=== PATIENT | male | born 1955 | race Caucasian/White ===

== ENCOUNTER → 2016-09-18 | Outpatient (REF) ==
[~2016-09-18] MED LIST: /CELE20CA OR; /PANT40TA; /PANT40TA OR; ABIL2TAB PO; ABILIFY PO; ACET-654 PO; ADVA115A IN; ALB2.5NEB INH; ALBU17IN INH; ALLO10TA PO; AMBI10TA OR; AMRIX; ATARAX; BACL10TA2; BACL10TA2 OR; CALC1CAP31 PO; CENTTAB PO; COMBIN INH; COUM2TAB10 PO; DOXY100T PO; ENDOCET OR; EUCECRE3 TOP; FERR325T PO; FLEXERIL PO; FLUC200T2 PO; GABA-283 PO; GLUC850T; GLUC850T OR; HYDROCODONE/APAP; INDO25CA2 OR; K-TA1TAB PO; LOTR2AER3 TOP; MELO7.5T3 PO; MULTIVIT PO; NEUR100C PO; NEUR400C; NEUR400C OR; NICOINH INH; NYST100024 TOP; OXYC20TA2 PO; OXYC20TA21 PO; OXYC5CAP4 OR; PANT40TA2 PO; PARO40TA PO; PAXI30TA; PAXI30TA OR; PERC5TAB6 PO; PERC5TAB8 OR; PRAV20TA2 OR; PROC1INJ5 INJ; VICO5TAB; VIT D 2000 PO; VIT D 4000 OR; VITA100066 PO; VITAMIN D50000 UNT; VITMTA PO; ZINC220T PO; ZOCO20TA; ZOCO40TA; ZOCO40TA OR; [UNRECOGNIZED DRUG - CODE] IM
[2016-09-18 11:17] LABS: MEAN CORPUSCULAR HEMOGLOBIN 28.9 pg (27.0-33.0); MEAN CORPUSCULAR HGB CONC 30.4 g/dl (32.0-36.5); RED CELL DISTRIBUTION WIDTH 14.6 % (11.5-14.5)
[2016-09-18 11:47] LABS: ALBUMIN 2.8 GM/DL (3.2-5.2); ALBUMIN/GLOBULIN RATIO 0.7 (1.00-1.93); BILIRUBIN,TOTAL 0.4 MG/DL (0.2-1.0); CALCIUM LEVEL 8.6 MG/DL (8.8-10.2); CREATININE FOR GFR 1.3 MG/DL (0.70-1.30); GLOMERULAR FILTRATION RATE 59.9 (>49); POTASSIUM SERUM 4.2 MEQ/L (3.5-5.1); TOTAL PROTEIN 6.8 GM/DL (6.4-8.2)
== END ==
PROVIDERS: ATTEND Internal Medicine
DX: D64.9 Anemia, unspecified (principal)

== ENCOUNTER → 2016-09-25 | Outpatient (REF) ==
[2016-09-25 12:26] LABS: MEAN CORPUSCULAR HGB CONC 30.7 g/dl (32.0-36.5); MEAN CORPUSCULAR VOLUME 94.2 fl (80.0-96.0); RED CELL DISTRIBUTION WIDTH 15.7 % (11.5-14.5); WHITE BLOOD COUNT 7.3 K/mm3 (4.0-10.0)
[2016-09-25 12:41] LABS: PERCENT SATURATION 11.7 % (19.7-37.4)
== END ==
PROVIDERS: ATTEND Internal Medicine
DX: D64.9 Anemia, unspecified (principal)

== ENCOUNTER → 2016-10-08 | Outpatient (REF) ==
[2016-10-08 11:00] LABS: MEAN CORPUSCULAR HEMOGLOBIN 29.4 pg (27.0-33.0); MEAN CORPUSCULAR HGB CONC 30.5 g/dl (32.0-36.5); MEAN CORPUSCULAR VOLUME 96.4 fl (80.0-96.0); RED CELL DISTRIBUTION WIDTH 14.7 % (11.5-14.5); WHITE BLOOD COUNT 8.6 K/mm3 (4.0-10.0)
== END ==
PROVIDERS: ATTEND Internal Medicine
DX: D64.9 Anemia, unspecified (principal)

== ENCOUNTER → 2016-10-14 | Outpatient (REF) ==
[~2016-10-14] MED LIST changes: +AMIT25TA PO; +AQUAOIN2 TOP; +METO5TAB2 PO; +MILKSUS PO; +MYLASUS2 PO; +OXYC-423 PO; +OXYC15TA76 PO; +PREG50CA PO; +WARF4TAB52 PO
[2016-10-14 17:37] LABS: ALBUMIN 3.2 GM/DL (3.2-5.2); ALBUMIN/GLOBULIN RATIO 0.73 (1.00-1.93); ALKALINE PHOSPHATASE 182 U/L (45-117); ALT/SGPT 71 U/L (12-78); ANION GAP 14 MEQ/L (8-16); AST/SGOT 62 U/L (15-37); BILIRUBIN,DIRECT 0.2 MG/DL (0.0-0.2); BILIRUBIN,TOTAL 0.5 MG/DL (0.2-1.0); BLOOD UREA NITROGEN 13 MG/DL (7-18); CALCIUM LEVEL 9.1 MG/DL (8.8-10.2); CARBON DIOXIDE LEVEL 27 MEQ/L (21-32); CHLORIDE LEVEL 99 MEQ/L (98-107); CREATININE FOR GFR 1.26 MG/DL (0.70-1.30); GLOMERULAR FILTRATION RATE > 60.0 (>49); GLUCOSE, FASTING 109 MG/DL (80-110); POTASSIUM SERUM 4.1 MEQ/L (3.5-5.1); SODIUM LEVEL 140 MEQ/L (136-145); TOTAL PROTEIN 7.6 GM/DL (6.4-8.2)
[2016-10-14 17:41] LABS: MEAN CORPUSCULAR HEMOGLOBIN 28.8 pg (27.0-33.0); MEAN CORPUSCULAR HGB CONC 30.9 g/dl (32.0-36.5); MEAN CORPUSCULAR VOLUME 93.3 fl (80.0-96.0); RED CELL DISTRIBUTION WIDTH 15.9 % (11.5-14.5); WHITE BLOOD COUNT 12.1 K/mm3 (4.0-10.0)
== END ==
PROVIDERS: ATTEND Internal Medicine
DX: D64.9 Anemia, unspecified (principal); R11.10 Vomiting, unspecified

== ENCOUNTER 2016-10-15 11:48 | Inpatient (IN) | payer OTHER ==
[~2016-10-15] VITALS: Ht 175.3 cm; Wt 111.2 kg
[~2016-10-15 11:48] MED LIST changes: -AMIT25TA PO; -AQUAOIN2 TOP; -METO5TAB2 PO; -MILKSUS PO; -MYLASUS2 PO; -OXYC-423 PO; -OXYC15TA76 PO; -PREG50CA PO; -WARF4TAB52 PO
[2016-10-15 12:40] LABS: BASO % 0.2 % (0.0-1.0); EOS # 0.1 K/mm3 (0.0-0.50); EOS % 0.6 % (0.0-3.0); LARGE UNSTAINED CELL # 0.2 K/mm3 (0.0-0.4); LARGE UNSTAINED CELL % 1.2 % (0.0-4.0); LYMPH # 1.2 K/mm3 (1.5-4.5); MEAN CORPUSCULAR HEMOGLOBIN 29.4 pg (27.0-33.0); MEAN CORPUSCULAR VOLUME 91.6 fl (80.0-96.0); MONO # 0.6 K/mm3 (0.0-0.8); MONO % 4.1 % (0.0-5.0); NEUTROPHILS # 12.7 K/mm3 (1.8-7.7); NEUTROPHILS % 85.8 % (36.0-66.0); PLATELET COUNT, AUTOMATED 334 k/mm3 (150-450); RED CELL DISTRIBUTION WIDTH 14.8 % (11.5-14.5); WHITE BLOOD COUNT 14.8 K/mm3 (4.0-10.0)
[2016-10-15 13:00] LABS: ALBUMIN 3.5 GM/DL (3.2-5.2); ALBUMIN/GLOBULIN RATIO 0.64 (1.00-1.93); ALKALINE PHOSPHATASE 184 U/L (45-117); ALT/SGPT 63 U/L (12-78); ANION GAP 12 MEQ/L (8-16); AST/SGOT 51 U/L (15-37); BILIRUBIN,DIRECT 0.3 MG/DL (0.0-0.2); BLOOD UREA NITROGEN 16 MG/DL (7-18); CALCIUM LEVEL 9.8 MG/DL (8.8-10.2); CARBON DIOXIDE LEVEL 26 MEQ/L (21-32); CHLORIDE LEVEL 99 MEQ/L (98-107); CREATININE FOR GFR 1.26 MG/DL (0.70-1.30); GLOMERULAR FILTRATION RATE > 60.0 (>49); GLUCOSE, FASTING 142 MG/DL (80-110); POTASSIUM SERUM 3.7 MEQ/L (3.5-5.1); SODIUM LEVEL 137 MEQ/L (136-145)
[2016-10-15] MEDS ORDERED: ONDANSETRON 4MG/2ML VIAL (J2405) As Ordered ONE (13:09)
[2016-10-15] MEDS ORDERED: GASTROGRAFIN SOLUTION 30ML (Q9963) As Ordered ONE (13:33)
[2016-10-15 13:53] LABS: INR 1.54
[2016-10-15] MEDS ORDERED: METOCLOPRAMIDE INJ 10MG/2ML VIAL (J2765) As Ordered ONE (14:15)
[2016-10-15] MEDS ORDERED: fentaNYL 100 MCG/2 ML INJECTION (J3010) As Ordered ONE ×2 (15:22→16:18)
--- NOTE | 2016-10-15 16:04 | REP ---
CT study abdomen and pelvis without IV but with oral contrast: History: Question obstruction. Comparison CT study June 27, 2016. CT findings: Digital panel beater radiograph demonstrates dilated central abdominal bowel loops. The lung bases are essentially clear. There is marked diffuse fatty infiltration of the liver. This is unchanged. Spleen is unremarkable. No adrenal lesion is seen on either side. No pancreatic abnormality is seen. The gallbladder is surgically absent. There are two small stable left renal cysts. The infrarenal abdominal aorta is resected and there is a right axillobifemoral bypass graft seen coursing to the groins. There is extensive postoperative change and deformity of the anterior abdominal wall as previously noted. There is a right lower quadrant colostomy. The patient appears to be status post left colon resection and erectile over sewing. There is some stool however in the rectum. There are multiple dilated small bowel loops in the large ventral hernia with evidence of dilated small bowel loops adherent to the anterior abdominal wall with some adjacent scarring and evidence of anterior abdominal wall fistula. There is an overlying dressing. The adherence and the appearance of fistula are unchanged but the loops involved are much more dilated than on the June 27, 2016 prior study. There is feces like consistency to the content of some of these ileal loops in the right side of the ventral hernia. No free air is seen. No intramural air or definite bowel wall thickening is seen. There is minimal fullness of the intrarenal collecting system on the right and minimal fullness of the left ureter is again seen unchanged. Small cysts are noted in the right kidney as well. Impression: Dilated small bowel loops adherent to the anterior abdominal wall with extensive postoperative deformity and evidence of a enterocutaneous fistula. Partial small bowel obstruction pattern. Other postoperative changes include cholecystectomy, aortic resection and axillobifemoral bypass grafting, as well as lumbar laminectomy and fusion. Renal cysts are again seen and there is marked fatty infiltration of the liver. Signed by Antolin Uribe MD 10/15/2016 04:24 P
[2016-10-15] MEDS ORDERED: BISACODYL 10 MG SUPP As Ordered ONE (16:17)
[2016-10-15] MEDS ORDERED: WARF4TAB52 PO (16:41)
[2016-10-15] MEDS ORDERED: AQUAOIN2 TOP (16:44)
[2016-10-15] MEDS ORDERED: FERR325T PO (16:44)
[2016-10-15] MEDS ORDERED: AMIT25TA PO (16:44)
[2016-10-15] MEDS ORDERED: PREG50CA PO (16:50)
[2016-10-15] MEDS ORDERED: OXYC-423 PO (16:50)
[2016-10-15] MEDS ORDERED: METO5TAB2 PO (16:50)
[2016-10-15] MEDS ORDERED: DOXY100T PO (16:50)
[2016-10-15] MEDS ORDERED: OXYC15TA76 PO (16:50)
[2016-10-15] MEDS ORDERED: MYLASUS2 PO (16:53)
[2016-10-15] MEDS ORDERED: MILKSUS PO (16:53)
[2016-10-15] MEDS ORDERED: LORazepam 2 MG/ML VIAL (J2060) As Ordered ONE (17:54)
[2016-10-15] MEDS ORDERED: MAALOX 30 ML SUSP *UDC PO PRN (18:15)
[2016-10-15] MEDS ORDERED: ALBUTEROL SULFATE 2.5 MG/0.5 ML INH NEB SOLN INH PRN (18:15)
[2016-10-15] MEDS ORDERED: MORPHINE 2 MG/ML 1ML SYRINGE IV PRN (18:15)
[2016-10-15] MEDS ORDERED: METOCLOPRAMIDE 5 MG TAB PO PRN (18:15)
[2016-10-15] MEDS ORDERED: CETACAINE SPRAY 20GM (FLOOR STOCK) As Ordered ONE (18:21)
--- NOTE | 2016-10-15 19:14 | REP ---
Portable chest, single AP view, the patient upright: Comparison 02/20/2011. There is a nasogastric tube terminating satisfactorily in the abdominal left upper quadrant. The lung vines are clear. The cardiac size is normal The orquidea, mediastinum, and bony thorax are unremarkable. Impression: Nasogastric tube. Negative portable chest. Signed by Miguel Ángel Rodgers MD 10/15/2016 07:05 P
[2016-10-15] MEDS ORDERED: MORPHINE 2 MG/ML 1ML SYRINGE As Ordered ONE (19:29)
--- NOTE | 2016-10-15 19:45 | EDDOCDS ---
Nurse's Notes [facility] Name: Nitesh Dolan Age: 61 yrs Sex: Male : 1955 Arrival Date: 10/15/2016 Time: 11:48 Bed 19 Private MD: Tonia Diagnosis: Other intestinal obstruction Presentation: 10/15 11:51 Presenting complaint: Patient states: vomiting x 2 days - ileostomy in place and [facility] retirement concerned for decreased output from ostomy. Adult Sepsis Screening: The patient does not have new or worsening altered mentation. Patient's respiratory rate is less than 22. Systolic blood pressure is greater than 100. Patient has a qSOFA score of 0- Negative Sepsis Screen. Suicide/Homicide risk assessment- the patient denies having any suicidal and/or homicidal ideations and does not present with any other emotional, behavioral or mental health complaints. Status: Patient is not a vehicle service attendant or dependent. Transition of care: patient was not received from another setting of care. 11:51 Acuity: ADA Level 3 [facility] 11:51 Method Of Arrival: Ambulance [facility] Triage Assessment: 12:07 General: Appears unkempt, Behavior is appropriate for age, cooperative. Pain: Location: [facility] abdomen Pain currently is 2 out of 10 on a pain scale. HIV screening NA for this visit Offered previously. The patient is triaged at the bedside. See Assessment in Nurses Notes section of ED record. Neurological: Level of Consciousness is awake, alert, Oriented to person, place, time. Cardiovascular: Capillary refill < 3 seconds Rhythm is sinus tachycardia No ectopy. Respiratory: Airway is patent Respiratory effort is even, unlabored. GI: Abdomen is non- distended obese, Ileostomy site is reddened. Ostomy appliance is intact. small amount of formed stool in appliance other large abdominal fistula with opening to skin and ostomy appliance in place draining yellow colored stool like drainage. tissue reddened and excoriated. Derm: poorly healing incision sites to bilateral lower medial calves. - no drainage, open to air. bilateral lower extremities dusky. skin p/w/d other than noted. Historical: - Allergies: Ambien; Hydromorphone; jenexetine; Lyrica; oxymorphone; Prozac; Remeron; Wellbutrin; Zoloft; - Home Meds: 1. Coumadin 1 mg Oral tab 1 tab SMTRFS 2. ferrous sulfate 325 mg (65 mg iron) Oral cpER twice a day 3. amitriptyline 25 mg Oral tab 1 tab once daily 4. gabapentin 600 mg Oral tab daily 5. Coumadin 2 mg Oral tab 1 tab W 6. pregabalin 50 mg oral cap twice a day 7. OxyContin 15 mg Oral TR12 tid 8. Roxicodone 15 mg Oral tab 1 tab every 6 hours 9. Reglan 5 mg Oral tab 1 tab 4 times per day 10. Tylenol 325 mg Oral tab 2 tabs as needed 11. doxycycline hyclate 100 mg Oral cap 1 cap every 12 hours 12. multivitamin Oral tab daily 13. Protonix 40 mg Oral TbEC 1 tab once daily 14. albuterol sulfate 2.5 mg/0.5 mL Inhl nebu every 4 hours as needed 15. paroxetine HCl 40 mg Oral tab 1 tab once daily 16. zinc sulfate 220 mg Oral tab twice a day 17. Fluconazole 400 mg Oral once daily 18. antacid- alum-mag hydroxide-simethicone [phone]/[phone] give 30 mls PRN Q4 hours 19. milk of magnesium 2400mg/10ml give 10ml daily PRN 20. Dulcolax (bisacodyl) 10 mg Rectal supp 1 suppository daily PRN 21. 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 No barriers to communication noted, The patient speaks fluent [place], Speaks appropriately for age. - Family history: Not pertinent. - : The pt / caregiver states he / she is on anticoagulants: coumadin. Home medication list is obtained from the facility NOV. - Exposure Risk Screening:: None identified. Screenin:22 Screening information is obtained from the patient. Fall risk: At risk due to pml immobility. Assistance ADL's: requires no assistance with activities of daily living. Abuse/DV Screen: The patient / caregiver reports he/she is: not in a situation that causes fear, pain or injury. Nutritional screening: No deficits noted. Advance Directives: There is no active DNR order. home support is adequate. Assessment: 12:52 GI: Pt is actively vomiting small amounts of green liquid. pml 13:45 General: pt reports abdominal pain increased 8/10 - medicated as indicated on emar. pml continues to vomit small amounts fo green emesis following zofran administration . 14:21 General: pt vomiting contrast. INTELLIGENCE SENIOR SERGEANT aware - new orders obtained and administered. Per INTELLIGENCE SENIOR SERGEANT pml if pt unable to tolerate PO than no oral contrast CT. 14:53 General: reports pain is unchanged, 8/10. states no relief with IV morphine. INTELLIGENCE SENIOR SERGEANT aware, pml resps easy and unlabored, skin p/w/d. continues to vomit small amounts of green emesis, . 15:30 General: Appears uncomfortable, Behavior is cooperative. Pain: Location: right upper ld5 quadrant and left upper quadrant Pain currently is 10 out of 10 on a pain scale. Quality of pain is described as sharp. Neurological: Level of Consciousness is awake, obeys commands. Respiratory: Airway is patent Respiratory effort is even, labored. GI: Abdomen is distended, Bowel sounds present X 4 quads. Abd is tender to palpation in right upper quadrant and left upper quadrant Reports nausea, vomiting. GI: Colostomy site Ostomy appliance is intact. abdominal fistula appliance intact. Derm: wounds in various stages of healing to BLE. 16:00 General: Pt reports decreased pain after Fentanyl administration. Awaiting CT results. ld5 Family members at bedside. Will continue to monitor. 16:36 General: Family member out to report increased pain. Pt laying in bed moaning and ld5 stated "oww it hurts". Pt medicated per orders. Will continue to monitor. 16:50 General: Ostomy appliance removed and small amount of hard stool removed from stoma. ld5 Suppository administered. Will monitor for results. 17:00 General: Possibility of NG tube explained to pt by provider and this RN. Pt states ld5 "well they better be putting me out for this". Support provided to pt. Will continue to monitor. 17:13 General: No new stool in ostomy since suppository administration. Pt reports decreased ld5 pain. Will continue to monitor. 17:15 General: Dr. Morse in to assess pt. ld5 17:30 General: Pt requesting pain medication. Provider aware. No new orders at this time. ld5 17:40 General: Provider in to speak with pt about necessity of NG tube. Pt to be ld5 premedicated. Will continue to monitor. 17:55 General: Pt requesting pain medication again. It was explained to pt that pain may be ld5 alleviated after the NG tube is placed. Pt remains hesitant about tube placement. Hospitalist in to assess pt. 18:45 General: NG tube inserted. 600 ml of bile out immediately. Pt immediately requested ld5 pain medication. This RN explained to pt that NG tube was just placed and the tube needed some time to work. Will continue to monitor. 19:41 General: Appears uncomfortable, Behavior is cooperative. Pain: Location: abdomen Pain mgs currently is 8 out of 10 on a pain scale. Neurological: Level of Consciousness is awake, obeys commands. Cardiovascular: Capillary refill < 3 seconds. Respiratory: Airway is patent Respiratory effort is even, unlabored. GI: Abdomen is distended. Derm: Patient has healing wounds on bilateral lower extremities. Vital Signs: 11:59 BP 135 / 92; Pulse 109; Resp 19; Temp 98.5(O); Pulse Ox 94% on R/A; lr2 12:00 Weight 110.22 kg (R); Height 5 ft. 9 in. (175.26 cm) (R); Pain 2/10; lr2 12:11 Pulse 104 MON; Pulse Ox 93% ; pml 12:11 BP 149 / 101 (auto/); pml 12:26 Pulse 112 MON; Pulse Ox 93% ; pml 12:26 BP 153 / 100 (auto/); pml 12:41 Pulse 108 MON; Pulse Ox 95% ; pml 12:41 BP 158 / 99 (auto/); pml 12:56 Pulse 102 MON; Pulse Ox 94% ; pml 12:56 BP 159 / 97 (auto/); pml 13:11 Pulse 100 MON; Pulse Ox 93% ; pml 13:11 BP 150 / 95 (auto/); pml 13:26 Pulse 106 MON; Pulse Ox 92% ; pml 13:26 BP 156 / 99 (auto/); pml 13:41 Pulse 120 MON; Pulse Ox 95% ; pml 13:41 BP 153 / 94 (auto/); pml 13:56 Pulse 104 MON; Pulse Ox 94% ; pml 13:56 BP 185 / 82 (auto/); pml 14:11 Pulse 114 MON; Pulse Ox 93% ; pml 14:11 BP 163 / 79 (auto/); pml 14:26 BP 169 / 79 (auto/); ld5 14:26 Pulse 102 MON; Pulse Ox 94% ; ld5 14:52 BP 154 / 81 (auto/); ld5 14:52 Pulse 104 MON; Pulse Ox 94% ; ld5 14:56 BP 153 / 86 (auto/); ld5 14:57 Pulse 102 MON; Pulse Ox 95% ; ld5 15:56 BP 158 / 86 (auto/); ld5 15:56 Pulse 100 MON; Pulse Ox 94% ; ld5 16:01 BP 158 / 86; Pulse 104; Resp 20; Pulse Ox 94% on R/A; Pain 6/10; ld5 16:11 BP 164 / 84 (auto/); ld5 16:11 Pulse 110 MON; Pulse Ox 93% ; ld5 16:26 Pulse 104 MON; Pulse Ox 95% ; ld5 16:26 BP 152 / 79 (auto/); ld5 16:41 BP 139 / 75 (auto/); ld5 16:41 Pulse 106 MON; Pulse Ox 93% ; ld5 17:22 Pulse 110 MON; Pulse Ox 94% ; ld5 18:41 BP 149 / 72; Pulse 105; Resp 20; Temp 98; Pulse Ox 94% on R/A; ld5 19:43 BP 143 / 91; Pulse 105; Resp 18; Temp 98.7(TE); Pulse Ox 95% ; mgs 12:00 Body Mass Index 35.88 (110.22 kg, 175.26 cm) lr2 17:22 Pt requesting BP cuff be removed for a period of time due to discomfort to arms ld5 Vitals: 12:07 Log In Time N/A - ambulance arrival. [facility] ED Course: 11:49 Patient visited by Gabriela Lopez Tableau Developer. lbd 11:49 Tonia is Private Physician. lbd 11:49 Patient moved to Waiting lbd 11:50 Patient moved to 19 lbd 11:52 Triage Initiated pml 12:01 Patient has correct armband on for positive identification. Placed in gown. Bed in low lr2 position. Call light in reach. Side rails up X 1. Side rails up X2. security monitor on. Pulse ox on. NIBP on. 12:02 Patient visited by Nora Campoverde. lr2 12:11 Patient visited by Lashawn Burton RN. pml 12:22 The patient / caregiver is instructed regarding the plan of care and ED course. pml 12:22 Inserted peripheral IV: 18gauge IV in right antecubital area and blood collected. pml Patient tolerated the procedure well. 12:23 Patient visited by Lashawn Burton RN. pml 12:54 Patient visited by Lashawn Burton RN. pml 12:58 [facility] ke 12:58 Patient visited by Rosales Huerta FNP. ke 12:58 Patient visited by Rosales Huerta FNP. ke 13:29 Patient visited by Rosales Huerta FNP. ke 13:45 Patient visited by Lashawn Burton RN. pml 13:49 [facility] Payment Agreement was scanned into Veeip and attached to record. lg 14:12 Patient visited by Rosales Huerta FNP. ke 14:22 Patient visited by Lashawn Burton RN. pml 14:54 Patient visited by Lashawn Burton RN. pml 15:26 Patient visited by Rosales Huerta FNP. ke 15:34 PCR was scanned into Veeip and attached to record. gb 15:57 Patient visited by Rosales Huerta FNP. ke 16:01 Patient visited by Nora Dumont,LINA. ld5 16:07 Omid Morse MD is Hospitalizing Provider. ke 16:14 CT ABD & PELVIS: Oral Contrast Only Returned. EDMS 16:36 Patient visited by Nora Dumont,LINA. ld5 17:25 Patient visited by Nora Dumont,RN. ld5 18:08 Patient visited by Nora Dumont,RN. ld5 18:40 NGT inserted 18 Fr. via right nare. Placement verified. Returned bile. to intermittent ld5 suction. 19:20 PORTABLE CHEST X-RAY Returned. EDMS 19:22 Patient visited by Nora Dumont RN. ld5 19:23 Cesar Hoffman RN is Primary Nurse. mgs 19:42 No procedures done that require assistance. mgs Administered Medications: 13:13 Drug: NS 0.9% 1000 ml [sodium chloride 0.9 % injection solution] Route: IV; Rate: 250 pml mL/hr; Site: right antecubital; 13:13 Drug: Ondansetron 8 mg Route: IVP; Site: right antecubital; pml 13:44 Drug: morphine 4 mg [morphine 4 mg/mL intravenous cartridge (1 mL)] Route: IVP; Site: pml right antecubital; 14:10 Follow up: Response: No significant change. pml 14:20 Drug: Metoclopramide 10 mg [metoclopramide 5 mg/mL injection solution] Route: IV; Rate: pml 40 mg/hr; Infused Over: 15 mins; Site: right antecubital; 15:30 Drug: fentaNYL (PF) 50 mcg [fentanyl (PF) 50 mcg/mL injection solution (1 mL)] Route: ld5 IVP; Site: right antecubital; 16:01 Follow up: BP 158 / 86; Pulse 104 bpm; Resp 20 bpm; Pulse Ox 94% RA; Pain 6/10 Adult; ld5 Response: Confirmed pt not driving.; Pain is decreased 16:25 Drug: fentaNYL (PF) 50 mcg [fentanyl (PF) 50 mcg/mL injection solution (1 mL)] Route: ld5 IVP; Site: right antecubital; 16:40 Drug: Bisacodyl 10 mg [bisacodyl 10 mg rectal suppository (1 supp)] Route: OK; ld5 18:16 Drug: LORazepam 2 mg [lorazepam 2 mg/mL injection solution (1 mL)] Route: IVP; Site: ld5 right antecubital; Order Results: Lab Order: CBC with Diff; SPEC'M 10/15/16 12:20 Test: WHITE BLOOD COUNT; Value: 14.8; Range: 4.0-10.0; Abnormal: Above high normal; Units: K/mm3; Status: F Test: RED BLOOD COUNT; Value: 4.95; Range: 4.30-6.10; Units: M/mm3; Status: F Test: HEMOGLOBIN; Value: 14.5; Range: 14.0-18.0; Units: g/dl; Status: F Test: HEMATOCRIT; Value: 45.4; Range: 42.0-52.0; Units: %; Status: F Test: MEAN CORPUSCULAR VOLUME; Value: 91.6; Range: 80.0-96.0; Units: fl; Status: F Test: MEAN CORPUSCULAR HEMOGLOBIN; Value: 29.4; Range: 27.0-33.0; Units: pg; Status: F Test: MEAN CORPUSCULAR HGB CONC; Value: 32.0; Range: 32.0-36.5; Units: g/dl; Status: F Test: RED CELL DISTRIBUTION WIDTH; Value: 14.8; Range: 11.5-14.5; Abnormal: Above high normal; Units: %; Status: F Test: PLATELET COUNT, AUTOMATED; Value: 334; Range: 150-450; Units: k/mm3; Status: F Test: NEUTROPHILS %; Value: 85.8; Range: 36.0-66.0; Abnormal: Above high normal; Units: %; Status: F Test: LYMPH %; Value: 8.0; Range: 24.0-44.0; Abnormal: Below low normal; Units: %; Status: F Test: MONO %; Value: 4.1; Range: 0.0-5.0; Units: %; Status: F Test: EOS %; Value: 0.6; Range: 0.0-3.0; Units: %; Status: F Test: BASO %; Value: 0.2; Range: 0.0-1.0; Units: %; Status: F Test: LARGE UNSTAINED CELL %; Value: 1.2; Range: 0.0-4.0; Units: %; Status: F Test: NEUTROPHILS #; Value: 12.7; Range: 1.8-7.7; Abnormal: Above high normal; Units: K/mm3; Status: F Test: LYMPH #; Value: 1.2; Range: 1.5-4.5; Abnormal: Below low normal; Units: K/mm3; Status: F Test: MONO #; Value: 0.6; Range: 0.0-0.8; Units: K/mm3; Status: F Test: EOS #; Value: 0.1; Range: 0.0-0.50; Units: K/mm3; Status: F Test: BASO #; Value: 0.0; Range: 0.0-0.2; Units: K/mm3; Status: F Test: LARGE UNSTAINED CELL #; Value: 0.2; Range: 0.0-0.4; Units: K/mm3; Status: F Lab Order: BMP; SPEC'M 10/15/16 12:20 Test: GLUCOSE, FASTING; Value: 142; Range: 80-110; Abnormal: Above high normal; Units: MG/DL; Status: F Test: BLOOD UREA NITROGEN; Value: 16; Range: 7-18; Units: MG/DL; Status: F Test: CREATININE FOR GFR; Value: 1.26; Range: 0.70-1.30; Units: MG/DL; Status: F Test: GLOMERULAR FILTRATION RATE; Value: > 60.0; Range: >49; Status: F Test: SODIUM LEVEL; Value: 137; Range: 136-145; Units: MEQ/L; Status: F Test: POTASSIUM SERUM; Value: 3.7; Range: 3.5-5.1; Units: MEQ/L; Status: F Test: CHLORIDE LEVEL; Value: 99; Range: 98-107; Units: MEQ/L; Status: F Test: CARBON DIOXIDE LEVEL; Value: 26; Range: 21-32; Units: MEQ/L; Status: F Test: ANION GAP; Value: 12; Range: 8-16; Units: MEQ/L; Status: F Test: CALCIUM LEVEL; Value: 9.8; Range: 8.8-10.2; Units: MG/DL; Status: F Test Note: ; Units are mL/min/1.73 m2 Chronic Kidney Disease Staging per NKF: Stage I & II GFR >=60 Normal to Mildly Decreased Stage III GFR 30-59 Moderately Decreased Stage IV GFR 15-29 Severely Decreased Stage V GFR <15 Very Little GFR Left ESRD GFR <15 on INTERNSHIP COORDINATOR Lab Order: Liver Profile; SPEC'M 10/15/16 12:20 Test: AST/SGOT; Value: 51; Range: 15-37; Abnormal: Above high normal; Units: U/L; Status: F Test: ALT/SGPT; Value: 63; Range: 12-78; Units: U/L; Status: F Test: ALKALINE PHOSPHATASE; Value: 184; Range: 45-117; Abnormal: Above high normal; Units: U/L; Status: F Test: BILIRUBIN,TOTAL; Value: 1.0; Range: 0.2-1.0; Abnormal: Delta; Units: MG/DL; Status: F Test: BILIRUBIN,DIRECT; Value: 0.3; Range: 0.0-0.2; Abnormal: Above high normal; Units: MG/DL; Status: F Test: TOTAL PROTEIN; Value: 9.0; Range: 6.4-8.2; Abnormal: Above high normal; Units: GM/DL; Status: F Test: ALBUMIN; Value: 3.5; Range: 3.2-5.2; Units: GM/DL; Status: F Test: ALBUMIN/GLOBULIN RATIO; Value: 0.64; Range: 1.00-1.93; Abnormal: Below low normal; Status: F Lab Order: Lipase; SPEC'M 10/15/16 12:20 Test: LIPASE; Value: 73; Range: 73-393; Units: U/L; Status: F Lab Order: -Influenza A&B Rapid Antigen - Nose; SPEC'M 10/15/16 13:32 Test: INFLUENZA A RAPID SCR by ICA; Value: INFLUENZA A RESULTS POSITIVE; Abnormal: Abnormal; Status: F Test: INFLUENZA A RAPID SCR by ICA; Value: Comments:; Status: F Test: INFLUENZA B RAPID SCR by ICA; Value: INFLUENZA B RESULTS NEGATIVE; Status: F Test Note: ; The Influenza test is a direct rapid immunoassay for the qualitative detection of Influenza viral antigen. Cell culture (Viral Culture) testing should be considered to confirm NEGATIVE results and to assist in detecting other viruses that can provide similar clinical symptoms. Please contact the lab within 24 hours ([phone]) if confirmatory testing is desired. Lab Order: PT/INR; SPEC'M 10/15/16 12:20 Test: PROTHROMBIN TIME; Value: 18.6; Range: 12.3-14.5; Abnormal: Above high normal; Units: SECONDS; Status: F Test: INR; Value: 1.54; Status: F Test Note: ; THERAPUTIC HUMAN INR VALUES INDICATIONS NORMAL RANGES PROPHYLAXIS/TREATMENT OF: VENOUS THROMBOSIS 2.0-3.0 PULMONARY EMBOLISM 2.0-3.0 PREVENTION OF SYSTEMIC EMBOLISM FROM: TISSUE HEART VALVES 2.0-3.0 ACUTE MYOCARDIAL INFARCTION 2.0-3.0 VALVULAR HEART DISEASE 2.0-3.0 ATRIAL FIBRILLATION 2.0-3.0 MECHANICAL VALVES(HIGH RISK) 2.5-3.5 RECURRENT MYOCARDIAL INFARCTION 2.5-3.5 Radiology Order: CT ABD & PELVIS: Oral Contrast Only Test: CT ABD & PELVIS: Oral Contrast Only REASON FOR EXAMINATION: r/o obstruction; CT study abdomen and pelvis without IV but with oral contrast:; ; History: Question obstruction.; ; Comparison CT study June 27, 2016.; ; CT findings: Digital desk assistant radiograph demonstrates dilated central abdominal; bowel loops.; ; The lung bases are essentially clear. There is marked diffuse fatty infiltration; of the liver. This is unchanged. Spleen is unremarkable. No adrenal lesion is; seen on either side. No pancreatic abnormality is seen. The gallbladder is; surgically absent. There are two small stable left renal cysts. The infrarenal; abdominal aorta is resected and there is a right axillobifemoral bypass graft; seen coursing to the groins. There is extensive postoperative change and; deformity of the anterior abdominal wall as previously noted. There is a right; lower quadrant colostomy. The patient appears to be status post left colon; resection and erectile over sewing. There is some stool however in the rectum.; There are multiple dilated small bowel loops in the large ventral hernia with; evidence of dilated small bowel loops adherent to the anterior abdominal wall; with some adjacent scarring and evidence of anterior abdominal wall fistula.; There is an overlying dressing. The adherence and the appearance of fistula are; unchanged but the loops involved are much more dilated than on the June 272015 prior study. There is feces like consistency to the content of some of; these ileal loops in the right side of the ventral hernia. No free air is seen.; No intramural air or definite bowel wall thickening is seen. There is minimal; fullness of the intrarenal collecting system on the right and minimal fullness of; the left ureter is again seen unchanged. Small cysts are noted in the right; kidney as well.; ; Impression:; ; Dilated small bowel loops adherent to the anterior abdominal wall with extensive; postoperative deformity and evidence of a enterocutaneous fistula. Partial small; bowel obstruction pattern. Other postoperative changes include cholecystectomy,; aortic resection and axillobifemoral bypass grafting, as well as lumbar; laminectomy and fusion. Renal cysts are again seen and there is marked fatty; infiltration of the liver.; ; ; Signed by; Antolin Uribe MD 10/15/2016 04:24 P; Radiology Order: PORTABLE CHEST X-RAY Test: PORTABLE CHEST X-RAY REASON FOR EXAMINATION: r/o infiltrate; Portable chest, single AP view, the patient upright:; ; Comparison 02/20/2011.; ; There is a nasogastric tube terminating satisfactorily in the abdominal left; upper quadrant.; ; The lung vines are clear. The cardiac size is normal; ; The orquidea, mediastinum, and bony thorax are unremarkable.; ; Impression:; ; Nasogastric tube. Negative portable chest.; ; ; Signed by; Miguel Ángel Rodgers MD 10/15/2016 07:05 P; Outcome: 16:08 Decision to Hospitalize by Provider. ke 19:42 Discharge Assessment: Patient awake, alert and oriented x 3. No cognitive and/or mgs functional deficits noted. Patient verbalized understanding of disposition instructions. patient administered narcotics - yes. Patient was admitted to the hospital or transferred to another facility. The following High Risk Discharge criteria are identified: None. Admitted to Med/Surg accompanied by tech, via stretcher, with chart. Condition: stable. Property :Personal belongings accompany Pt. 19:43 CT Study completed. mgs 19:44 Patient left the ED. mgs Signatures: Dispatcher [employer] EDMS Gabriela Lopez, Tableau Developer Unit lbd Soo Pena, Reg Reg gb Carlos Culver, Reg Reg lg Rosales Huerta, PRESIDENTIAL SUPPORT SPECIALIST PRESIDENTIAL SUPPORT SPECIALIST Nora MartinezRN RN ld5 Lashawn Burton RN RN pml Sheldon, Matthew,Nora Appiah RN lr2 [facility]
--- NOTE | 2016-10-15 19:45 | EDDOCDS ---
Physician Documentation [facility] Name: Nitesh Dolan Age: 61 yrs Sex: Male : 1955 Arrival Date: 10/15/2016 Time: 11:48 Bed 19 Private MD: Tonia Disposition: 10/15/16 16:08 Hospitalization ordered by Omid Morse for Inpatient Admission. Preliminary diagnosis is Other intestinal obstruction. - Bed requested for 4 [place]. - Status is Inpatient Admission. mgs - Condition is Stable. - Problem is an ongoing problem. - Symptoms are unchanged. Historical: - Allergies: Ambien; Hydromorphone; jenexetine; Lyrica; oxymorphone; Prozac; Remeron; Wellbutrin; Zoloft; - Home Meds: 1. Coumadin 1 mg Oral tab 1 tab SMTRFS 2. ferrous sulfate 325 mg (65 mg iron) Oral cpER twice a day 3. amitriptyline 25 mg Oral tab 1 tab once daily 4. gabapentin 600 mg Oral tab daily 5. Coumadin 2 mg Oral tab 1 tab W 6. pregabalin 50 mg oral cap twice a day 7. OxyContin 15 mg Oral TR12 tid 8. Roxicodone 15 mg Oral tab 1 tab every 6 hours 9. Reglan 5 mg Oral tab 1 tab 4 times per day 10. Tylenol 325 mg Oral tab 2 tabs as needed 11. doxycycline hyclate 100 mg Oral cap 1 cap every 12 hours 12. multivitamin Oral tab daily 13. Protonix 40 mg Oral TbEC 1 tab once daily 14. albuterol sulfate 2.5 mg/0.5 mL Inhl nebu every 4 hours as needed 15. paroxetine HCl 40 mg Oral tab 1 tab once daily 16. zinc sulfate 220 mg Oral tab twice a day 17. Fluconazole 400 mg Oral once daily 18. antacid- alum-mag hydroxide-simethicone [phone]/5ml give 30 mls PRN Q4 hours 19. milk of magnesium 2400mg/10ml give 10ml daily PRN 20. Dulcolax (bisacodyl) 10 mg Rectal supp 1 suppository daily PRN 21. Enema 19-7 gram/118 mL Rectal enem as needed - PMHx: Anemia; Anxiety; CAD; cardiac arrest (2013); Chronic kidney disease; COPD; Depression; disseminated candidiasis; gastroparesis; GERD; Hiatal Hernia; Intestinal fisula x2 (goes to skin surface); AL; MRSA; Osteoarthritis; rhabdomyolysis; Ruptured aortic valve; sacral decubitus ulcer; sepsis; Sleep Apnea w/o CPAP; Spinal Stenosis; spondylothesis of lumbar spine; Temproary hemodialysis; ESBL; - PSHx: Cholecystectomy; discetomy; Tracheostomy; trach removal; Hernia repair; left elbow; shoulder surgery; vascular surgery; Appendectomy; Colostomy Construction; - Social history: Smoking status: Patient states former smoker of tobacco. No barriers to communication noted, The patient speaks fluent Maltese, Speaks appropriately for age. - Family history: Not pertinent. - : The pt / caregiver states he / she is on anticoagulants: coumadin. Home medication list is obtained from the facility NOV. - Exposure Risk Screening:: None identified. Vital Signs: 10/15 11:59 BP 135 / 92; Pulse 109; Resp 19; Temp 98.5(O); Pulse Ox 94% on R/A; lr2 12:00 Weight 110.22 kg / 242.99 lbs (R); Height 5 ft. 9 in. (175.26 cm) (R); Pain 2/10; lr2 12:11 Pulse 104 MON; Pulse Ox 93% ; pml 12:11 BP 149 / 101 (auto/); pml 12:26 Pulse 112 MON; Pulse Ox 93% ; pml 12:26 BP 153 / 100 (auto/); pml 12:41 Pulse 108 MON; Pulse Ox 95% ; pml 12:41 BP 158 / 99 (auto/); pml 12:56 Pulse 102 MON; Pulse Ox 94% ; pml 12:56 BP 159 / 97 (auto/); pml 13:11 Pulse 100 MON; Pulse Ox 93% ; pml 13:11 BP 150 / 95 (auto/); pml 13:26 Pulse 106 MON; Pulse Ox 92% ; pml 13:26 BP 156 / 99 (auto/); pml 13:41 Pulse 120 MON; Pulse Ox 95% ; pml 13:41 BP 153 / 94 (auto/); pml 13:56 Pulse 104 MON; Pulse Ox 94% ; pml 13:56 BP 185 / 82 (auto/); pml 14:11 Pulse 114 MON; Pulse Ox 93% ; pml 14:11 BP 163 / 79 (auto/); pml 14:26 BP 169 / 79 (auto/); ld5 14:26 Pulse 102 MON; Pulse Ox 94% ; ld5 14:52 BP 154 / 81 (auto/); ld5 14:52 Pulse 104 MON; Pulse Ox 94% ; ld5 14:56 BP 153 / 86 (auto/); ld5 14:57 Pulse 102 MON; Pulse Ox 95% ; ld5 15:56 BP 158 / 86 (auto/); ld5 15:56 Pulse 100 MON; Pulse Ox 94% ; ld5 16:01 BP 158 / 86; Pulse 104; Resp 20; Pulse Ox 94% on R/A; Pain 6/10; ld5 16:11 BP 164 / 84 (auto/); ld5 16:11 Pulse 110 MON; Pulse Ox 93% ; ld5 16:26 Pulse 104 MON; Pulse Ox 95% ; ld5 16:26 BP 152 / 79 (auto/); ld5 16:41 BP 139 / 75 (auto/); ld5 16:41 Pulse 106 MON; Pulse Ox 93% ; ld5 17:22 Pulse 110 MON; Pulse Ox 94% ; ld5 18:41 BP 149 / 72; Pulse 105; Resp 20; Temp 98; Pulse Ox 94% on R/A; ld5 19:43 BP 143 / 91; Pulse 105; Resp 18; Temp 98.7(TE); Pulse Ox 95% ; mgs 12:00 Body Mass Index 35.88 (110.22 kg, 175.26 cm) lr2 17:22 Pt requesting BP cuff be removed for a period of time due to discomfort to arms ld5 MDM: 12:01 IV Saline Lock ordered. br1 12:02 CBC with Diff Ordered. EDMS 12:02 BMP Ordered. EDMS 12:02 Liver Profile Ordered. EDMS 12:02 Lipase Ordered. EDMS 13:06 NS 0.9% 1000 ml IV at 250 mL/hr continuous ordered. ke 13:06 Ondansetron 8 mg IVP once ordered. ke 13:06 Obtain sample by nasopharyngeal swab ordered. ke 13:07 CT ABD & PELVIS: Oral Contrast Only Ordered. EDMS 13:07 -Influenza A&B Rapid Antigen - Nose Ordered. EDMS 13:07 CBC with Diff Reviewed. ke 13:07 BMP Reviewed. ke 13:07 Liver Profile Reviewed. ke 13:07 Lipase Reviewed. ke 13:16 PT/INR Ordered. EDMS 13:37 morphine 4 mg IVP once ordered. ke 13:37 Financial registration complete. lg 13:49 [facility] [place] Payment Agreement was scanned into [employer] and attached to record. lg 14:01 -Influenza A&B Rapid Antigen - Nose Reviewed. ke 14:01 PT/INR Reviewed. ke 14:12 Metoclopramide 10 mg IV at 40 mg/hr once over 15 mins ordered. ke 15:15 fentaNYL (PF) 50 mcg IVP once ordered. ke 15:34 PCR was scanned into [employer] and attached to record. gb 16:09 Bisacodyl Suppository 10 mg WI once ordered. ke 16:17 fentaNYL (PF) 50 mcg IVP once ordered. ke 17:34 NG/OG Tube 18Fr to L.I.S. with hourly monitoring for placement ordered. ke 17:34 LORazepam 2 mg IVP once ordered. ke 18:15 Admission / Observation Status ordered. EDMS 18:15 NPO DIET ordered. EDMS 18:19 URINALYSIS Ordered. EDMS 18:19 URINE CULTURE Ordered. EDMS 18:19 BLOOD CULTURES Ordered. EDMS 18:20 PORTABLE CHEST X-RAY Ordered. EDMS 18:22 ELECTROCARDIOGRAM ADULT ordered. EDMS 19:34 CBC WITH DIFFERENTIAL Ordered. EDMS 19:34 COMPLETE COMPHRENSIVE METABOLI Ordered. EDMS 19:34 morphine 1 mg IVP once ordered. mgs 19:34 MAGNESIUM LEVEL Ordered. EDMS 19:34 PROTHROMBIN TIME PROFILE\E\INR Ordered. EDMS Administered Medications: 13:13 Drug: NS 0.9% 1000 ml [sodium chloride 0.9 % injection solution] Route: IV; Rate: 250 pml mL/hr; Site: right antecubital; 13:13 Drug: Ondansetron 8 mg Route: IVP; Site: right antecubital; pml 13:44 Drug: morphine 4 mg [morphine 4 mg/mL intravenous cartridge (1 mL)] Route: IVP; Site: pml right antecubital; 14:10 Follow up: Response: No significant change. pml 14:20 Drug: Metoclopramide 10 mg [metoclopramide 5 mg/mL injection solution] Route: IV; Rate: pml 40 mg/hr; Infused Over: 15 mins; Site: right antecubital; 15:30 Drug: fentaNYL (PF) 50 mcg [fentanyl (PF) 50 mcg/mL injection solution (1 mL)] Route: ld5 IVP; Site: right antecubital; 16:01 Follow up: BP 158 / 86; Pulse 104 bpm; Resp 20 bpm; Pulse Ox 94% RA; Pain 02/22 Adult; ld5 Response: Confirmed pt not driving.; Pain is decreased 16:25 Drug: fentaNYL (PF) 50 mcg [fentanyl (PF) 50 mcg/mL injection solution (1 mL)] Route: ld5 IVP; Site: right antecubital; 16:40 Drug: Bisacodyl 10 mg [bisacodyl 10 mg rectal suppository (1 supp)] Route: WI; ld5 18:16 Drug: LORazepam 2 mg [lorazepam 2 mg/mL injection solution (1 mL)] Route: IVP; Site: ld5 right antecubital; Signatures: Dispatcher [employer] EDMS Soo Pena, Reg Reg gb Carlos Culver, Reg Reg lg Rosales Huerta, WARP HAULER WARP HAULER Tristian Sun MD MD br1 Lashawn BurtonRN RN pml Cesar Hoffman RN RN Gracy Rhodes RN RN lmg Dickerson, Laura RN ld5 The chart was reviewed and I authenticate all verbal orders and agree with the evaluation and treatment provided.Attachments: 13:49 [facility] Payment Agreement lg MTDD
[2016-10-15 20:00] VITALS: BP 134/98
[2016-10-15] MEDS ORDERED: NS 1,000 ML IV SCH (20:00)
--- NOTE | 2016-10-15 20:13 | CR ---
DATE OF CONSULTATION: 10/15/2016 REASON FOR CONSULTATION: Partial small bowel obstruction. HISTORY OF PRESENT ILLNESS: The patient is here after [facility]. Essentially had developed nausea, vomiting, bilious vomiting, abdominal distension and was transferred to the emergency room for further evaluation. Dr. Costello saw him last year, it has been just over a year, and at that time he had a very similar presentation with a small bowel obstruction present. He essentially had a history of an anterior approach to a lower back procedure, ended up having bleeding which resulted in a left colectomy and then axillary bifemoral bypass graft. 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 He has been seeing Dr. Silva in the wound clinic for evaluation of this/treatment of this. He has a chronic abdominal wall hernia that has been not intervened or operated on since his original surgery. It sounds as though his family was told that he was never to have an operation again otherwise he would "." I am not sure if that is from a cardiac standpoint or from abdominal surgery standpoint. In any case, he had a right-sided ostomy placed since that time and has had chronic wound problems. Once again presents for acute onset of abdominal distension, nausea, vomiting. PAST MEDICAL HISTORY: Significant for history of anemia, anxiety, coronary artery disease (CAD), cardiac arrest, chronic kidney disease, depression, Desiree sepsis, gastroparesis, gastroesophageal (GE) reflux disease, hiatal hernia, enterocutaneous fistula, methicillin-resistant Staphylococcus aureus (MRSA), myocardial infarctions (MIs), osteoarthritis, rhabdomyolysis, ruptured aortic valve, sacral decubitus, sepsis, sleep apnea, CPAP needs, spinal stenosis, cholecystectomy, discectomy, tracheostomy with a trach removal, hernia repair, with left elbow/shoulder surgery, aortobifemoral which was then revised after being infected to a axillary bifemoral, appendectomy, and colostomy. MEDICATIONS: Include: - Coumadin - iron - amitriptyline - gabapentin - pregabalin - OxyContin - Roxicodone - Reglan - Tylenol - doxycycline - multivitamin - Protonix - albuterol - paroxetine - zinc - fluconazole - antacids - Milk of Magnesia as needed - Dulcolax via the ostomy as needed BRIEF PHYSICAL EXAMINATION: The patient is a 61-year-old male who looks older than stated age. HEENT is unremarkable. NECK: Supple without adenopathy. LUNGS: Are clear anteriorly, although decreased at the bases posteriorly. HEART: Regular with a few ectopic beats. ABDOMEN: Distended, tympanitic without guarding, without rebound. No peritoneal signs are appreciated. Does have an enterocutaneous fistula in the midline that has an ostomy bag/appliance on this and has an ostomy bag in the right lower quadrant that does not have any significant drainage within the bag itself. His CT scan was reviewed and indeed revealed some dilated small bowel up until the enterocutaneous fistula and it seems to be decompressed distally to this. IMPRESSION AND PLAN: The patient has evidence of an enterocutaneous fistula, some adhesions along the abdominal wall/large midline hernia that he has. At this point my recommendation is that he be treated non operatively with nothing by mouth, nasogastric (NG) tube, and followup x-rays in the morning. Unfortunately, if he needs operative intervention he will probably need a multi-specialty approach for his operative repair, may need some muscle flaps, etc., but at this point will see if this cannot be reversed with simple nothing by mouth and IV fluids. May be reasonable while he is here to place him on some octreotide to also decrease his fluid output via the ostomy and may also be reasonable as well to start him on some total parenteral nutrition (TPN) sooner than later. Given that he has a right axillary bifemoral, more reasonable to put a peripherally inserted central catheter (PICC) line in the left arm if necessary.
--- NOTE | 2016-10-15 20:49 | HPEPDOC ---
General Date of Admission Oct 15, 2016 at 18:07 Chief Complaint The patient is a 61-year-old male Presented to the ER from [place] because of abdominal pain, nausea and vomiting since 2 days duration. History of Present Illness Patient is a 61 year old male with an extensive past medical history who presented from [facility] because of abdominal pain associated with nausea and vomiting for 2 days duration. He noted yesterday he began having nausea and vomiting and later progressed to abdominal pain diffusely. He noted that he has vomiting 5-10x a day, with greenish vomit, denied any blood in it. He has an ostomy and a fistula site that he has noticed a slightly greater amount of output. He denies any fever or chills at the [place]. He denies any chest pain, shortness of breath, cough, or urinary discomfort. Patient had a scheduled elective back surgery 1 year ago and had many complications since then. He has developed bacteremia with Staph epidermis and fungia. He has been put on antibiotics and antifungal agents since that point and still remains on them currently. Unfortunately the back surgery was not completed, because in the first phase of the surgery he had an extensive bleeding complication requiring repair of his aorta and multiple (25) units of PRBC transfusion. He later developed multiple systems failure and had a colonic preformation and a fistula, for which he has a colostomy and an ostomy Home Medications Scheduled (Aquaphor) 1 Oin Oin 1 DOSE TOP 3XW (Reported) BID MON, WED, FRI - APPLY TO CHEST AND LEGS Amitriptyline HCl (Amitriptyline HCl) 25 Mg Tab 25 MG PO QHS (Reported) Doxycycline Hyclate (Doxycycline Hyclate) 100 Mg Tab 100 MG PO BID (Reported) Ferrous Sulfate (Ferrous Sulfate) 325 Mg Tab 325 MG PO DAILY (Reported) Fluconazole (Fluconazole) 200 Mg Tab 400 MG PO DAILY (Reported) Gabapentin (Gabapentin) 400 Mg Cap 400 MG PO TID (Reported) Multivitamins *[facility] STOCKED* (Thera M Plus *[facility] STOCKED*) 1 Tab Tab 1 TAB PO DAILY (Reported) Oxycodone HCl (Oxycodone HCl ER) 15 Mg Tab 15 MG PO TID (Reported) Pantoprazole Sodium (Pantoprazole Sodium) 40 Mg Tab 40 MG PO DAILY (Reported) Paroxetine (Paroxetine HCl) 40 Mg Tab 40 MG PO DAILY (Reported) Pregabalin (Lyrica) 50 Mg Cap 50 MG PO BID (Reported) Warfarin Sod (Coumadin) 2 Mg Tab 2 MG PO 1XWK (Reported) QPM: FRIDAY Warfarin Sod (Warfarin Sodium) 1 Mg Tab 1 MG PO 6XWK (Reported) QPM: SUN, MON, TUES, THURS, FRI, SAT Zinc Sulfate (Zinc Sulfate) 220 Mg Tab 220 MG PO BID (Reported) Scheduled PRN Acetaminophen (Acetaminophen) 325 Mg Tab 650 MG PO Q4H PRN PRN PAIN / FEVER ( Reported) Albuterol Sulfate (Albuterol Sulfate) 2.5 Mg/0.5 Ml Neb 2.5 MG INH Q4H PRN PRN SHORTNESS OF BREATH (Reported) Aluminum/Magnesium/Simeth (Mylanta 200-200-20 mg/5Ml) 1 Irene Irene 30 ML PO Q4H PRN PRN GAS PAIN (Reported) Metoclopramide HCl (Metoclopramide HCl) 5 Mg Tab 5 MG PO QID PRN PRN NAUSEA ( Reported) Milk Of Magnesia (Milk of Magnesia) 1,200 Mg/15 Ml Irene 30 ML PO DAILY PRN PRN CONSTIPATION (Reported) Oxycodone Hcl (Oxycodone HCl) 15 Mg Tab 15 MG PO Q6H PRN PRN SEVERE PAIN (PS 8- 10) (Reported) Allergies Coded Allergies: Bupropion (Unverified Adverse Reaction, Mild, AGITATION, INCREASED DEPRESSION, 12/20/12) Fluoxetine (Unverified Adverse Reaction, Mild, DEPRESSION, 12/20/12) Hydromorphone (Verified Adverse Reaction, Mild, HYPOGLYCEMIA, 12/20/12) Mirtazapine (Unverified Adverse Reaction, Mild, NIGHTMARES, 12/20/12) Oxymorphone (Verified Adverse Reaction, Mild, N/V, 12/20/12) Pregabalin (Unverified Adverse Reaction, Mild, INCONTINENCE, 12/20/12) Sertraline (Unverified Adverse Reaction, Mild, DIARRHEA,INCREASED DEPRESSION, 12/20/12) Past Medical History Medical History Lumbar spondylosis with Lumbosacral joint disc disease COPD GERD Chronic depression and anxiety MA 08/2014 Disseminated candidiasis Pseudomonoas osteomyelitis of sacrum L4-S1 spinal stenosis 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 Bilateral lower extremity compartment syndrome s/p fasciotomy Cholecystitis s/p cholecystectomy Anemia Enterocutaneous fistula Gastroparesis Surgical History Anteriro L4-L5 discectomy Tracheostomy Aortobifemoral bypass graft Family History Family History Non-contributory Social History Social History - Denies the use of alcohol, tobacco or illicit drugs - Denies recent travel or sick contacts - [place] - Occupation; Worked at [employer] Review of Symptoms Other systems Constitutional: Denies weight loss, change in appetite, or recent trauma Eyes: No visual changes or eye pain Ears, Nose, Throat: Denies nose bleeds, or difficulty swallowing Cardiovascular: Denies chest pain, sweating, or orthopnea Respiratory: Denies cough, wheezing, or shortness of breath GI: Positive nausea, vomiting, abdominal pain, No diarrhea or constipation : Denies pain with urination or frequency Musculoskeletal: Denies joint pain or swelling Neuro / Psych: Denies muscle weakness or sensory loss Skin: No skin rashes noted All other review of systems negative; otherwise stated in history of present illness Vital Signs - Vitals: BP 153/100, HR 108, RR 19, Sat 94%RA, Temp 98.5F - General: Lying in bed, No acute distress, Speaking in full sentences, AAOx3 - HEENT: NC, AT, PERRLA, EOMI - CVS: RRR, +S1S2, - Lungs: Fair air entry bilaterally, Clear to auscultation, No wheezing / rales / rhonchi - Abdomen: Soft, Non-distended, Mild diffuse tenderness, + Bowel sounds x 4, + Ostomy, + Colostomy - Extremities: + PPx4, No lower extremity edema, No calf tenderness, s/p Fasciotomy scars - Neuro: No focal motor or sensory deficit - Skin: No visible rashes Laboratory Data Labs 24H Laboratory Tests 2 10/15/16 12:20: Aspartate Amino Transf (AST/SGOT) 51H, Alanine Aminotransferase (ALT/SGPT) 63, Alkaline Phosphatase 184H, Total Bilirubin 1.0#, Direct Bilirubin 0.3H, Albumin 3.5, Albumin/Globulin Ratio 0.64L, Anion Gap 12, White Blood Count 14.8H, Red Blood Count 4.95, Hemoglobin 14.5, Hematocrit 45.4, Mean Corpuscular Volume 91.6 , Mean Corpuscular Hemoglobin 29.4, Mean Corpuscular Hemoglobin Concent 32.0, Red Cell Distribution Width 14.8H, Platelet Count 334, Neutrophils (%) (Auto) 85.8H, Lymphocytes (%) (Auto) 8.0L, Monocytes (%) (Auto) 4.1, Eosinophils (%) ( Auto) 0.6, Basophils (%) (Auto) 0.2, Neutrophils # (Auto) 12.7H, Lymphocytes # ( Auto) 1.2L, Monocytes # (Auto) 0.6, Eosinophils # (Auto) 0.1, Basophils # (Auto ) 0.0, Calcium Level 9.8, Glomerular Filtration Rate > 60.0, Large Unclassified Cells # 0.2, Large Unclassified Cells % 1.2, Lipase 73, Prothromb Time International Ratio 1.54, Prothrombin Time 18.6H, Total Protein 9.0H CBC/BMP Laboratory Tests 10/15/16 12:20 Red Blood Count 4.95, Mean Corpuscular Volume 91.6, Mean Corpuscular Hemoglobin 29.4, Mean Corpuscular Hemoglobin Concent 32.0, Red Cell Distribution Width 14.8 H, Neutrophils (%) (Auto) 85.8 H, Lymphocytes (%) (Auto) 8.0 L, Monocytes ( %) (Auto) 4.1, Eosinophils (%) (Auto) 0.6, Basophils (%) (Auto) 0.2, Neutrophils # (Auto) 12.7 H, Lymphocytes # (Auto) 1.2 L, Monocytes # (Auto) 0.6 , Eosinophils # (Auto) 0.1, Basophils # (Auto) 0.0 Microbiology Microbiology 10/15/16 Blood Culture, Received Pending 10/15/16 Influenza Virus Type A Antigen - Final, Complete 10/15/16 Influenza Virus Type B Antigen - Final, Complete Plan / VTE VTE Prophylaxis Ordered?: Yes Plan Plan Abdominal pain associated with nausea and vomiting likely 2/2 small bowel obstruction - Occurred over 1 day, multiple episodes of vomiting - Physical reveals diffuse abdominal pain - CT abdomen 10/15: partial small bowel obstruction pattern - Has been seen and evaluated by surgery - Will continue with conservative approach; will keep NPO, NGT to intermittent suction, anti-emetics and pain control Leukocytosis possibly 2/2 reactive etiology, possibly 2/2 infectious - will check blood cultures and urinalysis / urine culture - CXR 10/15: negative chest s/p NGT placement - Will start ciprofloxacin and flagyl Lumbar spondylosis with Lumbosacral joint disc disease COPD GERD Chronic depression and anxiety MA 08/2014 Disseminated candidiasis Pseudomonoas osteomyelitis of sacrum L4-S1 spinal stenosis 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
[2016-10-15] MEDS: AMITRIPTYLINE 25 MG TAB PO SCH (21:30)
[2016-10-15] MEDS: DOXYCYCLINE HYCLATE 100 MG TAB PO SCH (21:30)
[2016-10-15] MEDS: oxyCODONE 15 MG CR TAB PO SCH (21:31)
[2016-10-15] MEDS: GABAPENTIN 400 MG CAP PO SCH (21:31)
[2016-10-15] MEDS: CIPROFLOXACIN 400 MG in APPROPRIATE DILUENT 1 EA IV SCH (21:31)
[2016-10-15] MEDS: WARFARIN SOD 2 MG TAB PO SCH (21:34)
[2016-10-15] MEDS: ZINC SULFATE 220 MG CAP PO SCH (21:50)
[2016-10-15 22:00] VITALS: BP 122/90
[2016-10-15] MEDS: metroNIDAZOLE 500 MG in APPROPRIATE DILUENT 1 EA IV SCH (23:10)
[2016-10-15] MEDS: OCTREOTIDE ACETATE 100 MCG/ML VIAL (J2354) IV SCH (23:10)
[2016-10-15] MEDS: MORPHINE 2 MG/ML 1ML SYRINGE IV PRN (23:11)
[2016-10-15] MEDS: ONDANSETRON 4MG/2ML VIAL (J2405) IV PRN (23:23)
[2016-10-16] VITALS (7 sets, daily range): BP systolic 125–148; BP diastolic 80–89
[2016-10-16] MEDS: NYSTATIN 100,000 UNITS/GM TOPICAL PWD 15 GM TOP SCH ×3 (03:46→21:54)
[2016-10-16 06:24] LABS: BASO % 0.2 % (0.0-1.0); EOS % 0.4 % (0.0-3.0); LARGE UNSTAINED CELL # 0.2 K/mm3 (0.0-0.4); LARGE UNSTAINED CELL % 1.4 % (0.0-4.0); LYMPH # 1.1 K/mm3 (1.5-4.5); MEAN CORPUSCULAR HEMOGLOBIN 29.1 pg (27.0-33.0); MEAN CORPUSCULAR HGB CONC 31.1 g/dl (32.0-36.5); MEAN CORPUSCULAR VOLUME 93.6 fl (80.0-96.0); MONO # 0.7 K/mm3 (0.0-0.8); MONO % 5.1 % (0.0-5.0); NEUTROPHILS # 11.7 K/mm3 (1.8-7.7); PLATELET COUNT, AUTOMATED 308 k/mm3 (150-450); RED CELL DISTRIBUTION WIDTH 14.9 % (11.5-14.5); WHITE BLOOD COUNT 13.8 K/mm3 (4.0-10.0)
[2016-10-16 06:33] LABS: INR 1.53
[2016-10-16 06:41] LABS: ALBUMIN 3.2 GM/DL (3.2-5.2); ALBUMIN/GLOBULIN RATIO 0.67 (1.00-1.93); BILIRUBIN,TOTAL 0.9 MG/DL (0.2-1.0); CALCIUM LEVEL 8.9 MG/DL (8.8-10.2); CREATININE FOR GFR 1.41 MG/DL (0.70-1.30); GLOMERULAR FILTRATION RATE 54.6 (>49); MAGNESIUM LEVEL 1.9 MG/DL (1.8-2.4)
[2016-10-16] MEDS: metroNIDAZOLE 500 MG in APPROPRIATE DILUENT 1 EA IV SCH ×2 (06:45→13:58)
[2016-10-16] MEDS: OCTREOTIDE ACETATE 100 MCG/ML VIAL (J2354) IV SCH ×3 (06:45→21:54)
[2016-10-16] MEDS: MORPHINE 2 MG/ML 1ML SYRINGE IV PRN ×3 (08:56→20:27)
--- NOTE | 2016-10-16 10:19 | REP ---
ACUTE ABDOMINAL SERIES: 10/16/2016. Clinical history: Small bowel obstruction. Comparison portable chest 10/15/2016, CT abdomen and pelvis 10/15/2016. AP supine chest: There is a nasogastric tube coursing through the mediastinum into the left upper quadrant, tip off the field but well into the stomach. There is no cardiomegaly or vascular redistribution. Aorta and airway were normal. Slight elevation of right diaphragm. Lung vines adequately inflated and without infiltrate. There are axillary clips on the right. Flat and upright abdomen: Supine and cross-table lateral views are provided. There is a ostomy over the right midabdomen above the iliac crest. Stool and gas are seen in loops of colon with less gaseous distension and fewer loops dilated than on the winder helper CT image from yesterday. Right upper quadrant clips from prior cholecystectomy. There are multiple surgical clips paramedian overlying the L4-5 level. Scattered stool and gas in the right colon. Cross-table lateral view shows air-fluid levels in those dilated small bowel loops without definite free air. Impression: 1. NG tube into the lateral margin fundus of the stomach with dilated small bowel loops concentrated in central mid abdomen although fewer in number and slightly less distended than on the winder helper CT image from yesterday. Overall slightly lesser degree of small bowel obstruction. 2. Ostomy in the right upper quadrant above the iliac crest with stool in the right colon into the ostomy. 3. Degenerative changes of the spine and hips. 4. No acute cardiopulmonary change. Signed by Juan Molina MD 10/16/2016 10:49 A
[2016-10-16] MEDS: DOXYCYCLINE HYCLATE 100 MG TAB PO SCH ×2 (10:36→21:54)
[2016-10-16] MEDS: FLUCONAZOLE 100 MG TAB PO SCH (10:37)
[2016-10-16] MEDS: FERROUS SULFATE 325MG TAB PO SCH (10:37)
[2016-10-16] MEDS: GABAPENTIN 400 MG CAP PO SCH ×3 (10:37→21:54)
[2016-10-16] MEDS: OSELTAMIVIR PHOSPHATE 75 MG CAP (TAMIFLU) PO SCH ×2 (10:37→21:54)
[2016-10-16] MEDS: ZINC SULFATE 220 MG CAP PO SCH ×2 (10:38→21:54)
[2016-10-16] MEDS: MULTIVITAMINS/MINERALS THERAP 1 TAB PO SCH (10:38)
[2016-10-16] MEDS: PARoxetine 20 MG TAB PO SCH (10:38)
[2016-10-16] MEDS: oxyCODONE 15 MG CR TAB PO SCH ×3 (10:39→21:54)
[2016-10-16] MEDS: PANTOPRAZOLE 40MG INJ (PROTONIX) (C9113) IV SCH (10:39)
[2016-10-16] MEDS: CIPROFLOXACIN 400 MG in APPROPRIATE DILUENT 1 EA IV SCH (10:40)
[2016-10-16] MEDS: MOM 30ML SUSPENSION UDC PO PRN (13:58)
[2016-10-16] MEDS: ACETAMINOPHEN 325 MG TAB PO PRN (15:50)
[2016-10-16] MEDS: NS 1,000 ML IV SCH (16:04)
[2016-10-16] MEDS: WARFARIN SOD 2 MG TAB PO SCH (17:53)
--- NOTE | 2016-10-16 19:56 | IPN ---
DATE: 10/16/2016 SUBJECTIVE: This is a 61-year-old male who is seen and examined at the bedside. Was admitted overnight for nausea and bilious vomiting with abdominal distention. Was found to have small bowel obstruction. Overnight the patient was made nothing by mouth (npo) and had NG tube placed. Continues to request for drinking water and eating despite knowing that there is a blockage in his abdomen. Denies any chest pain, shortness of breath, fevers, chills. OBJECTIVE: VITAL SIGNS: Blood pressure 140/80, heart rate 102, improved from admission which was 120. Temperature 96.3, respiration rate 16, pulse oximetry 90% on room air. Intake and output last 24 hours 1330 and 320. Had three incontinent voids. GENERAL: The patient was lying in bed, comfortable. No acute distress. Alert, awake, oriented times three. Cooperative. Tired appearing. HEENT: Normocephalic, atraumatic. Moist oral mucosa. Neck supple. Trachea midline. Difficult to appreciate jugular venous distention (JVD) secondary to neck size. CHEST: Symmetric chest rise. No accessory muscle use. Breath sounds were diminished, but clear bilaterally. HEART: Mildly tachycardic, but S1, S2 are normal. ABDOMEN: Protuberant with ostomy in place. Is draining liquid yellow stool. Currently has two ostomy bags in abdomen one on the right and one midline. There are erythematous changes by his ostomy site. It is not tender to palpation. EXTREMITIES: No pedal edema, though his feet are very cold to touch. His sensory is, however, intact. Difficult to appreciate pedal pulses. NEUROLOGICAL: He is alert, awake, oriented times three. No focal deficits appreciated. INTEGUMENT: He has multiple wounds on his dorsal surface of his feet and also his abdomen. LABORATORY DATA: WBC 13.8, improved from yesterday 14.8, hemoglobin 13.7, hematocrit 44.1, platelets 308, neutrophils 85. Sodium 140, potassium 4, chloride 105, carbon dioxide 25, BUN 19, creatinine 1.41. Calcium 8.9, magnesium 1.9, AST 55, ALT 56, alkaline phosphatase 162, mildly improved compared to yesterday. Lipase 73 on admission. PT 18.5, INR 1.53. Blood cultures pending. CT abdomen and pelvis upon admission showed dilated small bowel loops adherent to anterior abdominal wall with extensive postoperative deformity and evidence of anterior wall cutaneous fistula, possible small bowel obstruction pattern. Other postoperative changes include cholecystectomy, aortic resection, axillobifemoral bypass graft as well as lumbar laminectomy fusion, renal cyst seen, fatty infiltration of the liver. Abdominal x-ray this morning showed NG tube anterolateral margin fundus of the stomach with dilated small bowel loops concentrated in central mid abdomen, although few in number and less distended than CT and lesser degree of small bowel obstruction ostomy in right upper quadrant above iliac crest, with stool in right colon and ostomy. Degenerative changes. No acute cardiopulmonary change. IMPRESSION/PLAN: Mr. Dolan is an unfortunate 61-year-old male who has a history of back pain who underwent an elective lumbar spinal surgery in July 2014 through transabdominal approach and subsequently developed perforation of bowel and laceration of right iliac arteries, and also abdominal aortic rupture, developed myocardial infarction (ME) post surgery. Subsequently underwent multiple abdominal surgeries, including ostomy bag placement, developed enterocutaneous fistula who presented with nausea, vomiting and found to have possible small bowel obstruction. 1. Small bowel obstruction. NG tube is placed. Since admission, appears to have 300 mL of green-brown content in his canister. Currently being followed by Dr. Morse. At this time it is recommended that we continue with nothing by mouth and IV hydration. The patient was also started on octreotide to help decrease ostomy output. Greatly appreciated Dr. Morse's assistance. 2. Acute kidney injury (SHAYY). Likely secondary to dehydration from vomiting and ostomy output. Continue IV fluid hydration. 3. 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 4. Leukocytosis. Could be secondary to stress response versus infectious etiology. CT abdomen and pelvis does not show any evidence of colitis. He is on chronic antibiotics and is at risk for Clostridium (C.) difficile. If there is no finding for colitis, we will discontinue ciprofloxacin and flagyl. 5. 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 The patient is on chronic suppressant therapy with fluconazole and doxycycline. The patient reportedly sees infectious disease specialist, Dr. Naty Cary in [place]. 6. Congestive heart failure (CHF), diastolic. Echocardiogram from August 2015 showed ejection fraction (EF) 50 to 55%. Continue to monitor while he is recieving IV fluid. 7. Obstructive sleep apnea. Reportedly is intolerant of CPAP. 8. Abdominal aortic aneurysm repair due to complications from surgery. He is on Coumadin chronically, but the reason for this is somewhat unclear. 9. Influenza B. Have started him on Tamiflu. 10. Chronic obstructive pulmonary disease (COPD). Continue Proventil as needed (p.r.n.). 11. Iron deficiency anemia. Continue ferrous sulfate 325 mg by mouth daily. 12. Gastroesophageal reflux disease (GERD). Continue Protonix 40 mg daily. 13. Stage IV decubitus ulcer. Present on admission. Sees Dr. Silva on an outpatient basis. 14. Depression. Continue home dose Paxil. 15. 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 Continue gabapentin 400 mg three times a day 16. Chronic pain. Continue pain medication with hold for sedation. 17. Deep venous thrombosis (DVT) prophylaxis. Sequential compression devices (SCDs), thromboembolism deterrents (TEDs). He is on Coumadin. My preceptor for this patient encounter was Dr. Francis Sunshine. The preceptor was physically present in the building during the encounter and was fully available. As needed, all aspects of the patient interview, examination, medical decision making process, and medical care plan development were reviewed and approved by the preceptor. The preceptor is aware and concurs with the plan as stated in the body of this note and will attest to such by his/her cosignature. MARIAELENA
[2016-10-16] MEDS: AMITRIPTYLINE 25 MG TAB PO SCH (21:54)
--- NOTE | 2016-10-16 23:08 | ECGEPIP ---
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
[2016-10-17] VITALS (7 sets, daily range): BP systolic 112–145; BP diastolic 80–95
[2016-10-17] MEDS: OCTREOTIDE ACETATE 100 MCG/ML VIAL (J2354) IV SCH ×3 (05:16→22:02)
[2016-10-17] MEDS: MOM 30ML SUSPENSION UDC PO PRN (05:16)
[2016-10-17] MEDS: NS 1,000 ML IV SCH (05:20)
[2016-10-17 08:54] LABS: BASO % 0.3 % (0.0-1.0); EOS # 0.2 K/mm3 (0.0-0.50); EOS % 2.2 % (0.0-3.0); LARGE UNSTAINED CELL # 0.1 K/mm3 (0.0-0.4); LARGE UNSTAINED CELL % 1.2 % (0.0-4.0); LYMPH # 1.1 K/mm3 (1.5-4.5); LYMPH % 8.8 % (24.0-44.0); MEAN CORPUSCULAR HEMOGLOBIN 29.3 pg (27.0-33.0); MEAN CORPUSCULAR HGB CONC 30.7 g/dl (32.0-36.5); MEAN CORPUSCULAR VOLUME 95.2 fl (80.0-96.0); MONO # 0.7 K/mm3 (0.0-0.8); MONO % 5.9 % (0.0-5.0); NEUTROPHILS % 81.6 % (36.0-66.0); PLATELET COUNT, AUTOMATED 260 k/mm3 (150-450); WHITE BLOOD COUNT 11.1 K/mm3 (4.0-10.0)
[2016-10-17 08:54] LABS: INR 1.75
[2016-10-17] MEDS: D5W/0.9% SODIUM CHLORIDE 1,000 ML IV SCH ×3 (09:07→20:05)
[2016-10-17] MEDS: PANTOPRAZOLE 40MG INJ (PROTONIX) (C9113) IV SCH (09:07)
[2016-10-17] MEDS: MORPHINE 2 MG/ML 1ML SYRINGE IV PRN ×3 (09:09→17:39)
[2016-10-17] MEDS: PARoxetine 20 MG TAB PO SCH (09:09)
[2016-10-17 09:10] LABS: ALBUMIN 2.8 GM/DL (3.2-5.2); ALBUMIN/GLOBULIN RATIO 0.62 (1.00-1.93); ALKALINE PHOSPHATASE 152 U/L (45-117); ALT/SGPT 51 U/L (12-78); ANION GAP 9 MEQ/L (8-16); AST/SGOT 58 U/L (15-37); BILIRUBIN,TOTAL 0.7 MG/DL (0.2-1.0); BLOOD UREA NITROGEN 18 MG/DL (7-18); CALCIUM LEVEL 8.8 MG/DL (8.8-10.2); CARBON DIOXIDE LEVEL 27 MEQ/L (21-32); CHLORIDE LEVEL 109 MEQ/L (98-107); CREATININE FOR GFR 1.25 MG/DL (0.70-1.30); GLOMERULAR FILTRATION RATE > 60.0 (>49); GLUCOSE, FASTING 127 MG/DL (80-110); MAGNESIUM LEVEL 2.4 MG/DL (1.8-2.4); POTASSIUM SERUM 4.4 MEQ/L (3.5-5.1); SODIUM LEVEL 145 MEQ/L (136-145); TOTAL PROTEIN 7.3 GM/DL (6.4-8.2)
[2016-10-17] MEDS: MULTIVITAMINS/MINERALS THERAP 1 TAB PO SCH (09:10)
[2016-10-17] MEDS: FLUCONAZOLE 100 MG TAB PO SCH (09:10)
[2016-10-17] MEDS: DOXYCYCLINE HYCLATE 100 MG TAB PO SCH ×2 (09:10→22:00)
[2016-10-17] MEDS: FERROUS SULFATE 325MG TAB PO SCH (09:11)
[2016-10-17] MEDS: GABAPENTIN 400 MG CAP PO SCH ×3 (09:11→22:01)
[2016-10-17] MEDS: ZINC SULFATE 220 MG CAP PO SCH ×2 (09:11→21:59)
[2016-10-17] MEDS: OSELTAMIVIR PHOSPHATE 75 MG CAP (TAMIFLU) PO SCH ×2 (09:11→21:59)
[2016-10-17] MEDS: oxyCODONE 15 MG CR TAB PO SCH ×3 (09:12→22:01)
[2016-10-17] MEDS: NYSTATIN 100,000 UNITS/GM TOPICAL PWD 15 GM TOP SCH ×2 (09:13→22:02)
--- NOTE | 2016-10-17 15:09 | REP ---
ABDOMINAL SERIES: Six views presented. HISTORY: Small bowel obstruction. FINDINGS: Supine chest radiograph shows a nasogastric tube entering the left upper quadrant. Right hemidiaphragm remains somewhat elevated. There is a ill-defined nodular opacity approximately a centimeter in diameter in the left upper lobe. This is a granulomatous nodule which is visible on chest CT study in August 2010. There are clips in the right subclavicular soft tissues. Lung vines are otherwise clear. Heart is not enlarged. There is a left apical pleural thickening unchanged from the previous study October 15, 2016. Supine and cross-table lateral views of the abdomen demonstrate dilated small bowel loops in the left mid abdomen displaying air-fluid levels on the lateral radiograph. There is no visible free intraperitoneal air. The small bowel loops are somewhat more dilated than on the October 16, 2016 study. There is some stool near the enterostomy in the right lower quadrant again noted. Surgical clips are seen in the central abdomen. IMPRESSION: Small bowel obstruction pattern persists. The small bowel loops are somewhat more dilated than on the October 16, 2016 study. Signed by Antolin Uribe MD 10/17/2016 03:59 P
[2016-10-17] MEDS: WARFARIN SOD 2 MG TAB PO SCH (16:40)
--- NOTE | 2016-10-17 18:46 | IPN ---
DATE: 10/17/2016 SUBJECTIVE: This is a 61-year-old male who was seen and examined at bedside. Overnight the patient was continued with nasogastric (NG) tube placement. He feels a lot better with his abdominal pain today compared to yesterday. No chest pain, shortness of breath, fevers, chills. States that he is unable to tell when he has a urinary symptom as he has chronic urinary retention, unable to feel anything after his complications from his surgery 2 years ago. He does report history of urinary retention. Otherwise, overall feels a lot better today. OBJECTIVE: VITAL SIGNS: Blood pressure 134/80, heart rate 107, respiration rate 16, temperature 95.6, pulse oximetry 89%, which then improved to 91% on room air. Intake and output last 24 hours: 1855 and 470. Gastric drainage had approximately 425 mL out. GENERAL: Patient is sitting in bed, comfortable, in no acute distress. Alert, awake, oriented times three. Pleasant and more comfortable today compared to yesterday. Friend at bedside. HEENT: Normocephalic, atraumatic. Dry oral mucosa. NG tube is in place draining green contents. NECK: Supple, trachea midline, difficult to appreciate jugular venous distention (JVD) secondary to enlarged neck size. CHEST: Symmetric chest rise, no accessory muscle use. Breath sounds diminished but clear bilaterally. HEART: Mildly tachycardia, distant sounding, but S1, S2 sounded normal. ABDOMEN: Protuberant with ostomy in place with yellow liquid stool. Has two ostomy bags. It is mildly erythematous by his ostomy site. Bowel sounds are present. Soft, nontender. No guarding, no rebound. EXTREMITIES: No pedal edema. Feet are still very cold to touch but sensory is intact. He is wearing offloading boots. Had difficulty appreciating his pedal pulses which reportedly is chronic. LABORATORY DATA: WBC 11.1, improved from yesterday at 13.8, hemoglobin 12.9, hematocrit 42.1, platelets 260. Sodium 145, potassium 4.4, chloride 109, carbon dioxide 27, BUN 18 and creatinine 1.25, improved from yesterday at 19 and 1.41, glucose 127, INR 1.75. Blood cultures are negative after 24 hours. IMPRESSION AND PLAN: Mr. Dolan is a pleasant, but unfortunate, 61-year-old male with an extensive past medical history with multiple complications who presented with small bowel obstruction. 1. Small bowel obstruction. Continues to have drainage from his canister. He remains nothing by mouth with nasogastric (NG) tube placement. Greatly appreciate Dr. Morse's assistance. 2. Acute kidney injury (SHAYY), resolving. Continue fluid hydration. 3. Enterocutaneous fistula secondary to extensive complications from his previous surgery. 4. Leukocytosis, improving. We discontinued his Flagyl and ciprofloxacin yesterday as he had no active evidence of infection and he is at risk for Clostridium (C) difficile due to his chronic doxycycline use for his previous infections. 5. 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 He is on chronic fluconazole and doxycycline. 6. Congestive heart failure (CHF). Compensated. Continue fluid hydration. 7. Obstructive sleep apnea. Patient was not tolerant of continuous positive airway pressure (CPAP) in the past. 8. Abdominal aortic aneurysm status post repair. Per patient, he is on Coumadin to prevent clot formation from surgery. 9. Influenza. Currently on Tamiflu. 10. Chronic obstructive pulmonary disease (COPD). Continue nebulizer treatment. 11. Iron deficiency anemia. Continue ferrous sulfate 325 mg by mouth daily. 12. Gastroesophageal reflux disease (GERD). Continue Protonix 20 mg daily. 13. Stage IV decubitus ulcer present on admission. Follows with wound care outpatient. 14. Depression. Continue current dose of Paxil. 15. 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 Continue gabapentin 400 mg three times a day. 16. Chronic pain. Continue home medications for pain control. 17. History of urinary retention. Should he develop recurrence of this, he might require Burnett insertion. 18. Deep venous thrombosis (DVT) prophylaxis. Sequential compression device (SCD), thromboembolism deterrents (TEDs), and Coumadin. My preceptor for this patient encounter was Dr. Francis Sunshine. The preceptor was physically present in the building during the encounter and was fully available. As needed, all aspects of the patient interview, examination, medical decision making process, and medical care plan development were reviewed and approved by the preceptor. The preceptor is aware and concurs with the plan as stated in the body of this note and will attest to such by his cosignature. MARIAELENA
--- NOTE | 2016-10-17 20:45 | EDDOCDS ---
Nurse's Notes [facility] Name: Nitesh Dolan Age: 61 yrs Sex: Male : 1955 Arrival Date: 10/15/2016 Time: 11:48 Bed 19 Private MD: Tonia Diagnosis: Other intestinal obstruction Presentation: 10/15 11:51 Presenting complaint: Patient states: vomiting x 2 days - ileostomy in place and [facility] care home concerned for decreased output from ostomy. Adult Sepsis Screening: The patient does not have new or worsening altered mentation. Patient's respiratory rate is less than 22. Systolic blood pressure is greater than 100. Patient has a qSOFA score of 0- Negative Sepsis Screen. Suicide/Homicide risk assessment- the patient denies having any suicidal and/or homicidal ideations and does not present with any other emotional, behavioral or mental health complaints. Status: Patient is not a sales service professional or dependent. Transition of care: patient was not received from another setting of care. 11:51 Acuity: ADA Level 3 [facility] 11:51 Method Of Arrival: Ambulance [facility] Triage Assessment: 12:07 General: Appears unkempt, Behavior is appropriate for age, cooperative. Pain: Location: [facility] abdomen Pain currently is 2 out of 10 on a pain scale. HIV screening NA for this visit Offered previously. The patient is triaged at the bedside. See Assessment in Nurses Notes section of ED record. Neurological: Level of Consciousness is awake, alert, Oriented to person, place, time. Cardiovascular: Capillary refill < 3 seconds Rhythm is sinus tachycardia No ectopy. Respiratory: Airway is patent Respiratory effort is even, unlabored. GI: Abdomen is non- distended obese, Ileostomy site is reddened. Ostomy appliance is intact. small amount of formed stool in appliance other large abdominal fistula with opening to skin and ostomy appliance in place draining yellow colored stool like drainage. tissue reddened and excoriated. Derm: poorly healing incision sites to bilateral lower medial calves. - no drainage, open to air. bilateral lower extremities dusky. skin p/w/d other than noted. Historical: - Allergies: Ambien; Hydromorphone; jenexetine; Lyrica; oxymorphone; Prozac; Remeron; Wellbutrin; Zoloft; - Home Meds: 1. Coumadin 1 mg Oral tab 1 tab SMTRFS 2. ferrous sulfate 325 mg (65 mg iron) Oral cpER twice a day 3. amitriptyline 25 mg Oral tab 1 tab once daily 4. gabapentin 600 mg Oral tab daily 5. Coumadin 2 mg Oral tab 1 tab W 6. pregabalin 50 mg oral cap twice a day 7. OxyContin 15 mg Oral TR12 tid 8. Roxicodone 15 mg Oral tab 1 tab every 6 hours 9. Reglan 5 mg Oral tab 1 tab 4 times per day 10. Tylenol 325 mg Oral tab 2 tabs as needed 11. doxycycline hyclate 100 mg Oral cap 1 cap every 12 hours 12. multivitamin Oral tab daily 13. Protonix 40 mg Oral TbEC 1 tab once daily 14. albuterol sulfate 2.5 mg/0.5 mL Inhl nebu every 4 hours as needed 15. paroxetine HCl 40 mg Oral tab 1 tab once daily 16. zinc sulfate 220 mg Oral tab twice a day 17. Fluconazole 400 mg Oral once daily 18. antacid- alum-mag hydroxide-simethicone [phone]/5ml give 30 mls PRN Q4 hours 19. milk of magnesium 2400mg/10ml give 10ml daily PRN 20. Dulcolax (bisacodyl) 10 mg Rectal supp 1 suppository daily PRN 21. 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 No barriers to communication noted, The patient speaks fluent [place], Speaks appropriately for age. - Family history: Not pertinent. - : The pt / caregiver states he / she is on anticoagulants: coumadin. Home medication list is obtained from the facility NOV. - Exposure Risk Screening:: None identified. Screenin:22 Screening information is obtained from the patient. Fall risk: At risk due to pml immobility. Assistance ADL's: requires no assistance with activities of daily living. Abuse/DV Screen: The patient / caregiver reports he/she is: not in a situation that causes fear, pain or injury. Nutritional screening: No deficits noted. Advance Directives: There is no active DNR order. home support is adequate. Assessment: 12:52 GI: Pt is actively vomiting small amounts of green liquid. pml 13:45 General: pt reports abdominal pain increased 8/10 - medicated as indicated on emar. pml continues to vomit small amounts fo green emesis following zofran administration . 14:21 General: pt vomiting contrast. JIG BORE OPERATOR aware - new orders obtained and administered. Per JIG BORE OPERATOR pml if pt unable to tolerate PO than no oral contrast CT. 14:53 General: reports pain is unchanged, 8/10. states no relief with IV morphine. JIG BORE OPERATOR aware, pml resps easy and unlabored, skin p/w/d. continues to vomit small amounts of green emesis, . 15:30 General: Appears uncomfortable, Behavior is cooperative. Pain: Location: right upper ld5 quadrant and left upper quadrant Pain currently is 10 out of 10 on a pain scale. Quality of pain is described as sharp. Neurological: Level of Consciousness is awake, obeys commands. Respiratory: Airway is patent Respiratory effort is even, labored. GI: Abdomen is distended, Bowel sounds present X 4 quads. Abd is tender to palpation in right upper quadrant and left upper quadrant Reports nausea, vomiting. GI: Colostomy site Ostomy appliance is intact. abdominal fistula appliance intact. Derm: wounds in various stages of healing to BLE. 16:00 General: Pt reports decreased pain after Fentanyl administration. Awaiting CT results. ld5 Family members at bedside. Will continue to monitor. 16:36 General: Family member out to report increased pain. Pt laying in bed moaning and ld5 stated "oww it hurts". Pt medicated per orders. Will continue to monitor. 16:50 General: Ostomy appliance removed and small amount of hard stool removed from stoma. ld5 Suppository administered. Will monitor for results. 17:00 General: Possibility of NG tube explained to pt by provider and this RN. Pt states ld5 "well they better be putting me out for this". Support provided to pt. Will continue to monitor. 17:13 General: No new stool in ostomy since suppository administration. Pt reports decreased ld5 pain. Will continue to monitor. 17:15 General: Dr. Morse in to assess pt. ld5 17:30 General: Pt requesting pain medication. Provider aware. No new orders at this time. ld5 17:40 General: Provider in to speak with pt about necessity of NG tube. Pt to be ld5 premedicated. Will continue to monitor. 17:55 General: Pt requesting pain medication again. It was explained to pt that pain may be ld5 alleviated after the NG tube is placed. Pt remains hesitant about tube placement. Hospitalist in to assess pt. 18:45 General: NG tube inserted. 600 ml of bile out immediately. Pt immediately requested ld5 pain medication. This RN explained to pt that NG tube was just placed and the tube needed some time to work. Will continue to monitor. 19:41 General: Appears uncomfortable, Behavior is cooperative. Pain: Location: abdomen Pain mgs currently is 8 out of 10 on a pain scale. Neurological: Level of Consciousness is awake, obeys commands. Cardiovascular: Capillary refill < 3 seconds. Respiratory: Airway is patent Respiratory effort is even, unlabored. GI: Abdomen is distended. Derm: Patient has healing wounds on bilateral lower extremities. Vital Signs: 11:59 BP 135 / 92; Pulse 109; Resp 19; Temp 98.5(O); Pulse Ox 94% on R/A; lr2 12:00 Weight 110.22 kg (R); Height 5 ft. 9 in. (175.26 cm) (R); Pain 2/10; lr2 12:11 Pulse 104 MON; Pulse Ox 93% ; pml 12:11 BP 149 / 101 (auto/); pml 12:26 Pulse 112 MON; Pulse Ox 93% ; pml 12:26 BP 153 / 100 (auto/); pml 12:41 Pulse 108 MON; Pulse Ox 95% ; pml 12:41 BP 158 / 99 (auto/); pml 12:56 Pulse 102 MON; Pulse Ox 94% ; pml 12:56 BP 159 / 97 (auto/); pml 13:11 Pulse 100 MON; Pulse Ox 93% ; pml 13:11 BP 150 / 95 (auto/); pml 13:26 Pulse 106 MON; Pulse Ox 92% ; pml 13:26 BP 156 / 99 (auto/); pml 13:41 Pulse 120 MON; Pulse Ox 95% ; pml 13:41 BP 153 / 94 (auto/); pml 13:56 Pulse 104 MON; Pulse Ox 94% ; pml 13:56 BP 185 / 82 (auto/); pml 14:11 Pulse 114 MON; Pulse Ox 93% ; pml 14:11 BP 163 / 79 (auto/); pml 14:26 BP 169 / 79 (auto/); ld5 14:26 Pulse 102 MON; Pulse Ox 94% ; ld5 14:52 BP 154 / 81 (auto/); ld5 14:52 Pulse 104 MON; Pulse Ox 94% ; ld5 14:56 BP 153 / 86 (auto/); ld5 14:57 Pulse 102 MON; Pulse Ox 95% ; ld5 15:56 BP 158 / 86 (auto/); ld5 15:56 Pulse 100 MON; Pulse Ox 94% ; ld5 16:01 BP 158 / 86; Pulse 104; Resp 20; Pulse Ox 94% on R/A; Pain 6/10; ld5 16:11 BP 164 / 84 (auto/); ld5 16:11 Pulse 110 MON; Pulse Ox 93% ; ld5 16:26 Pulse 104 MON; Pulse Ox 95% ; ld5 16:26 BP 152 / 79 (auto/); ld5 16:41 BP 139 / 75 (auto/); ld5 16:41 Pulse 106 MON; Pulse Ox 93% ; ld5 17:22 Pulse 110 MON; Pulse Ox 94% ; ld5 18:41 BP 149 / 72; Pulse 105; Resp 20; Temp 98; Pulse Ox 94% on R/A; ld5 19:43 BP 143 / 91; Pulse 105; Resp 18; Temp 98.7(TE); Pulse Ox 95% ; mgs 12:00 Body Mass Index 35.88 (110.22 kg, 175.26 cm) lr2 17:22 Pt requesting BP cuff be removed for a period of time due to discomfort to arms ld5 Vitals: 12:07 Log In Time N/A - ambulance arrival. [facility] ED Course: 11:49 Patient visited by Gabriela Lopez Rooming House Operator. lbd 11:49 Tonia is Private Physician. lbd 11:49 Patient moved to Waiting lbd 11:50 Patient moved to 19 lbd 11:52 Triage Initiated pml 12:01 Patient has correct armband on for positive identification. Placed in gown. Bed in low lr2 position. Call light in reach. Side rails up X 1. Side rails up X2. primary substance abuse counselor on. Pulse ox on. NIBP on. 12:02 Patient visited by Nora Campoverde. lr2 12:11 Patient visited by Lashawn Burton RN. pml 12:22 The patient / caregiver is instructed regarding the plan of care and ED course. pml 12:22 Inserted peripheral IV: 18gauge IV in right antecubital area and blood collected. pml Patient tolerated the procedure well. 12:23 Patient visited by Lashawn Burton RN. pml 12:54 Patient visited by Lashawn Burton RN. pml 12:58 Rosales Huerta FNP is [facility]. ke 12:58 Patient visited by Rosales Huerta FNP. ke 12:58 Patient visited by Rosales Huerta FNP. ke 13:29 Patient visited by Rosales Huerta FNP. ke 13:45 Patient visited by Lashawn Burton RN. pml 13:[address] [facility] Payment Agreement was scanned into [employer] and attached to record. lg 14:12 Patient visited by Rosales Huerta FNP. ke 14:22 Patient visited by Lashawn Burton RN. pml 14:54 Patient visited by Lashawn Burton RN. pml 15:26 Patient visited by Rosales Huerta FNP. ke 15:34 PCR was scanned into [employer] and attached to record. gb 15:57 Patient visited by Rosales Huerta FNP. ke 16:01 Patient visited by Nora Dumont,LINA. ld5 16:07 Omid Morse MD is Hospitalizing Provider. ke 16:14 CT ABD & PELVIS: Oral Contrast Only Returned. EDMS 16:36 Patient visited by Nora Dumont,LINA. ld5 17:25 Patient visited by Nora Dumont,RN. ld5 18:08 Patient visited by Nora Dumont,RN. ld5 18:40 NGT inserted 18 Fr. via right nare. Placement verified. Returned bile. to intermittent ld5 suction. 19:20 PORTABLE CHEST X-RAY Returned. EDMS 19:22 Patient visited by Nora Dumont RN. ld5 19:23 Cesar Hoffman,LINA is Primary Nurse. mgs 19:42 No procedures done that require assistance. mgs 10/16 11:33 T-Sheet-- Draft Copy was scanned into [employer] and attached to record. gb Administered Medications: 10/15 13:13 Drug: NS 0.9% 1000 ml [sodium chloride 0.9 % injection solution] Route: IV; Rate: 250 pml mL/hr; Site: right antecubital; 13:13 Drug: Ondansetron 8 mg Route: IVP; Site: right antecubital; pml 13:44 Drug: morphine 4 mg [morphine 4 mg/mL intravenous cartridge (1 mL)] Route: IVP; Site: pml right antecubital; 14:10 Follow up: Response: No significant change. pml 14:20 Drug: Metoclopramide 10 mg [metoclopramide 5 mg/mL injection solution] Route: IV; Rate: pml 40 mg/hr; Infused Over: 15 mins; Site: right antecubital; 15:30 Drug: fentaNYL (PF) 50 mcg [fentanyl (PF) 50 mcg/mL injection solution (1 mL)] Route: ld5 IVP; Site: right antecubital; 16:01 Follow up: BP 158 / 86; Pulse 104 bpm; Resp 20 bpm; Pulse Ox 94% RA; Pain 6/10 Adult; ld5 Response: Confirmed pt not driving.; Pain is decreased 16:25 Drug: fentaNYL (PF) 50 mcg [fentanyl (PF) 50 mcg/mL injection solution (1 mL)] Route: ld5 IVP; Site: right antecubital; 16:40 Drug: Bisacodyl 10 mg [bisacodyl 10 mg rectal suppository (1 supp)] Route: CT; ld5 18:16 Drug: LORazepam 2 mg [lorazepam 2 mg/mL injection solution (1 mL)] Route: IVP; Site: ld5 right antecubital; Order Results: Lab Order: CBC with Diff; SPEC'M 10/15/16 12:20 Test: WHITE BLOOD COUNT; Value: 14.8; Range: 4.0-10.0; Abnormal: Above high normal; Units: K/mm3; Status: F Test: RED BLOOD COUNT; Value: 4.95; Range: 4.30-6.10; Units: M/mm3; Status: F Test: HEMOGLOBIN; Value: 14.5; Range: 14.0-18.0; Units: g/dl; Status: F Test: HEMATOCRIT; Value: 45.4; Range: 42.0-52.0; Units: %; Status: F Test: MEAN CORPUSCULAR VOLUME; Value: 91.6; Range: 80.0-96.0; Units: fl; Status: F Test: MEAN CORPUSCULAR HEMOGLOBIN; Value: 29.4; Range: 27.0-33.0; Units: pg; Status: F Test: MEAN CORPUSCULAR HGB CONC; Value: 32.0; Range: 32.0-36.5; Units: g/dl; Status: F Test: RED CELL DISTRIBUTION WIDTH; Value: 14.8; Range: 11.5-14.5; Abnormal: Above high normal; Units: %; Status: F Test: PLATELET COUNT, AUTOMATED; Value: 334; Range: 150-450; Units: k/mm3; Status: F Test: NEUTROPHILS %; Value: 85.8; Range: 36.0-66.0; Abnormal: Above high normal; Units: %; Status: F Test: LYMPH %; Value: 8.0; Range: 24.0-44.0; Abnormal: Below low normal; Units: %; Status: F Test: MONO %; Value: 4.1; Range: 0.0-5.0; Units: %; Status: F Test: EOS %; Value: 0.6; Range: 0.0-3.0; Units: %; Status: F Test: BASO %; Value: 0.2; Range: 0.0-1.0; Units: %; Status: F Test: LARGE UNSTAINED CELL %; Value: 1.2; Range: 0.0-4.0; Units: %; Status: F Test: NEUTROPHILS #; Value: 12.7; Range: 1.8-7.7; Abnormal: Above high normal; Units: K/mm3; Status: F Test: LYMPH #; Value: 1.2; Range: 1.5-4.5; Abnormal: Below low normal; Units: K/mm3; Status: F Test: MONO #; Value: 0.6; Range: 0.0-0.8; Units: K/mm3; Status: F Test: EOS #; Value: 0.1; Range: 0.0-0.50; Units: K/mm3; Status: F Test: BASO #; Value: 0.0; Range: 0.0-0.2; Units: K/mm3; Status: F Test: LARGE UNSTAINED CELL #; Value: 0.2; Range: 0.0-0.4; Units: K/mm3; Status: F Lab Order: BMP; SPEC'M 10/15/16 12:20 Test: GLUCOSE, FASTING; Value: 142; Range: 80-110; Abnormal: Above high normal; Units: MG/DL; Status: F Test: BLOOD UREA NITROGEN; Value: 16; Range: 7-18; Units: MG/DL; Status: F Test: CREATININE FOR GFR; Value: 1.26; Range: 0.70-1.30; Units: MG/DL; Status: F Test: GLOMERULAR FILTRATION RATE; Value: > 60.0; Range: >49; Status: F Test: SODIUM LEVEL; Value: 137; Range: 136-145; Units: MEQ/L; Status: F Test: POTASSIUM SERUM; Value: 3.7; Range: 3.5-5.1; Units: MEQ/L; Status: F Test: CHLORIDE LEVEL; Value: 99; Range: 98-107; Units: MEQ/L; Status: F Test: CARBON DIOXIDE LEVEL; Value: 26; Range: 21-32; Units: MEQ/L; Status: F Test: ANION GAP; Value: 12; Range: 8-16; Units: MEQ/L; Status: F Test: CALCIUM LEVEL; Value: 9.8; Range: 8.8-10.2; Units: MG/DL; Status: F Test Note: ; Units are mL/min/1.73 m2 Chronic Kidney Disease Staging per NKF: Stage I & II GFR >=60 Normal to Mildly Decreased Stage III GFR 30-59 Moderately Decreased Stage IV GFR 15-29 Severely Decreased Stage V GFR <15 Very Little GFR Left ESRD GFR <15 on LIQUOR COMMISSIONER Lab Order: Liver Profile; SPEC'M 10/15/16 12:20 Test: AST/SGOT; Value: 51; Range: 15-37; Abnormal: Above high normal; Units: U/L; Status: F Test: ALT/SGPT; Value: 63; Range: 12-78; Units: U/L; Status: F Test: ALKALINE PHOSPHATASE; Value: 184; Range: 45-117; Abnormal: Above high normal; Units: U/L; Status: F Test: BILIRUBIN,TOTAL; Value: 1.0; Range: 0.2-1.0; Abnormal: Delta; Units: MG/DL; Status: F Test: BILIRUBIN,DIRECT; Value: 0.3; Range: 0.0-0.2; Abnormal: Above high normal; Units: MG/DL; Status: F Test: TOTAL PROTEIN; Value: 9.0; Range: 6.4-8.2; Abnormal: Above high normal; Units: GM/DL; Status: F Test: ALBUMIN; Value: 3.5; Range: 3.2-5.2; Units: GM/DL; Status: F Test: ALBUMIN/GLOBULIN RATIO; Value: 0.64; Range: 1.00-1.93; Abnormal: Below low normal; Status: F Lab Order: Lipase; SPEC'M 10/15/16 12:20 Test: LIPASE; Value: 73; Range: 73-393; Units: U/L; Status: F Lab Order: -Influenza A&B Rapid Antigen - Nose; SPEC'M 10/15/16 13:32 Test: INFLUENZA A RAPID SCR by ICA; Value: INFLUENZA A RESULTS POSITIVE; Abnormal: Abnormal; Status: F Test: INFLUENZA A RAPID SCR by ICA; Value: Comments:; Status: F Test: INFLUENZA B RAPID SCR by ICA; Value: INFLUENZA B RESULTS NEGATIVE; Status: F Test Note: ; The Influenza test is a direct rapid immunoassay for the qualitative detection of Influenza viral antigen. Cell culture (Viral Culture) testing should be considered to confirm NEGATIVE results and to assist in detecting other viruses that can provide similar clinical symptoms. Please contact the lab within 24 hours ([phone]) if confirmatory testing is desired. Lab Order: PT/INR; SPEC'M 10/15/16 12:20 Test: PROTHROMBIN TIME; Value: 18.6; Range: 12.3-14.5; Abnormal: Above high normal; Units: SECONDS; Status: F Test: INR; Value: 1.54; Status: F Test Note: ; THERAPUTIC HUMAN INR VALUES INDICATIONS NORMAL RANGES PROPHYLAXIS/TREATMENT OF: VENOUS THROMBOSIS 2.0-3.0 PULMONARY EMBOLISM 2.0-3.0 PREVENTION OF SYSTEMIC EMBOLISM FROM: TISSUE HEART VALVES 2.0-3.0 ACUTE MYOCARDIAL INFARCTION 2.0-3.0 VALVULAR HEART DISEASE 2.0-3.0 ATRIAL FIBRILLATION 2.0-3.0 MECHANICAL VALVES(HIGH RISK) 2.5-3.5 RECURRENT MYOCARDIAL INFARCTION 2.5-3.5 Radiology Order: CT ABD & PELVIS: Oral Contrast Only Test: CT ABD & PELVIS: Oral Contrast Only REASON FOR EXAMINATION: r/o obstruction; CT study abdomen and pelvis without IV but with oral contrast:; ; History: Question obstruction.; ; Comparison CT study June 27, 2016.; ; CT findings: Digital scaffold worker radiograph demonstrates dilated central abdominal; bowel loops.; ; The lung bases are essentially clear. There is marked diffuse fatty infiltration; of the liver. This is unchanged. Spleen is unremarkable. No adrenal lesion is; seen on either side. No pancreatic abnormality is seen. The gallbladder is; surgically absent. There are two small stable left renal cysts. The infrarenal; abdominal aorta is resected and there is a right axillobifemoral bypass graft; seen coursing to the groins. There is extensive postoperative change and; deformity of the anterior abdominal wall as previously noted. There is a right; lower quadrant colostomy. The patient appears to be status post left colon; resection and erectile over sewing. There is some stool however in the rectum.; There are multiple dilated small bowel loops in the large ventral hernia with; evidence of dilated small bowel loops adherent to the anterior abdominal wall; with some adjacent scarring and evidence of anterior abdominal wall fistula.; There is an overlying dressing. The adherence and the appearance of fistula are; unchanged but the loops involved are much more dilated than on the June 272015 prior study. There is feces like consistency to the content of some of; these ileal loops in the right side of the ventral hernia. No free air is seen.; No intramural air or definite bowel wall thickening is seen. There is minimal; fullness of the intrarenal collecting system on the right and minimal fullness of; the left ureter is again seen unchanged. Small cysts are noted in the right; kidney as well.; ; Impression:; ; Dilated small bowel loops adherent to the anterior abdominal wall with extensive; postoperative deformity and evidence of a enterocutaneous fistula. Partial small; bowel obstruction pattern. Other postoperative changes include cholecystectomy,; aortic resection and axillobifemoral bypass grafting, as well as lumbar; laminectomy and fusion. Renal cysts are again seen and there is marked fatty; infiltration of the liver.; ; ; Signed by; Antolin Uribe MD 10/15/2016 04:24 P; Radiology Order: PORTABLE CHEST X-RAY Test: PORTABLE CHEST X-RAY REASON FOR EXAMINATION: r/o infiltrate; Portable chest, single AP view, the patient upright:; ; Comparison 02/20/2011.; ; There is a nasogastric tube terminating satisfactorily in the abdominal left; upper quadrant.; ; The lung vines are clear. The cardiac size is normal; ; The orquidea, mediastinum, and bony thorax are unremarkable.; ; Impression:; ; Nasogastric tube. Negative portable chest.; ; ; Signed by; Miguel Ángel Rodgers MD 10/15/2016 07:05 P; Outcome: 16:08 Decision to Hospitalize by Provider. ke 19:42 Discharge Assessment: Patient awake, alert and oriented x 3. No cognitive and/or mgs functional deficits noted. Patient verbalized understanding of disposition instructions. patient administered narcotics - yes. Patient was admitted to the hospital or transferred to another facility. The following High Risk Discharge criteria are identified: None. Admitted to Med/Surg accompanied by tech, via stretcher, with chart. Condition: stable. Property :Personal belongings accompany Pt. 19:43 CT Study completed. mgs 19:44 Patient left the ED. mgs Signatures: Dispatcher [employer] EDMS Gabriela Lopez, Rooming House Operator Unit lbd Soo Pena, Reg Reg gb Carlos Culver, Reg Reg lg Rosales Huerta, COLOR LABORATORY TECHNICIAN COLOR LABORATORY TECHNICIAN Nora Martinez RN RN [id number] Lashawn Burton RN RN pml Sheldon, Matthew,Nora Appiah RN lr2 Chart Complete MTDD
--- NOTE | 2016-10-17 20:45 | EDDOCDS ---
Physician Documentation [facility] Name: Nitesh Dolan Age: 61 yrs Sex: Male : 1955 Arrival Date: 10/15/2016 Time: 11:48 Bed 19 Private MD: Tonia Disposition: 10/15/16 16:08 Hospitalization ordered by Omid Morse for Inpatient Admission. Preliminary diagnosis is Other intestinal obstruction. - Bed requested for 4 [place]. - Status is Inpatient Admission. mgs - Condition is Stable. - Problem is an ongoing problem. - Symptoms are unchanged. Historical: - Allergies: Ambien; Hydromorphone; jenexetine; Lyrica; oxymorphone; Prozac; Remeron; Wellbutrin; Zoloft; - Home Meds: 1. Coumadin 1 mg Oral tab 1 tab SMTRFS 2. ferrous sulfate 325 mg (65 mg iron) Oral cpER twice a day 3. amitriptyline 25 mg Oral tab 1 tab once daily 4. gabapentin 600 mg Oral tab daily 5. Coumadin 2 mg Oral tab 1 tab W 6. pregabalin 50 mg oral cap twice a day 7. OxyContin 15 mg Oral TR12 tid 8. Roxicodone 15 mg Oral tab 1 tab every 6 hours 9. Reglan 5 mg Oral tab 1 tab 4 times per day 10. Tylenol 325 mg Oral tab 2 tabs as needed 11. doxycycline hyclate 100 mg Oral cap 1 cap every 12 hours 12. multivitamin Oral tab daily 13. Protonix 40 mg Oral TbEC 1 tab once daily 14. albuterol sulfate 2.5 mg/0.5 mL Inhl nebu every 4 hours as needed 15. paroxetine HCl 40 mg Oral tab 1 tab once daily 16. zinc sulfate 220 mg Oral tab twice a day 17. Fluconazole 400 mg Oral once daily 18. antacid- alum-mag hydroxide-simethicone 304-277-03ky/5ml give 30 mls PRN Q4 hours 19. milk of magnesium 2400mg/10ml give 10ml daily PRN 20. Dulcolax (bisacodyl) 10 mg Rectal supp 1 suppository daily PRN 21. Enema 19-7 gram/118 mL Rectal enem as needed - PMHx: Anemia; Anxiety; CAD; cardiac arrest (2013); Chronic kidney disease; COPD; Depression; disseminated candidiasis; gastroparesis; GERD; Hiatal Hernia; Intestinal fisula x2 (goes to skin surface); MS; MRSA; Osteoarthritis; rhabdomyolysis; Ruptured aortic valve; sacral decubitus ulcer; sepsis; Sleep Apnea w/o CPAP; Spinal Stenosis; spondylothesis of lumbar spine; Temproary hemodialysis; ESBL; - PSHx: Cholecystectomy; discetomy; Tracheostomy; trach removal; Hernia repair; left elbow; shoulder surgery; vascular surgery; Appendectomy; Colostomy Construction; - Social history: Smoking status: Patient states former smoker of tobacco. No barriers to communication noted, The patient speaks fluent [place], Speaks appropriately for age. - Family history: Not pertinent. - : The pt / caregiver states he / she is on anticoagulants: coumadin. Home medication list is obtained from the facility NOV. - Exposure Risk Screening:: None identified. Vital Signs: 10/15 11:59 BP 135 / 92; Pulse 109; Resp 19; Temp 98.5(O); Pulse Ox 94% on R/A; lr2 12:00 Weight 110.22 kg / 242.99 lbs (R); Height 5 ft. 9 in. (175.26 cm) (R); Pain 2/10; lr2 12:11 Pulse 104 MON; Pulse Ox 93% ; pml 12:11 BP 149 / 101 (auto/); pml 12:26 Pulse 112 MON; Pulse Ox 93% ; pml 12:26 BP 153 / 100 (auto/); pml 12:41 Pulse 108 MON; Pulse Ox 95% ; pml 12:41 BP 158 / 99 (auto/); pml 12:56 Pulse 102 MON; Pulse Ox 94% ; pml 12:56 BP 159 / 97 (auto/); pml 13:11 Pulse 100 MON; Pulse Ox 93% ; pml 13:11 BP 150 / 95 (auto/); pml 13:26 Pulse 106 MON; Pulse Ox 92% ; pml 13:26 BP 156 / 99 (auto/); pml 13:41 Pulse 120 MON; Pulse Ox 95% ; pml 13:41 BP 153 / 94 (auto/); pml 13:56 Pulse 104 MON; Pulse Ox 94% ; pml 13:56 BP 185 / 82 (auto/); pml 14:11 Pulse 114 MON; Pulse Ox 93% ; pml 14:11 BP 163 / 79 (auto/); pml 14:26 BP 169 / 79 (auto/); ld5 14:26 Pulse 102 MON; Pulse Ox 94% ; ld5 14:52 BP 154 / 81 (auto/); ld5 14:52 Pulse 104 MON; Pulse Ox 94% ; ld5 14:56 BP 153 / 86 (auto/); ld5 14:57 Pulse 102 MON; Pulse Ox 95% ; ld5 15:56 BP 158 / 86 (auto/); ld5 15:56 Pulse 100 MON; Pulse Ox 94% ; ld5 16:01 BP 158 / 86; Pulse 104; Resp 20; Pulse Ox 94% on R/A; Pain 6/10; ld5 16:11 BP 164 / 84 (auto/); ld5 16:11 Pulse 110 MON; Pulse Ox 93% ; ld5 16:26 Pulse 104 MON; Pulse Ox 95% ; ld5 16:26 BP 152 / 79 (auto/); ld5 16:41 BP 139 / 75 (auto/); ld5 16:41 Pulse 106 MON; Pulse Ox 93% ; ld5 17:22 Pulse 110 MON; Pulse Ox 94% ; ld5 18:41 BP 149 / 72; Pulse 105; Resp 20; Temp 98; Pulse Ox 94% on R/A; ld5 19:43 BP 143 / 91; Pulse 105; Resp 18; Temp 98.7(TE); Pulse Ox 95% ; mgs 12:00 Body Mass Index 35.88 (110.22 kg, 175.26 cm) lr2 17:22 Pt requesting BP cuff be removed for a period of time due to discomfort to arms ld5 MDM: 12:01 IV Saline Lock ordered. br1 12:02 CBC with Diff Ordered. EDMS 12:02 BMP Ordered. EDMS 12:02 Liver Profile Ordered. EDMS 12:02 Lipase Ordered. EDMS 13:06 NS 0.9% 1000 ml IV at 250 mL/hr continuous ordered. ke 13:06 Ondansetron 8 mg IVP once ordered. ke 13:06 Obtain sample by nasopharyngeal swab ordered. ke 13:07 CT ABD & PELVIS: Oral Contrast Only Ordered. EDMS 13:07 -Influenza A&B Rapid Antigen - Nose Ordered. EDMS 13:07 CBC with Diff Reviewed. ke 13:07 BMP Reviewed. ke 13:07 Liver Profile Reviewed. ke 13:07 Lipase Reviewed. ke 13:16 PT/INR Ordered. EDMS 13:37 morphine 4 mg IVP once ordered. ke 13:37 Financial registration complete. lg 13:49 [facility] Payment Agreement was scanned into [employer] and attached to record. lg 14:01 -Influenza A&B Rapid Antigen - Nose Reviewed. ke 14:01 PT/INR Reviewed. ke 14:12 Metoclopramide 10 mg IV at 40 mg/hr once over 15 mins ordered. ke 15:15 fentaNYL (PF) 50 mcg IVP once ordered. ke 15:34 PCR was scanned into [employer] and attached to record. gb 16:09 Bisacodyl Suppository 10 mg CO once ordered. ke 16:17 fentaNYL (PF) 50 mcg IVP once ordered. ke 17:34 NG/OG Tube 18Fr to L.I.S. with hourly monitoring for placement ordered. ke 17:34 LORazepam 2 mg IVP once ordered. ke 18:15 Admission / Observation Status ordered. EDMS 18:15 NPO DIET ordered. EDMS 18:19 URINALYSIS Ordered. EDMS 18:19 URINE CULTURE Ordered. EDMS 18:19 BLOOD CULTURES Ordered. EDMS 18:20 PORTABLE CHEST X-RAY Ordered. EDMS 18:22 ELECTROCARDIOGRAM ADULT ordered. EDMS 19:34 CBC WITH DIFFERENTIAL Ordered. EDMS 19:34 COMPLETE COMPHRENSIVE METABOLI Ordered. EDMS 19:34 morphine 1 mg IVP once ordered. mgs 19:34 MAGNESIUM LEVEL Ordered. EDMS 19:34 PROTHROMBIN TIME PROFILE\E\INR Ordered. EDMS 02/ 11:33 T-Sheet-- Draft Copy was scanned into [employer] and attached to record. gb Administered Medications: 10/15 13:13 Drug: NS 0.9% 1000 ml [sodium chloride 0.9 % injection solution] Route: IV; Rate: 250 pml mL/hr; Site: right antecubital; 13:13 Drug: Ondansetron 8 mg Route: IVP; Site: right antecubital; pml 13:44 Drug: morphine 4 mg [morphine 4 mg/mL intravenous cartridge (1 mL)] Route: IVP; Site: pml right antecubital; 14:10 Follow up: Response: No significant change. pml 14:20 Drug: Metoclopramide 10 mg [metoclopramide 5 mg/mL injection solution] Route: IV; Rate: pml 40 mg/hr; Infused Over: 15 mins; Site: right antecubital; 15:30 Drug: fentaNYL (PF) 50 mcg [fentanyl (PF) 50 mcg/mL injection solution (1 mL)] Route: ld5 IVP; Site: right antecubital; 16:01 Follow up: BP 158 / 86; Pulse 104 bpm; Resp 20 bpm; Pulse Ox 94% RA; Pain 6/10 Adult; ld5 Response: Confirmed pt not driving.; Pain is decreased 16:25 Drug: fentaNYL (PF) 50 mcg [fentanyl (PF) 50 mcg/mL injection solution (1 mL)] Route: ld5 IVP; Site: right antecubital; 16:40 Drug: Bisacodyl 10 mg [bisacodyl 10 mg rectal suppository (1 supp)] Route: CO; ld5 18:16 Drug: LORazepam 2 mg [lorazepam 2 mg/mL injection solution (1 mL)] Route: IVP; Site: ld5 right antecubital; Signatures: Dispatcher [employer] EDMS Soo Pena, Reg Reg gb Carlos Culver, Reg Reg lg Rosales Huerta, POURED PIPE MAKER POURED PIPE MAKER Tristian Perez MD MD br1 Lashawn Burton RN RN pml Sheldon, Matthew, RN RN Gracy Rhodes RN RN lmg Dickerson, Laura RN ld5 The chart was reviewed and I authenticate all verbal orders and agree with the evaluation and treatment provided.Attachments: 13:49 [facility] Payment Agreement lg 10/16 11:33 T-Sheet-- Draft Copy gb Chart Complete MTDD
--- NOTE | 2016-10-17 20:45 | EDDOCDS ---
Physician Documentation [facility] Name: Nitesh Dolan Age: 61 yrs Sex: Male : 1955 Arrival Date: 10/15/2016 Time: 11:48 Bed 19 Private MD: Tonia Disposition: 10/15/16 16:08 Hospitalization ordered by Omid Morse for Inpatient Admission. Preliminary diagnosis is Other intestinal obstruction. - Bed requested for 4 [place]. - Status is Inpatient Admission. mgs - Condition is Stable. - Problem is an ongoing problem. - Symptoms are unchanged. Historical: - Allergies: Ambien; Hydromorphone; jenexetine; Lyrica; oxymorphone; Prozac; Remeron; Wellbutrin; Zoloft; - Home Meds: 1. Coumadin 1 mg Oral tab 1 tab SMTRFS 2. ferrous sulfate 325 mg (65 mg iron) Oral cpER twice a day 3. amitriptyline 25 mg Oral tab 1 tab once daily 4. gabapentin 600 mg Oral tab daily 5. Coumadin 2 mg Oral tab 1 tab W 6. pregabalin 50 mg oral cap twice a day 7. OxyContin 15 mg Oral TR12 tid 8. Roxicodone 15 mg Oral tab 1 tab every 6 hours 9. Reglan 5 mg Oral tab 1 tab 4 times per day 10. Tylenol 325 mg Oral tab 2 tabs as needed 11. doxycycline hyclate 100 mg Oral cap 1 cap every 12 hours 12. multivitamin Oral tab daily 13. Protonix 40 mg Oral TbEC 1 tab once daily 14. albuterol sulfate 2.5 mg/0.5 mL Inhl nebu every 4 hours as needed 15. paroxetine HCl 40 mg Oral tab 1 tab once daily 16. zinc sulfate 220 mg Oral tab twice a day 17. Fluconazole 400 mg Oral once daily 18. antacid- alum-mag hydroxide-simethicone 143-265-99mn/5ml give 30 mls PRN Q4 hours 19. milk of magnesium 2400mg/10ml give 10ml daily PRN 20. Dulcolax (bisacodyl) 10 mg Rectal supp 1 suppository daily PRN 21. Enema 19-7 gram/118 mL Rectal enem as needed - PMHx: Anemia; Anxiety; CAD; cardiac arrest (2013); Chronic kidney disease; COPD; Depression; disseminated candidiasis; gastroparesis; GERD; Hiatal Hernia; Intestinal fisula x2 (goes to skin surface); ID; MRSA; Osteoarthritis; rhabdomyolysis; Ruptured aortic valve; sacral decubitus ulcer; sepsis; Sleep Apnea w/o CPAP; Spinal Stenosis; spondylothesis of lumbar spine; Temproary hemodialysis; ESBL; - PSHx: Cholecystectomy; discetomy; Tracheostomy; trach removal; Hernia repair; left elbow; shoulder surgery; vascular surgery; Appendectomy; Colostomy Construction; - Social history: Smoking status: Patient states former smoker of tobacco. No barriers to communication noted, The patient speaks fluent [place]ian, Speaks appropriately for age. - Family history: Not pertinent. - : The pt / caregiver states he / she is on anticoagulants: coumadin. Home medication list is obtained from the facility NOV. - Exposure Risk Screening:: None identified. Vital Signs: 10/15 11:59 BP 135 / 92; Pulse 109; Resp 19; Temp 98.5(O); Pulse Ox 94% on R/A; lr2 12:00 Weight 110.22 kg / 242.99 lbs (R); Height 5 ft. 9 in. (175.26 cm) (R); Pain 2/10; lr2 12:11 Pulse 104 MON; Pulse Ox 93% ; pml 12:11 BP 149 / 101 (auto/); pml 12:26 Pulse 112 MON; Pulse Ox 93% ; pml 12:26 BP 153 / 100 (auto/); pml 12:41 Pulse 108 MON; Pulse Ox 95% ; pml 12:41 BP 158 / 99 (auto/); pml 12:56 Pulse 102 MON; Pulse Ox 94% ; pml 12:56 BP 159 / 97 (auto/); pml 13:11 Pulse 100 MON; Pulse Ox 93% ; pml 13:11 BP 150 / 95 (auto/); pml 13:26 Pulse 106 MON; Pulse Ox 92% ; pml 13:26 BP 156 / 99 (auto/); pml 13:41 Pulse 120 MON; Pulse Ox 95% ; pml 13:41 BP 153 / 94 (auto/); pml 13:56 Pulse 104 MON; Pulse Ox 94% ; pml 13:56 BP 185 / 82 (auto/); pml 14:11 Pulse 114 MON; Pulse Ox 93% ; pml 14:11 BP 163 / 79 (auto/); pml 14:26 BP 169 / 79 (auto/); ld5 14:26 Pulse 102 MON; Pulse Ox 94% ; ld5 14:52 BP 154 / 81 (auto/); ld5 14:52 Pulse 104 MON; Pulse Ox 94% ; ld5 14:56 BP 153 / 86 (auto/); ld5 14:57 Pulse 102 MON; Pulse Ox 95% ; ld5 15:56 BP 158 / 86 (auto/); ld5 15:56 Pulse 100 MON; Pulse Ox 94% ; ld5 16:01 BP 158 / 86; Pulse 104; Resp 20; Pulse Ox 94% on R/A; Pain 6/10; ld5 16:11 BP 164 / 84 (auto/); ld5 16:11 Pulse 110 MON; Pulse Ox 93% ; ld5 16:26 Pulse 104 MON; Pulse Ox 95% ; ld5 16:26 BP 152 / 79 (auto/); ld5 16:41 BP 139 / 75 (auto/); ld5 16:41 Pulse 106 MON; Pulse Ox 93% ; ld5 17:22 Pulse 110 MON; Pulse Ox 94% ; ld5 18:41 BP 149 / 72; Pulse 105; Resp 20; Temp 98; Pulse Ox 94% on R/A; ld5 19:43 BP 143 / 91; Pulse 105; Resp 18; Temp 98.7(TE); Pulse Ox 95% ; mgs 12:00 Body Mass Index 35.88 (110.22 kg, 175.26 cm) lr2 17:22 Pt requesting BP cuff be removed for a period of time due to discomfort to arms ld5 MDM: 12:01 IV Saline Lock ordered. br1 12:02 CBC with Diff Ordered. EDMS 12:02 BMP Ordered. EDMS 12:02 Liver Profile Ordered. EDMS 12:02 Lipase Ordered. EDMS 13:06 NS 0.9% 1000 ml IV at 250 mL/hr continuous ordered. ke 13:06 Ondansetron 8 mg IVP once ordered. ke 13:06 Obtain sample by nasopharyngeal swab ordered. ke 13:07 CT ABD & PELVIS: Oral Contrast Only Ordered. EDMS 13:07 -Influenza A&B Rapid Antigen - Nose Ordered. EDMS 13:07 CBC with Diff Reviewed. ke 13:07 BMP Reviewed. ke 13:07 Liver Profile Reviewed. ke 13:07 Lipase Reviewed. ke 13:16 PT/INR Ordered. EDMS 13:37 morphine 4 mg IVP once ordered. ke 13:37 Financial registration complete. lg 13:49 [facility] Payment Agreement was scanned into [employer] and attached to record. lg 14:01 -Influenza A&B Rapid Antigen - Nose Reviewed. ke 14:01 PT/INR Reviewed. ke 14:12 Metoclopramide 10 mg IV at 40 mg/hr once over 15 mins ordered. ke 15:15 fentaNYL (PF) 50 mcg IVP once ordered. ke 15:34 PCR was scanned into [employer] and attached to record. gb 16:09 Bisacodyl Suppository 10 mg ME once ordered. ke 16:17 fentaNYL (PF) 50 mcg IVP once ordered. ke 17:34 NG/OG Tube 18Fr to L.I.S. with hourly monitoring for placement ordered. ke 17:34 LORazepam 2 mg IVP once ordered. ke 18:15 Admission / Observation Status ordered. EDMS 18:15 NPO DIET ordered. EDMS 18:19 URINALYSIS Ordered. EDMS 18:19 URINE CULTURE Ordered. EDMS 18:19 BLOOD CULTURES Ordered. EDMS 18:20 PORTABLE CHEST X-RAY Ordered. EDMS 18:22 ELECTROCARDIOGRAM ADULT ordered. EDMS 19:34 CBC WITH DIFFERENTIAL Ordered. EDMS 19:34 COMPLETE COMPHRENSIVE METABOLI Ordered. EDMS 19:34 morphine 1 mg IVP once ordered. mgs 19:34 MAGNESIUM LEVEL Ordered. EDMS 19:34 PROTHROMBIN TIME PROFILE\E\INR Ordered. EDMS 02/ 11:33 T-Sheet-- Draft Copy was scanned into [employer] and attached to record. gb Administered Medications: 10/15 13:13 Drug: NS 0.9% 1000 ml [sodium chloride 0.9 % injection solution] Route: IV; Rate: 250 pml mL/hr; Site: right antecubital; 13:13 Drug: Ondansetron 8 mg Route: IVP; Site: right antecubital; pml 13:44 Drug: morphine 4 mg [morphine 4 mg/mL intravenous cartridge (1 mL)] Route: IVP; Site: pml right antecubital; 14:10 Follow up: Response: No significant change. pml 14:20 Drug: Metoclopramide 10 mg [metoclopramide 5 mg/mL injection solution] Route: IV; Rate: pml 40 mg/hr; Infused Over: 15 mins; Site: right antecubital; 15:30 Drug: fentaNYL (PF) 50 mcg [fentanyl (PF) 50 mcg/mL injection solution (1 mL)] Route: ld5 IVP; Site: right antecubital; 16:01 Follow up: BP 158 / 86; Pulse 104 bpm; Resp 20 bpm; Pulse Ox 94% RA; Pain 6/10 Adult; ld5 Response: Confirmed pt not driving.; Pain is decreased 16:25 Drug: fentaNYL (PF) 50 mcg [fentanyl (PF) 50 mcg/mL injection solution (1 mL)] Route: ld5 IVP; Site: right antecubital; 16:40 Drug: Bisacodyl 10 mg [bisacodyl 10 mg rectal suppository (1 supp)] Route: ME; ld5 18:16 Drug: LORazepam 2 mg [lorazepam 2 mg/mL injection solution (1 mL)] Route: IVP; Site: ld5 right antecubital; Signatures: Dispatcher [employer] EDMS Soo Pena, Reg Reg gb Carlos Culver, Reg Reg lg Rosales Huerta, GATHERING MACHINE SETTER GATHERING MACHINE SETTER Tristian Perez MD MD br1 Lashawn Burton RN RN pml Sheldon, Matthew, RN RN Grcay Rhodes RN RN lmg Dickerson, Laura RN ld5 The chart was reviewed and I authenticate all verbal orders and agree with the evaluation and treatment provided.Attachments: 13:49 [facility] Payment Agreement lg 10/16 11:33 T-Sheet-- Draft Copy gb Chart Complete MTDD
[2016-10-17] MEDS: AMITRIPTYLINE 25 MG TAB PO SCH (21:59)
[2016-10-17] MEDS: ONDANSETRON 4MG/2ML VIAL (J2405) IV PRN (22:19)
[2016-10-18 02:00] VITALS: BP 130/77
[2016-10-18 06:00] VITALS: BP 123/71
[2016-10-18] MEDS: OCTREOTIDE ACETATE 100 MCG/ML VIAL (J2354) IV SCH ×3 (06:18→21:58)
[2016-10-18] MEDS: D5W/0.9% SODIUM CHLORIDE 1,000 ML IV SCH ×3 (06:18→21:58)
[2016-10-18 10:00] VITALS: BP 130/80
[2016-10-18] MEDS: OSELTAMIVIR PHOSPHATE 75 MG CAP (TAMIFLU) PO SCH ×2 (10:07→20:46)
[2016-10-18] MEDS: oxyCODONE 15 MG CR TAB PO SCH ×3 (10:07→20:50)
[2016-10-18] MEDS: PANTOPRAZOLE 40MG INJ (PROTONIX) (C9113) IV SCH (10:07)
[2016-10-18] MEDS: MULTIVITAMINS/MINERALS THERAP 1 TAB PO SCH (10:08)
[2016-10-18] MEDS: GABAPENTIN 400 MG CAP PO SCH ×3 (10:08→21:58)
[2016-10-18] MEDS: ZINC SULFATE 220 MG CAP PO SCH ×2 (10:08→20:46)
[2016-10-18] MEDS: FERROUS SULFATE 325MG TAB PO SCH (10:08)
[2016-10-18] MEDS: FLUCONAZOLE 100 MG TAB PO SCH (10:08)
[2016-10-18] MEDS: PARoxetine 20 MG TAB PO SCH (10:08)
[2016-10-18] MEDS: DOXYCYCLINE HYCLATE 100 MG TAB PO SCH ×2 (10:08→20:47)
[2016-10-18] MEDS: NYSTATIN 100,000 UNITS/GM TOPICAL PWD 15 GM TOP SCH ×2 (10:09→20:51)
--- NOTE | 2016-10-18 11:06 | REP ---
Acute abdominal series four views including supine AP chest and supine views of the abdomen and decubitus view of the abdomen with the right side down. Comparisons are the acute ulcers of 10/17/[address] abdomen pelvis of , 10/15/2016. Supine AP chest: Nasogastric tube is unchanged from 10/17/2016. Lung vines are clear. Cardiac size is normal. Supine position precludes evaluation of free subdiaphragmatic air. In the visible granulomas again noted in the left upper lobe. Impression: No acute cardiopulmonary findings. Abdomen, supine and upright views: A stoma is noted superimposed over the abdomen on the right, unchanged. Dilated small bowel loops are again identified with multiple air-fluid levels, not significantly changed from 10/17/2016. Impression: Multiple dilated small bowel loops with multiple air-fluid levels compatible with small bowel obstruction with no significant change from 10/17/2016. Half half Signed by Miguel Ángel Rodgers MD 10/18/2016 09:29 A
[2016-10-18 13:57] LABS: BASO % 0.3 % (0.0-1.0); EOS # 0.3 K/mm3 (0.0-0.50); EOS % 3.4 % (0.0-3.0); LARGE UNSTAINED CELL # 0.1 K/mm3 (0.0-0.4); LARGE UNSTAINED CELL % 1.4 % (0.0-4.0); LYMPH # 0.9 K/mm3 (1.5-4.5); LYMPH % 9.3 % (24.0-44.0); MEAN CORPUSCULAR HEMOGLOBIN 29.3 pg (27.0-33.0); MEAN CORPUSCULAR HGB CONC 29.8 g/dl (32.0-36.5); MEAN CORPUSCULAR VOLUME 98.5 fl (80.0-96.0); MONO # 0.5 K/mm3 (0.0-0.8); MONO % 5.4 % (0.0-5.0); NEUTROPHILS % 80.2 % (36.0-66.0); PLATELET COUNT, AUTOMATED 264 k/mm3 (150-450); RED CELL DISTRIBUTION WIDTH 14.9 % (11.5-14.5); WHITE BLOOD COUNT 8.7 K/mm3 (4.0-10.0)
[2016-10-18] MEDS: SIMETHICONE 80 MG CHEW TAB PO SCH ×3 (14:04→20:47)
[2016-10-18 14:27] LABS: ALBUMIN 2.8 GM/DL (3.2-5.2); ALKALINE PHOSPHATASE 144 U/L (45-117); ALT/SGPT 47 U/L (12-78); ANION GAP 4 MEQ/L (8-16); AST/SGOT 44 U/L (15-37); BILIRUBIN,TOTAL 0.6 MG/DL (0.2-1.0); BLOOD UREA NITROGEN 13 MG/DL (7-18); CALCIUM LEVEL 8.2 MG/DL (8.8-10.2); CARBON DIOXIDE LEVEL 32 MEQ/L (21-32); CHLORIDE LEVEL 109 MEQ/L (98-107); CREATININE FOR GFR 1.29 MG/DL (0.70-1.30); GLOMERULAR FILTRATION RATE > 60.0 (>49); GLUCOSE, FASTING 120 MG/DL (80-110); MAGNESIUM LEVEL 2.7 MG/DL (1.8-2.4); POTASSIUM SERUM 3.9 MEQ/L (3.5-5.1); SODIUM LEVEL 145 MEQ/L (136-145); TOTAL PROTEIN 7.5 GM/DL (6.4-8.2)
[2016-10-18 15:05] VITALS: BP 120/86
--- NOTE | 2016-10-18 15:07 | IPN ---
DATE: 10/18/2016 SUBJECTIVE This is a 61-year-old male who was seen and examined at bedside. Overnight no report of acute events. States that his abdominal pain is no longer present. He is very anxious to go home despite knowing that he has a lot of output from his NG tube. Today, again refused lab work despite explaining the importance of having daily lab work while he is nothing by mouth and his initial presentation was also acute kidney injury. No fevers, chills, chest pain, shortness of breath, palpitations. OBJECTIVE: VITAL SIGNS: Blood pressure 123/71, heart rate 91, temperature 97.7, respiration rate 19, pulse ox 91% on room air. INTAKE AND OUTPUT LAST 24 HOURS: 2423 and 1325. He has had approximately 1325 mL in the NG tube in the last 24 hours and 800 since midnight. GENERAL: Patient is sitting in bed, comfortable, in no acute distress. Alert, awake, oriented times three. Pleasant, cooperative. HEENT: Normocephalic, atraumatic. Moist oral mucosa. NECK: Supple, trachea midline, difficult to appreciate jugular venous distention (JVD) secondary to neck size. CHEST: Symmetric chest rise, no accessory muscle use. Breath sounds diminished with occasional crackles in the lung bases. HEART: Regular, distant sounding, not tachycardic. Regular sounding, normal S1 , S2. ABDOMEN: Protuberant with midline ostomy with yellow liquid contents. Right ostomy bas is without any stool. Bowel sounds hypoactive. Abdomen is protuberant, ditended. EXTREMITIES: Appears edematous but not pitting. He is wearing offloading boots. Difficult to appreciate pedal pusles. LABORATORY DATA: No new labs today. Patient did refuse lab work. IMAGING: Abdominal x-ray this morning with multiple dilated small bowel loops with multiple air fluid levels compatible with small bowel obstruction. No change. IMPRESSION AND PLAN: Mr. Dolan is a 61-year-old male with extensive past medical history presented with abdominal pain, found to have small bowel obstruction. 1. Small bowel obstruction. Unfortunately continues to have persistent obstruction and still increased output from his NG tube. The patient reportedly fired his own vascular surgeon in [place]. He was also given the option to transfer to a tertiary center for further treatment of his current condition; however I' m a he declined at this time. Case discussed with Dr. Morse. He will have his NG tube clamped for now and will be started on simethicone. Greatly appreciate Dr. Morse's assistance. 2. Acute kidney injury (SHAYY), resolving though we do not have lab work to follow up today because the patient refused blood draw. 3. 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 4. 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 Continue fluconazole and doxycycline. 5. Congestive heart failure. Compensated. Monitor fluid status as he does have documented history of this. 6. Obstructive sleep apnea reportedly is not compliant with continuous positive airway pressure (CPAP). 7. Abdominal aortic aneurysm status post repair. He is on lifelong Coumadin for thrombosis prevention. 8. Influenza. Is on Tamiflu. 9. Chronic obstructive pulmonary disease. Continue nebulizer treatment. 10. Iron deficiency anemia. Continue iron supplementation. 11. Gastroesophageal reflux disease. Continue Protonix. 12. Stage 4 decubitus ulcer on presentation. Continue wound care. 13. Depression. Continue Paxil. 14. 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 Continue gabapentin 400 three times a day. 15. Chronic pain on pain control, his home regimen. 16. Deep vein thrombosis prophylaxis. Sequential compression devices (SCDs) and thromboembolic deterrent stockings (TEDS) and Coumadin. My preceptor for this patient encounter was Dr. Francis Sunshine. The preceptor was physically present in the building during the encounter and was fully available as needed. All aspects of the patient interview, examination, medical decision making process, and medical care plan development were reviewed and approved by the preceptor. The preceptor is aware and concurs with the plan as stated in the body of this note and will attest to such by his/her co-signature. MARIAELENA
--- NOTE | 2016-10-18 16:10 | IPN ---
DATE: 10/18/2016 The patient was again seen today for reevaluation of his small bowel obstruction, it seems to be a partial small bowel obstruction but has any enterocutaneous fistula distal to the enterocutaneous fistula appears to be completely obstructed given no ostomy output. I have discussed the findings with the patient as well as his primary care provider concerning his current situation and it does not appear that he seems to be resolving this in a progressive nature, although he is not in pain, not having discomfort. His white count has been decreasing but her refuses numerous procedures/care for him, one of which was TPN, and lab draws etc. He states that he really wants his NG tube out and wants to leave the hospital. He is very frustrated, does not want to operative intervention and states that he will if he gets an operation and thus does not want to operation. On his physical exam he still has a tympanitic abdomen. His x-rays show that he has distended air-filled small bowel but he does have air and liquid in his enterocutaneous fistula bag. He is not nauseated any more, but his NG tube output has been significant. He has been afebrile. Does not have a tender abdomen. IMPRESSION AND PLAN: The patient has a enterocutaneous fistula that may be developing into his primary ostomy at this time with a distal obstruction. His options are to proceed with a exploratory laparotomy with a repair of this cutaneous fistula/resolution of his bowel obstruction, or to possibly have this be his primary ostomy for the future. Such as a loop colostomy would be performed for someone with a distal colonic obstruction. In any case, I do feel this is a extremely poor option for him given the wound complications that it presents as well as the inflammatory process that is associated with the significant bile leak, etc. Unfortunately, when we reviewed his CT scan his abdominal wall is diastatic and his hernia extends from his subxiphoid position down to his pubis. His axillary bifemoral (fem-fem) graft is just anterior to this and inferior aspect of his hernia. I anticipate if he needs operative intervention for this hernia/cutaneous fistula that there is a higher risk for him to develop an infected cross femoral graft, and I would recommend that if operative intervention be considered that he be at a facility that has vascular available should revision or thrombectomy need to be performed in the perioperative setting. In addition, I anticipate that he will need to have a postoperative open wound, he will require a prolonged wound care and may need plastics involvement for special muscle flaps. And thus his indications for transfer. Transfer all to a higher level care should this be necessary if he does not tolerate his NG tube clamped, which we will perform over the next 24 hours and if his abdominal distension / small bowel distension does not increase over this time. If it does not, then we can attempt to discontinue the NG tube and possibly start him on a clear liquid diet.
[2016-10-18] MEDS: WARFARIN SOD 2 MG TAB PO SCH (17:07)
[2016-10-18 18:00] VITALS: BP 138/82
[2016-10-18] MEDS: MORPHINE 2 MG/ML 1ML SYRINGE IV PRN ×2 (18:10→22:11)
[2016-10-18] MEDS: AMITRIPTYLINE 25 MG TAB PO SCH (20:47)
[2016-10-18 22:00] VITALS: BP 126/80
[2016-10-18] MEDS: ONDANSETRON 4MG/2ML VIAL (J2405) IV PRN (22:10)
[2016-10-19] VITALS (7 sets, daily range): BP systolic 124–162; BP diastolic 65–87
[2016-10-19] MEDS: MORPHINE 2 MG/ML 1ML SYRINGE IV PRN ×3 (03:10→22:07)
[2016-10-19 06:22] LABS: BASO % 0.4 % (0.0-1.0); EOS # 0.3 K/mm3 (0.0-0.50); EOS % 3.3 % (0.0-3.0); LARGE UNSTAINED CELL # 0.2 K/mm3 (0.0-0.4); LARGE UNSTAINED CELL % 2.2 % (0.0-4.0); LYMPH # 1.2 K/mm3 (1.5-4.5); LYMPH % 13.8 % (24.0-44.0); MEAN CORPUSCULAR HEMOGLOBIN 28.9 pg (27.0-33.0); MEAN CORPUSCULAR HGB CONC 29.4 g/dl (32.0-36.5); MEAN CORPUSCULAR VOLUME 98.5 fl (80.0-96.0); MONO # 0.6 K/mm3 (0.0-0.8); MONO % 6.8 % (0.0-5.0); NEUTROPHILS # 6.2 K/mm3 (1.8-7.7); NEUTROPHILS % 73.5 % (36.0-66.0); PLATELET COUNT, AUTOMATED 255 k/mm3 (150-450); RED CELL DISTRIBUTION WIDTH 14.9 % (11.5-14.5); WHITE BLOOD COUNT 8.5 K/mm3 (4.0-10.0)
[2016-10-19 06:29] LABS: INR 2.06
[2016-10-19 06:40] LABS: ALBUMIN 2.5 GM/DL (3.2-5.2); ALBUMIN/GLOBULIN RATIO 0.61 (1.00-1.93); ALKALINE PHOSPHATASE 135 U/L (45-117); ALT/SGPT 40 U/L (12-78); ANION GAP 6 MEQ/L (8-16); AST/SGOT 38 U/L (15-37); BILIRUBIN,TOTAL 0.5 MG/DL (0.2-1.0); BLOOD UREA NITROGEN 10 MG/DL (7-18); CALCIUM LEVEL 8.3 MG/DL (8.8-10.2); CARBON DIOXIDE LEVEL 29 MEQ/L (21-32); CHLORIDE LEVEL 108 MEQ/L (98-107); CREATININE FOR GFR 1.24 MG/DL (0.70-1.30); GLOMERULAR FILTRATION RATE > 60.0 (>49); GLUCOSE, FASTING 137 MG/DL (80-110); MAGNESIUM LEVEL 2.4 MG/DL (1.8-2.4); POTASSIUM SERUM 3.4 MEQ/L (3.5-5.1); SODIUM LEVEL 143 MEQ/L (136-145); TOTAL PROTEIN 6.6 GM/DL (6.4-8.2)
[2016-10-19] MEDS: ONDANSETRON 4MG/2ML VIAL (J2405) IV PRN ×2 (06:44→14:26)
[2016-10-19] MEDS: OCTREOTIDE ACETATE 100 MCG/ML VIAL (J2354) IV SCH ×3 (06:44→22:07)
[2016-10-19] MEDS: OSELTAMIVIR PHOSPHATE 75 MG CAP (TAMIFLU) PO SCH ×2 (09:34→21:05)
[2016-10-19] MEDS: PANTOPRAZOLE 40MG INJ (PROTONIX) (C9113) IV SCH (09:34)
[2016-10-19] MEDS: FLUCONAZOLE 100 MG TAB PO SCH (09:34)
[2016-10-19] MEDS: GABAPENTIN 400 MG CAP PO SCH ×3 (09:34→21:04)
[2016-10-19] MEDS: ZINC SULFATE 220 MG CAP PO SCH ×2 (09:35→21:04)
[2016-10-19] MEDS: PARoxetine 20 MG TAB PO SCH (09:36)
[2016-10-19] MEDS: MULTIVITAMINS/MINERALS THERAP 1 TAB PO SCH (09:36)
[2016-10-19] MEDS: SIMETHICONE 80 MG CHEW TAB PO SCH ×4 (09:37→21:04)
[2016-10-19] MEDS: oxyCODONE 15 MG CR TAB PO SCH ×3 (09:38→21:06)
[2016-10-19] MEDS: DOXYCYCLINE HYCLATE 100 MG TAB PO SCH ×2 (09:39→21:05)
[2016-10-19] MEDS: FERROUS SULFATE 325MG TAB PO SCH (09:49)
[2016-10-19] MEDS: NYSTATIN 100,000 UNITS/GM TOPICAL PWD 15 GM TOP SCH ×2 (09:52→21:07)
[2016-10-19] MEDS ORDERED: POTASSIUM CHLORIDE 10% LIQ 20 MEQ/15 ML UDC PO ONE (10:00)
--- NOTE | 2016-10-19 10:00 | REP ---
ABDOMINAL SERIES: Four views. HISTORY: Small bowel obstruction. FINDINGS: Chest radiograph shows clear well inflated lungs. Right hemidiaphragm remains somewhat elevated. An NG tube enters left upper quadrant. No change in the chest x-ray from the October 18, 2016 study. Supine and cross-table lateral views of the abdomen show no evidence of free air. There are still air-fluid levels in the central abdomen and dilated small bowel loops. The number of loops involved and the degree of distension has decreased somewhat since yesterday's study. There is air and stool in the right colon. A right lower quadrant enterostomy is seen. Scattered surgical clips are noted in the abdomen. IMPRESSION: Small bowel obstruction pattern, somewhat improved from yesterday's radiographs. Signed by Antolin Uribe MD 10/19/2016 10:08 A
[2016-10-19] MEDS: D5W/0.9% SODIUM CHLORIDE 1,000 ML IV SCH (14:32)
[2016-10-19] MEDS: WARFARIN SOD 2 MG TAB PO SCH (17:52)
[2016-10-19] MEDS ORDERED: SENNA 8.6 MG TAB (SENOKOT) PO PRN (21:00)
[2016-10-19] MEDS: AMITRIPTYLINE 25 MG TAB PO SCH (21:05)
[2016-10-19] MEDS: MOM 30ML SUSPENSION UDC PO PRN (21:06)
[2016-10-19] MEDS: DOCUSATE SOD LIQ 100MG/10ML UDC GT SCH (22:06)
[2016-10-20 02:00] VITALS: BP 108/64
--- NOTE | 2016-10-20 02:56 | IPN ---
DATE OF SERVICE: 10/19/2016 SUBJECTIVE: This is a 61-year-old male who was seen and examined at bedside. Overnight, he was given ice chips, had his tube clamped. Unfortunately, had significant nasogastric (NG) output still. He finally was agreeable to have his labs done. Reports one bowel movement through his ostomy bag. Continued to deny any abdominal pain, nausea, vomiting, fevers, chills, cough. OBJECTIVE: VITAL SIGNS: Blood pressure 147/83, heart rate 63, temperature 96.5, respiration rate 16, pulse oximetry 93% on room air. Intake and output last 24 hours: 820 and 3425 with gastric drainage 3300. There is one emesis documented two days ago. GENERAL: Patient is lying in bed, comfortable, no acute distress. Alert, awake , oriented times three. Pleasant, cooperative. HEENT: Normocephalic, atraumatic. Dry oral mucosa. NECK: Large, could not appreciate jugular venous distention (JVD). Trachea is midline. CHEST: Symmetric chest rise, no accessory muscle use. Breath sounds diminished throughout. Appears to make some coarse sounds, but is coming from his throat. HEART: Regular, distant sounding, not tachycardic, normal S1, S2. ABDOMEN: Protuberant with midline ostomy with not significant stool. His right ostomy bag has one formed small stool present, yellow, no gross blood appreciated. Abdomen is more soft today compared to yesterday. Bowel sounds still somewhat hypoactive, but it is not tender to palpation. EXTREMITIES: Still appear edematous, 1+. Sensory is intact. He is wearing offloading boots. Pedal pulses are still difficult to appreciate. LABORATORY DATA: WBC 8.5, hemoglobin 11.7, hematocrit 39.7, platelets 255. Sodium 143, potassium 3.4, chloride 108, carbon dioxide 29, BUN 10, creatinine 1.24, glucose 137, calcium 8.3, magnesium 2.4. AST 38, ALT 40, alkaline phosphatase 135. Coagulation panel: PT 23, INR 2.06. Abdominal x-ray today showed small bowel obstruction somewhat improved compared to previous study. IMPRESSION AND PLAN: Mr. Dolan is a 61-year-old male with an unfortunate past medical history who presented with abdominal pain, found to have small bowel obstruction. 1. Small bowel obstruction. Currently followed by surgery. Unfortunately, he still has significant output from his nasogastric (NG) tube, but was able to tolerate his NG clamp. He is also having bowel movement with formed stool and abdomen is a lot softer today compared to yesterday. Per surgery's recommendation, the patient will remain on NG tube at this time and if he continues to have good output from his colostomy, then there is consideration for removal of NG tube and advancement in his diet. Greatly appreciate Dr. Morse's and Dr. Hi's assistance. He is on simethicone by mouth four times a day. The patient is also on octreotide to help decrease his NG output. 2. Acute kidney injury (SHAYY), resolved. Because of his nothing by mouth status , the patient will remain on intravenous (IV) fluid at this time. Should his diet be advanced, we will discontinue IV hydration 3. Enterocutaneous fistula. Unfortunately, complications from his previous abdominal surgery. 4. 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 He is on fluconazole and doxycycline. Also on Coumadin to prevent thrombosis events. 5. Congestive heart failure. Compensated. Monitor fluid status. Does not appear to be on Lasix prior to admission. We have decreased his IV fluid intake. Hopefully, this can be discontinued once he has NG tube removed and diet advanced. 6. History of obstructive sleep apnea. Could not tolerate continuous positive airway pressure (CPAP) outpatient. 7. Abdominal aortic aneurysm status post repair. 8. Influenza. He is on Tamiflu. Tomorrow will be the fifth day of Tamiflu. 9. Chronic obstructive pulmonary disease (COPD). He is on nebulizer treatment. 10. Iron deficiency anemia. Continue iron supplementation. He is on milk of magnesia for stool regimen while on iron supplementation and narcotics. Colace and Senokot added. 11. Gastroesophageal reflux disease (GERD). Continue Protonix. 12. Stage IV decubitus ulcer on presentation. Continue wound care. 13. Depression. Continue Paxil. 14. 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 Continue gabapentin 400 mg by mouth three times a day. 15. Chronic pain. He is on his home regimen pain control. 16. History of bowel perforation status post ostomy. 17. Hypokalemia. Potassium has been repleted. 18. Deep venous thrombosis (DVT) prophylaxis. Sequential compression devices (SCDs), thromboembolism deterrents (TEDs), and Coumadin. INR is therapeutic. My preceptor for this patient encounter was Dr. Francis Sunshine. The preceptor was physically present in the building during the encounter and was fully available as needed. All aspects of the patient interview, examination, medical decision making process, and medical care plan development were reviewed and approved by the preceptor. The preceptor is aware and concurs with the plan as stated in the body of this note and will attest to such by his/her co-signature. MARIAELENA
[2016-10-20 05:30] VITALS: BP 119/65
[2016-10-20] MEDS: guaiFENesin SYRUP 200 MG/10 ML UDC PO SCH ×3 (06:11→17:38)
[2016-10-20] MEDS: OCTREOTIDE ACETATE 100 MCG/ML VIAL (J2354) IV SCH ×3 (06:11→22:08)
--- NOTE | 2016-10-20 08:14 | REP ---
PORTABLE CHEST X-RAY: Sitting AP view. HISTORY: Cough and desaturations. Comparison radiographs are from October 19, 2016. FINDINGS: Nasogastric tube is again seen entering the left upper quadrant of the abdomen. The lungs are symmetrically aerated and clear. There are is no evidence of infiltrate. Right hemidiaphragm is somewhat elevated as before. Pleural angles are sharp. IMPRESSION: No infiltrate seen. Signed by Antolin Uribe MD 10/20/2016 08:24 A
[2016-10-20] MEDS: SIMETHICONE 80 MG CHEW TAB PO SCH ×4 (09:00→20:21)
[2016-10-20] MEDS: D5W/0.9% SODIUM CHLORIDE 1,000 ML IV SCH ×2 (09:12→22:09)
--- NOTE | 2016-10-20 09:58 | REP ---
ABDOMINAL SERIES: Two views. HISTORY: Small bowel obstruction. Comparison study October 20, 2016. FINDINGS: AP view of the chest shows a nasogastric tube in place with its tip in the distal esophagus at the level of the gastroesophageal junction. This should be advanced. Right hemidiaphragm is elevated. The lungs are symmetrically aerated and free of infiltrate. There is a granulomatous nodule in the left upper lung zone overlapping the anterior end of the 3rd rib unchanged from CT study dated August 29, 2010. Supine and cross-table lateral views of the abdomen demonstrate dilated small bowel loops in the central abdomen displaying air-fluid levels compatible with small bowel obstruction pattern. No evidence of free air. There is some stool in the right colon near the enterostomy ring. The number of loops and the degree of dilation is more pronounced today than on the October 19, 2016 study. IMPRESSION: Small bowel obstruction pattern more pronounced today than on yesterday's study. NG tube terminates in the distal esophagus at the GE junction. Signed by Antolin Uribe MD 10/20/2016 11:02 A
[2016-10-20 10:00] VITALS: BP 132/84
[2016-10-20] MEDS: PANTOPRAZOLE 40MG INJ (PROTONIX) (C9113) IV SCH (11:02)
[2016-10-20] MEDS: BISACODYL 10 MG SUPP XX SCH ×2 (11:03→20:21)
--- NOTE | 2016-10-20 13:03 | IPN ---
DATE: 10/20/2016 Mr. Dolan had some shortness of breath last night. He has been refusing labs and blood draws. NG tube came out. He did not want it put back in. I went and discussed this with the patient and Dr. Hi at bedside and the patient was suggesting that he did not want any further intervention and would like to try to eat. He certainly has said that he does not want surgery. He wanted to discuss this with his who I alerted by phone to this discussion. Temperature 100, pulse 114, respiratory rate 20, blood pressure 119/65, 88% on 3 liters. Later on, he did have a temperature of 102.4 at 10:00 a.m. He is awake, alert, with obvious capacity to make decisions. He is responding appropriately to questions. He is following commands. Breathing is symmetrical, diminished. Heart is tachycardiac. Abdomen is somewhat distended with an ostomy bag and large midline bag as well. White cell count is 8.5, hemoglobin 11.7 and platelets 255. INR is 2.06. Potassium is 3.4. Creatinine is 1.2. Blood cultures from the were negative. Abdominal x-ray from today looks to be slightly worse than it was previously. ASSESSMENT: This is a 61-year-old with multiple medical issues with a small bowel obstruction. PLAN: 1. For small bowel obstruction, I have discussed his case in person with Dr. Hi. At this point, would recommend NG tube be replaced. If he needs surgery, he would need transfer to a tertiary care center. He would benefit greatly from nutrition, but has refused a PICC line and TPN. 2. The patient has a febrile illness. My suspicion at this point is that he has suffered an aspiration event due to the movement of his NG tube and his general debility. At this point, he is refusing any kind of labs or intervention. Will await further decision. 3. The patient is tachycardic. This likely represents early sepsis. Again, at this point, he is refusing further intervention. He certainly has capacity to make his own decisions. He is quite eloquent when describing his experience with medical care and at this point he is considering pursuing comfort care. 4. The patient has enterocutaneous fistula. 5. The patient has axillary bifemoral bypass graft with history of disseminated Candidiasis, on chronic fluconazole and doxycycline. He also is on Coumadin with a therapeutic INR to prevent thrombosis. 6. The patient has congestive heart failure. He appears to be compensated from this standpoint. 7. The patient has obstructive sleep apnea (ARON). He cannot tolerate CPAP. 8. The patient has history of abdominal aortic aneurysm. 9. The patient has influenza. Tamiflu has been discontinued as he has received the last dose. 10. The patient has chronic obstructive pulmonary disease. 11. The patient has iron deficiency anemia. 12. The patient has gastroesophageal reflux disease. 13. The patient has stage IV decubitus present on admission. 14. The patient has chronic neuropathy. 15. The patient has hypokalemia, which will be repleted. 16. The patient has therapeutic Coumadin for deep vein thrombosis prophylaxis.
[2016-10-20] MEDS: DOCUSATE SOD LIQ 100MG/10ML UDC GT SCH ×2 (13:15→22:08)
[2016-10-20] MEDS: FLUCONAZOLE 100 MG TAB PO SCH (13:16)
[2016-10-20] MEDS: FERROUS SULFATE 325MG TAB PO SCH (13:17)
[2016-10-20] MEDS: GABAPENTIN 400 MG CAP PO SCH ×3 (13:17→20:20)
[2016-10-20] MEDS: oxyCODONE 15 MG CR TAB PO SCH ×3 (13:19→20:22)
[2016-10-20] MEDS: ACETAMINOPHEN 325 MG TAB PO PRN (13:19)
[2016-10-20] MEDS: DOXYCYCLINE HYCLATE 100 MG TAB PO SCH ×2 (13:20→20:20)
[2016-10-20] MEDS: OSELTAMIVIR PHOSPHATE 75 MG CAP (TAMIFLU) PO SCH ×2 (13:22→20:20)
[2016-10-20] MEDS: MULTIVITAMINS/MINERALS THERAP 1 TAB PO SCH (13:23)
[2016-10-20] MEDS: ZINC SULFATE 220 MG CAP PO SCH ×2 (13:23→20:20)
[2016-10-20] MEDS: PARoxetine 20 MG TAB PO SCH (13:23)
[2016-10-20] MEDS: NYSTATIN 100,000 UNITS/GM TOPICAL PWD 15 GM TOP SCH ×2 (13:32→20:23)
[2016-10-20 14:00] VITALS: BP 115/63
[2016-10-20] MEDS ORDERED: ACETAMINOPHEN TAB 650MG DOSE (2X325MG) PO PRN (15:09)
[2016-10-20] MEDS: MORPHINE 2 MG/ML 1ML SYRINGE IV PRN (15:30)
[2016-10-20] MEDS: PIPERACILLIN/TAZOBACTAM SOD 3.375 GM in D5W MINI-BAG PLUS 50 ML IV SCH ×2 (15:31→20:20)
--- NOTE | 2016-10-20 15:37 | PHACANCOPD ---
PHARMACY VANCOMYCIN DOSING Pt Demographics Demographics Patient Age:61 , Weight:107.000 , Gender: male Adjusted Body Weight Date: 10/20/16, Adjusted Body Weight: [85.22] Kg Events Past 24 Hours Events Past 24 Hours: YES: Fever, NO: Change in CrCl, Dialysis, Diuretic Therapy, Elevation in WBC, Other, Pending Diagnostics, Pending Procedures Vancomycin Vancomycin indication: fever/possible aspiration pna Vancomycin Target Ranges: 10-20 mcg/ml Vancomycin Load Y/N: No Load Dose Date Time Vancomycin Load Dose: Date: Time: Vancomycin Dose Date: 10/20/16. Current Vancomycin Dose: [1g IV q12h @17] Intermittent Dosing?: No Labs Labs Item Value Date Time Creatinine 1.41 MG/DL H 10/16/16 0558 Creatinine 1.25 MG/DL 10/17/16 0831 Creatinine 1.29 MG/DL 10/18/16 1340 Creatinine 1.24 MG/DL 10/19/16 0604 Item Value Date Time White Blood Count 13.8 K/mm3 H 10/16/16 0558 White Blood Count 11.1 K/mm3 H 10/17/16 0836 White Blood Count 8.7 K/mm3 10/18/16 1340 White Blood Count 8.5 K/mm3 10/19/16 0604 Vital Signs Label Value Date Time Patient Temperature 100.0 degrees F 10/20/16 0530 Temperature Source Tympanic 10/20/16 0530 Patient Temperature 102.4 degrees F 10/20/16 1000 Temperature Source Tympanic 10/20/16 1000 Patient Temperature 101.7 degrees F 10/20/16 1400 Temperature Source Tympanic 10/20/16 1400 Micro Microbiology 10/15/16 Blood Culture - Preliminary, Resulted No Growth after 72 hours. All specime... 10/15/16 Influenza Virus Type A Antigen - Final, Complete 10/15/16 Influenza Virus Type B Antigen - Final, Complete Creatinine Clearance Date:10/20/16. Creatinine Clearance: . Assessment and Plan Maintaining Current Dose?: Yes Reason for dose change: No Dose Change Pharmacist Note Pharmacist Note Date: 10/20/16. Pharmacist note: pt has been started on Zosyn and Vancomycin for fevers (possible aspiration pneumonia from removing own ng tube). His SCr is about at baseline although I am still waiting for labs for today as he refused morning labs. Based on his vancomycin dosing a year ago (August 2015) I have resumed the same dosing. We will continue to monitor and order a trough as necessary. Sourav Damon Pharm.D. Oct 20, 2016 15:37
[2016-10-20 15:52] LABS: INR 2.21
[2016-10-20 15:53] LABS: BASO % 0.2 % (0.0-1.0); EOS % 0.3 % (0.0-3.0); LARGE UNSTAINED CELL # 0.2 K/mm3 (0.0-0.4); LARGE UNSTAINED CELL % 1.3 % (0.0-4.0); LYMPH # 0.6 K/mm3 (1.5-4.5); LYMPH % 4.7 % (24.0-44.0); MEAN CORPUSCULAR HEMOGLOBIN 28.9 pg (27.0-33.0); MEAN CORPUSCULAR HGB CONC 30.7 g/dl (32.0-36.5); MEAN CORPUSCULAR VOLUME 94.2 fl (80.0-96.0); MONO # 0.5 K/mm3 (0.0-0.8); MONO % 4.2 % (0.0-5.0); NEUTROPHILS # 10.6 K/mm3 (1.8-7.7); NEUTROPHILS % 89.4 % (36.0-66.0); PLATELET COUNT, AUTOMATED 244 k/mm3 (150-450); RED CELL DISTRIBUTION WIDTH 14.7 % (11.5-14.5); WHITE BLOOD COUNT 11.8 K/mm3 (4.0-10.0)
[2016-10-20 16:11] LABS: ALBUMIN 2.4 GM/DL (3.2-5.2); ALBUMIN/GLOBULIN RATIO 0.67 (1.00-1.93); BILIRUBIN,TOTAL 0.9 MG/DL (0.2-1.0); CALCIUM LEVEL 7.8 MG/DL (8.8-10.2); CREATININE FOR GFR 1.41 MG/DL (0.70-1.30); GLOMERULAR FILTRATION RATE 54.6 (>49); MAGNESIUM LEVEL 2.2 MG/DL (1.8-2.4); POTASSIUM SERUM 3.5 MEQ/L (3.5-5.1)
[2016-10-20] MEDS: WARFARIN SOD 2 MG TAB PO SCH (17:38)
[2016-10-20] MEDS: VANCOMYCIN HCL 1,000 MG, VIAL MATE ADAPTER 1 EACH in D5W 250 ML IV SCH (17:38)
[2016-10-20 18:00] VITALS: BP 117/57
[2016-10-20] MEDS: AMITRIPTYLINE 25 MG TAB PO SCH (20:20)
[2016-10-20 22:00] VITALS: BP 102/57
[2016-10-21] MEDS: guaiFENesin SYRUP 200 MG/10 ML UDC PO SCH ×5 (00:56→23:49)
[2016-10-21 02:00] VITALS: BP 106/62
[2016-10-21] MEDS: PIPERACILLIN/TAZOBACTAM SOD 3.375 GM in D5W MINI-BAG PLUS 50 ML IV SCH ×4 (02:53→21:36)
[2016-10-21] MEDS: VANCOMYCIN HCL 1,000 MG, VIAL MATE ADAPTER 1 EACH in D5W 250 ML IV SCH ×2 (05:17→17:51)
[2016-10-21] MEDS: OCTREOTIDE ACETATE 100 MCG/ML VIAL (J2354) IV SCH ×3 (05:17→21:39)
[2016-10-21 06:00] VITALS: BP 109/57
[2016-10-21 08:31] LABS: BASO % 0.2 % (0.0-1.0); EOS # 0.3 K/mm3 (0.0-0.50); EOS % 2.5 % (0.0-3.0); LARGE UNSTAINED CELL # 0.1 K/mm3 (0.0-0.4); LARGE UNSTAINED CELL % 1.2 % (0.0-4.0); LYMPH # 0.9 K/mm3 (1.5-4.5); LYMPH % 6.1 % (24.0-44.0); MEAN CORPUSCULAR HEMOGLOBIN 29.4 pg (27.0-33.0); MEAN CORPUSCULAR HGB CONC 30.9 g/dl (32.0-36.5); MEAN CORPUSCULAR VOLUME 95.2 fl (80.0-96.0); MONO # 0.6 K/mm3 (0.0-0.8); MONO % 5.3 % (0.0-5.0); NEUTROPHILS # 9.8 K/mm3 (1.8-7.7); NEUTROPHILS % 84.7 % (36.0-66.0); PLATELET COUNT, AUTOMATED 226 k/mm3 (150-450); RED CELL DISTRIBUTION WIDTH 15.2 % (11.5-14.5); WHITE BLOOD COUNT 11.6 K/mm3 (4.0-10.0)
[2016-10-21 08:36] LABS: INR 2.52
[2016-10-21 09:02] LABS: ALBUMIN 2.2 GM/DL (3.2-5.2); ALBUMIN/GLOBULIN RATIO 0.56 (1.00-1.93); BILIRUBIN,TOTAL 0.7 MG/DL (0.2-1.0); CALCIUM LEVEL 8.1 MG/DL (8.8-10.2); CREATININE FOR GFR 1.32 MG/DL (0.70-1.30); GLOMERULAR FILTRATION RATE 58.9 (>49); MAGNESIUM LEVEL 2.2 MG/DL (1.8-2.4); POTASSIUM SERUM 3.3 MEQ/L (3.5-5.1); TOTAL PROTEIN 6.1 GM/DL (6.4-8.2)
[2016-10-21 10:00] VITALS: BP 129/68
[2016-10-21] MEDS: PANTOPRAZOLE 40MG INJ (PROTONIX) (C9113) IV SCH (10:25)
[2016-10-21] MEDS: DOCUSATE SOD LIQ 100MG/10ML UDC GT SCH (10:26)
[2016-10-21] MEDS: FLUCONAZOLE 100 MG TAB PO SCH (10:26)
[2016-10-21] MEDS: MULTIVITAMINS/MINERALS THERAP 1 TAB PO SCH (10:27)
[2016-10-21] MEDS: FERROUS SULFATE 325MG TAB PO SCH (10:27)
[2016-10-21] MEDS: PARoxetine 20 MG TAB PO SCH (10:27)
[2016-10-21] MEDS: SIMETHICONE 80 MG CHEW TAB PO SCH ×4 (10:27→21:37)
[2016-10-21] MEDS: GABAPENTIN 400 MG CAP PO SCH ×3 (10:27→21:37)
[2016-10-21] MEDS: ZINC SULFATE 220 MG CAP PO SCH ×2 (10:27→21:00)
--- NOTE | 2016-10-21 10:27 | PHACANCOPD ---
PHARMACY VANCOMYCIN DOSING Pt Demographics Demographics Patient Age:61 , Weight:112.500 , Gender: male Adjusted Body Weight Date: 10/20/16, Adjusted Body Weight: [85.22] Kg Vancomycin Vancomycin indication: fever/possible aspiration pna Vancomycin Target Ranges: 10-20 mcg/ml Vancomycin Load Y/N: No Load Dose Date Time Vancomycin Load Dose: Date: Time: Vancomycin Dose Date: 10/20/16. Current Vancomycin Dose: [1g IV q12h @17] Intermittent Dosing?: No Labs Micro Microbiology 10/20/16 Blood Culture, Received Pending 10/20/16 Blood Culture, Received Pending 10/15/16 Blood Culture - Final, Complete NO GROWTH AFTER 5 DAYS 10/15/16 Influenza Virus Type A Antigen - Final, Complete 10/15/16 Influenza Virus Type B Antigen - Final, Complete 10/20/16 Urine Culture, Received Pending Creatinine Clearance Date:10/20/16. Creatinine Clearance: . Assessment and Plan Maintaining Current Dose?: Yes Reason for dose change: No Dose Change Pharmacist Note Pharmacist Note 10/21/16: Scr remains stable today at 1.32. I have scheduled a trough to be drawn 10/22/16 @ 1600, prior to the 5th dose. WBC remains elevated, and patient has been febrile in the past 24 hours. Cultures are still pending. We will continue to monitor and make dose adjustments as needed. Date: 10/20/16. Pharmacist note: pt has been started on Zosyn and Vancomycin for fevers (possible aspiration pneumonia from removing own ng tube). His SCr is about at baseline although I am still waiting for labs for today as he refused morning labs. Based on his vancomycin dosing a year ago (August 2015) I have resumed the same dosing. We will continue to monitor and order a trough as necessary. HASMUKH DOTSON [facility]ARM[facility] Oct 21, 2016 10:27
[2016-10-21] MEDS: BISACODYL 10 MG SUPP XX SCH ×2 (10:28→21:39)
[2016-10-21] MEDS: DOXYCYCLINE HYCLATE 100 MG TAB PO SCH ×2 (10:28→21:37)
[2016-10-21] MEDS: NYSTATIN 100,000 UNITS/GM TOPICAL PWD 15 GM TOP SCH ×2 (10:28→21:39)
[2016-10-21] MEDS: oxyCODONE 15 MG CR TAB PO SCH ×3 (10:30→21:38)
[2016-10-21] MEDS: MORPHINE 2 MG/ML 1ML SYRINGE IV PRN (12:07)
--- NOTE | 2016-10-21 13:21 | REP ---
ACUTE ABDOMINAL SERIES: 10/21/2016. Comparison to 10/20/2016, 10/19/2016. Clinical history: Small bowel obstruction, fever. AP chest. Nasogastric tube has been removed since yesterday's examination. There is elevation of the right diaphragm. There is some linear atelectatic change adjacent to the left heart border. Some underlying fibrotic changes and apical pleural scarring noted on the left with axillary clips on the right. No gross cardiomegaly or kenji edema. The aorta is normal for age. Airway intact. There is some retrocardiac atelectasis or infiltrate in the left lower lobe silhouetting the medial portion of the left diaphragm, new from yesterday. Abdomen: Supine and cross-table lateral views of the abdomen were provided. There is an ostomy in the right mid abdomen laterally, surgical clips overlying the L3-S1 region to the left of midline. On the supine images, there is a loop of dilated small bowel loop centrally and towards the left upper quadrant. There is much less gas overall compared to yesterday's study. There is scattered gas in the lower abdomen and pelvis. Abundant stool in the right colon extending toward the ostomy. Cross-table lateral view shows no compression deformity. There is a fusion at the L4-5 level with [id number] appearance as on the CT 10/15/2016. There are air-fluid levels on the cross-table lateral view, but no free air. Impression: 1. Much improved small bowel obstructive pattern, the nasogastric tube has been removed. There are still dilated small bowel loops centrally and in left upper quadrant but the overall gas filled and distended loops are decreased in number. 2. Moderate stool in the right colon which is just medial to the ostomy in the right upper quadrant. 3. Surgical clips paramedian in the left periaortic region as well as in the right upper quadrant. 4. A few air-fluid levels in these mildly dilated small bowel loops without free air. This suggest ileus and/or resolving small bowel obstruction. Signed by Juan Molina MD 10/21/2016 04:23 P
[2016-10-21] MEDS: D5W/0.9% SODIUM CHLORIDE 1,000 ML IV SCH (15:48)
[2016-10-21 16:00] VITALS: BP 151/72
[2016-10-21] MEDS: WARFARIN SOD 2 MG TAB PO SCH (17:52)
[2016-10-21 18:00] VITALS: BP 131/63
[2016-10-21] MEDS ORDERED: POTASSIUM CHLORIDE 10 MEQ SR TABLET PO ONE (18:30)
--- NOTE | 2016-10-21 20:18 | IPN ---
DATE: 10/21/2016 Mr. Dolan still has no nasogastric (NG) tube in. He says he does not have any abdominal pain or distention and he is not nauseous. He has had no further febrile episodes noted from yesterday. He would like to drink. PHYSICAL EXAMINATION: Temperature is 98.1, pulse 86, respiratory rate 19, blood pressure 109/57, 85% on four liters. Input and output notable for a positive fluid balance of 1160. He has had some stool noted from his ostomy bag and a great deal more of gastric drainage noted. He is awake with a somewhat flattened affect. is at bedside. Mucous membranes are moist. Neck is supple. Breathing is symmetrically diminished throughout. Heart is distant sounding, normal S1, S2. He is not tachycardiac. Abdomen is soft without tenderness. There is some hard stool in his ostomy bag and some gas and bilious liquid in the drain on the center of his abdomen. LABORATORY DATA: White cell count is 11.6, hemoglobin 10.7. INR is 2.5. BUN 10, creatinine is 1.3. Urine culture is pending. UA from yesterday showed too numerous to count white blood cells. Abdominal x-ray from today showed improved small bowel obstructive pattern. ASSESSMENT: This is a 61-year-old with multiple medical issues and a small bowel obstruction. PLAN: 1. For his small bowel obstruction, I have discussed his case in person with Dr. Morse today who is elected to give the patient clear liquids. The patient has been reticent to pursue aggressive measures and during the course of his hospitalization has, in fact, refused various forms of treatment. Certainly, at this point, he is refusing peripherally inserted central catheter (PICC) line, total parenteral nutrition (TPN), nasogastric (NG) tube, or transfer to a tertiary care center should he require surgery. 2. The patient had a febrile illness on 10/20/2016. This is possibly related to underlying urinary tract infection, awaiting cultures, continuing broad-spectrum antibiotics for now. There are also a number infectious illnesses going around the community at this time and, in fact, he was influenza B positive outside the hospital. Although he was outside the window to use Tamiflu, he has been receiving it in an attempt to speed his recovery. 3. The patient has enterocutaneous fistula. 4. The patient has axillary bifemoral bypass graft with history of disseminated Candidiasis, on chronic fluconazole and doxycycline. He is on Coumadin with a therapeutic international normalized ratio (INR) to prevent thrombosis. 5. The patient has congestive heart failure which appears to be compensated. 6. The patient has obstructive sleep apnea (ARON) and cannot tolerate continuous positive airway pressure (CPAP). 7. The patient has an abdominal aortic aneurysm (AAA). 8. The patient has influenza. He has received Tamiflu during this hospitalization. 9. The patient has chronic obstructive pulmonary disease (COPD). 10. The patient has iron deficiency anemia. 11. The patient has gastroesophageal reflux disease (GERD). 12. The patient has a stage IV decubitus which was present on admission. 13. The patient has chronic neuropathy and bladder incontinence. 14. The patient has hypokalemia which will be repleted.
[2016-10-21] MEDS: DOCUSATE SODIUM 100 MG CAP PO SCH (21:37)
[2016-10-21] MEDS: AMITRIPTYLINE 25 MG TAB PO SCH (21:37)
[2016-10-21 22:00] VITALS: BP 112/56
[2016-10-22 02:00] VITALS: BP 111/62
[2016-10-22] MEDS: PIPERACILLIN/TAZOBACTAM SOD 3.375 GM in D5W MINI-BAG PLUS 50 ML IV SCH ×4 (02:55→21:36)
[2016-10-22] MEDS: MORPHINE 2 MG/ML 1ML SYRINGE IV PRN ×2 (03:28→23:35)
[2016-10-22] MEDS: guaiFENesin SYRUP 200 MG/10 ML UDC PO SCH ×5 (05:23→23:33)
[2016-10-22] MEDS: OCTREOTIDE ACETATE 100 MCG/ML VIAL (J2354) IV SCH ×2 (05:23→14:56)
[2016-10-22] MEDS: D5W/0.9% SODIUM CHLORIDE 1,000 ML IV SCH ×2 (05:23→18:05)
[2016-10-22] MEDS: VANCOMYCIN HCL 1,000 MG, VIAL MATE ADAPTER 1 EACH in D5W 250 ML IV SCH (05:23)
[2016-10-22 06:00] VITALS: BP 114/58
[2016-10-22 08:45] LABS: BASO % 0.1 % (0.0-1.0); EOS # 0.4 K/mm3 (0.0-0.50); EOS % 3.6 % (0.0-3.0); LARGE UNSTAINED CELL # 0.2 K/mm3 (0.0-0.4); LARGE UNSTAINED CELL % 1.5 % (0.0-4.0); MEAN CORPUSCULAR HEMOGLOBIN 29.6 pg (27.0-33.0); MEAN CORPUSCULAR HGB CONC 31.2 g/dl (32.0-36.5); MEAN CORPUSCULAR VOLUME 94.9 fl (80.0-96.0); MONO # 0.6 K/mm3 (0.0-0.8); MONO % 5.3 % (0.0-5.0); NEUTROPHILS # 9.3 K/mm3 (1.8-7.7); NEUTROPHILS % 82.5 % (36.0-66.0); PLATELET COUNT, AUTOMATED 230 k/mm3 (150-450); WHITE BLOOD COUNT 11.2 K/mm3 (4.0-10.0)
[2016-10-22 08:53] LABS: INR 3.14
[2016-10-22 09:06] LABS: ALBUMIN 2.1 GM/DL (3.2-5.2); ALBUMIN/GLOBULIN RATIO 0.62 (1.00-1.93); ALKALINE PHOSPHATASE 139 U/L (45-117); ALT/SGPT 27 U/L (12-78); ANION GAP 8 MEQ/L (8-16); AST/SGOT 21 U/L (15-37); BILIRUBIN,TOTAL 0.6 MG/DL (0.2-1.0); BLOOD UREA NITROGEN 8 MG/DL (7-18); CALCIUM LEVEL 7.8 MG/DL (8.8-10.2); CARBON DIOXIDE LEVEL 30 MEQ/L (21-32); CHLORIDE LEVEL 104 MEQ/L (98-107); CREATININE FOR GFR 1.25 MG/DL (0.70-1.30); GLOMERULAR FILTRATION RATE > 60.0 (>49); GLUCOSE, FASTING 148 MG/DL (80-110); POTASSIUM SERUM 3.3 MEQ/L (3.5-5.1); SODIUM LEVEL 142 MEQ/L (136-145); TOTAL PROTEIN 5.5 GM/DL (6.4-8.2)
[2016-10-22] MEDS: SIMETHICONE 80 MG CHEW TAB PO SCH ×4 (09:58→21:00)
[2016-10-22] MEDS: PANTOPRAZOLE 40MG INJ (PROTONIX) (C9113) IV SCH (09:58)
[2016-10-22] MEDS: ZINC SULFATE 220 MG CAP PO SCH ×2 (09:58→21:36)
[2016-10-22] MEDS: DOCUSATE SODIUM 100 MG CAP PO SCH ×2 (09:59→21:36)
[2016-10-22] MEDS: FERROUS SULFATE 325MG TAB PO SCH (09:59)
[2016-10-22] MEDS: GABAPENTIN 400 MG CAP PO SCH ×3 (09:59→21:36)
[2016-10-22] MEDS: DOXYCYCLINE HYCLATE 100 MG TAB PO SCH ×2 (09:59→21:36)
[2016-10-22] MEDS: BISACODYL 10 MG SUPP XX SCH ×2 (09:59→21:38)
[2016-10-22] MEDS: MULTIVITAMINS/MINERALS THERAP 1 TAB PO SCH (09:59)
[2016-10-22] MEDS: FLUCONAZOLE 100 MG TAB PO SCH (09:59)
[2016-10-22] MEDS: PARoxetine 20 MG TAB PO SCH (09:59)
[2016-10-22 10:00] VITALS: BP 110/62
[2016-10-22] MEDS: NYSTATIN 100,000 UNITS/GM TOPICAL PWD 15 GM TOP SCH ×2 (10:00→21:37)
[2016-10-22] MEDS: oxyCODONE 15 MG CR TAB PO SCH ×3 (10:01→21:37)
--- NOTE | 2016-10-22 11:20 | IPNPDOC ---
Assessment/Plan Date Seen The patient was seen on 10/22/16. Problems Problems: (1) Small bowel obstruction Status: Acute Response to Treatment: Progressing Discussed With: [employer] Black Trainer, Patient Problem Specific Plan: Consult Specialist, Monitor Clinically Problem Text: Patient appears to be tolerating clear liquid diet. He has been refusing most treatment including NG tube, PICC line, TPN, and transfer to appropriate facility with appropriate services. Will continue to follow as per surgery. Doxycycline for motility. Octreotide. (2) AAA (abdominal aortic aneurysm) Status: Chronic (3) Decubitus ulcer of ankle, stage 4 Status: Chronic Problem Text: Present on admission. (4) Neuropathy Status: Chronic (5) ARON (obstructive sleep apnea) Status: Chronic Problem Text: Non-compliant with CPAP. (6) CHF (congestive heart failure) Status: Chronic Response to Treatment: Compensated Problem Specific Plan: Monitor Clinically (7) Influenza B Status: Resolved Problem Text: Has completed appropriate course of Tamiflu. (8) Febrile illness Status: Acute Problem Specific Plan: Monitor Clinically, Repeat Labs Problem Text: Still receiving vanco and zosyn - day #3. Unclear etiology. Has remained afebrile. Also receiving doxycycline and diflucan. (9) Abdominal wall fistula Status: Chronic (10) Urinary retention Status: Chronic (11) Chronic pain Status: Chronic Problem Text: Continue amitriptyline, neurontin. (12) Chronic kidney disease Status: Chronic (13) Microcytic anemia Status: Chronic (14) COPD (chronic obstructive pulmonary disease) Status: Chronic (15) S/P aorto-bifemoral bypass surgery Permanent Comment: placed after accidental perforation during attempted L4-5 partial discectomy; infected with yeast, REMOVED and had placement of a RIGHT AXILLOBIFEMORAL BYPASS 08/18/2014; REQUIRES LIFELONG DIFLUCAN Last Edited By: Judy Key DO on Sep 09, 2015 14:34 Status: Chronic Plan / VTE VTE Prophylaxis Ordered?: Yes Plan Diet: Continue Current Activity: Continue Current Diagnostics: Repeat Labs in AM Anticipated Discharge: Home, Home With Services Subjective Review of Systems CC/HPI The patient is a 61-year-old male admitted with a reason for visit of Small Bowel Obstruction. General: Denies: Chills, Fatigue, Malaise, Night Sweats, Normal Appetite, Other Symptoms, ROS Unobtainable Constitutional: Denies: Chills, Fatigue, Fever, Lethargy, Malaise, Night Sweats , Other, Weakness, Weight Loss Eyes: Denies: Conjunctivae inflammation, Eyelid inflammation, Other, Pain, Redness, Vision change ENT: Denies: Dysphagia, Ear Pain, Epistaxis, Head Aches, Other Symptoms, Post Nasal Drip, Sinus Congestion, Sore Throat Skin: Denies: Breakdown, Bruising, Dry, Itching, Jaundice, Lesions, Nail Changes, Other, Rash Pulmonary: Denies: Cough, Dyspnea, Other Symptoms, Pleuritic Chest Pain Cardiovascular: Denies: Chest Pain, Edema, Lt Headedness, Orthopnea, Other Symptoms, Palpitations, Paroxysmal Noc. Dyspnea Gastrointestinal: Denies: Abdominal Pain, Constipation, Diarrhea, Hematochezia , Melena, Nausea, Other Symptoms, Vomiting Objective Physical Examination General Exam: Positive: Alert, Cooperative, No Acute Distress Eye Exam: Positive: PERRLA ENT Exam: Positive: Atraumatic Neck Exam: Positive: Supple Chest Exam: Positive: Clear to auscultation Heart Exam: Positive: Rate Normal, Regular Rhythm Abdomen Exam: Positive: Normal bowel sounds, Soft, Negative: Tenderness Extremity Exam: Negative: Edema Vital Signs/I&O Vital Signs Date Time Temp Pulse Resp B/P Pulse Ox O2 Delivery O2 Flow Rate FiO2 10/22/16 06:00 97.6 68 21 114/58 90 Nasal Cannula 3.0 10/20/16 10:00 90 I&O- Last 24 Hours up to 6 AM 10/22/16 06:00 Intake Total 2765 ml Output Total 525 ml Balance 2240 ml Laboratory Data Labs 24H Laboratory Tests 2 10/22/16 08:30: Blood Urea Nitrogen 8, Creatinine 1.25, Sodium Level 142, Potassium Level 3.3L, Chloride Level 104, Carbon Dioxide Level 30, Calcium Level 7.8L, Aspartate Amino Transf (AST/SGOT) 21, Alanine Aminotransferase (ALT/SGPT) 27, Alkaline Phosphatase 139H, Total Bilirubin 0.6, Total Protein 5.5L, Albumin 2.1L, Albumin /Globulin Ratio 0.62L, Anion Gap 8, White Blood Count 11.2H, Red Blood Count 3.68L, Hemoglobin 10.9L, Hematocrit 35.0L, Mean Corpuscular Volume 94.9, Mean Corpuscular Hemoglobin 29.6, Mean Corpuscular Hemoglobin Concent 31.2L, Red Cell Distribution Width 15.0H, Platelet Count 230, Neutrophils (%) (Auto) 82.5H , Lymphocytes (%) (Auto) 7.0L, Monocytes (%) (Auto) 5.3H, Eosinophils (%) (Auto ) 3.6H, Basophils (%) (Auto) 0.1, Neutrophils # (Auto) 9.3H, Lymphocytes # (Auto ) 1.0L, Monocytes # (Auto) 0.6, Eosinophils # (Auto) 0.4, Basophils # (Auto) 0.0 , Glomerular Filtration Rate > 60.0, Large Unclassified Cells # 0.2, Large Unclassified Cells % 1.5, Magnesium Level 2.0, Prothromb Time International Ratio 3.14, Prothrombin Time 32.3H CBC/BMP Laboratory Tests 10/22/16 08:30 Calcium Level 7.8 L, Aspartate Amino Transf (AST/SGOT) 21, Alanine Aminotransferase (ALT/SGPT) 27, Alkaline Phosphatase 139 H, Total Bilirubin 0.6 , Total Protein 5.5 L, Albumin 2.1 L, Red Blood Count 3.68 L, Mean Corpuscular Volume 94.9, Mean Corpuscular Hemoglobin 29.6, Mean Corpuscular Hemoglobin Concent 31.2 L, Red Cell Distribution Width 15.0 H, Neutrophils (%) (Auto) 82.5 H, Lymphocytes (%) (Auto) 7.0 L, Monocytes (%) (Auto) 5.3 H, Eosinophils (%) ( Auto) 3.6 H, Basophils (%) (Auto) 0.1, Neutrophils # (Auto) 9.3 H, Lymphocytes # (Auto) 1.0 L, Monocytes # (Auto) 0.6, Eosinophils # (Auto) 0.4, Basophils # ( Auto) 0.0 Microbiology Microbiology 10/20/16 Blood Culture - Preliminary, Resulted No growth after 24 hours . All specim... 10/20/16 Blood Culture - Preliminary, Resulted No growth after 24 hours . All specim... 10/15/16 Blood Culture - Final, Complete NO GROWTH AFTER 5 DAYS 10/15/16 Influenza Virus Type A Antigen - Final, Complete 10/15/16 Influenza Virus Type B Antigen - Final, Complete 10/20/16 Urine Culture, Received Pending JAYA DAVISON MD Oct 22, 2016 11:20
[2016-10-22 14:00] VITALS: BP 131/61
[2016-10-22] MEDS: ONDANSETRON 4MG/2ML VIAL (J2405) IV PRN (15:14)
[2016-10-22] MEDS ORDERED: VANCOMYCIN HCL 1,000 MG, VIAL MATE ADAPTER 1 EACH in D5W 250 ML IV SCH ×2 (17:00→23:00)
[2016-10-22] MEDS: WARFARIN SOD 2 MG TAB PO SCH (17:00)
--- NOTE | 2016-10-22 17:06 | PHACANCOPD ---
PHARMACY VANCOMYCIN DOSING Pt Demographics Demographics Patient Age:61 , Weight:113.100 , Gender: male Adjusted Body Weight Date: 10/22/16, Adjusted Body Weight: [85] Kg Events Past 24 Hours Events Past 24 Hours: NO: Change in CrCl, Dialysis, Diuretic Therapy, Elevation in WBC, Fever, Other, Pending Diagnostics, Pending Procedures Vancomycin Vancomycin indication: FEBRILE ILLNESS, SBO Vancomycin Target Ranges: 10-20 mcg/ml Vancomycin Load Y/N: No Load Dose Date Time Vancomycin Load Dose: Date: Time: Vancomycin Dose Date: 10/22/16. CHANGE Current Vancomycin Dose: [1g IV q18h @23:00] Intermittent Dosing?: No Labs Labs Laboratory Tests Test 10/22/16 15:54 Vancomycin Level Trough 24.4UG/ML (10.0-20.0) Laboratory Tests 10/22/16 08:30 Calcium Level 7.8, Aspartate Amino Transf (AST/SGOT) 21, Alanine Aminotransferase (ALT/SGPT) 27, Alkaline Phosphatase 139, Total Bilirubin 0.6, Total Protein 5.5, Albumin 2.1, Red Blood Count 3.68, Mean Corpuscular Volume 94.9, Mean Corpuscular Hemoglobin 29.6, Mean Corpuscular Hemoglobin Concent 31.2 , Red Cell Distribution Width 15.0, Neutrophils (%) (Auto) 82.5, Lymphocytes (% ) (Auto) 7.0, Monocytes (%) (Auto) 5.3, Eosinophils (%) (Auto) 3.6, Basophils (% ) (Auto) 0.1, Neutrophils # (Auto) 9.3, Lymphocytes # (Auto) 1.0, Monocytes # ( Auto) 0.6, Eosinophils # (Auto) 0.4, Basophils # (Auto) 0.0 Micro Microbiology NOS Creatinine Clearance Date:11/01. Creatinine Clearance: [75ml/min]. Assessment and Plan Maintaining Current Dose?: No Reason for dose change: Trough too high Pharmacist Note Pharmacist Note 10/22/16 PHARM.D. NOTE: 61YO MNALE, 69" in HEIGHT, 113KG in WEIGHT (ABW = 85MG) , ADMITTED WITH FEBRILE ILLNESS, SBO & MULTIPLE COMORBIDITIES. HE IS CURRENTLY ON VANCO 1GM IV Q12H AND ZOSYN 3.375GM IV Q6H. CULTURES ARE ALL NEGATIVE AT THIS TIME. A VANCO TROUGH TODAY = 24.4 mcg/ml; ALL ASSOCIATED ABX DOSING TIMES WERE MET AND NO NURSING ADMINISTRATION OUTLIERS ARE NOTED. WE WILL CHANGE HIS TO VANCO 1GM IV Q18H STARTING AT 23:00 THIS EVENING. SCR 1.25mcg/ml TODAY WE WILL REPEAT A VANCO TROUGH WHEN HE IS A STEADY STATE. DANA, Pharm.D. [facility] Oct 22, 2016 17:06
[2016-10-22 18:00] VITALS: BP 138/66
[2016-10-22] MEDS: AMITRIPTYLINE 25 MG TAB PO SCH (21:36)
[2016-10-22 22:00] VITALS: BP 136/71
[2016-10-23 02:00] VITALS: BP 118/64
[2016-10-23] MEDS: PIPERACILLIN/TAZOBACTAM SOD 3.375 GM in D5W MINI-BAG PLUS 50 ML IV SCH ×2 (03:40→09:33)
[2016-10-23] MEDS: MORPHINE 2 MG/ML 1ML SYRINGE IV PRN (03:44)
[2016-10-23] MEDS: guaiFENesin SYRUP 200 MG/10 ML UDC PO SCH (05:15)
[2016-10-23 06:00] VITALS: BP 118/68
[2016-10-23 06:07] LABS: INR 3.34
[2016-10-23] MEDS: DOCUSATE SODIUM 100 MG CAP PO SCH (09:33)
[2016-10-23] MEDS: oxyCODONE 15 MG CR TAB PO SCH (09:33)
[2016-10-23] MEDS: ZINC SULFATE 220 MG CAP PO SCH (09:34)
[2016-10-23] MEDS: DOXYCYCLINE HYCLATE 100 MG TAB PO SCH (09:34)
[2016-10-23] MEDS: PARoxetine 20 MG TAB PO SCH (09:34)
[2016-10-23] MEDS: FERROUS SULFATE 325MG TAB PO SCH (09:34)
[2016-10-23] MEDS: MULTIVITAMINS/MINERALS THERAP 1 TAB PO SCH (09:34)
[2016-10-23] MEDS: SIMETHICONE 80 MG CHEW TAB PO SCH ×2 (09:34→09:42)
[2016-10-23] MEDS: PANTOPRAZOLE 40MG INJ (PROTONIX) (C9113) IV SCH (09:34)
[2016-10-23] MEDS: GABAPENTIN 400 MG CAP PO SCH (09:34)
[2016-10-23] MEDS: BISACODYL 10 MG SUPP XX SCH (09:35)
[2016-10-23] MEDS: NYSTATIN 100,000 UNITS/GM TOPICAL PWD 15 GM TOP SCH (09:35)
--- NOTE | 2016-10-23 15:03 | DS.PDOC ---
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 Bilateral lower extremity compartment syndrome s/p fasciotomy Cholecystitis s/p cholecystectomy Anemia Enterocutaneous fistula Gastroparesis Non-compliance Surgical History Anteriro L4-L5 discectomy Tracheostomy Aortobifemoral bypass graft DISCHARGE DIAGNOSES: Small bowel obstruction Lumbar spondylosis with Lumbosacral joint disc disease COPD GERD Chronic depression and anxiety CA 08/2014 Disseminated candidiasis Pseudomonoas osteomyelitis of sacrum L4-S1 spinal stenosis 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 HOSPITAL COURSE: Patient was admitted for small bowel obstruction. Surgery was consulted for further assistance. Patient refused NG tube. Patient also refusing PICC line and TPN for alternative means of nutrition. DISCHARGE MEDICATIONS: Please see below. ALLERGIES: Please see below. PHYSICAL EXAMINATION ON DISCHARGE: VITAL SIGNS: Please see below. GENERAL: NAD HEENT: NC/AT, EOMI NECK: supple CARDIOVASCULAR EXAMINATION: +S1S2, RRR RESPIRATORY EXAMINATION: CTA B/L ABDOMINAL EXAMINATION: soft, NT, +BS, ostomy site c/d/i PSYCHIATRIC EXAMINATION: AAOx3 LABORATORY DATA: Please see below. VTE Prophylaxis ordered?: yes DISCHARGE CONDITION: guarded prognosis DISPOSITION: [facility] ACTIVITY: as tolerated DIET: full liquids as tolerated DISCHARGE PLAN AND INSTRUCTIONS: 1. PCP in 3-5 days. 2. Specialized surgical services at tertiary care center for further evaluation and treatment. TIME SPENT ON DISCHARGE: Greater than 30 minutes. Vital Signs/I&Os Vital Signs Date Time Temp Pulse Resp B/P Pulse Ox O2 Delivery O2 Flow Rate FiO2 10/23/16 11:25 82 Room Air 10/23/16 09:33 18 10/23/16 06:00 98.0 68 118/68 10/23/16 00:58 3.0 10/20/16 10:00 90 I&O- Last 24 Hours up to 6 AM 10/23/16 06:00 Intake Total 1720 ml Output Total 450 ml Balance 1270 ml Laboratory Data Labs 24H Laboratory Tests 2 10/22/16 15:54: Vancomycin Level Trough 24.4H 10/23/16 05:52: Prothromb Time International Ratio 3.34, Prothrombin Time 33.9H Microbiology Microbiology 10/20/16 Blood Culture - Preliminary, Resulted No Growth after 48 hours. All Specime... 10/20/16 Blood Culture - Preliminary, Resulted No Growth after 48 hours. All Specime... 10/15/16 Blood Culture - Final, Complete NO GROWTH AFTER 5 DAYS 10/15/16 Influenza Virus Type A Antigen - Final, Complete 10/15/16 Influenza Virus Type B Antigen - Final, Complete 10/20/16 Urine Culture - Final, Complete E.coli Esbl Medications Scheduled (Aquaphor) 1 Oin Oin 1 DOSE TOP 3XW BID MON, WED, FRI - APPLY TO CHEST AND LEGS Amitriptyline HCl (Amitriptyline HCl) 25 Mg Tab 25 MG PO QHS Doxycycline Hyclate (Doxycycline Hyclate) 100 Mg Tab 100 MG PO BID Ferrous Sulfate (Ferrous Sulfate) 325 Mg Tab 325 MG PO DAILY Fluconazole (Fluconazole) 200 Mg Tab 400 MG PO DAILY Gabapentin (Gabapentin) 400 Mg Cap 400 MG PO TID Multivitamins *[facility] STOCKED* (Thera M Plus *[facility]MET [facility] STOCKED*) 1 Tab Tab 1 TAB PO DAILY Oxycodone HCl (Oxycodone HCl ER) 15 Mg Tab 15 MG PO TID Pantoprazole Sodium (Pantoprazole Sodium) 40 Mg Tab 40 MG PO DAILY Paroxetine (Paroxetine HCl) 40 Mg Tab 40 MG PO DAILY Pregabalin (Lyrica) 50 Mg Cap 50 MG PO BID Warfarin Sod (Coumadin) 2 Mg Tab 2 MG PO 1XWK QPM: FRIDAY Warfarin Sod (Warfarin Sodium) 1 Mg Tab 1 MG PO 6XWK QPM: SUN, MON, TUES, THURS, FRI, SAT Zinc Sulfate (Zinc Sulfate) 220 Mg Tab 220 MG PO BID Scheduled PRN Acetaminophen (Acetaminophen) 325 Mg Tab 650 MG PO Q4H PRN PRN PAIN / FEVER Albuterol Sulfate (Albuterol Sulfate) 2.5 Mg/0.5 Ml Neb 2.5 MG INH Q4H PRN PRN SHORTNESS OF BREATH Aluminum/Magnesium/Simeth (Mylanta 200-200-20 mg/5Ml) 1 Irene Irene 30 ML PO Q4H PRN PRN GAS PAIN Metoclopramide HCl (Metoclopramide HCl) 5 Mg Tab 5 MG PO QID PRN PRN NAUSEA Milk Of Magnesia (Milk of Magnesia) 1,200 Mg/15 Ml Irene 30 ML PO DAILY PRN PRN CONSTIPATION Oxycodone Hcl (Oxycodone HCl) 15 Mg Tab 15 MG PO Q6H PRN PRN SEVERE PAIN (PS 8- 10) Allergies Coded Allergies: Bupropion (Unverified Adverse Reaction, Mild, AGITATION, INCREASED DEPRESSION, 12/20/12) Fluoxetine (Unverified Adverse Reaction, Mild, DEPRESSION, 12/20/12) Hydromorphone (Verified Adverse Reaction, Mild, HYPOGLYCEMIA, 12/20/12) Mirtazapine (Unverified Adverse Reaction, Mild, NIGHTMARES, 12/20/12) Oxymorphone (Verified Adverse Reaction, Mild, N/V, 12/20/12) Pregabalin (Unverified Adverse Reaction, Mild, INCONTINENCE, 12/20/12) Sertraline (Unverified Adverse Reaction, Mild, DIARRHEA,INCREASED DEPRESSION, 12/20/12) JAYA DAVISON MD Oct 23, 2016 15:03 Oxymorphone (Verified Adverse Reaction, Mild, N/V, 12/20/12) Pregabalin (Unverified Adverse Reaction, Mild, INCONTINENCE, 12/20/12) Sertraline (Unverified Adverse Reaction, Mild, DIARRHEA,INCREASED DEPRESSION, 12/20/12) JAYA DAVISON MD Oct 23, 2016 15:03
== END 2016-10-23 12:17 | DRG 247 ==
LOC: M ED 11:48 → M ED INP 18:07 → M MSPAV 19:50
PROVIDERS: ADMIT Internal Medicine; ATTEND Internal Medicine
DX: K56.5 Intestinal adhesions [bands] with obstruction (postinfection) (principal); L89.154 Pressure ulcer of sacral region, stage 4; N17.9 Acute kidney failure, unspecified; I50.32 Chronic diastolic (congestive) heart failure; K63.2 Fistula of intestine; N39.0 Urinary tract infection, site not specified; J44.9 Chronic obstructive pulmonary disease, unspecified; G62.9 Polyneuropathy, unspecified; K21.9 Gastro-esophageal reflux disease without esophagitis; M47.816 Spondylosis without myelopathy or radiculopathy, lumbar region; Z79.899 Other long term (current) drug therapy; I25.10 Atherosclerotic heart disease of native coronary artery without angina pectoris; N18.9 Chronic kidney disease, unspecified; I25.2 Old myocardial infarction; M19.90 Unspecified osteoarthritis, unspecified site; G47.33 Obstructive sleep apnea (adult) (pediatric); J10.2 Influenza due to other identified influenza virus with gastrointestinal manifestations; D50.9 Iron deficiency anemia, unspecified; E87.6 Hypokalemia

== ENCOUNTER → 2016-10-25 | Outpatient (REF) ==
[~2016-10-25] MED LIST changes: +AMIT25TA PO; +AQUAOIN2 TOP; +METO5TAB2 PO; +MILKSUS PO; +MYLASUS2 PO; +OXYC-423 PO; +OXYC15TA76 PO; +PREG50CA PO; +WARF4TAB52 PO
[2016-10-25 11:44] LABS: INR 2.76
== END ==
PROVIDERS: ATTEND Internal Medicine
DX: Z79.01 Long term (current) use of anticoagulants (principal)

== ENCOUNTER → 2016-10-29 | Outpatient (REF) ==
[2016-10-29 10:56] LABS: MEAN CORPUSCULAR HEMOGLOBIN 28.4 pg (27.0-33.0); MEAN CORPUSCULAR HGB CONC 30.1 g/dl (32.0-36.5); MEAN CORPUSCULAR VOLUME 94.5 fl (80.0-96.0); RED CELL DISTRIBUTION WIDTH 15.3 % (11.5-14.5); WHITE BLOOD COUNT 8.2 K/mm3 (4.0-10.0)
[2016-10-29 11:36] LABS: CALCIUM LEVEL 8.4 MG/DL (8.8-10.2); CREATININE FOR GFR 1.62 MG/DL (0.70-1.30); GLOMERULAR FILTRATION RATE 46.5 (>49); POTASSIUM SERUM 3.5 MEQ/L (3.5-5.1)
== END ==
PROVIDERS: ATTEND Internal Medicine
DX: D64.9 Anemia, unspecified (principal)

== ENCOUNTER → 2016-10-30 | Outpatient (REF) ==
[2016-10-30 11:39] LABS: INR 3.91
== END ==
PROVIDERS: ATTEND Internal Medicine
DX: I48.91 Unspecified atrial fibrillation (principal)

== ENCOUNTER → 2016-11-01 | Outpatient (REF) ==
[2016-11-01 13:35] LABS: INR 2.93
== END ==
PROVIDERS: ATTEND Internal Medicine
DX: I48.91 Unspecified atrial fibrillation (principal)

== ENCOUNTER → 2016-11-04 | Outpatient (REF) ==
[2016-11-04 16:16] LABS: MEAN CORPUSCULAR HEMOGLOBIN 29.4 pg (27.0-33.0); MEAN CORPUSCULAR HGB CONC 31.4 g/dl (32.0-36.5); MEAN CORPUSCULAR VOLUME 93.5 fl (80.0-96.0); RED CELL DISTRIBUTION WIDTH 15.3 % (11.5-14.5); WHITE BLOOD COUNT 6.8 K/mm3 (4.0-10.0)
[2016-11-04 16:21] LABS: INR 2.11
[2016-11-04 16:29] LABS: ANION GAP 9 MEQ/L (8-16); BLOOD UREA NITROGEN 15 MG/DL (7-18); CALCIUM LEVEL 8.7 MG/DL (8.8-10.2); CARBON DIOXIDE LEVEL 27 MEQ/L (21-32); CHLORIDE LEVEL 105 MEQ/L (98-107); CREATININE FOR GFR 1.15 MG/DL (0.70-1.30); GLOMERULAR FILTRATION RATE > 60.0 (>49); GLUCOSE, FASTING 104 MG/DL (80-110); POTASSIUM SERUM 4.2 MEQ/L (3.5-5.1); SODIUM LEVEL 141 MEQ/L (136-145)
== END ==
PROVIDERS: ATTEND Internal Medicine
DX: I48.91 Unspecified atrial fibrillation (principal)

== ENCOUNTER → 2016-11-11 | Outpatient (REF) ==
[2016-11-11 09:54] LABS: MEAN CORPUSCULAR HEMOGLOBIN 29.3 pg (27.0-33.0); MEAN CORPUSCULAR HGB CONC 31.5 g/dl (32.0-36.5); MEAN CORPUSCULAR VOLUME 92.9 fl (80.0-96.0); RED CELL DISTRIBUTION WIDTH 15.4 % (11.5-14.5); WHITE BLOOD COUNT 6.2 K/mm3 (4.0-10.0)
[2016-11-11 09:58] LABS: INR 1.6
[2016-11-11 10:11] LABS: ANION GAP 8 MEQ/L (8-16); BLOOD UREA NITROGEN 18 MG/DL (7-18); CALCIUM LEVEL 8.5 MG/DL (8.8-10.2); CARBON DIOXIDE LEVEL 29 MEQ/L (21-32); CHLORIDE LEVEL 103 MEQ/L (98-107); CREATININE FOR GFR 1.16 MG/DL (0.70-1.30); GLOMERULAR FILTRATION RATE > 60.0 (>49); GLUCOSE, FASTING 122 MG/DL (80-110); POTASSIUM SERUM 4.3 MEQ/L (3.5-5.1); SODIUM LEVEL 140 MEQ/L (136-145)
== END ==
PROVIDERS: ATTEND Internal Medicine
DX: D64.9 Anemia, unspecified (principal)

== ENCOUNTER → 2016-11-18 | Outpatient (REF) ==
[2016-11-18 10:37] LABS: INR 1.61
== END ==
PROVIDERS: ATTEND Internal Medicine
DX: Z79.01 Long term (current) use of anticoagulants (principal)

== ENCOUNTER → 2016-11-19 | Outpatient (REF) ==
[2016-11-19 11:26] LABS: ANION GAP 10 MEQ/L (8-16); BLOOD UREA NITROGEN 20 MG/DL (7-18); CALCIUM LEVEL 8.7 MG/DL (8.8-10.2); CARBON DIOXIDE LEVEL 28 MEQ/L (21-32); CHLORIDE LEVEL 101 MEQ/L (98-107); CREATININE FOR GFR 1.28 MG/DL (0.70-1.30); GLOMERULAR FILTRATION RATE > 60.0 (>49); GLUCOSE, FASTING 128 MG/DL (80-110); POTASSIUM SERUM 4.1 MEQ/L (3.5-5.1); SODIUM LEVEL 139 MEQ/L (136-145)
[2016-11-19 11:27] LABS: MEAN CORPUSCULAR HEMOGLOBIN 29.3 pg (27.0-33.0); MEAN CORPUSCULAR HGB CONC 31.5 g/dl (32.0-36.5); MEAN CORPUSCULAR VOLUME 92.9 fl (80.0-96.0); RED CELL DISTRIBUTION WIDTH 15.4 % (11.5-14.5); WHITE BLOOD COUNT 8.2 K/mm3 (4.0-10.0)
== END ==
PROVIDERS: ATTEND Internal Medicine
DX: D64.9 Anemia, unspecified (principal)

== ENCOUNTER → 2016-12-03 | Outpatient (REF) ==
[2016-12-03 10:16] LABS: MEAN CORPUSCULAR HGB CONC 30.7 g/dl (32.0-36.5); MEAN CORPUSCULAR VOLUME 94.4 fl (80.0-96.0); RED CELL DISTRIBUTION WIDTH 15.7 % (11.5-14.5); WHITE BLOOD COUNT 7.9 K/mm3 (4.0-10.0)
[2016-12-03 10:21] LABS: ANION GAP 7 MEQ/L (8-16); BLOOD UREA NITROGEN 21 MG/DL (7-18); CALCIUM LEVEL 8.9 MG/DL (8.8-10.2); CARBON DIOXIDE LEVEL 30 MEQ/L (21-32); CHLORIDE LEVEL 105 MEQ/L (98-107); CREATININE FOR GFR 1.14 MG/DL (0.70-1.30); GLOMERULAR FILTRATION RATE > 60.0 (>49); GLUCOSE, FASTING 124 MG/DL (80-110); POTASSIUM SERUM 4.4 MEQ/L (3.5-5.1); SODIUM LEVEL 142 MEQ/L (136-145)
== END ==
PROVIDERS: ATTEND Internal Medicine
DX: D64.9 Anemia, unspecified (principal)

== ENCOUNTER 2016-12-17 10:54 | Inpatient (IN) | payer OTHER ==
[~2016-12-17] VITALS: Ht 175.3 cm; Wt 111.1 kg
[~2016-12-17 10:54] MED LIST changes: +MYLASUS16 PO; -MYLASUS2 PO; -PARO40TA PO; +PARO40TA2 PO
[2016-12-17 11:22] LABS: BASO % 0.2 % (0.0-1.0); EOS # 0.1 K/mm3 (0.0-0.50); LARGE UNSTAINED CELL # 0.1 K/mm3 (0.0-0.4); LARGE UNSTAINED CELL % 0.5 % (0.0-4.0); LYMPH # 0.8 K/mm3 (1.5-4.5); LYMPH % 5.5 % (24.0-44.0); MEAN CORPUSCULAR HGB CONC 32.4 g/dl (32.0-36.5); MEAN CORPUSCULAR VOLUME 92.8 fl (80.0-96.0); MONO # 0.6 K/mm3 (0.0-0.8); MONO % 4.2 % (0.0-5.0); NEUTROPHILS # 11.8 K/mm3 (1.8-7.7); NEUTROPHILS % 88.6 % (36.0-66.0); PLATELET COUNT, AUTOMATED 323 k/mm3 (150-450); WHITE BLOOD COUNT 13.3 K/mm3 (4.0-10.0)
[2016-12-17 11:36] LABS: ALKALINE PHOSPHATASE 190 U/L (45-117); ALT/SGPT 75 U/L (12-78); ANION GAP 9 MEQ/L (8-16); AST/SGOT 69 U/L (15-37); BILIRUBIN,DIRECT 0.2 MG/DL (0.0-0.2); BILIRUBIN,TOTAL 0.5 MG/DL (0.2-1.0); BLOOD UREA NITROGEN 17 MG/DL (7-18); CALCIUM LEVEL 9.6 MG/DL (8.8-10.2); CARBON DIOXIDE LEVEL 27 MEQ/L (21-32); CHLORIDE LEVEL 100 MEQ/L (98-107); CREATININE FOR GFR 1.29 MG/DL (0.70-1.30); GLOMERULAR FILTRATION RATE > 60.0 (>49); GLUCOSE, FASTING 168 MG/DL (80-110); POTASSIUM SERUM 4.1 MEQ/L (3.5-5.1); SODIUM LEVEL 136 MEQ/L (136-145); TOTAL PROTEIN 9.1 GM/DL (6.4-8.2)
[2016-12-17 11:37] LABS: ALBUMIN 3.4 GM/DL (3.2-5.2)
[2016-12-17] MEDS ORDERED: OXYC10TA12 PO ×2 (11:42)
[2016-12-17] MEDS ORDERED: OXYC-423 PO (11:42)
[2016-12-17] MEDS ORDERED: ONDANSETRON 4MG/2ML VIAL (J2405) IV ONE (12:00)
[2016-12-17] MEDS ORDERED: NS 1,000 ML IV ONE (12:00)
[2016-12-17] MEDS ORDERED: ISOVUE-370 76% 100ML VIAL (Q9967) As Ordered ONE (12:07)
[2016-12-17] MEDS ORDERED: MORPHINE 4 MG/ML 1ML SYRINGE IV ONE ×2 (12:15→16:30)
[2016-12-17] MEDS ORDERED: fentaNYL 100 MCG/2 ML INJECTION (J3010) IV ONE (13:00)
--- NOTE | 2016-12-17 13:38 | REP ---
CT ABDOMEN AND PELVIS WITH IV CONTRAST: TECHNIQUE: Axial contrast enhanced images from the lung bases to the pubic symphysis using 100 mL Isovue 370 intravenous contrast material with multiplanar reformations. COMPARISON: 10/15/2016. The visualized lung bases appear clear with no acute infiltrate. There are mild fibrotic changes in the lungs. Liver again demonstrates diffuse fatty infiltration. The spleen, adrenals, and pancreas appear unremarkable and unchanged. There are bilateral renal cysts. There is mild left renal atrophy. There is no hydroureteronephrosis. There is resection of the distal abdominal aorta with blood flow seen down to just below the level of the renal arteries. At that location there are multiple metallic clips in the retroperitoneum. A graft is seen in the right flank supplying the common femoral arteries bilaterally. I see no adenopathy. There is no free air or free fluid. A right sided osteotomy is again seen. There is significant diastasis of the rectus muscles. Anteriorly there are multiple moderately dilated small bowel loops which again appear adherent to the anterior abdominal wall with areas of scarring and an apparent anterior abdominal wall fistula. A degree of dilatation is unchanged since the prior CT exam. Urinary bladder is grossly unremarkable. No pelvic mass is seen. Patient has had a cholecystectomy. IMPRESSION: Essentially no change in the multiple findings discussed in detail above. Dilated small bowel loops appear to be adherent to the anterior abdominal wall with postsurgical scarring and an apparent enterocutaneous fistula. The moderately dilated small bowel loops are most consistent with a partial small bowel obstruction. No new findings. Signed by Miguel Ángel Ruiz MD 12/17/2016 04:40 P
[2016-12-17] MEDS ORDERED: ERTAPENEM SODIUM 1 GM in NS MINI-BAG PLUS 50 ML IV ONE (14:30)
[2016-12-17] MEDS ORDERED: metroNIDAZOLE 500 MG in APPROPRIATE DILUENT 1 EA IV ONE (14:30)
[2016-12-17 15:06] LABS: INR 1.67
[2016-12-17] MEDS ORDERED: MORPHINE 2 MG/ML 1ML SYRINGE IV ONE (15:15)
--- NOTE | 2016-12-17 15:15 | REP ---
Chest one-view HISTORY: Abdominal pain Comparison: 10/21/2016 There is elevation of the right hemidiaphragm. The lungs are clear. The heart is normal in size. The pulmonary vasculature is normal in appearance. Impression: No acute disease. Signed by Gerardo Charlton MD 12/17/2016 03:06 P
[2016-12-17] MEDS ORDERED: OXYC1TAB55 PO (15:16)
--- NOTE | 2016-12-17 15:43 | CR.PDOC ---
[facility] Consultation Consultation 12/17/16 REFERRING PHYSICIAN/GENERAL SURGEON: Dr. Hi PCP: Rose INPATIENT HOSPITALIST DINING CAR WAITER/WAITRESS: Dr. Adrian Ryan REASON FOR CONSULT: medical management/preoperative medical clearance CC: Abdominal pain HPI: Patient is a 61 year old male, [facility] resident, with an extensive past medical history including spinal ischemia 2013 on chronic coumadin, stage 4 sacral pressure injuries followed by Dr. 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 He states he began to have abdominal pain described as achy, crampy, across the entire abdomen with no radiation, and persistent since last evening with some nausea and vomiting non bilious nonprojectile 2-3 times with decreased oral intake and no appetite. denies diarrhea or constipation via colostomy. no fevers/chills. no meds taken for the pain aside from his usual. He is a resident of [facility] and was transferred for eval. CT abd pelvis: SBO and fistula formation with lactic acid of 5.2. Patient was admitted under general surgery , Dr. Hi, with Hospitalist consult for medical management and preoperative medical clearance. He currently denies any chest pain, pressure, tightness, or shortness of breath, denies any prior history of coronary stents, congestive heart failure. EKG shows no acute ST changes, and CXR no acute cardiopulmonary process. Patient had a scheduled elective back surgery 1 year ago and had many complications since then. He has developed bacteremia with Staph epidermis and fungia. He has been put on antibiotics and antifungal agents since that point and still remains on them currently. Unfortunately the back surgery was not completed, because in the first phase of the surgery he had an extensive bleeding complication requiring repair of his aorta and multiple (25) units of PRBC transfusion. He later developed multiple systems failure and had a colonic preformation and a fistula, for which he has a colostomy and an ostomy Denies any fevers, chills, weakness, fatigue, WINTERS, CP, SOB, cough, palpitations, abdominal pain, N/V/D or changes in bowel or bladder habits. Upon presentation to the hospital the patient was found to have SBO, thus the hospitalist team was consulted to assist with medical management. 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 PE: GEN: 61yoM, appears stated age. Well-nourished, well developed. No acute distress. Alert and oriented x 3. Pleasant, interactive. HEENT: Normocephalic, atraumatic. Pupils are equal, round, and reactive to light. Extraocular movements are intact. No nystagmus appreciated. Sclera are nonicteric. Conjunctiva without injection. Nose midline. NG tube present. EACs both patent BL. TMs both visualized and mckeon with good cone of light, no bulging or erythema. No facial asymmetry. Dry mucous membranes. Dentition poor. Neck supple, trachea midline. No lymphadenopathy or thyromegaly appreciated. CHEST: Regular rate and rhythm, +S1, +S2 LUNGS: Clear to auscultation bilaterally. No wheezes, rales, or rhonchi. Breathing appears symmetric and easy. Patient is speaking in full sentences. No accessory muscle use. ABD: Distended, Colostomy and ostomy bags present. Multiple surgical scars EXT: Multiple scars LEs. No lower extremity edema appreciated. SKIN: [place], dry, warm. NEURO: Alert and oriented x 3. Cranial nerves III-XII are intact. No focal deficits appreciated. CT: Essentially no change in the multiple findings discussed in detail above. Dilated small bowel loops appear to be adherent to the anterior abdominal wall with postsurgical scarring and an apparent enterocutaneous fistula. The moderately dilated small bowel loops are most consistent with a partial small bowel obstruction. CXRNo acute disease. EKG: SR, RBBB, 95bpm. BLOOD CULTURES: pending A&P: Patient is a 61 year old paraplegic male, [facility] resident, with an extensive past medical history including spinal ischemia 2013 on chronic coumadin with a 10month hospitalization at [facility] due to opeartive aorto-iliac artery injury with abdominal compartment syndrome s/p fasciotomy, disseminated fungemia, multiorgan failure, stage 4 sacral pressure injuries followed by Dr. Silva [id number] at the wound center, Lumbar spondylosis with Lumbosacral joint disc disease,COPD, GERD, Chronic depression and anxiety, AL 08/2014, Pseudomonas osteomyelitis of sacrum, L4-S1 spinal stenosis, Cholecystitis s/p cholecystectomy, Anemia, Enterocutaneous fistula, Gastroparesis. He states he began to have abdominal pain described as achy, crampy, across the entire abdomen with no radiation, and persistent since last evening with some nausea and vomiting non bilious nonprojectile 2-3 times with decreased oral intake and no appetite. denies diarrhea or constipation via colostomy. no fevers/chills. no meds taken for the pain aside from his usual. He is a resident of [facility] and was transferred for eval. CT abd pelvis: SBO and fistula formation with lactic acid of 5.2. Patient was admitted under general surgery , Dr. Hi, with Hospitalist consult for medical management and preoperative medical clearance. He currently denies any chest pain, pressure, tightness, or shortness of breath, denies any prior history of coronary stents, congestive heart failure. EKG shows no acute ST changes, and CXR no acute cardiopulmonary process. 1. Preoperative medical clearance: The patient currently denies any acute ischemic symptoms of chest pain, pressure, tightness, heaviness, or shortness of breath, and despite prior history of NSTEMI in 2013 in the setting of multi- organ failure due to spinal ischemia sustained during a surgical procedure, his EKG has chronic RBBB without acute ischemic ST-T wave changes, and negative cardiac markers. CXR shows no pulmonary edema. At baseline, pt is paraplegic and unable to asses functional status. He is at moderate risk of a cardiac event but is medically optimized if patient requires emergent surgical intervantion. In preparation for possible surgical intervention, we will discontinue his coumadin, and place him on lovenox injections 1mg/kg sq q 12hourly to be 12hrs prior to any planned invasive procedures. NPO. IVF/ antibiotics/NGT as per surgery. 2. Small Bowel Obstruction with enteric fistula: surgical management per primary team. NPO. IV Fluids. IV invanz for gram negative coverage. Flagyl for anaerobic coverage. PRN intravenous morphine. Previous bowel obstruction in 10/[address] Morse. 3. Spinal ischemia 2013 with operative aorto-iliac injury and fasciotomy on chronic coumadin. Due to potential need for surgical intervention, coumadin will be held and patient will be placed on lovenox 1mg / kg sq [id number] or heparin iv gtt until small bowel obstruction resolves and pt is able to tolerate regular diet. 4. Small sacral pressure injury/chronic abdominal wounds due to ostomy leakage : managed by Dr. Silva as outpatient. will consult via telemedicine and continue with current regimen. air mattress and re-position [id number]. 5. History of fungemia. resume home dose of fluconazole 6. History of NSTEMI 2013 in the setting of severe sepsis and multiorgan failure due to operative aorto-iliac injury, abdominal compartment syndrome with fasciotomy, disseminated fungemia, currently without acute changes on EKG, chronic RBBB, negative cardiac markers. no acute ischemic complaints. NST 12/24- normal perfusion EF55% 7. GERD, chronic on protonix 8. COPD-FEV1 3.7 in 2007 9. ARON-intolerant of CPAP The patient is a Full code. Vital Signs/I&O Vital Signs Date Time Temp Pulse Resp B/P Pulse Ox O2 Delivery O2 Flow Rate FiO2 12/17/16 13:02 18 94 12/17/16 10:56 97.6 99 160/88 Room Air Laboratory Data Labs 24H Laboratory Tests 2 12/17/16 11:11: Activated Partial Thromboplast Time 33.8, Aspartate Amino Transf (AST/SGOT) 69H , Alanine Aminotransferase (ALT/SGPT) 75, Alkaline Phosphatase 190H, Total Bilirubin 0.5, Direct Bilirubin 0.2, Albumin 3.4, Albumin/Globulin Ratio 0.60L, Anion Gap 9, White Blood Count 13.3H, Red Blood Count 4.71, Hemoglobin 14.1, Hematocrit 43.7, Mean Corpuscular Volume 92.8, Mean Corpuscular Hemoglobin 30.0 , Mean Corpuscular Hemoglobin Concent 32.4, Red Cell Distribution Width 16.0H, Platelet Count 323, Neutrophils (%) (Auto) 88.6H, Lymphocytes (%) (Auto) 5.5L, Monocytes (%) (Auto) 4.2, Eosinophils (%) (Auto) 1.0, Basophils (%) (Auto) 0.2, Neutrophils # (Auto) 11.8H, Lymphocytes # (Auto) 0.8L, Monocytes # (Auto) 0.6, Eosinophils # (Auto) 0.1, Basophils # (Auto) 0.0, Calcium Level 9.6, Creatine Kinase MB 3.0, Creatine Kinase MB Relative Index 2.25, Glomerular Filtration Rate > 60.0, Lactic Acid Level 5.2*H, Large Unclassified Cells # 0.1, Large Unclassified Cells % 0.5, Lipase 103, Prothromb Time International Ratio 1.67, Prothrombin Time 19.8H, Total Creatine Kinase 133, Total Protein 9.1H, Troponin I < 0.02 12/17/16 14:45: Lactic Acid Level 3.2*H CBC/BMP Laboratory Tests 12/17/16 11:11 Red Blood Count 4.71, Mean Corpuscular Volume 92.8, Mean Corpuscular Hemoglobin 30.0, Mean Corpuscular Hemoglobin Concent 32.4, Red Cell Distribution Width 16.0 H, Neutrophils (%) (Auto) 88.6 H, Lymphocytes (%) (Auto) 5.5 L, Monocytes ( %) (Auto) 4.2, Eosinophils (%) (Auto) 1.0, Basophils (%) (Auto) 0.2, Neutrophils # (Auto) 11.8 H, Lymphocytes # (Auto) 0.8 L, Monocytes # (Auto) 0.6 , Eosinophils # (Auto) 0.1, Basophils # (Auto) 0.0 Microbiology Microbiology 12/17/16 Blood Culture, Received Pending Allergies Coded Allergies: No Known Drug Allergy (Verified Allergy, Unknown, 12/17/16) Bupropion (Unverified Adverse Reaction, Mild, AGITATION, INCREASED DEPRESSION, 12/20/12) Fluoxetine (Unverified Adverse Reaction, Mild, DEPRESSION, 12/20/12) Hydromorphone (Verified Adverse Reaction, Mild, HYPOGLYCEMIA, 12/20/12) Mirtazapine (Unverified Adverse Reaction, Mild, NIGHTMARES, 12/20/12) Oxymorphone (Verified Adverse Reaction, Mild, N/V, 12/20/12) Pregabalin (Unverified Adverse Reaction, Mild, INCONTINENCE, 12/20/12) Sertraline (Unverified Adverse Reaction, Mild, DIARRHEA,INCREASED DEPRESSION, 12/20/12) Home Medications Scheduled (Aquaphor) 1 Oin Oin 1 DOSE TOP 3XW (Reported) BID FRI, FRI, FRI - APPLY TO CHEST AND LEGS Amitriptyline HCl (Amitriptyline HCl) 25 Mg Tab 25 MG PO QHS (Reported) Doxycycline Hyclate (Doxycycline Hyclate) 100 Mg Tab 100 MG PO BID (Reported) Ferrous Sulfate (Ferrous Sulfate) 325 Mg Tab 325 MG PO DAILY (Reported) Fluconazole (Fluconazole) 200 Mg Tab 400 MG PO DAILY (Reported) Gabapentin (Gabapentin) 400 Mg Cap 400 MG PO TID (Reported) Multivitamins *[facility] STOCKED* (Thera M Plus *[facility] STOCKED*) 1 Tab Tab 1 TAB PO DAILY (Reported) Oxycodone HCl (Oxycodone HCl) 10 Mg Tab 10 MG PO DAILY (Reported) takes at 1400 Oxycodone HCl (Oxycodone HCl ER) 10 Mg Tab 10 MG PO BID (Reported) Pantoprazole Sodium (Pantoprazole Sodium) 40 Mg Tab 40 MG PO DAILY (Reported) Paroxetine (Paroxetine HCl) 40 Mg Tab 40 MG PO DAILY (Reported) nov from [facility] says PAXIL CR 40mg, doesnt come in that strength Pregabalin (Lyrica) 50 Mg Cap 50 MG PO BID (Reported) Warfarin Sod (Coumadin) 2 Mg Tab 2 MG PO 2XWK (Reported) QPM: friday & friday Warfarin Sod (Warfarin Sodium) 1 Mg Tab 1 MG PO 5XW (Reported) QPM: SUN,, WED, TH, SAT Zinc Sulfate (Zinc Sulfate) 220 Mg Tab 220 MG PO BID (Reported) Scheduled PRN Acetaminophen (Acetaminophen) 325 Mg Tab 650 MG PO Q4H PRN PRN PAIN / FEVER ( Reported) Albuterol Sulfate (Albuterol Sulfate) 2.5 Mg/0.5 Ml Neb 2.5 MG INH Q4H PRN PRN SHORTNESS OF BREATH (Reported) Metoclopramide HCl (Metoclopramide HCl) 5 Mg Tab 5 MG PO QID PRN PRN NAUSEA ( Reported) Milk Of Magnesia (Milk of Magnesia) 1,200 Mg/15 Ml Irene 30 ML PO DAILY PRN PRN CONSTIPATION (Reported) Oxycodone HCl (Oxycodone HCl) 10 Mg Tab 10 MG PO Q4HP PRN PRN PAIN (Reported) Josephine Elizabeth Dec 17, 2016 15:43 ELLIE GALINDO MD Dec 17, 2016 16:51
[2016-12-17] MEDS ORDERED: ACETAMINOPHEN 325 MG TAB PO PRN (15:45)
[2016-12-17] MEDS ORDERED: ALBUTEROL SULFATE 2.5 MG/0.5 ML INH NEB SOLN INH PRN (15:45)
[2016-12-17] MEDS ORDERED: MORPHINE 2 MG/ML 1ML SYRINGE IV PRN (15:45)
[2016-12-17] MEDS ORDERED: MOM 30ML SUSPENSION UDC PO PRN (16:45)
[2016-12-17] MEDS: LR 1,000 ML IV SCH ×2 (16:59→23:28)
[2016-12-17 18:00] VITALS: BP 140/60
[2016-12-17 18:40] VITALS: BP 140/60
[2016-12-17] MEDS: MORPHINE 4 MG/ML 1ML SYRINGE IV PRN ×2 (18:45→22:07)
[2016-12-17] MEDS: GABAPENTIN 400 MG CAP PO SCH ×2 (18:45→20:06)
[2016-12-17 19:02] LABS: BASO % 0.2 % (0.0-1.0); EOS # 0.1 K/mm3 (0.0-0.50); EOS % 0.7 % (0.0-3.0); LARGE UNSTAINED CELL # 0.1 K/mm3 (0.0-0.4); LYMPH # 1.3 K/mm3 (1.5-4.5); MEAN CORPUSCULAR HEMOGLOBIN 29.7 pg (27.0-33.0); MEAN CORPUSCULAR VOLUME 92.8 fl (80.0-96.0); MONO # 0.7 K/mm3 (0.0-0.8); MONO % 6.1 % (0.0-5.0); NEUTROPHILS # 9.9 K/mm3 (1.8-7.7); NEUTROPHILS % 81.9 % (36.0-66.0); PLATELET COUNT, AUTOMATED 311 k/mm3 (150-450); RED CELL DISTRIBUTION WIDTH 16.1 % (11.5-14.5); WHITE BLOOD COUNT 12.1 K/mm3 (4.0-10.0)
[2016-12-17 19:19] LABS: ANION GAP 8 MEQ/L (8-16); BLOOD UREA NITROGEN 17 MG/DL (7-18); CARBON DIOXIDE LEVEL 26 MEQ/L (21-32); CHLORIDE LEVEL 105 MEQ/L (98-107); CREATININE FOR GFR 1.06 MG/DL (0.70-1.30); GLOMERULAR FILTRATION RATE > 60.0 (>49); GLUCOSE, FASTING 112 MG/DL (80-110); POTASSIUM SERUM 4.2 MEQ/L (3.5-5.1); SODIUM LEVEL 139 MEQ/L (136-145)
[2016-12-17] MEDS: AMITRIPTYLINE 25 MG TAB PO SCH (20:05)
[2016-12-17] MEDS: SENOKOT S TAB PO SCH (20:05)
[2016-12-17] MEDS: AQUAPHOR **100GM** OINT TOP SCH (20:07)
[2016-12-17] MEDS: ENOXAPARIN 120 MG/0.8 ML SYR (J1650) SC SCH (20:07)
[2016-12-17] MEDS: KETOROLAC 30 MG/ML VIAL (J1885) IV PRN (20:12)
[2016-12-17 22:00] VITALS: BP 143/88
[2016-12-17] MEDS: metroNIDAZOLE 500 MG in APPROPRIATE DILUENT 1 EA IV SCH (23:28)
[2016-12-18] MEDS: MORPHINE 4 MG/ML 1ML SYRINGE IV PRN ×4 (01:24→20:58)
[2016-12-18] MEDS: KETOROLAC 30 MG/ML VIAL (J1885) IV PRN ×2 (04:42→14:43)
[2016-12-18 06:00] VITALS: BP 144/80
[2016-12-18] MEDS: LR 1,000 ML IV SCH ×4 (06:30→23:27)
[2016-12-18 07:22] LABS: MEAN CORPUSCULAR HEMOGLOBIN 29.4 pg (27.0-33.0); MEAN CORPUSCULAR HGB CONC 30.6 g/dl (32.0-36.5); PLATELET COUNT, AUTOMATED 238 k/mm3 (150-450)
[2016-12-18 07:58] LABS: EOSINOPHILS 4 % (0-5)
[2016-12-18] MEDS: FLUCONAZOLE 100 MG TAB PO SCH (09:02)
[2016-12-18] MEDS: GABAPENTIN 400 MG CAP PO SCH ×3 (09:02→20:56)
[2016-12-18] MEDS: metroNIDAZOLE 500 MG in APPROPRIATE DILUENT 1 EA IV SCH ×3 (09:02→23:27)
[2016-12-18] MEDS: FERROUS SULFATE 325MG TAB PO SCH (09:03)
[2016-12-18] MEDS: ENOXAPARIN 120 MG/0.8 ML SYR (J1650) SC SCH ×2 (09:03→20:57)
[2016-12-18] MEDS: SENOKOT S TAB PO SCH ×2 (09:03→20:56)
[2016-12-18] MEDS: PANTOPRAZOLE 40MG INJ (PROTONIX) (C9113) IV SCH (09:03)
[2016-12-18] MEDS: ERTAPENEM SODIUM 1 GM in NS MINI-BAG PLUS 50 ML IV SCH (09:04)
[2016-12-18] MEDS: AQUAPHOR **100GM** OINT TOP SCH ×2 (09:04→20:57)
[2016-12-18] MEDS ORDERED: MAGNESIUM CITRATE 300 ML BTL PO ONE (10:15)
--- NOTE | 2016-12-18 13:49 | IPNPDOC ---
Text Note Date of Service The patient was seen on 12/18/16. NOTE Subjective: Patient states his nausea and vomiting have resolved. No abdominal pain. Objective: Vitals: (see below) General: No acute distress, laying comfortably in bed. HEENT: Moist mucous membranes. Neck: No JVD or lymphadenopathy Cardiac: RRR, No murmurs Pulm: Clear to auscultation b/l. No wheezing, rhonchi Abd: NT/mild distention + BS. Excoriation around colostomy and ostomy bags. No induration. No pertinent drainage. Surgical scars. Ext: No edema or cyanosis. Lungs troponins. Labs (see below) Images: CT Abd/pelvis 12/17/16 IMPRESSION: Essentially no change in the multiple findings discussed in detail above. Dilated small bowel loops appear to be adherent to the anterior abdominal wall with postsurgical scarring and an apparent enterocutaneous fistula. The moderately dilated small bowel loops are most consistent with a partial small bowel obstruction. No new findings. Assessment/Plan 1. Small bowel obstruction with enteric fistula- NG tube placed. No nausea and vomiting. Management per surgery. On Invanz and Flagyl. Lactic acidosis resolved. Leukocytosis trending down. 2. Preoperative clearance performed by on 12/17/16 3. History of spinal ischemia in 2013 with operative aortoiliac injury and fasciotomy- on Coumadin at home; on Lovenox in the interim in case the patient needs surgery. 4. Sacral pressure entry/chronic abdominal wounds due to ostomy leak. Air mattress and reposition every [address] Silva onboard for wound care. 5. History of fungemia - on fluconazole 6. History of an NSTEMI in the setting of severe sepsis and multiorgan failure. No chest pain at this time. 7. GERD- on Protonix 8. COPD- stable 9. ARON - not tolerating CPAP DVT prophy: Lovenox VS,Fishbone, I+O VS, Fishbone, I+O Laboratory Tests 12/17/16 18:50 Calcium Level 9.0, Red Blood Count 4.34, Mean Corpuscular Volume 92.8, Mean Corpuscular Hemoglobin 29.7, Mean Corpuscular Hemoglobin Concent 32.0, Red Cell Distribution Width 16.1 H, Neutrophils (%) (Auto) 81.9 H, Lymphocytes (%) (Auto ) 10.0 L, Monocytes (%) (Auto) 6.1 H, Eosinophils (%) (Auto) 0.7, Basophils (%) (Auto) 0.2, Neutrophils # (Auto) 9.9 H, Lymphocytes # (Auto) 1.3 L, Monocytes # (Auto) 0.7, Eosinophils # (Auto) 0.1, Basophils # (Auto) 0.0 12/18/16 06:43 Red Blood Count 4.20 L, Mean Corpuscular Volume 96.0, Mean Corpuscular Hemoglobin 29.4, Mean Corpuscular Hemoglobin Concent 30.6 L, Red Cell Distribution Width 16.0 H, Neutrophils (%) (Auto) , Lymphocytes (%) (Auto) , Monocytes (%) (Auto) , Eosinophils (%) (Auto) , Basophils (%) (Auto) , Neutrophils # (Auto) , Lymphocytes # (Auto) , Monocytes # (Auto) , Eosinophils # (Auto) , Basophils # (Auto) Vital Signs Date Time Temp Pulse Resp B/P Pulse Ox O2 Delivery O2 Flow Rate FiO2 12/18/16 09:18 18 12/18/16 06:00 97.9 107 144/80 92 Room Air I&O- Last 24 Hours up to 6 AM 12/18/16 06:00 Intake Total 1250 ml Output Total 590 ml Balance 660 ml ROLAND HOROWITZ MD Dec 18, 2016 13:49
[2016-12-18 14:00] VITALS: BP 143/86
--- NOTE | 2016-12-18 15:52 | HPE ---
DATE OF ADMISSION: 12/17/2016 CHIEF COMPLAINT: Abdominal pain. HISTORY OF PRESENT ILLNESS: The patient is a 61-year-old male, had a history of multiple abdominal surgeries in the past, has a very large ventral hernia with enterocutaneous fistulas and a colostomy. He has had multiple admissions for partial small bowel obstruction in the past, most recently August and September. He presents again today after having increased abdominal distension, nausea and vomiting that started last evening. He still is having some significant pains in the abdomen. No change in output from his fistulas however, his ostomy has not produced anything in the last 6-12 hours. He had a nasogastric (NG) tube placed in the emergency room (ER) with a lot of bilious, thick output in it. His abdominal pain is improving slowly. No more nausea and vomiting since placement of the NG tube. No fevers or chills. No other changes since his last visit. PAST MEDICAL HISTORY: Lumbar spondylosis with lumbosacral joint disease, chronic obstructive pulmonary disease (COPD), gastroesophageal reflux disease, chronic depression, anxiety, myocardial infarction (SC) in 2013, candidiasis, Pseudomonas, osteomyelitis of the sacrum, spinal stenosis, history of cholecystitis, anemia, enterocutaneous fistula, gastroparesis. PAST SURGICAL HISTORY: Anterior L4-L5 discectomy, tracheostomy, aortobifemoral bypass graft, exploratory laparotomy with bowel resection and end colostomy. SOCIAL HISTORY: Denies drug, alcohol, or tobacco abuse. FAMILY HISTORY: Noncontributory. ALLERGIES: SERTRALINE, PREGABALIN, OXYMORPHONE, MIRTAZAPINE, HYDROMORPHONE, FLUOXETINE, BUPROPION. HOME MEDICATIONS: Please see medical record. REVIEW OF SYSTEMS: Pertinent positives and negatives as stated in the history of present illness (HPI). PHYSICAL EXAMINATION: GENERAL: Alert and oriented times three. No acute distress. VITAL SIGNS: Temperature 99.1, pulse 98, respirations 18, blood pressure 151/85, pulse oximetry 92% room air. HEENT: Pupils equal, round, reactive to light and accommodation. HEART: S1, S2, regular rate and rhythm. LUNGS: Clear to auscultation bilaterally. ABDOMEN: Soft, distended, tender to palpation diffusely. No signs of peritonitis. No rebounding or guarding. Bowel sounds diminished. There is a colostomy in the right lower abdomen with very thick stool in the bag. The ostomy itself was very pink, patent. There is a very large lower midline abdominal wound with multiple fistula openings draining some succus into a wound bag that has been placed and controlled by Dr. Silva. EXTREMITIES: Bilateral lower extremity pitting edema. LABORATORY DATA: White count 13.3, hemoglobin 14.1, platelets 323, lactic acid 5.2, potassium 4.1, creatinine 1.29, lipase 103. IMAGING STUDIES: CT abdomen and pelvis shows essentially no change in multiple findings from previous exam. There is dilated small bowel loops that appear to be adherent to the anterior abdominal wall with postsurgical scarring and an apparent enterocutaneous fistula. Mildly dilated small bowel loops are most consistent with partial small bowel obstruction. No new findings. ASSESSMENT/PLAN: The patient is a 61-year-old male with extensive abdominal surgery in the past who presents with a history of enterocutaneous fistula and colostomy and current findings of likely partial versus complete small bowel obstruction. This is likely secondary to adhesions and scarring inside the abdomen. We will give IV fluid hydration, monitor his lactic acidosis, monitor his white count and fevers. As long as these improve within the next few hours, he will be stable to be watched nonoperatively with NG tube, IV fluids and antibiotics. If, for some reason, his lactic acid remains elevated or white count increases or should develop fevers and he looks like he is going to need emergent surgery, then he will be transferred to [facility] where they have vascular surgery available in case they are needed during his extensive operation. For now we will monitor his labs with further recommendations to follow. Also, medicine team has been consulted to assist in his care. He will be placed on Lovenox for deep venous thrombosis (DVT) prophylaxis along with Protonix for gastrointestinal (GI) prophylaxis. He also will be restarted on his home medications for his depression.
[2016-12-18] MEDS ORDERED: NYSTATIN 100,000 UNITS/GM TOPICAL PWD 15 GM TOP PRN (17:30)
[2016-12-18] MEDS: AMITRIPTYLINE 25 MG TAB PO SCH (20:56)
--- NOTE | 2016-12-18 21:32 | ECGEPIP ---
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
[2016-12-18 22:00] VITALS: BP 140/62
[2016-12-19] MEDS: LR 1,000 ML IV SCH ×3 (05:51→20:37)
[2016-12-19 06:00] VITALS: BP 142/68
[2016-12-19] MEDS: MORPHINE 4 MG/ML 1ML SYRINGE IV PRN (06:11)
[2016-12-19 07:02] LABS: BASO % 0.4 % (0.0-1.0); EOS # 0.2 K/mm3 (0.0-0.50); EOS % 3.8 % (0.0-3.0); LARGE UNSTAINED CELL # 0.1 K/mm3 (0.0-0.4); LARGE UNSTAINED CELL % 2.2 % (0.0-4.0); LYMPH # 0.9 K/mm3 (1.5-4.5); LYMPH % 14.9 % (24.0-44.0); MEAN CORPUSCULAR HEMOGLOBIN 30.1 pg (27.0-33.0); MEAN CORPUSCULAR HGB CONC 31.5 g/dl (32.0-36.5); MEAN CORPUSCULAR VOLUME 95.5 fl (80.0-96.0); MONO # 0.4 K/mm3 (0.0-0.8); MONO % 6.4 % (0.0-5.0); NEUTROPHILS # 4.3 K/mm3 (1.8-7.7); NEUTROPHILS % 72.3 % (36.0-66.0); PLATELET COUNT, AUTOMATED 231 k/mm3 (150-450); RED CELL DISTRIBUTION WIDTH 16.2 % (11.5-14.5); WHITE BLOOD COUNT 5.9 K/mm3 (4.0-10.0)
[2016-12-19 07:04] LABS: ANION GAP 7 MEQ/L (8-16); BLOOD UREA NITROGEN 21 MG/DL (7-18); CALCIUM LEVEL 8.3 MG/DL (8.8-10.2); CARBON DIOXIDE LEVEL 28 MEQ/L (21-32); CHLORIDE LEVEL 106 MEQ/L (98-107); CREATININE FOR GFR 1.23 MG/DL (0.70-1.30); GLOMERULAR FILTRATION RATE > 60.0 (>49); GLUCOSE, FASTING 125 MG/DL (80-110); MAGNESIUM LEVEL 2.3 MG/DL (1.8-2.4); POTASSIUM SERUM 3.7 MEQ/L (3.5-5.1); SODIUM LEVEL 141 MEQ/L (136-145)
[2016-12-19] MEDS: ERTAPENEM SODIUM 1 GM in NS MINI-BAG PLUS 50 ML IV SCH (08:41)
[2016-12-19] MEDS: metroNIDAZOLE 500 MG in APPROPRIATE DILUENT 1 EA IV SCH (08:41)
[2016-12-19] MEDS: GABAPENTIN 400 MG CAP PO SCH ×3 (08:42→21:08)
[2016-12-19] MEDS: PANTOPRAZOLE 40MG INJ (PROTONIX) (C9113) IV SCH (08:42)
[2016-12-19] MEDS: ENOXAPARIN 120 MG/0.8 ML SYR (J1650) SC SCH ×2 (08:42→21:08)
[2016-12-19] MEDS: FERROUS SULFATE 325MG TAB PO SCH (08:42)
[2016-12-19] MEDS: SENOKOT S TAB PO SCH ×2 (08:42→21:08)
[2016-12-19] MEDS: FLUCONAZOLE 100 MG TAB PO SCH (08:42)
[2016-12-19] MEDS: AQUAPHOR **100GM** OINT TOP SCH ×2 (08:43→21:09)
[2016-12-19 14:00] VITALS: BP 146/76
--- NOTE | 2016-12-19 14:05 | IPNPDOC ---
Text Note Date of Service The patient was seen on 12/19/16. NOTE Subjective: Denies nausea and vomiting. Had a bowel movement. No abdominal pain. Objective: Vitals: (see below) General: No acute distress, laying comfortably in bed. HEENT: Moist mucous membranes. Neck: No JVD or lymphadenopathy Cardiac: RRR, No murmurs Pulm: Clear to auscultation b/l. No wheezing, rhonchi Abd: NT/mild distention + BS. Excoriation around colostomy and ostomy bags. No induration. No pertinent drainage. Surgical scars. Ext: No edema or cyanosis. Labs (see below) Images: CT Abd/pelvis 12/17/16 IMPRESSION: Essentially no change in the multiple findings discussed in detail above. Dilated small bowel loops appear to be adherent to the anterior abdominal wall with postsurgical scarring and an apparent enterocutaneous fistula. The moderately dilated small bowel loops are most consistent with a partial small bowel obstruction. No new findings. Assessment/Plan 1. Small bowel obstruction with enteric fistula- NG tube placed. No nausea and vomiting. Management per surgery. Status post Invanz/Flagyl. Lactic acidosis resolved. Leukocytosis trending down. Started on clears today. 2. Preoperative clearance performed by on 12/17/16 3. History of spinal ischemia in 2013 with operative aortoiliac injury and fasciotomy- on Coumadin at home; on Lovenox in the interim in case the patient needs surgery. 4. Sacral pressure entry/chronic abdominal wounds due to ostomy leak. Air mattress and reposition every [address] Silva onboard for wound care. 5. History of fungemia - on fluconazole 6. History of an NSTEMI in the setting of severe sepsis and multiorgan failure. No chest pain at this time. 7. GERD- on Protonix 8. COPD- stable 9. ARON - not tolerating CPAP DVT prophy: Lovenox VS,Fishbone, I+O VS, Fishbone, I+O Laboratory Tests 12/19/16 06:30 Calcium Level 8.3 L, Red Blood Count 3.80 L, Mean Corpuscular Volume 95.5, Mean Corpuscular Hemoglobin 30.1, Mean Corpuscular Hemoglobin Concent 31.5 L, Red Cell Distribution Width 16.2 H, Neutrophils (%) (Auto) 72.3 H, Lymphocytes (%) ( Auto) 14.9 L, Monocytes (%) (Auto) 6.4 H, Eosinophils (%) (Auto) 3.8 H, Basophils (%) (Auto) 0.4, Neutrophils # (Auto) 4.3, Lymphocytes # (Auto) 0.9 L, Monocytes # (Auto) 0.4, Eosinophils # (Auto) 0.2, Basophils # (Auto) 0.0 Vital Signs Date Time Temp Pulse Resp B/P Pulse Ox O2 Delivery O2 Flow Rate FiO2 12/19/16 06:30 17 Room Air 12/19/16 06:00 99.1 101 142/68 94 I&O- Last 24 Hours up to 6 AM 12/19/16 06:00 Intake Total 2990 ml Output Total 800 ml Balance 2190 ml ROLAND HOROWITZ MD Dec 19, 2016 14:05
[2016-12-19] MEDS: PREGABALIN 50 MG CAP (LYRICA) PO SCH ×2 (14:07→21:08)
[2016-12-19] MEDS: oxyCODONE 5MG TAB PO PRN ×2 (14:08→21:10)
[2016-12-19] MEDS: AMITRIPTYLINE 25 MG TAB PO SCH (21:08)
[2016-12-19] MEDS: CARBAMIDE PEROXIDE 6.5% OTIC SOLN 15ML AU SCH (21:09)
[2016-12-19 22:00] VITALS: BP 141/72
[2016-12-20] MEDS: LR 1,000 ML IV SCH ×2 (03:14→09:25)
[2016-12-20 06:00] VITALS: BP 142/79
[2016-12-20 06:47] LABS: BASO % 0.5 % (0.0-1.0); EOS # 0.3 K/mm3 (0.0-0.50); LARGE UNSTAINED CELL # 0.1 K/mm3 (0.0-0.4); LARGE UNSTAINED CELL % 2.5 % (0.0-4.0); LYMPH # 1.1 K/mm3 (1.5-4.5); LYMPH % 17.2 % (24.0-44.0); MEAN CORPUSCULAR HEMOGLOBIN 29.3 pg (27.0-33.0); MEAN CORPUSCULAR HGB CONC 31.2 g/dl (32.0-36.5); MEAN CORPUSCULAR VOLUME 93.9 fl (80.0-96.0); MONO # 0.4 K/mm3 (0.0-0.8); MONO % 6.9 % (0.0-5.0); NEUTROPHILS # 3.8 K/mm3 (1.8-7.7); PLATELET COUNT, AUTOMATED 238 k/mm3 (150-450); RED CELL DISTRIBUTION WIDTH 16.1 % (11.5-14.5); WHITE BLOOD COUNT 5.5 K/mm3 (4.0-10.0)
[2016-12-20 07:01] LABS: ANION GAP 9 MEQ/L (8-16); BLOOD UREA NITROGEN 17 MG/DL (7-18); CALCIUM LEVEL 8.3 MG/DL (8.8-10.2); CARBON DIOXIDE LEVEL 28 MEQ/L (21-32); CHLORIDE LEVEL 105 MEQ/L (98-107); CREATININE FOR GFR 1.13 MG/DL (0.70-1.30); GLOMERULAR FILTRATION RATE > 60.0 (>49); GLUCOSE, FASTING 101 MG/DL (80-110); MAGNESIUM LEVEL 2.1 MG/DL (1.8-2.4); POTASSIUM SERUM 3.6 MEQ/L (3.5-5.1); SODIUM LEVEL 142 MEQ/L (136-145)
[2016-12-20] MEDS: ENOXAPARIN 120 MG/0.8 ML SYR (J1650) SC SCH (09:05)
[2016-12-20] MEDS: GABAPENTIN 400 MG CAP PO SCH (09:06)
[2016-12-20] MEDS: PREGABALIN 50 MG CAP (LYRICA) PO SCH (09:06)
[2016-12-20] MEDS: FERROUS SULFATE 325MG TAB PO SCH (09:06)
[2016-12-20] MEDS: PANTOPRAZOLE 40MG INJ (PROTONIX) (C9113) IV SCH (09:06)
[2016-12-20] MEDS: SENOKOT S TAB PO SCH (09:07)
[2016-12-20] MEDS: FLUCONAZOLE 100 MG TAB PO SCH (09:07)
[2016-12-20] MEDS: AQUAPHOR **100GM** OINT TOP SCH (09:08)
[2016-12-20] MEDS: CARBAMIDE PEROXIDE 6.5% OTIC SOLN 15ML AU SCH (09:08)
--- NOTE | 2016-12-20 11:29 | IPNPDOC ---
Text Note Date of Service The patient was seen on 12/20/16. NOTE Subjective: Denies nausea and vomiting. Had a bowel movement. No abdominal pain. Tolerating clear diet. Objective: Vitals: (see below) General: No acute distress, laying comfortably in bed. HEENT: Moist mucous membranes. Neck: No JVD or lymphadenopathy Cardiac: RRR, No murmurs Pulm: Clear to auscultation b/l. No wheezing, rhonchi Abd: NT/mild distention + BS. Excoriation around colostomy and ostomy bags. No induration. No pertinent drainage. Surgical scars. Ext: No edema or cyanosis. Labs (see below) Images: CT Abd/pelvis 12/17/16 IMPRESSION: Essentially no change in the multiple findings discussed in detail above. Dilated small bowel loops appear to be adherent to the anterior abdominal wall with postsurgical scarring and an apparent enterocutaneous fistula. The moderately dilated small bowel loops are most consistent with a partial small bowel obstruction. No new findings. Assessment/Plan 1. Small bowel obstruction with enteric fistula- NG tube in placed. No nausea and vomiting. Management per surgery. Status post Invanz/Flagyl. Lactic acidosis resolved. Leukocytosis trending down. Tolerating clears. 2. Preoperative clearance performed by on 12/17/16 3. History of spinal ischemia in 2013 with operative aortoiliac injury and fasciotomy- on Coumadin at home; on Lovenox in the interim in case the patient needs surgery. 4. Sacral pressure entry/chronic abdominal wounds due to ostomy leak. Air mattress and reposition every [address] Silva onboard for wound care. 5. History of fungemia - on fluconazole 6. History of an NSTEMI in the setting of severe sepsis and multiorgan failure. No chest pain at this time. 7. GERD- on Protonix 8. COPD- stable 9. ARON - not tolerating CPAP DVT prophy: Lovenox VS,Fishbone, I+O VS, Fishbone, I+O Laboratory Tests 12/20/16 06:34 Calcium Level 8.3 L, Red Blood Count 3.63 L, Mean Corpuscular Volume 93.9, Mean Corpuscular Hemoglobin 29.3, Mean Corpuscular Hemoglobin Concent 31.2 L, Red Cell Distribution Width 16.1 H, Neutrophils (%) (Auto) 68.0 H, Lymphocytes (%) ( Auto) 17.2 L, Monocytes (%) (Auto) 6.9 H, Eosinophils (%) (Auto) 5.0 H, Basophils (%) (Auto) 0.5, Neutrophils # (Auto) 3.8, Lymphocytes # (Auto) 1.1 L, Monocytes # (Auto) 0.4, Eosinophils # (Auto) 0.3, Basophils # (Auto) 0.0 Vital Signs Date Time Temp Pulse Resp B/P Pulse Ox O2 Delivery O2 Flow Rate FiO2 12/20/16 06:00 96.8 71 19 142/79 92 Room Air I&O- Last 24 Hours up to 6 AM 12/20/16 06:00 Intake Total 2395 ml Output Total 800 ml Balance 1595 ml ROLAND HOROWITZ MD Dec 20, 2016 11:29
== END 2016-12-20 13:42 | DRG 247 ==
LOC: EDBD 10:54 → M ED 12:04 → M ED INP 16:42 → M MSPAV 18:31
PROVIDERS: ADMIT Surgery; ATTEND Surgery
DX: K56.5 Intestinal adhesions [bands] with obstruction (postinfection) (principal); L89.153 Pressure ulcer of sacral region, stage 3; K63.2 Fistula of intestine; E87.2 Acidosis; J44.9 Chronic obstructive pulmonary disease, unspecified; M43.16 Spondylolisthesis, lumbar region; K21.9 Gastro-esophageal reflux disease without esophagitis; G47.33 Obstructive sleep apnea (adult) (pediatric); F32.9 Major depressive disorder, single episode, unspecified; F41.9 Anxiety disorder, unspecified; I25.2 Old myocardial infarction; D64.9 Anemia, unspecified; Z88.5 Allergy status to narcotic agent; Z88.8 Allergy status to other drugs, medicaments and biological substances; Z79.01 Long term (current) use of anticoagulants; Z79.891 Long term (current) use of opiate analgesic

== ENCOUNTER → 2016-12-24 | Outpatient (REF) ==
[~2016-12-24] MED LIST changes: +OXYC10TA12 PO; +OXYC1TAB55 PO
[2016-12-24 11:29] LABS: MEAN CORPUSCULAR HGB CONC 30.6 g/dl (32.0-36.5); MEAN CORPUSCULAR VOLUME 94.5 fl (80.0-96.0); RED CELL DISTRIBUTION WIDTH 16.2 % (11.5-14.5); WHITE BLOOD COUNT 9.1 K/mm3 (4.0-10.0)
[2016-12-24 11:57] LABS: ANION GAP 8 MEQ/L (8-16); BLOOD UREA NITROGEN 10 MG/DL (7-18); CALCIUM LEVEL 8.6 MG/DL (8.8-10.2); CARBON DIOXIDE LEVEL 29 MEQ/L (21-32); CHLORIDE LEVEL 104 MEQ/L (98-107); CREATININE FOR GFR 1.02 MG/DL (0.70-1.30); GLOMERULAR FILTRATION RATE > 60.0 (>49); GLUCOSE, FASTING 104 MG/DL (80-110); POTASSIUM SERUM 3.9 MEQ/L (3.5-5.1); SODIUM LEVEL 141 MEQ/L (136-145)
== END ==
PROVIDERS: ATTEND Internal Medicine
DX: I10 Essential (primary) hypertension (principal); I48.91 Unspecified atrial fibrillation

== ENCOUNTER → 2016-12-31 | Outpatient (REF) ==
[2016-12-31 11:11] LABS: MEAN CORPUSCULAR HEMOGLOBIN 28.6 pg (27.0-33.0); MEAN CORPUSCULAR HGB CONC 30.1 g/dl (32.0-36.5); RED CELL DISTRIBUTION WIDTH 16.1 % (11.5-14.5); WHITE BLOOD COUNT 8.6 K/mm3 (4.0-10.0)
[2016-12-31 11:24] LABS: ANION GAP 7 MEQ/L (8-16); BLOOD UREA NITROGEN 17 MG/DL (7-18); CALCIUM LEVEL 8.9 MG/DL (8.8-10.2); CARBON DIOXIDE LEVEL 30 MEQ/L (21-32); CHLORIDE LEVEL 105 MEQ/L (98-107); CREATININE FOR GFR 1.06 MG/DL (0.70-1.30); GLOMERULAR FILTRATION RATE > 60.0 (>49); GLUCOSE, FASTING 113 MG/DL (80-110); POTASSIUM SERUM 4.4 MEQ/L (3.5-5.1); SODIUM LEVEL 142 MEQ/L (136-145)
== END ==
PROVIDERS: ATTEND Internal Medicine
DX: I10 Essential (primary) hypertension (principal); I48.91 Unspecified atrial fibrillation

== ENCOUNTER → 2017-01-14 | Outpatient (REF) ==
[2017-01-14 12:03] LABS: ANION GAP 10 MEQ/L (8-16); BLOOD UREA NITROGEN 17 MG/DL (7-18); CALCIUM LEVEL 9.2 MG/DL (8.8-10.2); CARBON DIOXIDE LEVEL 28 MEQ/L (21-32); CHLORIDE LEVEL 102 MEQ/L (98-107); CREATININE FOR GFR 1.18 MG/DL (0.70-1.30); GLOMERULAR FILTRATION RATE > 60.0 (>49); GLUCOSE, FASTING 125 MG/DL (80-110); POTASSIUM SERUM 4.3 MEQ/L (3.5-5.1); SODIUM LEVEL 140 MEQ/L (136-145)
[2017-01-14 13:19] LABS: MEAN CORPUSCULAR HEMOGLOBIN 30.3 pg (27.0-33.0); MEAN CORPUSCULAR HGB CONC 31.1 g/dl (32.0-36.5); MEAN CORPUSCULAR VOLUME 97.5 fl (80.0-96.0); RED CELL DISTRIBUTION WIDTH 15.8 % (11.5-14.5); WHITE BLOOD COUNT 6.6 K/mm3 (4.0-10.0)
== END ==
PROVIDERS: ATTEND Internal Medicine
DX: I10 Essential (primary) hypertension (principal); I48.91 Unspecified atrial fibrillation

== ENCOUNTER → 2017-02-19 | Outpatient (REF) ==
[2017-02-19 18:34] LABS: MEAN CORPUSCULAR HEMOGLOBIN 29.4 pg (27.0-33.0); MEAN CORPUSCULAR HGB CONC 30.4 g/dl (32.0-36.5); MEAN CORPUSCULAR VOLUME 96.6 fl (80.0-96.0); WHITE BLOOD COUNT 9.6 K/mm3 (4.0-10.0)
[2017-02-19 19:05] LABS: ANION GAP 12 MEQ/L (8-16); BLOOD UREA NITROGEN 19 MG/DL (7-18); CALCIUM LEVEL 9.4 MG/DL (8.8-10.2); CARBON DIOXIDE LEVEL 27 MEQ/L (21-32); CHLORIDE LEVEL 98 MEQ/L (98-107); CREATININE FOR GFR 1.24 MG/DL (0.70-1.30); GLOMERULAR FILTRATION RATE > 60.0 (>49); GLUCOSE, FASTING 137 MG/DL (80-110); POTASSIUM SERUM 4.3 MEQ/L (3.5-5.1); SODIUM LEVEL 137 MEQ/L (136-145)
== END ==
PROVIDERS: ATTEND Internal Medicine
DX: I10 Essential (primary) hypertension (principal)

== ENCOUNTER 2017-04-18 14:49 | Emergency (ER) | payer OTHER ==
[~2017-04-18] VITALS: Ht 175.3 cm; Wt 114.5 kg
[~2017-04-18 14:49] MED LIST changes: -CERTTAB3; -CERTTAB3 PO; -FERR325T3 PO; -GABA600T PO; -GABA800T PO; -HYDR2TAB2 PO; -OXYC-141 PO; -OXYC1TAB23 PO; -TYLE325T5 PO
[2017-04-18 15:57] LABS: BASO % 0.6 % (0.0-1.0); EOS # 0.3 K/mm3 (0.0-0.50); EOS % 3.9 % (0.0-3.0); LARGE UNSTAINED CELL # 0.2 K/mm3 (0.0-0.4); LARGE UNSTAINED CELL % 2.8 % (0.0-4.0); LYMPH # 1.4 K/mm3 (1.5-4.5); LYMPH % 12.9 % (24.0-44.0); MEAN CORPUSCULAR HEMOGLOBIN 29.5 pg (27.0-33.0); MEAN CORPUSCULAR HGB CONC 31.6 g/dl (32.0-36.5); MEAN CORPUSCULAR VOLUME 93.2 fl (80.0-96.0); MONO # 0.6 K/mm3 (0.0-0.8); MONO % 6.3 % (0.0-5.0); NEUTROPHILS # 6.5 K/mm3 (1.8-7.7); NEUTROPHILS % 73.5 % (36.0-66.0); PLATELET COUNT, AUTOMATED 335 k/mm3 (150-450); RED CELL DISTRIBUTION WIDTH 15.5 % (11.5-14.5); WHITE BLOOD COUNT 8.8 K/mm3 (4.0-10.0)
[2017-04-18 16:09] LABS: ANION GAP 9 MEQ/L (8-16); BLOOD UREA NITROGEN 15 MG/DL (7-18); CALCIUM LEVEL 8.8 MG/DL (8.8-10.2); CARBON DIOXIDE LEVEL 25 MEQ/L (21-32); CHLORIDE LEVEL 105 MEQ/L (98-107); CREATININE FOR GFR 1.25 MG/DL (0.70-1.30); GLOMERULAR FILTRATION RATE > 60.0 (>49); GLUCOSE, FASTING 239 MG/DL (80-110); POTASSIUM SERUM 4.2 MEQ/L (3.5-5.1); SODIUM LEVEL 139 MEQ/L (136-145)
[2017-04-18 16:11] LABS: INR 7.86
[2017-04-18] MEDS ORDERED: MORPHINE 4 MG/ML 1ML SYRINGE IV ONE (16:45)
[2017-04-18 17:20] LABS: ALBUMIN 2.8 GM/DL (3.2-5.2); ALBUMIN/GLOBULIN RATIO 0.56 (1.00-1.93); BILIRUBIN,DIRECT 0.1 MG/DL (0.0-0.2); BILIRUBIN,TOTAL 0.3 MG/DL (0.2-1.0); TOTAL PROTEIN 7.8 GM/DL (6.4-8.2)
[2017-04-18 18:24] VITALS: BP 124/71
[2017-04-19] MEDS ORDERED: OXYC1TAB23 PO ×2 (16:07→18:32)
[2017-04-19] MEDS ORDERED: GABA600T PO (18:27)
[2017-04-19] MEDS ORDERED: PREG50CA PO (18:32)
[2017-04-19] MEDS ORDERED: MILKSUS PO (18:32)
[2017-04-19] MEDS ORDERED: CERTTAB3 PO (18:32)
[2017-04-19] MEDS ORDERED: OXYC-141 PO (18:32)
[2017-04-19] MEDS ORDERED: AMIT25TA PO (18:32)
== END 2017-04-18 18:52 | disposition home or self-care (01) ==
LOC: EDUNIT# 14:49 → EDBD 14:49 → M ED 14:49
DX: R79.1 Abnormal coagulation profile (principal); K92.2 Gastrointestinal hemorrhage, unspecified; Z72.0 Tobacco use; Z79.01 Long term (current) use of anticoagulants

== ENCOUNTER → 2017-04-18 | Outpatient (REF) | payer OTHER ==
[~2017-04-18] MED LIST changes: -ACET-654 PO; +ACET1TAB17 PO; +CERTTAB3; +CERTTAB3 PO; -COUM2TAB10 PO; +COUM2TAB22 PO; +FERR1TAB8 PO; -FERR325T PO; +FERR325T3 PO; +GABA600T PO; +GABA800T PO; +HYDR2TAB2 PO; -NYST100024 TOP; +NYST1POW9 TOP; +OXYC-141 PO; +OXYC-403 PO; +OXYC1TAB23 PO; -OXYC1TAB55 PO; -OXYC20TA21 PO; +OXYC20TA40 PO; +PERC5TAB12 PO; -PERC5TAB6 PO; +TYLE325T5 PO
[2017-04-18 13:43] LABS: INR 7.29
== END ==
LOC: M LAB REF 11:52
PROVIDERS: ATTEND Family Medicine
DX: K63.2 Fistula of intestine (principal)

== ENCOUNTER 2017-04-19 15:51 | Inpatient (IN) | payer OTHER ==
[~2017-04-19] VITALS: Ht 175.3 cm; Wt 114.5 kg
[2017-04-19] MEDS ORDERED: OXYC1TAB23 PO ×2 (16:07→18:32)
[2017-04-19] MEDS ORDERED: MORPHINE 4 MG/ML 1ML SYRINGE SC ONE (16:30)
[2017-04-19 17:31] LABS: INR 7.47
[2017-04-19] MEDS ORDERED: PHYTONADIONE 5 MG TAB PO ONE ×2 (17:45→19:00)
[2017-04-19] MEDS ORDERED: GABA600T PO (18:27)
[2017-04-19] MEDS ORDERED: AMIT25TA PO (18:32)
[2017-04-19] MEDS ORDERED: OXYC-141 PO (18:32)
[2017-04-19] MEDS ORDERED: PREG50CA PO (18:32)
[2017-04-19] MEDS ORDERED: MILKSUS PO (18:32)
[2017-04-19] MEDS ORDERED: CERTTAB3 PO (18:32)
[2017-04-19] MEDS ORDERED: MORPHINE 2 MG/ML 1ML SYRINGE IV PRN (18:45)
[2017-04-19] MEDS ORDERED: MOM 30ML SUSPENSION UDC PO PRN (18:45)
[2017-04-19] MEDS: GABAPENTIN 300 MG CAP PO SCH (20:48)
[2017-04-19] MEDS: PREGABALIN 50 MG CAP (LYRICA) PO SCH (20:48)
[2017-04-19] MEDS: oxyCODONE 10 MG CR TAB PO SCH (20:49)
[2017-04-19 22:00] VITALS: BP 114/67
[2017-04-19] MEDS: MORPHINE 4 MG/ML 1ML SYRINGE IV PRN (22:00)
[2017-04-20] MEDS: MORPHINE 4 MG/ML 1ML SYRINGE IV PRN ×2 (05:20→09:11)
[2017-04-20 06:00] VITALS: BP 139/91
[2017-04-20 07:47] LABS: MEAN CORPUSCULAR HEMOGLOBIN 28.9 pg (27.0-33.0); MEAN CORPUSCULAR HGB CONC 30.8 g/dl (32.0-36.5); MEAN CORPUSCULAR VOLUME 93.8 fl (80.0-96.0); RED CELL DISTRIBUTION WIDTH 15.6 % (11.5-14.5); WHITE BLOOD COUNT 8.2 K/mm3 (4.0-10.0)
[2017-04-20 08:05] LABS: ANION GAP 10 MEQ/L (8-16); BLOOD UREA NITROGEN 16 MG/DL (7-18); CALCIUM LEVEL 8.6 MG/DL (8.8-10.2); CARBON DIOXIDE LEVEL 25 MEQ/L (21-32); CHLORIDE LEVEL 103 MEQ/L (98-107); CREATININE FOR GFR 1.23 MG/DL (0.70-1.30); GLOMERULAR FILTRATION RATE > 60.0 (>49); GLUCOSE, FASTING 223 MG/DL (80-110); SODIUM LEVEL 138 MEQ/L (136-145)
[2017-04-20] MEDS: OCUVITE 1 TAB PO SCH (09:00)
[2017-04-20] MEDS: PANTOPRAZOLE 40MG TAB (PROTONIX) PO SCH (09:00)
[2017-04-20] MEDS: GABAPENTIN 400 MG CAP PO SCH (09:09)
[2017-04-20] MEDS: PREGABALIN 50 MG CAP (LYRICA) PO SCH ×2 (09:09→20:12)
[2017-04-20] MEDS: AQUAPHOR **100GM** OINT TOP SCH (09:09)
[2017-04-20] MEDS: PARoxetine 20 MG TAB PO SCH (09:09)
[2017-04-20] MEDS: FLUCONAZOLE 100 MG TAB PO SCH (09:09)
[2017-04-20] MEDS: AMITRIPTYLINE 25 MG TAB PO SCH (09:09)
[2017-04-20 09:34] LABS: INR 6.42
[2017-04-20] MEDS ORDERED: PHYTONADIONE 5 MG TAB PO ONE (11:45)
[2017-04-20] MEDS: PERCOCET 5MG/325MG TAB PO PRN ×2 (12:24→18:27)
[2017-04-20 14:00] VITALS: BP 126/82
[2017-04-20] MEDS: GABAPENTIN 300 MG CAP PO SCH ×2 (14:53→20:12)
--- NOTE | 2017-04-20 17:44 | IPNPDOC ---
Subjective Date Seen The patient was seen on 04/20/17. Subjective Chief Complaint/HPI The patient is a 62-year-old male admitted with a reason for visit of Adverse Efect Of Anticoagulant Gi Bleed. Events since last encounter Patient was sleeping comfortably this morning and immediately upon waking asked for pain medication. He states that his right foot and sacrum are still very sore - this is chronic for him. Constitutional: Denies: Chills, Fever ENT: Denies: Head Aches Skin: Reports: Breakdown (sacrum and right foot) Pulmonary: Denies: Dyspnea, Cough Cardiovascular: Denies: Chest Pain, Palpitations Gastrointestinal: Reports: Other Symptoms (red-dark output from fistula less red than yesterday), Denies: Nausea, Vomiting, Abdominal Pain Genitourinary: Denies: Dysuria Musculoskeletal: Reports: Back Pain (chronic), Denies: Neck Pain Neurological: Reports: Numbness (right foot chronically) Psych: Reports: Mood Normal Objective Physical Examination General Exam: Positive: Alert, Cooperative, No Acute Distress ENT Exam: Positive: Atraumatic, Mucous membr. moist/pink Chest Exam: Positive: Clear to auscultation, Normal air movement Heart Exam: Positive: Rate Normal, Regular Rhythm, Normal S1, Normal S2 Abdomen Exam: Positive: Soft, Other (enterocutaneous fistula with thin red- brown fluid in bag; colostomy does not appear grossly bloody) Psych Exam: Positive: Mental status NL, Mood NL, Oriented x 3 Assessment /Plan Problems (1) Elevated INR Status: Acute Response to Treatment: Improving Problem Text: INR better today but still supratherapeutic. Received oral vitamin K 7.5 mg in ED; give 10 mg this am. Continue to hold warfarin. Fluid in fistula bag appears less bloody. Recheck PT/INR in the morning. Cause of supratherapeutic INR is unclear; no new medications that would interact. Discharged from [facility] 2 weeks ago and states his diet has changed significantly since then. (2) Decubitus ulcer, heel Status: Chronic Response to Treatment: Stable Problem Text: Patient is c/o pain - this is chronic. Chronic pain medications have been continued (oxycontin, scheduled Percocet, PRN percocet). (3) Sacral decubitus ulcer Status: Chronic Problem Text: Chronic; main cause of patient's pain. Chronic pain medications continued. Follows with Dr. Silva and has outpatient follow-up scheduled for 04/30/17. (4) GI bleed Status: Acute Problem Text: from enterocutaneous fistula site. See above. (5) History of disseminated candidiasis Permanent Comment: REQUIRES LIFELONG DIFLUCAN Last Edited By: Judy Key DO on Sep 09, 2015 14:35 Status: Chronic Plan/VTE VTE Prophylaxis Ordered?: No (INR supratherapeutic) VS, I&O, 24H, Fishbone Vital Signs/I&O Vital Signs Date Time Temp Pulse Resp B/P (MAP) Pulse Ox O2 Delivery O2 Flow Rate FiO2 04/20/17 14:00 98.4 85 16 126/82 (97) 95 Room Air I&O- Last 24 Hours up to 6 AM 04/20/17 06:00 Intake Total 720 ml Output Total 150 ml Balance 570 ml Laboratory Data 24H LABS Laboratory Tests 2 04/20/17 06:09: Prothrombin Time 60.3H, Prothromb Time International Ratio 6.42*H, Anion Gap 10 , Glomerular Filtration Rate > 60.0, Blood Urea Nitrogen 16, Creatinine 1.23, Sodium Level 138, Potassium Level 4.0, Chloride Level 103, Carbon Dioxide Level 25, Calcium Level 8.6L CBC/BMP Laboratory Tests 04/20/17 06:09 Red Blood Count 3.88 L, Mean Corpuscular Volume 93.8, Mean Corpuscular Hemoglobin 28.9, Mean Corpuscular Hemoglobin Concent 30.8 L, Red Cell Distribution Width 15.6 H, Calcium Level 8.6 L KAVITHA ARCE MD Apr 20, 2017 17:44
[2017-04-20] MEDS: oxyCODONE 10 MG CR TAB PO SCH (20:13)
[2017-04-20 22:00] VITALS: BP 126/64
--- NOTE | 2017-04-20 22:18 | HPE ---
DATE OF ADMISSION: 04/19/2017 PRIMARY CARE PHYSICIAN: Dr. Theodore Christy CHIEF COMPLAINT: Elevated INR and bleeding from enterocutaneous fistula. HISTORY OF PRESENT ILLNESS: This is a 62-year-old man with complicated medical history, including multiple abdominal surgeries, who has a chronic colostomy as well as multiple enterocutaneous fistulas with a fistula bag who presented with an elevated INR of >7 for the past 3 days and kenji blood in his fistula bag. Patient was recently discharged from [facility] approximately 2 weeks ago. He is chronically on warfarin for a history of an [id number] graft. On 04/18/2017 he was found to have an elevated INR and was sent to the emergency department. His INR at that time was 7.86. He had no active bleeding at that time, and so he was discharged home. Today he noticed increased bleeding from his enterocutaneous fistula. His is at bedside and states he does occasionally have bleeding from his fistula site, but this is more blood than usual. His hemoglobin on the day prior to admission was 11.8 and on the day of admission was 11.6. He denies any lightheadedness, palpitations, or generalized weakness or fatigue. He has chronic wounds on his right dorsal foot, right heel, and he has a chronic stage III sacral pressure ulcer that is followed by Dr. Silva. Today his primary complaint is pain in his foot and at the site of his sacral ulcer. PAST MEDICAL HISTORY: 1. Coronary artery disease. 2. Hyperlipidemia. 3. Peripheral arterial disease. 4. Chronic obstructive pulmonary disease (COPD) and emphysema with a history of smoking. 5. Obstructive sleep apnea. 6. Gastroesophageal reflux disease (GERD). 7. Depression and anxiety. 8. Vitamin D deficiency. 9. Degenerative disc disease of lumbosacral spine. 10. History of perforated iliac veins and aorta during lumbar laminectomy in 2013. 11. Ischemia of lower extremities with compartment syndrome requiring bilateral four-compartment fasciotomies. 12. History of infected aortobi-iliac grafts. 13. 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 15. History of zinc-deficiency dermatitis. 16. History of prolonged intensive care unit (ICU) hospitalization with mechanical ventilation with tracheostomy. Now has a closure of the tracheostomy. 17. 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 18. Stage III sacral ulcer. 19. Chronic wounds on right foot. 20. Chronic anemia. 21. History of heparin-induced thrombocytopenia. SURGICAL HISTORY: 1. Appendectomy. 2. Left elbow ulnar nerve transposition. 3. History of lumbar spinal fusion in April 2010. 4. Removal of screws, rods from lumbar spine, and bone graft June 2011. 5. Aborted lumbar laminectomy in July 2014. 6. Bilateral lower extremity compartment fasciotomies. 7. Left colectomy and right partial colectomy with colostomy. 8. Cholecystectomy. 9. Aortoiliac bypass grafts. 10. Tracheostomy July 2014. 11. Removal of infected aortobifemoral graft. Insertion of second aortobifemoral (ABF) graft in August 2014. 12. Temporary pacemaker August 2014. 13. Endoscopic retrograde cholangiopancreatography (ERCP), sphincterotomy, and biliary stent placement September 2014. 14. Multiple sacral decubitus ulcer debridements in November 2014. 15. Tracheostomy removal and closure March 2015. ALLERGIES: 1. REMERON. Side effect is nightmares 2. WELLBUTRIN. Side effect is agitation. 3. ZOLOFT. Side effect is diarrhea. 4. PROZAC. Side effect is depression. 5. LYRICA. Side effect is incontinence. FAMILY HISTORY: Noncontributory. SOCIAL HISTORY: Patient smokes a few cigarettes a day. He denies any alcohol or drug use. He lives with his . REVIEW OF SYSTEMS: CARDIOLOGY: Denies chest pain, palpitations. PULMONARY: Denies shortness of breath, cough, wheezing. HEME: Admits to excessive bleeding from fistula site. Denies any gum bleeding or bleeding from sites of chronic wounds. GASTROENTEROLOGY: Denies changes in bowel habits, blood in colostomy bag, nausea , vomiting, or abdominal pain. GENERAL: Denies fevers, chills. HEENT: Denies cold symptoms, rhinorrhea, ear pain, throat pain. : Denies dysuria NEUROLOGIC: Admits to chronic numbness of right foot. SKIN: Admits to chronic erythema of abdomen as well as chronic wounds on right foot and sacral area. MSK: Admits to chronic back pain MEDICATIONS: - acetaminophen 650 mg by mouth every 4 hours as needed for pain - amitriptyline 25 mg by mouth daily - Aquaphor topically to legs every 2 days to legs - CertaVite antioxidant one tablet by mouth daily - fluconazole 400 mg by mouth daily - gabapentin 400 mg by mouth every morning - gabapentin 600 mg by mouth twice daily at 1400 and 2100 - milk of magnesia 30 mL as needed daily for constipation - OxyContin 10 mg by mouth at bedtime - oxycodone/acetaminophen one tablet by mouth every 6 hours as needed for pain - oxycodone/acetaminophen one tablet by mouth scheduled twice daily at 8 a.m. and 2 p.m. - pantoprazole 40 mg by mouth daily - paroxetine 40 mg by mouth daily - Lyrica 50 mg by mouth every morning - Lyrica 100 mg by mouth at bedtime PHYSICAL EXAMINATION: VITAL SIGNS: Temperature 97.1, pulse 86, respiratory rate 16, blood pressure 125/67, pulse oximetry 95% on room air. GENERAL: Patient is alert and oriented to person, place, situation. He is in mild distress, complaining of pain in his sacral region and his right foot HEAD: Normocephalic, atraumatic. ENT: Mucous membranes are moist. No eye discharge. NECK: Supple. No thyromegaly or masses. CARDIOVASCULAR: Regular rate and rhythm. No murmurs, rubs, or gallops. LUNGS: Clear to auscultation bilaterally, though patient has decreased air movement in the bases. ABDOMEN: Soft, nontender to palpation, nondistended. Colostomy is in place with no active bleeding noted. Three enterocutaneous fistulas are noted with fistula bag placed over them and dark-red fluid in the bag. SKIN: Patient has moist erythema over entire lower abdomen bilaterally and in inguinal regions. He has chronic erythema on right lower extremity with scarring from prior surgeries. Dorsum of right foot and right heel are covered in Optifoam dressings with no surrounding erythema. Foot is diffusely tender to palpation. Stage III sacral ulcer noted over entire sacral region and into gluteal cleft with Optifoam dressing partially covering this area. NEUROLOGIC: Cranial nerves II-XII are intact. LABORATORY DATA: Hemoglobin is 11.6, hematocrit 37.1. INR is 7.47, PT is 68.2. Chemistry was performed yesterday afternoon and was within normal limits except for an elevated glucose of 239. Liver panel was added today with an elevated AST of 108 and ALT of 76, alkaline phosphatase of 165, total bilirubin 0.3, direct bilirubin of 0.1. ASSESSMENT AND PLAN: This is a 62-year-old male with: 1. Supratherapeutic INR with active bleeding from fistula sites: Patient does not appear to be having worsening anemia, though he does have some chronic anemia at baseline. Hemoglobin is stable from yesterday. His warfarin has been held for the last 3 days; however, he has had persistently high PT/INR, and now that he is having active bleeding, I recommend active treatment of this with vitamin K. He received 2.5 mg of oral vitamin K in the emergency department, and I will to give another 5 mg of oral vitamin K now. We will recheck a PT/INR and a complete blood count (CBC) in the morning and monitor for worsening bleeding and symptoms of anemia. 2. Chronic wounds of right food and stage III chronic sacral ulcer: This is currently being managed by Dr. Silva. Patient stated that the dressings on foot are changed once a week and were recently changed on Friday, so we will leave these dressings in place. He has a followup appointment with Dr. Silva on April 30. He is requesting medication for pain control. We will continue his home pain medications and also add morphine 2 mg every 2 hours as needed for severe pain. 3. History of colectomy with colostomy as well as enterocutaneous fistulas: Emergency department (ED) physician did make general surgery aware of this patient; however, at this point I do not think that he has any acute issue requiring general surgery's input, so we will hold off on an official consult at this point. 4. Chronic candidemia: continue chronic fluconazole Otherwise, we will continue all of patient's chronic medications. MARIAELENA
[2017-04-21 06:00] VITALS: BP 139/65
[2017-04-21 08:24] LABS: MEAN CORPUSCULAR HEMOGLOBIN 29.2 pg (27.0-33.0); MEAN CORPUSCULAR HGB CONC 31.8 g/dl (32.0-36.5); MEAN CORPUSCULAR VOLUME 91.8 fl (80.0-96.0); RED CELL DISTRIBUTION WIDTH 15.4 % (11.5-14.5)
[2017-04-21 08:41] LABS: ANION GAP 8 MEQ/L (8-16); BLOOD UREA NITROGEN 17 MG/DL (7-18); CALCIUM LEVEL 8.6 MG/DL (8.8-10.2); CARBON DIOXIDE LEVEL 29 MEQ/L (21-32); CHLORIDE LEVEL 104 MEQ/L (98-107); CREATININE FOR GFR 1.11 MG/DL (0.70-1.30); GLOMERULAR FILTRATION RATE > 60.0 (>49); GLUCOSE, FASTING 158 MG/DL (80-110); INR 2.68; POTASSIUM SERUM 4.2 MEQ/L (3.5-5.1); SODIUM LEVEL 141 MEQ/L (136-145)
[2017-04-21] MEDS: PERCOCET 5MG/325MG TAB PO PRN (10:18)
[2017-04-21] MEDS: PARoxetine 20 MG TAB PO SCH (10:19)
[2017-04-21] MEDS: PANTOPRAZOLE 40MG TAB (PROTONIX) PO SCH (10:20)
[2017-04-21] MEDS: AMITRIPTYLINE 25 MG TAB PO SCH (10:20)
[2017-04-21] MEDS: FLUCONAZOLE 100 MG TAB PO SCH (10:20)
[2017-04-21] MEDS: PREGABALIN 50 MG CAP (LYRICA) PO SCH ×2 (10:21→20:05)
[2017-04-21] MEDS: GABAPENTIN 400 MG CAP PO SCH (10:21)
[2017-04-21] MEDS: OCUVITE 1 TAB PO SCH (10:21)
--- NOTE | 2017-04-21 10:24 | IPNPDOC ---
Subjective Date Seen The patient was seen on 04/21/17. Subjective Chief Complaint/HPI The patient is a 62-year-old male admitted with a reason for visit of Adverse Efect Of Anticoagulant Gi Bleed. Events since last encounter Pt denies any new issues. Denies any further bleeding episodes. Constitutional: Denies: Chills, Fever Pulmonary: Denies: Dyspnea Cardiovascular: Denies: Chest Pain Gastrointestinal: Denies: Abdominal Pain Objective Physical Examination General Exam: Positive: Alert, Cooperative, No Acute Distress ENT Exam: Positive: Atraumatic, Mucous membr. moist/pink Chest Exam: Positive: Clear to auscultation, Normal air movement Heart Exam: Positive: Rate Normal, Regular Rhythm, Normal S1, Normal S2 Abdomen Exam: Positive: Soft, Other (enterocutaneous fistula with thin red- brown fluid in bag; colostomy does not appear grossly bloody) Psych Exam: Positive: Mental status NL, Mood NL, Oriented x 3 Assessment /Plan Problems (1) Elevated INR Status: Acute Response to Treatment: Improving Problem Text: 04/21 - INR improved to 2.36 today. Received Vitamin K yesterday. Discuss with attending when to restart warfarin. INR better today but still supratherapeutic. Received oral vitamin K 7.5 mg in ED; give 10 mg this am. Continue to hold warfarin. Fluid in fistula bag appears less bloody. Recheck PT/INR in the morning. Cause of supratherapeutic INR is unclear; no new medications that would interact. Discharged from [facility] 2 weeks ago and states his diet has changed significantly since then. (2) Decubitus ulcer, heel Status: Chronic Response to Treatment: Stable Problem Text: Patient is c/o pain - this is chronic. Chronic pain medications have been continued (oxycontin, scheduled Percocet, PRN percocet). (3) Sacral decubitus ulcer Status: Chronic Problem Text: Chronic; main cause of patient's pain. Chronic pain medications continued. Follows with Dr. Silva and has outpatient follow-up scheduled for 04/30/17. (4) GI bleed Status: Acute Problem Text: from enterocutaneous fistula site. See above. (5) History of disseminated candidiasis Permanent Comment: REQUIRES LIFELONG DIFLUCAN Last Edited By: Judy Key DO on Sep 09, 2015 14:35 Status: Chronic Plan/VTE VTE Prophylaxis Ordered?: No (INR supratherapeutic) VS, I&O, 24H, Fishbone Vital Signs/I&O Vital Signs Date Time Temp Pulse Resp B/P (MAP) Pulse Ox O2 Delivery O2 Flow Rate FiO2 04/21/17 06:00 97.7 83 18 139/65 (89) 94 Room Air I&O- Last 24 Hours up to 6 AM 04/21/17 06:00 Intake Total 1100 ml Output Total 350 ml Balance 750 ml Laboratory Data 24H LABS Laboratory Tests 2 04/21/17 08:01: Prothrombin Time 29.6H, Prothromb Time International Ratio 2.68, Anion Gap 8, Glomerular Filtration Rate > 60.0, Blood Urea Nitrogen 17, Creatinine 1.11, Sodium Level 141, Potassium Level 4.2, Chloride Level 104, Carbon Dioxide Level 29, Calcium Level 8.6L CBC/BMP Laboratory Tests 04/21/17 08:01 Red Blood Count 3.80 L, Mean Corpuscular Volume 91.8, Mean Corpuscular Hemoglobin 29.2, Mean Corpuscular Hemoglobin Concent 31.8 L, Red Cell Distribution Width 15.4 H, Calcium Level 8.6 L Milo Martinez RPA-C Apr 21, 2017 10:24
[2017-04-21 14:00] VITALS: BP 130/73
[2017-04-21] MEDS: GABAPENTIN 300 MG CAP PO SCH ×2 (15:28→20:05)
[2017-04-21] MEDS ORDERED: WARFARIN SOD 2 MG TAB PO SCH (17:00)
[2017-04-21] MEDS: oxyCODONE 10 MG CR TAB PO SCH (20:07)
[2017-04-21 22:00] VITALS: BP 194/74
[2017-04-22 02:00] VITALS: BP 194/74
[2017-04-22 06:00] VITALS: BP 145/72
[2017-04-22 06:55] LABS: MEAN CORPUSCULAR HEMOGLOBIN 29.1 pg (27.0-33.0); MEAN CORPUSCULAR HGB CONC 31.2 g/dl (32.0-36.5); MEAN CORPUSCULAR VOLUME 93.4 fl (80.0-96.0); RED CELL DISTRIBUTION WIDTH 15.4 % (11.5-14.5); WHITE BLOOD COUNT 7.6 K/mm3 (4.0-10.0)
[2017-04-22 06:59] LABS: INR 2.32
[2017-04-22 07:06] LABS: ANION GAP 5 MEQ/L (8-16); BLOOD UREA NITROGEN 17 MG/DL (7-18); CALCIUM LEVEL 9.1 MG/DL (8.8-10.2); CARBON DIOXIDE LEVEL 28 MEQ/L (21-32); CHLORIDE LEVEL 106 MEQ/L (98-107); CREATININE FOR GFR 1.15 MG/DL (0.70-1.30); GLOMERULAR FILTRATION RATE > 60.0 (>49); GLUCOSE, FASTING 143 MG/DL (80-110); POTASSIUM SERUM 3.8 MEQ/L (3.5-5.1); SODIUM LEVEL 139 MEQ/L (136-145)
[2017-04-22] MEDS: GABAPENTIN 400 MG CAP PO SCH (09:00)
[2017-04-22] MEDS ORDERED: WARF4TAB52 PO (11:03)
[2017-04-22] MEDS: GABAPENTIN 300 MG CAP PO SCH (12:37)
[2017-04-22] MEDS: PREGABALIN 50 MG CAP (LYRICA) PO SCH (12:38)
[2017-04-22] MEDS: PARoxetine 20 MG TAB PO SCH (12:38)
[2017-04-22] MEDS: FLUCONAZOLE 100 MG TAB PO SCH (12:38)
[2017-04-22] MEDS: AMITRIPTYLINE 25 MG TAB PO SCH (12:38)
[2017-04-22] MEDS: OCUVITE 1 TAB PO SCH (12:38)
[2017-04-22] MEDS: PANTOPRAZOLE 40MG TAB (PROTONIX) PO SCH (12:38)
[2017-04-22] MEDS: PERCOCET 5MG/325MG TAB PO PRN (12:39)
[2017-04-22] MEDS: AQUAPHOR **100GM** OINT TOP SCH (12:39)
[2017-04-22 14:00] VITALS: BP 141/82
[2017-04-22] MEDS ORDERED: WARFARIN SOD 1 MG TAB PO SCH (17:00)
--- NOTE | 2017-04-23 07:42 | DSES ---
DATE OF ADMISSION: 04/19/2017 DATE OF DISCHARGE: 04/22/2017 PRIMARY CARE PHYSICIAN: Theodore Christy MD ATTENDING PHYSICIAN: Judy Key MD HISTORY OF PRESENT ILLNESS: Nitesh Dolan is a 62-year-old male patient of Dr. Christy and JYOTI Almeida, who presented to the emergency room (ER) with kenji bleeding into his enterocutaneous fistula bag The patient does have a complex medical history which includes multiple abdominal surgeries and he has a chronic colostomy, as well as had cutaneous fistula. He did have an elevated INR prior to admission and had been recently discharged from [facility]. He has chronically been on warfarin for a history of an aortoiliac bypass graft. Additionally, he does follow with Dr. Silva for chronic wounds of the feet and sacrum and he has an upcoming appointment with Dr. Silva. At admission, the patient was found to have an INR of 7.47. He was admitted with his a supra-therapeutic INR and active bleeding from the fistula sites. His Coumadin was reversed with vitamin K and he was given additional vitamin K during the course of his hospitalization and his INR eventually did return to therapeutic level. He was restarted on Coumadin yesterday with 1 mg scheduled for Friday, Friday, , Friday and 2 mg scheduled for Friday, Friday, Friday. His hemoglobin stayed relatively stable. At admission, it was 11.6, did drop as low as 11.1, however on day of discharge hemoglobin was 11.8. The patient reported no further bleeding and noted no further bleeding into his fistula bags. The patient has a history of decubitus ulcers and sacral ulcers and he continues to follow up with his surgeon, Dr. Christy and has an appointment coming up soon. He does have a history of disseminated candidiasis and requires lifelong Diflucan, which was continued during the course of hospitalization and will be continued at discharge. On day of discharge, the patient is feeling well. He will be discharged home with instructions to follow up on Friday for recheck of INR. He will also need to follow up with his primary care physician, Dr. Christy next week for hospital followup. PHYSICAL EXAMINATION: VITAL SIGNS: Temperature 99.2, pulse 62, respiratory rate 16, blood pressure is 154/72, pulse ox 94% on room air. GENERAL: The patient is alert and oriented x3. No acute distress. CHEST: Clear to auscultation bilaterally. No wheezes, rales, rhonchi or crackles. HEART: Regular rate and rhythm. ABDOMEN: Positive bowel sounds, soft, nontender. The patient has an enterocutaneous fistula with thin brownish fluid and a colostomy with brownish fluid. No bloody appearance to the either fistula or the colostomy, fistula bag or colostomy bag. EXTREMITIES: No edema. The patient with dressings to the right foot and heel, chronic erythema of the lower extremities. LABORATORY DATA: White blood count (WBC) 7.6, hemoglobin 11.8, hematocrit 37.9, platelets 333. Sodium 139, potassium 3.8, chloride 106, carbon dioxide 28, BUN 17, creatinine 1.15, glucose 143, calcium 9.1, PT 26.4, INR 2.32. MEDICATIONS: - warfarin 1 mg by mouth every Friday, Friday, , Friday and 2 mg by mouth every Friday, Friday, Friday. - acetaminophen 650 mg by mouth every 4 hours as needed for pain or fever - amitriptyline 25 mg by mouth daily - Aquaphor as directed - fluconazole 400 mg by mouth daily - gabapentin 400 mg by mouth every morning, 600 mg by mouth twice a day - Milk of Magnesium 30 mL by mouth daily as needed for constipation - OxyContin mg by mouth at bedtime (q.h.s.) - oxycodone 5/325 mg 1 tablet by mouth every 6 hours . - Protonix 40 mg by mouth daily - paroxetine 50 mg by mouth daily DISCHARGE INSTRUCTIONS: Diet is low-fat, low-cholesterol. Activity is as tolerated. Followup on 04/25/2017, for PT/INR to be done in the office, for further instructions on Coumadin. Followup with Dr. Christy in one week for hospital followup. Home health nurse/public health referral. Followup with Dr. Silva as instructed. Wound care per Dr. Silva and public health. DISCHARGE DIAGNOSES 1. Supra-therapeutic INR/bleeding from fistula sites/gastrointestinal (GI) bleed. 2. Decubitus ulcer of the heel. 3. Sacral decubitus ulcer. 4. History of disseminated candidiasis.
== END 2017-04-22 15:30 | disposition home health service (06) | DRG 813 ==
LOC: M ED 15:51 → EDBD 15:51 → M ED INP 18:42 → M MS5PR 20:20
PROVIDERS: ADMIT Family Medicine; ATTEND Family Medicine
DX: D68.32 Hemorrhagic disorder due to extrinsic circulating anticoagulants (principal); L89.153 Pressure ulcer of sacral region, stage 3; B37.7 Candidal sepsis; K63.2 Fistula of intestine; I25.10 Atherosclerotic heart disease of native coronary artery without angina pectoris; E78.5 Hyperlipidemia, unspecified; I73.9 Peripheral vascular disease, unspecified; J44.9 Chronic obstructive pulmonary disease, unspecified; G47.33 Obstructive sleep apnea (adult) (pediatric); K21.9 Gastro-esophageal reflux disease without esophagitis; F32.9 Major depressive disorder, single episode, unspecified; L89.619 Pressure ulcer of right heel, unspecified stage; F41.9 Anxiety disorder, unspecified; E55.9 Vitamin D deficiency, unspecified; M51.36 Other intervertebral disc degeneration, lumbar region; E83.52 Hypercalcemia; D64.9 Anemia, unspecified; Z90.49 Acquired absence of other specified parts of digestive tract; Z93.3 Colostomy status; Z88.8 Allergy status to other drugs, medicaments and biological substances; Z79.891 Long term (current) use of opiate analgesic; Z79.899 Other long term (current) drug therapy; Z87.891 Personal history of nicotine dependence; T45.515A Adverse effect of anticoagulants, initial encounter; Z79.01 Long term (current) use of anticoagulants

== ENCOUNTER → 2017-04-30 | Outpatient (REF) | payer OTHER ==
[~2017-04-30] MED LIST changes: +CERTTAB3; +CERTTAB3 PO; +FERR325T3 PO; +GABA600T PO; +GABA800T PO; +HYDR2TAB2 PO; +OXYC-141 PO; +OXYC1TAB23 PO; +TYLE325T5 PO
[2017-04-30 17:50] LABS: INR 2.17
== END ==
LOC: M LAB REF 17:37
PROVIDERS: ATTEND Family Medicine
DX: R79.1 Abnormal coagulation profile (principal)

== ENCOUNTER → 2017-05-05 | Outpatient (REF) | payer OTHER ==
[2017-05-05 17:30] LABS: MICROSCOPIC INDICATED? MAN YES (NO)
[2017-05-05 17:36] LABS: INR 1.92
[2017-05-05 17:40] LABS: BACTERIA, URINE LARGE AMOUNT; CALCIUM OXALATE CRYSTALS,URINE SMALL AMOUNT /hpf; HYALINE CAST, URINE NONE SEEN /lpf (0-1); WBC, URINE TNTC /hpf (0-3)
[2017-05-05 17:41] LABS: MICROSCOPIC EXAM PERFORMED; SQUAMOUS EPITHELIAL CELL URINE SMALL AMOUNT /hpf (SMALL AMT)
[2017-05-05 18:02] LABS: PERCENT SATURATION 8.1 % (19.7-50.0)
[2017-05-06 11:42] LABS: PRETREATED FOLATE FOR RBCFOL 11.1 NG/ML
== END ==
LOC: M LAB REF 16:55
PROVIDERS: ATTEND Family Medicine
DX: K63.2 Fistula of intestine (principal)
CPT/HCPCS: 80061; 81000; 81015; 82043; 82550; 82607; 82728; 82747; 83036; 83550; 85610; 85730; 87088; 87186; G0103

== ENCOUNTER → 2017-05-12 | Outpatient (CLI) | payer OTHER ==
--- NOTE | 2017-05-12 11:20 | REP ---
CT LUMBAR SPINE WITHOUT CONTRAST: HISTORY: Spondylosis. COMPARISON: 12/01/2009 There is no disc bulge or herniation at the L1-2 and L2-3 levels. There is hypertrophy of the posterior articulating facets at the L2-3 level. The nerves exit the neural foramina without compression. A diffuse disc bulge is present at the L3-4 level. There is hypertrophy of the ligamenta flava and posterior articulating facets. These findings produce moderate central canal stenosis. The L3 nerves exit the neural foramina without compression. A diffuse disc bulge is present at the L4-5 level. There is hypertrophy of the ligamenta flava and posterior articulating facets. There are 3 mm of grade 1 spondylolisthesis of L4 on L5. These findings produce mild central canal stenosis. There is compression of the left L4 nerve in the neural foramen. The right L4 nerve exits the neural foramen without compression. A left laminectomy defect is present. A diffuse disc bulge is present at the L5-S1 level. There is minimal compression of the thecal sac. There is hypertrophy of the posterior articulating facets. The L5 nerves exit the neural foramina without compression. A left laminectomy defect is present. The L4-5 intervertebral disc is decreased in height consistent with disc degeneration. The vertebral bodies are normal in height. IMPRESSION: 1. Moderate central canal stenosis at the L3-4 level secondary to disc bulge, ligamentous and facet hypertrophy. This is a new finding. 2. Mild central canal stenosis at the L4-5 level secondary to disc bulge ligamentous and facet hypertrophy and grade 1 spondylolisthesis. There is compression of the left L4 nerve in the neural foramen. A left laminectomy defect is present. The canal stenosis and left L4 nerve compression are new findings. 3. Diffuse disc bulge at the L5-S1 level with minimal thecal sac compression. A left laminectomy defect is present. There is no other significant change. Signed by Gerardo Charlton MD 05/12/2017 11:25 A
== END ==
LOC: M RAD 10:05
PROVIDERS: ATTEND Family Medicine
DX: M43.06 Spondylolysis, lumbar region (principal)

== ENCOUNTER → 2017-05-15 | Outpatient (CLI) | payer OTHER ==
--- NOTE | 2017-05-16 15:13 | REP ---
BILATERAL LOWER EXTREMITY DUPLEX DOPPLER ARTERIAL ULTRASOUND: Real-time sonographic evaluation of bilateral lower extremity arterial vasculature is performed with duplex Doppler interrogation. Ankle to brachial index on the right is 0.81 and on the left is 0.89. There is a history of an axillary to bifemoral bypass graft placed in 2013. The bypass graft is interrogated in the right groin above the anastomosis with the right common femoral artery, velocities ranging from 147 cm/s to 69 cm/s. In the left groin, the bypass graft is seen with velocities 79 cm/s to 69 cm/s proximal to the anastomosis. No significant stenosis is seen at either anastomotic site with the common femoral arteries. Both arterial systems of the lower extremities demonstrate diffusely monophasic waveforms due to inflow from the bypass graft. There is no other compelling duplex Doppler sonographic evidence of significant stenosis in the bilateral lower extremities. Velocities are measured as follows: Right Left PK systolic velocity common femoral artery 90 cm/s 49 cm/s PK systolic velocity profunda 35 cm/s 55 cm/s PK systolic velocity proximal SFA 63 cm/s 75 cm/s PK systolic velocity SFA mid 45 cm/s 61 cm/s Pk systolic distal SFA 43 cm/s 27 cm/s Pk systolic velocity popliteal 30 cm/s 46 cm/s Pk systolic velocity proximal JADEN 21 cm/s 16 cm/s Pk systolic velocity tibial peroneal trunk 29 cm/s 35 cm/s Pk systolic velocity proximal PROJECT COORDINATOR 47 cm/s 31 cm/s Pk systolic velocity distal PROJECT COORDINATOR 24 cm/s 21 cm/s Pk systolic velocity distal JADEN 36 cm/s 32 cm/s Signed by Miguel Ángel Ruiz MD 05/16/2017 04:04 P
== END ==
LOC: M RAD 12:25
PROVIDERS: ATTEND Family Medicine
DX: I73.9 Peripheral vascular disease, unspecified (principal)

== ENCOUNTER 2017-06-07 17:14 | Observation (INO) | payer OTHER ==
[~2017-06-07] VITALS: Ht 175.3 cm; Wt 109.1 kg
[~2017-06-07 17:14] MED LIST changes: -CERTTAB3; -FERR325T3 PO; -GABA800T PO; -HYDR2TAB2 PO; -TYLE325T5 PO
[2017-06-07] MEDS ORDERED: ONDANSETRON 4MG/2ML VIAL (J2405) IV PRN (18:00)
[2017-06-07] MEDS ORDERED: MOM 30ML SUSPENSION UDC PO PRN (18:00)
[2017-06-07 20:28] VITALS: BP 158/85
[2017-06-07] MEDS ORDERED: TYLE325T5 PO (20:58)
[2017-06-07] MEDS ORDERED: WARF4TAB52 PO (20:58)
[2017-06-07] MEDS ORDERED: MORPHINE 2 MG/ML 1ML SYRINGE IV PRN (21:00)
[2017-06-07] MEDS: AMITRIPTYLINE 25 MG TAB PO SCH ×2 (21:00→21:59)
[2017-06-07] MEDS: GABAPENTIN 400 MG CAP PO SCH ×2 (21:00→21:59)
[2017-06-07] MEDS ORDERED: FERR325T3 PO (21:01)
[2017-06-07] MEDS ORDERED: GABA800T PO (21:01)
[2017-06-07] MEDS ORDERED: HYDR2TAB2 PO (21:01)
[2017-06-07] MEDS ORDERED: WARFARIN SOD 2 MG TAB PO STA (21:14)
[2017-06-07] MEDS: KCL 20MEQ IN 0.45NS 1000ML 1,000 ML IV SCH (22:00)
[2017-06-08] VITALS: BP 144/92
[2017-06-08 01:45] VITALS: BP 141/85
[2017-06-08 04:00] VITALS: BP 139/87
[2017-06-08] MEDS: KCL 20MEQ IN 0.45NS 1000ML 1,000 ML IV SCH ×2 (04:15→07:46)
[2017-06-08 08:07] VITALS: BP 121/86
[2017-06-08] MEDS ORDERED: FLUCONAZOLE 100 MG TAB PO SCH (09:00)
[2017-06-08] MEDS ORDERED: PANTOPRAZOLE 40MG TAB (PROTONIX) PO SCH (09:00)
[2017-06-08] MEDS ORDERED: PARoxetine 20 MG TAB PO SCH (09:00)
[2017-06-08 09:21] LABS: BASO % 0.1 % (0.0-1.0); EOS # 0.1 K/mm3 (0.0-0.50); EOS % 1.4 % (0.0-3.0); LARGE UNSTAINED CELL # 0.1 K/mm3 (0.0-0.4); LARGE UNSTAINED CELL % 1.4 % (0.0-4.0); LYMPH # 0.9 K/mm3 (1.5-4.5); MEAN CORPUSCULAR HEMOGLOBIN 28.8 pg (27.0-33.0); MEAN CORPUSCULAR HGB CONC 31.1 g/dl (32.0-36.5); MEAN CORPUSCULAR VOLUME 92.5 fl (80.0-96.0); MONO # 0.7 K/mm3 (0.0-0.8); NEUTROPHILS # 7.8 K/mm3 (1.8-7.7); NEUTROPHILS % 81.1 % (36.0-66.0); PLATELET COUNT, AUTOMATED 279 k/mm3 (150-450); RED CELL DISTRIBUTION WIDTH 16.3 % (11.5-14.5); WHITE BLOOD COUNT 9.6 K/mm3 (4.0-10.0)
[2017-06-08 09:39] LABS: INR 1.69
[2017-06-08 10:08] LABS: ALBUMIN 2.8 GM/DL (3.2-5.2); ALBUMIN/GLOBULIN RATIO 0.61 (1.00-1.93); ALKALINE PHOSPHATASE 177 U/L (45-117); ALT/SGPT 73 U/L (12-78); ANION GAP 5 MEQ/L (8-16); AST/SGOT 60 U/L (15-37); BILIRUBIN,TOTAL 0.6 MG/DL (0.2-1.0); BLOOD UREA NITROGEN 18 MG/DL (7-18); CALCIUM LEVEL 8.3 MG/DL (8.8-10.2); CARBON DIOXIDE LEVEL 31 MEQ/L (21-32); CHLORIDE LEVEL 105 MEQ/L (98-107); CREATININE FOR GFR 1.06 MG/DL (0.70-1.30); GLOMERULAR FILTRATION RATE > 60.0 (>49); GLUCOSE, FASTING 133 MG/DL (80-110); MAGNESIUM LEVEL 1.9 MG/DL (1.8-2.4); POTASSIUM SERUM 4.4 MEQ/L (3.5-5.1); SODIUM LEVEL 141 MEQ/L (136-145); TOTAL PROTEIN 7.4 GM/DL (6.4-8.2)
[2017-06-08] MEDS: GABAPENTIN 400 MG CAP PO SCH (10:25)
[2017-06-08] MEDS ORDERED: COUM2TAB22 PO (10:49)
[2017-06-08] MEDS ORDERED: WARF4TAB52 PO (10:55)
--- NOTE | 2017-06-08 16:06 | DSES ---
DATE OF ADMISSION: 06/07/2017 DATE OF DISCHARGE: 06/08/2017 PRIMARY CARE PHYSICIAN: Theodore Christy MD PRINCIPAL DIAGNOSIS: Intractable abdominal pain and vomiting due to gastroenteritis. SECONDARY DIAGNOSES: 1. History of aortoiliac bypass graft, on chronic warfarin. 2. Disseminated candidemia. 3. Enterocutaneous fistula and history of multiple abdominal surgeries. 4. Coronary artery disease. 5. Hyperlipidemia. 6. Peripheral artery disease. 7. Chronic obstructive pulmonary disease (COPD). 8. Obstructive sleep apnea. 9. Gastroesophageal reflux disease (GERD). 10. Depression and anxiety. 11. Degenerative disc disease of lumbosacral spine. 12. Chronic sacral ulcer. 13. Chronic wound on right foot. CONSULTANTS: None. INVASIVE PROCEDURES: None. SUMMARY STATEMENT: This is a 62-year-old male with a complex medical history who presented with 1 day of intractable left lower quadrant sharp stabbing abdominal pain and intractable vomiting. He initially presented to [facility] Emergency Department and was then transferred for intractable vomiting to [facility]. By the time of his arrival here, his abdominal pain had significantly improved, though he continued to have some emesis. He was placed on observation and morphine and Zofran were ordered for symptom control, but he did not require either of these medications. On day of discharge, he was able to tolerate breakfast without any abdominal pain or vomiting and felt significantly better. Of note, his warfarin has recently been subtherapeutic and so he was given an additional 2 mg dose of warfarin upon admission due to an INR of 1.44 in the [facility]. He was discharged home with an increase in his warfarin dose to 2.5 mg on Saturdays and continue 1.5 mg the rest of week. DISCHARGE PLANS: 1. DISCHARGE MEDICATIONS: - warfarin 1 mg take two and a half tablets on Saturdays and one and a half tablets rest of week - acetaminophen 650 mg by mouth every 4 hours as needed for pain - amitriptyline 25 mg by mouth daily - Aquaphor one dose topical every 2 days - ferrous sulfate 325 mg by mouth daily - fluconazole 400 mg by mouth daily - gabapentin 800 mg four times a day - hydromorphone 3 mg by mouth every 4 hours as needed for pain - pantoprazole 40 mg by mouth daily - paroxetine 40 mg by mouth daily 2. Followup with Dr. Christy within 1-2 weeks. Patient states home nurse is going to be coming to the house to check his INR on 06/10/2017. 3. Diet: Regular diet. Activity: As tolerated. CONDITION: Stable. PROGNOSIS: Good. PENDING STUDIES: None. MTDD
[2017-06-08] MEDS ORDERED: WARFARIN SOD 3 MG TAB PO SCH (17:00)
--- NOTE | 2017-06-08 22:08 | HPE ---
DATE OF ADMISSION: 06/07/2017 PRIMARY CARE PHYSICIAN: Dr. Theodore Christy ATTENDING PHYSICIAN: Dr. Pinky Cheatham CHIEF COMPLAINT: Intractable abdominal pain and intractable vomiting. HISTORY OF PRESENT ILLNESS: This is a 62-year-old man with a complicated medical history, including multiple abdominal surgeries, who has a chronic colostomy as well as multiple enterocutaneous fistulas with a fistula bag who presented to [place] [facility] with 1-day history of sharp, stabbing left lower quadrant abdominal pain and intractable vomiting. Patient states that abdominal pain started suddenly at 4 a.m. this morning, and then started to have vomiting at about 7 a.m. He states that he has had 5 to 8 episodes of emesis today, with last episode occurring shortly before being transferred to [facility] as a direct admission. He is on chronic pain medication, hydromorphone, which was recently increased as outpatient. He says that the hydromorphone is not adequate to control the chronic pain in his back and pain related to his chronic sacral ulcer and right foot ulcer. The ulcers are managed by Dr. Silva as an outpatient. At time of my evaluation, his abdominal pain is greatly improved, but he still feels very nauseated and recently had an episode of emesis. His colostomy bag and fistula bag are both putting out a normal amount of output with no blood in his bags. PAST MEDICAL HISTORY: 1. Coronary artery disease. 2. Hyperlipidemia. 3. Peripheral arterial disease. 4. Chronic obstructive pulmonary disease and emphysema with a history of smoking. 5. Obstructive sleep apnea. 6. Gastroesophageal reflux disease. 7. Depression and anxiety. 8. Vitamin D deficiency. 9. Degenerative disc disease of the lumbosacral spine. 10. History of perforated iliac veins and aorta during a lumbar laminectomy in 2013. 11. Ischemia of lower extremities with compartment syndrome, requiring bilateral 4-compartment fasciotomies. 12. History of an infected aortobi-iliac graft. 13. 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 14. Enterocutaneous fistulae. 15. History of zinc-deficiency dermatitis. 16. History of prolonged intensive care unit hospitalization with mechanical ventilation and tracheostomy and now has closure of his tracheostomy. 17. 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 18. Stage III sacral ulcer, managed by Dr. Silva. 19. Chronic wounds on right foot, managed by Dr. Silva. 20. Chronic anemia. 21. History of heparin-induced thrombocytopenia. SURGICAL HISTORY: 1. Appendectomy. 2. Left elbow ulnar nerve transposition. 3. History of lumbar spinal fusion in April 2010. 4. Removal of screws, rods from lumbar spine, and bone graft in June 2011. 5. Aborted lumbar laminectomy in July 2014 6. Bilateral lower extremity compartment fasciotomies. 7. Left colectomy and right partial colectomy with colostomy. 8. Cholecystectomy. 9. Aortoiliac bypass grafts. 10. Tracheostomy July 2014. 11. Removal of infected aortobifemoral graft. Insertion of second aortobi-femoral graft in August 2014. 12. Temporarily pacemaker August 2014. 13. Endoscopic retrograde cholangiography, sphincterotomy, and biliary stent placement September 2014. 14. Multiple sacral decubitus ulcer debridements in November 2014. 15. Tracheostomy removal and closure in March 2015. ALLERGIES: 1. REMERON. Side effect is nightmares. 2. WELLBUTRIN. Side effects of agitation. 3. ZOLOFT. Side effects is diarrhea. 4. PROZAC. Side effects is depression. FAMILY HISTORY: Noncontributory. SOCIAL HISTORY: Patient smokes a couple of cigarettes a day. He denies any alcohol or drug use. He currently lives with his . He denies any sick contacts or recent travel. REVIEW OF SYSTEMS: GENERAL: Denies fevers, malaise. HEENT: Denies any rhinorrhea, ear pain, throat pain, or other cold symptoms. Denies headaches. CARDIOLOGY: Denies chest pain, palpitations. PULMONOLOGY: Denies shortness of breath, cough, or wheezing. GASTROENTEROLOGY: Admits to sharp, stabbing left lower quadrant abdominal pain that has slowly improved. Denies changes in ostotomy output. Denies blood in colostomy bag. Admits to nausea and intractable vomiting as above. GENITOURINARY: Denies dysuria. HEMATOLOGY: Denies any excessive bleeding or bruising. NEUROLOGIC: Admits to chronic numbness and weakness of right lower extremity that is at baseline currently. SKIN: Admits to chronic erythema of abdomen as well as chronic wounds on the right foot and sacrum. MUSCULOSKELETAL: Admits to chronic back pain, inability to move right lower extremity, and limited ability of move left lower extremity. MEDICATIONS: - acetaminophen 650 mg by mouth every 4 hours as needed for pain - amitriptyline 25 mg by mouth daily - Aquaphor topically to legs every 2 days - multivitamin one tablet by mouth daily - fluconazole 400 mg by mouth daily - gabapentin 800 mg four times daily - milk of magnesia 30 mL as needed daily for constipation - pantoprazole 40 mg by mouth daily - paroxetine 40 mg by mouth daily - warfarin 1.5 mg by mouth daily. This was recently increased on June 03 for subtherapeutic INR. - ferrous sulfate 325 mg daily - hydromorphone 3 mg every 6 hours as needed for pain. This was recently increased on June 03. PHYSICAL EXAMINATION: Initial set of vital signs in the emergency department this morning showed a temperature 96.7, blood pressure of 128/69, heart rate of 87, respiratory rate of 24, and oxygen saturation of 98% on room air. GENERAL: Alert, oriented times three. No apparent distress. EYES: Pupils equal, round, reactive to light. No eye discharge. ENT: Oropharynx is normal. NECK: Supple. No thyromegaly or masses. HEAD: Atraumatic, normocephalic. CARDIOVASCULAR: Normal rate and rhythm. Heart sounds are distant. RESPIRATORY: No respiratory distress. Clear to auscultation bilaterally. No wheezes, rales, or rhonchi. ABDOMEN: Soft, nondistended. Patient is mildly tender to palpation in the left lower quadrant and left upper quadrant. Bowel sounds are normal in upper quadrants. There is no rebound tenderness or guarding. Colostomy and fistula both have moderate brown-appearing output. Patient has chronic erythema of scarred areas on abdominal that is at baseline. He has a right heel ulcer that is currently covered in Optifoam dressing, which was not removed. He reports history of sacral ulcers that are unchanged from baseline. EXTREMITIES: 1+ pitting edema of bilateral feet and lower legs. Patient is unable to move right lower extremity to command at all. Patient is able to wiggle left lower toes. 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 NEUROLOGIC: Patient is alert and oriented to person, place, date, and situation. Cranial nerves II-XII are intact. No focal deficits in face or upper body. Lower extremity deficits as above, which patient states are chronic and at baseline. LABORATORY DATA: Done at [facility] include PT 17.8, INR 1.44. Initial lactic acid 4.8 with repeat after fluid hydration of 2.3. White blood cell count of 13.5, hemoglobin of 13.9, hematocrit 43.7, platelets 294. Sodium 135, potassium 4.8, chloride 98, bicarbonate 24, BUN 15, creatinine 1.1. Total bilirubin 0.4, alkaline phosphatase 187, AST 82, ALT 73. Anion gap of 13. Lipase of 47. CT of abdomen showed essentially no change. "Small-bowel dilatation with adherent small-bowel loops in the anterior abdominal wall and postsurgical scarring. There again appears to be an enterocutaneous fistula. The degree of dilatation appears essentially unchanged compared to prior CT 12/17/2016. No new findings." EKG showed normal sinus rhythm per ER report. ASSESSMENT AND PLAN: This is a 62-year-old man with: 1. Intractable abdominal pain and intractable vomiting. Patient was initially transferred for intractable abdominal pain, although this appears to have improved somewhat in the interim. ER physician initially had some concern that he might have mesenteric ischemia due to his elevated lactic acid; however, they were unable to give him IV contrast for his CT of his abdomen and pelvis because they were unable to maintain IV with which to give him contrast, and he refused further IV attempts in the ED. That being said, his pain has rapidly resolved with administration of normal saline bolus, and his lactic acid is now down to normal. At this time, I do not think that we need to pursue a CT with IV contrast of his abdomen unless his pain worsens again. Most likely etiology is a viral gastroenteritis, and I recommend supportive treatment with D5 half-normal saline to provide maintenance fluid for him, a regular diet as tolerated, IV Zofran as needed for nausea, and morphine 2 mg every 2 hours as needed for pain. Patient states repeatedly that hydromorphone does not control his pain. He would prefer to receive morphine, which is consistent with what he has reported to me in the past. Will place him on observation in progressive care unit (PCU) given his significant cardiac and vascular history. Once he is able to tolerate oral intake, we will hopefully discharge him home within the next 1-2 days. 2. History of coronary artery disease, peripheral arterial disease, and aortobifemoral bypass graft. Patient's INR is currently subtherapeutic. His dose of warfarin was increased from 1 mg daily to 1.5 mg daily on 06/03/2017, which he has been taking consistently for the last 4 days; however, his INR in ER in [place] today was, in fact, lower than his INR was prior to the dose increase, so I will give an additional 2 mg this evening and recheck PT/INR in the morning. Will need to be carefully with titrating his warfarin, as he was recently admitted in April for a significantly elevated INR of 7.8. 3. Chronic wounds of foot and stage III sacral ulcer. These are managed by Dr. Silva, and patient states that he had dressings recently changed. We will hopefully be discharging him in the short term to continue to follow with Dr. Silva; however, if he has a prolonged stay, we may need to consult wound care for ongoing care of these. 4. History of disseminated candidemia. Will continue his Diflucan, which he takes chronically daily. 5. History of heparin-induced thrombocytopenia. I advised the patient that given his history, it would be worthwhile to provide bridge anticoagulation until his warfarin is therapeutic; however, we cannot give heparin given his history of heparin-induced thrombocytopenia, and the patient adamantly refuses Lovenox injections. We will therefore continue to titrate his warfarin as above. 6. Degenerative disc disease of lumbosacral spine. Patient has chronic pain related to this, for which he takes gabapentin and hydromorphone. He states the hydromorphone is not effective for his pain. 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 7. History of iron deficiency anemia. We will hold his iron now given his acute nausea and vomiting. 8. Gastroesophageal reflux disease (GERD). Continue his home pantoprazole. 9. Depression. Continue his home paroxetine and amitriptyline. [facility]
== END 2017-06-08 13:25 | disposition home or self-care (01) ==
LOC: M PCU 20:28
PROVIDERS: ADMIT Family Medicine; ATTEND Family Medicine
DX: R11.2 Nausea with vomiting, unspecified (principal); R10.32 Left lower quadrant pain; B37.7 Candidal sepsis; K63.2 Fistula of intestine; I25.10 Atherosclerotic heart disease of native coronary artery without angina pectoris; J44.9 Chronic obstructive pulmonary disease, unspecified; K21.9 Gastro-esophageal reflux disease without esophagitis; E78.4 Other hyperlipidemia; I73.9 Peripheral vascular disease, unspecified; F41.9 Anxiety disorder, unspecified; F32.9 Major depressive disorder, single episode, unspecified; L89.159 Pressure ulcer of sacral region, unspecified stage; S91.301A Unspecified open wound, right foot, initial encounter; G47.33 Obstructive sleep apnea (adult) (pediatric); M51.36 Other intervertebral disc degeneration, lumbar region; Z95.1 Presence of aortocoronary bypass graft; Z79.01 Long term (current) use of anticoagulants; Z79.899 Other long term (current) drug therapy

== ENCOUNTER → 2017-06-11 | Outpatient (REF) | payer OTHER ==
[~2017-06-11] MED LIST changes: +CERTTAB3; +FERR325T3 PO; +GABA800T PO; +HYDR2TAB2 PO; +TYLE325T5 PO
[2017-06-11 12:22] LABS: INR 1.68
[2017-06-11 12:50] LABS: FREE T4 1.28 NG/DL (0.76-1.46)
== END ==
LOC: M LAB REF 11:57
PROVIDERS: ATTEND Family Medicine
DX: I51.3 Intracardiac thrombosis, not elsewhere classified (principal); E78.2 Mixed hyperlipidemia

== ENCOUNTER 2017-06-12 10:43 | Outpatient (RCR) | payer OTHER ==
[~2017-06-12 10:43] MED LIST changes: -CERTTAB3
== END 2017-06-14 ==
LOC: M PT 10:43
PROVIDERS: ATTEND Family Medicine
DX: Z51.89 Encounter for other specified aftercare (principal); G82.21 Paraplegia, complete

== ENCOUNTER 2017-06-18 15:45 | Emergency (ER) | payer OTHER ==
[~2017-06-18] VITALS: Ht 175.3 cm; Wt 112.7 kg
[2017-06-18] MEDS ORDERED: WARF4TAB52 PO (16:06)
[2017-06-18] MEDS ORDERED: HYDROmorphone 2 MG TAB PO ONE ×2 (19:45)
[2017-06-18 19:53] VITALS: BP 148/62
== END 2017-06-18 19:55 | disposition home or self-care (01) ==
LOC: M ED 15:45
DX: Z76.0 Encounter for issue of repeat prescription (principal); G89.29 Other chronic pain; M54.5 Low back pain; I10 Essential (primary) hypertension; G47.33 Obstructive sleep apnea (adult) (pediatric); I25.2 Old myocardial infarction; Z79.899 Other long term (current) drug therapy; Z79.01 Long term (current) use of anticoagulants; Z88.5 Allergy status to narcotic agent; Z88.8 Allergy status to other drugs, medicaments and biological substances; F17.210 Nicotine dependence, cigarettes, uncomplicated

== ENCOUNTER → 2017-06-20 | Outpatient (REF) | payer OTHER ==
[~2017-06-20] MED LIST changes: +CERTTAB3
[2017-06-20 17:32] LABS: INR 2.95
== END ==
LOC: M LAB REF 16:07
PROVIDERS: ATTEND Family Medicine
DX: Z79.01 Long term (current) use of anticoagulants (principal)

== ENCOUNTER 2017-06-26 12:54 | Emergency (ER) | payer OTHER ==
[~2017-06-26] VITALS: Ht 175.3 cm; Wt 112.7 kg
[~2017-06-26 12:54] MED LIST changes: -CERTTAB3
[2017-06-26] MEDS ORDERED: CERTTAB3 (13:13)
[2017-06-26 15:13] LABS: BASO # 0.1 10^3/uL (0.0-0.2); BASO % 0.5 % (0.0-1.0); EOS # 0.3 10^3/uL (0.0-0.50); EOS % 2.7 % (0.0-3.0); IMMATURE GRANULOCYTE % 0.3 % (0-0); LYMPH # 1.3 10^3/uL (1.5-4.5); LYMPH % 12.5 % (24.0-44.0); MEAN CORPUSCULAR HEMOGLOBIN 28.3 pg (27.0-33.0); MEAN CORPUSCULAR HGB CONC 30.7 g/dl (32.0-36.5); MEAN CORPUSCULAR VOLUME 92.2 fl (80.0-96.0); MONO # 0.9 10^3/uL (0.0-0.8); MONO % 8.1 % (0.0-5.0); NEUTROPHILS % 75.9 % (36.0-66.0); PLATELET COUNT, AUTOMATED 334 10^3/uL (150-450); RED CELL DISTRIBUTION WIDTH 17.1 % (11.5-14.5); WHITE BLOOD COUNT 10.5 10^3/uL (4.0-10.0)
[2017-06-26 15:23] LABS: INR 4.99
[2017-06-26 16:01] LABS: ALBUMIN 3.2 GM/DL (3.2-5.2); ALBUMIN/GLOBULIN RATIO 0.68 (1.00-1.93); ALKALINE PHOSPHATASE 182 U/L (45-117); ALT/SGPT 75 U/L (12-78); ANION GAP 6 MEQ/L (8-16); AST/SGOT 105 U/L (15-37); BILIRUBIN,DIRECT 0.2 MG/DL (0.0-0.2); BILIRUBIN,TOTAL 0.3 MG/DL (0.2-1.0); BLOOD UREA NITROGEN 17 MG/DL (7-18); CALCIUM LEVEL 8.9 MG/DL (8.8-10.2); CARBON DIOXIDE LEVEL 28 MEQ/L (21-32); CHLORIDE LEVEL 104 MEQ/L (98-107); CREATININE FOR GFR 1.24 MG/DL (0.70-1.30); GLOMERULAR FILTRATION RATE > 60.0 (>49); GLUCOSE, FASTING 118 MG/DL (80-110); POTASSIUM SERUM 4.3 MEQ/L (3.5-5.1); SODIUM LEVEL 138 MEQ/L (136-145); TOTAL PROTEIN 7.9 GM/DL (6.4-8.2)
[2017-06-26 17:42] VITALS: BP 123/64
== END 2017-06-26 17:42 | disposition home or self-care (01) ==
LOC: M ED 12:54
DX: R79.1 Abnormal coagulation profile (principal); E11.9 Type 2 diabetes mellitus without complications; I25.2 Old myocardial infarction; E78.4 Other hyperlipidemia; G47.33 Obstructive sleep apnea (adult) (pediatric); Z79.01 Long term (current) use of anticoagulants

== ENCOUNTER → 2017-07-04 | Outpatient (REF) | payer OTHER ==
[~2017-07-04] MED LIST changes: +CERTTAB3
[2017-07-04 15:35] LABS: ALBUMIN 3.2 GM/DL (3.2-5.2); ALBUMIN/GLOBULIN RATIO 0.68 (1.00-1.93); ALKALINE PHOSPHATASE 182 U/L (45-117); ALT/SGPT 79 U/L (12-78); ANION GAP 8 MEQ/L (8-16); AST/SGOT 99 U/L (15-37); BILIRUBIN,TOTAL 0.3 MG/DL (0.2-1.0); BLOOD UREA NITROGEN 19 MG/DL (7-18); CARBON DIOXIDE LEVEL 25 MEQ/L (21-32); CHLORIDE LEVEL 105 MEQ/L (98-107); CREATININE FOR GFR 1.08 MG/DL (0.70-1.30); GLOMERULAR FILTRATION RATE > 60.0 (>49); GLUCOSE, FASTING 160 MG/DL (80-110); POTASSIUM SERUM 4.3 MEQ/L (3.5-5.1); SODIUM LEVEL 138 MEQ/L (136-145); TOTAL PROTEIN 7.9 GM/DL (6.4-8.2)
== END ==
LOC: M LAB REF 14:40
PROVIDERS: ATTEND Family Medicine
DX: Z79.01 Long term (current) use of anticoagulants (principal)

== ENCOUNTER → 2017-07-07 | Outpatient (REF) | payer OTHER ==
[2017-07-07 13:11] LABS: MEAN CORPUSCULAR HEMOGLOBIN 28.1 pg (27.0-33.0); MEAN CORPUSCULAR HGB CONC 30.3 g/dl (32.0-36.5); MEAN CORPUSCULAR VOLUME 92.9 fl (80.0-96.0); PLATELET COUNT, AUTOMATED 266 10^3/uL (150-450); RED CELL DISTRIBUTION WIDTH 17.4 % (11.5-14.5)
== END ==
LOC: M LAB REF 12:33
PROVIDERS: ATTEND Family Medicine
DX: R79.1 Abnormal coagulation profile (principal)

== ENCOUNTER → 2017-07-29 | Outpatient (CLI) | payer OTHER ==
[2017-07-29 11:39] LABS: BASO # 0.1 10^3/uL (0.0-0.2); BASO % 0.6 % (0.0-1.0); EOS # 0.2 10^3/uL (0.0-0.50); EOS % 2.2 % (0.0-3.0); IMMATURE GRANULOCYTE % 0.4 % (0-0); LYMPH % 12.5 % (24.0-44.0); MEAN CORPUSCULAR HEMOGLOBIN 28.1 pg (27.0-33.0); MEAN CORPUSCULAR VOLUME 93.7 fl (80.0-96.0); MONO # 0.5 10^3/uL (0.0-0.8); NEUTROPHILS # 6.1 10^3/uL (1.8-7.7); NEUTROPHILS % 78.3 % (36.0-66.0); PLATELET COUNT, AUTOMATED 257 10^3/uL (150-450); RED CELL DISTRIBUTION WIDTH 17.1 % (11.5-14.5); WHITE BLOOD COUNT 7.8 10^3/uL (4.0-10.0)
[2017-07-29 11:47] LABS: INR 1.14
[2017-07-29 12:28] LABS: FERRITIN 82 NG/ML (26-388); TOTAL IRON BINDING CAPACITY 366 UG/DL (250-450); URIC ACID 5.9 MG/DL (3.5-7.2)
== END ==
LOC: M LAB 10:57
PROVIDERS: ATTEND Family Medicine
DX: K76.0 Fatty (change of) liver, not elsewhere classified (principal)

== ENCOUNTER 2017-08-13 11:16 | Outpatient (RCR) | payer OTHER | END 2017-08-14 | LOC: M PT 11:16 | PROVIDERS: ATTEND Family Medicine | DX: Z51.89 Encounter for other specified aftercare (principal); G82.21 Paraplegia, complete ==

== ENCOUNTER 2017-08-15 11:20 | Outpatient (RCR) | payer OTHER | END 2017-09-14 | LOC: M PT 08-18 11:12 | DX: Z51.89 Encounter for other specified aftercare (principal); G82.21 Paraplegia, complete | CPT/HCPCS: 97110 ==

== ENCOUNTER → 2017-08-29 | Outpatient (CLI) | payer OTHER | LOC: M PAIN 09:30 | DX: M43.06 Spondylolysis, lumbar region (principal); M54.16 Radiculopathy, lumbar region; I51.3 Intracardiac thrombosis, not elsewhere classified; I73.9 Peripheral vascular disease, unspecified; I25.2 Old myocardial infarction; E11.9 Type 2 diabetes mellitus without complications; E78.2 Mixed hyperlipidemia; G47.33 Obstructive sleep apnea (adult) (pediatric); F32.9 Major depressive disorder, single episode, unspecified; F41.9 Anxiety disorder, unspecified; K21.9 Gastro-esophageal reflux disease without esophagitis; E55.9 Vitamin D deficiency, unspecified; E66.09 Other obesity due to excess calories; Z68.35 Body mass index [BMI] 35.0-35.9, adult; D50.9 Iron deficiency anemia, unspecified; F17.210 Nicotine dependence, cigarettes, uncomplicated; Z88.8 Allergy status to other drugs, medicaments and biological substances; Z79.01 Long term (current) use of anticoagulants; Z79.899 Other long term (current) drug therapy | CPT/HCPCS: G0463 ==

== ENCOUNTER 2017-09-17 11:12 | Outpatient (RCR) | payer OTHER | END 2017-10-15 | LOC: M PT 11:12 | DX: Z51.89 Encounter for other specified aftercare (principal); G82.21 Paraplegia, complete ==

== ENCOUNTER → 2017-09-17 | Outpatient (CLI) | payer OTHER ==
[2017-09-17 12:47] LABS: BASO % 0.5 % (0.0-1.0); EOS # 0.2 10^3/uL (0.0-0.50); EOS % 2.3 % (0.0-3.0); HEMATOCRIT 45.7 % (42.0-52.0); HEMOGLOBIN 13.9 g/dl (14.0-18.0); IMMATURE GRANULOCYTE % 0.3 % (0-0); LYMPH # 1.1 10^3/uL (1.5-4.5); LYMPH % 12.7 % (24.0-44.0); MEAN CORPUSCULAR HEMOGLOBIN 28.3 pg (27.0-33.0); MEAN CORPUSCULAR HGB CONC 30.4 g/dl (32.0-36.5); MEAN CORPUSCULAR VOLUME 92.9 fl (80.0-96.0); MONO # 0.5 10^3/uL (0.0-0.8); MONO % 5.8 % (0.0-5.0); NEUTROPHILS # 6.8 10^3/uL (1.8-7.7); NEUTROPHILS % 78.4 % (36.0-66.0); PLATELET COUNT, AUTOMATED 276 10^3/uL (150-450); RED BLOOD COUNT 4.92 10^6/uL (4.30-6.10); RED CELL DISTRIBUTION WIDTH 16.5 % (11.5-14.5); RETIC HEMOGLOBIN EQUIVALENT 32.1 pg (24-36); RETICULOCYTE % 1.9 % (0.5-1.5); WHITE BLOOD COUNT 8.6 10^3/uL (4.0-10.0)
[2017-09-17 13:14] LABS: ALBUMIN 2.9 GM/DL (3.2-5.2); ALBUMIN/GLOBULIN RATIO 0.63 (1.00-1.93); ALKALINE PHOSPHATASE 152 U/L (45-117); ALT/SGPT 40 U/L (12-78); ANION GAP 10 MEQ/L (8-16); AST/SGOT 48 U/L (7-37); BILIRUBIN,TOTAL 0.4 MG/DL (0.2-1.0); BLOOD UREA NITROGEN 15 MG/DL (7-18); CALCIUM LEVEL 8.8 MG/DL (8.8-10.2); CARBON DIOXIDE LEVEL 26 MEQ/L (21-32); CHLORIDE LEVEL 103 MEQ/L (98-107); CHOLESTEROL LEVEL 176 MG/DL (<200); CPK CREATINE PHOSPHOKINASE 70 U/L (39-308); CREATININE FOR GFR 1.19 MG/DL (0.70-1.30); FREE T4 0.86 NG/DL (0.76-1.46); GLOMERULAR FILTRATION RATE > 60.0 (>49); GLUCOSE, FASTING 245 MG/DL (80-110); HDL CHOLESTEROL 40 MG/DL (>40); NON-HDL-C 136 MG/DL; POTASSIUM SERUM 4.2 MEQ/L (3.5-5.1); SODIUM LEVEL 139 MEQ/L (136-145); TOTAL PROTEIN 7.5 GM/DL (6.4-8.2); TRIGLYCERIDES LEVEL 260 MG/DL (<150)
[2017-09-17 13:30] LABS: ESTIMATED AVERAGE GLUCOSE 171 MG/DL (60-110); HEMOGLOBIN A1c 7.6 %
== END ==
LOC: M LAB 11:45
DX: D50.9 Iron deficiency anemia, unspecified (principal); E78.2 Mixed hyperlipidemia
CPT/HCPCS: 82550

== ENCOUNTER → 2017-09-23 | Outpatient (CLI) | payer OTHER | LOC: M PAIN 09:30 | DX: M79.2 Neuralgia and neuritis, unspecified (principal); M47.816 Spondylosis without myelopathy or radiculopathy, lumbar region; M96.1 Postlaminectomy syndrome, not elsewhere classified; F17.210 Nicotine dependence, cigarettes, uncomplicated; Z79.891 Long term (current) use of opiate analgesic; Z79.899 Other long term (current) drug therapy; Z79.82 Long term (current) use of aspirin; Z88.8 Allergy status to other drugs, medicaments and biological substances | CPT/HCPCS: G0463 ==

== ENCOUNTER → 2017-10-17 | Outpatient (CLI) | payer OTHER | LOC: M PAIN 09:15 | DX: M79.2 Neuralgia and neuritis, unspecified (principal); M47.816 Spondylosis without myelopathy or radiculopathy, lumbar region; M96.1 Postlaminectomy syndrome, not elsewhere classified; I73.9 Peripheral vascular disease, unspecified; I25.2 Old myocardial infarction; E78.5 Hyperlipidemia, unspecified; E11.9 Type 2 diabetes mellitus without complications; J45.909 Unspecified asthma, uncomplicated; G47.33 Obstructive sleep apnea (adult) (pediatric); K21.9 Gastro-esophageal reflux disease without esophagitis; F32.9 Major depressive disorder, single episode, unspecified; F41.9 Anxiety disorder, unspecified; M10.9 Gout, unspecified; F17.210 Nicotine dependence, cigarettes, uncomplicated; Z88.8 Allergy status to other drugs, medicaments and biological substances; Z79.1 Long term (current) use of non-steroidal anti-inflammatories (NSAID); Z79.82 Long term (current) use of aspirin; Z79.891 Long term (current) use of opiate analgesic; Z79.899 Other long term (current) drug therapy | CPT/HCPCS: G0463 ==

== ENCOUNTER 2017-10-28 11:08 | Outpatient (RCR) | payer OTHER | END 2017-11-12 | LOC: M PT 11:08 | DX: Z51.89 Encounter for other specified aftercare (principal); G82.21 Paraplegia, complete | CPT/HCPCS: 97110 ==

== ENCOUNTER → 2017-11-11 | Outpatient (CLI) | payer OTHER | END | disposition home or self-care (01) | LOC: M PAIN 10:00 | DX: G89.29 Other chronic pain (principal); M79.2 Neuralgia and neuritis, unspecified; M47.816 Spondylosis without myelopathy or radiculopathy, lumbar region; M96.1 Postlaminectomy syndrome, not elsewhere classified; I25.10 Atherosclerotic heart disease of native coronary artery without angina pectoris; E78.5 Hyperlipidemia, unspecified; E11.9 Type 2 diabetes mellitus without complications; J44.9 Chronic obstructive pulmonary disease, unspecified; N52.9 Male erectile dysfunction, unspecified; K21.9 Gastro-esophageal reflux disease without esophagitis; F33.9 Major depressive disorder, recurrent, unspecified; F41.9 Anxiety disorder, unspecified; E55.9 Vitamin D deficiency, unspecified; Z79.899 Other long term (current) drug therapy; Z79.82 Long term (current) use of aspirin; Z88.8 Allergy status to other drugs, medicaments and biological substances; F17.210 Nicotine dependence, cigarettes, uncomplicated | CPT/HCPCS: G0463 ==

== ENCOUNTER 2017-11-14 11:13 | Outpatient (RCR) | payer OTHER | END 2017-12-13 | LOC: M PT 11:13 | DX: Z51.89 Encounter for other specified aftercare (principal); G82.21 Paraplegia, complete | CPT/HCPCS: 97110 ==

== ENCOUNTER → 2017-12-09 | Outpatient (CLI) | payer OTHER ==
[2017-12-09 12:29] LABS: HEMATOCRIT 44.6 % (42.0-52.0); HEMOGLOBIN 13.7 g/dl (14.0-18.0); MEAN CORPUSCULAR HEMOGLOBIN 28.9 pg (27.0-33.0); MEAN CORPUSCULAR HGB CONC 30.7 g/dl (32.0-36.5); MEAN CORPUSCULAR VOLUME 94.1 fl (80.0-96.0); PLATELET COUNT, AUTOMATED 263 10^3/uL (150-450); RED BLOOD COUNT 4.74 10^6/uL (4.30-6.10); RED CELL DISTRIBUTION WIDTH 16.1 % (11.5-14.5); WHITE BLOOD COUNT 11.3 10^3/uL (4.0-10.0)
[2017-12-09 12:48] LABS: ESTIMATED AVERAGE GLUCOSE 200 MG/DL (60-110); HEMOGLOBIN A1c 8.6 %
[2017-12-09 13:10] LABS: ALBUMIN 2.8 GM/DL (3.2-5.2); ALKALINE PHOSPHATASE 194 U/L (45-117); ALT/SGPT 26 U/L (12-78); ANION GAP 2 MEQ/L (8-16); AST/SGOT 26 U/L (7-37); BILIRUBIN,TOTAL 0.3 MG/DL (0.2-1.0); BLOOD UREA NITROGEN 13 MG/DL (7-18); C REACTIVE PROTEIN QUANTITATIV 7.68 MG/DL (0.00-0.30); CALCIUM LEVEL 8.8 MG/DL (8.8-10.2); CARBON DIOXIDE LEVEL 31 MEQ/L (21-32); CHLORIDE LEVEL 103 MEQ/L (98-107); CHOLESTEROL LEVEL 109 MG/DL (<200); CHOLESTEROL RISK RATIO 3.303 (<5); CPK CREATINE PHOSPHOKINASE 49 U/L (39-308); CREATININE FOR GFR 1.21 MG/DL (0.70-1.30); GLOMERULAR FILTRATION RATE > 60.0 (>49); GLUCOSE, FASTING 292 MG/DL (70-100); HDL CHOLESTEROL 33 MG/DL (>40); LDL CHOLESTEROL 39.4 MG/DL (<100); NON-HDL-C 76 MG/DL; POTASSIUM SERUM 4.9 MEQ/L (3.5-5.1); SODIUM LEVEL 136 MEQ/L (136-145); TOTAL PROTEIN 7.5 GM/DL (6.4-8.2); TRIGLYCERIDES LEVEL 183 MG/DL (<150)
[2017-12-10 14:14] LABS: H PYLORI SERUM QUANT IgG ABY 0.65 (0.00-0.79)
== END ==
LOC: M LAB 11:49
DX: Z79.01 Long term (current) use of anticoagulants (principal); E78.2 Mixed hyperlipidemia; K76.0 Fatty (change of) liver, not elsewhere classified; E11.8 Type 2 diabetes mellitus with unspecified complications
CPT/HCPCS: 82550

== ENCOUNTER → 2017-12-09 | Outpatient (CLI) | payer OTHER | LOC: M PAIN 10:15 | DX: M47.816 Spondylosis without myelopathy or radiculopathy, lumbar region (principal); M79.2 Neuralgia and neuritis, unspecified; M96.1 Postlaminectomy syndrome, not elsewhere classified; I25.2 Old myocardial infarction; E78.5 Hyperlipidemia, unspecified; E11.9 Type 2 diabetes mellitus without complications; J43.9 Emphysema, unspecified; G47.33 Obstructive sleep apnea (adult) (pediatric); K21.9 Gastro-esophageal reflux disease without esophagitis; F32.9 Major depressive disorder, single episode, unspecified; F41.9 Anxiety disorder, unspecified; F17.210 Nicotine dependence, cigarettes, uncomplicated; Z79.82 Long term (current) use of aspirin; Z79.891 Long term (current) use of opiate analgesic; Z79.899 Other long term (current) drug therapy; Z88.8 Allergy status to other drugs, medicaments and biological substances; Z90.49 Acquired absence of other specified parts of digestive tract; Z86.19 Personal history of other infectious and parasitic diseases; Z86.74 Personal history of sudden cardiac arrest; Z87.39 Personal history of other diseases of the musculoskeletal system and connective tissue | CPT/HCPCS: G0463 ==

== ENCOUNTER → 2017-12-09 | Outpatient (CLI) | payer OTHER ==
[2017-12-09 12:30] LABS: BASO % 0.4 % (0.0-1.0); EOS # 0.3 10^3/uL (0.0-0.50); EOS % 2.5 % (0.0-3.0); HEMATOCRIT 44.6 % (42.0-52.0); HEMOGLOBIN 13.6 g/dl (14.0-18.0); IMMATURE GRANULOCYTE # 0.1 10^3/uL (0-0); IMMATURE GRANULOCYTE % 0.5 % (0-3.0); LYMPH # 1.2 10^3/uL (1.5-4.5); LYMPH % 10.3 % (24.0-44.0); MEAN CORPUSCULAR HEMOGLOBIN 28.9 pg (27.0-33.0); MEAN CORPUSCULAR HGB CONC 30.5 g/dl (32.0-36.5); MEAN CORPUSCULAR VOLUME 94.7 fl (80.0-96.0); MONO # 0.9 10^3/uL (0.0-0.8); MONO % 7.6 % (0.0-5.0); NEUTROPHILS # 8.8 10^3/uL (1.8-7.7); NEUTROPHILS % 78.7 % (36.0-66.0); PLATELET COUNT, AUTOMATED 260 10^3/uL (150-450); RED BLOOD COUNT 4.71 10^6/uL (4.30-6.10); RED CELL DISTRIBUTION WIDTH 16.1 % (11.5-14.5); WHITE BLOOD COUNT 11.2 10^3/uL (4.0-10.0)
[2017-12-09 12:59] LABS: ANION GAP 5 MEQ/L (8-16); BLOOD UREA NITROGEN 13 MG/DL (7-18); CALCIUM LEVEL 8.9 MG/DL (8.8-10.2); CARBON DIOXIDE LEVEL 31 MEQ/L (21-32); CHLORIDE LEVEL 102 MEQ/L (98-107); GLOMERULAR FILTRATION RATE > 60.0 (>49); GLUCOSE, FASTING 307 MG/DL (70-100); POTASSIUM SERUM 4.8 MEQ/L (3.5-5.1); SODIUM LEVEL 138 MEQ/L (136-145)
== END ==
LOC: M LAB 11:52
DX: I25.10 Atherosclerotic heart disease of native coronary artery without angina pectoris (principal)

== ENCOUNTER 2017-12-18 10:58 | Outpatient (RCR) | payer OTHER | END 2018-01-12 | LOC: M PT 10:58 | DX: Z51.89 Encounter for other specified aftercare (principal); G82.21 Paraplegia, complete | CPT/HCPCS: 97110 ==

== ENCOUNTER → 2018-01-02 | Outpatient (CLI) | payer OTHER | LOC: M PAIN 10:00 | DX: G89.29 Other chronic pain (principal); M79.2 Neuralgia and neuritis, unspecified; M47.816 Spondylosis without myelopathy or radiculopathy, lumbar region; M96.1 Postlaminectomy syndrome, not elsewhere classified; I25.10 Atherosclerotic heart disease of native coronary artery without angina pectoris; E78.5 Hyperlipidemia, unspecified; J44.9 Chronic obstructive pulmonary disease, unspecified; E11.51 Type 2 diabetes mellitus with diabetic peripheral angiopathy without gangrene; G47.33 Obstructive sleep apnea (adult) (pediatric); G82.21 Paraplegia, complete; N52.9 Male erectile dysfunction, unspecified; K21.9 Gastro-esophageal reflux disease without esophagitis; F41.9 Anxiety disorder, unspecified; F32.9 Major depressive disorder, single episode, unspecified; E55.9 Vitamin D deficiency, unspecified; M51.36 Other intervertebral disc degeneration, lumbar region; F17.210 Nicotine dependence, cigarettes, uncomplicated; Z79.82 Long term (current) use of aspirin; Z79.891 Long term (current) use of opiate analgesic; Z79.899 Other long term (current) drug therapy; Z88.8 Allergy status to other drugs, medicaments and biological substances | CPT/HCPCS: G0463 ==

== ENCOUNTER 2018-02-03 11:00 | Outpatient (RCR) | payer OTHER | END 2018-02-12 | LOC: M PT 11:00 | DX: Z51.89 Encounter for other specified aftercare (principal); G82.21 Paraplegia, complete | CPT/HCPCS: 97110 ==

== ENCOUNTER 2018-02-17 11:25 | Outpatient (RCR) | payer OTHER | END 2018-03-14 | LOC: M PT 11:25 | DX: Z51.89 Encounter for other specified aftercare (principal); G82.21 Paraplegia, complete ==

== ENCOUNTER → 2018-02-17 | Outpatient (CLI) | payer OTHER | LOC: M PAIN 09:30 | DX: M79.2 Neuralgia and neuritis, unspecified (principal); M47.816 Spondylosis without myelopathy or radiculopathy, lumbar region; M96.1 Postlaminectomy syndrome, not elsewhere classified; M21.371 Foot drop, right foot; I51.3 Intracardiac thrombosis, not elsewhere classified; I25.2 Old myocardial infarction; E78.5 Hyperlipidemia, unspecified; E11.9 Type 2 diabetes mellitus without complications; J43.9 Emphysema, unspecified; G47.33 Obstructive sleep apnea (adult) (pediatric); K21.9 Gastro-esophageal reflux disease without esophagitis; F41.9 Anxiety disorder, unspecified; F32.9 Major depressive disorder, single episode, unspecified; F17.210 Nicotine dependence, cigarettes, uncomplicated; Z79.82 Long term (current) use of aspirin; Z79.84 Long term (current) use of oral hypoglycemic drugs; Z79.899 Other long term (current) drug therapy; Z88.8 Allergy status to other drugs, medicaments and biological substances; Z86.74 Personal history of sudden cardiac arrest; Z87.39 Personal history of other diseases of the musculoskeletal system and connective tissue; Z95.810 Presence of automatic (implantable) cardiac defibrillator; Z87.09 Personal history of other diseases of the respiratory system | CPT/HCPCS: G0463 ==

== ENCOUNTER → 2018-02-26 | Outpatient (CLI) | payer OTHER ==
[2018-02-26 11:52] LABS: BASO # 0.1 10^3/uL (0.0-0.2); BASO % 0.5 % (0.0-1.0); EOS # 0.2 10^3/uL (0.0-0.50); EOS % 1.8 % (0.0-3.0); HEMATOCRIT 45.5 % (42.0-52.0); HEMOGLOBIN 14.3 g/dl (13.5-17.5); IMMATURE GRANULOCYTE % 0.5 % (0-3.0); LYMPH # 1.5 10^3/uL (1.5-4.5); LYMPH % 14.6 % (24.0-44.0); MEAN CORPUSCULAR HEMOGLOBIN 29.4 pg (27.0-33.0); MEAN CORPUSCULAR HGB CONC 31.4 g/dl (32.0-36.5); MEAN CORPUSCULAR VOLUME 93.6 fl (80.0-96.0); MONO # 0.6 10^3/uL (0.0-0.8); MONO % 5.7 % (0.0-5.0); NEUTROPHILS # 7.9 10^3/uL (1.8-7.7); NEUTROPHILS % 76.9 % (36.0-66.0); PLATELET COUNT, AUTOMATED 270 10^3/uL (150-450); RED BLOOD COUNT 4.86 10^6/uL (4.30-6.10); RED CELL DISTRIBUTION WIDTH 16.5 % (11.5-14.5); RETIC HEMOGLOBIN EQUIVALENT 34.4 pg (24-36); RETICULOCYTE # 93.3 10^9/L (17-77); RETICULOCYTE % 1.9 % (0.5-1.5); WHITE BLOOD COUNT 10.3 10^3/uL (4.0-10.0)
[2018-02-26 12:20] LABS: ALBUMIN 3.2 GM/DL (3.2-5.2); ALBUMIN/GLOBULIN RATIO 0.71 (1.00-1.93); ALKALINE PHOSPHATASE 166 U/L (45-117); ALT/SGPT 30 U/L (12-78); ANION GAP 8 MEQ/L (8-16); AST/SGOT 27 U/L (7-37); BILIRUBIN,TOTAL 0.3 MG/DL (0.2-1.0); BLOOD UREA NITROGEN 18 MG/DL (7-18); CARBON DIOXIDE LEVEL 29 MEQ/L (21-32); CHLORIDE LEVEL 102 MEQ/L (98-107); CREATININE FOR GFR 1.12 MG/DL (0.70-1.30); GLOMERULAR FILTRATION RATE > 60.0 (>49); GLUCOSE, FASTING 269 MG/DL (70-100); MAGNESIUM LEVEL 2.1 MG/DL (1.8-2.4); POTASSIUM SERUM 4.2 MEQ/L (3.5-5.1); SODIUM LEVEL 139 MEQ/L (136-145); TOTAL PROTEIN 7.7 GM/DL (6.4-8.2)
[2018-02-26 12:42] LABS: PTH INTACT 28.1 PG/ML (18.5-88.0); TOTAL 25(OH) VITAMIN D 18.6 NG/ML (30.0-100.0)
[2018-02-26 12:52] LABS: ESTIMATED AVERAGE GLUCOSE 192 MG/DL (60-110); HEMOGLOBIN A1c 8.3 %
== END ==
LOC: M LAB 11:06
DX: D50.9 Iron deficiency anemia, unspecified (principal); K76.0 Fatty (change of) liver, not elsewhere classified; E11.8 Type 2 diabetes mellitus with unspecified complications; E78.2 Mixed hyperlipidemia
CPT/HCPCS: 83735

== ENCOUNTER 2018-03-17 11:10 | Outpatient (RCR) | payer OTHER | END 2018-04-14 | LOC: M PT 03-25 10:30 | DX: Z51.89 Encounter for other specified aftercare (principal); G82.21 Paraplegia, complete; M79.671 Pain in right foot ==

== ENCOUNTER → 2018-03-31 | Outpatient (CLI) | payer OTHER | LOC: M PAIN 09:45 | DX: M79.2 Neuralgia and neuritis, unspecified (principal); M47.816 Spondylosis without myelopathy or radiculopathy, lumbar region; M96.1 Postlaminectomy syndrome, not elsewhere classified; M21.371 Foot drop, right foot; E11.9 Type 2 diabetes mellitus without complications; K21.9 Gastro-esophageal reflux disease without esophagitis; F32.9 Major depressive disorder, single episode, unspecified; F41.9 Anxiety disorder, unspecified; F17.210 Nicotine dependence, cigarettes, uncomplicated; I25.10 Atherosclerotic heart disease of native coronary artery without angina pectoris; R01.1 Cardiac murmur, unspecified; Z79.82 Long term (current) use of aspirin; Z79.891 Long term (current) use of opiate analgesic; Z79.899 Other long term (current) drug therapy; Z95.810 Presence of automatic (implantable) cardiac defibrillator; Z93.3 Colostomy status | CPT/HCPCS: G0463 ==

== ENCOUNTER → 2018-05-22 | Outpatient (CLI) | payer OTHER | LOC: M RAD 12:46 | DX: N52.9 Male erectile dysfunction, unspecified (principal) | CPT/HCPCS: 71046 ==

== ENCOUNTER → 2018-06-02 | Outpatient (REF) | payer OTHER ==
[2018-06-02 19:11] LABS: APPEARANCE, URINE CLOUDY (CLEAR); BACTERIA, URINE AUTO 2+ (NEGATIVE); BILIRUBIN, URINE AUTO NEGATIVE (NEGATIVE); BLOOD, URINE BLOOD 1+ (NEGATIVE); COLOR, URINE YELLOW (YELLOW); GLUCOSE, URINE (UA) AUTO NEGATIVE (NEGATIVE); KETONE, URINE AUTO NEGATIVE (NEGATIVE); LEUKOCYTE ESTERASE, URINE AUTO 3+ (NEGATIVE); MUCUS, URINE SMALL (NEGATIVE); NITRITE, URINE AUTO POSITIVE (NEGATIVE); PROTEIN, URINE AUTO NEGATIVE (NEGATIVE); RBC, URINE AUTO 21 /HPF (0-3); SPECIFIC GRAVITY URINE AUTO 1.009 (1.002-1.035); SQUAMOUS EPITHELIAL CELL UR AU 0 /HPF (0-6); UROBILINOGEN, URINE AUTO 0.2 mg/dL (0.0-2.0); WBC, URINE AUTO TNTC /HPF (0-3)
== END ==
LOC: M SFHCPLAZ 17:10
DX: R30.0 Dysuria (principal)

== ENCOUNTER → 2018-06-19 | Outpatient (CLI) | payer OTHER | LOC: M PAIN 10:00 | DX: M79.2 Neuralgia and neuritis, unspecified (principal); M47.816 Spondylosis without myelopathy or radiculopathy, lumbar region; M96.1 Postlaminectomy syndrome, not elsewhere classified; M21.371 Foot drop, right foot; I25.10 Atherosclerotic heart disease of native coronary artery without angina pectoris; E78.5 Hyperlipidemia, unspecified; E11.51 Type 2 diabetes mellitus with diabetic peripheral angiopathy without gangrene; J44.9 Chronic obstructive pulmonary disease, unspecified; G47.33 Obstructive sleep apnea (adult) (pediatric); N52.9 Male erectile dysfunction, unspecified; K21.9 Gastro-esophageal reflux disease without esophagitis; F32.9 Major depressive disorder, single episode, unspecified; F41.9 Anxiety disorder, unspecified; E55.9 Vitamin D deficiency, unspecified; F17.210 Nicotine dependence, cigarettes, uncomplicated; Z90.49 Acquired absence of other specified parts of digestive tract; Z79.891 Long term (current) use of opiate analgesic; Z98.1 Arthrodesis status; Z95.810 Presence of automatic (implantable) cardiac defibrillator; Z88.8 Allergy status to other drugs, medicaments and biological substances; Z79.82 Long term (current) use of aspirin; Z79.899 Other long term (current) drug therapy | CPT/HCPCS: G0463 ==

== ENCOUNTER → 2018-06-23 | Outpatient (REF) | payer OTHER ==
[2018-06-23 14:32] LABS: APPEARANCE, URINE CLOUDY (CLEAR); BACTERIA, URINE AUTO 3+ (NEGATIVE); BILIRUBIN, URINE AUTO NEGATIVE (NEGATIVE); BLOOD, URINE BLOOD NEGATIVE (NEGATIVE); COLOR, URINE YELLOW (YELLOW); GLUCOSE, URINE (UA) AUTO 3+ mg/dL (NEGATIVE); KETONE, URINE AUTO NEGATIVE (NEGATIVE); LEUKOCYTE ESTERASE, URINE AUTO 3+ (NEGATIVE); MUCUS, URINE SMALL (NEGATIVE); NITRITE, URINE AUTO POSITIVE (NEGATIVE); PROTEIN, URINE AUTO 1+ mg/dL (NEGATIVE); RBC, URINE AUTO 36 /HPF (0-3); SPECIFIC GRAVITY URINE AUTO 1.018 (1.002-1.035); SQUAMOUS EPITHELIAL CELL UR AU 1 /HPF (0-6); UROBILINOGEN, URINE AUTO 0.2 mg/dL (0.0-2.0); WBC, URINE AUTO TNTC /HPF (0-3); YEAST LIKE CELL URINE AUTO SMALL
== END ==
LOC: M SFHCPLAZ 13:15
DX: R39.9 Unspecified symptoms and signs involving the genitourinary system (principal)

== ENCOUNTER → 2018-07-21 | Outpatient (REF) | payer OTHER ==
[2018-07-21 11:30] LABS: APPEARANCE, URINE CLOUDY (CLEAR); BACTERIA, URINE AUTO NEGATIVE (NEGATIVE); BILIRUBIN, URINE AUTO NEGATIVE (NEGATIVE); BLOOD, URINE BLOOD NEGATIVE (NEGATIVE); COLOR, URINE YELLOW (YELLOW); GLUCOSE, URINE (UA) AUTO NEGATIVE (NEGATIVE); KETONE, URINE AUTO NEGATIVE (NEGATIVE); LEUKOCYTE ESTERASE, URINE AUTO 3+ (NEGATIVE); MUCUS, URINE SMALL (NEGATIVE); NITRITE, URINE AUTO NEGATIVE (NEGATIVE); PROTEIN, URINE AUTO 1+ mg/dL (NEGATIVE); RBC, URINE AUTO 51 /HPF (0-3); SPECIFIC GRAVITY URINE AUTO 1.017 (1.002-1.035); SQUAMOUS EPITHELIAL CELL UR AU 0 /HPF (0-6); UROBILINOGEN, URINE AUTO 0.2 mg/dL (0.0-2.0); WBC, URINE AUTO TNTC /HPF (0-3)
== END ==
LOC: M LAB REF 11:10
DX: Z87.440 Personal history of urinary (tract) infections (principal)
CPT/HCPCS: 81001

== ENCOUNTER → 2018-08-12 | Outpatient (CLI) | payer OTHER ==
[2018-08-12 12:03] LABS: BASO # 0.1 10^3/uL (0.0-0.2); BASO % 0.7 % (0.0-1.0); EOS # 0.3 10^3/uL (0.0-0.50); EOS % 2.9 % (0.0-3.0); HEMOGLOBIN 14.9 g/dl (13.5-17.5); IMMATURE GRANULOCYTE % 0.5 % (0-3.0); LYMPH # 1.5 10^3/uL (1.5-4.5); LYMPH % 15.9 % (24.0-44.0); MEAN CORPUSCULAR HEMOGLOBIN 30.2 pg (27.0-33.0); MEAN CORPUSCULAR HGB CONC 31.7 g/dl (32.0-36.5); MEAN CORPUSCULAR VOLUME 95.1 fl (80.0-96.0); MONO # 0.7 10^3/uL (0.0-0.8); MONO % 7.4 % (0.0-5.0); NEUTROPHILS # 7.1 10^3/uL (1.8-7.7); NEUTROPHILS % 72.6 % (36.0-66.0); PLATELET COUNT, AUTOMATED 234 10^3/uL (150-450); RED BLOOD COUNT 4.94 10^6/uL (4.30-6.10); RED CELL DISTRIBUTION WIDTH 14.3 % (11.5-14.5); WHITE BLOOD COUNT 9.7 10^3/uL (4.0-10.0)
[2018-08-12 12:26] LABS: ALBUMIN 3.5 GM/DL (3.2-5.2); ALKALINE PHOSPHATASE 138 U/L (45-117); ALT/SGPT 26 U/L (12-78); ANION GAP 4 MEQ/L (8-16); AST/SGOT 21 U/L (7-37); BILIRUBIN,TOTAL 0.3 MG/DL (0.2-1.0); BLOOD UREA NITROGEN 24 MG/DL (7-18); C REACTIVE PROTEIN QUANTITATIV 1.61 MG/DL (0.00-0.30); CALCIUM LEVEL 8.9 MG/DL (8.8-10.2); CARBON DIOXIDE LEVEL 30 MEQ/L (21-32); CHLORIDE LEVEL 101 MEQ/L (98-107); CHOLESTEROL LEVEL 154 MG/DL (<200); CPK CREATINE PHOSPHOKINASE 88 U/L (39-308); GLOMERULAR FILTRATION RATE > 60.0 (>49); GLUCOSE, FASTING 246 MG/DL (70-100); HDL CHOLESTEROL 35 MG/DL (>40); LDL CHOLESTEROL 68 MG/DL (<100); NON-HDL-C 119 MG/DL; POTASSIUM SERUM 4.4 MEQ/L (3.5-5.1); PSA SCREENING 0.8 NG/ML (< 4.0); SODIUM LEVEL 135 MEQ/L (136-145); TOTAL PROTEIN 7.4 GM/DL (6.4-8.2); TRIGLYCERIDES LEVEL 256 MG/DL (<150)
[2018-08-12 12:45] LABS: ESTIMATED AVERAGE GLUCOSE 180 MG/DL (60-110); HEMOGLOBIN A1c 7.9 %
== END ==
LOC: M LAB 11:09
DX: E11.8 Type 2 diabetes mellitus with unspecified complications (principal)
CPT/HCPCS: 82550

== ENCOUNTER → 2018-08-17 | Outpatient (CLI) | payer OTHER ==
[~2018-08-17] MED LIST changes: -/CELE20CA OR; -/PANT40TA; -/PANT40TA OR; -ABIL2TAB PO; -ABILIFY PO; -ACET1TAB17 PO; -ADVA115A IN; -ALB2.5NEB INH; -ALBU17IN INH; -ALLO10TA PO; -AMBI10TA OR; -AMIT25TA PO; -AMRIX; -AQUAOIN2 TOP; -ATARAX; -BACL10TA2; -BACL10TA2 OR; -CALC1CAP31 PO; -CENTTAB PO; -CERTTAB3; -CERTTAB3 PO; -COMBIN INH; -COUM2TAB22 PO; -DOXY100T PO; -ENDOCET OR; -EUCECRE3 TOP; -FERR1TAB8 PO; -FERR325T3 PO; -FLEXERIL PO; -FLUC200T2 PO; -GABA-283 PO; -GABA600T PO; -GABA800T PO; +GASTROGRAFIN SOLUTION 30ML (Q9963) As Ordered; -GLUC850T; -GLUC850T OR; -HYDR2TAB2 PO; -HYDROCODONE/APAP; -INDO25CA2 OR; +ISOVUE-370 76% 100ML VIAL (Q9967) As Ordered; -K-TA1TAB PO; -LOTR2AER3 TOP; -MELO7.5T3 PO; -METO5TAB2 PO; -MILKSUS PO; -MULTIVIT PO; -MYLASUS16 PO; -NEUR100C PO; -NEUR400C; -NEUR400C OR; -NICOINH INH; -NYST1POW9 TOP; -OXYC-141 PO; -OXYC-403 PO; -OXYC-423 PO; -OXYC10TA12 PO; -OXYC15TA76 PO; -OXYC1TAB23 PO; -OXYC20TA2 PO; -OXYC20TA40 PO; -OXYC5CAP4 OR; -PANT40TA2 PO; -PARO40TA2 PO; -PAXI30TA; -PAXI30TA OR; -PERC5TAB12 PO; -PERC5TAB8 OR; -PRAV20TA2 OR; -PREG50CA PO; -PROC1INJ5 INJ; -TYLE325T5 PO; -VICO5TAB; -VIT D 2000 PO; -VIT D 4000 OR; -VITA100066 PO; -VITAMIN D50000 UNT; -VITMTA PO; -WARF4TAB52 PO; -ZINC220T PO; -ZOCO20TA; -ZOCO40TA; -ZOCO40TA OR; -[UNRECOGNIZED DRUG - CODE] IM
== END ==
LOC: M RAD 15:49
DX: N39.0 Urinary tract infection, site not specified (principal)
CPT/HCPCS: Q9963

== ENCOUNTER → 2018-09-18 | Outpatient (REF) | payer OTHER ==
[~2018-09-18] MED LIST changes: +/CELE20CA OR; +/PANT40TA; +/PANT40TA OR; +ABIL2TAB PO; +ABILIFY PO; +ACET1TAB55 PO; +ADVA115A IN; +ALB2.5NEB INH; +ALBU17IN INH; +ALLO10TA PO; +AMBI10TA OR; +AMIT25TA PO; +AMRIX; +AQUAOIN2 TOP; +ASPI1TAB PO; +ATARAX; +BACL10TA2; +BACL10TA2 OR; +CALC1CAP31 PO; +CENTTAB PO; +CERTTAB3 PO; +COMBIN INH; +COUM2TAB22 PO; +DOXY100T PO; +ENDOCET OR; +EUCECRE3 TOP; +FERR1TAB8 PO; +FERR325T3 PO; +FLEXERIL PO; +FLUC200T2 PO; +GABA-845 PO; +GABA600T4 PO; +GABA800T4 PO; -GASTROGRAFIN SOLUTION 30ML (Q9963) As Ordered; +GLUC850T; +GLUC850T OR; +HYDR2TAB2 PO; +HYDROCODONE/APAP; +INDO25CA2 OR; -ISOVUE-370 76% 100ML VIAL (Q9967) As Ordered; +K-TA1TAB PO; +LOTR2AER3 TOP; +MACR100C43 PO; +MELO7.5T3 PO; +METO5TAB2 PO; +MILK120011 PO; +MULTIVIT PO; +MYLASUS16 PO; +NEUR100C PO; +NEUR400C; +NEUR400C OR; +NICOINH INH; +NYST1POW9 TOP; +OXYC-141 PO; +OXYC-403 PO; +OXYC-423 PO; +OXYC10TA12 PO; +OXYC15TA76 PO; +OXYC1TAB23 PO; +OXYC20TA2 PO; +OXYC20TA40 PO; +OXYC5CAP4 OR; +PANT40TA3 PO; +PARO40TA2 PO; +PAXI30TA; +PAXI30TA OR; +PERC5TAB12 PO; +PERC5TAB8 OR; +PRAV20TA2 OR; +PREG50CA PO; +PROC1INJ5 INJ; +TYLE325T5 PO; +VICO5TAB; +VIT D 2000 PO; +VIT D 4000 OR; +VITA100066 PO; +VITAMIN D50000 UNT; +VITMTA PO; +WARF4TAB52 PO; +ZINC220T PO; +ZOCO20TA; +ZOCO40TA; +ZOCO40TA OR; +[UNRECOGNIZED DRUG - CODE] IM
[2018-09-18 18:58] LABS: APPEARANCE, URINE CLOUDY (CLEAR); BACTERIA, URINE AUTO 1+ (NEGATIVE); BILIRUBIN, URINE AUTO NEGATIVE (NEGATIVE); BLOOD, URINE BLOOD NEGATIVE (NEGATIVE); COLOR, URINE YELLOW (YELLOW); GLUCOSE, URINE (UA) AUTO NEGATIVE (NEGATIVE); KETONE, URINE AUTO NEGATIVE (NEGATIVE); LEUKOCYTE ESTERASE, URINE AUTO 3+ (NEGATIVE); MUCUS, URINE SMALL (NEGATIVE); NITRITE, URINE AUTO NEGATIVE (NEGATIVE); PROTEIN, URINE AUTO 1+ mg/dL (NEGATIVE); RBC, URINE AUTO 7 /HPF (0-3); SPECIFIC GRAVITY URINE AUTO 1.023 (1.002-1.035); SQUAMOUS EPITHELIAL CELL UR AU 1 /HPF (0-6); UROBILINOGEN, URINE AUTO 0.2 mg/dL (0.0-2.0); WBC, URINE AUTO TNTC /HPF (0-3)
== END ==
LOC: M LABSMT 16:24
PROVIDERS: ATTEND Urology Pediatric Urology
DX: D50.9 Iron deficiency anemia, unspecified (principal); N18.3 Chronic kidney disease, stage 3 (moderate); E11.8 Type 2 diabetes mellitus with unspecified complications; N47.1 Phimosis

== ENCOUNTER → 2018-09-22 | Outpatient (CLI) | payer OTHER ==
[~2018-09-22] MED LIST changes: +CORE25TA PO; +CRES10TA32 PO
[2018-09-22 13:22] LABS: BASO % 0.4 % (0.0-1.0); EOS # 0.2 10^3/uL (0.0-0.50); EOS % 2.1 % (0.0-3.0); LYMPH # 1.8 10^3/uL (1.5-4.5); LYMPH % 18.4 % (24.0-44.0); MEAN CORPUSCULAR HEMOGLOBIN 30.5 pg (27.0-33.0); MEAN CORPUSCULAR HGB CONC 32.6 g/dl (32.0-36.5); MEAN CORPUSCULAR VOLUME 93.7 fl (80.0-96.0); MONO # 0.8 10^3/uL (0.0-0.8); MONO % 7.8 % (0.0-5.0); NEUTROPHILS # 6.9 10^3/uL (1.8-7.7); NEUTROPHILS % 70.8 % (36.0-66.0); PLATELET COUNT, AUTOMATED 212 10^3/uL (150-450); RED BLOOD COUNT 4.91 10^6/uL (4.30-6.10); WHITE BLOOD COUNT 9.7 10^3/uL (4.0-10.0)
[2018-09-22 13:39] LABS: PROTHROMBIN TIME 13.3 SECONDS (12.1-14.4)
[2018-09-22 13:40] LABS: PARTIAL THROMBOPLASTIN TIME 29.1 SECONDS (25.4-37.6)
[2018-09-22 13:49] LABS: HEMOGLOBIN A1c 8.1 %
[2018-09-22 13:57] LABS: ALBUMIN 3.3 GM/DL (3.2-5.2); ALT/SGPT 25 U/L (12-78); BILIRUBIN,TOTAL 0.3 MG/DL (0.2-1.0); BLOOD UREA NITROGEN 16 MG/DL (7-18); CALCIUM LEVEL 8.9 MG/DL (8.8-10.2); CARBON DIOXIDE LEVEL 26 MEQ/L (21-32); CHLORIDE LEVEL 103 MEQ/L (98-107); CREATININE FOR GFR 1.16 MG/DL (0.70-1.30); GLOMERULAR FILTRATION RATE > 60.0 (>49); GLUCOSE, FASTING 194 MG/DL (70-100); IRON (FE) 59 UG/DL (65-175); PERCENT SATURATION 16.6 % (19.7-50.0); POTASSIUM SERUM 4.3 MEQ/L (3.5-5.1); SODIUM LEVEL 138 MEQ/L (136-145); TOTAL IRON BINDING CAPACITY 356 UG/DL (250-450); TOTAL PROTEIN 7.2 GM/DL (6.4-8.2)
[2018-09-22 14:03] LABS: PTH INTACT 32.1 PG/ML (18.5-88.0); TOTAL 25(OH) VITAMIN D 26.6 NG/ML (30.0-100.0)
--- NOTE | 2018-09-22 15:41 | ECGEPIP ---
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 Electronically Signed On 09-22-2018 15:40:54 EST by Francis Gordillo
--- NOTE | 2018-09-23 02:45 | REP ---
Clinical: Trauma. Technique: Frontal view of the chest with multiple views of the right and left hemithorax. Findings: Frontal view of the chest demonstrates no acute cardiopulmonary process. Multiple views of the right and left hemithorax demonstrates no obvious acute rib fracture or pathology. Impression: Normal bilateral rib series Electronically Signed by Adithya Zuniga MD 09/23/2018 02:38 A
--- NOTE | 2018-09-23 02:57 | REP ---
Clinical: Acquired phimosis Technique: Two supine views of the abdomen and pelvis. Findings: Bowel gas pattern is essentially nonspecific. Evidence for ostomy overlies the right abdominal wall. Prior cholecystectomy and abdominal surgery noted. Skeletal structures demonstrate age-related degenerative changes. Impression: Postsurgical changes including ostomy. Nonspecific bowel gas pattern. Electronically Signed by Adithya Zuniga MD 09/23/2018 02:50 A
--- NOTE | 2018-09-23 06:22 | REP ---
Clinical: Technique: Real time mckeon scale and color Doppler evaluation using linear high frequency transducer. Findings: The right testicle is normal in contour, size, echogenicity, and vascularity without evidence for torsion, infectious/inflammatory process, or mass lesion. Right testicle measures 4.0 x 2.2 x 3.3 cm. Small right hydrocele noted along with epididymal head cysts measuring up to 3.4 x 2.0 x 3.0 cm. No varicoceles. The left testicle is normal in contour, and vascularity without evidence for torsion or infectious/inflammatory process. Left testicle measures 2.6 x 1.3 x 2.0 cm and includes a vague hypoechoic area along the inferior margin measuring 6 mm diameter. Left testicle measures 2.6 x 1.3 x 2.0 cm. Small left hydrocele noted. No obvious varicocele or epididymal cysts. Impression: 1. Large right epididymal cysts measuring up to 3.4 cm. 2. Small left testicle with 6 mm hypoechoic focus is otherwise nonspecific in appearance. Electronically Signed by Adithya Zuniga MD 09/23/2018 06:14 A
[2018-09-23 14:37] LABS: PSA TOTAL 0.7 ng/mL (0.0-4.0)
== END ==
LOC: M RAD 13:20
PROVIDERS: ATTEND Urology Pediatric Urology
DX: N50.3 Cyst of epididymis (principal); R93.813 Abnormal radiologic findings on diagnostic imaging of testicles, bilateral; N47.1 Phimosis; D50.9 Iron deficiency anemia, unspecified; N18.3 Chronic kidney disease, stage 3 (moderate); E11.8 Type 2 diabetes mellitus with unspecified complications; R00.1 Bradycardia, unspecified; I45.10 Unspecified right bundle-branch block; I44.5 Left posterior fascicular block; N50.819 Testicular pain, unspecified

== ENCOUNTER → 2018-09-23 | Outpatient (CLI) | payer OTHER ==
--- NOTE | 2018-10-12 00:49 | ECWPNPC ---
PATIENT NAME: MACKENZIE NÚÑEZ : 1955 GENDER: MALE VISIT DATE: 09/23/2018 DISCHARGE DATE: 09/23/18 1708 VISIT LOCKED DATE TIME: PHYSICIAN: LUX BETTENCOURT MD PHYSICIAN PAGER NO: [phone] RESOURCE: LXU BETTENCOURT MD REASON FOR APPOINTMENT 1. W/C BACK PT OF SW HISTORY OF PRESENT ILLNESS HISTORY OF PRESENT ILLNESS: PAIN THE PATIENT DESCRIBES THE PAIN... 63 YEAR OLD MALE PATIENT WITH A HISTORY OF CHRONIC LOW BACK PAIN. THE PATIENT DESCRIBES THE PAIN ACHING, SORE, TENDER, SHARP, AND LASTING ALL DAY WITH A PAIN SCORE OF 8-9/10 DEPENDING ON PHYSICAL ACTIVITY. THE PATIENT WAS HURT IN A WORK RELATED INJURY ON 04/15/2008 WHILE WORKING FOR [employer] A FOREIGN DIPLOMAT WHEN HE SLIPPED ON A WET FLOOR AND CAUGHT HIMSELF CAUSING HIM TO INJURE HIS LOW BACK. THE PATIENT HAS HAD FOUR BACK SURGERIES AND HIS MOST RECENT WAS DONE THROUGH THE FRONT AND HE HAS SINCE BEEN IN A WHEELCHAIR. THE PATIENT HAS TRIED PHYSICAL THERAPY IN THE PAST, BUT SAYS IT DID NOT HELP HIM. THE PATIENT SAYS THE PAIN STARTS IN HIS LOW BACK AND RADIATES DOWN HIS RIGHT LEG. THE PATIENT IS CURRENTLY USING OXYCODONE NEEDED TO AID IN PAIN RELIEF AND SAYS THAT IT GIVES HIM SIGNIFICANT RELIEF. PATIENT DENIES UNEXPLAINABLE WEIGHT LOSS, FEVER, CHILLS, NEW CHANGES ON HIS URINARY OR BOWEL CONTROL. FALL RISK SCREENING: SCREENING :NO FALLS IN THE PAST YEAR CURRENT MEDICATIONS TAKING ACETOMINOPHEN-325 MG 325 MG TABLET 1 OR 2 TABS ORALLY EVERY FOUR HOURS PRN TAKING MAY HAVE - - LARGE NON-SKID SOCKS FOR DX=G82.21 (PARAPLEGIA) DAILY TAKING PREVAIL WET WIPES - MISCELLANEOUS DIRECTED FOR DX=G82.21 (PARAPLEGIA) DAILY TAKING PHYSICAL THERAPY EVALUATE AND TREAT PHYSICAL THERAPY DIRECTED OUT PATIENT PHYSICAL THERAPY 1-3X/WEEK DX: G82.21, NOTES: PATIENT GOING TO HAND CARRY TAKING LANCETS - MISCELLANEOUS DIRECTED DX: E11.9 TWICE A DAY TAKING GAIT/TRANSFER BELT - MISCELLANEOUS DIRECTED TAKING HYDROCERIN - CREAM DIRECTED EXTERNALLY BID TO LOWER LEGS FROM KNEES DOWN TAKING BLOOD GLUCOSE TEST - STRIP DIRECTED INTRADERMALLY BID DX: E11.9 TAKING MAY USE 1 - BRACE FOR LEFT LOWER EXTREMITY DIRECTED DX:R27.0 DAILY CONTRACTURE OF LOWER JOINT, NOTES: FAX TO [phone] TAKING MULTIVITAMIN & MINERAL TABLET 1 TAB(S) ORALLY DAILY TAKING PANTOPRAZOLE SODIUM 40 MG TABLET DELAYED RELEASE 1 TABLET ORALLY ONCE A DAY TAKING FERROUS SULFATE 325 (65 FE) MG TABLET 1 TABLET ORALLY ONCE A DAY TAKING ASPIRIN 81 MG TABLET CHEWABLE 1 TABLET ORALLY ONCE A DAY TAKING ROSUVASTATIN CALCIUM 10 MG TABLET 1 TABLET ORALLY ONCE A DAY TAKING GABAPENTIN 800 MG TABLET 1 TABLET ORALLY FOUR TIMES DAILY TAKING CARVEDILOL 25 MG TABLET 1 CAP ORALLY TWICE DAILY TAKING OXYCODONE HCL 10 MG TABLET 1 TABLET NEEDED ORALLY DAILY PRN SEVERE PAIN MDD=1 20 TABS FOR 30 DAYS TAKING PAROXETINE HCL 40 MG TABLET 1 TABLET IN THE MORNING ORALLY ONCE A DAY TAKING CERTAVITE/ANTIOXIDANTS - TABLET 1 TABLET ORALLY ONCE A DAY TAKING FLUCONAZOLE 200 MG TABLET 2 TABLETS ORALLY ONCE A DAY TAKING LEVAQUIN 500 MG TABLET 1 TABLET ORALLY ONCE A DAY NOT-TAKING PANTOPRAZOLE SODIUM 40 MG TABLET DELAYED RELEASE 1 TABLET ORALLY ONCE A DAY, NOTES: DUPLICATE NOT-TAKING ROSUVASTATIN CALCIUM 10 MG TABLET 1 TABLET ORALLY ONCE A DAY, NOTES: DUPLICATE NOT-TAKING FERROUS SULFATE 325 (65 FE) MG TABLET 1 TABLET ORALLY ONCE A DAY, NOTES: DUPLICATE NOT-TAKING GABAPENTIN 800 MG TABLET TAKE ONE TABLET BY MOUTH FOUR TIMES A DAY , NOTES: DUPLICATE NOT-TAKING MIRALAX - PACKET 1 PACKET MIXED WITH 8 OUNCES OF FLUID ORALLY ONCE A DAY MEDICATION LIST REVIEWED AND RECONCILED WITH THE PATIENT PAST MEDICAL HISTORY CAD, S/P AWMI POST-OP LAMINECTOMY-05/2017 VERY SMALL APICAL THROMBUS, LVEF 40%-AKINESIS OF APEX, MID ANT, MID ANTEROSEPTAL, LV DIASTOLIC DYSFX BY 05/2017 TTE-ANTECOL/07/2017 RST S ISCHEMIA BUT FOCAL/GLOBAL ABNORMALITY, LVEF 28%, HIGH RISK-BILLKA/12/2017 CATH-NO SIGNIFICANT CAD-GABY/SP ICD 01/12/2018-GABY HYPERLIPIDEMIA, 2B PAD T2DM NID COPD/EMPHYSEMA - FEV1 3.7 IN 2007, LIKELY FROM LONG-TERM HEAVY SMOKING ARON--INTOLERANT OF CPAP ED GERD CHRONIC MDD/AMBROSIO VITAMIN D DEFICIENCY PERFORATED ILIAC AND AORTA S/P EMERGENT ABDOMINAL AORTO BI-ILIAC ARTERY BYPASS GRAFT--REQUIRED 17 LITERS SALINE, 25 UNITS PRBC, 336 UNITS PLATELETS, 1 LITER FFP, 6 LITER CELL-SAVER ISCHEMIA LOWER EXTREMITIES WITH COMPARTMENT SYNDROME, REQUIRING BILAT 4 COMPATMENT FASCIOTOMIES SEPTIC SHOCK 2 PERFORATED VISCUS S/P EMERGENT LEFT COLECTOMY (C R COLOSTOMY), OPEN CHOLECYSTECTOMY, LIVER PACKING, ABTHERA REPLACMENT CHOLECYSTITIS, BILE LEAK POST CHOLECYSTECTYOMY LEFT COLECTOMY AND RT PARTIAL COLECTOMY WITH COLOSTOMY BRADYARHYTHMIA WITH CARDIAC ARREST/IWMI INFECTED AORTO BI-ILIAC BYPASS GRAFT C 2 CHRONIC DISSEMINATATED CANDIDIASIS AND S. EPIDERMIDIS BACTEREMIA ENTEROCTANEOUS FISTULAE H/O ACRODERMATITIS ENTEROPTHICA (ZINC-DEFICIENCY DERMATITIS) PROLONGED ICU/MECH VENTILATRION WITH TRACHEOSTOMY, SUBSEQUENT CLOSURE OF TRACH H/O STAGE 4 SACRAL DECUBITUS PSEUDOMONUS OSTEOMYELITIS HIT--HEPARIN INDUCED THROMBOCYTOPENIA H/O RECURRENT GOUT, L PODAGRA LUMBAR DJD- L3/4 MOD CCS, L4/5 MILD C GRADE 1 LITHESIS AND L L4 COMPRESSION IN NF, L5/S1 DIFFUSE BULGE C MINIMAL TS COMPRESSION BY 04/2017 CT LS SPINE ALLERGIES REMERON: NIGHTMARES: SIDE EFFECTS WELLBUTRIN: AGITATION: SIDE EFFECTS ZOLOFT: DIARRHEA: SIDE EFFECTS PROZAC: DEPRESSION: SIDE EFFECTS SURGICAL HISTORY APPENDECTOMY RIH LEFT ELBOW ULNAR NERVE TRANSPOSITION LUMBAR SPINAL FUSION 04/24 COLONOSCOPY--NL 11/17 REMOVAL SCREWS, RODS LUMBAR SPINE, BONE GRAFTING 06/25 EXP LAPAROTOMY, LEFT COLECTOMY, RIGHT COLOSTOMY 2013 ABORTED L4-L5 DISCECTOMY COMPLICATED BY INTRAOPERATIVE ILIAC VEIN AND AORTIC PERFORATION 07/2014 TRACHEOSTOMY 07/2014 CHOLECYSTECTOMY, SECONDARY TO BILE LEAK 07/2014 BILATERAL LOWER EXTREMITY FASCIOTOMIES R/T COMPARTMENT SYNDROME 07/29 DEFIBRILATOR PLACEMENT (R) SIDE 01/08/18 NEW PACEMAKER WIRE 06/05/18 FAMILY HISTORY FATHER: , LUNG CANCER, DIAGNOSED WITH CANCER MOTHER: , DIABETES, TYPE II, DIAGNOSED WITH DIABETES, OTHER SIBLINGS: DIABETES, TYPE II, DIAGNOSED WITH DIABETES, HEART DISEASE 6 BROTHER(S) , 5 SISTER(S) . MOM WITH COPD, CHF. BROTHER WITH HEART DISEASE, DIABETES. SOCIAL HISTORY GENERAL: TOBACCO USE ARE YOU A:CURRENT SMOKER ARE YOU INTERESTED IN QUITTING?NOT READY TO QUIT COUNSELED THE PATIENT ON SMOKING EFFECTS, EDUCATION [id number]/09/2019 HOW MANY CIGARETTES A DAY DO YOU SMOKE?6-10 HOW SOON AFTER YOU WAKE UP DO YOU SMOKE YOUR FIRST CIGARETTE?AFTER 60 MIN HOW OFTEN DO YOU SMOKE CIGARETTES?EVERY DAY PATIENT COUNSELED ON THE DANGERS OF TOBACCO USE AND URGED TO QUIT:09/23/2018 SMOKING CESSATION INFORMATION GIVEN08/27/2018 BMI CARE GOAL FOLLOW-UP ABOVE NORMAL BMI FOLLOW-UPGIVING ENCOURAGEMENT TO EXERCISE ALCOHOL SCREENING POINTS: 0, INTERPRETATION: NEGATIVE. RECREATIONAL DRUG USE DENIES. 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 DIET: REGULAR. EXERCISE: WALKING. MARITAL STATUS: -MATEO. PAIN CLINIC PFS, CLERGY, PUBLIC HEALTH REFERRALS HAS THE PATIENT BEEN EDUCATED REGARDING HIS/HER PLAN OF CARE?YES HAS THE PATIENT BEEN EDUCATED REGARDING PAIN, THE RISK FOR PAIN, THE IMPORTANCE OF EFFECTIVE PAIN MANAGEMENT, AND THE PAIN ASSESSMENT PROCESS?YES ADVANCE DIRECTIVE ADVANCE DIRECTIVE DISCUSSED WITH PATIENT:YES POA - MATEO NÚÑEZ (); DECLINED HCP INFORMATION. REVIEWED WITH PATIENT 09/23/18 0991 JS. HOSPITALIZATION/MAJOR DIAGNOSTIC PROCEDURE COMPLICATIONS FOLLOWING ATTEMPTED LS SPINE SURGERY 07/18/14-05/17/15 SBO, UTI, INFLUENZA-RESOLVED C NGT 09/2015 BOWEL OBSTRUCTION DECEMBER/2016 ABORTED L4-5 DISKECTOMY, COMPLIACTED BY INTRAOPERATIVE ILIACVEIN AND AORTIC PERFORATION 07/29 BILAT LOWER EXT FASCIOTOMIES (COMPARTMENT SYNDROME) 07/29 EXP LAPAROTOMY, LEFT COLECTOMY, RIGHT COLOSTOMY 07/29 OPEN CHOLECYTECTOMY, SECONADRY BILE LEAK 07/29 TRACHEOSTOMY 07/29 REMOVAL INFECTED AORTOBIFEMORAL GRAFT, INSERTION OF SECOND ABF GRAFT 08/28 TEMPORARY PACEMAKER 08/28 ERCP, SPHICTEROTOMY, BILARY STENT PLACEMENT 09/29 FIRST OF SEVERAL SACRAL DECUB DEBRIDEMENTS 11/27 EGD--BILIARY STENT REMOVED 11/27 TRACH REMOVAL/CLOSURE 03/29 SMC-ELEVATED INR 7.9 C BLEEDING AT OSTOMY SITE 04/19-05/01 HOSPITALIZED FOR DEFIBRILATOR PLACEMENT 01/08/18-01/20/18 NEW PACEMAKER WIRE 06/04/18 REVIEW OF SYSTEMS REVIEWED BY: PROVIDER: LUX BETTENCOURT MD . CONSTITUTIONAL: ANY CHANGE IN YOUR MEDICAL CONDITION? YES, UTI, E. COLI (ESBL) . CHILLS NO . FEVER NO . INFECTION: DO YOU HAVE NEW INFECTIONS? YES, UTI, ON ANTIBIOTICS . DO YOU HAVE HISTORY OF MRSA? NO . MUSCULOSKELETAL: ANY NEW PATTERNS OF PAIN OR NUMBNESS? NO . GASTROENTEROLOGY: ANY NEW CHANGE IN BOWEL CONTROL? NO . GENITOURINARY: ANY NEW CHANGE IN BLADDER CONTROL? NO . IS THERE A CHANCE YOU COULD BE ? NO . HEMATOLOGY/LYMPH: DO YOU TAKE ANY BLOOD THINNERS? (FOR EXAMPLE- COUMADIN, PLAVIX, AGGRENOX, PLATEL, PRADAXA, OR XARELTO) NO . WHEN WAS YOUR LAST DOSE? DATE: TIME: . NEUROLOGY: HAVE YOU FALLEN IN THE PAST 6 MONTHS? NO . ANY NEW EXTREMITY NUMBNESS OR WEAKNESS? NO . CARDIOLOGY: DO YOU HAVE A PACEMAKER OR DEFIBRILLATOR? YES, DEFIBRILLATOR . RESPIRATORY: HAVE YOU BEEN SICK IN THE PAST WEEK? NO . FEVER NO . FLU LIKE SYMPTOMS? NO . COUGH NO . INTEGUMENTARY: DO YOU HAVE ANY RASHES OR OPEN SORES? YES, STATES SMALL BED SORES TO BACK AND BOTTOM, COVERED WITH DRESSINGS, SEES DR. RAZO . ALLERGIC/IMMUNO: ARE YOU ALLERGIC TO SHELLFISH OR IV DYE? NO . ANY NEW ALLERGIES? NO . PSYCHIATRIC: DO YOU HAVE THOUGHTS OF HURTING YOURSELF OR SOMEONE ELSE? NO . ARE YOU ABUSED, NEGLECTED, OR IN AN UNSAFE ENVIRONMENT? NO . ENDOCRINOLOGY: ARE YOU DIABETIC? NO . OTHER: DO YOU NEED ANY PRESCRIPTIONS? NO . IF YES, PLEASE LIST: ____ . ANY NEW PROBLEMS WITH YOUR MEDICATIONS? NO . WHEN DID YOU LAST EAT? ____ . WHEN DID YOU LAST DRINK? ____ . WHAT DID YOU LAST DRINK? ____ . NAME OF PERSON DRIVING YOU HOME? ____ . DO YOU HAVE ANY OTHER QUESTIONS OR CONCERNS NO . VITAL SIGNS WT 200 LBS, HT 69 IN, BMI 29.53 INDEX, BP 171/79 MM HG, REPEAT BP 148/84 MANUAL, HR 48 /MIN, RR 18 /MIN, TEMP 96.7 F, OXYGEN SAT % 96%, SAFE IN ENV? (Y/N) YES, NA INITIALS SC 14:24, REVIEWED BY: OSMAN. EXAMINATION GENERAL EXAMINATION: PATIENT IS ALERT O X 3 AND COOPERATIVE. THE PATIENT IS IN A WHEELCHAIR. SEVERE TENDERNESS OVER THE LOW BACK AREA. ASSESSMENTS LUMBAR POST-LAMINECTOMY SYNDROME - M96.1 (PRIMARY) TREATMENT LUMBAR POST-LAMINECTOMY SYNDROME CLINICAL NOTES: WE DISCUSSED SEVERAL ISSUES WITH MR. NÚÑEZ'S PAIN MANAGEMENT CASE. THE PATIENT WILL CONTINUE USING THE OXYCODONE NEEDED SINCE IT HAS BEEN KEEPING HIS PAIN UNDER CONTROL. ISTOP _[id number] WAS REVIEWED. URINE TOXICOLOGY DONE ON 09/23/2017 SHOWS CONCURRENT RESULTS. THE PATIENT WILL FOLLOW UP IN 2 MONTHS. INSTRUCTIONS WERE GIVEN, QUESTIONS WERE ANSWERED, PATIENT REPORTS UNDERSTANDING AND AGREES WITH THE PLAN. I, TOR PUGA, DOCUMENTED THE ABOVE INFORMATION ACTING A SCRIBE FOR DR. BETTENCOURT. I HAVE REVIEWED THE ABOVE DOCUMENT, WRITTEN BY TOR GÓMEZIBSridhar AND I VERIFY THAT IT IS ACCURATE. PROCEDURES PN WORKMANS' COMP OPINION IN YOUR OPINION, WAS THE INCIDENT THAT THE PATIENT DESCRIBED THE COMPETENT MEDICAL CAUSE OF THIS INJURY/ILLNESS? YES ARE THE PATIENT'S COMPLAINTS CONSISTENT WITH HIS/HER HISTORY OF THE INJURY/ILLNESS? YES IS THE PATIENT'S HISTORY OF THE INJURY/ILLNESS CONSISTENT WITH YOUR OBJECTIVE FINDING? YES WHAT IS THE PERCENTAGE OF TEMPORARY IMPAIRMENT? TOTAL = 100% IS THE PATIENT WORKING? YES DOCTOR ON SITE: LUX CARPIO MD PROCEDURE CODES G8427 CURRENT MEDS W/DOSAGES DOCUMENTED G8730 PAIN ASSESS POS TOOL F/U PLAN DOC FA211 ESTABILISHED PATIENT [facility] FACILITY CHARGE DISPOSITION & COMMUNICATION FOLLOW UP 2 MONTHS ELECTRONICALLY SIGNED BY LUX BETTENCOURT MD, MD ON 10/11/2018 AT 04:35 PM EST DISCLAIMER : THIS IS A VISIT SUMMARY EXTRACTED FROM THE [employer] CHART. IT IS NOT A COPY OF THE [employer] PROGRESS NOTE. MARIAELENA
== END ==
LOC: M PAIN 14:30
PROVIDERS: ATTEND Anesthesiology
DX: M96.1 Postlaminectomy syndrome, not elsewhere classified (principal); E78.5 Hyperlipidemia, unspecified; E11.9 Type 2 diabetes mellitus without complications; J45.909 Unspecified asthma, uncomplicated; K21.9 Gastro-esophageal reflux disease without esophagitis; E55.9 Vitamin D deficiency, unspecified; G47.33 Obstructive sleep apnea (adult) (pediatric); F17.210 Nicotine dependence, cigarettes, uncomplicated; Z79.82 Long term (current) use of aspirin; Z79.899 Other long term (current) drug therapy; Z88.8 Allergy status to other drugs, medicaments and biological substances; Z86.79 Personal history of other diseases of the circulatory system; Z87.39 Personal history of other diseases of the musculoskeletal system and connective tissue

== ENCOUNTER 2018-09-24 11:33 | Outpatient (RCR) | payer OTHER ==
[~2018-09-24 11:33] MED LIST changes: -ASPI1TAB PO; -CORE25TA PO; -CRES10TA32 PO; -MACR100C43 PO
[2018-09-29] MEDS ORDERED: ASPI1TAB PO (15:14)
[2018-09-29] MEDS ORDERED: OXYC10TA12 PO (15:14)
[2018-09-29] MEDS ORDERED: MACR100C43 PO (15:14)
[2018-10-01] MEDS ORDERED: CORE25TA PO (09:43)
[2018-10-01] MEDS ORDERED: CRES10TA32 PO (09:45)
== END 2018-10-15 ==
LOC: M PT 11:33
PROVIDERS: ATTEND Family Medicine
DX: Z51.89 Encounter for other specified aftercare (principal); R29.898 Other symptoms and signs involving the musculoskeletal system

== ENCOUNTER → 2018-10-01 | Day surgery (SDC) | payer OTHER ==
[~2018-10-01] VITALS: Ht 175.3 cm; Wt 90.7 kg
[~2018-10-01] MED LIST changes: +ASPI1TAB PO; +BACITRACIN OINT 30GM As Ordered ONE; +BUPIVACAINE HCL 0.25% 30 ML VIAL As Ordered ONE; +CORE25TA PO; +CRES10TA32 PO; +LIDOCAINE 1% SDV INJ 30 ML VIAL As Ordered ONE; +LIDOCAINE 2% INJ 100 MG/5 ML SDV (FOR ANES.) As Ordered ONE; +LR 1,000 ML IV SCH; +MACR100C43 PO; +MEPERIDINE INJ 25 MG/ML VIAL (J2175) IV PRN; +METOCLOPRAMIDE INJ 10MG/2ML VIAL (J2765) IV PRN; +MIDAZOLAM INJ 2 MG/2 ML VIAL (J2250) As Ordered ONE; +ONDANSETRON 4MG/2ML VIAL (J2405) As Ordered ONE; +ONDANSETRON 4MG/2ML VIAL (J2405) IV PRN; +PERCOCET 5MG/325MG TAB As Ordered ONE; +PERCOCET 5MG/325MG TAB PO PRN; +PROPOFOL 200 MG/20 ML VIAL As Ordered ONE; +ceFAZolin 1GM INJ (J0690 PER 500MG) As Ordered ONE; +ceFAZolin SOD 1 GM in D5W MINI-BAG PLUS 50 ML IV ONE; +dexameTHASONE 4 MG/ML 1ML VIAL (J1100) As Ordered ONE; +fentaNYL 100 MCG/2 ML INJECTION (J3010) As Ordered ONE; +fentaNYL 100 MCG/2 ML INJECTION (J3010) IV PRN
[2018-10-01 13:55] VITALS: BP 159/77
--- NOTE | 2018-10-01 15:56 | RO ---
DATE OF PROCEDURE: 10/01/2018 PREPROCEDURE DIAGNOSIS: Phimosis. POSTPROCEDURE DIAGNOSIS: Phimosis. OPERATIVE PROCEDURE: Circumcision. SURGEON: Geraldo La MD DATABASE MARKETING SPECIALIST: None. ANESTHESIA: Monitored anesthesia care (MAC) with local anesthetic. OPERATIVE INDICATIONS: This is a 63-year-old male with phimosis making it difficult to retract the foreskin. He is brought to the operating room today for the above listed procedure. DESCRIPTION OF PROCEDURE: The patient was brought to the operating room and MAC anesthesia was administered. Prophylactic antibiotics were infused. He was then placed in the supine position and prepped and draped in the usual sterile fashion. At this point, 0.25% Marcaine and 1% lidocaine local anesthetic was then injected at the base of the penis for a penile block. We then inserted a #16-[place] Burnett catheter into the bladder and the balloon was filled with 10 mL of sterile water. This was connected to gravity drainage to drain as the patient had persistent urinary incontinence. At this point, an #0 Vicryl retraction stitch was placed through the glans penis. We then made two circumcising incisions at the level of the coronal sulcus with the foreskin retracted over the glans and then with the foreskin pulled back. These circumcising incisions were then connected using Bovie electrocautery and then all the foreskin between the incisions was then removed using electrocautery. Once the foreskin had been removed, hemostasis was obtained using coagulation current. At this point, the skin of the penile shaft was then reapproximated to the glans penis using interrupted #3-0 chromic sutures. Once all the sutures were placed, dressings were applied and the retraction stitch was removed and this marked the conclusion of the procedure. The patient was then awakened from anesthesia and transported to the recovery room in stable condition. ESTIMATED BLOOD LOSS: 10 mL COMPLICATIONS: None. SPECIMENS: Foreskin. PLAN: The patient will followup in clinic in approximately two weeks for a postoperative visit and to have his catheter removed. MARIAELENA
== END | disposition home or self-care (01) ==
LOC: M SDC 08:33
PROVIDERS: ATTEND Urology
DX: N47.1 Phimosis (principal); I12.9 Hypertensive chronic kidney disease with stage 1 through stage 4 chronic kidney disease, or unspecified chronic kidney disease; E11.22 Type 2 diabetes mellitus with diabetic chronic kidney disease; I25.2 Old myocardial infarction; N18.3 Chronic kidney disease, stage 3 (moderate); I25.10 Atherosclerotic heart disease of native coronary artery without angina pectoris; I25.5 Ischemic cardiomyopathy; I51.3 Intracardiac thrombosis, not elsewhere classified; E78.2 Mixed hyperlipidemia; M47.816 Spondylosis without myelopathy or radiculopathy, lumbar region; K76.0 Fatty (change of) liver, not elsewhere classified; R27.0 Ataxia, unspecified; R20.8 Other disturbances of skin sensation; M79.A9 Nontraumatic compartment syndrome of other sites; F41.9 Anxiety disorder, unspecified; J44.9 Chronic obstructive pulmonary disease, unspecified; R06.83 Snoring; G47.33 Obstructive sleep apnea (adult) (pediatric); K21.9 Gastro-esophageal reflux disease without esophagitis; B49 Unspecified mycosis; L89.154 Pressure ulcer of sacral region, stage 4; N31.9 Neuromuscular dysfunction of bladder, unspecified; F32.9 Major depressive disorder, single episode, unspecified; I73.9 Peripheral vascular disease, unspecified; M10.9 Gout, unspecified; N48.89 Other specified disorders of penis; E55.9 Vitamin D deficiency, unspecified; M21.371 Foot drop, right foot; B37.7 Candidal sepsis; D50.9 Iron deficiency anemia, unspecified; R07.9 Chest pain, unspecified; F17.200 Nicotine dependence, unspecified, uncomplicated; E66.9 Obesity, unspecified; Z68.30 Body mass index [BMI] 30.0-30.9, adult; Z88.5 Allergy status to narcotic agent; Z88.8 Allergy status to other drugs, medicaments and biological substances; Z79.899 Other long term (current) drug therapy; Z79.82 Long term (current) use of aspirin; Z95.810 Presence of automatic (implantable) cardiac defibrillator; Z87.440 Personal history of urinary (tract) infections; Z79.01 Long term (current) use of anticoagulants
CPT/HCPCS: 54161; 88304; J0690; J1100; J2250; J2405; J3010

== ENCOUNTER → 2018-10-25 | Outpatient (REF) | payer OTHER ==
[~2018-10-25] MED LIST changes: -BACITRACIN OINT 30GM As Ordered ONE; -BUPIVACAINE HCL 0.25% 30 ML VIAL As Ordered ONE; -LIDOCAINE 1% SDV INJ 30 ML VIAL As Ordered ONE; -LIDOCAINE 2% INJ 100 MG/5 ML SDV (FOR ANES.) As Ordered ONE; -LR 1,000 ML IV SCH; -MEPERIDINE INJ 25 MG/ML VIAL (J2175) IV PRN; -METOCLOPRAMIDE INJ 10MG/2ML VIAL (J2765) IV PRN; -MIDAZOLAM INJ 2 MG/2 ML VIAL (J2250) As Ordered ONE; -ONDANSETRON 4MG/2ML VIAL (J2405) As Ordered ONE; -ONDANSETRON 4MG/2ML VIAL (J2405) IV PRN; -PERCOCET 5MG/325MG TAB As Ordered ONE; -PERCOCET 5MG/325MG TAB PO PRN; -PROPOFOL 200 MG/20 ML VIAL As Ordered ONE; -ceFAZolin 1GM INJ (J0690 PER 500MG) As Ordered ONE; -ceFAZolin SOD 1 GM in D5W MINI-BAG PLUS 50 ML IV ONE; -dexameTHASONE 4 MG/ML 1ML VIAL (J1100) As Ordered ONE; -fentaNYL 100 MCG/2 ML INJECTION (J3010) As Ordered ONE; -fentaNYL 100 MCG/2 ML INJECTION (J3010) IV PRN
== END ==
LOC: M LAB REF 09:30
PROVIDERS: ATTEND Nurse Practitioner Women's Health
DX: N39.0 Urinary tract infection, site not specified (principal)

== ENCOUNTER → 2018-11-10 | Outpatient (REF) | payer OTHER ==
[2018-11-10 13:31] LABS: APPEARANCE, URINE CLEAR (CLEAR); BACTERIA, URINE AUTO NEGATIVE (NEGATIVE); BILIRUBIN, URINE AUTO NEGATIVE (NEGATIVE); BLOOD, URINE BLOOD NEGATIVE (NEGATIVE); COLOR, URINE YELLOW (YELLOW); GLUCOSE, URINE (UA) AUTO NEGATIVE (NEGATIVE); KETONE, URINE AUTO NEGATIVE (NEGATIVE); LEUKOCYTE ESTERASE, URINE AUTO NEGATIVE (NEGATIVE); MUCUS, URINE SMALL (NEGATIVE); NITRITE, URINE AUTO NEGATIVE (NEGATIVE); PROTEIN, URINE AUTO NEGATIVE (NEGATIVE); RBC, URINE AUTO 1 /HPF (0-3); SPECIFIC GRAVITY URINE AUTO 1.017 (1.002-1.035); SQUAMOUS EPITHELIAL CELL UR AU 0 /HPF (0-6); UROBILINOGEN, URINE AUTO 0.2 mg/dL (0.0-2.0); WBC, URINE AUTO 1 /HPF (0-3)
== END ==
LOC: M LAB REF 12:22
PROVIDERS: ATTEND Urology
DX: N39.0 Urinary tract infection, site not specified (principal)

== ENCOUNTER → 2018-11-12 | Outpatient (RCR) | payer OTHER | LOC: M PT 10-20 14:23 | PROVIDERS: ATTEND Family Medicine | DX: Z51.89 Encounter for other specified aftercare (principal); R29.898 Other symptoms and signs involving the musculoskeletal system ==

== ENCOUNTER → 2018-11-27 | Outpatient (CLI) | payer OTHER ==
--- NOTE | 2018-12-11 02:00 | ECWPNPC ---
PATIENT NAME: MACKENZIE NÚÑEZ : 1955 GENDER: MALE VISIT DATE: 11/27/2018 DISCHARGE DATE: 11/27/18 1116 VISIT LOCKED DATE TIME: PHYSICIAN: LUX BETTENCOURT MD PHYSICIAN PAGER NO: [phone] RESOURCE: LUX BETTENCOURT MD REASON FOR APPOINTMENT 1. W/C LOW BACK HISTORY OF PRESENT ILLNESS HISTORY OF PRESENT ILLNESS: PAIN THE PATIENT DESCRIBES THE PAIN... 63 YEAR OLD MALE PATIENT WITH A HISTORY OF CHRONIC LOW BACK PAIN. THE PATIENT DESCRIBES THE PAIN ACHING, SORE, TENDER, SHARP, SHOOTING, AND CONTINUOUS WITH A PAIN SCORE OF 8-9/10 DEPENDING ON PHYSICAL ACTIVITY. 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 THE PATIENT SAYS THAT HIS PAIN STARTS IN HIS LOW BACK AND RADIATES DOWN INTO HIS LEGS, MAINLY HIS RIGHT LEG. THE PATIENT HAS A HISTORY OF FOUR BACK SURGERIES AND HAS BEEN IN A WHEELCHAIR SINCE THE MOST RECENT SURGERY THAT WAS DONE THROUGH THE FRONT. THE PATIENT SAYS HE HAS DIFFICULTY DOING DAILY ACTIVITIES SUCH COOKING AND CLEANING DUE TO THIS PAIN. THE PATIENT IS CURRENTLY USING 1 OXYCODONE PER DAY NEEDED TO AID IN PAIN RELIEF. PATIENT DENIES UNEXPLAINABLE WEIGHT LOSS, FEVER, CHILLS, NEW CHANGES ON HIS URINARY OR BOWEL CONTROL. FALL RISK SCREENING: SCREENING : NO FALLS IN THE PAST YEAR. CURRENT MEDICATIONS TAKING PAROXETINE HCL 40 MG TABLET 1 TABLET IN THE MORNING ORALLY ONCE A DAY TAKING FERROUS SULFATE 325 (65 FE) MG TABLET 1 TABLET ORALLY ONCE A DAY TAKING ASPIRIN 81 MG TABLET CHEWABLE 1 TABLET ORALLY ONCE A DAY TAKING GABAPENTIN 800 MG TABLET 1 TABLET ORALLY FOUR TIMES DAILY TAKING MIRALAX - PACKET 1 PACKET MIXED WITH 8 OUNCES OF FLUID ORALLY ONCE A DAY TAKING CARVEDILOL 25 MG TABLET 1 CAP ORALLY TWICE DAILY TAKING FLUCONAZOLE 200 MG TABLET 1 TAB ORALLY ONCE A DAY TAKING ACETOMINOPHEN-325 MG 325 MG TABLET 1 OR 2 TABS ORALLY EVERY FOUR HOURS PRN TAKING MAY HAVE - - LARGE NON-SKID SOCKS FOR DX=G82.21 (PARAPLEGIA) DAILY TAKING PREVAIL WET WIPES - MISCELLANEOUS DIRECTED FOR DX=G82.21 (PARAPLEGIA) DAILY TAKING LANCETS - MISCELLANEOUS DIRECTED DX: E11.9 TWICE A DAY TAKING GAIT/TRANSFER BELT - MISCELLANEOUS DIRECTED TAKING HYDROCERIN - CREAM DIRECTED EXTERNALLY BID TO LOWER LEGS FROM KNEES DOWN TAKING BLOOD GLUCOSE TEST - STRIP DIRECTED INTRADERMALLY BID DX: E11.9 TAKING MAY USE 1 - BRACE FOR LEFT LOWER EXTREMITY DIRECTED DX:R27.0 DAILY CONTRACTURE OF LOWER JOINT, NOTES: FAX TO [phone] TAKING MULTIVITAMIN & MINERAL TABLET 1 TAB(S) ORALLY DAILY TAKING CERTAVITE/ANTIOXIDANTS - TABLET 1 TABLET ORALLY ONCE A DAY TAKING PANTOPRAZOLE SODIUM 40 MG TABLET DELAYED RELEASE 1 TABLET ORALLY ONCE A DAY TAKING LOSARTAN POTASSIUM 25 MG TABLET 1 TABLET ORALLY EVERY MORNING TAKING OXYCODONE HCL 10 MG TABLET 1 TABLET NEEDED ORALLY DAILY PRN SEVERE PAIN MDD=1 20 TABS FOR 30 DAYS TAKING ROSUVASTATIN CALCIUM 10 MG TABLET 1 TABLET ORALLY ONCE A DAY NOT-TAKING PAROXETINE HCL 40 MG TABLET 1 TABLET IN THE MORNING ORALLY ONCE A DAY, NOTES: DUPLICATE NOT-TAKING CERTAVITE/ANTIOXIDANTS - TABLET 1 TABLET ORALLY ONCE A DAY, NOTES: DUPLICATE NOT-TAKING FLUCONAZOLE 200 MG TABLET 1 TAB ORALLY ONCE A DAY, NOTES: DUPLICATE NOT-TAKING LEVAQUIN 500 MG TABLET 1 TABLET ORALLY ONCE A DAY NOT-TAKING MACROBID 100 MG CAPSULE 1 CAPSULE WITH FOOD ORALLY EVERY 12 HRS NOT-TAKING MACROBID 100 MG CAPSULE 1 CAPSULE WITH FOOD ORALLY EVERY 12 HRS MEDICATION LIST REVIEWED AND RECONCILED WITH THE PATIENT PAST MEDICAL HISTORY CAD, S/P AWMI POST-OP LAMINECTOMY-05/2017 VERY SMALL APICAL THROMBUS, LVEF 40%-AKINESIS OF APEX, MID ANT, MID ANTEROSEPTAL, LV DIASTOLIC DYSFX BY 05/2017 TTE-ANTECOL/07/2017 RST S ISCHEMIA BUT FOCAL/GLOBAL ABNORMALITY, LVEF 28%, HIGH RISK-SLEZKA/12/2017 CATH-NO SIGNIFICANT CAD-GABY/SP ICD 01/12/2018-GABY HYPERLIPIDEMIA, 2B PAD T2DM NID COPD/EMPHYSEMA - FEV1 3.7 IN 2007, LIKELY FROM LONG-TERM HEAVY SMOKING ARON--INTOLERANT OF CPAP ED GERD CHRONIC MDD/AMBROSIO VITAMIN D DEFICIENCY PERFORATED ILIAC AND AORTA S/P EMERGENT ABDOMINAL AORTO BI-ILIAC ARTERY BYPASS GRAFT--REQUIRED 17 LITERS SALINE, 25 UNITS PRBC, 336 UNITS PLATELETS, 1 LITER FFP, 6 LITER CELL-SAVER ISCHEMIA LOWER EXTREMITIES WITH COMPARTMENT SYNDROME, REQUIRING BILAT 4 COMPATMENT FASCIOTOMIES SEPTIC SHOCK 2 PERFORATED VISCUS S/P EMERGENT LEFT COLECTOMY (C R COLOSTOMY), OPEN CHOLECYSTECTOMY, LIVER PACKING, ABTHERA REPLACMENT CHOLECYSTITIS, BILE LEAK POST CHOLECYSTECTYOMY LEFT COLECTOMY AND RT PARTIAL COLECTOMY WITH COLOSTOMY BRADYARHYTHMIA WITH CARDIAC ARREST/IWMI INFECTED AORTO BI-ILIAC BYPASS GRAFT C 2 CHRONIC DISSEMINATATED CANDIDIASIS AND S. EPIDERMIDIS BACTEREMIA ENTEROCTANEOUS FISTULAE H/O ACRODERMATITIS ENTEROPTHICA (ZINC-DEFICIENCY DERMATITIS) [facility] TRACHEOSTOMY, SUBSEQUENT CLOSURE OF TRACH H/O STAGE 4 SACRAL DECUBITUS PSEUDOMONUS OSTEOMYELITIS HIT--HEPARIN INDUCED THROMBOCYTOPENIA H/O RECURRENT GOUT, L PODAGRA LUMBAR DJD- L3/4 MOD CCS, L4/5 MILD C GRADE 1 LITHESIS AND L L4 COMPRESSION IN NF, L5/S1 DIFFUSE BULGE C MINIMAL TS COMPRESSION BY 04/2017 CT LS SPINE ALLERGIES REMERON: NIGHTMARES - SIDE EFFECTS WELLBUTRIN: AGITATION - SIDE EFFECTS ZOLOFT: DIARRHEA - SIDE EFFECTS PROZAC: DEPRESSION - SIDE EFFECTS SURGICAL HISTORY APPENDECTOMY RIH LEFT ELBOW ULNAR NERVE TRANSPOSITION LUMBAR SPINAL FUSION 04/24 COLONOSCOPY--NL 11/17 REMOVAL SCREWS, RODS LUMBAR SPINE, BONE GRAFTING 06/25 EXP LAPAROTOMY, LEFT COLECTOMY, RIGHT COLOSTOMY 2013 ABORTED L4-L5 DISCECTOMY COMPLICATED BY INTRAOPERATIVE ILIAC VEIN AND AORTIC PERFORATION 07/2014 TRACHEOSTOMY 07/2014 CHOLECYSTECTOMY, SECONDARY TO BILE LEAK 07/2014 BILATERAL LOWER EXTREMITY FASCIOTOMIES R/T COMPARTMENT SYNDROME 07/29 DEFIBRILATOR PLACEMENT (R) SIDE 01/08/18 NEW PACEMAKER WIRE 06/05/18 CIRCUMCISION 10/01/2018 FAMILY HISTORY FATHER: , LUNG CANCER, DIAGNOSED WITH CANCER MOTHER: , DIABETES, TYPE II, OTHER, DIABETES SIBLINGS: DIABETES, TYPE II, DIABETES, HEART DISEASE 6 BROTHER(S) , 5 SISTER(S) . MOM WITH COPD, CHF. BROTHER WITH HEART DISEASE, DIABETES. SOCIAL HISTORY GENERAL: TOBACCO USE ARE YOU A:CURRENT SMOKER ARE YOU INTERESTED IN QUITTING?NOT READY TO QUIT COUNSELED THE PATIENT ON SMOKING EFFECTS, EDUCATION [id number]/15/2019 HOW MANY CIGARETTES A DAY DO YOU SMOKE?6-10 HOW SOON AFTER YOU WAKE UP DO YOU SMOKE YOUR FIRST CIGARETTE?AFTER 60 MIN HOW OFTEN DO YOU SMOKE CIGARETTES?EVERY DAY PATIENT COUNSELED ON THE DANGERS OF TOBACCO USE AND URGED TO QUIT:11/27/2018 SMOKING CESSATION INFORMATION GIVEN09/29/2018 LATEX QUESTIONNAIRE LATEX ALLERGY : HAVE YOU EVER DEVELOPED ANY TYPE OF REACTION AFTER HANDLING LATEX PRODUCTS SUCH RUBBER GLOVES, CONDOMS, DIAPHRAGMS, BALLOONS, SOCKS, OR UNDERWEAR?NO LATEX ALLERGY : HAVE YOU EVER DEVELOPED ANY TYPE OF REACTION DURING OR AFTER DENTAL APPOINTMENT, VAGINAL/RECTAL EXAMINATION, SURGICAL PROCEDURE, OR ANY OTHER EXPOSURE?NO LATEX RISK : HAVE YOU EVER HAD ANY DIFFICULTY BREATHING OR HIVES AFTER EATING OR HANDLING ANY FRUITS, OR VEGETABLES; SUCH KIWI, BANANAS, STONE FRUITS, OR CHESTNUTSNO LATEX RISK : DO YOU HAVE A PREVIOUS PERSONAL HISTORY OF MORE THAN NINE SURGERIES, SPINA BIFIDA, OR REPEATED CATHERTIZATIONS? YES - PLEASE INDICATE : > 9 SURGERIES LATEX RISK : ARE YOU FREQUENTLY EXPOSED TO LATEX PRODUCTS IN YOUR OCCUPATION?NO DATE ASKED : 11/27/2018 BMI CARE GOAL FOLLOW-UP ABOVE NORMAL BMI FOLLOW-UPGIVING ENCOURAGEMENT TO EXERCISE ALCOHOL SCREENING POINTS: 0, INTERPRETATION: NEGATIVE. RECREATIONAL DRUG USE DENIES. 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 DIET: REGULAR. EXERCISE: WALKING. MARITAL STATUS: -MATEO. PAIN CLINIC PFS, CLERGY, PUBLIC HEALTH REFERRALS HAS THE PATIENT BEEN EDUCATED REGARDING HIS/HER PLAN OF CARE?YES HAS THE PATIENT BEEN EDUCATED REGARDING PAIN, THE RISK FOR PAIN, THE IMPORTANCE OF EFFECTIVE PAIN MANAGEMENT, AND THE PAIN ASSESSMENT PROCESS?YES ADVANCE DIRECTIVE ADVANCE DIRECTIVE DISCUSSED WITH PATIENT:YES POA - MATEO NÚÑEZ (); DECLINED HCP INFORMATION. REVIEWED WITH PATIENT 09/23/18 1432 JSREVIEWED WITH PATIENT 11/27/18 1034 JS. HOSPITALIZATION/MAJOR DIAGNOSTIC PROCEDURE COMPLICATIONS FOLLOWING ATTEMPTED LS SPINE SURGERY 07/18/14-05/17/15 SBO, UTI, INFLUENZA-RESOLVED C NGT 09/2015 BOWEL OBSTRUCTION DECEMBER/2016 ABORTED L4-5 DISKECTOMY, COMPLIACTED BY INTRAOPERATIVE ILIACVEIN AND AORTIC PERFORATION 07/29 BILAT LOWER EXT FASCIOTOMIES (COMPARTMENT SYNDROME) 07/29 EXP LAPAROTOMY, LEFT COLECTOMY, RIGHT COLOSTOMY 07/29 OPEN CHOLECYTECTOMY, SECONADRY BILE LEAK 07/29 TRACHEOSTOMY 07/29 REMOVAL INFECTED AORTOBIFEMORAL GRAFT, INSERTION OF SECOND ABF GRAFT 08/28 TEMPORARY PACEMAKER 08/28 ERCP, SPHICTEROTOMY, BILARY STENT PLACEMENT 09/29 FIRST OF SEVERAL SACRAL DECUB DEBRIDEMENTS 11/27 EGD--BILIARY STENT REMOVED 11/27 TRACH REMOVAL/CLOSURE 03/29 SMC-ELEVATED INR 7.9 C BLEEDING AT OSTOMY SITE 04/19-05/01 HOSPITALIZED FOR DEFIBRILATOR PLACEMENT 01/08/18-01/20/18 NEW PACEMAKER WIRE 06/04/18 REVIEW OF SYSTEMS REVIEWED BY: PROVIDER: LUX BETTENCOURT MD . CONSTITUTIONAL: ANY CHANGE IN YOUR MEDICAL CONDITION? NO . CHILLS NO . FEVER NO . INFECTION: DO YOU HAVE NEW INFECTIONS? NO . DO YOU HAVE HISTORY OF MRSA? NO . MUSCULOSKELETAL: ANY NEW PATTERNS OF PAIN OR NUMBNESS? NO . GASTROENTEROLOGY: ANY NEW CHANGE IN BOWEL CONTROL? NO . GENITOURINARY: ANY NEW CHANGE IN BLADDER CONTROL? NO . IS THERE A CHANCE YOU COULD BE ? NO . HEMATOLOGY/LYMPH: DO YOU TAKE ANY BLOOD THINNERS? (FOR EXAMPLE- COUMADIN, PLAVIX, AGGRENOX, PLATEL, PRADAXA, OR XARELTO) NO . WHEN WAS YOUR LAST DOSE? DATE: TIME: . NEUROLOGY: HAVE YOU FALLEN IN THE PAST 12 MONTHS? NO . ANY NEW EXTREMITY NUMBNESS OR WEAKNESS? NO . CARDIOLOGY: DO YOU HAVE A PACEMAKER OR DEFIBRILLATOR? YES, DEFIBRILLATOR . RESPIRATORY: HAVE YOU BEEN SICK IN THE PAST WEEK? NO . FEVER NO . FLU LIKE SYMPTOMS? NO . COUGH NO . INTEGUMENTARY: DO YOU HAVE ANY RASHES OR OPEN SORES? NO . ALLERGIC/IMMUNO: ARE YOU ALLERGIC TO IV DYE? NO . ANY NEW ALLERGIES? NO . PSYCHIATRIC: DO YOU HAVE THOUGHTS OF HURTING YOURSELF OR SOMEONE ELSE? NO . ARE YOU ABUSED, NEGLECTED, OR IN AN UNSAFE ENVIRONMENT? NO . ENDOCRINOLOGY: ARE YOU DIABETIC? NO . OTHER: DO YOU NEED ANY PRESCRIPTIONS? YES . IF YES, PLEASE LIST: ____OXYCODONE . ANY NEW PROBLEMS WITH YOUR MEDICATIONS? NO . WHEN DID YOU LAST EAT? ____ . WHEN DID YOU LAST DRINK? ____ . WHAT DID YOU LAST DRINK? ____ . NAME OF PERSON DRIVING YOU HOME? ____ . DO YOU HAVE ANY OTHER QUESTIONS OR CONCERNS YES, WOULD LIKE AT LEAST 30 OXYCODONE PILLS TO LAST HIM THE 30 DAYS, SAY THAT HE NEEDS TO TAKE THEM EVERY DAY BECAUSE THE PAIN BECOMES SO INTENSE AND THAT HE CAN'T SLEEP ON THE DAYS HE ISN'T ABLE TO TAKE THEM . VITAL SIGNS WT 203 LBS, HT 69 IN, BMI 29.97 INDEX, BP 119/64 MM HG, HR 60 /MIN, RR 18 /MIN, TEMP 96.4 F, OXYGEN SAT % 94%, SAFE IN ENV? (Y/N) YES, NA INITIALS SC 10:33, REVIEWED BY: OSMAN. EXAMINATION GENERAL EXAMINATION: PATIENT IS ALERT O X 3 AND COOPERATIVE. PATIENT IS USING A WHEELCHAIR. BOTH LEGS ARE WEAK AT EXTENSION AND FLEXION. PATIENT HAS A BRACE ON HIS RIGHT FOOT DUE TO A HISTORY OF FOOT DROP. MRI OF THE LUMBAR SPINE DONE ON 01/04/2016 SHOWS POST LAMINECTOMY CHANGES. ASSESSMENTS LUMBAR POST-LAMINECTOMY SYNDROME - M96.1 (PRIMARY) TREATMENT LUMBAR POST-LAMINECTOMY SYNDROME CLINICAL NOTES: WE DISCUSSED SEVERAL ISSUES WITH MR. NÚÑEZ'S PAIN MANAGEMENT CASE. THE PATIENT BROUGHT HIS MEDICATION WITH HIM TO TODAY'S VISIT IN THE ORIGINAL BOTTLE. THE PATIENT WILL CONTINUE USING 1 TABLET OF OXYCODONE NEEDED PER DAY AND I WILL INCREASE THE AMOUNT TO 30 TABLETS PER MONTH. ISTOP _#[id number] WAS REVIEWED. THE PATIENT WILL RESIGN THE NARCOTIC AGREEMENT AND PERFORM A URINE TOXICOLOGY TODAY. THE PATIENT WILL CONSIDER A LUMBAR EPIDURAL STEROID INJECTION IN THE FUTURE. THE PATIENT WILL FOLLOW UP IN 3 MONTHS. INSTRUCTIONS WERE GIVEN, QUESTIONS WERE ANSWERED, PATIENT REPORTS UNDERSTANDING AND AGREES WITH THE PLAN. I, TOR PUGA, DOCUMENTED THE ABOVE INFORMATION ACTING A SCRIBE FOR DR. BETTENCOURT. I HAVE REVIEWED THE ABOVE DOCUMENT, WRITTEN BY TOR VILLANUEVA AND I VERIFY THAT IT IS ACCURATE. . OTHERS REFILL OXYCODONE HCL TABLET, 10 MG, 1 TABLET NEEDED, ORALLY, DAILY PRN SEVERE PAIN MDD=1, 30 DAY(S), 30, REFILLS 0 PROCEDURES PN WORKMANS' COMP OPINION IN YOUR OPINION, WAS THE INCIDENT THAT THE PATIENT DESCRIBED THE COMPETENT MEDICAL CAUSE OF THIS INJURY/ILLNESS? YES ARE THE PATIENT'S COMPLAINTS CONSISTENT WITH HIS/HER HISTORY OF THE INJURY/ILLNESS? YES IS THE PATIENT'S HISTORY OF THE INJURY/ILLNESS CONSISTENT WITH YOUR OBJECTIVE FINDING? YES WHAT IS THE PERCENTAGE OF TEMPORARY IMPAIRMENT? TOTAL = 100% IS THE PATIENT WORKING? NO DOCTOR ON SITE: LUX CARPIO MD PROCEDURE CODES FA211 ESTABILISHED PATIENT [facility] FACILITY CHARGE G8427 CURRENT MEDS W/DOSAGES DOCUMENTED G8730 PAIN ASSESS POS TOOL F/U PLAN DOC DISPOSITION & COMMUNICATION FOLLOW UP 3 MONTHS (REASON: W/C LOW BACK) ELECTRONICALLY SIGNED BY LUX BETTENCOURT MD, ON 12/10/2018 AT 09:15 AM EDT DISCLAIMER : THIS IS A VISIT SUMMARY EXTRACTED FROM THE [facility] CHART. IT IS NOT A COPY OF THE [facility] [facility] PROGRESS NOTE. MARIAELENA
== END ==
LOC: M PAIN 10:30
PROVIDERS: ATTEND Anesthesiology
DX: M96.1 Postlaminectomy syndrome, not elsewhere classified (principal); G82.20 Paraplegia, unspecified; I25.5 Ischemic cardiomyopathy; E11.9 Type 2 diabetes mellitus without complications; J44.9 Chronic obstructive pulmonary disease, unspecified; G47.33 Obstructive sleep apnea (adult) (pediatric); K21.9 Gastro-esophageal reflux disease without esophagitis; E55.9 Vitamin D deficiency, unspecified; F17.210 Nicotine dependence, cigarettes, uncomplicated; Z79.82 Long term (current) use of aspirin; Z79.891 Long term (current) use of opiate analgesic; Z79.899 Other long term (current) drug therapy; Z88.8 Allergy status to other drugs, medicaments and biological substances; Z95.810 Presence of automatic (implantable) cardiac defibrillator; Z86.79 Personal history of other diseases of the circulatory system

== ENCOUNTER 2018-12-10 09:25 | Outpatient (RCR) | payer OTHER | END 2018-12-13 | LOC: M PT 09:25 | PROVIDERS: ATTEND Family Medicine | DX: Z51.89 Encounter for other specified aftercare (principal); R29.898 Other symptoms and signs involving the musculoskeletal system ==

== ENCOUNTER → 2018-12-15 | Outpatient (CLI) | payer OTHER ==
[~2018-12-15] MED LIST changes: -/CELE20CA OR; -/PANT40TA; -/PANT40TA OR; +CELE1CAP4 OR; +PROT1TAB2; +PROT1TAB2 OR
[2018-12-15 11:35] LABS: BASO # 0.1 10^3/uL (0.0-0.2); BASO % 0.7 % (0.0-1.0); EOS # 0.2 10^3/uL (0.0-0.50); EOS % 2.4 % (0.0-3.0); HEMATOCRIT 48.5 % (42.0-52.0); HEMOGLOBIN 15.4 g/dl (13.5-17.5); LYMPH # 1.3 10^3/uL (1.5-4.5); LYMPH % 14.4 % (24.0-44.0); MEAN CORPUSCULAR HEMOGLOBIN 30.6 pg (27.0-33.0); MEAN CORPUSCULAR HGB CONC 31.8 g/dl (32.0-36.5); MEAN CORPUSCULAR VOLUME 96.4 fl (80.0-96.0); MONO # 0.7 10^3/uL (0.0-0.8); MONO % 7.5 % (0.0-5.0); NEUTROPHILS # 6.8 10^3/uL (1.8-7.7); NEUTROPHILS % 74.6 % (36.0-66.0); PLATELET COUNT, AUTOMATED 226 10^3/uL (150-450); RED BLOOD COUNT 5.03 10^6/uL (4.30-6.10); WHITE BLOOD COUNT 9.1 10^3/uL (4.0-10.0)
[2018-12-15 12:20] LABS: ALBUMIN 3.4 GM/DL (3.2-5.2); BILIRUBIN,TOTAL 0.4 MG/DL (0.2-1.0); CALCIUM LEVEL 9.2 MG/DL (8.8-10.2); CREATININE FOR GFR 1.54 MG/DL (0.70-1.30); MAGNESIUM LEVEL 2.1 MG/DL (1.8-2.4); POTASSIUM SERUM 4.9 MEQ/L (3.5-5.1); PTH INTACT 34.7 PG/ML (18.5-88.0); TOTAL 25(OH) VITAMIN D 24.3 NG/ML (30.0-100.0); TOTAL PROTEIN 7.1 GM/DL (6.4-8.2)
[2018-12-15 13:08] LABS: HEMOGLOBIN A1c 8.1 %
== END ==
LOC: M LAB 11:04
PROVIDERS: ATTEND Family Medicine
DX: I25.5 Ischemic cardiomyopathy (principal)

== ENCOUNTER 2019-01-07 10:51 | Outpatient (RCR) | payer OTHER ==
[~2019-01-07 10:51] MED LIST changes: -ASPI1TAB PO; +ASPI81TA26 PO; +CRES10TA PO; -CRES10TA32 PO
== END 2019-01-12 ==
LOC: M PT 10:51
PROVIDERS: ATTEND Family Medicine
DX: R29.898 Other symptoms and signs involving the musculoskeletal system (principal)

== ENCOUNTER 2019-02-02 11:15 | Outpatient (RCR) | payer OTHER | END 2019-02-12 | LOC: M PT 11:15 | PROVIDERS: ATTEND Family Medicine | DX: R29.898 Other symptoms and signs involving the musculoskeletal system (principal) ==

== ENCOUNTER 2019-02-18 14:34 | Inpatient (IN) | payer OTHER ==
[~2019-02-18] VITALS: Ht 175.3 cm; Wt 90.9 kg
[2019-02-18] MEDS ORDERED: LOSA25TA14 PO (14:54)
[2019-02-18] MEDS ORDERED: NS 500 ML IV ONE (15:00)
[2019-02-18 15:23] LABS: BASO # 0.1 10^3/uL (0.0-0.2); BASO % 0.6 % (0.0-1.0); EOS # 0.3 10^3/uL (0.0-0.50); EOS % 2.7 % (0.0-3.0); HEMATOCRIT 42.8 % (42.0-52.0); HEMOGLOBIN 13.7 g/dl (13.5-17.5); LYMPH # 1.6 10^3/uL (1.5-4.5); MEAN CORPUSCULAR HEMOGLOBIN 31.1 pg (27.0-33.0); MEAN CORPUSCULAR VOLUME 97.3 fl (80.0-96.0); MONO % 9.9 % (0.0-5.0); NEUTROPHILS % 70.5 % (36.0-66.0); PLATELET COUNT, AUTOMATED 202 10^3/uL (150-450); WHITE BLOOD COUNT 9.9 10^3/uL (4.0-10.0)
[2019-02-18 15:32] LABS: INR 1.03; PROTHROMBIN TIME 13.6 SECONDS (12.1-14.4)
[2019-02-18 15:33] LABS: PARTIAL THROMBOPLASTIN TIME 28.2 SECONDS (25.4-37.6)
--- NOTE | 2019-02-18 15:53 | REP ---
CHEST, SINGLE VIEW: COMPARISON: 09/22/2018. There is mild interstitial prominence which is stable. No acute infiltrate or pulmonary edema is seen. The heart is not enlarged. Mediastinal silhouette is unchanged. Right single lead pacemaker is again noted. IMPRESSION: No acute infiltrate. Electronically Signed by Miguel Ángel Ruiz MD 02/22/2019 04:56 P
[2019-02-18] MEDS ORDERED: NON-325T5 PO (16:00)
[2019-02-18] MEDS ORDERED: ASPI81CH33 PO (16:00)
[2019-02-18] MEDS ORDERED: HYDR1CRE95 TOP (16:00)
[2019-02-18 16:41] LABS: BLOOD UREA NITROGEN 17 MG/DL (7-18); CALCIUM LEVEL 8.4 MG/DL (8.8-10.2); CARBON DIOXIDE LEVEL 29 MEQ/L (21-32); CHLORIDE LEVEL 107 MEQ/L (98-107); CPK CREATINE PHOSPHOKINASE 104 U/L (39-308); CREATININE FOR GFR 1.32 MG/DL (0.70-1.30); FREE T4 0.86 NG/DL (0.76-1.46); GLOMERULAR FILTRATION RATE 58.5 (>49); GLUCOSE, FASTING 158 MG/DL (70-100); MAGNESIUM LEVEL 2.4 MG/DL (1.8-2.4); MB/CK RELATIVE INDEX 2.21 (< OR =4); POTASSIUM SERUM 4.3 MEQ/L (3.5-5.1); SODIUM LEVEL 141 MEQ/L (136-145); TROPONIN I < 0.02 NG/ML (< 0.10)
[2019-02-18] MEDS ORDERED: ACETAMINOPHEN TAB 650MG DOSE (2X325MG) PO PRN (17:30)
[2019-02-18] MEDS ORDERED: MOM 30ML SUSPENSION UDC PO PRN (17:30)
--- NOTE | 2019-02-18 19:07 | HPEPDOC ---
General Date of Admission 02/18/19 Date of Service: Feb 18, 2019 Primary Care Physician: Saul Guadalupe MD Attending Physician: RADHA WILSON DO Chief Complaint The patient is a 63-year-old male admitted with a reason for visit of Syncope. 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 He was found to be significantly bradycardic and is being admitted to hospital. patient states no CP, no SOB, no LOC, did not hit his head. no N, no V, no loss of bowel or bladder function (patient has colostomy). ED spoke with cardiology who requested patient be placed under observation to hospitalist service Home Medications Scheduled Aspirin (Aspirin) 81 Mg Tab.chew, 81 MG PO DAILY, (Reported) Carvedilol (Coreg) 25 Mg Tab, 25 MG PO BID, (Reported) Ferrous Sulfate (Ferrous Sulfate) 325 Mg Tab, 325 MG PO DAILY, (Reported) Fluconazole (Fluconazole) 200 Mg Tab, 400 MG PO DAILY, (Reported) Gabapentin (Gabapentin) 800 Mg Tab, 800 MG PO QID, (Reported) Losartan Potassium (Losartan Potassium) 25 Mg Tablet, 25 MG PO DAILY, (Reported) Mineral Oil/Petrolatum,White (Hydrocerin Cream) 113 Gm Cream..g., 1 DOSE TOP DAILY, (Reported) APPLY TO LOWER LEGS Multivitamin/Iron/Folic Acid (Certavite-Antioxidant Tablet) 1 Tab Tab, 1 TAB PO DAILY, (Reported) Pantoprazole Sodium (Pantoprazole Sodium) 40 Mg Tab, 40 MG PO DAILY, (Reported) Paroxetine HCl (Paroxetine HCl) 40 Mg Tab, 40 MG PO DAILY, (Reported) Rosuvastatin Calcium (Crestor) 10 Mg Tab, 10 MG PO DAILY, (Reported) Scheduled PRN Acetaminophen (Acetaminophen) 325 Mg Tablet, 650 MG PO Q4H PRN for PAIN, (Reported) Oxycodone HCl (Oxycodone HCl) 10 Mg Tab, 10 MG PO DAILY PRN for PAIN, (Reported) Allergies Coded Allergies: pregabalin (Verified Allergy, Intermediate, SOB, 02/18/19) bupropion (Verified Allergy, Mild, rash, 02/18/19) fluoxetine (Verified Allergy, Mild, rash, 02/18/19) sertraline (Verified Allergy, Unknown, 02/18/19) mirtazapine (Verified Adverse Reaction, Mild, nightmares, 02/18/19) oxymorphone (Verified Adverse Reaction, Mild, incontinence, 02/18/19) Past Medical History Medical History 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 back surgery Yeast infection in blood (on chronic diflucan suppression therapy) 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% HTN GERD Hyperlipidemia Chronic back pain Sacral wound on admission Surgical History right chest wall defibrilator implant right inner ear surgery bilateral shoulder surgery left arm and leg surgery lumbar spine surgery x4 with complications colostomy stomach fistula to skin Family History Significant Family History: Cancer (lung - father ()), Other (mother old age) Social History * Smoker: current smoker (1/2 ppd) Alcohol: Denies Drugs: denies A-FIB/CHADSVASC A-FIB History Current/History of A-Fib/PAF?: No Review of Systems Other systems Comprehensive 10 system reviewed and negative except as per HPI Physical Examination General Exam: Positive: Alert, Cooperative, No Acute Distress Eye Exam: Positive: PERRLA, Conjunctiva & lids normal, EOMI ENT Exam: Positive: Atraumatic, Mucous membr. moist/pink, Other ENT (poor dentition) Neck Exam: Positive: Supple, +2 carotid pulse wo bruit; Negative: JVD Chest Exam: Positive: Clear to auscultation, Normal air movement; Negative: Rales, Rhonchi, Wheezing Heart Exam: Positive: Bradycardic, Regular Rhythm Telemetry: Positive: Sinus, Bradycardia Abdomen Exam: Positive: Normal bowel sounds, Soft, Other (non tender; scar tissue consistent with surgery, right colostomy; left lower quadrant wtih fistula) Extremity Exam: Negative: Edema Skin Exam: Positive: Nl turgor and temperature, Other skin issue (sacral decub present on admission) Neuro Exam: Positive: Normal Speech, Other (uses walker at home due to severe peripheral neuropathy) Psych Exam: Positive: Mental status NL, Mood NL, Oriented x 3 Vital Signs Vital Signs Date Time Temp Pulse Resp B/P (MAP) Pulse Ox O2 Delivery O2 Flow Rate FiO2 02/18/19 17:20 59 91 02/18/19 17:15 131/63 (85) 02/18/19 15:36 97.3 02/18/19 14:48 18 Room Air Laboratory Data Labs 24H Laboratory Tests 2 02/18/19 15:02: Immature Granulocyte % (Auto) 0.3, White Blood Count 9.9, Red Blood Count 4.40, Hemoglobin 13.7, Hematocrit 42.8, Mean Corpuscular Volume 97.3H, Mean Corpuscular Hemoglobin 31.1, Mean Corpuscular Hemoglobin Concent 32.0, Red Cell Distribution Width 13.5, Platelet Count 202, Neutrophils (%) (Auto) 70.5H, Lymphocytes (%) (Auto) 16.0L, Monocytes (%) (Auto) 9.9H, Eosinophils (%) (Auto) 2.7, Basophils (%) (Auto) 0.6, Neutrophils # (Auto) 7.0, Lymphocytes # (Auto) 1.6, Monocytes # (Auto) 1.0H, Eosinophils # (Auto) 0.3, Basophils # (Auto) 0.1, Nucleated Red Blood Cells % (auto) 0.0, Prothrombin Time 13.6, Prothromb Time International Ratio 1.03, Activated Partial Thromboplast Time 28.2, Anion Gap 5L, Glomerular Filtration Rate 58.5, Lactic Acid Level 1.1, Blood Urea Nitrogen 17, Creatinine 1.32H, Sodium Level 141, Potassium Level 4.3, Chloride Level 107, Carbon Dioxide Level 29, Calcium Level 8.4L, Total Creatine Kinase 104, Magnesium Level 2.4, Creatine Kinase MB 2.0, Creatine Kinase MB Relative Index 2.21, Troponin I < 0.02, Thyroid Stimulating Hormone (TSH) 1.280, Free Thyroxine 0.86 02/18/19 15:19: Bedside Glucose (Misc Panel) 156H CBC/BMP Laboratory Tests 02/18/19 15:02 Red Blood Count 4.40, Mean Corpuscular Volume 97.3 H, Mean Corpuscular Hemoglobin 31.1, Mean Corpuscular Hemoglobin Concent 32.0, Red Cell Distribution Width 13.5, Neutrophils (%) (Auto) 70.5 H, Lymphocytes (%) (Auto) 16.0 L, Monocytes (%) (Auto) 9.9 H, Eosinophils (%) (Auto) 2.7, Basophils (%) (Auto) 0.6, Neutrophils # (Auto) 7.0, Lymphocytes # (Auto) 1.6, Monocytes # (Auto) 1.0 H, Eosinophils # (Auto) 0.3, Basophils # (Auto) 0.1, Calcium Level 8.4 L, Total Creatine Kinase 104 RAD Interpretation STUDY: CXR Rad Actions: Report Reviewed, Discussed with the pt RAD Interpretation: Normal Assessment/Plan 1) near syncope - 2) bradycardia - hold coreg, decrease gabapentin from 800mg QID to 600mg QID (to avoid withdraw); Consult Cardiology - notified thru ED. 3) Cardiomyopathy - continue with losartan, defibrillator in place 4) sacral decub - unknown staging - present on admission - wound care 5) chronic pain syndrome - continue oxycodone pain regimen Observation, anticipate discharge in 24-36 hours. CODE status : FULL DVT prophlyaxis: lovenox Plan / VTE VTE Prophylaxis Ordered?: Yes RADHA WILSON DO Feb 18, 2019 17:29
[2019-02-18] MEDS: oxyCODONE 5MG TAB PO PRN (19:25)
[2019-02-18 20:00] VITALS: BP 145/56
[2019-02-18] MEDS: DOCUSATE SODIUM 100 MG CAP PO SCH (21:00)
[2019-02-18] MEDS: GABAPENTIN 300 MG CAP PO SCH (21:29)
[2019-02-19] MEDS: oxyCODONE 5MG TAB PO PRN ×4 (01:20→23:32)
[2019-02-19 02:00] VITALS: BP 142/57
[2019-02-19 06:00] VITALS: BP 137/67
[2019-02-19] MEDS: ENOXAPARIN 40 MG/0.4 ML SYRINGE (J1650) SC SCH (09:00)
[2019-02-19] MEDS: FERROUS SULFATE 325MG TAB PO SCH (09:24)
[2019-02-19] MEDS: GABAPENTIN 300 MG CAP PO SCH ×4 (09:25→23:30)
[2019-02-19] MEDS: LOSARTAN 25 MG TAB PO SCH (09:25)
[2019-02-19] MEDS: PARoxetine 20 MG TAB PO SCH (09:25)
[2019-02-19] MEDS: FLUCONAZOLE 100 MG TAB PO SCH (09:25)
[2019-02-19] MEDS: ATORVASTATIN 10 MG TAB PO SCH (09:25)
[2019-02-19] MEDS: ASPIRIN 81 MG ENTERIC TAB PO SCH (09:25)
[2019-02-19] MEDS: DOCUSATE SODIUM 100 MG CAP PO SCH ×2 (09:25→23:30)
[2019-02-19] MEDS: PANTOPRAZOLE 40MG TAB (PROTONIX) PO SCH (09:25)
[2019-02-19 10:00] VITALS: BP 145/77
[2019-02-19 10:52] LABS: HEMATOCRIT 45.1 % (42.0-52.0); HEMOGLOBIN 14.2 g/dl (13.5-17.5); MEAN CORPUSCULAR HGB CONC 31.5 g/dl (32.0-36.5); MEAN CORPUSCULAR VOLUME 101.6 fl (80.0-96.0); PLATELET COUNT, AUTOMATED 205 10^3/uL (150-450); RED BLOOD COUNT 4.44 10^6/uL (4.30-6.10); WHITE BLOOD COUNT 10.9 10^3/uL (4.0-10.0)
[2019-02-19 11:11] LABS: BLOOD UREA NITROGEN 18 MG/DL (7-18); CALCIUM LEVEL 8.5 MG/DL (8.8-10.2); CARBON DIOXIDE LEVEL 31 MEQ/L (21-32); CHLORIDE LEVEL 107 MEQ/L (98-107); CREATININE FOR GFR 1.28 MG/DL (0.70-1.30); GLOMERULAR FILTRATION RATE > 60.0 (>49); GLUCOSE, FASTING 182 MG/DL (70-100); POTASSIUM SERUM 4.2 MEQ/L (3.5-5.1); SODIUM LEVEL 142 MEQ/L (136-145)
--- NOTE | 2019-02-19 11:52 | IPNPDOC ---
Subjective Date Seen The patient was seen on 02/19/19. Subjective Chief Complaint/HPI Patient lying in bed comfortably as I entered the room. He reports to be feeling better and is requesting to go home Constitutional: Denies: Chills, Fever Skin: Reports: Other (Chronic sacral wound ) Pulmonary: Denies: Dyspnea, Cough Cardiovascular: Denies: Chest Pain, Palpitations, Orthopnea, Edema Gastrointestinal: Denies: Nausea, Vomiting, Abdominal Pain Psych: Reports: Mood Normal Objective Physical Examination General Exam: Positive: Alert, Cooperative, No Acute Distress Eye Exam: Positive: PERRLA, Conjunctiva & lids normal, EOMI ENT Exam: Positive: Atraumatic, Mucous membr. moist/pink, Other ENT (poor dentition) Neck Exam: Positive: Supple, +2 carotid pulse wo bruit; Negative: JVD Chest Exam: Positive: Clear to auscultation, Normal air movement; Negative: Rales, Rhonchi, Wheezing Heart Exam: Positive: Bradycardic, Regular Rhythm Telemetry: Positive: Sinus, Bradycardia Abdomen Exam: Positive: Normal bowel sounds, Soft, Other (non tender; scar tissue consistent with surgery, right colostomy; left lower quadrant wtih fistula) Extremity Exam: Negative: Edema Skin Exam: Positive: Nl turgor and temperature, Other skin issue (sacral decub present on admission) Neuro Exam: Positive: Normal Speech, Other (uses walker at home due to severe peripheral neuropathy) Psych Exam: Positive: Mental status NL, Mood NL, Oriented x 3 Assessment /Plan Problems (1) Symptomatic bradycardia Status: Acute Response to Treatment: Stable Problem Specific Plan: Consult Specialist Problem Text: 02/19/19: Beta vivek was held. Patient reports his symptoms to be improved. Cardiology was consulted from the ER. (2) Near syncope Status: Acute Response to Treatment: Stable Problem Specific Plan: Consult Specialist Problem Text: 02/19/19: Symptoms have improved. Cardiology was consulted (3) Hypertension Status: Chronic Response to Treatment: Stable Problem Text: 02/19/19: Continue with Losartan. Carvidolol on hold. We will need to monitor his pressures (4) Ischemic cardiomyopathy Status: Chronic Response to Treatment: Stable Problem Text: 02/19/19: Carvidolol was held to syncope. Continue Losartan (5) Sacral decubitus ulcer Status: Chronic Response to Treatment: Stable Problem Text: 02/19/19: Managed by Dr. Silva (6) Lumbar spondylolysis Status: Chronic Response to Treatment: Stable Problem Text: 02/19/19: Gabapentin was reduced to 600mg QID. Maintained on his home oxycodone (7) ARON (obstructive sleep apnea) Status: Chronic Response to Treatment: Stable Problem Text: 02/19/19: Per outpatient note, patient does not tolerate CPAP (8) History of [place] (myocardial infarction) Status: Chronic Response to Treatment: Stable Problem Text: 02/19/19: No chest pain. Continue with statin Plan/VTE VTE Prophylaxis Ordered?: Yes (Lovenox ) Plan Family Medicine Attending Note: I saw and examined Mr. Dolan, discussed with Panfilo Loo DNP. Agree with her note as documented. I confirmed that Dr. Benedict is coming to see the patient later today. The question for them is what does the patient need, if anything, in place of the carvedilol which had to be stopped. 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) VS, I&O, 24H, Fishbone Vital Signs/I&O Vital Signs Date Time Temp Pulse Resp B/P (MAP) Pulse Ox O2 Delivery O2 Flow Rate FiO2 02/19/19 10:00 98.2 62 18 145/77 (99) 99 02/18/19 19:50 Room Air I&O- Last 24 Hours up to 6 AM 02/19/19 05:59 Intake Total 500 ml Output Total 200 ml Balance 300 ml Laboratory Data 24H LABS Laboratory Tests 2 02/18/19 15:02: Immature Granulocyte % (Auto) 0.3, White Blood Count 9.9, Red Blood Count 4.40, Hemoglobin 13.7, Hematocrit 42.8, Mean Corpuscular Volume 97.3H, Mean Corpuscular Hemoglobin 31.1, Mean Corpuscular Hemoglobin Concent 32.0, Red Cell Distribution Width 13.5, Platelet Count 202, Neutrophils (%) (Auto) 70.5H, Lymphocytes (%) (Auto) 16.0L, Monocytes (%) (Auto) 9.9H, Eosinophils (%) (Auto) 2.7, Basophils (%) (Auto) 0.6, Neutrophils # (Auto) 7.0, Lymphocytes # (Auto) 1.6, Monocytes # (Auto) 1.0H, Eosinophils # (Auto) 0.3, Basophils # (Auto) 0.1, Nucleated Red Blood Cells % (auto) 0.0, Prothrombin Time 13.6, Prothromb Time International Ratio 1.03, Activated Partial Thromboplast Time 28.2, Anion Gap 5L, Glomerular Filtration Rate 58.5, Lactic Acid Level 1.1, Blood Urea Nitrogen 17, Creatinine 1.32H, Sodium Level 141, Potassium Level 4.3, Chloride Level 107, Carbon Dioxide Level 29, Calcium Level 8.4L, Total Creatine Kinase 104, Magnesium Level 2.4, Creatine Kinase MB 2.0, Creatine Kinase MB Relative Index 2.21, Troponin I < 0.02, Thyroid Stimulating Hormone (TSH) 1.280, Free Thyroxine 0.86 02/18/19 15:19: Bedside Glucose (Misc Panel) 156H 02/19/19 10:13: Nucleated Red Blood Cells % (auto) 0.0, Anion Gap 4L, Glomerular Filtration Rate > 60.0, Blood Urea Nitrogen 18, Creatinine 1.28, Sodium Level 142, Potassium Level 4.2, Chloride Level 107, Carbon Dioxide Level 31, Calcium Level 8.5L CBC/BMP Laboratory Tests 02/18/19 15:02 Red Blood Count 4.40, Mean Corpuscular Volume 97.3 H, Mean Corpuscular Hemoglobin 31.1, Mean Corpuscular Hemoglobin Concent 32.0, Red Cell Distribution Width 13.5, Neutrophils (%) (Auto) 70.5 H, Lymphocytes (%) (Auto) 16.0 L, Monocytes (%) (Auto) 9.9 H, Eosinophils (%) (Auto) 2.7, Basophils (%) (Auto) 0.6, Neutrophils # (Auto) 7.0, Lymphocytes # (Auto) 1.6, Monocytes # (Auto) 1.0 H, Eosinophils # (Auto) 0.3, Basophils # (Auto) 0.1, Calcium Level 8.4 L, Total Creatine Kinase 104 02/19/19 10:13 Red Blood Count 4.44, Mean Corpuscular Volume 101.6 H, Mean Corpuscular He moglobin 32.0, Mean Corpuscular Hemoglobin Concent 31.5 L, Red Cell Distribution Width 13.7, Calcium Level 8.5 L PANFILO LOO Feb 19, 2019 11:52 Amaury Akins MD Feb 19, 2019 20:46
[2019-02-19 14:00] VITALS: BP 143/63
[2019-02-19 18:00] VITALS: BP 139/68
[2019-02-19] MEDS: CARVedilol 3.125 MG TAB PO SCH (21:00)
--- NOTE | 2019-02-19 21:51 | CR ---
DATE OF CONSULTATION: 02/19/2019 REFERRING PHYSICIAN: Dr. Amaury Akins PRIMARY LEAN PROCESS DEPLOYMENT CONSULTANT: Dr. Saul Guadalupe REASON FOR THE CONSULT: Symptomatic bradycardia. Near syncope. HISTORY OF THE PRESENT ILLNESS: A 63-year-old male, well known by the office and usually sees Dr. Guadalupe with a history of cardiomyopathy for which an automatic implantable cardioverter defibrillator (AICD) was implanted about a year ago in [place], [place] by Dr. Castillo. On the day of hospitalization, he woke up and was feeling dizzy and around 1:30 p.m., he felt more dizzy and fell on the floor, but did not pass out completely. He woke up and he was acting himself, but he continued to feel dizzy, and his called emergency medical services (EMS) for him. The stated that he checked the blood pressure, and it was about 130-140 mmHg systolic and upon arrival by the ambulance, he overheard that the blood pressure was 90 mmHg. However, upon arrival in the emergency room (ER), blood pressure was reported normal at 142/66 with a pulse of 48, respirations 18, and his oxygen (O2) saturation was 94%. He was admitted for further management and monitoring, and his carvedilol was discontinued. He is now ready to go home and cardiology consult was called. When I saw Mr. Nitesh Dolan on the floor, he was lying supine in bed, in no acute distress at rest, and his was at bedside. He is an unfortunate gentleman with multiple surgeries in the past followed by multiple complications. He stated he feels good in the hospital, and he denies any dizziness or lightheadedness. He denies any chest pain. He denies any palpitations. He has been compliant with his medication and follow up with the office, and he recently checked his AICD site defibrillator, it is working fine. He denies any bleeding. He has no nausea, vomiting, diarrhea, melena or hematemesis. It seemed that when he fell, he had no loss of sphincter control. 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 He had a cardiac catheterization that revealed no coronary artery disease. There is no history of atrial fibrillation, significant valvular heart disease, transient ischemic attack (TIA)/cerebrovascular accident (CVA). PAST SURGICAL HISTORY: Positive for AICD/permanent pacemaker implantation first attempt on the left side, and it was unsuccessful and complicated by pneumothorax. The second attempt on the right side was successful and also complicated by pneumothorax. He also has had multiple abdominal surgeries and one was complicated by compartment syndrome, bleeding from the aorta. He has numbness in his right lower extremity. He did not want to give too many details about this surgery. That was also complicated by colostomy and multiple fistulas. MEDICATIONS AT HOME: Aspirin 81 mg by mouth daily, carvedilol 25 mg by mouth twice a day, ferrous sulfate 325 mg by mouth daily, fluconazole as directed, gabapentin 800 mg by mouth four times a day, losartan potassium 25 mg by mouth daily, multivitamin/folic acid/iron one tablet by mouth daily, pantoprazole 40 mg by mouth daily, paroxetine 40 mg by mouth daily, rosuvastatin 10 mg by mouth daily. FAMILY HISTORY: Positive for heart disease. SOCIAL HISTORY: The patient lives with his , and he does smoke. He denies any ethyl alcohol (EtOH) abuse. ALLERGIES: He has multiple allergies to BUPROPION, FLUOXETINE, SERTRALINE, MIRTAZAPINE, OXYMORPHONE, and LYRICA. ADVANCED DIRECTIVES: The patient is a FULL CODE. PHYSICAL EXAMINATION: The patient is alert and oriented, in no acute distress at rest and very pleasant. His most recent vital signs revealed a blood pressure of 139/68 with a pulse reported to be 50, respiration 18, and his maximum temperature is 98.2 degrees Fahrenheit, with an oxygen saturation of 94-99% on room air. Examination of the head: Atraumatic. Neck: Neck is supple and no jugular venous distention (JVD) appreciated. No carotid bruits. The lungs did not reveal any wheezing or crackles. The heart examination revealed regular heart sounds without gallops. The point of maximum impulse (PMI) is displaced inferiorly and laterally. There is no rub. Abdomen is soft and surgical scars noted. Extremities: Reveal trace lower leg edema, more in the right lower extremity than the left. Neurologic Examination: Grossly is negative for focal deficit. LABORATORY DATA: CBC done today revealed a WBC of 10.9, hemoglobin 14.2, hematocrit 45.1, and platelet 205,000. BMP revealed a sodium of 142, potassium 4.2, chloride 197, CO2 of 31, BUN 18, creatinine 1.28, GFR greater than 60, fasting glucose 182 and calcium 8.5. Serum troponin on admission was less than 0.02. PT is 13.6 with an INR of 1.03 and a PTT of 28.2. Chest x-ray on admission revealed no any acute disease process. Telemetry strips were reviewed. 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 He was found to be bradycardic with a heart rate reported to be about 40 beats per minute. His last AICD interrogation done in the office revealed lower rate of 40 beats per minute. Since in the hospital, he has been asymptomatic, he has been off the beta vivek. No arrhythmia has been detected on telemetry. In view of his cardiomyopathy, he will be started on a smaller dose of the carvedilol at 3.125 mg by mouth twice a day starting today, and he will be monitored. I will recommend to hold the discharge from today and tomorrow, will have [employer] check his AICD and change the settings as needed. If he remains stable and asymptomatic on the lower dose of the beta vivek, and after interrogation of his AICD, he may be discharged home. It was a pleasure to participate in the care of Mr. Nitesh Dolan for his underlying cardiac condition. We will continue to monitor him along with you while in the hospital and case will be discussed with Dr. Akins, his coverage.. Upon discharge, he will call the office for a followup appointment with Dr. Guadalupe.
[2019-02-19 22:00] VITALS: BP 141/70
[2019-02-20 02:00] VITALS: BP 151/76
[2019-02-20 06:00] VITALS: BP 146/73
[2019-02-20 06:47] LABS: BASO # 0.1 10^3/uL (0.0-0.2); BASO % 0.5 % (0.0-1.0); EOS # 0.3 10^3/uL (0.0-0.50); EOS % 2.8 % (0.0-3.0); HEMATOCRIT 43.1 % (42.0-52.0); HEMOGLOBIN 13.6 g/dl (13.5-17.5); LYMPH # 1.6 10^3/uL (1.5-4.5); LYMPH % 16.8 % (24.0-44.0); MEAN CORPUSCULAR HGB CONC 31.6 g/dl (32.0-36.5); MEAN CORPUSCULAR VOLUME 98.2 fl (80.0-96.0); MONO # 1.1 10^3/uL (0.0-0.8); MONO % 12.4 % (0.0-5.0); NEUTROPHILS # 6.2 10^3/uL (1.8-7.7); PLATELET COUNT, AUTOMATED 194 10^3/uL (150-450); RED BLOOD COUNT 4.39 10^6/uL (4.30-6.10); WHITE BLOOD COUNT 9.2 10^3/uL (4.0-10.0)
[2019-02-20 07:07] LABS: CALCIUM LEVEL 8.5 MG/DL (8.8-10.2); CREATININE FOR GFR 1.39 MG/DL (0.70-1.30); GLOMERULAR FILTRATION RATE 55.1 (>49)
--- NOTE | 2019-02-20 08:09 | ECGEPIP ---
[facility] - ED Test Date: 2019-02-18 Pat Name: MACKENZIE NÚÑEZ Department: Room: - Gender: Male Tube Operator: KK : [id number] Requested By: Kamran Palma Order Number: [id number] Reading MD: Francis Sunshine Measurements Intervals [place] Rate: 46 P: 52 WV: 181 QRS: 95 QRSD: 148 T: 98 QT: 504 QTc: 445 Interpretive Statements SINUS BRADYCARDIA RIGHT BUNDLE BRANCH BLOCK Nonspecific ST-T wave abnormalities Electronically Signed on 02-20-2019 8:09:37 EDT by Francis Sunshine
--- NOTE | 2019-02-20 08:19 | ECHO ---
DATE OF STUDY: 02/19/2019 AGE: 63. REFERRING PHYSICIAN: Bárbara Chaidez PATIENT LOCATION: Room 4228. REASON FOR THE ECHOCARDIOGRAM: Cardiac dysrhythmias. 2D MEASUREMENTS: IVS: 1.1 cm LV: 5.1 cm LVPW: 1.1 cm LA: 3.2 cm Aorta: 3.1 cm IVC: 2.1 cm DOPPLER MEASUREMENTS: Peak velocity across the aortic valve: 1.1 m/s Peak velocity across the LVOT: 0.71 m/s Mitral E: 0.72 Mitral A: 0.51 with a ratio of 1.4 Maximum tricuspid valve velocity: 2.1 m/s 2D COMMENTS: 1. Normal left ventricular size, wall thickness, and overall global left ventricular systolic function seems to be normal, estimated at 50% to 55%. 2. Normal left atrium. Normal right atrium and right ventricle. 3. The atrial septum appeared to be normal without evidence of defect or shunt. 4. Normal aortic root. 5. No pericardial effusion seen. 6. The mitral valve, aortic valve, tricuspid valve, and pulmonic valve appeared to be normal. The proximal pulmonary artery branches were not well visualized. 7. The inferior vena cava was mildly dilated, central venous pressure might be elevated. 8. Pacemaker wire artifact noted in the pacemaker/automatic implantable cardioverter-defibrillator (AICD) wire artifact noted in the right heart chambers. DOPPLER: No significant valvular abnormalities detected but trace mitral regurgitation and trace tricuspid regurgitation. The calculated pulmonary artery systolic pressure was normal. Assessment of the left ventricular diastolic function appeared to be normal. IMPRESSION 1. Normal global left ventricular systolic and diastolic function. 2. Trace mitral regurgitation. 3. Trace tricuspid regurgitation with a normal calculated pulmonary artery systolic pressure. 4. There may be findings consistent with elevated central venous pressure, the inferior vena cava/IVC was mildly enlarged. 5. Pacemaker wire artifact noted in the pacemaker/AICD wire artifacts noted in the right heart chambers.
[2019-02-20] MEDS: ATORVASTATIN 10 MG TAB PO SCH (09:00)
[2019-02-20] MEDS: CARVedilol 3.125 MG TAB PO SCH (09:00)
[2019-02-20] MEDS: ENOXAPARIN 40 MG/0.4 ML SYRINGE (J1650) SC SCH (09:00)
[2019-02-20] MEDS: PARoxetine 20 MG TAB PO SCH (09:23)
[2019-02-20] MEDS: FLUCONAZOLE 100 MG TAB PO SCH (09:23)
[2019-02-20] MEDS: ASPIRIN 81 MG ENTERIC TAB PO SCH (09:23)
[2019-02-20] MEDS: GABAPENTIN 300 MG CAP PO SCH ×4 (09:23→20:30)
[2019-02-20] MEDS: DOCUSATE SODIUM 100 MG CAP PO SCH ×2 (09:23→20:30)
[2019-02-20] MEDS: PANTOPRAZOLE 40MG TAB (PROTONIX) PO SCH (09:23)
[2019-02-20] MEDS: FERROUS SULFATE 325MG TAB PO SCH (09:23)
[2019-02-20] MEDS: oxyCODONE 5MG TAB PO PRN ×2 (09:24→20:32)
[2019-02-20] MEDS: LOSARTAN 25 MG TAB PO SCH (09:27)
[2019-02-20 10:00] VITALS: BP 145/77
[2019-02-20 14:00] VITALS: BP 129/64
[2019-02-20 18:00] VITALS: BP 147/87
--- NOTE | 2019-02-20 18:33 | IPNPDOC ---
Subjective Date Seen The patient was seen on 02/20/19. Subjective Chief Complaint/HPI symptomatic bradycardia Events since last encounter Patient states that he is "feeling great" and wants to go home. His r eminded him that he had been dizzy earlier today, which he initially disagreed with but ultimately admitted. He stated that the dizziness occurred this morning when rolling over, and felt "like when you stand up too fast." He denied being dizzy or lightheaded when he got up, but also admits that he has been ambulating with an aide for fear of getting dizzy and falling. After his carvedilol was restarted last night at a small dose, he was bradycardic this a.m., with a pulse of 45. This morning's dose was held, and I discussed with Duy. Constitutional: Denies: Chills, Fever Eyes: Denies: Pain Pulmonary: Denies: Dyspnea, Cough Cardiovascular: Denies: Chest Pain Gastrointestinal: Denies: Nausea, Vomiting, Diarrhea, Constipation Objective Physical Examination General Exam: Positive: Alert, Cooperative, No Acute Distress Eye Exam: Positive: PERRLA, Conjunctiva & lids normal, EOMI ENT Exam: Positive: Atraumatic, Mucous membr. moist/pink, Other ENT Neck Exam: Positive: Supple, +2 carotid pulse wo bruit Chest Exam: Positive: Clear to auscultation, Normal air movement Heart Exam: Positive: Bradycardic, Regular Rhythm Telemetry: Positive: Sinus, Bradycardia Abdomen Exam: Positive: Normal bowel sounds, Soft, Other Extremity Exam: Negative: Edema Skin Exam: Positive: Nl turgor and temperature, Other skin issue Neuro Exam: Positive: Normal Speech, Other (admits dizziness) Psych Exam: Positive: Mental status NL, Mood NL, Oriented x 3 Assessment /Plan Problems (1) Symptomatic bradycardia Status: Acute Response to Treatment: Stable Problem Specific Plan: Consult Specialist Problem Text: 02/20: PT consulted to ensure that he is safe at home. Discussed with cardiology, and he does not seem to be tolerating even the smallest dose of carvedilol. Cardiology advised that carvedilol was less likely to cause bradycardia than most beta-blockers, and that we should just stop the Coreg. 02/19/19: Beta vivek was held. Patient reports his symptoms to be improved. Cardiology was consulted from the ER. (2) Near syncope Status: Acute Response to Treatment: Stable Problem Specific Plan: Consult Specialist Problem Text: 02/19/19: Symptoms have improved. Cardiology was consulted (3) Hypertension Status: Chronic Response to Treatment: Stable Problem Text: 02/19/19: Continue with Losartan. Carvidolol on hold. We will need to monitor his pressures (4) Ischemic cardiomyopathy Status: Chronic Response to Treatment: Stable Problem Text: 02/20: OK to just stop carvedilol, per cardiology. 02/19/19: Carvidolol was held to syncope. Continue Losartan (5) Sacral decubitus ulcer Status: Chronic Response to Treatment: Stable Problem Text: 02/19/19: Managed by Dr. Silva (6) Lumbar spondylolysis Status: Chronic Response to Treatment: Stable Problem Text: 02/19/19: Gabapentin was reduced to 600mg QID. Maintained on his home oxycodone (7) ARON (obstructive sleep apnea) Status: Chronic Response to Treatment: Stable Problem Text: 02/19/19: Per outpatient note, patient does not tolerate CPAP (8) History of [place] (myocardial infarction) Status: Chronic Response to Treatment: Stable Problem Text: 02/19/19: No chest pain. Continue with statin Plan/VTE VTE Prophylaxis Ordered?: Yes (Lovenox ) VS, I&O, 24H, Fishbone Vital Signs/I&O Vital Signs Date Time Temp Pulse Resp B/P (MAP) Pulse Ox O2 Delivery O2 Flow Rate FiO2 02/20/19 18:00 97.0 49 17 147/87 (107) 91 02/18/19 19:50 Room Air I&O- Last 24 Hours up to 6 AM 02/20/19 06:00 Intake Total 1455 ml Output Total 1200 ml Balance 255 ml Laboratory Data 24H LABS Laboratory Tests 2 02/20/19 06:21: Immature Granulocyte % (Auto) 0.5, White Blood Count 9.2, Red Blood Count 4.39, Hemoglobin 13.6, Hematocrit 43.1, Mean Corpuscular Volume 98.2H, Mean Corpus cular Hemoglobin 31.0, Mean Corpuscular Hemoglobin Concent 31.6L, Red Cell Distribution Width 13.2, Platelet Count 194, Neutrophils (%) (Auto) 67.0H, Lymphocytes (%) (Auto) 16.8L, Monocytes (%) (Auto) 12.4H, Eosinophils (%) (Auto) 2.8, Basophils (%) (Auto) 0.5, Neutrophils # (Auto) 6.2, Lymphocytes # (Auto) 1.6, Monocytes # (Auto) 1.1H, Eosinophils # (Auto) 0.3, Basophils # (Auto) 0.1, Nucleated Red Blood Cells % (auto) 0.0, Anion Gap 4L, Glomerular Filtration Rate 55.1, Blood Urea Nitrogen 17, Creatinine 1.39H, Sodium Level 140, Potassium Level 4.0, Chloride Level 104, Carbon Dioxide Level 32, Calcium Level 8.5L CBC/BMP Laboratory Tests 02/20/19 06:21 Red Blood Count 4.39, Mean Corpuscular Volume 98.2 H, Mean Corpuscular Hemoglobin 31.0, Mean Corpuscular Hemoglobin Concent 31.6 L, Red Cell Distribution Width 13.2, Neutrophils (%) (Auto) 67.0 H, Lymphocytes (%) (Auto) 16.8 L, Monocytes (%) (Auto) 12.4 H, Eosinophils (%) (Auto) 2.8, Basophils (%) (Auto) 0.5, Neutrophils # (Auto) 6.2, Lymphocytes # (Auto) 1.6, Monocytes # (Auto) 1.1 H, Eosinophils # (Auto) 0.3, Basophils # (Auto) 0.1, Calcium Level 8.5 L ROMULO PURDY DO Feb 20, 2019 18:33
[2019-02-20 22:00] VITALS: BP 150/74
[2019-02-21 02:00] VITALS: BP 128/70
[2019-02-21 06:00] VITALS: BP 149/71
[2019-02-21 06:31] LABS: BASO # 0.1 10^3/uL (0.0-0.2); BASO % 0.6 % (0.0-1.0); EOS # 0.3 10^3/uL (0.0-0.50); EOS % 2.8 % (0.0-3.0); HEMATOCRIT 46.5 % (42.0-52.0); HEMOGLOBIN 14.8 g/dl (13.5-17.5); LYMPH # 1.2 10^3/uL (1.5-4.5); LYMPH % 12.8 % (24.0-44.0); MEAN CORPUSCULAR HEMOGLOBIN 31.4 pg (27.0-33.0); MEAN CORPUSCULAR HGB CONC 31.8 g/dl (32.0-36.5); MEAN CORPUSCULAR VOLUME 98.7 fl (80.0-96.0); MONO % 11.1 % (0.0-5.0); NEUTROPHILS # 6.6 10^3/uL (1.8-7.7); NEUTROPHILS % 71.9 % (36.0-66.0); PLATELET COUNT, AUTOMATED 207 10^3/uL (150-450); RED BLOOD COUNT 4.71 10^6/uL (4.30-6.10); WHITE BLOOD COUNT 9.1 10^3/uL (4.0-10.0)
[2019-02-21 06:47] LABS: CALCIUM LEVEL 8.6 MG/DL (8.8-10.2); CREATININE FOR GFR 1.3 MG/DL (0.70-1.30); GLOMERULAR FILTRATION RATE 59.5 (>49); POTASSIUM SERUM 4.2 MEQ/L (3.5-5.1)
[2019-02-21] MEDS: ATORVASTATIN 10 MG TAB PO SCH (09:00)
[2019-02-21] MEDS: ENOXAPARIN 40 MG/0.4 ML SYRINGE (J1650) SC SCH (09:00)
[2019-02-21 10:00] VITALS: BP 135/74
[2019-02-21 10:42] VITALS: BP 149/71
[2019-02-21] MEDS: LOSARTAN 25 MG TAB PO SCH (10:42)
[2019-02-21] MEDS: PARoxetine 20 MG TAB PO SCH (10:42)
[2019-02-21] MEDS: DOCUSATE SODIUM 100 MG CAP PO SCH (10:42)
[2019-02-21] MEDS: PANTOPRAZOLE 40MG TAB (PROTONIX) PO SCH (10:42)
[2019-02-21] MEDS: FLUCONAZOLE 100 MG TAB PO SCH (10:42)
[2019-02-21] MEDS: GABAPENTIN 300 MG CAP PO SCH ×2 (10:42→14:27)
[2019-02-21] MEDS: ASPIRIN 81 MG ENTERIC TAB PO SCH (10:43)
[2019-02-21] MEDS: FERROUS SULFATE 325MG TAB PO SCH (10:43)
[2019-02-21] MEDS ORDERED: GABA-843 PO (12:45)
== END 2019-02-21 15:03 | disposition home or self-care (01) | DRG 201 ==
LOC: EDBD 14:34 → M ED 14:34 → M ED INP 17:17 → M MSPAV 20:32 → OBSVTOIN 02-20 17:48
PROVIDERS: ADMIT Family Medicine; ATTEND Family Medicine
DX: R00.1 Bradycardia, unspecified (principal); L89.159 Pressure ulcer of sacral region, unspecified stage; G62.9 Polyneuropathy, unspecified; R55 Syncope and collapse; I25.5 Ischemic cardiomyopathy; I10 Essential (primary) hypertension; K21.9 Gastro-esophageal reflux disease without esophagitis; G47.33 Obstructive sleep apnea (adult) (pediatric); M47.816 Spondylosis without myelopathy or radiculopathy, lumbar region; E78.5 Hyperlipidemia, unspecified; F17.200 Nicotine dependence, unspecified, uncomplicated; Z79.82 Long term (current) use of aspirin; Z93.3 Colostomy status; Z88.8 Allergy status to other drugs, medicaments and biological substances; Z88.5 Allergy status to narcotic agent; Z45.02 Encounter for adjustment and management of automatic implantable cardiac defibrillator; Z79.899 Other long term (current) drug therapy

== ENCOUNTER → 2019-02-23 | Outpatient (REF) | payer OTHER ==
[~2019-02-23] MED LIST changes: +ASPI81CH33 PO; +GABA-843 PO; +HYDR1CRE95 TOP; +LOSA25TA14 PO; +NON-325T5 PO
[2019-02-23 18:39] LABS: APPEARANCE, URINE TURBID (CLEAR); BACTERIA, URINE AUTO 3+ (NEGATIVE); BILIRUBIN, URINE AUTO NEGATIVE (NEGATIVE); BLOOD, URINE BLOOD 2+ (NEGATIVE); COLOR, URINE AMBER (YELLOW); GLUCOSE, URINE (UA) AUTO NEGATIVE (NEGATIVE); KETONE, URINE AUTO NEGATIVE (NEGATIVE); LEUKOCYTE ESTERASE, URINE AUTO 3+ (NEGATIVE); NITRITE, URINE AUTO NEGATIVE (NEGATIVE); PROTEIN, URINE AUTO 2+ mg/dL (NEGATIVE); RBC, URINE AUTO 120 /HPF (0-3); SPECIFIC GRAVITY URINE AUTO 1.028 (1.002-1.035); SQUAMOUS EPITHELIAL CELL UR AU 0 /HPF (0-6); WBC, URINE AUTO TNTC /HPF (0-3)
== END ==
LOC: M LAB REF 17:15
PROVIDERS: ATTEND Family Medicine
DX: R35.0 Frequency of micturition (principal)

== ENCOUNTER → 2019-02-26 | Outpatient (CLI) | payer OTHER ==
--- NOTE | 2019-03-06 23:56 | ECWPNPC ---
PATIENT NAME: MACKENZIE NÚÑEZ : 1955 GENDER: MALE VISIT DATE: 02/26/2019 DISCHARGE DATE: 02/26/19 1103 VISIT LOCKED DATE TIME: PHYSICIAN: LUX BETTENCOURT MD PHYSICIAN PAGER NO: [phone] RESOURCE: LUX BETTENCOURT MD REASON FOR APPOINTMENT 1. W/C LOW BACK HISTORY OF PRESENT ILLNESS HISTORY OF PRESENT ILLNESS: PAIN THE PATIENT DESCRIBES THE PAIN... 63 YEAR OLD MALE PATIENT WITH A HISTORY OF CHRONIC LOW BACK PAIN. THE PATIENT DESCRIBES THE PAIN SORE, TENDER, SHARP, SHOOTING, AND CONTINUOUS WITH A PAIN SCORE OF 7-10/10 DEPENDING ON PHYSICAL ACTIVITY. 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 THE PATIENT SAYS HIS PAIN STARTS IN HIS LOW BACK AND RADIATES DOWN INTO HIS LEGS. THE PATIENT HAS HAD FOUR BACK SURGERIES AND REPORTS HAVING COMPLICATIONS DURING THE MOST RECENT SURGERY BECAUSE THEY WENT IN THROUGH HIS FRONT. THE PATIENT SAYS HE HAS BEEN USING A WHEELCHAIR SINCE THE LAST SURGERY. THE PATIENT IS CURRENTLY USING OXYCODONE NEEDED TO AID IN PAIN RELIEF. PATIENT DENIES UNEXPLAINABLE WEIGHT LOSS, FEVER, CHILLS, NEW CHANGES ON HIS URINARY OR BOWEL CONTROL. FALL RISK SCREENING: SCREENING :NO FALLS REPORTED IN THE LAST YEAR CURRENT MEDICATIONS TAKING PANTOPRAZOLE SODIUM 40 MG TABLET DELAYED RELEASE 1 TABLET ORALLY ONCE A DAY TAKING FERROUS SULFATE 325 (65 FE) MG TABLET 1 TABLET ORALLY ONCE A DAY TAKING ASPIRIN 81 MG TABLET CHEWABLE 1 TABLET ORALLY ONCE A DAY TAKING GABAPENTIN 800 MG TABLET 1 TABLET ORALLY FOUR TIMES DAILY TAKING MIRALAX - PACKET 1 PACKET MIXED WITH 8 OUNCES OF FLUID ORALLY ONCE A DAY TAKING ACETOMINOPHEN-325 MG 325 MG TABLET 1 OR 2 TABS ORALLY EVERY FOUR HOURS PRN TAKING MAY HAVE - - LARGE NON-SKID SOCKS FOR DX=G82.21 (PARAPLEGIA) DAILY TAKING PREVAIL WET WIPES - MISCELLANEOUS DIRECTED FOR DX=G82.21 (PARAPLEGIA) DAILY TAKING LANCETS - MISCELLANEOUS DIRECTED DX: E11.9 TWICE A DAY TAKING GAIT/TRANSFER BELT - MISCELLANEOUS DIRECTED TAKING BLOOD GLUCOSE TEST - STRIP DIRECTED INTRADERMALLY BID DX: E11.9 TAKING MAY USE 1 - BRACE FOR LEFT LOWER EXTREMITY DIRECTED DX:R27.0 DAILY CONTRACTURE OF LOWER JOINT, NOTES: FAX TO [phone] TAKING MULTIVITAMIN & MINERAL TABLET 1 TAB(S) ORALLY DAILY TAKING FLUCONAZOLE 200 MG TABLET 2 TABLETS ORALLY ONCE A DAY TAKING PAROXETINE HCL 40 MG TABLET 1 TABLET IN THE MORNING ORALLY ONCE A DAY TAKING HYDROCERIN - CREAM DIRECTED EXTERNALLY BID TO LOWER LEGS FROM KNEES DOWN TAKING OXYCODONE HCL 10 MG TABLET 1 TABLET NEEDED ORALLY DAILY PRN SEVERE PAIN MDD=1 TAKING CERTAVITE/ANTIOXIDANTS - TABLET 1 TABLET ORALLY ONCE A DAY TAKING LOSARTAN POTASSIUM 25 MG TABLET 1 TABLET ORALLY EVERY MORNING TAKING ROSUVASTATIN CALCIUM 10 MG TABLET 1 TABLET ORALLY ONCE A DAY TAKING GABAPENTIN 800 MG TABLET TAKE ONE TABLET BY MOUTH FOUR TIMES A DAY NOT-TAKING PANTOPRAZOLE SODIUM 40 MG TABLET DELAYED RELEASE 1 TABLET ORALLY ONCE A DAY, NOTES: DUPLICATE NOT-TAKING FERROUS SULFATE 325 (65 FE) MG TABLET 1 TABLET ORALLY ONCE A DAY, NOTES: DUPLICATE NOT-TAKING ASPIRIN 81 81 MG TABLET CHEWABLE 1 TABLET ORALLY ONCE A DAY, NOTES: DUPLICATE NOT-TAKING SENNA S 8.6-50 MG TABLET 1 TABLET IN THE EVENING NEEDED ORALLY BID NOT-TAKING COLACE 100 MG CAPSULE 1 CAPSULE NEEDED ORALLY BID NOT-TAKING DULCOLAX 10 MG SUPPOSITORY 1 SUPPOSITORY NEEDED RECTAL ONCE A DAY MEDICATION LIST REVIEWED AND RECONCILED WITH THE PATIENT PAST MEDICAL HISTORY CAD, S/P AWMI POST-OP LAMINECTOMY-05/2017 VERY SMALL APICAL THROMBUS, LVEF 40%-AKINESIS OF APEX, MID ANT, MID ANTEROSEPTAL, LV DIASTOLIC DYSFX BY 05/2017 TTE-ANTECOL/07/2017 RST S ISCHEMIA BUT FOCAL/GLOBAL ABNORMALITY, LVEF 28%, HIGH RISK-BILLKA/12/2017 CATH-NO SIGNIFICANT CAD-GABY/SP ICD 01/12/2018-GABY HYPERLIPIDEMIA, 2B PAD T2DM NID COPD/EMPHYSEMA - FEV1 3.7 IN 2007, LIKELY FROM LONG-TERM HEAVY SMOKING ARON--INTOLERANT OF CPAP ED GERD CHRONIC 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 S/P EMERGENT ABDOMINAL AORTO BI-ILIAC ARTERY BYPASS GRAFT--REQUIRED 17 LITERS SALINE, 25 UNITS PRBC, 336 UNITS PLATELETS, 1 LITER FFP, 6 LITER CELL-SAVER ISCHEMIA LOWER EXTREMITIES WITH COMPARTMENT SYNDROME, REQUIRING BILAT 4 COMPATMENT FASCIOTOMIES SEPTIC SHOCK 2 PERFORATED VISCUS S/P EMERGENT LEFT COLECTOMY (C R COLOSTOMY), OPEN CHOLECYSTECTOMY, LIVER PACKING, ABTHERA REPLACMENT CHOLECYSTITIS, BILE LEAK POST CHOLECYSTECTYOMY LEFT COLECTOMY AND RT PARTIAL COLECTOMY WITH COLOSTOMY BRADYARHYTHMIA WITH CARDIAC ARREST/IWMI INFECTED AORTO BI-ILIAC BYPASS GRAFT C 2 CHRONIC DISSEMINATATED CANDIDIASIS AND S. EPIDERMIDIS BACTEREMIA ENTEROCTANEOUS FISTULAE H/O ACRODERMATITIS ENTEROPTHICA (ZINC-DEFICIENCY DERMATITIS) [facility] TRACHEOSTOMY, SUBSEQUENT CLOSURE OF TRACH H/O STAGE 4 SACRAL DECUBITUS PSEUDOMONUS OSTEOMYELITIS HIT--HEPARIN INDUCED THROMBOCYTOPENIA H/O RECURRENT GOUT, L PODAGRA LUMBAR DJD- L3/4 MOD CCS, L4/5 MILD C GRADE 1 LITHESIS AND L L4 COMPRESSION IN NF, L5/S1 DIFFUSE BULGE C MINIMAL TS COMPRESSION BY 04/2017 CT LS SPINE RECURRENT UTI ALLERGIES REMERON: NIGHTMARES - SIDE EFFECTS WELLBUTRIN: AGITATION - SIDE EFFECTS ZOLOFT: DIARRHEA - SIDE EFFECTS PROZAC: DEPRESSION - SIDE EFFECTS SURGICAL HISTORY APPENDECTOMY RIH LEFT ELBOW ULNAR NERVE TRANSPOSITION LUMBAR SPINAL FUSION 04/24 COLONOSCOPY--NL 11/17 REMOVAL SCREWS, RODS LUMBAR SPINE, BONE GRAFTING 06/25 EXP LAPAROTOMY, LEFT COLECTOMY, RIGHT COLOSTOMY 2013 ABORTED L4-L5 DISCECTOMY COMPLICATED BY INTRAOPERATIVE ILIAC VEIN AND AORTIC PERFORATION 07/2014 TRACHEOSTOMY 07/2014 CHOLECYSTECTOMY, SECONDARY TO BILE LEAK 07/2014 BILATERAL LOWER EXTREMITY FASCIOTOMIES R/T COMPARTMENT SYNDROME 07/29 DEFIBRILATOR PLACEMENT (R) SIDE 01/08/18 NEW PACEMAKER WIRE 06/05/18 CIRCUMCISION 2 PHIMOSIS/RECURRENT UTI-TASHI 10/01/2018 FAMILY HISTORY FATHER: , LUNG CANCER, DIAGNOSED WITH CANCER MOTHER: , DIABETES, TYPE II, OTHER, DIABETES SIBLINGS: DIABETES, TYPE II, DIABETES, HEART DISEASE 6 BROTHER(S) , 5 SISTER(S) . MOM WITH COPD, CHF. BROTHER WITH HEART DISEASE, DIABETES. SOCIAL HISTORY GENERAL: TOBACCO USE ARE YOU A:CURRENT SMOKER ARE YOU INTERESTED IN QUITTING?NOT READY TO QUIT COUNSELED THE PATIENT ON SMOKING EFFECTS, EDUCATION CXNTPEEP46/14/2019 HOW MANY CIGARETTES A DAY DO YOU SMOKE?6-10 HOW SOON AFTER YOU WAKE UP DO YOU SMOKE YOUR FIRST CIGARETTE?AFTER 60 MIN HOW OFTEN DO YOU SMOKE CIGARETTES?EVERY DAY PATIENT COUNSELED ON THE DANGERS OF TOBACCO USE AND URGED TO QUIT:02/26/2019 SMOKING CESSATION INFORMATION GIVEN12/07/2018 EDUCATION LEVEL OF EDUCATION:NOT FINISHED COLLEGE DIET: REGULAR. LANGUAGE LANGUAGES SPOKEN:BENGALI DOMESTIC VIOLENCE DO YOU FEEL SAFE IN YOUR ENVIRONMENT?YES BMI CARE GOAL FOLLOW-UP ABOVE NORMAL BMI FOLLOW-UPGIVING ENCOURAGEMENT TO EXERCISE RECREATIONAL DRUG USE DENIES. EXERCISE: WALKING. 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, WHEELCHAIR SR. MANAGER NEEDED?NO PAIN CLINIC PFS, CLERGY, PUBLIC HEALTH REFERRALS HAS THE PATIENT BEEN EDUCATED REGARDING HIS/HER PLAN OF CARE?YES HAS THE PATIENT BEEN EDUCATED REGARDING PAIN, THE RISK FOR PAIN, THE IMPORTANCE OF EFFECTIVE PAIN MANAGEMENT, AND THE PAIN ASSESSMENT PROCESS?YES LATEX QUESTIONNAIRE LATEX ALLERGY : HAVE YOU EVER DEVELOPED ANY TYPE OF REACTION AFTER HANDLING LATEX PRODUCTS SUCH RUBBER GLOVES, CONDOMS, DIAPHRAGMS, BALLOONS, SOCKS, OR UNDERWEAR?NO LATEX ALLERGY : HAVE YOU EVER DEVELOPED ANY TYPE OF REACTION DURING OR AFTER DENTAL APPOINTMENT, VAGINAL/RECTAL EXAMINATION, SURGICAL PROCEDURE, OR ANY OTHER EXPOSURE?NO DATE ASKED : 11/27/2018 LATEX RISK : HAVE YOU EVER HAD ANY DIFFICULTY BREATHING OR HIVES AFTER EATING OR HANDLING ANY FRUITS, OR VEGETABLES; SUCH KIWI, BANANAS, STONE FRUITS, OR CHESTNUTSNO LATEX RISK : DO YOU HAVE A PREVIOUS PERSONAL HISTORY OF MORE THAN NINE SURGERIES, SPINA BIFIDA, OR REPEATED CATHERTIZATIONS? YES - PLEASE INDICATE : > 9 SURGERIES LATEX RISK : ARE YOU FREQUENTLY EXPOSED TO LATEX PRODUCTS IN YOUR OCCUPATION?NO CAFFEINE CAFFEINE USE?YES 2 CUPS PER DAY ADVANCE DIRECTIVE ADVANCE DIRECTIVE DISCUSSED WITH PATIENT:YES POA - MATEO NÚÑEZ (); DECLINED HCP INFORMATION. PENTECOSTAL [id number] DRUZE MARITAL STATUS: -MATEO. ALCOHOL SCREENING POINTS: 0, INTERPRETATION: NEGATIVE. OCCUPATION: DISABLED 04/22 FROM [employer] DEPT. REVIEWED WITH PATIENT 09/23/18 1432 JSREVIEWED WITH PATIENT 11/27/18 1034 JSREVIEWED WITH PATIENT 02/26/19 1015 JS. HOSPITALIZATION/MAJOR DIAGNOSTIC PROCEDURE COMPLICATIONS FOLLOWING ATTEMPTED LS SPINE SURGERY 07/18/14-05/17/15 SBO, UTI, INFLUENZA-RESOLVED C NGT 09/2015 BOWEL OBSTRUCTION DECEMBER/2016 ABORTED L4-5 DISKECTOMY, COMPLIACTED BY INTRAOPERATIVE ILIACVEIN AND AORTIC PERFORATION 07/29 BILAT LOWER EXT FASCIOTOMIES (COMPARTMENT SYNDROME) 07/29 EXP LAPAROTOMY, LEFT COLECTOMY, RIGHT COLOSTOMY 07/29 OPEN CHOLECYTECTOMY, SECONADRY BILE LEAK 07/29 TRACHEOSTOMY 07/29 REMOVAL INFECTED AORTOBIFEMORAL GRAFT, INSERTION OF SECOND ABF GRAFT 08/28 TEMPORARY PACEMAKER 08/28 ERCP, SPHICTEROTOMY, BILARY STENT PLACEMENT 09/29 FIRST OF SEVERAL SACRAL DECUB DEBRIDEMENTS 11/27 EGD--BILIARY STENT REMOVED 11/27 TRACH REMOVAL/CLOSURE 03/29 SMC-ELEVATED INR 7.9 C BLEEDING AT OSTOMY SITE 04/19-05/01 HOSPITALIZED FOR DEFIBRILATOR PLACEMENT 01/08/18-01/20/18 NEW PACEMAKER WIRE 06/04/18 BRADYCARDIA 02/18/19-02/21/19 REVIEW OF SYSTEMS REVIEWED BY: PROVIDER: LUX BETTENCOURT MD . CONSTITUTIONAL: ANY CHANGE IN YOUR MEDICAL CONDITION? NO . CHILLS NO . FEVER NO . INFECTION: DO YOU HAVE NEW INFECTIONS? NO . DO YOU HAVE HISTORY OF MRSA? NO . MUSCULOSKELETAL: ANY NEW PATTERNS OF PAIN OR NUMBNESS? NO . GASTROENTEROLOGY: ANY NEW CHANGE IN BOWEL CONTROL? NO . GENITOURINARY: ANY NEW CHANGE IN BLADDER CONTROL? NO . IS THERE A CHANCE YOU COULD BE ? NO . HEMATOLOGY/LYMPH: DO YOU TAKE ANY BLOOD THINNERS? (FOR EXAMPLE- COUMADIN, PLAVIX, AGGRENOX, PLATEL, PRADAXA, OR XARELTO) NO . WHEN WAS YOUR LAST DOSE? DATE: TIME: . NEUROLOGY: HAVE YOU FALLEN IN THE PAST 12 MONTHS? YES, STATES FALL ABOUT A WEEK AGO, LEGS WENT OUT ON HIM BUT HE DID CATCH HIMSELF SOME. WENT TO ED, BRADCARDIA RELATED TO COREG MEDICATION, HOSPITALIZED FOR 3 NIGHTS . ANY NEW EXTREMITY NUMBNESS OR WEAKNESS? NO . CARDIOLOGY: DO YOU HAVE A PACEMAKER OR DEFIBRILLATOR? YES, DEFIBRILLATOR . RESPIRATORY: HAVE YOU BEEN SICK IN THE PAST WEEK? NO . FEVER NO . FLU LIKE SYMPTOMS? NO . COUGH NO . INTEGUMENTARY: DO YOU HAVE ANY RASHES OR OPEN SORES? YES, STATES SACRUM WOUND DEBRIDED BY DR. RAZO YESTERDAY. ALSO STATES OPENING ON RIGHT BIG TOE, CUT OPEN BY DR. RAZO YESTERDAY . ALLERGIC/IMMUNO: ARE YOU ALLERGIC TO IV DYE? NO . ANY NEW ALLERGIES? NO . PSYCHIATRIC: DO YOU HAVE THOUGHTS OF HURTING YOURSELF OR SOMEONE ELSE? NO . ARE YOU ABUSED, NEGLECTED, OR IN AN UNSAFE ENVIRONMENT? NO . ENDOCRINOLOGY: ARE YOU DIABETIC? NO . OTHER: DO YOU NEED ANY PRESCRIPTIONS? YES . IF YES, PLEASE LIST: ____OXYCODONE HCL 10 MG . ANY NEW PROBLEMS WITH YOUR MEDICATIONS? YES, COREG CAUSED BRADYCARDIA AND HOSPITALIZATION LAST WEEK, MEDICATION STOPPED . WHEN DID YOU LAST EAT? ____ . WHEN DID YOU LAST DRINK? ____ . WHAT DID YOU LAST DRINK? ____ . NAME OF PERSON DRIVING YOU HOME? ____ . DO YOU HAVE ANY OTHER QUESTIONS OR CONCERNS NO . VITAL SIGNS WT 198 LBS, HT 69 IN, BMI 29.24 INDEX, BP 139/62 MM HG, HR 67 /MIN, RR 18 /MIN, TEMP 96.6 F, OXYGEN SAT % 99%, SAFE IN ENV? (Y/N) YES, NA INITIALS AW 1000, REVIEWED BY: JS. EXAMINATION GENERAL EXAMINATION: PATIENT IS ALERT O X 3 AND COOPERATIVE. PATIENT HAS DIFFICULTY STANDING. PATIENT IS UNSTEADY AND I HAD TO HOLD HIM TO PREVENT HIM FROM FALLING. MRI OF THE LUMBAR SPINE DONE ON 01/04/2016 SHOWS POST LAMINECTOMY CHANGES. ASSESSMENTS LUMBAR POST-LAMINECTOMY SYNDROME - M96.1 (PRIMARY) INTERVERTEBRAL DISC DISORDER WITH RADICULOPATHY OF LUMBAR REGION - M51.16 TREATMENT LUMBAR POST-LAMINECTOMY SYNDROME CLINICAL NOTES: WE DISCUSSED SEVERAL ISSUES WITH MR. NÚÑEZ'S PAIN MANAGEMENT CASE. THE PATIENT WILL CONTINUE USING OXYCODONE NEEDED FOR THE SOMATIC PAIN. ISTOP _#[id number] WAS REVIEWED. THE PATIENT BROUGHT HIS MEDICATION WITH HIM IN THE ORIGINAL BOTTLE TO TODAY'S VISIT. URINE TOXICOLOGY DONE ON 11/27/2018 SHOWS CONCURRENT RESULTS. THE PATIENT WILL FOLLOW UP IN 3 MONTHS. INSTRUCTIONS WERE GIVEN, QUESTIONS WERE ANSWERED, PATIENT REPORTS UNDERSTANDING AND AGREES WITH THE PLAN. I, TOR PUGA, DOCUMENTED THE ABOVE INFORMATION ACTING A SCRIBE FOR DR. BETTENCOURT. I HAVE REVIEWED THE ABOVE DOCUMENT, WRITTEN BY TOR VILLANUEVA AND I VERIFY THAT IT IS ACCURATE. . OTHERS REFILL OXYCODONE HCL TABLET, 10 MG, 1 TABLET NEEDED, ORALLY, DAILY PRN SEVERE PAIN MDD=1, 30 DAYS, 25, REFILLS 0 PROCEDURES PN WORKMANS' COMP OPINION IN YOUR OPINION, WAS THE INCIDENT THAT THE PATIENT DESCRIBED THE COMPETENT MEDICAL CAUSE OF THIS INJURY/ILLNESS? YES ARE THE PATIENT'S COMPLAINTS CONSISTENT WITH HIS/HER HISTORY OF THE INJURY/ILLNESS? YES IS THE PATIENT'S HISTORY OF THE INJURY/ILLNESS CONSISTENT WITH YOUR OBJECTIVE FINDING? YES WHAT IS THE PERCENTAGE OF TEMPORARY IMPAIRMENT? TOTAL = 100% IS THE PATIENT WORKING? NO DOCTOR ON SITE: LUX CARPIO MD PROCEDURE CODES FA211 ESTABILISHED PATIENT [facility] FACILITY CHARGE G8427 CURRENT MEDS W/DOSAGES DOCUMENTED G8730 PAIN ASSESS POS TOOL F/U PLAN DOC DISPOSITION & COMMUNICATION FOLLOW UP 3 MONTHS (REASON: W/C LOW BACK) ELECTRONICALLY SIGNED BY LUX BETTENCOURT MD, MD ON 03/06/2019 AT 06:54 PM EDT DISCLAIMER : THIS IS A VISIT SUMMARY EXTRACTED FROM THE [facility] CHART. IT IS NOT A COPY OF THE [employer] PROGRESS NOTE. MARIAELENA
== END ==
LOC: M PAIN 10:00
PROVIDERS: ATTEND Anesthesiology
DX: M96.1 Postlaminectomy syndrome, not elsewhere classified (principal); M51.16 Intervertebral disc disorders with radiculopathy, lumbar region; E78.5 Hyperlipidemia, unspecified; E11.9 Type 2 diabetes mellitus without complications; J44.9 Chronic obstructive pulmonary disease, unspecified; G47.33 Obstructive sleep apnea (adult) (pediatric); K21.9 Gastro-esophageal reflux disease without esophagitis; F17.210 Nicotine dependence, cigarettes, uncomplicated; Z88.8 Allergy status to other drugs, medicaments and biological substances; Z95.810 Presence of automatic (implantable) cardiac defibrillator; Z79.82 Long term (current) use of aspirin; Z79.899 Other long term (current) drug therapy

== ENCOUNTER → 2019-03-31 | Outpatient (REF) | payer OTHER ==
[2019-03-31 13:03] LABS: APPEARANCE, URINE CLEAR (CLEAR); BACTERIA, URINE AUTO NEGATIVE (NEGATIVE); BILIRUBIN, URINE AUTO NEGATIVE (NEGATIVE); BLOOD, URINE BLOOD 1+ (NEGATIVE); CALCIUM OXALATE CRYSTALS SMALL; COLOR, URINE YELLOW (YELLOW); GLUCOSE, URINE (UA) AUTO NEGATIVE (NEGATIVE); KETONE, URINE AUTO NEGATIVE (NEGATIVE); LEUKOCYTE ESTERASE, URINE AUTO TRACE (NEGATIVE); MUCUS, URINE SMALL (NEGATIVE); NITRITE, URINE AUTO NEGATIVE (NEGATIVE); PROTEIN, URINE AUTO 1+ mg/dL (NEGATIVE); RBC, URINE AUTO 6 /HPF (0-3); SPECIFIC GRAVITY URINE AUTO 1.018 (1.002-1.035); SQUAMOUS EPITHELIAL CELL UR AU 0 /HPF (0-6); UROBILINOGEN, URINE AUTO 0.2 mg/dL (0.0-2.0); WBC, URINE AUTO 11 /HPF (0-3)
== END ==
LOC: M LAB REF 12:45
PROVIDERS: ATTEND Family Medicine
DX: N39.0 Urinary tract infection, site not specified (principal)

== ENCOUNTER → 2019-04-08 | Outpatient (REF) | payer OTHER ==
[2019-04-08 15:08] LABS: APPEARANCE, URINE CLEAR (CLEAR); BACTERIA, URINE AUTO 1+ (NEGATIVE); BILIRUBIN, URINE AUTO NEGATIVE (NEGATIVE); BLOOD, URINE BLOOD NEGATIVE (NEGATIVE); COLOR, URINE YELLOW (YELLOW); GLUCOSE, URINE (UA) AUTO 1+ mg/dL (NEGATIVE); KETONE, URINE AUTO NEGATIVE (NEGATIVE); LEUKOCYTE ESTERASE, URINE AUTO 2+ (NEGATIVE); NITRITE, URINE AUTO NEGATIVE (NEGATIVE); PROTEIN, URINE AUTO NEGATIVE (NEGATIVE); RBC, URINE AUTO 5 /HPF (0-3); SQUAMOUS EPITHELIAL CELL UR AU 0 /HPF (0-6); UROBILINOGEN, URINE AUTO 0.2 mg/dL (0.0-2.0); WBC, URINE AUTO 28 /HPF (0-3)
== END ==
LOC: M LAB REF 13:07
PROVIDERS: ATTEND Family Medicine
DX: N39.0 Urinary tract infection, site not specified (principal)

== ENCOUNTER → 2019-04-30 | Outpatient (CLI) | payer OTHER ==
[~2019-04-30] MED LIST changes: -ZINC220T PO; +ZINC220T6 PO
[2019-04-30 13:27] LABS: BASO # 0.1 10^3/uL (0.0-0.2); BASO % 0.6 % (0.0-1.0); EOS # 0.3 10^3/uL (0.0-0.50); EOS % 2.5 % (0.0-3.0); HEMATOCRIT 47.3 % (42.0-52.0); HEMOGLOBIN 15.1 g/dl (13.5-17.5); LYMPH # 1.6 10^3/uL (1.5-4.5); LYMPH % 13.3 % (24.0-44.0); MEAN CORPUSCULAR HEMOGLOBIN 30.8 pg (27.0-33.0); MEAN CORPUSCULAR HGB CONC 31.9 g/dl (32.0-36.5); MEAN CORPUSCULAR VOLUME 96.5 fl (80.0-96.0); MONO # 1.1 10^3/uL (0.0-0.8); MONO % 9.4 % (0.0-5.0); NEUTROPHILS # 8.8 10^3/uL (1.8-7.7); NEUTROPHILS % 73.9 % (36.0-66.0); PLATELET COUNT, AUTOMATED 284 10^3/uL (150-450); WHITE BLOOD COUNT 11.9 10^3/uL (4.0-10.0)
[2019-04-30 13:56] LABS: ALBUMIN 3.4 GM/DL (3.2-5.2); BILIRUBIN,TOTAL 0.4 MG/DL (0.2-1.0); CHOLESTEROL RISK RATIO 3.142 (<5); CREATININE FOR GFR 1.39 MG/DL (0.70-1.30); GLOMERULAR FILTRATION RATE 54.9 (>49); POTASSIUM SERUM 4.3 MEQ/L (3.5-5.1); TOTAL PROTEIN 7.3 GM/DL (6.4-8.2)
[2019-04-30 13:59] LABS: HEMOGLOBIN A1c 8.2 %
--- NOTE | 2019-04-30 14:52 | REP ---
REASON: Back pain. COMPARISON: 12/10/2013. Severe L4-5 disc space narrowing has developed since the last exam. Marked degenerative facet joints are seen at L4-5 and L5-S1 bilaterally. This has increased. There is disc space narrowing posteriorly and moderately at every level status quo. IMPRESSION: Severe L4-5 disc space narrowing with endplate upon endplate phenomena. I have been given no surgical history. There are surgical clips seen anterior to the spine on this exam, which were not present on the prior exam. MRI is recommended provided the patient is MRI compatible. If the patient is not MRI compatible, then CT is recommended. Electronically Signed by Ciro Almazan DO 04/30/2019 02:56 P
--- NOTE | 2019-04-30 14:56 | REP ---
ANKLE SERIES: Four views. HISTORY: Lumbar spondylosis. FINDINGS: Four views of the right ankle demonstrate advanced diffuse osteopenia. There is a large Achilles and a small plantar calcaneal spur. Ankle mortise is intact. No erosive changes seen. IMPRESSION: Advanced diffuse osteopenia. Large Achilles calcaneal spur. No acute bony abnormality. Electronically Signed by Antolin Uribe MD 04/30/2019 03:24 P
== END ==
LOC: M LAB 12:15
PROVIDERS: ATTEND Family Medicine
DX: M47.816 Spondylosis without myelopathy or radiculopathy, lumbar region (principal)

== ENCOUNTER → 2019-05-24 | Outpatient (CLI) | payer OTHER ==
--- NOTE | 2019-05-27 01:39 | ECWPNPC ---
PATIENT NAME: MACKENZIE NÚÑEZ : 1955 GENDER: MALE VISIT DATE: 05/24/2019 DISCHARGE DATE: 05/24/19 1338 VISIT LOCKED DATE TIME: PHYSICIAN: EMMANUEL BARAJAS PHYSICIAN PAGER NO: [phone] RESOURCE: EMMANUEL BARAJAS REASON FOR APPOINTMENT 1. W/C LOW BACK HISTORY OF PRESENT ILLNESS HISTORY OF PRESENT ILLNESS: PAIN THE PATIENT DESCRIBES THE PAIN... 64-YEAR-OLD MALE IN FOR WORKMEN'S COMP. CHRONIC PAIN FOLLOW-UP. HE DOES ADMIT TO A RECENT FALL AND STATES SHE WAS SEEN BY HIS PCP FOR THIS AND IS AWAITING A CT. HE RATES HIS PAIN AT A 9 OUT OF 10 CURRENTLY AND DESCRIBES IT SHARP, STABBING, SORE, AND TENDER. HE WOULD LIKE TO DISCUSS ADDITIONAL MEDICATION TO HELP ALLEVIATE SYMPTOMS. FALL RISK SCREENING: SCREENING :NO FALLS REPORTED IN THE LAST YEAR CURRENT MEDICATIONS TAKING PANTOPRAZOLE SODIUM 40 MG TABLET DELAYED RELEASE 1 TABLET ORALLY ONCE A DAY TAKING FERROUS SULFATE 325 (65 FE) MG TABLET 1 TABLET ORALLY ONCE A DAY TAKING ASPIRIN 81 MG TABLET CHEWABLE 1 TABLET ORALLY ONCE A DAY TAKING ROSUVASTATIN CALCIUM 10 MG TABLET 1 TABLET ORALLY ONCE A DAY TAKING GABAPENTIN 600 MG TABLET 1 TABLET ORALLY THREE TIMES DAILY TAKING MIRALAX - PACKET 1 PACKET MIXED WITH 8 OUNCES OF FLUID ORALLY ONCE A DAY TAKING FLUCONAZOLE 200 MG TABLET 1 TAB ORALLY ONCE A DAY TAKING CERTAVITE/ANTIOXIDANTS - TABLET 1 TABLET ORALLY ONCE A DAY TAKING OXYCODONE HCL 10 MG TABLET 1 TABLET NEEDED ORALLY DAILY PRN SEVERE PAIN MDD=1 TAKING LOSARTAN POTASSIUM 25 MG TABLET 1 TABLET ORALLY EVERY MORNING TAKING CARVEDILOL 6.25 MG TABLET 1 TAB ORALLY BID TAKING ACETOMINOPHEN-325 MG 325 MG TABLET 1 OR 2 TABS ORALLY EVERY FOUR HOURS PRN TAKING MAY HAVE - - LARGE NON-SKID SOCKS FOR DX=G82.21 (PARAPLEGIA) DAILY TAKING PREVAIL WET WIPES - MISCELLANEOUS DIRECTED FOR DX=G82.21 (PARAPLEGIA) DAILY TAKING LANCETS - MISCELLANEOUS DIRECTED DX: E11.9 TWICE A DAY TAKING GAIT/TRANSFER BELT - MISCELLANEOUS DIRECTED TAKING BLOOD GLUCOSE TEST - STRIP DIRECTED INTRADERMALLY BID DX: E11.9 TAKING MAY USE 1 - BRACE FOR LEFT LOWER EXTREMITY DIRECTED DX:R27.0 DAILY CONTRACTURE OF LOWER JOINT, NOTES: FAX TO [phone] TAKING MULTIVITAMIN & MINERAL TABLET 1 TAB(S) ORALLY DAILY TAKING HYDROCERIN - CREAM DIRECTED EXTERNALLY BID TO LOWER LEGS FROM KNEES DOWN TAKING SILDENAFIL CITRATE 100 MG TABLET 1 TABLET NEEDED ORALLY ONCE A DAY PRN TAKING PAROXETINE HCL 40 MG TABLET 1 TABLET IN THE MORNING ORALLY ONCE A DAY NOT-TAKING FERROUS SULFATE 325 (65 FE) MG TABLET 1 TABLET ORALLY ONCE A DAY NOT-TAKING PANTOPRAZOLE SODIUM 40 MG TABLET DELAYED RELEASE 1 TABLET ORALLY ONCE A DAY NOT-TAKING ROSUVASTATIN CALCIUM 10 MG TABLET 1 TABLET ORALLY ONCE A DAY MEDICATION LIST REVIEWED AND RECONCILED WITH THE PATIENT PAST MEDICAL HISTORY CAD, S/P AWMI POST-OP LAMINECTOMY-05/2017 VERY SMALL APICAL THROMBUS, LVEF 40%-AKINESIS OF APEX, MID ANT, MID ANTEROSEPTAL, LV DIASTOLIC DYSFX BY 05/2017 TTE-ANTECOL/07/2017 RST S ISCHEMIA BUT FOCAL/GLOBAL ABNORMALITY, LVEF 28%, HIGH RISK-JORGE/12/2017 CATH-NO SIGNIFICANT CAD-GABY/SP ICD 01/12/2018-GABY/02/19/19 TTE C LVEF 50-55%/NO JOAQUIM DYSFX-ETHAN HYPERLIPIDEMIA, 2B PAD T2DM NID COPD/EMPHYSEMA - FEV1 3.7 IN 2007, LIKELY FROM LONG-TERM HEAVY SMOKING ARON--INTOLERANT OF CPAP ED GERD CHRONIC 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 S/P EMERGENT ABDOMINAL AORTO BI-ILIAC ARTERY BYPASS GRAFT--REQUIRED 17 LITERS SALINE, 25 UNITS PRBC, 336 UNITS PLATELETS, 1 LITER FFP, 6 LITER CELL-SAVER ISCHEMIA LOWER EXTREMITIES WITH COMPARTMENT SYNDROME, REQUIRING BILAT 4 COMPATMENT FASCIOTOMIES SEPTIC SHOCK 2 PERFORATED VISCUS S/P EMERGENT LEFT COLECTOMY (C R COLOSTOMY), OPEN CHOLECYSTECTOMY, LIVER PACKING, ABTHERA REPLACMENT CHOLECYSTITIS, BILE LEAK POST CHOLECYSTECTYOMY LEFT COLECTOMY AND RT PARTIAL COLECTOMY WITH COLOSTOMY BRADYARHYTHMIA WITH CARDIAC ARREST/IWMI INFECTED AORTO BI-ILIAC BYPASS GRAFT C 2 CHRONIC DISSEMINATATED CANDIDIASIS AND S. EPIDERMIDIS BACTEREMIA ENTEROCTANEOUS FISTULAE H/O ACRODERMATITIS ENTEROPTHICA (ZINC-DEFICIENCY DERMATITIS) [facility] WITH TRACHEOSTOMY, SUBSEQUENT CLOSURE OF TRACH H/O STAGE 4 SACRAL DECUBITUS PSEUDOMONUS OSTEOMYELITIS HIT--HEPARIN INDUCED THROMBOCYTOPENIA H/O RECURRENT GOUT, L PODAGRA LUMBAR DJD- L3/4 MOD CCS, L4/5 MILD C GRADE 1 LITHESIS AND L L4 COMPRESSION IN NF, L5/S1 DIFFUSE BULGE C MINIMAL TS COMPRESSION BY 04/2017 CT LS SPINE RECURRENT UTI ALLERGIES REMERON: NIGHTMARES - SIDE EFFECTS WELLBUTRIN: AGITATION - SIDE EFFECTS ZOLOFT: DIARRHEA - SIDE EFFECTS PROZAC: DEPRESSION - SIDE EFFECTS SURGICAL HISTORY APPENDECTOMY RIH LEFT ELBOW ULNAR NERVE TRANSPOSITION LUMBAR SPINAL FUSION 04/24 COLONOSCOPY--NL 11/17 REMOVAL SCREWS, RODS LUMBAR SPINE, BONE GRAFTING 06/25 EXP LAPAROTOMY, LEFT COLECTOMY, RIGHT COLOSTOMY 2013 ABORTED L4-L5 DISCECTOMY COMPLICATED BY INTRAOPERATIVE ILIAC VEIN AND AORTIC PERFORATION 07/2014 TRACHEOSTOMY 07/2014 CHOLECYSTECTOMY, SECONDARY TO BILE LEAK 07/2014 BILATERAL LOWER EXTREMITY FASCIOTOMIES R/T COMPARTMENT SYNDROME 07/29 DEFIBRILATOR PLACEMENT (R) SIDE 01/08/18 NEW PACEMAKER WIRE 06/05/18 CIRCUMCISION 2 PHIMOSIS/RECURRENT UTI-TASHI 10/01/2018 FAMILY HISTORY FATHER: , LUNG CANCER, DIAGNOSED WITH OTHER MALIGNANT NEOPLASM OF UNSPECIFIED SITE MOTHER: , DIABETES, TYPE II, DIABETES, OTHER SPECIFIED CONDITIONS INFLUENCING HEALTH STATUS SIBLINGS: DIABETES, TYPE II, DIABETES, UNSPECIFIED HEART DISEASE 6 BROTHER(S) , 5 SISTER(S) . MOM WITH COPD, CHF. BROTHER WITH HEART DISEASE, DIABETES. SOCIAL HISTORY GENERAL: TOBACCO USE ARE YOU A:CURRENT SMOKER ARE YOU INTERESTED IN QUITTING?NOT READY TO QUIT COUNSELED THE PATIENT ON SMOKING EFFECTS, EDUCATION [id number]/15/2019 HOW MANY CIGARETTES A DAY DO YOU SMOKE?6-10 HOW SOON AFTER YOU WAKE UP DO YOU SMOKE YOUR FIRST CIGARETTE?AFTER 60 MIN HOW OFTEN DO YOU SMOKE CIGARETTES?EVERY DAY PATIENT COUNSELED ON THE DANGERS OF TOBACCO USE AND URGED TO QUIT:04/29/2019 SMOKING CESSATION INFORMATION GIVEN05/24/2019 EDUCATION LEVEL OF EDUCATION:NOT FINISHED COLLEGE DIET: REGULAR. LANGUAGE LANGUAGES SPOKEN:WELSH DOMESTIC VIOLENCE DO YOU FEEL SAFE IN YOUR ENVIRONMENT?YES BMI CARE GOAL FOLLOW-UP ABOVE NORMAL BMI FOLLOW-UPGIVING ENCOURAGEMENT TO EXERCISE RECREATIONAL DRUG USE DENIES. EXERCISE: WALKING. 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 NEEDED?NO PAIN CLINIC PFS, CLERGY, PUBLIC HEALTH REFERRALS HAS THE PATIENT BEEN EDUCATED REGARDING HIS/HER PLAN OF CARE?YES HAS THE PATIENT BEEN EDUCATED REGARDING PAIN, THE RISK FOR PAIN, THE IMPORTANCE OF EFFECTIVE PAIN MANAGEMENT, AND THE PAIN ASSESSMENT PROCESS?YES LATEX QUESTIONNAIRE LATEX ALLERGY : HAVE YOU EVER DEVELOPED ANY TYPE OF REACTION AFTER HANDLING LATEX PRODUCTS SUCH RUBBER GLOVES, CONDOMS, DIAPHRAGMS, BALLOONS, SOCKS, OR UNDERWEAR?NO LATEX ALLERGY : HAVE YOU EVER DEVELOPED ANY TYPE OF REACTION DURING OR AFTER DENTAL APPOINTMENT, VAGINAL/RECTAL EXAMINATION, SURGICAL PROCEDURE, OR ANY OTHER EXPOSURE?NO DATE ASKED : 11/27/2018 LATEX RISK : HAVE YOU EVER HAD ANY DIFFICULTY BREATHING OR HIVES AFTER EATING OR HANDLING ANY FRUITS, OR VEGETABLES; SUCH KIWI, BANANAS, STONE FRUITS, OR CHESTNUTSNO LATEX RISK : DO YOU HAVE A PREVIOUS PERSONAL HISTORY OF MORE THAN NINE SURGERIES, SPINA BIFIDA, OR REPEATED CATHERIZATIONS? YES - PLEASE INDICATE : > 9 SURGERIES LATEX RISK : ARE YOU FREQUENTLY EXPOSED TO LATEX PRODUCTS IN YOUR OCCUPATION?NO CAFFEINE CAFFEINE USE?YES 2 CUPS PER DAY ADVANCE DIRECTIVE ADVANCE DIRECTIVE DISCUSSED WITH PATIENT:YES POA - MATEO NÚÑEZ (); DECLINED HCP INFORMATION. HINDUISM [id number] JUDAISM MARITAL STATUS: -MAETO. ALCOHOL SCREENING POINTS: 0, INTERPRETATION: NEGATIVE. OCCUPATION: DISABLED 04/22 FROM [employer] DEPT. REVIEWED WITH PATIENT 09/23/18 1432 JSREVIEWED WITH PATIENT 11/27/18 1034 JSREVIEWED WITH PATIENT 02/26/19 1015 JSREVIEWED WITH PATIENT 05/24/19 1303 NLJ. HOSPITALIZATION/MAJOR DIAGNOSTIC PROCEDURE COMPLICATIONS FOLLOWING ATTEMPTED LS SPINE SURGERY 07/18/14-05/17/15 SBO, UTI, INFLUENZA-RESOLVED C NGT 09/2015 BOWEL OBSTRUCTION DECEMBER/2016 ABORTED L4-5 DISKECTOMY, COMPLIACTED BY INTRAOPERATIVE ILIACVEIN AND AORTIC PERFORATION 07/29 BILAT LOWER EXT FASCIOTOMIES (COMPARTMENT SYNDROME) 07/29 EXP LAPAROTOMY, LEFT COLECTOMY, RIGHT COLOSTOMY 07/29 OPEN CHOLECYTECTOMY, SECONADRY BILE LEAK 07/29 TRACHEOSTOMY 07/29 REMOVAL INFECTED AORTOBIFEMORAL GRAFT, INSERTION OF SECOND ABF GRAFT 08/28 TEMPORARY PACEMAKER 08/28 ERCP, SPHICTEROTOMY, BILARY STENT PLACEMENT 09/29 FIRST OF SEVERAL SACRAL DECUB DEBRIDEMENTS 11/27 EGD--BILIARY STENT REMOVED 11/27 TRACH REMOVAL/CLOSURE 03/29 SMC-ELEVATED INR 7.9 C BLEEDING AT OSTOMY SITE 04/19-05/01 HOSPITALIZED FOR DEFIBRILATOR PLACEMENT 01/08/18-01/20/18 NEW PACEMAKER WIRE 06/04/18 SYNCOPE 2 SB TO 40S, CARVE DECREASED 25 BID TO 6.25 BID 02/18-06/03 REVIEW OF SYSTEMS REVIEWED BY: PROVIDER: JERMAIN BARAJAS 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 CONSTITUTIONAL: ANY CHANGE IN YOUR MEDICAL CONDITION? NO . CHILLS NO . FEVER NO . INFECTION: DO YOU HAVE NEW INFECTIONS? NO . DO YOU HAVE HISTORY OF MRSA? NO . MUSCULOSKELETAL: ANY NEW PATTERNS OF PAIN OR NUMBNESS? YES- STATES INCREASED PAIN IN LOWER BACK, LEFT ANKLE HAS BEEN FEELING NUMB . GASTROENTEROLOGY: ANY NEW CHANGE IN BOWEL CONTROL? NO . GENITOURINARY: ANY NEW CHANGE IN BLADDER CONTROL? NO . IS THERE A CHANCE YOU COULD BE ? NO . HEMATOLOGY/LYMPH: DO YOU TAKE ANY BLOOD THINNERS? (FOR EXAMPLE- COUMADIN, PLAVIX, AGGRENOX, PLATEL, PRADAXA, OR XARELTO) NO . WHEN WAS YOUR LAST DOSE? DATE: TIME: . NEUROLOGY: HAVE YOU FALLEN IN THE PAST 12 MONTHS? YES- APRIL 23, 2019- STATES HE WAS CHENY TIRE, STATES THE BACK OF HIS WALKER GOT CAUGHT ON THE RUG AND HE FELL FACE FIRST, STATES HE WENT TO SEE DR STANTON ON 04/29/19 AND HAD X-RAYS AND HE IS STILL WAITING FOR APPROVAL FOR CT SCAN . ANY NEW EXTREMITY NUMBNESS OR WEAKNESS? YES- STATES LEFT ANKLE HAS BEEN NUMB SINCE FALL . CARDIOLOGY: DO YOU HAVE A PACEMAKER OR DEFIBRILLATOR? YES- PACER/DEFRIBILLATOR . RESPIRATORY: HAVE YOU BEEN SICK IN THE PAST WEEK? NO . FEVER NO . FLU LIKE SYMPTOMS? NO . COUGH NO . INTEGUMENTARY: DO YOU HAVE ANY RASHES OR OPEN SORES? YES- SACRAL WOUND- PATIENT SEES DR. RAZO . ALLERGIC/IMMUNO: ARE YOU ALLERGIC TO IV DYE? NO . ANY NEW ALLERGIES? NO . PSYCHIATRIC: DO YOU HAVE THOUGHTS OF HURTING YOURSELF OR SOMEONE ELSE? NO . ARE YOU ABUSED, NEGLECTED, OR IN AN UNSAFE ENVIRONMENT? NO . ENDOCRINOLOGY: ARE YOU DIABETIC? NO . OTHER: DO YOU NEED ANY PRESCRIPTIONS? YES . IF YES, PLEASE LIST: ____OXYCODONE NEEDS REFILL ON 05/30/19 . ANY NEW PROBLEMS WITH YOUR MEDICATIONS? NO . WHEN DID YOU LAST EAT? ____ . WHEN DID YOU LAST DRINK? ____ . WHAT DID YOU LAST DRINK? ____ . NAME OF PERSON DRIVING YOU HOME? ____ . DO YOU HAVE ANY OTHER QUESTIONS OR CONCERNS YES- WONDERING IF HE CAN HAVE HIS OXYCODONE INCREASED . VITAL SIGNS WT 195 LBS, HT 69 IN, BMI 28.79 INDEX, BP 153/72 MM HG, HR 54 /MIN, RR 18 /MIN, TEMP 97.5 F, OXYGEN SAT % 97%, SAFE IN ENV? (Y/N) YES, NA INITIALS WA 12:56, REVIEWED BY: DARON. EXAMINATION GENERAL EXAMINATION: GENERALNO ACUTE DISTRESS, WELL NOURISHED AND HYDRATED. PSYCHAPPROPRIATE MOOD AND AFFECT . LUNGS:CLEAR TO AUSCULTATION BILATERALLY, NO WHEEZES, RHONCHI, RALES. HEART:NO MURMURS, REGULAR RATE AND RHYTHM. ASSESSMENTS POSTLAMINECTOMY SYNDROME OF LUMBOSACRAL REGION - M96.1 (PRIMARY) TREATMENT POSTLAMINECTOMY SYNDROME OF LUMBOSACRAL REGION START TIZANIDINE HCL TABLET, 4 MG, 1 TABLET NEEDED, ORALLY, TWO TIMES DAILY, 30 DAYS, 60 CLINICAL NOTES: 64-YEAR-OLD MALE IN FOR WORKMEN'S COMP. CHRONIC PAIN FOLLOW-UP. GIVEN PRESENTING SYMPTOMS AND RESULTS OF PHYSICAL EXAMINATION RECOMMENDED ADDITION OF TIZANIDINE TO CURRENT MEDICATION REGIMEN WITH FOLLOW-UP IN ONE MONTH TO DETERMINE EFFICACY OF TREATMENT. POTENTIAL SEDATION FROM MUSCLE RELAXERS DISCUSSED WITH PATIENT. PATIENT HAS EXPRESSED UNDERSTANDING OF AND WAS IN AGREEMENT WITH TREATMENT PLAN. GIVEN TIME TO ASK QUESTIONS AND EXPRESS CONCERNS., ISTOP REGISTRY REVIEWED AND DEMONSTRATES COMPLLIANCE. (REF # [id number] ) BRINGS IN MEDICATIONS WHICH IS APPROPRIATE FOR WHAT WAS DISPENSED. RECENT URINE TOXICOLOGY REVIEWED. NO UNAUTHORIZED MEDICATIONS. NO ILLICIT SUBSTANCES AND PRESCRIBED MEDICATIONS WERE PRESENT. PROCEDURES PN WORKMANS' COMP OPINION IN YOUR OPINION, WAS THE INCIDENT THAT THE PATIENT DESCRIBED THE COMPETENT MEDICAL CAUSE OF THIS INJURY/ILLNESS? YES ARE THE PATIENT'S COMPLAINTS CONSISTENT WITH HIS/HER HISTORY OF THE INJURY/ILLNESS? YES IS THE PATIENT'S HISTORY OF THE INJURY/ILLNESS CONSISTENT WITH YOUR OBJECTIVE FINDING? YES WHAT IS THE PERCENTAGE OF TEMPORARY IMPAIRMENT? TOTAL = 100% IS THE PATIENT WORKING? NO DOCTOR ON SITE: LUX CARPIO MD PREVENTIVE MEDICINE PAIN CLINIC TEACHING: MEDITATION TIZANIDINE DRUG INFORMATION PRINTED AND REVIEWED WITH PATIENT 05/24/19 1334 NLJ. PROCEDURE CODES FA211 ESTABILISHED PATIENT [facility] FACILITY CHARGE DISPOSITION & COMMUNICATION FOLLOW UP 4 WEEKS (REASON: MEDICATION CHANGE) ELECTRONICALLY SIGNED BY KAELA JUNIOR ON 05/25/2019 AT 12:23 PM EDT DISCLAIMER : THIS IS A VISIT SUMMARY EXTRACTED FROM THE [employer] CHART. IT IS NOT A COPY OF THE [employer] PROGRESS NOTE. MARIAELENA
== END ==
LOC: M PAIN 13:00
PROVIDERS: ATTEND Family Medicine
DX: M96.1 Postlaminectomy syndrome, not elsewhere classified (principal); E78.5 Hyperlipidemia, unspecified; E11.9 Type 2 diabetes mellitus without complications; J44.9 Chronic obstructive pulmonary disease, unspecified; G47.33 Obstructive sleep apnea (adult) (pediatric); K21.9 Gastro-esophageal reflux disease without esophagitis; F17.210 Nicotine dependence, cigarettes, uncomplicated; Z88.8 Allergy status to other drugs, medicaments and biological substances; Z95.0 Presence of cardiac pacemaker; Z79.82 Long term (current) use of aspirin; Z79.899 Other long term (current) drug therapy

== ENCOUNTER → 2019-06-10 | Outpatient (CLI) | payer OTHER ==
--- NOTE | 2019-06-11 09:49 | REP ---
CT LUMBAR SPINE WITHOUT CONTRAST: HISTORY: Lumbar spondylosis. Comparison CT study of the lumbar spine is from May 12, 2017. CT FINDINGS: Digital preliminary telecommunications manager views demonstrate a pacemaker in the heart, clips in the right upper quadrant of the abdomen, and a enterostomy ring in the right mid abdomen. There is a rudimentary disc at the S1, S2 level. At L5-S1, there is a left laminectomy defect with posterior element bone graft fusion as before. Diffuse disc bulging is again seen. No central canal stenosis is seen. There is a new vacuum phenomenon in the left side of the L5-S1 disc. At the superior endplate of S1 anteriorly, there is an area of bone destruction with reactive sclerosis surrounding it at the anterior aspect of the S1 vertebral body centrally. This area of lucency measures 2.4 cm anteroposterior x 1.2 cm craniocaudal x 3.2 cm medial to lateral spanning the midline. There is a vacuum phenomenon beneath the endplate at S1 and the superior endplate is concave downward indicating partial collapse. There is some cortical destruction anteriorly and periosteal reaction is seen along the anterior margin of the S1 vertebral body. Sagittal and coronal reformatted images demonstrate a new irregular radiolucent line along the previously ankylosed fusion of the L5-S1 facet on the right. These are new findings compared with the prior study. The vacuum phenomenon in the L5 S1 disc and beneath the partially collapsed superior endplate of S1 are felt to mitigate against acute infection . However, the lesion is of uncertain etiology and significance. Close interval follow-up is recommended. At L4-5, the disc appears markedly narrowed and may be partially fused. There is a stable grade 1 2-3 mm spondylolisthesis. A left laminectomy defect is seen and there is posterior element fusion. Findings are unchanged. At L3-4 there is central canal stenosis due to diffuse disc bulging and ligamentum flavum hypertrophy along with developmentally short pedicles. This is unchanged. IMPRESSION: There are postsurgical changes extensively noted at L4-5 and L5-S1 with posterior element fusion and left laminectomy defects. The findings at L4-5 are stable. There is central canal stenosis at L3-4 unchanged. A new lesion is seen in the anterior superior aspect of the S1 vertebral body with collapse of the superior endplate and underlying radiolucent bone destruction with periosteal reaction and reactive sclerosis. In addition, there is a new radiolucent cleft suggesting a stress fracture in the previously ankylosed L5-S1 facet and posterior column on the right. These changes may be due to healing acute trauma or repetitive stress fracture phenomena related to altered biomechanics associated with fusion. Osteomyelitis is considered unlikely at L5-S1 given the vacuum phenomenon in the adjacent disc and just beneath the endplate of S1. Close interval followup is suggested however. Electronically Signed by Antolin Uribe MD 06/11/2019 09:58 A
== END ==
LOC: M RAD 17:05
PROVIDERS: ATTEND Family Medicine
DX: M47.816 Spondylosis without myelopathy or radiculopathy, lumbar region (principal); M48.061 Spinal stenosis, lumbar region without neurogenic claudication; M51.26 Other intervertebral disc displacement, lumbar region; Z98.1 Arthrodesis status

== ENCOUNTER → 2019-06-15 | Outpatient (REF) | payer OTHER ==
[2019-06-15 14:14] LABS: BASO # 0.1 10^3/uL (0.0-0.2); BASO % 0.6 % (0.0-1.0); EOS # 0.4 10^3/uL (0.0-0.5); EOS % 4.5 % (0.0-3.0); HEMATOCRIT 44.6 % (42.0-52.0); HEMOGLOBIN 14.2 g/dl (13.5-17.5); LYMPH # 1.5 10^3/uL (1.5-5.0); LYMPH % 16.9 % (24.0-44.0); MEAN CORPUSCULAR HEMOGLOBIN 30.3 pg (27.0-33.0); MEAN CORPUSCULAR HGB CONC 31.8 g/dl (32.0-36.5); MEAN CORPUSCULAR VOLUME 95.3 fl (80.0-96.0); MONO % 11.1 % (0.0-5.0); NEUTROPHILS # 5.9 10^3/uL (1.5-8.5); NEUTROPHILS % 66.4 % (36.0-66.0); PLATELET COUNT, AUTOMATED 222 10^3/uL (150-450); RED BLOOD COUNT 4.68 10^6/uL (4.30-6.10); WHITE BLOOD COUNT 8.8 10^3/uL (4.0-10.0)
[2019-06-15 14:38] LABS: ALBUMIN 3.2 GM/DL (3.2-5.2); BILIRUBIN,TOTAL 0.2 MG/DL (0.2-1.0); C REACTIVE PROTEIN QUANTITATIV 2.78 MG/DL (0.00-0.30); CALCIUM LEVEL 8.9 MG/DL (8.8-10.2); CREATININE FOR GFR 1.34 MG/DL (0.70-1.30); GLOMERULAR FILTRATION RATE 57.3 (>49); POTASSIUM SERUM 4.1 MEQ/L (3.5-5.1); TOTAL PROTEIN 6.9 GM/DL (6.4-8.2)
[2019-06-15 14:59] LABS: ERYTHROCYTE SEDIMENTATION RATE 43 mm/hr (0-20)
== END ==
LOC: M SFHCPLAZ 12:25
PROVIDERS: ATTEND Nurse Practitioner Family
DX: R93.7 Abnormal findings on diagnostic imaging of other parts of musculoskeletal system (principal)

== ENCOUNTER → 2019-06-23 | Outpatient (CLI) | payer OTHER ==
--- NOTE | 2019-07-05 11:37 | ECWPNPC ---
PATIENT NAME: MACKENZIE NÚÑEZ : 1955 GENDER: MALE VISIT DATE: 06/23/2019 DISCHARGE DATE: 06/23/19 1211 VISIT LOCKED DATE TIME: PHYSICIAN: EMMANUEL BARAJAS PHYSICIAN PAGER NO: [phone] RESOURCE: EMMANUEL BARAJAS REASON FOR APPOINTMENT 1. W/C, 4 WEEKS MED CHANGE HISTORY OF PRESENT ILLNESS HISTORY OF PRESENT ILLNESS: PAIN THE PATIENT DESCRIBES THE PAIN... 64-YEAR-OLD MALE IN FOR WORKER'S COMP. CHRONIC PAIN FOLLOW-UP. HE WAS NEWLY DIAGNOSED WITH A COMPRESSION FRACTURE STATUS POST FALL. HE RATES HIS PAIN CURRENTLY AT A 10 OUT OF 10 AND DESCRIBES IT SORE, TENDER, SHARP, STABBING, SHOOTING, AND CONTINUOUS. HE WOULD LIKE TO DISCUSS A CHANGE IN MEDICATION HIS CURRENT DOSE OF OXYCODONE IS NOT HELPING TO ALLEVIATE HIS SYMPTOMS. 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 THE PATIENT SAYS HIS PAIN STARTS IN HIS LOW BACK AND RADIATES DOWN INTO HIS LEGS. THE PATIENT HAS HAD FOUR BACK SURGERIES AND REPORTS HAVING COMPLICATIONS DURING THE MOST RECENT SURGERY BECAUSE THEY WENT IN THROUGH HIS FRONT. THE PATIENT SAYS HE HAS BEEN USING A WHEELCHAIR SINCE THE LAST SURGERY. THE PATIENT IS CURRENTLY USING OXYCODONE NEEDED TO AID IN PAIN RELIEF. FALL RISK SCREENING: SCREENING :NO FALLS REPORTED IN THE LAST YEAR CURRENT MEDICATIONS TAKING PANTOPRAZOLE SODIUM 40 MG TABLET DELAYED RELEASE 1 TABLET ORALLY ONCE A DAY TAKING FERROUS SULFATE 325 (65 FE) MG TABLET 1 TABLET ORALLY ONCE A DAY TAKING ASPIRIN 81 MG TABLET CHEWABLE 1 TABLET ORALLY ONCE A DAY TAKING ROSUVASTATIN CALCIUM 10 MG TABLET 1 TABLET ORALLY ONCE A DAY TAKING GABAPENTIN 600 MG TABLET 1 TABLET ORALLY THREE TIMES DAILY TAKING MIRALAX - PACKET 1 PACKET MIXED WITH 8 OUNCES OF FLUID ORALLY ONCE A DAY TAKING CARVEDILOL 6.25 MG TABLET 1 TAB ORALLY BID TAKING ACETOMINOPHEN-325 MG 325 MG TABLET 1 OR 2 TABS ORALLY EVERY FOUR HOURS PRN TAKING MAY HAVE - - LARGE NON-SKID SOCKS FOR DX=G82.21 (PARAPLEGIA) DAILY TAKING PREVAIL WET WIPES - MISCELLANEOUS DIRECTED FOR DX=G82.21 (PARAPLEGIA) DAILY TAKING LANCETS - MISCELLANEOUS DIRECTED DX: E11.9 TWICE A DAY TAKING GAIT/TRANSFER BELT - MISCELLANEOUS DIRECTED TAKING BLOOD GLUCOSE TEST - STRIP DIRECTED INTRADERMALLY BID DX: E11.9 TAKING MAY USE 1 - BRACE FOR LEFT LOWER EXTREMITY DIRECTED DX:R27.0 DAILY CONTRACTURE OF LOWER JOINT, NOTES: FAX TO [phone] TAKING MULTIVITAMIN & MINERAL TABLET 1 TAB(S) ORALLY DAILY TAKING HYDROCERIN - CREAM DIRECTED EXTERNALLY BID TO LOWER LEGS FROM KNEES DOWN TAKING SILDENAFIL CITRATE 100 MG TABLET 1 TABLET NEEDED ORALLY ONCE A DAY PRN TAKING PAROXETINE HCL 40 MG TABLET 1 TABLET IN THE MORNING ORALLY ONCE A DAY TAKING TIZANIDINE HCL 4 MG TABLET 1 TABLET NEEDED ORALLY TWO TIMES DAILY TAKING LOSARTAN POTASSIUM 25 MG TABLET 1 TABLET ORALLY EVERY MORNING TAKING OXYCODONE HCL 10 MG TABLET 1 TABLET NEEDED ORALLY DAILY PRN SEVERE PAIN MDD=1 TAKING ASPIRIN 81 81 MG TABLET CHEWABLE 1 TABLET ORALLY ONCE A DAY TAKING FLUCONAZOLE 200 MG TABLET 1 CAP ORALLY ONCE A DAY TAKING CERTAVITE/ANTIOXIDANTS - TABLET 1 TABLET ORALLY ONCE A DAY MEDICATION LIST REVIEWED AND RECONCILED WITH THE PATIENT PAST MEDICAL HISTORY CAD, S/P AWMI POST-OP LAMINECTOMY-05/2017 VERY SMALL APICAL THROMBUS, LVEF 40%-AKINESIS OF APEX, MID ANT, MID ANTEROSEPTAL, LV DIASTOLIC DYSFX BY 05/2017 TTE-ANTECOL RST S ISCHEMIA BUT FOCAL/GLOBAL ABNORMALITY, LVEF 28%, HIGH RISK-JORGE/12/2017 CATH-NO SIGNIFICANT CAD-GABY/SP ICD 01/12/2018-GABY/02/19/19 TTE C LVEF 50-55%/NO JOAQUIM DYSFX-ETHAN HYPERLIPIDEMIA, 2B PAD T2DM NID COPD/EMPHYSEMA - FEV1 3.7 IN 2007, LIKELY FROM LONG-TERM HEAVY SMOKING ARON--INTOLERANT OF CPAP ED GERD CHRONIC 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 S/P EMERGENT ABDOMINAL AORTO BI-ILIAC ARTERY BYPASS GRAFT--REQUIRED 17 LITERS SALINE, 25 UNITS PRBC, 336 UNITS PLATELETS, 1 LITER FFP, 6 LITER CELL-SAVER ISCHEMIA LOWER EXTREMITIES WITH COMPARTMENT SYNDROME, REQUIRING BILAT 4 COMPATMENT FASCIOTOMIES SEPTIC SHOCK 2 PERFORATED VISCUS S/P EMERGENT LEFT COLECTOMY (C R COLOSTOMY), OPEN CHOLECYSTECTOMY, LIVER PACKING, ABTHERA REPLACMENT CHOLECYSTITIS, BILE LEAK POST CHOLECYSTECTYOMY LEFT COLECTOMY AND RT PARTIAL COLECTOMY WITH COLOSTOMY BRADYARHYTHMIA WITH CARDIAC ARREST/IWMI INFECTED AORTO BI-ILIAC BYPASS GRAFT C 2 CHRONIC DISSEMINATATED CANDIDIASIS AND S. EPIDERMIDIS BACTEREMIA ENTEROCTANEOUS FISTULAE H/O ACRODERMATITIS ENTEROPTHICA (ZINC-DEFICIENCY DERMATITIS) PROLONGED ICU/MECH VENTILATRION WITH TRACHEOSTOMY, SUBSEQUENT CLOSURE OF TRACH H/O STAGE 4 SACRAL DECUBITUS PSEUDOMONUS OSTEOMYELITIS HIT--HEPARIN INDUCED THROMBOCYTOPENIA H/O RECURRENT GOUT, L PODAGRA LUMBAR DJD- L3/4 MOD CCS, L4/5 MILD C GRADE 1 LITHESIS AND L L4 COMPRESSION IN NF, L5/S1 DIFFUSE BULGE C MINIMAL TS COMPRESSION BY 04/2017 CT LS SPINE RECURRENT UTI ALLERGIES REMERON: NIGHTMARES - SIDE EFFECTS WELLBUTRIN: AGITATION - SIDE EFFECTS ZOLOFT: DIARRHEA - SIDE EFFECTS PROZAC: DEPRESSION - SIDE EFFECTS SURGICAL HISTORY APPENDECTOMY RIH LEFT ELBOW ULNAR NERVE TRANSPOSITION LUMBAR SPINAL FUSION 04/24 COLONOSCOPY--NL 11/17 REMOVAL SCREWS, RODS LUMBAR SPINE, BONE GRAFTING 06/25 EXP LAPAROTOMY, LEFT COLECTOMY, RIGHT COLOSTOMY 2013 ABORTED L4-L5 DISCECTOMY COMPLICATED BY INTRAOPERATIVE ILIAC VEIN AND AORTIC PERFORATION 07/2014 TRACHEOSTOMY 07/2014 CHOLECYSTECTOMY, SECONDARY TO BILE LEAK 07/2014 BILATERAL LOWER EXTREMITY FASCIOTOMIES R/T COMPARTMENT SYNDROME 07/29 DEFIBRILATOR PLACEMENT (R) SIDE 01/08/18 NEW PACEMAKER WIRE 06/05/18 CIRCUMCISION 2 PHIMOSIS/RECURRENT UTI-TASHI 10/01/2018 FAMILY HISTORY FATHER: , LUNG CANCER, DIAGNOSED WITH OTHER MALIGNANT NEOPLASM OF UNSPECIFIED SITE MOTHER: , DIABETES, TYPE II, DIABETES, OTHER SPECIFIED CONDITIONS INFLUENCING HEALTH STATUS SIBLINGS: DIABETES, TYPE II, DIABETES, UNSPECIFIED HEART DISEASE 6 BROTHER(S) , 5 SISTER(S) . MOM WITH COPD, CHF. BROTHER WITH HEART DISEASE, DIABETES. SOCIAL HISTORY GENERAL: TOBACCO USE ARE YOU A:CURRENT SMOKER HOW OFTEN DO YOU SMOKE CIGARETTES?EVERY DAY HOW SOON AFTER YOU WAKE UP DO YOU SMOKE YOUR FIRST CIGARETTE?AFTER 60 MIN HOW MANY CIGARETTES A DAY DO YOU SMOKE?6-10 ARE YOU INTERESTED IN QUITTING?NOT READY TO QUIT PATIENT COUNSELED ON THE DANGERS OF TOBACCO USE AND URGED TO QUIT:06/15/2019 COUNSELED THE PATIENT ON SMOKING EFFECTS, EDUCATION [id number]/09/2018 SMOKING CESSATION INFORMATION GIVEN06/15/2019 EDUCATION LEVEL OF EDUCATION:NOT FINISHED COLLEGE DIET: REGULAR. LANGUAGE LANGUAGES SPOKEN:SAMI DOMESTIC VIOLENCE DO YOU FEEL SAFE IN YOUR ENVIRONMENT?YES BMI CARE GOAL FOLLOW-UP ABOVE NORMAL BMI FOLLOW-UPGIVING ENCOURAGEMENT TO EXERCISE RECREATIONAL DRUG USE DENIES. EXERCISE: WALKING. 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 NEEDED?NO PAIN CLINIC PFS, CLERGY, PUBLIC HEALTH REFERRALS HAS THE PATIENT BEEN EDUCATED REGARDING HIS/HER PLAN OF CARE?YES HAS THE PATIENT BEEN EDUCATED REGARDING PAIN, THE RISK FOR PAIN, THE IMPORTANCE OF EFFECTIVE PAIN MANAGEMENT, AND THE PAIN ASSESSMENT PROCESS?YES LATEX QUESTIONNAIRE LATEX ALLERGY : HAVE YOU EVER DEVELOPED ANY TYPE OF REACTION AFTER HANDLING LATEX PRODUCTS SUCH RUBBER GLOVES, CONDOMS, DIAPHRAGMS, BALLOONS, SOCKS, OR UNDERWEAR?NO LATEX ALLERGY : HAVE YOU EVER DEVELOPED ANY TYPE OF REACTION DURING OR AFTER DENTAL APPOINTMENT, VAGINAL/RECTAL EXAMINATION, SURGICAL PROCEDURE, OR ANY OTHER EXPOSURE?NO DATE ASKED : 11/27/2018 LATEX RISK : HAVE YOU EVER HAD ANY DIFFICULTY BREATHING OR HIVES AFTER EATING OR HANDLING ANY FRUITS, OR VEGETABLES; SUCH KIWI, BANANAS, STONE FRUITS, OR CHESTNUTSNO LATEX RISK : DO YOU HAVE A PREVIOUS PERSONAL HISTORY OF MORE THAN NINE SURGERIES, SPINA BIFIDA, OR REPEATED CATHERIZATIONS? YES - PLEASE INDICATE : > 9 SURGERIES LATEX RISK : ARE YOU FREQUENTLY EXPOSED TO LATEX PRODUCTS IN YOUR OCCUPATION?NO CAFFEINE CAFFEINE USE?YES 2 CUPS PER DAY ADVANCE DIRECTIVE ADVANCE DIRECTIVE DISCUSSED WITH PATIENT:YES POA - MATEO NÚÑEZ (); DECLINED HCP INFORMATION. TAOIST [id number] LATTER DAY MARITAL STATUS: -MATEO. ALCOHOL SCREENING POINTS: 0, INTERPRETATION: NEGATIVE. OCCUPATION: DISABLED 04/22 FROM [email or web address]'S DEPT. REVIEWED WITH PATIENT 09/23/18 1432 JSREVIEWED WITH PATIENT 11/27/18 1034 JSREVIEWED WITH PATIENT 02/26/19 1015 JSREVIEWED WITH PATIENT 05/24/19 1303 NLJREVIEWED WITH PATIENT 06/22/2019 1100 LAS. HOSPITALIZATION/MAJOR DIAGNOSTIC PROCEDURE COMPLICATIONS FOLLOWING ATTEMPTED LS SPINE SURGERY 07/18/14-05/17/15 SBO, UTI, INFLUENZA-RESOLVED C NGT 09/2015 BOWEL OBSTRUCTION DECEMBER/2016 ABORTED L4-5 DISKECTOMY, COMPLIACTED BY INTRAOPERATIVE ILIACVEIN AND AORTIC PERFORATION 07/29 BILAT LOWER EXT FASCIOTOMIES (COMPARTMENT SYNDROME) 07/29 EXP LAPAROTOMY, LEFT COLECTOMY, RIGHT COLOSTOMY 07/29 OPEN CHOLECYTECTOMY, SECONADRY BILE LEAK 07/29 TRACHEOSTOMY 07/29 REMOVAL INFECTED AORTOBIFEMORAL GRAFT, INSERTION OF SECOND ABF GRAFT 08/28 TEMPORARY PACEMAKER 08/28 ERCP, SPHICTEROTOMY, BILARY STENT PLACEMENT 09/29 FIRST OF SEVERAL SACRAL DECUB DEBRIDEMENTS 11/27 EGD--BILIARY STENT REMOVED 11/27 TRACH REMOVAL/CLOSURE 03/29 SMC-ELEVATED INR 7.9 C BLEEDING AT OSTOMY SITE 04/19-05/01 HOSPITALIZED FOR DEFIBRILATOR PLACEMENT 01/08/18-01/20/18 NEW PACEMAKER WIRE 06/04/18 SYNCOPE 2 SB TO 40S, CARVE DECREASED 25 BID TO 6.25 BID 02/18-06/03 REVIEW OF SYSTEMS REVIEWED BY: PROVIDER: JERMAIN JEANP-C . CONSTITUTIONAL: ANY CHANGE IN YOUR MEDICAL CONDITION? NO . CHILLS NO . FEVER NO . INFECTION: DO YOU HAVE NEW INFECTIONS? NO . DO YOU HAVE HISTORY OF MRSA? NO . MUSCULOSKELETAL: ANY NEW PATTERNS OF PAIN OR NUMBNESS? NO . GASTROENTEROLOGY: ANY NEW CHANGE IN BOWEL CONTROL? NO . GENITOURINARY: ANY NEW CHANGE IN BLADDER CONTROL? NO . IS THERE A CHANCE YOU COULD BE ? NO . HEMATOLOGY/LYMPH: DO YOU TAKE ANY BLOOD THINNERS? (FOR EXAMPLE- COUMADIN, PLAVIX, AGGRENOX, PLATEL, PRADAXA, OR XARELTO) NO . WHEN WAS YOUR LAST DOSE? DATE: TIME: . NEUROLOGY: HAVE YOU FALLEN IN THE PAST 12 MONTHS? YES PT REPORTS HIS WALKER CAUGHT ON A RUG AT [employer], AND HE FELL "FACE FIRST", FEELS THIS HAS WORSENED HIS BACK PAIN SINCE THAT TIME. BEING FOLLOWED BY HIS PRIMARY FOR THIS . ANY NEW EXTREMITY NUMBNESS OR WEAKNESS? NO . CARDIOLOGY: DO YOU HAVE A PACEMAKER OR DEFIBRILLATOR? YES . RESPIRATORY: HAVE YOU BEEN SICK IN THE PAST WEEK? NO . FEVER NO . FLU LIKE SYMPTOMS? NO . COUGH NO . INTEGUMENTARY: DO YOU HAVE ANY RASHES OR OPEN SORES? YES HAS OPEN WOUNDS, FOLLOWED BY DR RAZO FOR THIS . ALLERGIC/IMMUNO: ARE YOU ALLERGIC TO IV DYE? NO . ANY NEW ALLERGIES? NO . PSYCHIATRIC: DO YOU HAVE THOUGHTS OF HURTING YOURSELF OR SOMEONE ELSE? NO . ARE YOU ABUSED, NEGLECTED, OR IN AN UNSAFE ENVIRONMENT? NO . ENDOCRINOLOGY: ARE YOU DIABETIC? NO . OTHER: DO YOU NEED ANY PRESCRIPTIONS? YES . IF YES, PLEASE LIST: ____OXYCODONE . ANY NEW PROBLEMS WITH YOUR MEDICATIONS? NO . WHEN DID YOU LAST EAT? ____ . WHEN DID YOU LAST DRINK? ____ . WHAT DID YOU LAST DRINK? ____ . NAME OF PERSON DRIVING YOU HOME? ____ . DO YOU HAVE ANY OTHER QUESTIONS OR CONCERNS NO . VITAL SIGNS WT 193.0 LBS, HT 69 IN, BMI 28.50 INDEX, BP 168/79 MM HG, HR 61 /MIN, RR 18 /MIN, TEMP 96.7 F, OXYGEN SAT % 95%, NA INITIALS AW 1122, REVIEWED BY: RUIZ. EXAMINATION GENERAL EXAMINATION: GENERALNO ACUTE DISTRESS, WELL NOURISHED AND HYDRATED. PSYCHAPPROPRIATE MOOD AND AFFECT . LUNGS:CLEAR TO AUSCULTATION BILATERALLY, NO WHEEZES, RHONCHI, RALES. HEART:NO MURMURS, REGULAR RATE AND RHYTHM. 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 PATIENT HAS BEEN ON OXYCODONE 10 MG 1 TABLET DAILY AND FEELS THIS NO LONGER HELPS DIMINISH HIS PAIN. DISCUSSED SHORT-ACTING VERSUS LONG-ACTING MEDICATIONS WITH PATIENT AND RECOMMENDED XTAMPZA 9 MG TWICE A DAY NEEDED FOR PAIN. FURTHER RECOMMENDED FOLLOW-UP IN ONE MONTH TO DETERMINE EFFICACY OF TREATMENT. PATIENT EXPRESSED UNDERSTANDING OF AND WAS IN AGREEMENT WITH TREATMENT PLAN. GIVEN TIME TO ASK QUESTIONS AND EXPRESS CONCERNS., ISTOP REGISTRY REVIEWED AND DEMONSTRATES COMPLLIANCE. (REF # [id number] ) BRINGS IN MEDICATIONS WHICH IS APPROPRIATE FOR WHAT WAS DISPENSED. RECENT URINE TOXICOLOGY REVIEWED. NO UNAUTHORIZED MEDICATIONS. NO ILLICIT SUBSTANCES AND PRESCRIBED MEDICATIONS WERE PRESENT. PROCEDURES PN WORKMANS' COMP OPINION IN YOUR OPINION, WAS THE INCIDENT THAT THE PATIENT DESCRIBED THE COMPETENT MEDICAL CAUSE OF THIS INJURY/ILLNESS? YES ARE THE PATIENT'S COMPLAINTS CONSISTENT WITH HIS/HER HISTORY OF THE INJURY/ILLNESS? YES IS THE PATIENT'S HISTORY OF THE INJURY/ILLNESS CONSISTENT WITH YOUR OBJECTIVE FINDING? YES WHAT IS THE PERCENTAGE OF TEMPORARY IMPAIRMENT? TOTAL = 100% IS THE PATIENT WORKING? NO DOCTOR ON SITE: LUX CARPIO MD PREVENTIVE MEDICINE PAIN CLINIC TEACHING: MEDICATIONS XTAMPZA INFORMATIONAL HANDOUT PRINTED AND REVIEWED WITH PATIENT, PATIENT VERBALIZES UNDERSTANDING. 06/23/2019 LAS. PROCEDURE CODES FA211 ESTABILISHED PATIENT [facility] FACILITY CHARGE DISPOSITION & COMMUNICATION FOLLOW UP 4 WEEKS (REASON: MEDICATION CHANGE ) ELECTRONICALLY SIGNED BY KAELA JUNIOR ON 06/24/2019 AT 09:02 AM EDT DISCLAIMER : THIS IS A VISIT SUMMARY EXTRACTED FROM THE [employer] CHART. IT IS NOT A COPY OF THE [employer] PROGRESS NOTE. MARIAELENA
== END ==
LOC: M PAIN 10:30
PROVIDERS: ATTEND Family Medicine
DX: M96.1 Postlaminectomy syndrome, not elsewhere classified (principal); E78.5 Hyperlipidemia, unspecified; E11.9 Type 2 diabetes mellitus without complications; J44.9 Chronic obstructive pulmonary disease, unspecified; G47.33 Obstructive sleep apnea (adult) (pediatric); K21.9 Gastro-esophageal reflux disease without esophagitis; F17.210 Nicotine dependence, cigarettes, uncomplicated; Z88.8 Allergy status to other drugs, medicaments and biological substances; Z95.0 Presence of cardiac pacemaker; Z79.82 Long term (current) use of aspirin; Z79.899 Other long term (current) drug therapy

== ENCOUNTER → 2019-08-02 | Outpatient (REF) | payer OTHER ==
[2019-08-02 15:37] LABS: CALCIUM LEVEL 9.3 MG/DL (8.8-10.2); CREATININE FOR GFR 1.37 MG/DL (0.70-1.30); GLOMERULAR FILTRATION RATE 55.9 (>49); POTASSIUM SERUM 4.1 MEQ/L (3.5-5.1)
== END ==
LOC: M SFHCPLAZ 13:49
PROVIDERS: ATTEND Nurse Practitioner Family
DX: R19.8 Other specified symptoms and signs involving the digestive system and abdomen (principal)

== ENCOUNTER → 2019-08-04 | Outpatient (CLI) | payer OTHER ==
--- NOTE | 2019-08-06 01:17 | ECWPNPC ---
PATIENT NAME: MACKENZIE NÚÑEZ : 1955 GENDER: MALE VISIT DATE: 08/04/2019 DISCHARGE DATE: 08/04/19 1230 VISIT LOCKED DATE TIME: PHYSICIAN: EMMANUEL BARAJAS PHYSICIAN PAGER NO: [phone] RESOURCE: EMMANUEL BARAJAS REASON FOR APPOINTMENT 1. W/C, 4 WEEKS MED CHANGE HISTORY OF PRESENT ILLNESS HISTORY OF PRESENT ILLNESS: PAIN THE PATIENT DESCRIBES THE PAIN... THE PATIENT DESCRIBES THE PAIN... 64-YEAR-OLD MALE IN FOR WORKER'S COMP. CHRONIC PAIN FOLLOW-UP. HE WAS NEWLY DIAGNOSED WITH A COMPRESSION FRACTURE STATUS POST FALL. HE RATES HIS PAIN CURRENTLY AT A 8 OUT OF 10 AND DESCRIBES IT SORE, TENDER, SHARP, SHOOTING, AND CONTINUOUS. THE PATIENT WAS HURT IN A WORK RELATED INJURY ON 04/15/2008 WHILE [facility]ING [facility] [employer] WHEN HE SLIPPED ON A WET FLOOR AND FELL CAUSING HIM TO INJURE HIS BACK. THE PATIENT SAYS HIS PAIN STARTS IN HIS LOW BACK AND RADIATES DOWN INTO HIS LEGS. THE PATIENT HAS HAD FOUR BACK SURGERIES AND REPORTS HAVING COMPLICATIONS DURING THE MOST RECENT SURGERY BECAUSE THEY WENT IN THROUGH HIS FRONT. THE PATIENT SAYS HE HAS BEEN USING A WHEELCHAIR SINCE THE LAST SURGERY. THE PATIENT IS CURRENTLY USING OXYCODONE NEEDED TO AID IN PAIN RELIEF. AT LAST CLINIC VISIT PATIENT WAS STARTED ON XTAMPZA AND HE CALLED PRIOR TO HIS APPOINTMENT TO STATE THAT THE MEDICATION WAS INEFFECTIVE FOR HIM SUCH SHE WAS STARTED BACK ON THE OXYCODONE AND HE FEELS MEDICATION HAS BEEN HELPFUL AND MED BEEN SIDE EFFECTS THIS TIME. FALL RISK SCREENING: SCREENING :NO FALLS REPORTED IN THE LAST YEAR CURRENT MEDICATIONS TAKING PANTOPRAZOLE SODIUM 40 MG TABLET DELAYED RELEASE 1 TABLET ORALLY ONCE A DAY TAKING ASPIRIN 81 MG TABLET CHEWABLE 1 TABLET ORALLY ONCE A DAY TAKING CARVEDILOL 6.25 MG TABLET 1 TAB ORALLY BID TAKING ACETOMINOPHEN-325 MG 325 MG TABLET 1 OR 2 TABS ORALLY EVERY FOUR HOURS PRN TAKING MAY HAVE - - LARGE NON-SKID SOCKS FOR DX=G82.21 (PARAPLEGIA) DAILY TAKING PREVAIL WET WIPES - MISCELLANEOUS DIRECTED FOR DX=G82.21 (PARAPLEGIA) DAILY TAKING LANCETS - MISCELLANEOUS DIRECTED DX: E11.9 TWICE A DAY TAKING GAIT/TRANSFER BELT - MISCELLANEOUS DIRECTED TAKING MAY USE 1 - BRACE FOR LEFT LOWER EXTREMITY DIRECTED DX:R27.0 DAILY CONTRACTURE OF LOWER JOINT, NOTES: FAX TO [phone] TAKING MULTIVITAMIN & MINERAL TABLET 1 TAB(S) ORALLY DAILY TAKING PAROXETINE HCL 40 MG TABLET 1 TABLET IN THE MORNING ORALLY ONCE A DAY TAKING LOSARTAN POTASSIUM 50 MG TABLET 1 TABLET ORALLY EVERY MORNING TAKING FLUCONAZOLE 200 MG TABLET 1 CAP ORALLY ONCE A DAY TAKING CERTAVITE/ANTIOXIDANTS - TABLET 1 TABLET ORALLY ONCE A DAY TAKING GABAPENTIN 600 MG TABLET 1 TABLET ORALLY THREE TIMES DAILY TAKING BLOOD GLUCOSE TEST - STRIP DIRECTED INTRADERMALLY BID DX: E11.9 TAKING FERROUS SULFATE 325 (65 FE) MG TABLET 1 TABLET ORALLY ONCE A DAY TAKING HYDROCERIN - CREAM DIRECTED EXTERNALLY BID TO LOWER LEGS FROM KNEES DOWN TAKING ROSUVASTATIN CALCIUM 10 MG TABLET 1 TABLET ORALLY ONCE A DAY TAKING OXYCODONE HCL 10 MG TABLET 1 TABLET NEEDED ORALLY DAILY PRN SEVERE PAIN MDD=1 TAKING LEVAQUIN 500 MG TABLET 1 TABLET ORALLY ONCE A DAY MEDICATION LIST REVIEWED AND RECONCILED WITH THE PATIENT PAST MEDICAL HISTORY CAD, S/P AWMI POST-OP LAMINECTOMY-05/2017 VERY SMALL APICAL THROMBUS, LVEF 40%-AKINESIS OF APEX, MID ANT, MID ANTEROSEPTAL, LV DIASTOLIC DYSFX BY 05/2017 TTE-ANTECOL/07/2017 RST S ISCHEMIA BUT FOCAL/GLOBAL ABNORMALITY, LVEF 28%, HIGH RISK-JORGE/12/2017 CATH-NO SIGNIFICANT CAD-GABY/SP ICD 01/12/2018-GABY/02/19/19 TTE C LVEF 50-55%/NO JOAQUIM DYSFX-ETHAN HYPERLIPIDEMIA, 2B PAD T2DM NID COPD/EMPHYSEMA - FEV1 3.7 IN 2007, LIKELY FROM LONG-TERM HEAVY SMOKING ARON--INTOLERANT OF CPAP ED GERD CHRONIC 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 S/P EMERGENT ABDOMINAL AORTO BI-ILIAC ARTERY BYPASS GRAFT--REQUIRED 17 LITERS SALINE, 25 UNITS PRBC, 336 UNITS PLATELETS, 1 LITER FFP, 6 LITER CELL-SAVER ISCHEMIA LOWER EXTREMITIES WITH COMPARTMENT SYNDROME, REQUIRING BILAT 4 COMPATMENT FASCIOTOMIES SEPTIC SHOCK 2 PERFORATED VISCUS S/P EMERGENT LEFT COLECTOMY (C R COLOSTOMY), OPEN CHOLECYSTECTOMY, LIVER PACKING, ABTHERA REPLACMENT CHOLECYSTITIS, BILE LEAK POST CHOLECYSTECTYOMY LEFT COLECTOMY AND RT PARTIAL COLECTOMY WITH COLOSTOMY BRADYARHYTHMIA WITH CARDIAC ARREST/IWMI INFECTED AORTO BI-ILIAC BYPASS GRAFT C 2 CHRONIC DISSEMINATATED CANDIDIASIS AND S. EPIDERMIDIS BACTEREMIA ENTEROCTANEOUS FISTULAE H/O ACRODERMATITIS ENTEROPTHICA (ZINC-DEFICIENCY DERMATITIS) [facility] TRACHEOSTOMY, SUBSEQUENT CLOSURE OF TRACH H/O STAGE 4 SACRAL DECUBITUS PSEUDOMONUS OSTEOMYELITIS HIT--HEPARIN INDUCED THROMBOCYTOPENIA H/O RECURRENT GOUT, L PODAGRA LUMBAR DJD- L3/4 MOD CCS, L4/5 MILD C GRADE 1 LITHESIS AND L L4 COMPRESSION IN NF, L5/S1 DIFFUSE BULGE C MINIMAL TS COMPRESSION BY 04/2017 CT LS SPINE RECURRENT UTI ALLERGIES REMERON: NIGHTMARES - SIDE EFFECTS WELLBUTRIN: AGITATION - SIDE EFFECTS ZOLOFT: DIARRHEA - SIDE EFFECTS PROZAC: DEPRESSION - SIDE EFFECTS SURGICAL HISTORY APPENDECTOMY RI LEFT ELBOW ULNAR NERVE TRANSPOSITION LUMBAR SPINAL FUSION 04/24 COLONOSCOPY--NL 11/17 REMOVAL SCREWS, RODS LUMBAR SPINE, BONE GRAFTING 06/25 EXP LAPAROTOMY, LEFT COLECTOMY, RIGHT COLOSTOMY 2013 ABORTED L4-L5 DISCECTOMY COMPLICATED BY INTRAOPERATIVE ILIAC VEIN AND AORTIC PERFORATION 07/2014 TRACHEOSTOMY 07/2014 CHOLECYSTECTOMY, SECONDARY TO BILE LEAK 07/2014 BILATERAL LOWER EXTREMITY FASCIOTOMIES R/T COMPARTMENT SYNDROME 07/29 DEFIBRILATOR PLACEMENT (R) SIDE 01/08/18 NEW PACEMAKER WIRE 06/05/18 CIRCUMCISION 2 PHIMOSIS/RECURRENT UTI-TASHI 10/01/2018 FAMILY HISTORY FATHER: , LUNG CANCER, DIAGNOSED WITH OTHER MALIGNANT NEOPLASM OF UNSPECIFIED SITE MOTHER: , DIABETES, TYPE II, DIABETES, OTHER SPECIFIED CONDITIONS INFLUENCING HEALTH STATUS SIBLINGS: DIABETES, TYPE II, DIABETES, UNSPECIFIED HEART DISEASE 6 BROTHER(S) , 5 SISTER(S) . MOM WITH COPD, CHF. BROTHER WITH HEART DISEASE, DIABETES. SOCIAL HISTORY GENERAL: TOBACCO USE ARE YOU A:CURRENT SMOKER ARE YOU INTERESTED IN QUITTING?NOT READY TO QUIT COUNSELED THE PATIENT ON SMOKING EFFECTS, EDUCATION RPQHSOBA15/01/2019 HOW MANY CIGARETTES A DAY DO YOU SMOKE?6-10 HOW SOON AFTER YOU WAKE UP DO YOU SMOKE YOUR FIRST CIGARETTE?AFTER 60 MIN HOW OFTEN DO YOU SMOKE CIGARETTES?EVERY DAY PATIENT COUNSELED ON THE DANGERS OF TOBACCO USE AND URGED TO QUIT:06/15/2019 SMOKING CESSATION INFORMATION GIVEN08/04/2019 EDUCATION LEVEL OF EDUCATION:NOT FINISHED COLLEGE DIET: REGULAR. LANGUAGE LANGUAGES SPOKEN:[place] OF [place] DOMESTIC VIOLENCE DO YOU FEEL SAFE IN YOUR ENVIRONMENT?YES BMI CARE GOAL FOLLOW-UP ABOVE NORMAL BMI FOLLOW-UPGIVING ENCOURAGEMENT TO EXERCISE RECREATIONAL DRUG USE DENIES. EXERCISE: WALKING. 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, WHEELCHAIR DENTIST PRIVATE PRACTICE NEEDED?NO PAIN CLINIC PFS, CLERGY, PUBLIC HEALTH REFERRALS HAS THE PATIENT BEEN EDUCATED REGARDING HIS/HER PLAN OF CARE?YES HAS THE PATIENT BEEN EDUCATED REGARDING PAIN, THE RISK FOR PAIN, THE IMPORTANCE OF EFFECTIVE PAIN MANAGEMENT, AND THE PAIN ASSESSMENT PROCESS?YES LATEX QUESTIONNAIRE LATEX ALLERGY : HAVE YOU EVER DEVELOPED ANY TYPE OF REACTION AFTER HANDLING LATEX PRODUCTS SUCH RUBBER GLOVES, CONDOMS, DIAPHRAGMS, BALLOONS, SOCKS, OR UNDERWEAR?NO LATEX ALLERGY : HAVE YOU EVER DEVELOPED ANY TYPE OF REACTION DURING OR AFTER DENTAL APPOINTMENT, VAGINAL/RECTAL EXAMINATION, SURGICAL PROCEDURE, OR ANY OTHER EXPOSURE?NO DATE ASKED : 11/27/2018 LATEX RISK : HAVE YOU EVER HAD ANY DIFFICULTY BREATHING OR HIVES AFTER EATING OR HANDLING ANY FRUITS, OR VEGETABLES; SUCH KIWI, BANANAS, STONE FRUITS, OR CHESTNUTSNO LATEX RISK : DO YOU HAVE A PREVIOUS PERSONAL HISTORY OF MORE THAN NINE SURGERIES, SPINA BIFIDA, OR REPEATED CATHERIZATIONS? YES - PLEASE INDICATE : > 9 SURGERIES LATEX RISK : ARE YOU FREQUENTLY EXPOSED TO LATEX PRODUCTS IN YOUR OCCUPATION?NO CAFFEINE CAFFEINE USE?YES 2 CUPS PER DAY ADVANCE DIRECTIVE ADVANCE DIRECTIVE DISCUSSED WITH PATIENT:YES POA - MATEO NÚÑEZ (); DECLINED HCP INFORMATION. [id number] MORMONISM MARITAL STATUS: -MATEO. ALCOHOL SCREENING POINTS: 0, INTERPRETATION: NEGATIVE. OCCUPATION: DISABLED 04/22 FROM [employer]S DEPT. REVIEWED WITH PATIENT 09/23/18 1432 JSREVIEWED WITH PATIENT 11/27/18 1034 JSREVIEWED WITH PATIENT 02/26/19 1015 JSREVIEWED WITH PATIENT 05/24/19 1303 NLJREVIEWED WITH PATIENT 06/22/2019 1100 LASREVIEWED WITH PATIENT 08/04/19 1200 NLJ. HOSPITALIZATION/MAJOR DIAGNOSTIC PROCEDURE COMPLICATIONS FOLLOWING ATTEMPTED LS SPINE SURGERY 07/18/14-05/17/15 SBO, UTI, INFLUENZA-RESOLVED C NGT 09/2015 BOWEL OBSTRUCTION DECEMBER/2016 ABORTED L4-5 DISKECTOMY, COMPLIACTED BY INTRAOPERATIVE ILIACVEIN AND AORTIC PERFORATION 07/29 BILAT LOWER EXT FASCIOTOMIES (COMPARTMENT SYNDROME) 07/29 EXP LAPAROTOMY, LEFT COLECTOMY, RIGHT COLOSTOMY 07/29 OPEN CHOLECYTECTOMY, SECONADRY BILE LEAK 07/29 TRACHEOSTOMY 07/29 REMOVAL INFECTED AORTOBIFEMORAL GRAFT, INSERTION OF SECOND ABF GRAFT 08/28 TEMPORARY PACEMAKER 08/28 ERCP, SPHICTEROTOMY, BILARY STENT PLACEMENT 09/29 FIRST OF SEVERAL SACRAL DECUB DEBRIDEMENTS 11/27 EGD--BILIARY STENT REMOVED 11/27 TRACH REMOVAL/CLOSURE 03/29 SMC-ELEVATED INR 7.9 C BLEEDING AT OSTOMY SITE 04/19-05/01 HOSPITALIZED FOR DEFIBRILATOR PLACEMENT 01/08/18-01/20/18 NEW PACEMAKER WIRE 06/04/18 SYNCOPE 2 SB TO 40S, CARVE DECREASED 25 BID TO 6.25 BID 02/18-06/03 REVIEW OF SYSTEMS REVIEWED BY: PROVIDER: JERMAIN SHERWOOD-Amber . CONSTITUTIONAL: ANY CHANGE IN YOUR MEDICAL CONDITION? NO . CHILLS NO . FEVER NO . INFECTION: DO YOU HAVE NEW INFECTIONS? NO . DO YOU HAVE HISTORY OF MRSA? NO . MUSCULOSKELETAL: ANY NEW PATTERNS OF PAIN OR NUMBNESS? YES- RIGHT CALF TO FOOT AND TOES HAVE BEEN EXTREMELY PAINFUL . GASTROENTEROLOGY: ANY NEW CHANGE IN BOWEL CONTROL? NO . GENITOURINARY: ANY NEW CHANGE IN BLADDER CONTROL? NO . IS THERE A CHANCE YOU COULD BE ? NO . HEMATOLOGY/LYMPH: DO YOU TAKE ANY BLOOD THINNERS? (FOR EXAMPLE- COUMADIN, PLAVIX, AGGRENOX, PLATEL, PRADAXA, OR XARELTO) NO . WHEN WAS YOUR LAST DOSE? DATE: TIME: . NEUROLOGY: HAVE YOU FALLEN IN THE PAST 12 MONTHS? NO . ANY NEW EXTREMITY NUMBNESS OR WEAKNESS? NO . CARDIOLOGY: DO YOU HAVE A PACEMAKER OR DEFIBRILLATOR? YES- AICD . RESPIRATORY: HAVE YOU BEEN SICK IN THE PAST WEEK? YES- HAS HAD A COUGH FOR A WEEK, TAKING LEVAQUIN X 7 DAYS . FEVER NO . FLU LIKE SYMPTOMS? NO . COUGH NO . INTEGUMENTARY: DO YOU HAVE ANY RASHES OR OPEN SORES? YES- TAILBONE- GOES TO WOUND CARE CLINIC . ALLERGIC/IMMUNO: ARE YOU ALLERGIC TO IV DYE? NO . ANY NEW ALLERGIES? NO . PSYCHIATRIC: DO YOU HAVE THOUGHTS OF HURTING YOURSELF OR SOMEONE ELSE? NO . ARE YOU ABUSED, NEGLECTED, OR IN AN UNSAFE ENVIRONMENT? NO . ENDOCRINOLOGY: ARE YOU DIABETIC? NO . OTHER: DO YOU NEED ANY PRESCRIPTIONS? NO . IF YES, PLEASE LIST: ____ . ANY NEW PROBLEMS WITH YOUR MEDICATIONS? NO . WHEN DID YOU LAST EAT? ____ . WHEN DID YOU LAST DRINK? ____ . WHAT DID YOU LAST DRINK? ____ . NAME OF PERSON DRIVING YOU HOME? ____ . DO YOU HAVE ANY OTHER QUESTIONS OR CONCERNS NO . VITAL SIGNS WT 192.4 LBS, HT 69 IN, BMI 28.41 INDEX, BP 169/81 MM HG, HR 67 /MIN, RR 18 /MIN, TEMP 96.9 F, OXYGEN SAT % 97%, SAFE IN ENV? (Y/N) YES, REVIEWED BY: DARON. EXAMINATION GENERAL EXAMINATION: GENERALNO ACUTE DISTRESS, WELL NOURISHED AND HYDRATED. PSYCHAPPROPRIATE MOOD AND AFFECT . LUNGS:LUNG SOUNDS DECREASED BILATERALLY. HEART:NO MURMURS, REGULAR RATE AND RHYTHM. ASSESSMENTS INTERVERTEBRAL DISC DISORDER WITH RADICULOPATHY OF LUMBAR REGION - M51.16 (PRIMARY) TREATMENT INTERVERTEBRAL DISC DISORDER WITH RADICULOPATHY OF LUMBAR REGION CLINICAL NOTES: 64-YEAR-OLD MALE IN FOR [employer] COMP. CHRONIC PAIN FOLLOW-UP. GIVEN PRESENTING SYMPTOMS AND RESULTS PHYSICAL EXAMINATION RECOMMENDED CONTINUATION OF CURRENT MEDICATION REGIMEN WITH FOLLOW-UP IN 2 MONTHS. ENCOURAGED PATIENT TO DISCUSS FOOT PAIN WITH HIS PCP. PATIENT HAS EXPRESSED UNDERSTANDING OF AND WAS IN AGREEMENT WITH TREATMENT PLAN. GIVEN TIME TO ASK QUESTIONS AND EXPRESS CONCERNS., ISTOP REGISTRY REVIEWED AND DEMONSTRATES COMPLLIANCE. (REF # [id number] ) BRINGS IN MEDICATIONS WHICH IS APPROPRIATE FOR WHAT WAS DISPENSED. RECENT URINE TOXICOLOGY REVIEWED. NO UNAUTHORIZED MEDICATIONS. NO ILLICIT SUBSTANCES AND PRESCRIBED MEDICATIONS WERE PRESENT. PROCEDURES PN [employer] COMP OPINION IN YOUR OPINION, WAS THE INCIDENT THAT THE PATIENT DESCRIBED THE COMPETENT MEDICAL CAUSE OF THIS INJURY/ILLNESS? YES ARE THE PATIENT'S COMPLAINTS CONSISTENT WITH HIS/HER HISTORY OF THE INJURY/ILLNESS? YES IS THE PATIENT'S HISTORY OF THE INJURY/ILLNESS CONSISTENT WITH YOUR OBJECTIVE FINDING? YES WHAT IS THE PERCENTAGE OF TEMPORARY IMPAIRMENT? TOTAL = 100% IS THE PATIENT WORKING? NO DOCTOR ON SITE: LUX CARPIO MD PROCEDURE CODES FA211 ESTABILISHED PATIENT [facility] FACILITY CHARGE DISPOSITION & COMMUNICATION FOLLOW UP 2 MONTHS (REASON: WORKER'S COMP. LOW BACK PAIN WITH RADICULOPATHY) ELECTRONICALLY SIGNED BY KAELA JUNIOR ON 08/05/2019 AT 01:11 PM EST DISCLAIMER : THIS IS A VISIT SUMMARY EXTRACTED FROM THE [employer] CHART. IT IS NOT A COPY OF THE [employer] PROGRESS NOTE. MARIAELENA
== END ==
LOC: M PAIN 11:30
PROVIDERS: ATTEND Family Medicine
DX: M51.16 Intervertebral disc disorders with radiculopathy, lumbar region (principal); G89.29 Other chronic pain; E78.5 Hyperlipidemia, unspecified; E11.9 Type 2 diabetes mellitus without complications; J44.9 Chronic obstructive pulmonary disease, unspecified; G47.33 Obstructive sleep apnea (adult) (pediatric); K21.9 Gastro-esophageal reflux disease without esophagitis; F17.210 Nicotine dependence, cigarettes, uncomplicated; Z88.8 Allergy status to other drugs, medicaments and biological substances; Z96.89 Presence of other specified functional implants; Z79.82 Long term (current) use of aspirin; Z79.899 Other long term (current) drug therapy

== ENCOUNTER → 2019-08-11 | Outpatient (CLI) | payer OTHER ==
[~2019-08-11] MED LIST changes: +GASTROGRAFIN SOLUTION 30ML (Q9963) As Ordered ONE; +ISOVUE-370 76% 100ML VIAL (Q9967) As Ordered ONE
--- NOTE | 2019-08-11 16:39 | REP ---
Clinical: Rectal discharge. Technique: Axial contrast enhanced images of the pelvis using oral (per protocol) and 100 ml Isovue 370 intravenous contrast material with coronal and sagittal re-formations. Comparison: 08/17/2018. Findings: There is evidence for prior enteric surgical intervention including presumed near complete colonic resection with a right-sided colostomy noted. Visualized portions of the small and large bowel are without obstruction. There is postsurgical changes and granulation tissue noted along the anterior midline abdominopelvic wall with tethering of multiple loops of small bowel without obvious obstruction and without discrete fluid collection or abscess identified. Residual Percy's pouch is noted in the pelvis. The above mentioned findings are essentially stable as compared to prior examination. No evidence for ascites, abscess, perirectal fluid or obvious acute pelvic abnormality otherwise noted. Right kidney demonstrates stable simple cysts. The left kidney appears atrophic but demonstrates residual function with symmetric renal parenchymal enhancement. The infrarenal aorta appears to be surgically absent and there is a patent right sided axillofemoral bypass graft identified. The bladder is under distended and mild bladder wall thickening cannot be excluded which may warrant correlation with urinalysis. The osseous structures demonstrate degenerative changes. Impression: 1. Postsurgical changes involving the enteric system remain essentially stable as compared to 08/17/2018. 2. Further chronic stable changes as above. 3. No ascites. No free air. No focal inflammatory stranding. No adenopathy. Electronically Signed by Adithya Zuniga MD 08/11/2019 04:31 P
== END ==
LOC: M RAD 14:14
PROVIDERS: ATTEND Nurse Practitioner Family
DX: N28.1 Cyst of kidney, acquired (principal); R19.8 Other specified symptoms and signs involving the digestive system and abdomen; R10.31 Right lower quadrant pain; Z93.3 Colostomy status
CPT/HCPCS: 72193; Q9963; Q9967

== ENCOUNTER → 2019-09-20 | Outpatient (CLI) | payer OTHER ==
[~2019-09-20] MED LIST changes: -GASTROGRAFIN SOLUTION 30ML (Q9963) As Ordered ONE; -ISOVUE-370 76% 100ML VIAL (Q9967) As Ordered ONE
--- NOTE | 2019-09-20 20:31 | REPPI ---
Clinical: Arthralgia. Technique: Internal rotation, external rotation, and Y view of the right shoulder. Findings: Very minimal cortical irregularity at the acromioclavicular joint noted. Remainder of the examination is normal for age. Subacromial space is normal. No acute fracture dislocation. No abnormal calcifications or loose bodies. Impression: Essentially age-appropriate examination. As above. Electronically Signed by Adithya Zuniga MD 09/20/2019 08:23 P
== END ==
LOC: M PLAIMG 14:06
PROVIDERS: ATTEND Physician Assistant Medical
DX: M25.511 Pain in right shoulder (principal)

== ENCOUNTER → 2019-10-04 | Outpatient (CLI) | payer OTHER ==
--- NOTE | 2019-10-06 05:03 | ECWPNPC ---
PATIENT NAME: MACKENZIE NÚÑEZ : 1955 GENDER: MALE VISIT DATE: 10/04/2019 DISCHARGE DATE: 10/04/19 1402 VISIT LOCKED DATE TIME: PHYSICIAN: EMMANUEL BARAJAS PHYSICIAN PAGER NO: [phone] RESOURCE: EMMANUEL BARAJAS REASON FOR APPOINTMENT 1. W/C LOW BACK HISTORY OF PRESENT ILLNESS HISTORY OF PRESENT ILLNESS: PAIN THE PATIENT DESCRIBES THE PAIN... 64-YEAR-OLD MALE IN FOR WORKER'S COMP. CHRONIC PAIN FOLLOW-UP. HE RATES HIS PAIN CURRENTLY AT A 9 OUT OF 10 AND DESCRIBES IT ACHING, BURNING, SHARP, AND STABBING. 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 THE PATIENT SAYS HIS PAIN STARTS IN HIS LOW BACK AND RADIATES DOWN INTO HIS LEGS. THE PATIENT HAS HAD FOUR BACK SURGERIES AND REPORTS HAVING COMPLICATIONS DURING THE MOST RECENT SURGERY BECAUSE THEY WENT IN THROUGH HIS FRONT. THE PATIENT SAYS HE HAS BEEN USING A WHEELCHAIR SINCE THE LAST SURGERY. THE PATIENT IS CURRENTLY USING OXYCODONE NEEDED TO AID IN PAIN RELIEF HE FEELS THIS MEDICATION IS WORKING WELL AND DENIES MED SIDE EFFECTS AT THIS TIME. FALL RISK SCREENING: SCREENING :NO FALLS REPORTED IN THE LAST YEAR CURRENT MEDICATIONS TAKING ASPIRIN 81 MG TABLET CHEWABLE 1 TABLET ORALLY ONCE A DAY TAKING CARVEDILOL 6.25 MG TABLET 1 TAB ORALLY BID TAKING MAY HAVE - - LARGE NON-SKID SOCKS FOR DX=G82.21 (PARAPLEGIA) DAILY TAKING PREVAIL WET WIPES - MISCELLANEOUS DIRECTED FOR DX=G82.21 (PARAPLEGIA) DAILY TAKING LANCETS - MISCELLANEOUS DIRECTED DX: E11.9 TWICE A DAY TAKING GAIT/TRANSFER BELT - MISCELLANEOUS DIRECTED TAKING MAY USE 1 - BRACE FOR LEFT LOWER EXTREMITY DIRECTED DX:R27.0 DAILY CONTRACTURE OF LOWER JOINT, NOTES: FAX TO [phone] TAKING MULTIVITAMIN & MINERAL TABLET 1 TAB(S) ORALLY DAILY TAKING PAROXETINE HCL 40 MG TABLET 1 TABLET IN THE MORNING ORALLY ONCE A DAY TAKING LOSARTAN POTASSIUM 50 MG TABLET 1 TABLET ORALLY EVERY MORNING TAKING CERTAVITE/ANTIOXIDANTS - TABLET 1 TABLET ORALLY ONCE A DAY TAKING FERROUS SULFATE 325 (65 FE) MG TABLET 1 TABLET ORALLY ONCE A DAY TAKING HYDROCERIN - CREAM DIRECTED EXTERNALLY BID TO LOWER LEGS FROM KNEES DOWN TAKING ROSUVASTATIN CALCIUM 10 MG TABLET 1 TABLET ORALLY ONCE A DAY TAKING FLUCONAZOLE 100 MG TABLET 1 TABLET ORALLY ONCE A DAY TAKING AMLODIPINE BESYLATE 5 MG TABLET TAKE ONE TABLET BY MOUTH EVERY DAY ORAL TAKING IODOSORB 0.9 % GEL APPLY TO RIGHT GREAT TOE EXTERNALLY 2-3X/WEEK X 4 WEEKS TAKING ACETOMINOPHEN-325 MG 325 MG TABLET 1 OR 2 TABS ORALLY EVERY FOUR HOURS PRN TAKING GABAPENTIN 600 MG TABLET 1 TABLET ORALLY THREE TIMES DAILY TAKING SKELAXIN 800 MG TABLET 1 TABLET ORALLY THREE TIMES A DAY TAKING VOLTAREN 1 % GEL 4 GM TRANSDERMAL EVERY 4-HOURS NEEDED TAKING PANTOPRAZOLE SODIUM 40 MG TABLET DELAYED RELEASE 1 TABLET ORALLY ONCE A DAY TAKING OXYCODONE HCL 10 MG TABLET 1 TABLET NEEDED ORALLY DAILY PRN SEVERE PAIN MDD=1 TAKING BLOOD GLUCOSE TEST - STRIP DIRECTED INTRADERMALLY BID DX: E11.9 MEDICATION LIST REVIEWED AND RECONCILED WITH THE PATIENT PAST MEDICAL HISTORY CAD, S/P AWMI POST-OP LAMINECTOMY-05/2017 VERY SMALL APICAL THROMBUS, LVEF 40%-AKINESIS OF APEX, MID ANT, MID ANTEROSEPTAL, LV DIASTOLIC DYSFX BY 05/2017 TTE-ANTECOL/07/2017 RST S ISCHEMIA BUT FOCAL/GLOBAL ABNORMALITY, LVEF 28%, HIGH RISK-JORGE/12/2017 CATH-NO SIGNIFICANT CAD-GABY/SP ICD 01/12/2018-GABY/02/19/19 TTE C LVEF 50-55%/NO JOAQUIM DYSFX-ETHAN HYPERLIPIDEMIA, 2B PAD T2DM NID COPD/EMPHYSEMA - FEV1 3.7 IN 2007, LIKELY FROM LONG-TERM HEAVY SMOKING ARON--INTOLERANT OF CPAP ED GERD CHRONIC 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 S/P EMERGENT ABDOMINAL AORTO BI-ILIAC ARTERY BYPASS GRAFT--REQUIRED 17 LITERS SALINE, 25 UNITS PRBC, 336 UNITS PLATELETS, 1 LITER FFP, 6 LITER CELL-SAVER ISCHEMIA LOWER EXTREMITIES WITH COMPARTMENT SYNDROME, REQUIRING BILAT 4 COMPATMENT FASCIOTOMIES SEPTIC SHOCK 2 PERFORATED VISCUS S/P EMERGENT LEFT COLECTOMY (C R COLOSTOMY), OPEN CHOLECYSTECTOMY, LIVER PACKING, ABTHERA REPLACMENT CHOLECYSTITIS, BILE LEAK POST CHOLECYSTECTYOMY LEFT COLECTOMY AND RT PARTIAL COLECTOMY WITH COLOSTOMY BRADYARHYTHMIA WITH CARDIAC ARREST/IWMI INFECTED AORTO BI-ILIAC BYPASS GRAFT C 2 CHRONIC DISSEMINATATED CANDIDIASIS AND S. EPIDERMIDIS BACTEREMIA ENTEROCTANEOUS FISTULAE H/O ACRODERMATITIS ENTEROPTHICA (ZINC-DEFICIENCY DERMATITIS) [facility] WITH TRACHEOSTOMY, SUBSEQUENT CLOSURE OF TRACH H/O STAGE 4 SACRAL DECUBITUS PSEUDOMONUS OSTEOMYELITIS HIT--HEPARIN INDUCED THROMBOCYTOPENIA H/O RECURRENT GOUT, L PODAGRA LUMBAR DJD- L3/4 MOD CCS, L4/5 MILD C GRADE 1 LITHESIS AND L L4 COMPRESSION IN NF, L5/S1 DIFFUSE BULGE C MINIMAL TS COMPRESSION BY 04/2017 CT LS SPINE RECURRENT UTI ALLERGIES REMERON: NIGHTMARES - SIDE EFFECTS WELLBUTRIN: AGITATION - SIDE EFFECTS ZOLOFT: DIARRHEA - SIDE EFFECTS PROZAC: DEPRESSION - SIDE EFFECTS SURGICAL HISTORY APPENDECTOMY RIH LEFT ELBOW ULNAR NERVE TRANSPOSITION LUMBAR SPINAL FUSION 04/24 COLONOSCOPY--NL 11/17 REMOVAL SCREWS, RODS LUMBAR SPINE, BONE GRAFTING 06/25 EXP LAPAROTOMY, LEFT COLECTOMY, RIGHT COLOSTOMY 2013 ABORTED L4-L5 DISCECTOMY COMPLICATED BY INTRAOPERATIVE ILIAC VEIN AND AORTIC PERFORATION 07/2014 TRACHEOSTOMY 07/2014 CHOLECYSTECTOMY, SECONDARY TO BILE LEAK 07/2014 BILATERAL LOWER EXTREMITY FASCIOTOMIES R/T COMPARTMENT SYNDROME 07/29 DEFIBRILATOR PLACEMENT (R) SIDE 01/08/18 NEW PACEMAKER WIRE 06/05/18 CIRCUMCISION 2 PHIMOSIS/RECURRENT UTI-TASHI 10/01/2018 FAMILY HISTORY FATHER: , LUNG CANCER, DIAGNOSED WITH OTHER MALIGNANT NEOPLASM OF UNSPECIFIED SITE MOTHER: , DIABETES, TYPE II, DIABETES, OTHER SPECIFIED CONDITIONS INFLUENCING HEALTH STATUS SIBLINGS: DIABETES, TYPE II, DIABETES, UNSPECIFIED HEART DISEASE 6 BROTHER(S) , 5 SISTER(S) . MOM WITH COPD, CHF. BROTHER WITH HEART DISEASE, DIABETES. SOCIAL HISTORY GENERAL: TOBACCO USE ARE YOU A:CURRENT SMOKER ARE YOU INTERESTED IN QUITTING?NOT READY TO QUIT COUNSELED THE PATIENT ON SMOKING EFFECTS, EDUCATION [id number]/01/2019 HOW MANY CIGARETTES A DAY DO YOU SMOKE?6-10 HOW SOON AFTER YOU WAKE UP DO YOU SMOKE YOUR FIRST CIGARETTE?AFTER 60 MIN HOW OFTEN DO YOU SMOKE CIGARETTES?EVERY DAY PATIENT COUNSELED ON THE DANGERS OF TOBACCO USE AND URGED TO QUIT:10/04/2019 SMOKING CESSATION INFORMATION GIVEN08/04/2019 EDUCATION LEVEL OF EDUCATION:NOT FINISHED COLLEGE DIET: REGULAR. LANGUAGE LANGUAGES SPOKEN:ITALIAN DOMESTIC VIOLENCE DO YOU FEEL SAFE IN YOUR ENVIRONMENT?YES BMI CARE GOAL FOLLOW-UP ABOVE NORMAL BMI FOLLOW-UPGIVING ENCOURAGEMENT TO EXERCISE RECREATIONAL DRUG USE DENIES. EXERCISE: WALKING. 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, WHEELCHAIR COUNSELLING PSYCHOLOGIST NEEDED?NO PAIN CLINIC PFS, CLERGY, PUBLIC HEALTH REFERRALS HAS THE PATIENT BEEN EDUCATED REGARDING HIS/HER PLAN OF CARE?YES HAS THE PATIENT BEEN EDUCATED REGARDING PAIN, THE RISK FOR PAIN, THE IMPORTANCE OF EFFECTIVE PAIN MANAGEMENT, AND THE PAIN ASSESSMENT PROCESS?YES LATEX QUESTIONNAIRE LATEX ALLERGY : HAVE YOU EVER DEVELOPED ANY TYPE OF REACTION AFTER HANDLING LATEX PRODUCTS SUCH RUBBER GLOVES, CONDOMS, DIAPHRAGMS, BALLOONS, SOCKS, OR UNDERWEAR?NO LATEX ALLERGY : HAVE YOU EVER DEVELOPED ANY TYPE OF REACTION DURING OR AFTER DENTAL APPOINTMENT, VAGINAL/RECTAL EXAMINATION, SURGICAL PROCEDURE, OR ANY OTHER EXPOSURE?NO DATE ASKED : 11/27/2018 LATEX RISK : HAVE YOU EVER HAD ANY DIFFICULTY BREATHING OR HIVES AFTER EATING OR HANDLING ANY FRUITS, OR VEGETABLES; SUCH KIWI, BANANAS, STONE FRUITS, OR CHESTNUTSNO LATEX RISK : DO YOU HAVE A PREVIOUS PERSONAL HISTORY OF MORE THAN NINE SURGERIES, SPINA BIFIDA, OR REPEATED CATHERIZATIONS? YES - PLEASE INDICATE : > 9 SURGERIES LATEX RISK : ARE YOU FREQUENTLY EXPOSED TO LATEX PRODUCTS IN YOUR OCCUPATION?NO CAFFEINE CAFFEINE USE?YES 2 CUPS PER DAY ADVANCE DIRECTIVE ADVANCE DIRECTIVE DISCUSSED WITH PATIENT:YES POA - MATEO NÚÑEZ (); DECLINED HCP INFORMATION. MANDAEN [id number] PENTECOSTALISM MARITAL STATUS: -MATEO. ALCOHOL SCREENING POINTS: 0, INTERPRETATION: NEGATIVE. OCCUPATION: DISABLED 04/22 FROM [employer]. REVIEWED WITH PATIENT 09/23/18 1432 JSREVIEWED WITH PATIENT 11/27/18 1034 JSREVIEWED WITH PATIENT 02/26/19 1015 JSREVIEWED WITH PATIENT 05/24/19 1303 NLJREVIEWED WITH PATIENT 06/22/2019 1100 LASREVIEWED WITH PATIENT 10/04/19 1215 BVREVIEWED WITH PATIENT 08/04/19 1200 NLJ. HOSPITALIZATION/MAJOR DIAGNOSTIC PROCEDURE COMPLICATIONS FOLLOWING ATTEMPTED LS SPINE SURGERY 07/18/14-05/17/15 SBO, UTI, INFLUENZA-RESOLVED C NGT 09/2015 BOWEL OBSTRUCTION DECEMBER/2016 ABORTED L4-5 DISKECTOMY, COMPLIACTED BY INTRAOPERATIVE ILIACVEIN AND AORTIC PERFORATION 07/29 BILAT LOWER EXT FASCIOTOMIES (COMPARTMENT SYNDROME) 07/29 EXP LAPAROTOMY, LEFT COLECTOMY, RIGHT COLOSTOMY 07/29 OPEN CHOLECYTECTOMY, SECONADRY BILE LEAK 07/29 TRACHEOSTOMY 07/29 REMOVAL INFECTED AORTOBIFEMORAL GRAFT, INSERTION OF SECOND ABF GRAFT 08/28 TEMPORARY PACEMAKER 08/28 ERCP, SPHICTEROTOMY, BILARY STENT PLACEMENT 09/29 FIRST OF SEVERAL SACRAL DECUB DEBRIDEMENTS 11/27 EGD--BILIARY STENT REMOVED 11/27 TRACH REMOVAL/CLOSURE 03/29 SMC-ELEVATED INR 7.9 C BLEEDING AT OSTOMY SITE 04/19-05/01 HOSPITALIZED FOR DEFIBRILATOR PLACEMENT 01/08/18-01/20/18 NEW PACEMAKER WIRE 06/04/18 SYNCOPE 2 SB TO 40S, CARVE DECREASED 25 BID TO 6.25 BID 02/18-06/03 REVIEW OF SYSTEMS REVIEWED BY: PROVIDER: JERMAIN SHERWOOD-C . CONSTITUTIONAL: ANY CHANGE IN YOUR MEDICAL CONDITION? NO . CHILLS NO . FEVER NO . INFECTION: DO YOU HAVE NEW INFECTIONS? NO . DO YOU HAVE HISTORY OF MRSA? NO . MUSCULOSKELETAL: ANY NEW PATTERNS OF PAIN OR NUMBNESS? NO . GASTROENTEROLOGY: ANY NEW CHANGE IN BOWEL CONTROL? NO . GENITOURINARY: ANY NEW CHANGE IN BLADDER CONTROL? NO . IS THERE A CHANCE YOU COULD BE ? NO . HEMATOLOGY/LYMPH: DO YOU TAKE ANY BLOOD THINNERS? (FOR EXAMPLE- COUMADIN, PLAVIX, AGGRENOX, PLATEL, PRADAXA, OR XARELTO) NO . WHEN WAS YOUR LAST DOSE? DATE: TIME: . NEUROLOGY: HAVE YOU FALLEN IN THE PAST 12 MONTHS? NO . ANY NEW EXTREMITY NUMBNESS OR WEAKNESS? NO . CARDIOLOGY: DO YOU HAVE A PACEMAKER OR DEFIBRILLATOR? YES, DEFIBRILLATOR/PACEMAKER . RESPIRATORY: HAVE YOU BEEN SICK IN THE PAST WEEK? NO . FEVER NO . FLU LIKE SYMPTOMS? NO . COUGH NO . INTEGUMENTARY: DO YOU HAVE ANY RASHES OR OPEN SORES? NO . ALLERGIC/IMMUNO: ARE YOU ALLERGIC TO IV DYE? NO . ANY NEW ALLERGIES? NO . PSYCHIATRIC: DO YOU HAVE THOUGHTS OF HURTING YOURSELF OR SOMEONE ELSE? NO . ARE YOU ABUSED, NEGLECTED, OR IN AN UNSAFE ENVIRONMENT? NO . ENDOCRINOLOGY: ARE YOU DIABETIC? NO . OTHER: DO YOU NEED ANY PRESCRIPTIONS? NO . IF YES, PLEASE LIST: ____ . ANY NEW PROBLEMS WITH YOUR MEDICATIONS? NO . WHEN DID YOU LAST EAT? ____ . WHEN DID YOU LAST DRINK? ____ . WHAT DID YOU LAST DRINK? ____ . NAME OF PERSON DRIVING YOU HOME? ____ . DO YOU HAVE ANY OTHER QUESTIONS OR CONCERNS NO . VITAL SIGNS WT 188.2 LBS, HT 69 IN, BMI 27.79 INDEX, BP 170/82 MM HG, HR 60 /MIN, RR 18 /MIN, TEMP 98.2 F, OXYGEN SAT % 96%, SAFE IN ENV? (Y/N) YES, NA INITIALS 1210, REVIEWED BY: BV. EXAMINATION GENERAL EXAMINATION: GENERALNO ACUTE DISTRESS, WELL NOURISHED AND HYDRATED. PSYCHAPPROPRIATE MOOD AND AFFECT . LUNGS:CLEAR TO AUSCULTATION BILATERALLY, NO WHEEZES, RHONCHI, RALES. HEART:NO MURMURS, REGULAR RATE AND RHYTHM. ASSESSMENTS POSTLAMINECTOMY SYNDROME OF LUMBOSACRAL REGION - M96.1 (PRIMARY) TREATMENT POSTLAMINECTOMY SYNDROME OF LUMBOSACRAL REGION REFILL OXYCODONE HCL TABLET, 10 MG, 1 TABLET NEEDED, ORALLY, DAILY PRN SEVERE PAIN MDD=1, 30 DAYS, 30 CLINICAL NOTES: 64-YEAR-OLD MALE IN FOR WORKER'S COMP. CHRONIC PAIN FOLLOW-UP. HE FEELS THE MEDICATIONS ARE WORKING WELL AND DENIES MED SIDE EFFECTS THIS TIME. GIVEN PRESENTING SYMPTOMS AND RESULTS OF PHYSICAL EXAMINATION RECOMMENDED CONTINUATION OF CURRENT MEDICATION REGIMEN WITH FOLLOW-UP IN 3 MONTHS. U TOX TO BE COLLECTED TODAY. PATIENT HAS EXPRESSED UNDERSTANDING OF AND WAS IN AGREEMENT WITH TREATMENT PLAN. GIVEN TIME TO ASK QUESTIONS AND EXPRESS CONCERNS., ISTOP REGISTRY REVIEWED AND DEMONSTRATES COMPLLIANCE. (REF # [id number] ) BRINGS IN MEDICATIONS WHICH IS APPROPRIATE FOR WHAT WAS DISPENSED. RECENT URINE TOXICOLOGY REVIEWED. NO UNAUTHORIZED MEDICATIONS. NO ILLICIT SUBSTANCES AND PRESCRIBED MEDICATIONS WERE PRESENT. PROCEDURES PN WORKMANS' COMP OPINION IN YOUR OPINION, WAS THE INCIDENT THAT THE PATIENT DESCRIBED THE COMPETENT MEDICAL CAUSE OF THIS INJURY/ILLNESS? YES ARE THE PATIENT'S COMPLAINTS CONSISTENT WITH HIS/HER HISTORY OF THE INJURY/ILLNESS? YES IS THE PATIENT'S HISTORY OF THE INJURY/ILLNESS CONSISTENT WITH YOUR OBJECTIVE FINDING? YES WHAT IS THE PERCENTAGE OF TEMPORARY IMPAIRMENT? TOTAL = 100% IS THE PATIENT WORKING? NO DOCTOR ON SITE: LUX CARPIO MD PROCEDURE CODES FA211 ESTABILISHED PATIENT [facility] CHARGE DISPOSITION & COMMUNICATION FOLLOW UP 3 MONTHS (REASON: LOW BACK PAIN, WORKER'S COMP.) ELECTRONICALLY SIGNED BY KAELA JUNIOR ON 10/05/2019 AT 09:20 AM EST DISCLAIMER : THIS IS A VISIT SUMMARY EXTRACTED FROM THE [employer] CHART. IT IS NOT A COPY OF THE [employer] PROGRESS NOTE. MARIAELENA
== END ==
LOC: M PAIN 11:30
PROVIDERS: ATTEND Family Medicine
DX: M96.1 Postlaminectomy syndrome, not elsewhere classified (principal); E78.5 Hyperlipidemia, unspecified; E11.9 Type 2 diabetes mellitus without complications; J44.9 Chronic obstructive pulmonary disease, unspecified; G47.33 Obstructive sleep apnea (adult) (pediatric); K21.9 Gastro-esophageal reflux disease without esophagitis; F17.210 Nicotine dependence, cigarettes, uncomplicated; Z88.8 Allergy status to other drugs, medicaments and biological substances; Z95.0 Presence of cardiac pacemaker; Z79.82 Long term (current) use of aspirin; Z79.899 Other long term (current) drug therapy

== ENCOUNTER → 2019-10-13 | Outpatient (REF) | payer OTHER ==
[2019-10-13 13:46] LABS: APPEARANCE, URINE CLOUDY (CLEAR); BACTERIA, URINE AUTO 2+ (NEGATIVE); BILIRUBIN, URINE AUTO NEGATIVE (NEGATIVE); BLOOD, URINE BLOOD 1+ (NEGATIVE); COLOR, URINE YELLOW (YELLOW); GLUCOSE, URINE (UA) AUTO 3+ mg/dL (NEGATIVE); KETONE, URINE AUTO NEGATIVE (NEGATIVE); LEUKOCYTE ESTERASE, URINE AUTO 2+ (NEGATIVE); NITRITE, URINE AUTO POSITIVE (NEGATIVE); PROTEIN, URINE AUTO 1+ mg/dL (NEGATIVE); RBC, URINE AUTO 6 /HPF (0-3); SPECIFIC GRAVITY URINE AUTO 1.016 (1.002-1.035); SQUAMOUS EPITHELIAL CELL UR AU 0 /HPF (0-6); UROBILINOGEN, URINE AUTO 0.2 mg/dL (0.0-2.0); WBC, URINE AUTO 57 /HPF (0-3)
== END ==
LOC: M SFHCPLAZ 13:03
PROVIDERS: ATTEND Nurse Practitioner Family
DX: N39.0 Urinary tract infection, site not specified (principal)

== ENCOUNTER → 2019-10-18 | Outpatient (CLI) | payer OTHER ==
[2019-10-18 17:43] LABS: BASO # 0.1 10^3/uL (0.0-0.2); BASO % 0.5 % (0.0-1.0); EOS # 0.2 10^3/uL (0.0-0.5); EOS % 1.8 % (0.0-3.0); HEMATOCRIT 49.8 % (42.0-52.0); HEMOGLOBIN 15.1 g/dl (13.5-17.5); LYMPH # 1.7 10^3/uL (1.5-5.0); LYMPH % 12.8 % (24.0-44.0); MEAN CORPUSCULAR HEMOGLOBIN 29.2 pg (27.0-33.0); MEAN CORPUSCULAR HGB CONC 30.3 g/dl (32.0-36.5); MEAN CORPUSCULAR VOLUME 96.3 fl (80.0-96.0); MONO # 1.1 10^3/uL (0.0-0.8); MONO % 8.1 % (0.0-5.0); NEUTROPHILS # 10.1 10^3/uL (1.5-8.5); NEUTROPHILS % 76.1 % (36.0-66.0); PLATELET COUNT, AUTOMATED 304 10^3/uL (150-450); RED BLOOD COUNT 5.17 10^6/uL (4.30-6.10); WHITE BLOOD COUNT 13.3 10^3/uL (4.0-10.0)
[2019-10-18 18:04] LABS: ALBUMIN 3.7 GM/DL (3.2-5.2); BILIRUBIN,TOTAL 0.3 MG/DL (0.2-1.0); CALCIUM LEVEL 9.3 MG/DL (8.8-10.2); CHOLESTEROL RISK RATIO 3.743 (<5); CREATININE FOR GFR 1.61 MG/DL (0.70-1.30); GLOMERULAR FILTRATION RATE 46.4 (>49); POTASSIUM SERUM 4.5 MEQ/L (3.5-5.1); TOTAL PROTEIN 7.6 GM/DL (6.4-8.2)
[2019-10-18 18:13] LABS: PTH INTACT 44.9 PG/ML (18.5-88.0)
== END ==
LOC: M PLALAB 12:16
PROVIDERS: ATTEND Nurse Practitioner Family
DX: E11.8 Type 2 diabetes mellitus with unspecified complications (principal); E55.9 Vitamin D deficiency, unspecified; D50.9 Iron deficiency anemia, unspecified; N39.0 Urinary tract infection, site not specified

== ENCOUNTER → 2019-10-20 | Outpatient (REF) | payer OTHER ==
[2019-10-20 13:24] LABS: BASO # 0.1 10^3/uL (0.0-0.2); BASO % 0.5 % (0.0-1.0); EOS # 0.3 10^3/uL (0.0-0.5); HEMATOCRIT 45.9 % (42.0-52.0); HEMOGLOBIN 14.4 g/dl (13.5-17.5); LYMPH # 1.5 10^3/uL (1.5-5.0); MEAN CORPUSCULAR HEMOGLOBIN 30.1 pg (27.0-33.0); MEAN CORPUSCULAR HGB CONC 31.4 g/dl (32.0-36.5); MEAN CORPUSCULAR VOLUME 95.8 fl (80.0-96.0); MONO # 0.8 10^3/uL (0.0-0.8); MONO % 5.7 % (0.0-5.0); NEUTROPHILS # 10.7 10^3/uL (1.5-8.5); NEUTROPHILS % 80.3 % (36.0-66.0); PLATELET COUNT, AUTOMATED 279 10^3/uL (150-450); RED BLOOD COUNT 4.79 10^6/uL (4.30-6.10); WHITE BLOOD COUNT 13.4 10^3/uL (4.0-10.0)
[2019-10-20 13:52] LABS: ALBUMIN 3.5 GM/DL (3.2-5.2); BILIRUBIN,TOTAL 0.4 MG/DL (0.2-1.0); CREATININE FOR GFR 1.42 MG/DL (0.70-1.30); GLOMERULAR FILTRATION RATE 53.6 (>49); POTASSIUM SERUM 4.5 MEQ/L (3.5-5.1); TOTAL PROTEIN 7.3 GM/DL (6.4-8.2)
== END ==
LOC: M LAB REF 12:04
PROVIDERS: ATTEND Family Medicine
DX: N39.0 Urinary tract infection, site not specified (principal)
CPT/HCPCS: 80053; 83605; 85025; G0103

== ENCOUNTER 2019-10-28 13:24 | Outpatient (CLI) | payer OTHER ==
[~2019-10-28] VITALS: Ht 175.3 cm; Wt 86.2 kg
[2019-10-28 13:35] VITALS: BP 136/74
[2019-10-28] MEDS ORDERED: ZOLEDRONIC ACID 5 MG in IV 1 EA IV ONE (14:00)
[2019-10-28 14:25] VITALS: BP 144/79
== END 2019-10-28 14:30 | disposition home or self-care (01) ==
LOC: M INFU 13:24
PROVIDERS: ATTEND Family Medicine
DX: M85.80 Other specified disorders of bone density and structure, unspecified site (principal); Z88.1 Allergy status to other antibiotic agents; Z88.8 Allergy status to other drugs, medicaments and biological substances
CPT/HCPCS: 96365; J3489

== ENCOUNTER → 2019-12-10 | Outpatient (REF) | payer OTHER ==
[2019-12-10 16:42] LABS: APPEARANCE, URINE CLOUDY (CLEAR); BACTERIA, URINE AUTO NEGATIVE (NEGATIVE); BILIRUBIN, URINE AUTO NEGATIVE (NEGATIVE); BLOOD, URINE BLOOD 3+ (NEGATIVE); COLOR, URINE YELLOW (YELLOW); GLUCOSE, URINE (UA) AUTO NEGATIVE (NEGATIVE); KETONE, URINE AUTO NEGATIVE (NEGATIVE); LEUKOCYTE ESTERASE, URINE AUTO 3+ (NEGATIVE); MUCUS, URINE SMALL (NEGATIVE); NITRITE, URINE AUTO NEGATIVE (NEGATIVE); PROTEIN, URINE AUTO 1+ mg/dL (NEGATIVE); RBC, URINE AUTO 25 /HPF (0-3); SPECIFIC GRAVITY URINE AUTO 1.011 (1.002-1.035); SQUAMOUS EPITHELIAL CELL UR AU 1 /HPF (0-6); UROBILINOGEN, URINE AUTO 0.2 mg/dL (0.0-2.0); WBC, URINE AUTO TNTC /HPF (0-3)
== END ==
LOC: M LAB REF 16:13
PROVIDERS: ATTEND Family Medicine
DX: N39.0 Urinary tract infection, site not specified (principal)

== ENCOUNTER 2019-12-27 18:46 | Emergency (ER) | payer OTHER ==
[~2019-12-27] VITALS: Ht 175.3 cm; Wt 84.1 kg
[~2019-12-27 18:46] MED LIST changes: +OXYC-1 PO; -OXYC15TA76 PO
[2019-12-27 18:47] VITALS: BP 123/86
[2019-12-27] MEDS ORDERED: PERCOCET 5MG/325MG TAB PO ONE (21:00)
[2019-12-27] MEDS ORDERED: ACETAMINOPHEN TAB 650MG DOSE (2X325MG) PO ONE (21:00)
--- NOTE | 2019-12-28 02:39 | REP ---
Clinical: Trauma. Technique: Frontal view of the chest with four views of the right hemithorax. Findings: Frontal view of the chest demonstrates no acute cardiopulmonary process. Right-sided pacemaker partially obscures portions of the right ribs. Multiple views of the right hemithorax demonstrates no obvious acute rib fracture or pathology. Impression: No acute right rib fracture or pathology identified. Electronically Signed by Adithya Zuniga MD 12/28/2019 02:30 A
== END 2019-12-27 21:10 | disposition home or self-care (01) ==
LOC: M ED 18:46
DX: S20.211A Contusion of right front wall of thorax, initial encounter (principal); X58.XXXA Exposure to other specified factors, initial encounter; Y92.89 Other specified places as the place of occurrence of the external cause; I10 Essential (primary) hypertension; J44.9 Chronic obstructive pulmonary disease, unspecified; G47.30 Sleep apnea, unspecified; E78.5 Hyperlipidemia, unspecified; K21.9 Gastro-esophageal reflux disease without esophagitis; Z79.899 Other long term (current) drug therapy; Z79.82 Long term (current) use of aspirin; Z88.5 Allergy status to narcotic agent; Z88.8 Allergy status to other drugs, medicaments and biological substances

== ENCOUNTER → 2020-01-03 | Outpatient (CLI) | payer OTHER ==
--- NOTE | 2020-01-05 04:55 | ECWPNPC ---
PATIENT NAME: MACKENZIE NÚÑEZ : 1955 GENDER: MALE VISIT DATE: 01/03/2020 DISCHARGE DATE: 01/03/20 1157 VISIT LOCKED DATE TIME: PHYSICIAN: EMMANUEL BARAJAS PHYSICIAN PAGER NO: [phone] RESOURCE: EMMANUEL BARAJAS REASON FOR APPOINTMENT 1. W/C HISTORY OF PRESENT ILLNESS HISTORY OF PRESENT ILLNESS: PAIN THE PATIENT DESCRIBES THE PAIN... PERMISSION REQUESTED AND RECEIVED FROM PATIENT TO PERFORM TELEPHONE VISIT. 64-YEAR-OLD MALE IN FOR WORKER'S COMP. CHRONIC PAIN FOLLOW-UP. HE FEELS MEDICATIONS ARE HELPFUL AND DENIES MED SIDE EFFECTS AT THIS TIME. HE RATES HIS PAIN CURRENTLY AT AN 10 OUT OF 10. 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 THE PATIENT SAYS HIS PAIN STARTS IN HIS LOW BACK AND RADIATES DOWN INTO HIS LEGS. THE PATIENT HAS HAD FOUR BACK SURGERIES AND REPORTS HAVING COMPLICATIONS DURING THE MOST RECENT SURGERY BECAUSE THEY WENT IN THROUGH HIS FRONT. THE PATIENT SAYS HE HAS BEEN USING A WHEELCHAIR SINCE THE LAST SURGERY. THE PATIENT IS CURRENTLY USING OXYCODONE NEEDED TO AID IN PAIN RELIEF. FALL RISK SCREENING: SCREENING :NO FALLS REPORTED IN THE LAST YEAR CURRENT MEDICATIONS TAKING PANTOPRAZOLE SODIUM 40 MG TABLET DELAYED RELEASE 1 TABLET ORALLY ONCE A DAY TAKING PAROXETINE HCL 40 MG TABLET 1 TABLET IN THE MORNING ORALLY ONCE A DAY TAKING ASPIRIN 81 MG TABLET CHEWABLE 1 TABLET ORALLY ONCE A DAY TAKING GABAPENTIN 600 MG TABLET 1 TABLET ORALLY THREE TIMES DAILY TAKING MIRALAX - PACKET 1 PACKET MIXED WITH 8 OUNCES OF FLUID ORALLY ONCE A DAY TAKING LOSARTAN POTASSIUM 100 MG TABLET 1 TABLET ORALLY EVERY MORNING TAKING CARVEDILOL 6.25 MG TABLET 1 TAB ORALLY BID TAKING MAY HAVE - - LARGE NON-SKID SOCKS FOR DX=G82.21 (PARAPLEGIA) DAILY TAKING PREVAIL WET WIPES - MISCELLANEOUS DIRECTED FOR DX=G82.21 (PARAPLEGIA) DAILY TAKING LANCETS - MISCELLANEOUS DIRECTED DX: E11.9 TWICE A DAY TAKING GAIT/TRANSFER BELT - MISCELLANEOUS DIRECTED TAKING MAY USE 1 - BRACE FOR LEFT LOWER EXTREMITY DIRECTED DX:R27.0 DAILY CONTRACTURE OF LOWER JOINT, NOTES: FAX TO [phone] TAKING MULTIVITAMIN & MINERAL TABLET 1 TAB(S) ORALLY DAILY TAKING PAROXETINE HCL 40 MG TABLET 1 TABLET IN THE MORNING ORALLY ONCE A DAY, NOTES: DUPLICATE TAKING HYDROCERIN - CREAM DIRECTED EXTERNALLY BID TO LOWER LEGS FROM KNEES DOWN TAKING FLUCONAZOLE 100 MG TABLET 1 TABLET ORALLY ONCE A DAY TAKING AMLODIPINE BESYLATE 5 MG TABLET TAKE ONE TABLET BY MOUTH EVERY DAY ORAL TAKING IODOSORB 0.9 % GEL APPLY TO RIGHT GREAT TOE EXTERNALLY 2-3X/WEEK X 4 WEEKS TAKING ACETOMINOPHEN-325 MG 325 MG TABLET 1 OR 2 TABS ORALLY EVERY FOUR HOURS PRN TAKING VOLTAREN 1 % GEL 4 GM TRANSDERMAL EVERY 4-HOURS NEEDED TAKING PANTOPRAZOLE SODIUM 40 MG TABLET DELAYED RELEASE 1 TABLET ORALLY ONCE A DAY TAKING BLOOD GLUCOSE TEST - STRIP DIRECTED INTRADERMALLY BID DX: E11.9 TAKING GABAPENTIN 600 MG TABLET 1 TABLET ORALLY THREE TIMES DAILY TAKING RECLAST 5 MG/100ML SOLUTION DIRECTED INTRAVENOUS TAKING ROSUVASTATIN CALCIUM 10 MG TABLET 1 TABLET ORALLY ONCE A DAY TAKING SKELAXIN 800 MG TABLET 1 TABLET ORALLY THREE TIMES A DAY TAKING CERTAVITE/ANTIOXIDANTS - TABLET 1 TABLET ORALLY ONCE A DAY TAKING FLUCONAZOLE 200 MG TABLET 2 TABLETS ORALLY ONCE A DAY TAKING FERROUS SULFATE 325 (65 FE) MG TABLET 1 TABLET ORALLY ONCE A DAY TAKING BACTRIM DS 800-160 MG TABLET 1 TABLET ORALLY TWICE A DAY TAKING OXYCODONE HCL 10 MG TABLET 1 TABLET NEEDED ORALLY DAILY PRN SEVERE PAIN MDD=1 NOT-TAKING LOSARTAN POTASSIUM 50 MG TABLET 1 TABLET ORALLY EVERY MORNING NOT-TAKING AMOXICILLIN 500 MG CAPSULE 1 CAPSULE ORALLY THREE TIMES DAILY NOT-TAKING LEVAQUIN 500 MG TABLET 1 TABLET ORALLY ONCE A DAY MEDICATION LIST REVIEWED AND RECONCILED WITH THE PATIENT PAST MEDICAL HISTORY CAD, S/P AWMI POST-OP LAMINECTOMY-05/2017 VERY SMALL APICAL THROMBUS, LVEF 40%-AKINESIS OF APEX, MID ANT, MID ANTEROSEPTAL, LV DIASTOLIC DYSFX BY 05/2017 TTE-ANTECOL/07/2017 RST S ISCHEMIA BUT FOCAL/GLOBAL ABNORMALITY, LVEF 28%, HIGH RISK-BILLKA/12/2017 CATH-NO SIGNIFICANT CAD-GABY/SP ICD 01/12/2018-GABY/02/19/19 TTE C LVEF 50-55%/NO JOAQUIM DYSFX-ETHAN HYPERLIPIDEMIA, 2B PAD T2DM NID COPD/EMPHYSEMA - FEV1 3.7 IN 2007, LIKELY FROM LONG-TERM HEAVY SMOKING ARON--INTOLERANT OF CPAP ED GERD CHRONIC 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 S/P EMERGENT ABDOMINAL AORTO BI-ILIAC ARTERY BYPASS GRAFT--REQUIRED 17 LITERS SALINE, 25 UNITS PRBC, 336 UNITS PLATELETS, 1 LITER FFP, 6 LITER CELL-SAVER ISCHEMIA LOWER EXTREMITIES WITH COMPARTMENT SYNDROME, REQUIRING BILAT 4 COMPATMENT FASCIOTOMIES SEPTIC SHOCK 2 PERFORATED VISCUS S/P EMERGENT LEFT COLECTOMY (C R COLOSTOMY), OPEN CHOLECYSTECTOMY, LIVER PACKING, ABTHERA REPLACMENT CHOLECYSTITIS, BILE LEAK POST CHOLECYSTECTYOMY LEFT COLECTOMY AND RT PARTIAL COLECTOMY WITH COLOSTOMY BRADYARHYTHMIA WITH CARDIAC ARREST/IWMI INFECTED AORTO BI-ILIAC BYPASS GRAFT C 2 CHRONIC DISSEMINATATED CANDIDIASIS AND S. EPIDERMIDIS BACTEREMIA ENTEROCTANEOUS FISTULAE H/O ACRODERMATITIS ENTEROPTHICA (ZINC-DEFICIENCY DERMATITIS) PROLONGED ICU/[facility] VENTILATRION WITH TRACHEOSTOMY, SUBSEQUENT CLOSURE OF TRACH H/O STAGE 4 SACRAL DECUBITUS PSEUDOMONUS OSTEOMYELITIS HIT--HEPARIN INDUCED THROMBOCYTOPENIA H/O RECURRENT GOUT, L PODAGRA LUMBAR DJD- L3/4 MOD CCS, L4/5 MILD C GRADE 1 LITHESIS AND L L4 COMPRESSION IN NF, L5/S1 DIFFUSE BULGE C MINIMAL TS COMPRESSION BY 04/2017 CT LS SPINE RECURRENT UTI ALLERGIES REMERON: NIGHTMARES - SIDE EFFECTS WELLBUTRIN: AGITATION - SIDE EFFECTS ZOLOFT: DIARRHEA - SIDE EFFECTS PROZAC: DEPRESSION - SIDE EFFECTS SURGICAL HISTORY APPENDECTOMY RIH LEFT ELBOW ULNAR NERVE TRANSPOSITION LUMBAR SPINAL FUSION 04/24 COLONOSCOPY--NL 11/17 REMOVAL SCREWS, RODS LUMBAR SPINE, BONE GRAFTING 06/25 EXP LAPAROTOMY, LEFT COLECTOMY, RIGHT COLOSTOMY 2013 ABORTED L4-L5 DISCECTOMY COMPLICATED BY INTRAOPERATIVE ILIAC VEIN AND AORTIC PERFORATION 07/2014 TRACHEOSTOMY 07/2014 CHOLECYSTECTOMY, SECONDARY TO BILE LEAK 07/2014 BILATERAL LOWER EXTREMITY FASCIOTOMIES R/T COMPARTMENT SYNDROME 07/29 DEFIBRILATOR PLACEMENT (R) SIDE 01/08/18 NEW PACEMAKER WIRE 06/05/18 CIRCUMCISION 2 PHIMOSIS/RECURRENT UTI-TASHI 10/01/2018 FAMILY HISTORY FATHER: , LUNG CANCER, DIAGNOSED WITH OTHER MALIGNANT NEOPLASM OF UNSPECIFIED SITE MOTHER: , DIABETES, TYPE II, DIABETES, OTHER SPECIFIED CONDITIONS INFLUENCING HEALTH STATUS SIBLINGS: DIABETES, TYPE II, DIABETES, UNSPECIFIED HEART DISEASE 6 BROTHER(S) , 5 SISTER(S) . MOM WITH COPD, CHF. BROTHER WITH HEART DISEASE, DIABETES. SOCIAL HISTORY GENERAL: TOBACCO USE ARE YOU A:CURRENT SMOKER ARE YOU INTERESTED IN QUITTING?NOT READY TO QUIT COUNSELED THE PATIENT ON SMOKING EFFECTS, EDUCATION HCHAZSGP34/20/2020 HOW MANY CIGARETTES A DAY DO YOU SMOKE?6-10 HOW SOON AFTER YOU WAKE UP DO YOU SMOKE YOUR FIRST CIGARETTE?AFTER 60 MIN HOW OFTEN DO YOU SMOKE CIGARETTES?EVERY DAY PATIENT COUNSELED ON THE DANGERS OF TOBACCO USE AND URGED TO QUIT:01/03/2020 SMOKING CESSATION INFORMATION GIVEN10/19/2019 LATEX QUESTIONNAIRE LATEX ALLERGY : HAVE YOU EVER DEVELOPED ANY TYPE OF REACTION AFTER HANDLING LATEX PRODUCTS SUCH RUBBER GLOVES, CONDOMS, DIAPHRAGMS, BALLOONS, SOCKS, OR UNDERWEAR?NO LATEX ALLERGY : HAVE YOU EVER DEVELOPED ANY TYPE OF REACTION DURING OR AFTER DENTAL APPOINTMENT, VAGINAL/RECTAL EXAMINATION, SURGICAL PROCEDURE, OR ANY OTHER EXPOSURE?NO DATE ASKED : 11/27/2018 LATEX RISK : HAVE YOU EVER HAD ANY DIFFICULTY BREATHING OR HIVES AFTER EATING OR HANDLING ANY FRUITS, OR VEGETABLES; SUCH KIWI, BANANAS, STONE FRUITS, OR CHESTNUTSNO LATEX RISK : DO YOU HAVE A PREVIOUS PERSONAL HISTORY OF MORE THAN NINE SURGERIES, SPINA BIFIDA, OR REPEATED CATHERIZATIONS? YES - PLEASE INDICATE : > 9 SURGERIES LATEX RISK : ARE YOU FREQUENTLY EXPOSED TO LATEX PRODUCTS IN YOUR OCCUPATION?NO BMI CARE GOAL FOLLOW-UP ABOVE NORMAL BMI FOLLOW-UPGIVING ENCOURAGEMENT TO EXERCISE ALCOHOL SCREENING POINTS: 0, INTERPRETATION: NEGATIVE. RECREATIONAL DRUG USE DENIES. CAFFEINE CAFFEINE USE?YES 2 CUPS PER DAY HIV / HEP-C SCREENING HIV TEST OFFERED TO PATIENT:YES DATE OFFERED:10/19/2019 TEST ACCEPTED:NO HEP-C TEST OFFERED TO PATIENT:YES DATE OFFERED:10/19/2019 REASON:PATIENT DECLINED TEST ACCEPTED:NO REASON:PATIENT DECLINED BROCHURE PROVIDED TO PATIENTYES CHEONDOISM [id number] BUDDHIST LANGUAGE LANGUAGES SPOKEN:BERMUDIAN EDUCATION LEVEL OF EDUCATION:NOT FINISHED COLLEGE 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 DIET: REGULAR. EXERCISE: WALKING. MARITAL STATUS: -MATEO. NEW PATIENT PAIN DIARY PATIENT DESCRIBES PAIN :HAVE IT ALL THE TIME, SHARP FROM 0-10, WHAT LEVEL IS YOUR PAIN TODAY?10 PRECIPITATING FACTORS WORSE WITH ACTIVITY ALLEVIATING FACTORS PAIN MEDS PAIN CLINIC PFS, CLERGY, PUBLIC HEALTH REFERRALS HAS THE PATIENT BEEN EDUCATED REGARDING HIS/HER PLAN OF CARE?YES HAS THE PATIENT BEEN EDUCATED REGARDING PAIN, THE RISK FOR PAIN, THE IMPORTANCE OF EFFECTIVE PAIN MANAGEMENT, AND THE PAIN ASSESSMENT PROCESS?YES ADVANCE DIRECTIVE ADVANCE DIRECTIVE DISCUSSED WITH PATIENT:YES POA - MATEO NÚÑEZ (); DECLINED HCP INFORMATION. HOSPITALIZATION/MAJOR DIAGNOSTIC PROCEDURE COMPLICATIONS FOLLOWING ATTEMPTED LS SPINE SURGERY 07/18/14-05/17/15 SBO, UTI, INFLUENZA-RESOLVED C NGT 09/2015 BOWEL OBSTRUCTION DECEMBER/2016 ABORTED L4-5 DISKECTOMY, COMPLIACTED BY INTRAOPERATIVE ILIACVEIN AND AORTIC PERFORATION 07/29 BILAT LOWER EXT FASCIOTOMIES (COMPARTMENT SYNDROME) 07/29 EXP LAPAROTOMY, LEFT COLECTOMY, RIGHT COLOSTOMY 07/29 OPEN CHOLECYTECTOMY, SECONADRY BILE LEAK 07/29 TRACHEOSTOMY 07/29 REMOVAL INFECTED AORTOBIFEMORAL GRAFT, INSERTION OF SECOND ABF GRAFT 08/28 TEMPORARY PACEMAKER 08/28 ERCP, SPHICTEROTOMY, BILARY STENT PLACEMENT 09/29 FIRST OF SEVERAL SACRAL DECUB DEBRIDEMENTS 11/27 EGD--BILIARY STENT REMOVED 11/27 TRACH REMOVAL/CLOSURE 03/29 SMC-ELEVATED INR 7.9 C BLEEDING AT OSTOMY SITE 04/19-05/01 HOSPITALIZED FOR DEFIBRILATOR PLACEMENT 01/08/18-01/20/18 NEW PACEMAKER WIRE 06/04/18 SYNCOPE 2 SB TO 40S, CARVE DECREASED 25 BID TO 6.25 BID 02/18-06/03 REVIEW OF SYSTEMS REVIEWED BY: PROVIDER: JERMAIN SKINNER . CONSTITUTIONAL: ANY CHANGE IN YOUR MEDICAL CONDITION? NO . CHILLS NO . FEVER NO . INFECTION: DO YOU HAVE NEW INFECTIONS? YES UTI IN NOVEMBER, TREATED WITH AMOXICILLIN . DO YOU HAVE HISTORY OF MRSA? NO . MUSCULOSKELETAL: ANY NEW PATTERNS OF PAIN OR NUMBNESS? YES PT REPORTS GENERAL INCREASE IN PAIN . GASTROENTEROLOGY: ANY NEW CHANGE IN BOWEL CONTROL? NO . GENITOURINARY: ANY NEW CHANGE IN BLADDER CONTROL? NO . IS THERE A CHANCE YOU COULD BE ? NO . HEMATOLOGY/LYMPH: DO YOU TAKE ANY BLOOD THINNERS? (FOR EXAMPLE- COUMADIN, PLAVIX, AGGRENOX, PLATEL, PRADAXA, OR XARELTO) NO . WHEN WAS YOUR LAST DOSE? DATE: TIME: . NEUROLOGY: HAVE YOU FALLEN IN THE PAST 12 MONTHS? YESPT REPORTS HE FELL OUT OF HIS WHEELCHAIR 3 DAYS AGO. HE WENT TO THE ED FOLLOWING FALL, DIAGNOSED WITH A CONTUSION ON HIS RIB. . ANY NEW EXTREMITY NUMBNESS OR WEAKNESS? NO . CARDIOLOGY: DO YOU HAVE A PACEMAKER OR DEFIBRILLATOR? YES . RESPIRATORY: HAVE YOU BEEN SICK IN THE PAST WEEK? NO . FEVER NO . FLU LIKE SYMPTOMS? NO . COUGH NO . INTEGUMENTARY: DO YOU HAVE ANY RASHES OR OPEN SORES? YES OPEN AREAS ON TOE AND BACK, SEES DR RAZO . ALLERGIC/IMMUNO: ARE YOU ALLERGIC TO IV DYE? NO . ANY NEW ALLERGIES? NO . PSYCHIATRIC: DO YOU HAVE THOUGHTS OF HURTING YOURSELF OR SOMEONE ELSE? NO . ARE YOU ABUSED, NEGLECTED, OR IN AN UNSAFE ENVIRONMENT? NO . ENDOCRINOLOGY: ARE YOU DIABETIC? NO . OTHER: DO YOU NEED ANY PRESCRIPTIONS? NO . IF YES, PLEASE LIST: ____ . ANY NEW PROBLEMS WITH YOUR MEDICATIONS? NO . WHEN DID YOU LAST EAT? ____ . WHEN DID YOU LAST DRINK? ____ . WHAT DID YOU LAST DRINK? ____ . NAME OF PERSON DRIVING YOU HOME? ____ . DO YOU HAVE ANY OTHER QUESTIONS OR CONCERNS NO . EXAMINATION GENERAL EXAMINATION: PSYCH ALERT , ORIENTED X 3 . 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 CHRONIC PAIN FOLLOW-UP. GIVEN PRESENTING SYMPTOMS RECOMMEND INCREASING NUMBER OF OXYCODONE TABS TO 45 TABS TO LAST ONE MONTH. WE'LL FOLLOW-UP IN 2 MONTHS TO DETERMINE EFFICACY OF TREATMENT. PATIENT HAS EXPRESSED UNDERSTANDING OF AND WAS IN AGREEMENT WITH TREATMENT PLAN. GIVEN TIME TO ASK QUESTIONS AND EXPRESS CONCERNS. , ISTOP REGISTRY REVIEWED AND DEMONSTRATES COMPLLIANCE. (REF # [id number] ) BRINGS IN MEDICATIONS WHICH IS APPROPRIATE FOR WHAT WAS DISPENSED. RECENT URINE TOXICOLOGY REVIEWED. NO UNAUTHORIZED MEDICATIONS. NO ILLICIT SUBSTANCES AND PRESCRIBED MEDICATIONS WERE PRESENT. VISIT TO BE BILLED BASED ON TIME SPENT WITH PATIENT. TIME SPENT WITH PATIENT 11 MINUTES. OTHERS NOTES: UNABLE TO TAKE VITAL SIGNS, THIS IS A TELEPHONE/VIRTUAL VISIT. DISPOSITION & COMMUNICATION FOLLOW UP 2 MONTHS (REASON: BACK PAIN) ELECTRONICALLY SIGNED BY KAELA JUNIOR ON 01/04/2020 AT 08:40 AM EDT DISCLAIMER : THIS IS A VISIT SUMMARY EXTRACTED FROM THE [employer] CHART. IT IS NOT A COPY OF THE [employer] PROGRESS NOTE. GRISELDAD
== END ==
LOC: M PAIN 11:00
PROVIDERS: ATTEND Family Medicine
DX: M47.816 Spondylosis without myelopathy or radiculopathy, lumbar region (principal); G89.29 Other chronic pain; E11.9 Type 2 diabetes mellitus without complications; J44.9 Chronic obstructive pulmonary disease, unspecified; G47.30 Sleep apnea, unspecified; K21.9 Gastro-esophageal reflux disease without esophagitis; F17.210 Nicotine dependence, cigarettes, uncomplicated; Z88.8 Allergy status to other drugs, medicaments and biological substances; Z95.0 Presence of cardiac pacemaker; Z79.82 Long term (current) use of aspirin; Z79.899 Other long term (current) drug therapy

== ENCOUNTER → 2020-01-18 | Outpatient (REF) | payer OTHER ==
[2020-01-18 14:48] LABS: APPEARANCE, URINE HAZY (CLEAR); BACTERIA, URINE AUTO 1+ (NEGATIVE); BILIRUBIN, URINE AUTO NEGATIVE (NEGATIVE); BLOOD, URINE BLOOD NEGATIVE (NEGATIVE); COLOR, URINE YELLOW (YELLOW); GLUCOSE, URINE (UA) AUTO NEGATIVE (NEGATIVE); KETONE, URINE AUTO TRACE mg/dL (NEGATIVE); LEUKOCYTE ESTERASE, URINE AUTO 1+ (NEGATIVE); MUCUS, URINE SMALL (NEGATIVE); NITRITE, URINE AUTO NEGATIVE (NEGATIVE); PROTEIN, URINE AUTO NEGATIVE (NEGATIVE); RBC, URINE AUTO 6 /HPF (0-3); SQUAMOUS EPITHELIAL CELL UR AU 0 /HPF (0-6); UROBILINOGEN, URINE AUTO 0.2 mg/dL (0.0-2.0); WBC, URINE AUTO 35 /HPF (0-3)
== END ==
LOC: M LAB REF 13:59
PROVIDERS: ATTEND Family Medicine
DX: N39.0 Urinary tract infection, site not specified (principal)

== ENCOUNTER → 2020-02-14 | Outpatient (REF) | payer OTHER ==
[2020-02-14 17:02] LABS: BASO # 0.1 10^3/uL (0.0-0.2); BASO % 0.6 % (0.0-1.0); EOS # 0.3 10^3/uL (0.0-0.5); EOS % 2.4 % (0.0-3.0); HEMOGLOBIN 15.3 g/dl (13.5-17.5); LYMPH # 1.6 10^3/uL (1.5-5.0); LYMPH % 14.2 % (24.0-44.0); MEAN CORPUSCULAR HEMOGLOBIN 30.4 pg (27.0-33.0); MEAN CORPUSCULAR HGB CONC 31.9 g/dl (32.0-36.5); MEAN CORPUSCULAR VOLUME 95.4 fl (80.0-96.0); NEUTROPHILS # 8.4 10^3/uL (1.5-8.5); NEUTROPHILS % 73.3 % (36.0-66.0); PLATELET COUNT, AUTOMATED 251 10^3/uL (150-450); RED BLOOD COUNT 5.03 10^6/uL (4.30-6.10); WHITE BLOOD COUNT 11.4 10^3/uL (4.0-10.0)
[2020-02-14 17:28] LABS: ALBUMIN 3.7 GM/DL (3.2-5.2); ALT/SGPT 35 U/L (12-78); BILIRUBIN,TOTAL 0.3 MG/DL (0.2-1.0); BLOOD UREA NITROGEN 25 MG/DL (7-18); CALCIUM LEVEL 9.1 MG/DL (8.8-10.2); CARBON DIOXIDE LEVEL 29 MEQ/L (21-32); CHLORIDE LEVEL 103 MEQ/L (98-107); CREATININE FOR GFR 1.54 MG/DL (0.70-1.30); GLOMERULAR FILTRATION RATE 48.8 (>49); GLUCOSE, FASTING 119 MG/DL (70-100); MAGNESIUM LEVEL 2.3 MG/DL (1.8-2.4); NT-PRO BNP 198 PG/ML (<125); POTASSIUM SERUM 4.4 MEQ/L (3.5-5.1); SODIUM LEVEL 139 MEQ/L (136-145); TOTAL PROTEIN 7.8 GM/DL (6.4-8.2); URIC ACID 4.1 MG/DL (3.5-7.2)
== END ==
LOC: M SFHCPLAZ 15:50
PROVIDERS: ATTEND Family Medicine
DX: Z12.5 Encounter for screening for malignant neoplasm of prostate (principal); N18.3 Chronic kidney disease, stage 3 (moderate); M10.9 Gout, unspecified; M47.816 Spondylosis without myelopathy or radiculopathy, lumbar region

== ENCOUNTER → 2020-02-22 | Outpatient (CLI) | payer OTHER ==
--- NOTE | 2020-02-23 05:51 | REP ---
Clinical: Recurrent urinary tract infection. Technique: Real time mckeon scale and color Doppler evaluation using curved array transducer. Findings: The bladder is normal in appearance without wall thickening or mass lesion. Prevoid bladder measures 271 ml. Postvoid bladder measures 11 ml. The right kidney is relatively normal in contour, size, echogenicity, and reniform shape without hydronephrosis, nephrolithiasis, or cystic mass lesion. Right kidney measures 10.6 x 5.4 x 5.2 cm (RI 0.62). The left kidney demonstrates mild atrophy, cortical thinning, increased central fat, and few scattered cysts measuring 2.3 cm in the upper pole and 1.0 cm in the mid pole region. No hydronephrosis, nephrolithiasis, or renal mass lesion identified. Left kidney measures 9.4 x 3.5 x 3.8 cm (RI 0.34). Impression: 1. Normal bladder and right kidney. 2. Atrophic appearance to the left kidney with increased echogenicity and few scattered simple cysts.
== END ==
LOC: M PLAIMG 13:43
PROVIDERS: ATTEND Family Medicine
DX: N39.0 Urinary tract infection, site not specified (principal)

== ENCOUNTER → 2020-03-23 | Outpatient (CLI) | payer OTHER ==
--- NOTE | 2020-03-25 04:38 | ECWPNPC ---
PATIENT NAME: MACKENZIE NÚÑEZ : 1955 GENDER: MALE VISIT DATE: 03/23/2020 DISCHARGE DATE: 03/23/20 1137 VISIT LOCKED DATE TIME: PHYSICIAN: EMMANUEL BARAJAS PHYSICIAN PAGER NO: [phone] RESOURCE: EMMANUEL BARAJAS REASON FOR APPOINTMENT 1. BACK PAIN/PRE-CALL DONE HISTORY OF PRESENT ILLNESS GENERAL: - 65-YEAR-OLD MALE IN FOR WORKER'S COMP. CHRONIC PAIN FOLLOW-UP. HE RATES HIS PAIN CURRENTLY AT A 9 OUT OF 10 AND DESCRIBES IT BURNING, CONTINUOUS, SHARP, TENDER, SORE, AND SHOOTING. HE FEELS MEDICATIONS ARE HELPFUL AND DENIES MED SIDE EFFECTS AT THIS TIME. THE PATIENT WAS HURT IN A WORK RELATED INJURY ON 04/15/2008 WHILE [facility]ING [employer] WHEN HE SLIPPED ON A WET FLOOR AND FELL CAUSING HIM TO INJURE HIS BACK. THE PATIENT SAYS HIS PAIN STARTS IN HIS LOW BACK AND RADIATES DOWN INTO HIS LEGS. THE PATIENT HAS HAD FOUR BACK SURGERIES AND REPORTS HAVING COMPLICATIONS DURING THE MOST RECENT SURGERY BECAUSE THEY WENT IN THROUGH HIS FRONT. THE PATIENT SAYS HE HAS BEEN USING A WHEELCHAIR SINCE THE LAST SURGERY. THE PATIENT IS CURRENTLY USING OXYCODONE NEEDED TO AID IN PAIN RELIEF. FALL RISK SCREENING: SCREENING :NO FALLS REPORTED IN THE LAST YEAR PAIN SCREENING: PATIENT HAS A COMPLAINT OF ACUTE OR CHRONIC PAIN :YES LOCATION OF PAIN:LOW BACK, LEG(S) RIGHT LOW BACK DOWN RIGHT LEG AND FOOT INTENSITY OF PAIN (SCALE OF 1 TO 10):9 WHAT DOES YOUR PAIN FEEL LIKE:BURNING, CONTINOUS, SHARP, TENDER, SORE, SHOOTING "HARD PAIN" DURATION:CONTINOUS, CONSTANT, STEADY, ALL DAY, AWAKENS FROM SLEEP PAIN IS INCREASED BY: NOTHING IN PARTICULAR, IT IS JUST ALWAYS THERE PAIN IS DECREASED BY: PAIN MED AND MUSCLE RELAXER NURSING NOTE: -. PAIN CENTER INTAKE QUESTIONS: DO YOU HAVE A HISTORY OF MRSA? :YES [address] [facility] DO YOU TAKE A BLOOD THINNERS? :NO DO YOU HAVE ANY BLEEDING DISORDERS? :NO ANY NEW NUMBNESS OR WEAKNESS IN YOUR LEGS OR ARMS? :NO ANY PACEMAKER,DEFIBRILLATOR, OR DORSAL COLUMN STIMULATOR? :YES PACEMAKER AND DEFIBRILLATOR DO YOU HAVE ANY RASHES OR OPEN SORES? :YES COCCYX AREA HAS OPEN SORE AND SORE ON RIGHT LEG ARE YOU ALLERGIC TO IV DYE? :NO ARE YOU DIABETIC? :NO ANY NEW PROBLEMS WITH YOUR MEDICATIONS? :NO HAVE YOU RECEIVED A VACCINE IN THE PAST 30 DAYS? :NO DO YOU PLAN TO RECEIVE A VACCINE IN THE NEXT 21 DAYS? :NO DO YOU NEED ANY PRESCRIPTION? :YES OXYCODONE, SKELAXIN DO YOU TAKE ANY IMMUNOSUPPRESSIVE MEDICATIONS? :NO IS THERE A CHANCE YOU COULD BE ? :NO ARE YOU BREAST FEEDING? :NO CURRENT MEDICATIONS TAKING PAROXETINE HCL 40 MG TABLET 1 TABLET IN THE MORNING ORALLY ONCE A DAY TAKING FERROUS SULFATE 325 (65 FE) MG TABLET 1 TABLET ORALLY ONCE A DAY TAKING ASPIRIN 81 MG TABLET CHEWABLE 1 TABLET ORALLY ONCE A DAY TAKING ROSUVASTATIN CALCIUM 10 MG TABLET 1 TABLET ORALLY ONCE A DAY TAKING MIRALAX - PACKET 1 PACKET MIXED WITH 8 OUNCES OF FLUID ORALLY ONCE A DAY TAKING CERTAVITE/ANTIOXIDANTS - TABLET 1 TABLET ORALLY ONCE A DAY TAKING MAY HAVE - - LARGE NON-SKID SOCKS FOR DX=G82.21 (PARAPLEGIA) DAILY TAKING PREVAIL WET WIPES - MISCELLANEOUS DIRECTED FOR DX=G82.21 (PARAPLEGIA) DAILY TAKING GAIT/TRANSFER BELT - MISCELLANEOUS DIRECTED TAKING MAY USE 1 - BRACE FOR LEFT LOWER EXTREMITY DIRECTED DX:R27.0 DAILY CONTRACTURE OF LOWER JOINT, NOTES: FAX TO [phone] TAKING ACETOMINOPHEN-325 MG 325 MG TABLET 1 OR 2 TABS ORALLY EVERY FOUR HOURS PRN TAKING VOLTAREN 1 % GEL 4 GM TRANSDERMAL EVERY 4-HOURS NEEDED TAKING BLOOD GLUCOSE TEST - STRIP DIRECTED INTRADERMALLY BID DX: E11.9 TAKING HYDROCERIN - CREAM DIRECTED EXTERNALLY BID TO LOWER LEGS FROM KNEES DOWN TAKING FLUCONAZOLE 200 MG TABLET 2 TABLETS ORALLY DAILY TAKING GABAPENTIN 600 MG TABLET 1 TABLET ORALLY THREE TIMES DAILY TAKING SKELAXIN 800 MG TABLET 1 TABLET ORALLY THREE TIMES A DAY TAKING RECLAST 5 MG/100ML SOLUTION DIRECTED INTRAVENOUS YEARLY TAKING CARVEDILOL 6.25 MG TABLET 1 TAB ORALLY BID TAKING OXYCODONE HCL 10 MG TABLET 1 TABLET NEEDED ORALLY DAILY PRN SEVERE PAIN MDD=2 TAKING FUROSEMIDE 20 MG TABLET 1 TABLET ORALLY ONCE A DAY TAKING AMLODIPINE BESYLATE 2.5 MG TABLET 1 TAB ORALLY DAILY TAKING LANCETS MISC - MISCELLANEOUS ONE TOUCH DELICA DX: E11.9 TWICE A DAY TAKING PANTOPRAZOLE SODIUM 40 MG TABLET DELAYED RELEASE 1 TABLET ORALLY ONCE A DAY TAKING LOSARTAN POTASSIUM 25 MG TABLET 1 TABLET ORALLY EVERY MORNING NOT-TAKING IODOSORB 0.9 % GEL APPLY TO RIGHT GREAT TOE EXTERNALLY 2-3X/WEEK X 4 WEEKS DISCONTINUED ASPIRIN 81 81 MG TABLET CHEWABLE 1 TABLET ORALLY ONCE A DAY, NOTES: DUPLICATE DISCONTINUED FERROUS SULFATE 325 (65 FE) MG TABLET 1 TABLET ORALLY ONCE A DAY, NOTES: DUPLICATE DISCONTINUED ROSUVASTATIN CALCIUM 10 MG TABLET 1 TABLET ORALLY ONCE A DAY, NOTES: DUPLICATE DISCONTINUED PAROXETINE HCL 40 MG TABLET 1 TABLET IN THE MORNING ORALLY ONCE A DAY, NOTES: DUPLICATE DISCONTINUED CERTAVITE/ANTIOXIDANTS - TABLET 1 TABLET ORALLY ONCE A DAY, NOTES: DULPICATE MEDICATION LIST REVIEWED AND RECONCILED WITH THE PATIENT PAST MEDICAL HISTORY CAD, S/P AWMI POST-OP LAMINECTOMY-05/2017 VERY SMALL APICAL THROMBUS, LVEF 40%-AKINESIS OF APEX, MID ANT, MID ANTEROSEPTAL, LV DIASTOLIC DYSFX BY 05/2017 TTE-ANTECOL/07/2017 RST S ISCHEMIA BUT FOCAL/GLOBAL ABNORMALITY, LVEF 28%, HIGH RISK-JORGE/12/2017 CATH-NO SIGNIFICANT CAD-GABY/SP ICD 01/12/2018-GABY/02/19/19 TTE C LVEF 50-55%/NO JOAQUIM DYSFX-ETHAN HYPERLIPIDEMIA, 2B PAD T2DM NID COPD/EMPHYSEMA - FEV1 3.7 IN 2007, LIKELY FROM LONG-TERM HEAVY SMOKING ARON--INTOLERANT OF CPAP ED GERD CHRONIC 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 S/P EMERGENT ABDOMINAL AORTO BI-ILIAC ARTERY BYPASS GRAFT--REQUIRED 17 LITERS SALINE, 25 UNITS PRBC, 336 UNITS PLATELETS, 1 LITER FFP, 6 LITER CELL-SAVER ISCHEMIA LOWER EXTREMITIES WITH COMPARTMENT SYNDROME, REQUIRING BILAT 4 COMPATMENT FASCIOTOMIES SEPTIC SHOCK 2 PERFORATED VISCUS S/P EMERGENT LEFT COLECTOMY (C R COLOSTOMY), OPEN CHOLECYSTECTOMY, LIVER PACKING, ABTHERA REPLACMENT CHOLECYSTITIS, BILE LEAK POST CHOLECYSTECTYOMY LEFT COLECTOMY AND RT PARTIAL COLECTOMY WITH COLOSTOMY BRADYARHYTHMIA WITH CARDIAC ARREST/IWMI INFECTED AORTO BI-ILIAC BYPASS GRAFT C 2 CHRONIC DISSEMINATATED CANDIDIASIS AND S. EPIDERMIDIS BACTEREMIA ENTEROCTANEOUS FISTULAE H/O ACRODERMATITIS ENTEROPTHICA (ZINC-DEFICIENCY DERMATITIS) PROLONGED ICU/[facility] WITH TRACHEOSTOMY, SUBSEQUENT CLOSURE OF TRACH H/O STAGE 4 SACRAL DECUBITUS PSEUDOMONUS OSTEOMYELITIS HIT--HEPARIN INDUCED THROMBOCYTOPENIA H/O RECURRENT GOUT, L PODAGRA LUMBAR DJD- L3/4 MOD CCS, L4/5 MILD C GRADE 1 LITHESIS AND L L4 COMPRESSION IN NF, L5/S1 DIFFUSE BULGE C MINIMAL TS COMPRESSION BY 04/2017 CT LS SPINE RECURRENT UTI, OAB, CHRONIC PYURIA ALLERGIES REMERON: NIGHTMARES - SIDE EFFECTS WELLBUTRIN: AGITATION - SIDE EFFECTS ZOLOFT: DIARRHEA - SIDE EFFECTS PROZAC: DEPRESSION - SIDE EFFECTS SURGICAL HISTORY APPENDECTOMY RIH LEFT ELBOW ULNAR NERVE TRANSPOSITION LUMBAR SPINAL FUSION 04/24 COLONOSCOPY--NL 11/17 REMOVAL SCREWS, RODS LUMBAR SPINE, BONE GRAFTING 06/25 EXP LAPAROTOMY, LEFT COLECTOMY, RIGHT COLOSTOMY 2013 ABORTED L4-L5 DISCECTOMY COMPLICATED BY INTRAOPERATIVE ILIAC VEIN AND AORTIC PERFORATION 07/2014 TRACHEOSTOMY 07/2014 CHOLECYSTECTOMY, SECONDARY TO BILE LEAK 07/2014 BILATERAL LOWER EXTREMITY FASCIOTOMIES R/T COMPARTMENT SYNDROME 07/29 DEFIBRILATOR PLACEMENT (R) SIDE 01/08/18 NEW PACEMAKER WIRE 06/05/18 CIRCUMCISION 2 PHIMOSIS/RECURRENT UTI-TASHI 10/01/2018 FAMILY HISTORY FATHER: , LUNG CANCER, DIAGNOSED WITH OTHER MALIGNANT NEOPLASM OF UNSPECIFIED SITE MOTHER: , DIABETES, TYPE II, DIABETES, OTHER SPECIFIED CONDITIONS INFLUENCING HEALTH STATUS SIBLINGS: DIABETES, TYPE II, UNSPECIFIED HEART DISEASE, DIABETES 6 BROTHER(S) , 5 SISTER(S) . MOM WITH COPD, CHF. BROTHER WITH HEART DISEASE, DIABETES. SOCIAL HISTORY GENERAL: TOBACCO USE ARE YOU A:CURRENT SMOKER ARE YOU INTERESTED IN QUITTING?NOT READY TO QUIT COUNSELED THE PATIENT ON SMOKING EFFECTS, EDUCATION [id number]/01/2020 HOW MANY CIGARETTES A DAY DO YOU SMOKE?6-10 HOW SOON AFTER YOU WAKE UP DO YOU SMOKE YOUR FIRST CIGARETTE?AFTER 60 MIN HOW OFTEN DO YOU SMOKE CIGARETTES?EVERY DAY PATIENT COUNSELED ON THE DANGERS OF TOBACCO USE AND URGED TO QUIT:03/22/2020 SMOKING CESSATION INFORMATION GIVEN02/14/2020 LATEX QUESTIONNAIRE LATEX ALLERGY : HAVE YOU EVER DEVELOPED ANY TYPE OF REACTION AFTER HANDLING LATEX PRODUCTS SUCH RUBBER GLOVES, CONDOMS, DIAPHRAGMS, BALLOONS, SOCKS, OR UNDERWEAR?NO LATEX ALLERGY : HAVE YOU EVER DEVELOPED ANY TYPE OF REACTION DURING OR AFTER DENTAL APPOINTMENT, VAGINAL/RECTAL EXAMINATION, SURGICAL PROCEDURE, OR ANY OTHER EXPOSURE?NO LATEX RISK : HAVE YOU EVER HAD ANY DIFFICULTY BREATHING OR HIVES AFTER EATING OR HANDLING ANY FRUITS, OR VEGETABLES; SUCH KIWI, BANANAS, STONE FRUITS, OR CHESTNUTSNO LATEX RISK : DO YOU HAVE A PREVIOUS PERSONAL HISTORY OF MORE THAN NINE SURGERIES, SPINA BIFIDA, OR REPEATED CATHERIZATIONS? YES - PLEASE INDICATE : > 9 SURGERIES LATEX RISK : ARE YOU FREQUENTLY EXPOSED TO LATEX PRODUCTS IN YOUR OCCUPATION?NO DATE ASKED : 03/22/2020 BMI CARE GOAL FOLLOW-UP ABOVE NORMAL BMI FOLLOW-UPGIVING ENCOURAGEMENT TO EXERCISE ALCOHOL SCREENING POINTS: 0, INTERPRETATION: NEGATIVE. RECREATIONAL DRUG USE DENIES. CAFFEINE CAFFEINE USE?YES 2 CUPS PER DAY HIV / HEP-C SCREENING HIV TEST OFFERED TO PATIENT:YES DATE OFFERED:10/19/2019 TEST ACCEPTED:NO HEP-C TEST OFFERED TO PATIENT:YES DATE OFFERED:10/19/2019 REASON:PATIENT DECLINED TEST ACCEPTED:NO REASON:PATIENT DECLINED BROCHURE PROVIDED TO PATIENTYES ANGLICAN [id number] WORSHIP LANGUAGE LANGUAGES SPOKEN:[place] EDUCATION LEVEL OF EDUCATION:NOT FINISHED COLLEGE 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, 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 DIET: REGULAR. EXERCISE: WALKING. MARITAL STATUS: -MATEO. NEW PATIENT PAIN DIARY PATIENT DESCRIBES PAIN : HAVE IT ALL THE TIME, SHARP, FROM 0-10, WHAT LEVEL IS YOUR PAIN TODAY? 10, PRECIPITATING FACTORS WORSE WITH ACTIVITY, ALLEVIATING FACTORS PAIN MEDS. PAIN CLINIC PFS, CLERGY, PUBLIC HEALTH REFERRALS HAS THE PATIENT BEEN EDUCATED REGARDING HIS/HER PLAN OF CARE?YES HAS THE PATIENT BEEN EDUCATED REGARDING PAIN, THE RISK FOR PAIN, THE IMPORTANCE OF EFFECTIVE PAIN MANAGEMENT, AND THE PAIN ASSESSMENT PROCESS?YES ADVANCE DIRECTIVE ADVANCE DIRECTIVE DISCUSSED WITH PATIENT:YES PATIENT STATES HE HAS POA- MATEO AND HE THISNKS HE HAS [id number] ([phone]) HOSPITALIZATION/MAJOR DIAGNOSTIC PROCEDURE COMPLICATIONS FOLLOWING ATTEMPTED LS SPINE SURGERY 07/18/14-05/17/15 SBO, UTI, INFLUENZA-RESOLVED C NGT 09/2015 BOWEL OBSTRUCTION DECEMBER/2016 ABORTED L4-5 DISKECTOMY, COMPLIACTED BY INTRAOPERATIVE ILIACVEIN AND AORTIC PERFORATION 07/29 BILAT LOWER EXT FASCIOTOMIES (COMPARTMENT SYNDROME) 07/29 EXP LAPAROTOMY, LEFT COLECTOMY, RIGHT COLOSTOMY 07/29 OPEN CHOLECYTECTOMY, SECONADRY BILE LEAK 07/29 TRACHEOSTOMY 07/29 REMOVAL INFECTED AORTOBIFEMORAL GRAFT, INSERTION OF SECOND ABF GRAFT 08/28 TEMPORARY PACEMAKER 08/28 ERCP, SPHICTEROTOMY, BILARY STENT PLACEMENT 09/29 FIRST OF SEVERAL SACRAL DECUB DEBRIDEMENTS 11/27 EGD--BILIARY STENT REMOVED 11/27 TRACH REMOVAL/CLOSURE 03/29 SMC-ELEVATED INR 7.9 C BLEEDING AT OSTOMY SITE 04/19-05/01 HOSPITALIZED FOR DEFIBRILATOR PLACEMENT 01/08/18-01/20/18 NEW PACEMAKER WIRE 06/04/18 SYNCOPE 2 SB TO 40S, CARVE DECREASED 25 BID TO 6.25 BID 02/18-06/03 REVIEW OF SYSTEMS CONSTITUTIONAL: ANY RECENT FEVER NO . CHILLS NO . WEIGHT CHANGE OF UNKNOWN REASONS NO . GASTROENTEROLOGY: NEW UNEXPLAINABLE CHANGES IN BOWEL CONTROL NO . CONSTIPATION NO . GENITOURINARY: ANY NEW CHANGE IN BLADDER CONTROL? NO . NEUROLOGY: NEW ONSET DIZZINESS OR NEUROLOGICAL CHANGES NOT MENTIONED NO . NEW NUMBNESS OR PAIN PATTERNS NOT MENTIONED AND PERTINENT TO TODAY'S VISIT NO . CARDIOLOGY: NEW CHEST PRESSURE NO . NEW CHEST PAIN NO . RESPIRATORY: UNEXPLAINABLE COUGH NO . NEW SHORTNESS OF BREATH NO . VITAL SIGNS WT 190.4 LBS, HT 69 IN, BMI 28.11 INDEX, BP 129/68 MM HG, HR 54 /MIN, RR 18 /MIN, TEMP 96.8 F, OXYGEN SAT % 95, BLOOD GLUCOSE LEVEL 200 YESTERDAY, SAFE IN ENV? 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 EXAMINATION GENERAL EXAMINATION: GENERALNO ACUTE DISTRESS, WELL NOURISHED AND HYDRATED. PSYCHAPPROPRIATE MOOD AND AFFECT . LUNGS:CLEAR TO AUSCULTATION BILATERALLY, NO WHEEZES, RHONCHI, RALES. HEART:NO MURMURS, REGULAR RATE AND RHYTHM. 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 CHRONIC PAIN FOLLOW-UP. GIVEN PRESENTING SYMPTOMS RECOMMEND CONTINUATION OF CURRENT MEDICATION REGIMEN WITH FOLLOW-UP IN 3 MONTHS. PATIENT HAS EXPRESSED UNDERSTANDING OF AND WAS IN AGREEMENT WITH TREATMENT PLAN. GIVEN TIME TO ASK QUESTIONS AND EXPRESS CONCERNS. , ISTOP REGISTRY REVIEWED AND DEMONSTRATES COMPLLIANCE. (REF # ) BRINGS IN MEDICATIONS WHICH IS APPROPRIATE FOR WHAT WAS DISPENSED. RECENT URINE TOXICOLOGY REVIEWED. NO UNAUTHORIZED MEDICATIONS. NO ILLICIT SUBSTANCES AND PRESCRIBED MEDICATIONS WERE PRESENT. PROCEDURES PN WORKMANS' COMP OPINION IN YOUR OPINION, WAS THE INCIDENT THAT THE PATIENT DESCRIBED THE COMPETENT MEDICAL CAUSE OF THIS INJURY/ILLNESS? YES ARE THE PATIENT'S COMPLAINTS CONSISTENT WITH HIS/HER HISTORY OF THE INJURY/ILLNESS? YES IS THE PATIENT'S HISTORY OF THE INJURY/ILLNESS CONSISTENT WITH YOUR OBJECTIVE FINDING? YES WHAT IS THE PERCENTAGE OF TEMPORARY IMPAIRMENT? TOTAL = 100% IS THE PATIENT WORKING? NO DOCTOR ON SITE: LUX CARPIO MD PROCEDURE CODES FA211 ESTABILISHED PATIENT [facility] FACILITY CHARGE DISPOSITION & COMMUNICATION FOLLOW UP 3 MONTHS (REASON: BACK PAIN) ELECTRONICALLY SIGNED BY KAELA JUNIOR ON 03/24/2020 AT 08:11 AM EDT DISCLAIMER : THIS IS A VISIT SUMMARY EXTRACTED FROM THE [employer] CHART. IT IS NOT A COPY OF THE [employer] PROGRESS NOTE. MARIAELENA
== END ==
LOC: M PAIN 11:00
PROVIDERS: ATTEND Family Medicine
DX: M96.1 Postlaminectomy syndrome, not elsewhere classified (principal)

== ENCOUNTER → 2020-06-22 | Outpatient (CLI) | payer OTHER ==
[~2020-06-22] MED LIST changes: +PANT40TA29 PO; -PANT40TA3 PO
--- NOTE | 2020-06-23 12:50 | ECWPNPC ---
PATIENT NAME: MACKENZIE NÚÑEZ : 1955 GENDER: MALE VISIT DATE: 06/22/2020 DISCHARGE DATE: 06/22/20 1058 VISIT LOCKED DATE TIME: PHYSICIAN: EMMANUEL BARAJAS PHYSICIAN PAGER NO: ACTIVE RESOURCE: EMMANUEL BARAJAS REASON FOR APPOINTMENT 1. BACK PAIN HISTORY OF PRESENT ILLNESS GENERAL: - 65-YEAR-OLD MALE IN FOR WORKER'S COMP. CHRONIC PAIN FOLLOW-UP. HE RATES HIS PAIN CURRENTLY AT AN 8 OUT OF 10 AND DESCRIBES IT SHARP. HE FEELS THE MEDICATIONS ARE HELPFUL AND DENIES MED SIDE EFFECTS AT THIS TIME. THE PATIENT WAS HURT IN A WORK RELATED INJURY ON 04/15/2008 WHILE WORKING [employer]URN[employer]AIN[employer] WHEN HE SLIPPED ON A WET FLOOR AND FELL CAUSING HIM TO INJURE HIS BACK. THE PATIENT SAYS HIS PAIN STARTS IN HIS LOW BACK AND RADIATES DOWN INTO HIS LEGS. THE PATIENT HAS HAD FOUR BACK SURGERIES AND REPORTS HAVING COMPLICATIONS DURING THE MOST RECENT SURGERY BECAUSE THEY WENT IN THROUGH HIS FRONT. THE PATIENT SAYS HE HAS BEEN USING A WHEELCHAIR SINCE THE LAST SURGERY. THE PATIENT IS CURRENTLY USING OXYCODONE NEEDED TO AID IN PAIN RELIEF. FALL RISK SCREENING: SCREENING :NO FALLS REPORTED IN THE LAST YEAR PAIN SCREENING: PATIENT HAS A COMPLAINT OF ACUTE OR CHRONIC PAIN :YES LOCATION OF PAIN:LOW BACK, RIGHT HIP, LEG(S) RIGHT LEG INTENSITY OF PAIN (SCALE OF 1 TO 10):8 WHAT DOES YOUR PAIN FEEL LIKE:SHARP DURATION:CONTINOUS, AWAKENS FROM SLEEP PAIN IS INCREASED BY:ACTIVITIES PAIN IS DECREASED BY:USE OF PAIN MEDICATIONS OXYCODONE HELPS TO REDUCE PAIN. NURSING NOTE: -. PAIN CENTER INTAKE QUESTIONS: DO YOU HAVE A HISTORY OF MRSA? :NO DO YOU TAKE A BLOOD THINNERS? :NO DO YOU HAVE ANY BLEEDING DISORDERS? :NO ANY NEW NUMBNESS OR WEAKNESS IN YOUR LEGS OR ARMS? :NO ANY PACEMAKER,DEFIBRILLATOR, OR DORSAL COLUMN STIMULATOR? :YES PATIENT HAS AFIB PACEMAKER AND DEFIBRILLLATOR. DO YOU HAVE ANY RASHES OR OPEN SORES? :YES OPEN SORES AROUND LOWER CENTER BACK. ARE YOU ALLERGIC TO IV DYE? :NO ARE YOU DIABETIC? :NO ANY NEW PROBLEMS WITH YOUR MEDICATIONS? :NO HAVE YOU RECEIVED A VACCINE IN THE PAST 30 DAYS? :NO DO YOU PLAN TO RECEIVE A VACCINE IN THE NEXT 21 DAYS? :YES PATIENT PLANS TO GET A FLU SHOT WITH HIS DOCTOR LATER THIS MONTH. DO YOU NEED ANY PRESCRIPTION? :YES OXYCODONE DO YOU TAKE ANY IMMUNOSUPPRESSIVE MEDICATIONS? :NO IS THERE A CHANCE YOU COULD BE ? :NO ARE YOU BREAST FEEDING? :NO CURRENT MEDICATIONS TAKING PAROXETINE HCL 40 MG TABLET 1 TABLET IN THE MORNING ORALLY ONCE A DAY TAKING FERROUS SULFATE 325 (65 FE) MG TABLET 1 TABLET ORALLY ONCE A DAY TAKING ASPIRIN 81 MG TABLET CHEWABLE 1 TABLET ORALLY ONCE A DAY TAKING ROSUVASTATIN CALCIUM 10 MG TABLET 1 TABLET ORALLY ONCE A DAY TAKING MIRALAX - PACKET 1 PACKET MIXED WITH 8 OUNCES OF FLUID ORALLY ONCE A DAY TAKING CERTAVITE/ANTIOXIDANTS - TABLET 1 TABLET ORALLY ONCE A DAY TAKING MAY HAVE - - LARGE NON-SKID SOCKS FOR DX=G82.21 (PARAPLEGIA) DAILY TAKING PREVAIL WET WIPES - MISCELLANEOUS DIRECTED FOR DX=G82.21 (PARAPLEGIA) DAILY TAKING GAIT/TRANSFER BELT - MISCELLANEOUS DIRECTED TAKING MAY USE 1 - BRACE FOR LEFT LOWER EXTREMITY DIRECTED DX:R27.0 DAILY CONTRACTURE OF LOWER JOINT, NOTES: FAX TO [phone] TAKING ACETOMINOPHEN-325 MG 325 MG TABLET 1 OR 2 TABS ORALLY EVERY FOUR HOURS PRN TAKING VOLTAREN 1 % GEL 4 GM TRANSDERMAL EVERY 4-HOURS NEEDED TAKING BLOOD GLUCOSE TEST - STRIP DIRECTED INTRADERMALLY BID DX: E11.9 TAKING HYDROCERIN - CREAM DIRECTED EXTERNALLY BID TO LOWER LEGS FROM KNEES DOWN TAKING FLUCONAZOLE 200 MG TABLET 2 TABLETS ORALLY DAILY TAKING GABAPENTIN 600 MG TABLET 1 TABLET ORALLY THREE TIMES DAILY TAKING SKELAXIN 800 MG TABLET 1 TABLET ORALLY THREE TIMES A DAY TAKING RECLAST 5 MG/100ML SOLUTION DIRECTED INTRAVENOUS YEARLY TAKING CARVEDILOL 6.25 MG TABLET 1 TAB ORALLY BID TAKING AMLODIPINE BESYLATE 2.5 MG TABLET 1 TAB ORALLY DAILY TAKING LANCETS - MISCELLANEOUS ONE TOUCH DELICA DX: E11.9 TWICE A DAY TAKING PANTOPRAZOLE SODIUM 40 MG TABLET DELAYED RELEASE 1 TABLET ORALLY ONCE A DAY TAKING LOSARTAN POTASSIUM 25 MG TABLET 1 TABLET ORALLY EVERY MORNING TAKING OXYCODONE HCL 10 MG TABLET 1 TABLET NEEDED ORALLY DAILY PRN SEVERE PAIN MDD=2 NOT-TAKING FUROSEMIDE 20 MG TABLET 1 TABLET ORALLY ONCE A DAY NOT-TAKING IODOSORB 0.9 % GEL APPLY TO RIGHT GREAT TOE EXTERNALLY 2-3X/WEEK X 4 WEEKS MEDICATION LIST REVIEWED AND RECONCILED WITH THE PATIENT PAST MEDICAL HISTORY CAD, S/P AWMI POST-OP LAMINECTOMY-05/2017 VERY SMALL APICAL THROMBUS, LVEF 40%-AKINESIS OF APEX, MID ANT, MID ANTEROSEPTAL, LV DIASTOLIC DYSFX BY 05/2017 TTE-ANTECOL/07/2017 RST S ISCHEMIA BUT FOCAL/GLOBAL ABNORMALITY, LVEF 28%, HIGH RISK-SLEZKA/12/2017 CATH-NO SIGNIFICANT CAD-GABY/SP ICD 01/12/2018-GABY/02/19/19 TTE C LVEF 50-55%/NO JOAQUIM DYSFX-ETHAN HYPERLIPIDEMIA, 2B PAD T2DM NID COPD/EMPHYSEMA - FEV1 3.7 IN 2007, LIKELY FROM LONG-TERM HEAVY SMOKING ARON--INTOLERANT OF CPAP ED GERD CHRONIC 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 S/P EMERGENT ABDOMINAL AORTO BI-ILIAC ARTERY BYPASS GRAFT--REQUIRED 17 LITERS SALINE, 25 UNITS PRBC, 336 UNITS PLATELETS, 1 LITER FFP, 6 LITER CELL-SAVER ISCHEMIA LOWER EXTREMITIES WITH COMPARTMENT SYNDROME, REQUIRING BILAT 4 COMPATMENT FASCIOTOMIES SEPTIC SHOCK 2 PERFORATED VISCUS S/P EMERGENT LEFT COLECTOMY (C R COLOSTOMY), OPEN CHOLECYSTECTOMY, LIVER PACKING, ABTHERA REPLACMENT CHOLECYSTITIS, BILE LEAK POST CHOLECYSTECTYOMY LEFT COLECTOMY AND RT PARTIAL COLECTOMY WITH COLOSTOMY BRADYARHYTHMIA WITH CARDIAC ARREST/IWMI INFECTED AORTO BI-ILIAC BYPASS GRAFT C 2 CHRONIC DISSEMINATATED CANDIDIASIS AND S. EPIDERMIDIS BACTEREMIA ENTEROCTANEOUS FISTULAE H/O ACRODERMATITIS ENTEROPTHICA (ZINC-DEFICIENCY DERMATITIS) [facility] TRACHEOSTOMY, SUBSEQUENT CLOSURE OF TRACH H/O STAGE 4 SACRAL DECUBITUS PSEUDOMONUS OSTEOMYELITIS HIT--HEPARIN INDUCED THROMBOCYTOPENIA H/O RECURRENT GOUT, L PODAGRA LUMBAR DJD- L3/4 MOD CCS, L4/5 MILD C GRADE 1 LITHESIS AND L L4 COMPRESSION IN NF, L5/S1 DIFFUSE BULGE C MINIMAL TS COMPRESSION BY 04/2017 CT LS SPINE RECURRENT UTI, OAB, CHRONIC PYURIA ALLERGIES REMERON: NIGHTMARES - SIDE EFFECTS WELLBUTRIN: AGITATION - SIDE EFFECTS ZOLOFT: DIARRHEA - SIDE EFFECTS PROZAC: DEPRESSION - SIDE EFFECTS SURGICAL HISTORY APPENDECTOMY RIH LEFT ELBOW ULNAR NERVE TRANSPOSITION LUMBAR SPINAL FUSION 04/24 COLONOSCOPY--NL 11/17 REMOVAL SCREWS, RODS LUMBAR SPINE, BONE GRAFTING 06/25 EXP LAPAROTOMY, LEFT COLECTOMY, RIGHT COLOSTOMY 2013 ABORTED L4-L5 DISCECTOMY COMPLICATED BY INTRAOPERATIVE ILIAC VEIN AND AORTIC PERFORATION 07/2014 TRACHEOSTOMY 07/2014 CHOLECYSTECTOMY, SECONDARY TO BILE LEAK 07/2014 BILATERAL LOWER EXTREMITY FASCIOTOMIES R/T COMPARTMENT SYNDROME 07/29 DEFIBRILATOR PLACEMENT (R) SIDE 01/08/18 NEW PACEMAKER WIRE 06/05/18 CIRCUMCISION 2 PHIMOSIS/RECURRENT UTI-TASHI 10/01/2018 FAMILY HISTORY FATHER: , LUNG CANCER, DIAGNOSED WITH OTHER MALIGNANT NEOPLASM OF UNSPECIFIED SITE MOTHER: , DIABETES, TYPE II, DIABETES, OTHER SPECIFIED CONDITIONS INFLUENCING HEALTH STATUS SIBLINGS: DIABETES, TYPE II, DIABETES, UNSPECIFIED HEART DISEASE 6 BROTHER(S) , 5 SISTER(S) . MOM WITH COPD, CHF. BROTHER WITH HEART DISEASE, DIABETES. SOCIAL HISTORY GENERAL: TOBACCO USE ARE YOU A:CURRENT SMOKER ARE YOU INTERESTED IN QUITTING?NOT READY TO QUIT COUNSELED THE PATIENT ON SMOKING EFFECTS, EDUCATION [id number]/08/2020 HOW MANY CIGARETTES A DAY DO YOU SMOKE?6-10 HOW SOON AFTER YOU WAKE UP DO YOU SMOKE YOUR FIRST CIGARETTE?AFTER 60 MIN HOW OFTEN DO YOU SMOKE CIGARETTES?EVERY DAY PATIENT COUNSELED ON THE DANGERS OF TOBACCO USE AND URGED TO QUIT:06/22/2020 SMOKING CESSATION INFORMATION GIVEN02/14/2020 LATEX QUESTIONNAIRE LATEX ALLERGY : HAVE YOU EVER DEVELOPED ANY TYPE OF REACTION AFTER HANDLING LATEX PRODUCTS SUCH RUBBER GLOVES, CONDOMS, DIAPHRAGMS, BALLOONS, SOCKS, OR UNDERWEAR?NO LATEX ALLERGY : HAVE YOU EVER DEVELOPED ANY TYPE OF REACTION DURING OR AFTER DENTAL APPOINTMENT, VAGINAL/RECTAL EXAMINATION, SURGICAL PROCEDURE, OR ANY OTHER EXPOSURE?NO LATEX RISK : HAVE YOU EVER HAD ANY DIFFICULTY BREATHING OR HIVES AFTER EATING OR HANDLING ANY FRUITS, OR VEGETABLES; SUCH KIWI, BANANAS, STONE FRUITS, OR CHESTNUTSNO LATEX RISK : DO YOU HAVE A PREVIOUS PERSONAL HISTORY OF MORE THAN NINE SURGERIES, SPINA BIFIDA, OR REPEATED CATHERIZATIONS? YES - PLEASE INDICATE : > 9 SURGERIES LATEX RISK : ARE YOU FREQUENTLY EXPOSED TO LATEX PRODUCTS IN YOUR OCCUPATION?NO DATE ASKED : 06/22/2020 BMI CARE GOAL FOLLOW-UP ABOVE NORMAL BMI FOLLOW-UPGIVING ENCOURAGEMENT TO EXERCISE ALCOHOL SCREENING POINTS: 0, INTERPRETATION: NEGATIVE. RECREATIONAL DRUG USE DENIES. CAFFEINE CAFFEINE USE?YES 2 CUPS PER DAY HIV / HEP-C SCREENING HIV TEST OFFERED TO PATIENT:YES DATE OFFERED:10/19/2019 TEST ACCEPTED:NO HEP-C TEST OFFERED TO PATIENT:YES DATE OFFERED:10/19/2019 REASON:PATIENT DECLINED TEST ACCEPTED:NO REASON:PATIENT DECLINED BROCHURE PROVIDED TO PATIENTYES CATHOLIC [id number] MANDAEN LANGUAGE LANGUAGES SPOKEN:CZECH EDUCATION LEVEL OF EDUCATION:NOT FINISHED COLLEGE 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, WHEELCHAIR ELECTRIC SCOOTER SOCK BOARDER NEEDED?NO DOMESTIC VIOLENCE DO YOU FEEL SAFE IN YOUR ENVIRONMENT?YES OCCUPATION: DISABLED 04/22 FROM [employer] DEPT. DIET: REGULAR. EXERCISE: WALKING. MARITAL STATUS: -MATEO. NEW PATIENT PAIN DIARY PATIENT DESCRIBES PAIN : HAVE IT ALL THE TIME, SHARP, FROM 0-10, WHAT LEVEL IS YOUR PAIN TODAY? 10, PRECIPITATING FACTORS WORSE WITH ACTIVITY, ALLEVIATING FACTORS PAIN MEDS. PAIN CLINIC PFS, CLERGY, PUBLIC HEALTH REFERRALS HAS THE PATIENT BEEN EDUCATED REGARDING HIS/HER PLAN OF CARE?YES HAS THE PATIENT BEEN EDUCATED REGARDING PAIN, THE RISK FOR PAIN, THE IMPORTANCE OF EFFECTIVE PAIN MANAGEMENT, AND THE PAIN ASSESSMENT PROCESS?YES ADVANCE DIRECTIVE ADVANCE DIRECTIVE DISCUSSED WITH PATIENT:YES PATIENT STATES HE HAS POA- MATEO AND HE THISNKS HE HAS [id number] ([phone]) HOSPITALIZATION/MAJOR DIAGNOSTIC PROCEDURE COMPLICATIONS FOLLOWING ATTEMPTED LS SPINE SURGERY 07/18/14-05/17/15 SBO, UTI, INFLUENZA-RESOLVED C NGT 09/2015 BOWEL OBSTRUCTION DECEMBER/2016 ABORTED L4-5 DISKECTOMY, COMPLIACTED BY INTRAOPERATIVE ILIACVEIN AND AORTIC PERFORATION 07/29 BILAT LOWER EXT FASCIOTOMIES (COMPARTMENT SYNDROME) 07/29 EXP LAPAROTOMY, LEFT COLECTOMY, RIGHT COLOSTOMY 07/29 OPEN CHOLECYTECTOMY, SECONADRY BILE LEAK 07/29 TRACHEOSTOMY 07/29 REMOVAL INFECTED AORTOBIFEMORAL GRAFT, INSERTION OF SECOND ABF GRAFT 08/28 TEMPORARY PACEMAKER 08/28 ERCP, SPHICTEROTOMY, BILARY STENT PLACEMENT 09/29 FIRST OF SEVERAL SACRAL DECUB DEBRIDEMENTS 11/27 EGD--BILIARY STENT REMOVED 11/27 TRACH REMOVAL/CLOSURE 03/29 [facility] IN[facility] 7.9 C BLEEDING AT OSTOMY SITE 04/19-05/01 HOSPITALIZED FOR DEFIBRILATOR PLACEMENT 01/08/18-01/20/18 NEW PACEMAKER WIRE 06/04/18 SYNCOPE 2 SB TO 40S, CARVE DECREASED 25 BID TO 6.25 BID 02/18-06/03 REVIEW OF SYSTEMS CONSTITUTIONAL: ANY RECENT FEVER NO . CHILLS NO . WEIGHT CHANGE OF UNKNOWN REASONS NO . GASTROENTEROLOGY: NEW UNEXPLAINABLE CHANGES IN BOWEL CONTROL NO . CONSTIPATION NO . GENITOURINARY: ANY NEW CHANGE IN BLADDER CONTROL? NO . NEUROLOGY: NEW ONSET DIZZINESS OR NEUROLOGICAL CHANGES NOT MENTIONED NO . NEW NUMBNESS OR PAIN PATTERNS NOT MENTIONED AND PERTINENT TO TODAY'S VISIT NO . CARDIOLOGY: NEW CHEST PRESSURE NO . NEW CHEST PAIN NO . RESPIRATORY: UNEXPLAINABLE COUGH NO . NEW SHORTNESS OF BREATH NO . VITAL SIGNS WT 188.4 LBS, HT 69 IN, BMI 27.82 INDEX, BP 116/59 MM HG, HR 67 /MIN, RR 18 /MIN, TEMP 97.6 F, OXYGEN SAT % 95%, NA INITIALS SC 10:22, REVIEWED BY: [facility]. EXAMINATION GENERAL EXAMINATION: GENERALNO ACUTE DISTRESS, WELL NOURISHED AND HYDRATED. PSYCHAPPROPRIATE MOOD AND AFFECT . LUNGS:DECREASED BILATERALLY. HEART:NO MURMURS, REGULAR RATE AND RHYTHM. 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 CHRONIC PAIN FOLLOW-UP. GIVEN PRESENTING SYMPTOMS RECOMMEND CONTINUATION OF CURRENT MEDICATION REGIMEN WITH FOLLOW-UP IN 3 MONTHS. PATIENT HAS EXPRESSED UNDERSTANDING OF AND WAS IN AGREEMENT WITH TREATMENT PLAN. GIVEN TIME TO ASK QUESTIONS AND EXPRESS CONCERNS. , ISTOP REGISTRY REVIEWED AND DEMONSTRATES COMPLLIANCE. (REF #[id number] ) BRINGS IN MEDICATIONS WHICH IS APPROPRIATE FOR WHAT WAS DISPENSED. RECENT URINE TOXICOLOGY REVIEWED. NO UNAUTHORIZED MEDICATIONS. NO ILLICIT SUBSTANCES AND PRESCRIBED MEDICATIONS WERE PRESENT. LUMBAR SPONDYLOSIS REFILL OXYCODONE HCL TABLET, 10 MG, 1 TABLET NEEDED, ORALLY, DAILY PRN SEVERE PAIN MDD=2, 30 DAYS, 45 PROCEDURES PN WORKMANS' COMP OPINION IN YOUR OPINION, WAS THE INCIDENT THAT THE PATIENT DESCRIBED THE COMPETENT MEDICAL CAUSE OF THIS INJURY/ILLNESS? YES ARE THE PATIENT'S COMPLAINTS CONSISTENT WITH HIS/HER HISTORY OF THE INJURY/ILLNESS? YES IS THE PATIENT'S HISTORY OF THE INJURY/ILLNESS CONSISTENT WITH YOUR OBJECTIVE FINDING? YES WHAT IS THE PERCENTAGE OF TEMPORARY IMPAIRMENT? TOTAL = 100% IS THE PATIENT WORKING? NO DOCTOR ON SITE: LUX CARPIO MD PREVENTIVE MEDICINE PAIN CLINIC TEACHING: THE PATIENT HAS BEEN EDUCATED REGARDING PAIN, THE RISK FOR PAIN, THE IMPORTANCE OF EFFECTIVE PAIN MANAGEMENT, AND THE PAIN ASSESSMENT PROCESS. : REVIEWED MEDICATION AND PATIENT CARE PLAN. PATIENT EXPRESSED UNDERSTANDING. PATIENT WAS GIVE A NARCOTIC AGREEMENT AND A URINE UTOX SCREEN. - [facility] PROCEDURE CODES FA211 ESTABILISHED PATIENT [facility]POS[facility] & COMMUNICATION FOLLOW UP 3 MONTHS (REASON: BACK PAIN WORKERS COMP ) ELECTRONICALLY SIGNED BY KAELA JUNIOR ON 06/23/2020 AT 12:48 PM EDT DISCLAIMER : THIS IS A VISIT SUMMARY EXTRACTED FROM THE [employer] CHART. IT IS NOT A COPY OF THE [employer] PROGRESS NOTE. MARIAELENA
== END ==
LOC: M PAIN 10:15
PROVIDERS: ATTEND Family Medicine
DX: M96.1 Postlaminectomy syndrome, not elsewhere classified (principal); M47.816 Spondylosis without myelopathy or radiculopathy, lumbar region; E78.5 Hyperlipidemia, unspecified; E11.9 Type 2 diabetes mellitus without complications; J44.9 Chronic obstructive pulmonary disease, unspecified; G47.33 Obstructive sleep apnea (adult) (pediatric); K21.9 Gastro-esophageal reflux disease without esophagitis; F17.210 Nicotine dependence, cigarettes, uncomplicated; Z86.59 Personal history of other mental and behavioral disorders; Z95.0 Presence of cardiac pacemaker; Z88.8 Allergy status to other drugs, medicaments and biological substances; Z79.82 Long term (current) use of aspirin; Z79.899 Other long term (current) drug therapy

== ENCOUNTER → 2020-07-11 | Outpatient (REF) | payer OTHER ==
[2020-07-11 15:21] LABS: BASO # 0.1 10^3/uL (0.0-0.2); BASO % 0.4 % (0.0-1.0); EOS # 0.2 10^3/uL (0.0-0.5); EOS % 1.8 % (0.0-3.0); HEMATOCRIT 44.6 % (42.0-52.0); LYMPH # 1.2 10^3/uL (1.5-5.0); LYMPH % 10.6 % (24.0-44.0); MEAN CORPUSCULAR HEMOGLOBIN 30.9 pg (27.0-33.0); MEAN CORPUSCULAR HGB CONC 31.4 g/dl (32.0-36.5); MEAN CORPUSCULAR VOLUME 98.5 fl (80.0-96.0); MONO % 8.3 % (0.0-5.0); NEUTROPHILS # 9.1 10^3/uL (1.5-8.5); NEUTROPHILS % 78.5 % (36.0-66.0); PLATELET COUNT, AUTOMATED 220 10^3/uL (150-450); RED BLOOD COUNT 4.53 10^6/uL (4.30-6.10); WHITE BLOOD COUNT 11.6 10^3/uL (4.0-10.0)
[2020-07-11 15:30] LABS: APPEARANCE, URINE CLOUDY (CLEAR); BACTERIA, URINE AUTO 2+ (NEGATIVE); BILIRUBIN, URINE AUTO NEGATIVE (NEGATIVE); BLOOD, URINE BLOOD NEGATIVE (NEGATIVE); COLOR, URINE YELLOW (YELLOW); GLUCOSE, URINE (UA) AUTO 3+ mg/dL (NEGATIVE); KETONE, URINE AUTO NEGATIVE (NEGATIVE); LEUKOCYTE ESTERASE, URINE AUTO 3+ (NEGATIVE); MUCUS, URINE SMALL (NEGATIVE); NITRITE, URINE AUTO NEGATIVE (NEGATIVE); PROTEIN, URINE AUTO NEGATIVE (NEGATIVE); RBC, URINE AUTO 6 /HPF (0-3); SPECIFIC GRAVITY URINE AUTO 1.016 (1.002-1.035); SQUAMOUS EPITHELIAL CELL UR AU 0 /HPF (0-6); UROBILINOGEN, URINE AUTO 0.2 mg/dL (0.0-2.0); WBC, URINE AUTO TNTC /HPF (0-3)
[2020-07-11 15:40] LABS: HEMOGLOBIN A1c 7.8 %
[2020-07-11 15:50] LABS: ERYTHROCYTE SEDIMENTATION RATE 34 mm/hr (0-20)
[2020-07-11 15:56] LABS: MALB URINE SIEMENS 57.2 MG/L; MAU/CREAT RATIO 47.6 MCG/MG (0.0-30.0)
[2020-07-11 15:58] LABS: ALBUMIN 3.4 GM/DL (3.2-5.2); BILIRUBIN,TOTAL 0.3 MG/DL (0.2-1.0); C REACTIVE PROTEIN QUANTITATIV 2.35 MG/DL (0.00-0.30); CALCIUM LEVEL 9.2 MG/DL (8.8-10.2); CHOLESTEROL RISK RATIO 4.2 (<5); CREATININE FOR GFR 1.36 MG/DL (0.70-1.30); FREE T4 0.88 NG/DL (0.76-1.46); GLOMERULAR FILTRATION RATE 56.2 (>49); POTASSIUM SERUM 4.7 MEQ/L (3.5-5.1); PTH INTACT 30.9 PG/ML (18.5-88.0); THYROID STIMULATING HORMONE 1.56 uIU/ML (0.358-3.740); TOTAL 25(OH) VITAMIN D 30.5 NG/ML (30.0-100.0); TOTAL PROTEIN 7.4 GM/DL (6.4-8.2)
== END ==
LOC: M SFHCPLAZ 12:55
PROVIDERS: ATTEND Family Medicine
DX: I25.5 Ischemic cardiomyopathy (principal); N18.3 Chronic kidney disease, stage 3 (moderate); E78.2 Mixed hyperlipidemia; E11.8 Type 2 diabetes mellitus with unspecified complications; N39.0 Urinary tract infection, site not specified; R10.31 Right lower quadrant pain

== ENCOUNTER → 2020-09-13 | Outpatient (CLI) | payer OTHER ==
[~2020-09-13] MED LIST changes: +ACET-838 PO; -NON-325T5 PO
--- NOTE | 2020-09-19 06:39 | ECWPNPC ---
PATIENT NAME: MACKENZIE NÚÑEZ : 1955 GENDER: MALE VISIT DATE: 09/13/2020 DISCHARGE DATE: 09/13/20 1259 VISIT LOCKED DATE TIME: PHYSICIAN: EMMANUEL BARAJAS PHYSICIAN PAGER NO: ACTIVE RESOURCE: EMMANUEL BARAJAS REASON FOR APPOINTMENT 1. W/C BACK [phone] HISTORY OF PRESENT ILLNESS GENERAL: PERMISSION REQUESTED AND RECEIVED FOR PATIENT TO PERFORM TELEPHONE VISIT. 65-YEAR-OLD MALE IN FOR CHRONIC PAIN FOLLOW-UP. HIS PAIN CURRENTLY AT A 10 OUT OF 10. PATIENT DENIES TRAUMA BUT STATES THAT HE IS EXPERIENCING AN INCREASE IN THE SHOOTING PAIN IN HIS LEGS. 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 THE PATIENT SAYS HIS PAIN STARTS IN HIS LOW BACK AND RADIATES DOWN INTO HIS LEGS. THE PATIENT HAS HAD FOUR BACK SURGERIES AND REPORTS HAVING COMPLICATIONS DURING THE MOST RECENT SURGERY BECAUSE THEY WENT IN THROUGH HIS FRONT. THE PATIENT SAYS HE HAS BEEN USING A WHEELCHAIR SINCE THE LAST SURGERY. THE PATIENT IS CURRENTLY USING OXYCODONE NEEDED TO AID IN PAIN RELIEF. CURRENT MEDICATIONS TAKING FERROUS SULFATE 325 (65 FE) MG TABLET 1 TABLET ORALLY ONCE A DAY TAKING MIRALAX - PACKET 1 PACKET MIXED WITH 8 OUNCES OF FLUID ORALLY ONCE A DAY TAKING CERTAVITE/ANTIOXIDANTS - TABLET 1 TABLET ORALLY ONCE A DAY TAKING FLUCONAZOLE 200 MG TABLET 2 TABLETS ORALLY DAILY TAKING RECLAST 5 MG/100ML SOLUTION DIRECTED INTRAVENOUS TAKING GABAPENTIN 600 MG TABLET 1 TABLET ORALLY THREE TIMES DAILY TAKING SKELAXIN 800 MG TABLET 1 TABLET ORALLY THREE TIMES A DAY TAKING ROSUVASTATIN CALCIUM 10 MG TABLET 1 TABLET ORALLY ONCE A DAY TAKING ASPIRIN 81 MG TABLET CHEWABLE 1 TABLET ORALLY ONCE A DAY TAKING PAROXETINE HCL 40 MG TABLET 1 TABLET IN THE MORNING ORALLY ONCE A DAY TAKING PANTOPRAZOLE SODIUM 40 MG TABLET DELAYED RELEASE 1 TABLET ORALLY EVERY MORNING TAKING CARVEDILOL 6.25 MG TABLET 1 TAB ORALLY BID TAKING LOSARTAN POTASSIUM 25 MG TABLET 1 TABLET ORALLY EVERY MORNING TAKING AMLODIPINE BESYLATE 2.5 MG TABLET 1 TABLET ORALLY EVERY MORING TAKING MAY HAVE - - LARGE NON-SKID SOCKS FOR DX=G82.21 (PARAPLEGIA) DAILY TAKING PREVAIL WET WIPES - MISCELLANEOUS DIRECTED FOR DX=G82.21 (PARAPLEGIA) DAILY TAKING GAIT/TRANSFER BELT - MISCELLANEOUS DIRECTED TAKING MAY USE 1 - BRACE FOR LEFT LOWER EXTREMITY DIRECTED DX:R27.0 DAILY CONTRACTURE OF LOWER JOINT, NOTES: FAX TO [phone] TAKING ACETOMINOPHEN-325 MG 325 MG TABLET 1 OR 2 TABS ORALLY EVERY FOUR HOURS PRN TAKING VOLTAREN 1 % GEL 4 GM TRANSDERMAL EVERY 4-HOURS NEEDED TAKING BLOOD GLUCOSE TEST - STRIP DIRECTED INTRADERMALLY BID DX: E11.9 TAKING HYDROCERIN - CREAM DIRECTED EXTERNALLY BID TO LOWER LEGS FROM KNEES DOWN TAKING LANCETS - MISCELLANEOUS ONE TOUCH DELICA DX: E11.9 TWICE A DAY TAKING PANTOPRAZOLE SODIUM 40 MG TABLET DELAYED RELEASE 1 TABLET ORALLY ONCE A DAY TAKING OXYCODONE HCL 10 MG TABLET 1 TABLET NEEDED ORALLY BID PRN PAIN 45 TABS TO LAST 30 DAYS NOT-TAKING CEPHALEXIN 500 MG CAPSULE 1 TABLET ORALLY TID MEDICATION LIST REVIEWED AND RECONCILED WITH THE PATIENT PAST MEDICAL HISTORY CAD, S/P AWMI POST-OP LAMINECTOMY-05/2017 VERY SMALL APICAL THROMBUS, LVEF 40%-AKINESIS OF APEX, MID ANT, MID ANTEROSEPTAL, LV DIASTOLIC DYSFX BY 05/2017 TTE-ANTECOL RST S ISCHEMIA BUT FOCAL/GLOBAL ABNORMALITY, LVEF 28%, HIGH RISK-JORGE/12/2017 CATH-NO SIGNIFICANT CAD-GABY/SP ICD 01/12/2018-GABY/02/19/19 TTE C LVEF 50-55%/NO JOAQUIM DYSFX-ETHAN HYPERLIPIDEMIA, 2B PAD T2DM NID COPD/EMPHYSEMA - FEV1 3.7 IN 2007, LIKELY FROM LONG-TERM HEAVY SMOKING ARON--INTOLERANT OF CPAP ED GERD CHRONIC 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 S/P EMERGENT ABDOMINAL AORTO BI-ILIAC ARTERY BYPASS GRAFT--REQUIRED 17 LITERS SALINE, 25 UNITS PRBC, 336 UNITS PLATELETS, 1 LITER FFP, 6 LITER CELL-SAVER ISCHEMIA LOWER EXTREMITIES WITH COMPARTMENT SYNDROME, REQUIRING BILAT 4 COMPATMENT FASCIOTOMIES SEPTIC SHOCK 2 PERFORATED VISCUS S/P EMERGENT LEFT COLECTOMY (C R COLOSTOMY), OPEN CHOLECYSTECTOMY, LIVER PACKING, ABTHERA REPLACMENT CHOLECYSTITIS, BILE LEAK POST CHOLECYSTECTYOMY LEFT COLECTOMY AND RT PARTIAL COLECTOMY WITH COLOSTOMY BRADYARHYTHMIA WITH CARDIAC ARREST/IWMI INFECTED AORTO BI-ILIAC BYPASS GRAFT C 2 CHRONIC DISSEMINATATED CANDIDIASIS AND S. EPIDERMIDIS BACTEREMIA ENTEROCTANEOUS FISTULAE H/O ACRODERMATITIS ENTEROPTHICA (ZINC-DEFICIENCY DERMATITIS) PROLONGED ICU/[facility] WITH TRACHEOSTOMY, SUBSEQUENT CLOSURE OF TRACH H/O STAGE 4 SACRAL DECUBITUS PSEUDOMONUS OSTEOMYELITIS HIT--HEPARIN INDUCED THROMBOCYTOPENIA H/O RECURRENT GOUT, L PODAGRA LUMBAR DJD- L3/4 MOD CCS, L4/5 MILD C GRADE 1 LITHESIS AND L L4 COMPRESSION IN NF, L5/S1 DIFFUSE BULGE C MINIMAL TS COMPRESSION BY 04/2017 CT LS SPINE RECURRENT UTI, OAB, CHRONIC PYURIA ALLERGIES REMERON: NIGHTMARES - SIDE EFFECTS WELLBUTRIN: AGITATION - SIDE EFFECTS ZOLOFT: DIARRHEA - SIDE EFFECTS PROZAC: DEPRESSION - SIDE EFFECTS SURGICAL HISTORY APPENDECTOMY RI LEFT ELBOW ULNAR NERVE TRANSPOSITION LUMBAR SPINAL FUSION 04/24 COLONOSCOPY--NL 11/17 REMOVAL SCREWS, RODS LUMBAR SPINE, BONE GRAFTING 06/25 EXP LAPAROTOMY, LEFT COLECTOMY, RIGHT COLOSTOMY 2013 ABORTED L4-L5 DISCECTOMY COMPLICATED BY INTRAOPERATIVE ILIAC VEIN AND AORTIC PERFORATION 07/2014 TRACHEOSTOMY 07/2014 CHOLECYSTECTOMY, SECONDARY TO BILE LEAK 07/2014 BILATERAL LOWER EXTREMITY FASCIOTOMIES R/T COMPARTMENT SYNDROME 07/29 DEFIBRILATOR PLACEMENT (R) SIDE 01/08/18 NEW PACEMAKER WIRE 06/05/18 CIRCUMCISION 2 PHIMOSIS/RECURRENT UTI-TASHI 10/01/2018 FAMILY HISTORY FATHER: , LUNG CANCER, DIAGNOSED WITH OTHER MALIGNANT NEOPLASM OF UNSPECIFIED SITE MOTHER: , DIABETES, TYPE II, OTHER SPECIFIED CONDITIONS INFLUENCING HEALTH STATUS, DIABETES SIBLINGS: DIABETES, TYPE II, UNSPECIFIED HEART DISEASE, DIABETES 6 BROTHER(S) , 5 SISTER(S) . MOM WITH COPD, CHF. BROTHER WITH HEART DISEASE, DIABETES. SOCIAL HISTORY GENERAL: TOBACCO USE ARE YOU A:CURRENT SMOKER ARE YOU INTERESTED IN QUITTING?NOT READY TO QUIT COUNSELED THE PATIENT ON SMOKING EFFECTS, EDUCATION [id number]/30/2020 HOW MANY CIGARETTES A DAY DO YOU SMOKE?6-10 HOW SOON AFTER YOU WAKE UP DO YOU SMOKE YOUR FIRST CIGARETTE?AFTER 60 MIN HOW OFTEN DO YOU SMOKE CIGARETTES?EVERY DAY PATIENT COUNSELED ON THE DANGERS OF TOBACCO USE AND URGED TO QUIT:07/11/2020 SMOKING CESSATION INFORMATION GIVEN07/11/2020 LATEX QUESTIONNAIRE LATEX ALLERGY : HAVE YOU EVER DEVELOPED ANY TYPE OF REACTION AFTER HANDLING LATEX PRODUCTS SUCH RUBBER GLOVES, CONDOMS, DIAPHRAGMS, BALLOONS, SOCKS, OR UNDERWEAR?NO LATEX ALLERGY : HAVE YOU EVER DEVELOPED ANY TYPE OF REACTION DURING OR AFTER DENTAL APPOINTMENT, VAGINAL/RECTAL EXAMINATION, SURGICAL PROCEDURE, OR ANY OTHER EXPOSURE?NO LATEX RISK : HAVE YOU EVER HAD ANY DIFFICULTY BREATHING OR HIVES AFTER EATING OR HANDLING ANY FRUITS, OR VEGETABLES; SUCH KIWI, BANANAS, STONE FRUITS, OR CHESTNUTSNO LATEX RISK : DO YOU HAVE A PREVIOUS PERSONAL HISTORY OF MORE THAN NINE SURGERIES, SPINA BIFIDA, OR REPEATED CATHERIZATIONS? YES - PLEASE INDICATE : > 9 SURGERIES LATEX RISK : ARE YOU FREQUENTLY EXPOSED TO LATEX PRODUCTS IN YOUR OCCUPATION?NO DATE ASKED : 06/22/2020 BMI CARE GOAL FOLLOW-UP ABOVE NORMAL BMI FOLLOW-UPGIVING ENCOURAGEMENT TO EXERCISE ALCOHOL SCREENING POINTS: 0, INTERPRETATION: NEGATIVE. RECREATIONAL DRUG USE DENIES. 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 DIET: REGULAR. EXERCISE: WALKING. MARITAL STATUS: -MATEO. PATIENT DESCRIBES PAIN : HAVE IT ALL THE TIME, SHARP, FROM 0-10, WHAT LEVEL IS YOUR PAIN TODAY? 10, PRECIPITATING FACTORS WORSE WITH ACTIVITY, ALLEVIATING FACTORS PAIN MEDS. PAIN CLINIC PFS, CLERGY, PUBLIC HEALTH REFERRALS HAS THE PATIENT BEEN EDUCATED REGARDING HIS/HER PLAN OF CARE?YES HAS THE PATIENT BEEN EDUCATED REGARDING PAIN, THE RISK FOR PAIN, THE IMPORTANCE OF EFFECTIVE PAIN MANAGEMENT, AND THE PAIN ASSESSMENT PROCESS?YES ADVANCE DIRECTIVE ADVANCE DIRECTIVE DISCUSSED WITH PATIENT:YES PATIENT STATES HE HAS POA- MATEO AND HE THISNKS HE HAS [id number] ([phone]) HOSPITALIZATION/MAJOR DIAGNOSTIC PROCEDURE COMPLICATIONS FOLLOWING ATTEMPTED LS SPINE SURGERY 07/18/14-05/17/15 SBO, UTI, INFLUENZA-RESOLVED C NGT 09/2015 BOWEL OBSTRUCTION DECEMBER/2016 ABORTED L4-5 DISKECTOMY, COMPLIACTED BY INTRAOPERATIVE ILIACVEIN AND AORTIC PERFORATION 07/29 BILAT LOWER EXT FASCIOTOMIES (COMPARTMENT SYNDROME) 07/29 EXP LAPAROTOMY, LEFT COLECTOMY, RIGHT COLOSTOMY 07/29 OPEN CHOLECYTECTOMY, SECONADRY BILE LEAK 07/29 TRACHEOSTOMY 07/29 REMOVAL INFECTED AORTOBIFEMORAL GRAFT, INSERTION OF SECOND ABF GRAFT 08/28 TEMPORARY PACEMAKER 08/28 ERCP, SPHICTEROTOMY, BILARY STENT PLACEMENT 09/29 FIRST OF SEVERAL SACRAL DECUB DEBRIDEMENTS 11/27 EGD--BILIARY STENT REMOVED 11/27 TRACH REMOVAL/CLOSURE 03/29 SMC-ELEVATED INR 7.9 C BLEEDING AT OSTOMY SITE 04/19-05/01 HOSPITALIZED FOR DEFIBRILATOR PLACEMENT 01/08/18-01/20/18 NEW PACEMAKER WIRE 06/04/18 SYNCOPE 2 SB TO 40S, CARVE DECREASED 25 BID TO 6.25 BID 02/18-06/03 REVIEW OF SYSTEMS CONSTITUTIONAL: ANY RECENT FEVER NO . CHILLS NO . WEIGHT CHANGE OF UNKNOWN REASONS NO . GASTROENTEROLOGY: NEW UNEXPLAINABLE CHANGES IN BOWEL CONTROL NO . CONSTIPATION NO . GENITOURINARY: ANY NEW CHANGE IN BLADDER CONTROL? NO . NEUROLOGY: NEW ONSET DIZZINESS OR NEUROLOGICAL CHANGES NOT MENTIONED NO . NEW NUMBNESS OR PAIN PATTERNS NOT MENTIONED AND PERTINENT TO TODAY'S VISIT NO . CARDIOLOGY: NEW CHEST PRESSURE NO . NEW CHEST PAIN NO . RESPIRATORY: UNEXPLAINABLE COUGH NO . NEW SHORTNESS OF BREATH NO . EXAMINATION GENERAL EXAMINATION: PSYCHAPPROPRIATE MOOD AND AFFECT , ORIENTED X 3. 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 GIVEN PRESENTING SYMPTOMS RECOMMEND INCREASING NUMBER OF OXYCODONE TABS TO 60 TABS PER MONTH WITH FOLLOW-UP IN 3 MONTHS. PATIENT EXPRESSED UNDERSTANDING OF AND WAS IN AGREEMENT WITH TREATMENT PLAN. GIVEN TIME TO ASK QUESTIONS AND EXPRESS CONCERNS. , ISTOP REGISTRY REVIEWED AND DEMONSTRATES COMPLLIANCE. (REF # [id number] ) BRINGS IN MEDICATIONS WHICH IS APPROPRIATE FOR WHAT WAS DISPENSED. RECENT URINE TOXICOLOGY REVIEWED. NO UNAUTHORIZED MEDICATIONS. NO ILLICIT SUBSTANCES AND PRESCRIBED MEDICATIONS WERE PRESENT. VISIT CONDUCTED VIA TELEPHONE. TIME SPENT WITH PATIENT 11 MINUTES. OTHERS NOTES: 09/11/2020 1402 ACCIDENTALLY CLICKED MEDICATIONS AND OPENED THEM. NLJ NO VITAL SIGNS TAKEN FOR VIRTUAL VISIT. EM. PROCEDURES PN WORKMANS' COMP OPINION IN YOUR OPINION, WAS THE INCIDENT THAT THE PATIENT DESCRIBED THE COMPETENT MEDICAL CAUSE OF THIS INJURY/ILLNESS? YES ARE THE PATIENT'S COMPLAINTS CONSISTENT WITH HIS/HER HISTORY OF THE INJURY/ILLNESS? YES IS THE PATIENT'S HISTORY OF THE INJURY/ILLNESS CONSISTENT WITH YOUR OBJECTIVE FINDING? YES WHAT IS THE PERCENTAGE OF TEMPORARY IMPAIRMENT? TOTAL = 100% IS THE PATIENT WORKING? NO DOCTOR ON SITE: LUX CARPIO MD DISPOSITION & COMMUNICATION FOLLOW UP 3 MONTHS (REASON: BACK PAIN) ELECTRONICALLY SIGNED BY KAELA JUNIOR ON 09/18/2020 AT 10:31 AM EST DISCLAIMER : THIS IS A VISIT SUMMARY EXTRACTED FROM THE [employer] CHART. IT IS NOT A COPY OF THE [employer] PROGRESS NOTE. MARIAELENA
== END ==
LOC: M PAIN 11:30
PROVIDERS: ATTEND Family Medicine
DX: M96.1 Postlaminectomy syndrome, not elsewhere classified (principal); E11.9 Type 2 diabetes mellitus without complications; J44.9 Chronic obstructive pulmonary disease, unspecified; G47.33 Obstructive sleep apnea (adult) (pediatric); K21.9 Gastro-esophageal reflux disease without esophagitis; F17.210 Nicotine dependence, cigarettes, uncomplicated; Z86.59 Personal history of other mental and behavioral disorders; Z95.0 Presence of cardiac pacemaker; Z88.8 Allergy status to other drugs, medicaments and biological substances; Z79.82 Long term (current) use of aspirin; Z79.899 Other long term (current) drug therapy

== ENCOUNTER → 2020-11-27 | Outpatient (REF) | payer OTHER ==
[~2020-11-27] MED LIST changes: -AMIT25TA PO; +AMIT25TA17 PO; +GABA-282 PO; -GABA-843 PO
[2020-11-27 13:07] LABS: BASO # 0.1 10^3/uL (0.0-0.2); BASO % 0.7 % (0.0-1.0); EOS # 0.2 10^3/uL (0.0-0.5); EOS % 1.9 % (0.0-3.0); HEMATOCRIT 50.4 % (42.0-52.0); HEMOGLOBIN 15.9 g/dl (13.5-17.5); LYMPH # 1.5 10^3/uL (1.5-5.0); LYMPH % 14.3 % (24.0-44.0); MEAN CORPUSCULAR HEMOGLOBIN 31.4 pg (27.0-33.0); MEAN CORPUSCULAR HGB CONC 31.5 g/dl (32.0-36.5); MEAN CORPUSCULAR VOLUME 99.4 fl (80.0-96.0); MONO # 1.1 10^3/uL (0.0-0.8); NEUTROPHILS # 7.8 10^3/uL (1.5-8.5); NEUTROPHILS % 72.6 % (36.0-66.0); PLATELET COUNT, AUTOMATED 212 10^3/uL (150-450); RED BLOOD COUNT 5.07 10^6/uL (4.30-6.10); WHITE BLOOD COUNT 10.7 10^3/uL (4.0-10.0)
[2020-11-27 13:56] LABS: ALBUMIN 3.9 GM/DL (3.2-5.2); ALT/SGPT 25 U/L (12-78); BILIRUBIN,TOTAL 0.3 MG/DL (0.2-1.0); BLOOD UREA NITROGEN 24 MG/DL (7-18); CALCIUM LEVEL 9.7 MG/DL (8.8-10.2); CARBON DIOXIDE LEVEL 29 MEQ/L (21-32); CHLORIDE LEVEL 106 MEQ/L (98-107); CREATININE FOR GFR 1.61 MG/DL (0.70-1.30); FERRITIN 61 NG/ML (26-388); GLOMERULAR FILTRATION RATE 46.2 (>49); GLUCOSE, FASTING 176 MG/DL (70-100); NT-PRO BNP 161 PG/ML (<125); POTASSIUM SERUM 4.8 MEQ/L (3.5-5.1); SODIUM LEVEL 142 MEQ/L (136-145); TOTAL PROTEIN 7.7 GM/DL (6.4-8.2)
[2020-11-27 14:24] LABS: HEMOGLOBIN A1c 8.2 %
== END ==
LOC: M SFHCPLAZ 09:53
PROVIDERS: ATTEND Family Medicine
DX: D50.9 Iron deficiency anemia, unspecified (principal); I25.5 Ischemic cardiomyopathy; Z12.5 Encounter for screening for malignant neoplasm of prostate; E11.8 Type 2 diabetes mellitus with unspecified complications
CPT/HCPCS: 36415; 80053; 82728; 83036; 83880; 84165; 85025; 85046; 86335; G0103

== ENCOUNTER → 2020-12-11 | Outpatient (CLI) | payer OTHER ==
--- NOTE | 2020-12-13 05:59 | ECWPNPC ---
PATIENT NAME: MACKENZIE NÚÑEZ : 1955 GENDER: MALE VISIT DATE: 12/11/2020 DISCHARGE DATE: 12/11/20 1211 VISIT LOCKED DATE TIME: PHYSICIAN: EMMANUEL BARAJAS PHYSICIAN PAGER NO: ACTIVE RESOURCE: EMMANUEL BARAJAS REASON FOR APPOINTMENT 1. BACK PAIN HISTORY OF PRESENT ILLNESS DEPRESSION SCREENING: PHQ-2 (2015 EDITION) LITTLE INTEREST OR PLEASURE IN DOING THINGS?NOT AT ALL FEELING DOWN, DEPRESSED, OR HOPELESS?NOT AT ALL TOTAL SCORE0 65-YEAR-OLD MALE IN FOR CHRONIC PAIN FOLLOW-UP. HE FEELS MEDICATIONS ARE HELPFUL AND DENIES MED SIDE EFFECTS AT THIS TIME. HE DOES ADMIT TO 7 OUT OF 10 PAIN CURRENTLY AND HE DESCRIBES IT CONTINUOUS, SHARP, AND STABBING. THE PATIENT WAS HURT IN A WORK RELATED INJURY ON 04/15/2008 WHILE WORKING [employer] B[employer] WHEN HE SLIPPED ON A WET FLOOR AND FELL CAUSING HIM TO INJURE HIS BACK. THE PATIENT SAYS HIS PAIN STARTS IN HIS LOW BACK AND RADIATES DOWN INTO HIS LEGS. THE PATIENT HAS HAD FOUR BACK SURGERIES AND REPORTS HAVING COMPLICATIONS DURING THE MOST RECENT SURGERY BECAUSE THEY WENT IN THROUGH HIS FRONT. THE PATIENT SAYS HE HAS BEEN USING A WHEELCHAIR SINCE THE LAST SURGERY. THE PATIENT IS CURRENTLY USING OXYCODONE NEEDED TO AID IN PAIN RELIEF. GENERAL: -. FALL RISK SCREENING: SCREENING : NO FALLS REPORTED IN THE LAST YEAR. PAIN SCREENING: PATIENT HAS A COMPLAINT OF ACUTE OR CHRONIC PAIN :YES LOCATION OF PAIN:LOW BACK INTENSITY OF PAIN (SCALE OF 1 TO 10):7 REACHES 10 ON THE PAIN SCALE AT ITS WORST. WHAT DOES YOUR PAIN FEEL LIKE:CONTINOUS, SHARP, STABBING DURATION:CONTINOUS, CONSTANT, AWAKENS FROM SLEEP PAIN IS INCREASED BY:OTHERS NOTHING AGGRAVATES THE PAIN. PATIENT STATES IT IS STEADY. PAIN IS DECREASED BY:OTHERS NOTHING HELPS THE PAIN NURSING NOTE: -. PAIN CENTER INTAKE QUESTIONS: DO YOU HAVE A HISTORY OF MRSA? :NO DO YOU TAKE A BLOOD THINNERS? :NO ASPIRIN 81MG DO YOU HAVE ANY BLEEDING DISORDERS? :NO ANY NEW NUMBNESS OR WEAKNESS IN YOUR LEGS OR ARMS? :NO ANY PACEMAKER,DEFIBRILLATOR, OR DORSAL COLUMN STIMULATOR? :NO DEFIBRILLATOR DO YOU HAVE ANY RASHES OR OPEN SORES? :YES OPEN AREA ON BACK AND RIGHT GREAT TOE ARE YOU ALLERGIC TO IV DYE? :NO ARE YOU DIABETIC? :NO ANY NEW PROBLEMS WITH YOUR MEDICATIONS? :NO HAVE YOU RECEIVED A VACCINE IN THE PAST 30 DAYS? :YES IF SO WHAT VACCINE AND WHEN? FIRST COVID VACCINATION DO YOU PLAN TO RECEIVE A VACCINE IN THE NEXT 21 DAYS? :YES IF SO WHAT VACCINE AND WHEN? SECOND COVID VACCINATION 12/15/2020 DO YOU NEED ANY PRESCRIPTION? :NO DO YOU TAKE ANY IMMUNOSUPPRESSIVE MEDICATIONS? :NO DO YOU HAVE ANY KIDNEY OR LIVER DISEASE? :YES STAGE 3 KIDNEY DISEASE IS THERE A CHANCE YOU COULD BE ? :NO ARE YOU BREAST FEEDING? :NO CURRENT MEDICATIONS TAKING PANTOPRAZOLE SODIUM 40 MG TABLET DELAYED RELEASE 1 TABLET ORALLY ONCE A DAY TAKING FERROUS SULFATE 325 (65 FE) MG TABLET 1 TABLET ORALLY ONCE A DAY TAKING MIRALAX - PACKET 1 PACKET MIXED WITH 8 OUNCES OF FLUID ORALLY ONCE A DAY TAKING CERTAVITE/ANTIOXIDANTS - TABLET 1 TABLET ORALLY ONCE A DAY TAKING FLUCONAZOLE 200 MG TABLET 2 TABLETS ORALLY DAILY TAKING RECLAST 5 MG/100ML SOLUTION DIRECTED INTRAVENOUS TAKING OXYCODONE HCL 10 MG TABLET 1 TABLET NEEDED ORALLY DAILY PRN SEVERE PAIN MDD=1 TAKING GABAPENTIN 600 MG TABLET 1 TABLET ORALLY THREE TIMES DAILY TAKING SKELAXIN 800 MG TABLET 1 TABLET ORALLY THREE TIMES A DAY TAKING ROSUVASTATIN CALCIUM 10 MG TABLET 1 TABLET ORALLY ONCE A DAY TAKING ASPIRIN 81 MG TABLET CHEWABLE 1 TABLET ORALLY ONCE A DAY TAKING PAROXETINE HCL 40 MG TABLET 1 TABLET IN THE MORNING ORALLY ONCE A DAY TAKING PANTOPRAZOLE SODIUM 40 MG TABLET DELAYED RELEASE 1 TABLET ORALLY EVERY MORNING TAKING MAY HAVE - - LARGE NON-SKID SOCKS FOR DX=G82.21 (PARAPLEGIA) DAILY TAKING PREVAIL WET WIPES - MISCELLANEOUS DIRECTED FOR DX=G82.21 (PARAPLEGIA) DAILY TAKING GAIT/TRANSFER BELT - MISCELLANEOUS DIRECTED TAKING MAY USE 1 - BRACE FOR LEFT LOWER EXTREMITY DIRECTED DX:R27.0 DAILY CONTRACTURE OF LOWER JOINT, NOTES: FAX TO [phone] TAKING ACETOMINOPHEN-325 MG 325 MG TABLET 1 OR 2 TABS ORALLY EVERY FOUR HOURS PRN TAKING VOLTAREN 1 % GEL 4 GM TRANSDERMAL EVERY 4-HOURS NEEDED TAKING BLOOD GLUCOSE TEST - STRIP DIRECTED INTRADERMALLY BID DX: E11.9 TAKING HYDROCERIN - CREAM DIRECTED EXTERNALLY BID TO LOWER LEGS FROM KNEES DOWN TAKING LANCETS - MISCELLANEOUS ONE TOUCH DELICA DX: E11.9 TWICE A DAY TAKING CERTAVITE/ANTIOXIDANTS - TABLET 1 TABLET ORALLY ONCE A DAY TAKING CARVEDILOL 6.25 MG TABLET 1 TAB ORALLY BID TAKING LOSARTAN POTASSIUM 25 MG TABLET 1 TABLET ORALLY EVERY MORNING TAKING AMLODIPINE BESYLATE 2.5 MG TABLET 1 TABLET ORALLY EVERY MORING TAKING COMBIVENT RESPIMAT 20-100 MCG/ACT AEROSOL 1 PUFF INHALATION FOUR TIMES DAILY NEEDED TAKING FERROUS SULFATE 325 (65 FE) MG TABLET DELAYED RELEASE TAKE ONE TABLET BY MOUTH EVERY DAY NOT-TAKING CEPHALEXIN 500 MG CAPSULE 1 TABLET ORALLY TID MEDICATION LIST REVIEWED AND RECONCILED WITH THE PATIENT PAST MEDICAL HISTORY CAD, S/P AWMI POST-OP LAMINECTOMY-05/2017 VERY SMALL APICAL THROMBUS, LVEF 40%-AKINESIS OF APEX, MID ANT, MID ANTEROSEPTAL, LV DIASTOLIC DYSFX BY 05/2017 TTE-ANTECOL/07/2017 RST S ISCHEMIA BUT FOCAL/GLOBAL ABNORMALITY, LVEF 28%, HIGH RISK-JORGE/12/2017 CATH-NO SIGNIFICANT CAD-GABY/SP ICD 01/12/2018-GABY/02/19/19 TTE C LVEF 50-55%/NO JOAQUIM DYSFX-ETHAN HYPERLIPIDEMIA, 2B PAD T2DM NID COPD/EMPHYSEMA - FEV1 3.7 IN 2007, LIKELY FROM LONG-TERM HEAVY SMOKING ARON--INTOLERANT OF CPAP ED GERD CHRONIC 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 S/P EMERGENT ABDOMINAL AORTO BI-ILIAC ARTERY BYPASS GRAFT--REQUIRED 17 LITERS SALINE, 25 UNITS PRBC, 336 UNITS PLATELETS, 1 LITER FFP, 6 LITER CELL-SAVER ISCHEMIA LOWER EXTREMITIES WITH COMPARTMENT SYNDROME, REQUIRING BILAT 4 COMPATMENT FASCIOTOMIES SEPTIC SHOCK 2 PERFORATED VISCUS S/P EMERGENT LEFT COLECTOMY (C R COLOSTOMY), OPEN CHOLECYSTECTOMY, LIVER PACKING, ABTHERA REPLACMENT CHOLECYSTITIS, BILE LEAK POST CHOLECYSTECTYOMY LEFT COLECTOMY AND RT PARTIAL COLECTOMY WITH COLOSTOMY BRADYARHYTHMIA WITH CARDIAC ARREST/IWMI INFECTED AORTO BI-ILIAC BYPASS GRAFT C 2 CHRONIC DISSEMINATATED CANDIDIASIS AND S. EPIDERMIDIS BACTEREMIA ENTEROCTANEOUS FISTULAE H/O ACRODERMATITIS ENTEROPTHICA (ZINC-DEFICIENCY DERMATITIS) [facility]ED [facility] WITH TRACHEOSTOMY, SUBSEQUENT CLOSURE OF TRACH H/O STAGE 4 SACRAL DECUBITUS PSEUDOMONUS OSTEOMYELITIS HIT--HEPARIN INDUCED THROMBOCYTOPENIA H/O RECURRENT GOUT, L PODAGRA LUMBAR DJD- L3/4 MOD CCS, L4/5 MILD C GRADE 1 LITHESIS AND L L4 COMPRESSION IN NF, L5/S1 DIFFUSE BULGE C MINIMAL TS COMPRESSION BY 04/2017 CT LS SPINE RECURRENT UTI, OAB, CHRONIC PYURIA ALLERGIES REMERON: NIGHTMARES - SIDE EFFECTS WELLBUTRIN: AGITATION - SIDE EFFECTS ZOLOFT: DIARRHEA - SIDE EFFECTS PROZAC: DEPRESSION - SIDE EFFECTS SOCIAL HISTORY GENERAL: TOBACCO USE ARE YOU A:CURRENT SMOKER HOW OFTEN DO YOU SMOKE CIGARETTES?EVERY DAY HOW SOON AFTER YOU WAKE UP DO YOU SMOKE YOUR FIRST CIGARETTE?AFTER 60 MIN HOW MANY CIGARETTES A DAY DO YOU SMOKE?6-10 ARE YOU INTERESTED IN QUITTING?NOT READY TO QUIT PATIENT COUNSELED ON THE DANGERS OF TOBACCO USE AND URGED TO QUIT:07/11/2020 COUNSELED THE PATIENT ON SMOKING EFFECTS, EDUCATION AVOJASYP75/30/2020 SMOKING CESSATION INFORMATION GIVEN07/11/2020 LATEX QUESTIONNAIRE LATEX ALLERGY : HAVE YOU EVER DEVELOPED ANY TYPE OF REACTION AFTER HANDLING LATEX PRODUCTS SUCH RUBBER GLOVES, CONDOMS, DIAPHRAGMS, BALLOONS, SOCKS, OR UNDERWEAR?NO LATEX ALLERGY : HAVE YOU EVER DEVELOPED ANY TYPE OF REACTION DURING OR AFTER DENTAL APPOINTMENT, VAGINAL/RECTAL EXAMINATION, SURGICAL PROCEDURE, OR ANY OTHER EXPOSURE?NO LATEX RISK : HAVE YOU EVER HAD ANY DIFFICULTY BREATHING OR HIVES AFTER EATING OR HANDLING ANY FRUITS, OR VEGETABLES; SUCH KIWI, BANANAS, STONE FRUITS, OR CHESTNUTSNO LATEX RISK : DO YOU HAVE A PREVIOUS PERSONAL HISTORY OF MORE THAN NINE SURGERIES, SPINA BIFIDA, OR REPEATED CATHERIZATIONS? YES - PLEASE INDICATE : > 9 SURGERIES LATEX RISK : ARE YOU FREQUENTLY EXPOSED TO LATEX PRODUCTS IN YOUR OCCUPATION?NO DATE ASKED : 12/11/2020 ALCOHOL USE: NO. BMI CARE GOAL FOLLOW-UP ABOVE NORMAL BMI FOLLOW-UPGIVING ENCOURAGEMENT TO EXERCISE ALCOHOL SCREENING POINTS: 0, INTERPRETATION: NEGATIVE. RECREATIONAL DRUG USE DRUG USE?NO CAFFEINE CAFFEINE USE?YES 2 CUPS PER DAY HIV / HEP-C SCREENING HIV TEST OFFERED TO PATIENT:YES DATE OFFERED:10/19/2019 TEST ACCEPTED:NO HEP-C TEST OFFERED TO PATIENT:YES DATE OFFERED:10/19/2019 REASON:PATIENT DECLINED TEST ACCEPTED:NO REASON:PATIENT DECLINED BROCHURE PROVIDED TO PATIENTYES YAZIDI [id number] NONDENOMINATIONAL LANGUAGE LANGUAGES SPOKEN:TURKMEN EDUCATION LEVEL OF EDUCATION:NOT FINISHED COLLEGE 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, 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 DIET: REGULAR. EXERCISE: WALKING. MARITAL STATUS: -MATEO. PATIENT DESCRIBES PAIN : HAVE IT ALL THE TIME, SHARP, FROM 0-10, WHAT LEVEL IS YOUR PAIN TODAY? 10, PRECIPITATING FACTORS WORSE WITH ACTIVITY, ALLEVIATING FACTORS PAIN MEDS. - HAS THE PATIENT BEEN EDUCATED REGARDING HIS/HER PLAN OF CARE?YES HAS THE PATIENT BEEN EDUCATED REGARDING PAIN, THE RISK FOR PAIN, THE IMPORTANCE OF EFFECTIVE PAIN MANAGEMENT, AND THE PAIN ASSESSMENT PROCESS?YES ADVANCE DIRECTIVE ADVANCE DIRECTIVE DISCUSSED WITH PATIENT:YES PATIENT STATES HE HAS POA- MATEO AND HE THISNKS HE HAS [id number] ([phone]) REVIEW OF SYSTEMS CONSTITUTIONAL: ANY RECENT FEVER NO . CHILLS NO . WEIGHT CHANGE OF UNKNOWN REASONS NO . GASTROENTEROLOGY: NEW UNEXPLAINABLE CHANGES IN BOWEL CONTROL NO . CONSTIPATION NO . GENITOURINARY: ANY NEW CHANGE IN BLADDER CONTROL? NO . NEUROLOGY: NEW ONSET DIZZINESS OR NEUROLOGICAL CHANGES NOT MENTIONED NO . NEW NUMBNESS OR PAIN PATTERNS NOT MENTIONED AND PERTINENT TO TODAY'S VISIT NO . CARDIOLOGY: NEW CHEST PRESSURE NO . PATIENT DENIES NO . RESPIRATORY: UNEXPLAINABLE COUGH NO . NEW SHORTNESS OF BREATH NO . VITAL SIGNS WT 187.0 LBS, HT 69 IN, BMI 27.61 INDEX, BP 127/63 MM HG, HR 58 /MIN, RR 18 /MIN, TEMP 96.9 F, OXYGEN SAT % 97%, SAFE IN ENV? (Y/N) YES, NA INITIALS AW 1144, REVIEWED BY: AMAURI WYLIE MA. EXAMINATION GENERAL EXAMINATION: GENERALNO ACUTE DISTRESS, WELL NOURISHED AND HYDRATED. PSYCHAPPROPRIATE MOOD AND AFFECT . LUNGS:DECREASED BILATERALLY. HEART:NO MURMURS, REGULAR RATE AND RHYTHM. 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 CHRONIC PAIN FOLLOW-UP. GIVEN PRESENTING SYMPTOMS RECOMMEND CONTINUATION OF CURRENT MEDICATION REGIMEN WITH FOLLOW-UP IN 3 MONTHS. PATIENT HAS EXPRESSED UNDERSTANDING OF AND WAS IN AGREEMENT WITH TREATMENT PLAN. GIVEN TIME TO ASK QUESTIONS AND EXPRESS CONCERNS. , ISTOP REGISTRY REVIEWED AND DEMONSTRATES COMPLLIANCE. (REF # ) BRINGS IN MEDICATIONS WHICH IS APPROPRIATE FOR WHAT WAS DISPENSED. RECENT URINE TOXICOLOGY REVIEWED. NO UNAUTHORIZED MEDICATIONS. NO ILLICIT SUBSTANCES AND PRESCRIBED MEDICATIONS WERE PRESENT. PROCEDURES PN WORKMANS' COMP OPINION IN YOUR OPINION, WAS THE INCIDENT THAT THE PATIENT DESCRIBED THE COMPETENT MEDICAL CAUSE OF THIS INJURY/ILLNESS? YES ARE THE PATIENT'S COMPLAINTS CONSISTENT WITH HIS/HER HISTORY OF THE INJURY/ILLNESS? YES IS THE PATIENT'S HISTORY OF THE INJURY/ILLNESS CONSISTENT WITH YOUR OBJECTIVE FINDING? YES WHAT IS THE PERCENTAGE OF TEMPORARY IMPAIRMENT? TOTAL = 100% IS THE PATIENT WORKING? NO DOCTOR ON SITE: LUX CARPIO MD PROCEDURE CODES FA211 ESTABILISHED PATIENT [facility] CHARGE DISPOSITION & COMMUNICATION FOLLOW UP 3 MONTHS (REASON: BACK PAIN ) ELECTRONICALLY SIGNED BY KAELA JUNIOR ON 12/12/2020 AT 08:47 AM EDT DISCLAIMER : THIS IS A VISIT SUMMARY EXTRACTED FROM THE [facility] CHART. IT IS NOT A COPY OF THE [employer] PROGRESS NOTE. MTDCarlitos
== END ==
LOC: M PAIN 11:30
PROVIDERS: ATTEND Family Medicine
DX: M96.1 Postlaminectomy syndrome, not elsewhere classified (principal); M47.816 Spondylosis without myelopathy or radiculopathy, lumbar region; N18.30 Chronic kidney disease, stage 3 unspecified; I25.10 Atherosclerotic heart disease of native coronary artery without angina pectoris; E78.5 Hyperlipidemia, unspecified; E11.51 Type 2 diabetes mellitus with diabetic peripheral angiopathy without gangrene; J44.9 Chronic obstructive pulmonary disease, unspecified; G47.33 Obstructive sleep apnea (adult) (pediatric); N52.9 Male erectile dysfunction, unspecified; K21.9 Gastro-esophageal reflux disease without esophagitis; F32.9 Major depressive disorder, single episode, unspecified; F41.1 Generalized anxiety disorder; E55.9 Vitamin D deficiency, unspecified; F17.210 Nicotine dependence, cigarettes, uncomplicated; Z79.891 Long term (current) use of opiate analgesic; Z79.82 Long term (current) use of aspirin; Z79.899 Other long term (current) drug therapy; Z88.8 Allergy status to other drugs, medicaments and biological substances

== ENCOUNTER 2020-12-12 15:01 | Outpatient (CLI) | payer OTHER ==
[~2020-12-12] VITALS: Ht 175.3 cm; Wt 86.2 kg
[2020-12-12 15:26] VITALS: BP 119/69
[2020-12-12] MEDS ORDERED: ZOLEDRONIC ACID 5 MG in IV 1 EA IV ONE (15:30)
[2020-12-12 16:00] VITALS: BP 146/71
== END 2020-12-12 16:00 | disposition home or self-care (01) ==
LOC: M INFU 15:01
PROVIDERS: ATTEND Family Medicine
DX: M85.80 Other specified disorders of bone density and structure, unspecified site (principal); Z88.8 Allergy status to other drugs, medicaments and biological substances
CPT/HCPCS: 96365; J3489

== ENCOUNTER → 2021-03-13 | Outpatient (CLI) | payer OTHER ==
[~2021-03-13] MED LIST changes: -ACET-838 PO; +ACET32TAB PO; +GABA-283 PO; -GABA-845 PO
--- NOTE | 2021-03-16 05:35 | ECWPNPC ---
PATIENT NAME: MACKENZIE NÚÑEZ : 1955 GENDER: MALE VISIT DATE: 03/13/2021 DISCHARGE DATE: 03/13/21 1155 VISIT LOCKED DATE TIME: PHYSICIAN: EMMANUEL BARAJAS PHYSICIAN PAGER NO: ACTIVE RESOURCE: EMMANUEL BARAJAS REASON FOR APPOINTMENT 1. BACK PAIN HISTORY OF PRESENT ILLNESS GENERAL: HPI 66-YEAR-OLD MALE IN FOR WORKER'S COMP. CHRONIC PAIN FOLLOW-UP. HE RATES PAIN CURRENTLY MADE AT 10 AND DESCRIBES IT ACHING, BURNING, AND CONTINUOUS. HE FEELS HIS MEDICATIONS ARE HELPFUL AND DENIES MED SIDE EFFECTS AT THIS TIME. DOI: 04/15/2008. - -. FALL RISK SCREENING: SCREENING : NO FALLS REPORTED IN THE LAST YEAR . PAIN SCREENING: PATIENT HAS A COMPLAINT OF ACUTE OR CHRONIC PAIN :YES LOCATION OF PAIN:LOW BACK, BACK INTENSITY OF PAIN (SCALE OF 1 TO 10):8 WHAT DOES YOUR PAIN FEEL LIKE:ACHING, BURNING, CONTINOUS, SHARP DURATION:CONTINOUS, CONSTANT, AWAKENS FROM SLEEP PAIN IS INCREASED BY:ACTIVITIES, PROLONGED STANDING PAIN IS DECREASED BY:USE OF PAIN MEDICATIONS, SITTING NURSING NOTE: - -. CURRENT MEDICATIONS TAKING PANTOPRAZOLE SODIUM 40 MG TABLET DELAYED RELEASE 1 TABLET ORALLY ONCE A DAY TAKING FERROUS SULFATE 325 (65 FE) MG TABLET 1 TABLET ORALLY ONCE A DAY TAKING CERTAVITE/ANTIOXIDANTS - TABLET 1 TABLET ORALLY ONCE A DAY TAKING RECLAST 5 MG/100ML SOLUTION DIRECTED INTRAVENOUS TAKING PAROXETINE HCL 40 MG TABLET 1 TABLET IN THE MORNING ORALLY ONCE A DAY TAKING PANTOPRAZOLE SODIUM 40 MG TABLET DELAYED RELEASE 1 TABLET ORALLY EVERY MORNING TAKING MAY HAVE - - LARGE NON-SKID SOCKS FOR DX=G82.21 (PARAPLEGIA) DAILY TAKING PREVAIL WET WIPES - MISCELLANEOUS DIRECTED FOR DX=G82.21 (PARAPLEGIA) DAILY TAKING GAIT/TRANSFER BELT - MISCELLANEOUS DIRECTED TAKING MAY USE 1 - BRACE FOR LEFT LOWER EXTREMITY DIRECTED DX:R27.0 DAILY CONTRACTURE OF LOWER JOINT, NOTES: FAX TO [phone] TAKING ACETOMINOPHEN-325 MG 325 MG TABLET 1 OR 2 TABS ORALLY EVERY FOUR HOURS PRN TAKING VOLTAREN 1 % GEL 4 GM TRANSDERMAL EVERY 4-HOURS NEEDED TAKING BLOOD GLUCOSE TEST - STRIP DIRECTED INTRADERMALLY BID DX: E11.9 TAKING HYDROCERIN - CREAM DIRECTED EXTERNALLY BID TO LOWER LEGS FROM KNEES DOWN TAKING LANCETS - MISCELLANEOUS ONE TOUCH DELICA DX: E11.9 TWICE A DAY TAKING CERTAVITE/ANTIOXIDANTS - TABLET 1 TABLET ORALLY ONCE A DAY TAKING CARVEDILOL 6.25 MG TABLET 1 TAB ORALLY BID TAKING LOSARTAN POTASSIUM 25 MG TABLET 1 TABLET ORALLY EVERY MORNING TAKING AMLODIPINE BESYLATE 2.5 MG TABLET 1 TABLET ORALLY EVERY MORING TAKING COMBIVENT RESPIMAT 20-100 MCG/ACT AEROSOL 1 PUFF INHALATION FOUR TIMES DAILY NEEDED TAKING FERROUS SULFATE 325 (65 FE) MG TABLET DELAYED RELEASE TAKE ONE TABLET BY MOUTH EVERY DAY TAKING FLUCONAZOLE 200 MG TABLET 2 TABLETS ORALLY DAILY TAKING MAY USE - - DIRECTED BOOT FOR RIGHT FOOT DAILY-DX: M19.071 TAKING GABAPENTIN 600 MG TABLET 1 TABLET ORALLY THREE TIMES DAILY TAKING ROSUVASTATIN CALCIUM 10 MG TABLET 1 TABLET ORALLY ONCE A DAY TAKING ASPIRIN 81 MG TABLET CHEWABLE 1 TABLET ORALLY ONCE A DAY TAKING OXYCODONE HCL 10 MG TABLET 1 TABLET NEEDED ORALLY EVERY 12 HRS PRN PAIN MDD 2 TAKING SKELAXIN 800 MG TABLET 1 TABLET ORALLY THREE TIMES A DAY NOT-TAKING MIRALAX - PACKET 1 PACKET MIXED WITH 8 OUNCES OF FLUID ORALLY ONCE A DAY NOT-TAKING OXYCODONE HCL 10 MG TABLET 1 TABLET NEEDED ORALLY EVERY 12 HRS PRN PAIN MDD 2 NOT-TAKING CEPHALEXIN 500 MG CAPSULE 1 TABLET ORALLY TID MEDICATION LIST REVIEWED AND RECONCILED WITH THE PATIENT PAST MEDICAL HISTORY CAD, S/P AWMI POST-OP LAMINECTOMY-05/2017 VERY SMALL APICAL THROMBUS, LVEF 40%-AKINESIS OF APEX, MID ANT, MID ANTEROSEPTAL, LV DIASTOLIC DYSFX BY 05/2017 TTE-ANTECOL/07/2017 RST S ISCHEMIA BUT FOCAL/GLOBAL ABNORMALITY, LVEF 28%, HIGH RISK-BILLKA/12/2017 CATH-NO SIGNIFICANT CAD-GABY/SP ICD 01/12/2018-GABY/02/19/19 TTE C LVEF 50-55%/NO JOAQUIM DYSFX-ETHAN HYPERLIPIDEMIA, 2B PAD T2DM NID COPD/EMPHYSEMA - FEV1 3.7 IN 2007, LIKELY FROM LONG-TERM HEAVY SMOKING ARON--INTOLERANT OF CPAP ED GERD CHRONIC 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 S/P EMERGENT ABDOMINAL AORTO BI-ILIAC ARTERY BYPASS GRAFT--REQUIRED 17 LITERS SALINE, 25 UNITS PRBC, 336 UNITS PLATELETS, 1 LITER FFP, 6 LITER CELL-SAVER ISCHEMIA LOWER EXTREMITIES WITH COMPARTMENT SYNDROME, REQUIRING BILAT 4 COMPATMENT FASCIOTOMIES SEPTIC SHOCK 2 PERFORATED VISCUS S/P EMERGENT LEFT COLECTOMY (C R COLOSTOMY), OPEN CHOLECYSTECTOMY, LIVER PACKING, ABTHERA REPLACMENT CHOLECYSTITIS, BILE LEAK POST CHOLECYSTECTYOMY LEFT COLECTOMY AND RT PARTIAL COLECTOMY WITH COLOSTOMY BRADYARHYTHMIA WITH CARDIAC ARREST/IWMI INFECTED AORTO BI-ILIAC BYPASS GRAFT C 2 CHRONIC DISSEMINATATED CANDIDIASIS AND S. EPIDERMIDIS BACTEREMIA ENTEROCTANEOUS FISTULAE H/O ACRODERMATITIS ENTEROPTHICA (ZINC-DEFICIENCY DERMATITIS) PROLONGED ICU/[facility] VENTILATRION WITH TRACHEOSTOMY, SUBSEQUENT CLOSURE OF TRACH H/O STAGE 4 SACRAL DECUBITUS PSEUDOMONUS OSTEOMYELITIS HIT--HEPARIN INDUCED THROMBOCYTOPENIA H/O RECURRENT GOUT, L PODAGRA LUMBAR DJD- L3/4 MOD CCS, L4/5 MILD C GRADE 1 LITHESIS AND L L4 COMPRESSION IN NF, L5/S1 DIFFUSE BULGE C MINIMAL TS COMPRESSION BY 04/2017 CT LS SPINE RECURRENT UTI, OAB, CHRONIC PYURIA ALLERGIES REMERON: NIGHTMARES - SIDE EFFECTS WELLBUTRIN: AGITATION - SIDE EFFECTS ZOLOFT: DIARRHEA - SIDE EFFECTS PROZAC: DEPRESSION - SIDE EFFECTS SOCIAL HISTORY GENERAL: TOBACCO USE ARE YOU A:CURRENT SMOKER ARE YOU INTERESTED IN QUITTING?NOT READY TO QUIT COUNSELED THE PATIENT ON SMOKING EFFECTS, EDUCATION [id number]/29/2021 HOW MANY CIGARETTES A DAY DO YOU SMOKE?6-10 HOW SOON AFTER YOU WAKE UP DO YOU SMOKE YOUR FIRST CIGARETTE?AFTER 60 MIN HOW OFTEN DO YOU SMOKE CIGARETTES?EVERY DAY PATIENT COUNSELED ON THE DANGERS OF TOBACCO USE AND URGED TO QUIT:03/13/2021 SMOKING CESSATION INFORMATION GIVEN03/13/2021 LATEX QUESTIONNAIRE LATEX ALLERGY : HAVE YOU EVER DEVELOPED ANY TYPE OF REACTION AFTER HANDLING LATEX PRODUCTS SUCH RUBBER GLOVES, CONDOMS, DIAPHRAGMS, BALLOONS, SOCKS, OR UNDERWEAR?NO LATEX ALLERGY : HAVE YOU EVER DEVELOPED ANY TYPE OF REACTION DURING OR AFTER DENTAL APPOINTMENT, VAGINAL/RECTAL EXAMINATION, SURGICAL PROCEDURE, OR ANY OTHER EXPOSURE?NO LATEX RISK : HAVE YOU EVER HAD ANY DIFFICULTY BREATHING OR HIVES AFTER EATING OR HANDLING ANY FRUITS, OR VEGETABLES; SUCH KIWI, BANANAS, STONE FRUITS, OR CHESTNUTSNO LATEX RISK : DO YOU HAVE A PREVIOUS PERSONAL HISTORY OF MORE THAN NINE SURGERIES, SPINA BIFIDA, OR REPEATED CATHERIZATIONS? YES - PLEASE INDICATE : > 9 SURGERIES LATEX RISK : ARE YOU FREQUENTLY EXPOSED TO LATEX PRODUCTS IN YOUR OCCUPATION?NO DATE ASKED : 03/13/2021 ALCOHOL USE: NO. BMI CARE GOAL FOLLOW-UP ABOVE NORMAL BMI FOLLOW-UPGIVING ENCOURAGEMENT TO EXERCISE ALCOHOL SCREENING POINTS: 0, INTERPRETATION: NEGATIVE. RECREATIONAL DRUG USE DRUG USE?NO CAFFEINE CAFFEINE USE?YES 2 CUPS PER DAY HIV / HEP-C SCREENING HIV TEST OFFERED TO PATIENT:YES DATE OFFERED:10/19/2019 TEST ACCEPTED:NO HEP-C TEST OFFERED TO PATIENT:YES DATE OFFERED:10/19/2019 REASON:PATIENT DECLINED TEST ACCEPTED:NO REASON:PATIENT DECLINED BROCHURE PROVIDED TO PATIENTYES GNOSTICISM [id number] ZOROASTRIAN LANGUAGE LANGUAGES SPOKEN:SAMI EDUCATION LEVEL OF EDUCATION:NOT FINISHED COLLEGE 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, 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 DIET: REGULAR. EXERCISE: WALKING. MARITAL STATUS: -MATEO. PATIENT DESCRIBES PAIN : HAVE IT ALL THE TIME, SHARP, FROM 0-10, WHAT LEVEL IS YOUR PAIN TODAY? 10, PRECIPITATING FACTORS WORSE WITH ACTIVITY, ALLEVIATING FACTORS PAIN MEDS. - HAS THE PATIENT BEEN EDUCATED REGARDING HIS/HER PLAN OF CARE?YES HAS THE PATIENT BEEN EDUCATED REGARDING PAIN, THE RISK FOR PAIN, THE IMPORTANCE OF EFFECTIVE PAIN MANAGEMENT, AND THE PAIN ASSESSMENT PROCESS?YES ADVANCE DIRECTIVE ADVANCE DIRECTIVE DISCUSSED WITH PATIENT:YES PATIENT STATES HE HAS POA- MATEO AND HE THISNKS HE HAS [id number] ([phone]) REVIEW OF SYSTEMS CONSTITUTIONAL: ANY RECENT FEVER NO . CHILLS NO . WEIGHT CHANGE OF UNKNOWN REASONS NO . GASTROENTEROLOGY: NEW UNEXPLAINABLE CHANGES IN BOWEL CONTROL NO . CONSTIPATION NO . GENITOURINARY: ANY NEW CHANGE IN BLADDER CONTROL? NO . NEUROLOGY: NEW ONSET DIZZINESS OR NEUROLOGICAL CHANGES NOT MENTIONED NO . NEW NUMBNESS OR PAIN PATTERNS NOT MENTIONED AND PERTINENT TO TODAY'S VISIT NO . CARDIOLOGY: NEW CHEST PRESSURE NO . PATIENT DENIES NO . RESPIRATORY: UNEXPLAINABLE COUGH NO . NEW SHORTNESS OF BREATH NO . VITAL SIGNS WT 185.5 LBS, HT 69 IN, BMI 27.39 INDEX, BP 103/59 MM HG, HR 66 /MIN, RR 18 /MIN, TEMP 97.8 F, OXYGEN SAT % 96%, SAFE IN ENV? (Y/N) YES, NA INITIALS TX 11:39, REVIEWED BY: AMAURI WYLIE MA. EXAMINATION GENERAL EXAMINATION: GENERALNO ACUTE DISTRESS, WELL NOURISHED AND HYDRATED. PSYCHAPPROPRIATE MOOD AND AFFECT . LUNGS:CLEAR TO AUSCULTATION BILATERALLY, NO WHEEZES, RHONCHI, RALES. HEART:NO MURMURS, REGULAR RATE AND RHYTHM. ASSESSMENTS LUMBAR SPONDYLOLYSIS - M43.06 (PRIMARY) TREATMENT LUMBAR SPONDYLOLYSIS NOTES: 66 OLD MALE IN FOR CHRONIC PAIN FOLLOW-UP. GIVEN PRESENTING SYMPTOMS RECOMMEND CONTINUATION OF CURRENT MEDICATION REGIMEN WITH FOLLOW-UP IN 3 MONTHS. PATIENT HAS EXPRESSED UNDERSTANDING OF AND WAS IN AGREEMENT WITH TREATMENT PLAN. GIVEN TIME TO ASK QUESTIONS AND EXPRESS CONCERNS. [employer] REVIEWED AND DEMONSTRATES COMPLLIANCE. (REF # [id number] ) BRINGS IN MEDICATIONS WHICH IS APPROPRIATE FOR WHAT WAS DISPENSED. RECENT URINE TOXICOLOGY REVIEWED. NO UNAUTHORIZED MEDICATIONS. NO ILLICIT SUBSTANCES AND PRESCRIBED MEDICATIONS WERE PRESENT. PROCEDURES PN WORKMANS' COMP OPINION IN YOUR OPINION, WAS THE INCIDENT THAT THE PATIENT DESCRIBED THE COMPETENT MEDICAL CAUSE OF THIS INJURY/ILLNESS? YES ARE THE PATIENT'S COMPLAINTS CONSISTENT WITH HIS/HER HISTORY OF THE INJURY/ILLNESS? YES IS THE PATIENT'S HISTORY OF THE INJURY/ILLNESS CONSISTENT WITH YOUR OBJECTIVE FINDING? YES WHAT IS THE PERCENTAGE OF TEMPORARY IMPAIRMENT? TOTAL = 100% IS THE PATIENT WORKING? NO DOCTOR ON SITE: LUX CARPIO MD PROCEDURE CODES FA211 ESTABILISHED PATIENT [facility] FAC[facility] CHARGE DISPOSITION & COMMUNICATION ELECTRONICALLY SIGNED BY KAELA JUNIOR ON 03/15/2021 AT 08:37 AM EDT DISCLAIMER : THIS IS A VISIT SUMMARY EXTRACTED FROM THE [facility] CHART. IT IS NOT A COPY OF THE [facility] PROGRESS NOTE. MARIAELENA
== END ==
LOC: M PAIN 11:30
PROVIDERS: ATTEND Family Medicine
DX: M43.06 Spondylolysis, lumbar region (principal); I25.10 Atherosclerotic heart disease of native coronary artery without angina pectoris; I25.2 Old myocardial infarction; E78.5 Hyperlipidemia, unspecified; E11.51 Type 2 diabetes mellitus with diabetic peripheral angiopathy without gangrene; J44.9 Chronic obstructive pulmonary disease, unspecified; G47.33 Obstructive sleep apnea (adult) (pediatric); N52.9 Male erectile dysfunction, unspecified; K21.9 Gastro-esophageal reflux disease without esophagitis; F32.9 Major depressive disorder, single episode, unspecified; F41.1 Generalized anxiety disorder; E55.9 Vitamin D deficiency, unspecified; F17.210 Nicotine dependence, cigarettes, uncomplicated; Z90.49 Acquired absence of other specified parts of digestive tract; Z88.8 Allergy status to other drugs, medicaments and biological substances

== ENCOUNTER 2021-04-09 19:19 | Inpatient (IN) | payer OTHER ==
[~2021-04-09] VITALS: Ht 175.3 cm; Wt 84.1 kg
[2021-04-09 23:21] LABS: BASO % 0.3 % (0.0-1.0); EOS # 0.1 10^3/uL (0.0-0.5); EOS % 0.9 % (0.0-3.0); HEMATOCRIT 46.3 % (42.0-52.0); LYMPH # 1.3 10^3/uL (1.5-5.0); LYMPH % 13.6 % (24.0-44.0); MEAN CORPUSCULAR HEMOGLOBIN 31.8 pg (27.0-33.0); MEAN CORPUSCULAR HGB CONC 32.4 g/dl (32.0-36.5); MEAN CORPUSCULAR VOLUME 98.1 fl (80.0-96.0); MONO # 0.9 10^3/uL (0.0-0.8); MONO % 9.4 % (2.0-8.0); NEUTROPHILS # 7.3 10^3/uL (1.5-8.5); NEUTROPHILS % 75.4 % (36.0-66.0); PLATELET COUNT, AUTOMATED 190 10^3/uL (150-450); RED BLOOD COUNT 4.72 10^6/uL (4.30-6.10); WHITE BLOOD COUNT 9.7 10^3/uL (4.0-10.0)
[2021-04-09 23:42] LABS: ERYTHROCYTE SEDIMENTATION RATE 13 mm/hr (0-20)
[2021-04-09] MEDS ORDERED: ONDANSETRON 4MG/2ML VIAL IV ONE (23:45)
[2021-04-09] MEDS ORDERED: MORPHINE 4 MG/ML 1ML VIAL/SYRINGE (J2270) IV PRN (23:45)
[2021-04-09] MEDS ORDERED: cefTRIAXone SOD 1 GM in D5W MINI-BAG PLUS 50 ML IV ONE (23:45)
[2021-04-09 23:48] LABS: ALBUMIN 3.4 GM/DL (3.2-5.2); BILIRUBIN,DIRECT 0.2 MG/DL (0.0-0.2); BILIRUBIN,TOTAL 0.3 MG/DL (0.2-1.0); C REACTIVE PROTEIN QUANTITATIV 14.1 MG/DL (0.00-0.30); CALCIUM LEVEL 8.9 MG/DL (8.8-10.2); CREATININE FOR GFR 1.56 MG/DL (0.70-1.30); GLOMERULAR FILTRATION RATE 47.8 (>49); POTASSIUM SERUM 4.5 MEQ/L (3.5-5.1); TOTAL PROTEIN 7.3 GM/DL (6.4-8.2)
[2021-04-10 01:37] LABS: RSV AMPLIFICATION NEGATIVE (NEGATIVE)
[2021-04-10] MEDS ORDERED: VANCOMYCIN HCL 750 MG, VIAL MATE ADAPTER 1 EACH in NS 250 ML IV ONE (03:55)
[2021-04-10] MEDS ORDERED: ACETAMINOPHEN TAB 650MG DOSE (2X325MG) PO PRN (04:25)
[2021-04-10] MEDS ORDERED: GLUCOSE 4GM CHEW TABLET PO PRN (04:25)
[2021-04-10] MEDS ORDERED: MAALOX 30 ML SUSP *UDC PO PRN (04:25)
[2021-04-10] MEDS ORDERED: MOM 30ML SUSPENSION UDC PO PRN (04:25)
[2021-04-10] MEDS ORDERED: DEXTROSE 50% 50 ML SYRINGE IV PRN (04:25)
[2021-04-10] MEDS ORDERED: GLUCAGON INJ 1MG VIAL SC PRN (04:25)
[2021-04-10] MEDS ORDERED: HYDROMORPHONE HCL 0.5 MG/ 0.5 ML SYRINGE (J1170 PER 1) IV ONE (04:35)
--- NOTE | 2021-04-10 04:50 | HPEPDOC ---
[facility] Medical History & Physical Date of Admission Apr 10, 2021 Date of Service: Apr 10, 2021 Attending Physician: ELLIE GALINDO MD History and Physical CHIEF COMPLAINT: [66 y/o male with a cc of rle redness, pain x1 day] HISTORY OF PRESENT ILLNESS: [This is a 66 y/o wheelchair bound male with a pmh of multiple back surgeries, cad, aicd placement, hld, htn, juan not on cpap, dm not currently on medication, copd, ckd who presents to our ed on 04/09 with a cc of rle redness and pain x1 day. Patient was seen by his pcp who has referred him here due to the rapid nature of the spread of the redness. Patient states that other than the pain and redness, he feels fine. Patient states that his pain is constant, severe in nature and describes it as stabbing in quality. Patient states that he has noted no drainage from the leg. Patient, at the time of my exam, denies fevers, chills, chest pain, sob, abd pain, n/v/d/c, dysuria, pedal edema.] PAST MEDICAL HISTORY: 1. [See HPI PAST SURGICAL HISTORY: 1. [AICD placement]. 2. [Unspec. left leg vein vascular repair]. 3. [Colostomy d/t bowel perforation 4. Hernia repair x3 5. Appendectomy 6. Cholecystectomy 7. Unspec back surgery x3 8. Unspec. b/l shoulder repairs]. SOCIAL HISTORY: Tobacco use:[Current 3/4 ppd smoker] ETOH: [Denies] Illicit drug use: [Denies] FAMILY HISTORY: Reviewed - none pertinent ALLERGIES: Please see below. REVIEW OF SYSTEMS: CONSTITUTIONAL: [Denies fevers, chills]. HEENT: [Denies uri sx]. CARDIOVASCULAR: [See HPI]. RESPIRATORY: [See HPI]. GASTROINTESTINAL: [See HPI]. GENITOURINARY: [See HPI]. SKIN: [See HPI]. MUSCULOSKELETAL: [Denies acute joint pain]. NEUROLOGICAL: [Denies syncope, paresthesias]. ENDOCRINE: [Hx of DM]. HEMATOLOGIC/LYMPHATIC: [Denies hx of easy bruising]. HOME MEDICATIONS: Please see below. PHYSICAL EXAMINATION: VITAL SIGNS: Please see below. GENERAL APPEARANCE: [This is a very uncomfortable appearing 66 y/o male. He is alert and not in any respiratory distress.]. HEENT: [No mass or lesion. EOMI. No scleral icterus. Nares patent. Oral mucosa moist.]. CARDIOVASCULAR: [Regular rate, rhythm. No murmurs, rubs, gallops]. LUNGS: [Good air flow b/l. No wheezing, rales, rhonchi.]. ABDOMEN: [Soft, nontender. Right sided colostomy]. MUSCULOSKELETAL: [No joint deformity.]. EXTREMITIES: [Right lower extremity shows extensive erythema extending from the ankle to the knee. There are no areas of obvious drainage, fluctuance or crepitus. The area is very tender. There is no pedal edema noted. Pulses are intact.]. NEUROLOGICAL: [Speech clear. A+Ox3. No focal deficits.]. PSYCHIATRIC: [Mood and affect appear appropriate.]. LABORATORY DATA: See below. IMAGING: [Duplex US and CT of RLE performed in the ED. Official reports not posted at the time of the writing of this note. Phone report from radiology shows no evidence of dvt, abscess, fasciitis. ] MICROBIOLOGY: Please see below. ASSESSMENT: [his is a 66 y/o wheelchair bound male with a pmh of multiple back surgeries, cad, aicd placement, hld, htn, juan not on cpap, dm not currently on medication, copd, ckd who presents to our ed on 04/09 with a cc of rle redness and pain x1 day.]. . PLAN: 1. [RLE cellulitis - Begin vancomycin. - MRSA pcr ordered - can consider de-escalation if negative and redness improves - Pain control with percocet, morphine - No sepsis or sirs criteria - no need for fluid boluses at this time - tylenol for fevers if patient begins to have them - admit to med surg for iv abx 2. DM - patient states that he does not check sugars or take meds at home - will place on achs fingersticks and coverage for now. can d/c if he shows to not need them 3. CAD - stable - continue asa 4. HTN - continue amlodipine, carvedilol, losartan 5. Chronic back pain - holding at home opioid in favor of inpatient pain regimen - can continue gabapentin, metaxalone 6. HLD - conintue rosuvastatin 7. GERD - continue protonix 8. COPD - not in acute exacerbation - continue at home inhaler 9. Anxiety/depression - continue paxil 10. CKD - patient's cr appears to be close to baseline DVT prophylaxis - lovenox]. Vital Signs Vital Signs Date Time Temp Pulse Resp B/P (MAP) Pulse Ox O2 Delivery O2 Flow Rate FiO2 04/10/21 00:33 17 04/09/21 22:45 04/09/21 19:19 97.9 76 97 Room Air Laboratory Data Labs 24H Laboratory Tests 2 04/09/21 23:04: Immature Granulocyte % (Auto) 0.4, Neutrophils (%) (Auto) 75.4H, Lymphocytes (%) (Auto) 13.6L, Monocytes (%) (Auto) 9.4H, Eosinophils (%) (Auto) 0.9, Basophils (%) (Auto) 0.3, Neutrophils # (Auto) 7.3, Lymphocytes # (Auto) 1.3L, Monocytes # (Auto) 0.9H, Eosinophils # (Auto) 0.1, Basophils # (Auto) 0.0, Nucleated Red Blood Cells % (auto) 0.0, Erythrocyte Sedimentation Rate 13, Anion Gap 5L, Glomerular Filtration Rate 47.8L, Calcium Level 8.9, Total Bilirubin 0.3, Direct Bilirubin 0.2, Aspartate Amino Transf (AST/SGOT) 61H, Alanine Aminotransferase (ALT/SGPT) 86H, Alkaline Phosphatase 136H, C-Reactive Protein, Quantitative 14.10H, Total Protein 7.3, Albumin 3.4, Albumin/Globulin Ratio 0.9 04/10/21 00:42: Coronavirus (COVID-19)(PCR) NEGATIVE, Influenza Type A (RT-PCR) NEGATIVE, Influenza Type B (RT-PCR) NEGATIVE, Respiratory Syncytial Virus (PCR) NEGATIVE CBC/BMP Laboratory Tests 04/09/21 23:04 Microbiology Microbiology 04/10/21 Blood Culture, Received Pending 04/09/21 Blood Culture, Received Pending Home Medications Scheduled Amlodipine Besylate (Amlodipine Besylate) 2.5 Mg Tablet, 2.5 MG PO QHS Aspirin (Aspirin) 81 Mg Tab.chew, 81 MG PO DAILY Carvedilol (Carvedilol) 6.25 Mg Tablet, 6.25 MG PO BID Ferrous Sulfate (Ferrous Sulfate) 325 Mg Tab, 325 MG PO DAILY Fluconazole (Fluconazole) 200 Mg Tab, 400 MG PO DAILY Gabapentin (Gabapentin) 300 Mg Capsule, 600 MG PO TID Ipratropium/Albuterol Sulfate (Combivent Respimat 20-100 Mcg) 4 Gm Mist.inhal, 1 PUFF INH QID Losartan Potassium (Losartan Potassium) 25 Mg Tablet, 25 MG PO QHS Metaxalone (Metaxalone) 800 Mg Tablet, 800 MG PO TID Mineral Oil/Petrolatum,White (Therapeutic Moisturizing Cream) 454 Gm Cream..g., 1 APPLIC TOP DAILY LOWER LEGS Multivitamin/Iron/Folic Acid (Certavite-Antioxidant Tablet) 1 Tab Tab, 1 TAB PO DAILY Pantoprazole Sodium (Pantoprazole Sodium) 40 Mg Tab, 40 MG PO DAILY Paroxetine HCl (Paroxetine HCl) 40 Mg Tab, 40 MG PO DAILY Rosuvastatin Calcium (Crestor) 10 Mg Tab, 10 MG PO DAILY Scheduled PRN Acetaminophen (Acetaminophen) 325 Mg Tablet, 650 MG PO Q4H PRN for PAIN LEVEL 1- 5 Oxycodone HCl (Oxycodone HCl) 10 Mg Tab, 10 MG PO Q12H PRN for PAIN LEVEL 5-10 Allergies Coded Allergies: pregabalin (Verified Allergy, Intermediate, SOB, 02/18/19) bupropion (Verified Allergy, Mild, rash, 02/18/19) fluoxetine (Verified Allergy, Mild, rash, 02/18/19) sertraline (Verified Allergy, Unknown, 02/18/19) mirtazapine (Verified Adverse Reaction, Mild, nightmares, 02/18/19) oxymorphone (Verified Adverse Reaction, Mild, incontinence, 02/18/19) A-FIB/CHADSVASC A-FIB History Current/History of A-Fib/PAF?: No SHITAL HIGGINS Apr 10, 2021 04:50
[2021-04-10] MEDS ORDERED: GABA-282 PO (04:51)
[2021-04-10] MEDS ORDERED: [UNRECOGNIZED DRUG - CODE] TOP (04:51)
[2021-04-10] MEDS ORDERED: COMBAER6 INH (04:51)
[2021-04-10] MEDS ORDERED: AMLO2.5T3 PO (04:51)
[2021-04-10] MEDS ORDERED: CARV6.25 PO (04:51)
[2021-04-10] MEDS ORDERED: META1TAB22 PO (04:51)
[2021-04-10] MEDS ORDERED: HOME MED LIST COMPLETE! XX SCH (04:55)
[2021-04-10 06:45] LABS: INR 0.95; PARTIAL THROMBOPLASTIN TIME 29.1 SECONDS (24.2-38.5); PROTHROMBIN TIME 12.9 SECONDS (12.5-14.3)
[2021-04-10] MEDS: COMBIVENT RESPIMAT 100-20MCG INHALER 4GM INH SCH ×4 (08:00→19:45)
[2021-04-10] MEDS: ENOXAPARIN 30MG/0.3ML SYRINGE (J1650 PER 10MG) SC SCH (09:00)
[2021-04-10] MEDS: METAXALONE 800 MG TABLET PO SCH ×3 (09:00→20:58)
[2021-04-10] MEDS: LOSARTAN 25 MG TAB PO SCH ×2 (09:33→21:00)
[2021-04-10] MEDS: HumaLOG INSULIN (NovoLOG) PER UNIT SC SCH ×4 (09:33→20:56)
[2021-04-10] MEDS: VANCOMYCIN HCL 1,000 MG, VIAL MATE ADAPTER 1 EACH in NS 250 ML IV SCH (09:58)
[2021-04-10] MEDS: PARoxetine 20MG TABLET PO SCH (09:59)
[2021-04-10] MEDS: FERROUS SULFATE 325MG TAB PO SCH (09:59)
[2021-04-10] MEDS: PANTOPRAZOLE 40MG TAB (PROTONIX) PO SCH (09:59)
[2021-04-10] MEDS: CARVedilol 6.25 MG TAB PO SCH ×2 (09:59→21:00)
[2021-04-10] MEDS: GABAPENTIN 300 MG CAP PO SCH ×3 (09:59→20:57)
[2021-04-10] MEDS: ASPIRIN 81 MG CHEW TABLET PO SCH (09:59)
[2021-04-10] MEDS: ROSUVASTATIN 10 MG TAB (CRESTOR) PO SCH (09:59)
[2021-04-10] MEDS: PERCOCET 5MG/325MG TAB PO PRN ×2 (10:00→16:05)
--- NOTE | 2021-04-10 10:17 | REP ---
INDICATION: r/o gangrene right calf. Repeat dictation. Preliminary report is provided at the time of the exam by valentina ROE. COMPARISON: None. TECHNIQUE: Helical scanning is acquired and 3 mm axial images re-formatted. Coronal and sagittal MPR images are provided. FINDINGS: Preliminary digital wood machine carver radiograph shows diffuse osteopenia. There is extensive fatty involution throughout the skeletal muscle of the right calf consistent with denervation myopathy. There is no evidence of abscess, soft tissue gas, or opaque foreign body. There is mild vascular calcification. No bony erosive or destructive lesion is appreciated. No evidence to suggest periosteal reaction. No soft tissue mass seen. 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 There is no evidence to suggest abscess, gas-forming infection, osteomyelitis or other acute bony abnormality. <Electronically signed by Jack Uribe > 04/10/21 [id number]
--- NOTE | 2021-04-10 10:18 | REP ---
INDICATION: leg swelling, redness. Repeat dictation. Preliminary report is provided at the time of the exam by valentina ROE. COMPARISON: None. TECHNIQUE: Right {lower extremity duplex venous scanning is performed from the groin to the ankle level. FINDINGS: The deep veins are anechoic and fully compressible from the groin to the popliteal fossa in the right lower extremity. Color flow imaging is homogeneous. Spectral Doppler interrogation demonstrates intact respiratory variation in flow and normal manual augmentation of flow. There is no evidence of deep vein thrombosis above the knee. There is no evidence of DVT in the visualized calf veins. Doppler interrogation of the contralateral common femoral vein shows normal symmetric respiratory phasicity. IMPRESSION: No evidence of DVT in the right lower extremity femoropopliteal veins. No DVT in the visible portions of the calf veins. <Electronically signed by Jack Uribe > 04/10/21 [id number]
[2021-04-10 15:32] VITALS: BP 110/60
[2021-04-10] MEDS: FLUCONAZOLE 100 MG TAB PO SCH (16:04)
--- NOTE | 2021-04-10 18:22 | IPNPDOC ---
Subjective Date Seen The patient was seen on 04/10/21. Subjective Chief Complaint/HPI Mr. Dolan reports that his leg feels a little better than it did, but it is still red and tender. Nursing reports that they think the erythema has spread beyond the marked margin overnight. General: Reports: Normal Appetite Constitutional: Denies: Chills, Fever Pulmonary: Denies: Dyspnea, Cough Cardiovascular: Denies: Chest Pain, Palpitations Genitourinary: Denies: Dysuria Musculoskeletal: Reports: Leg Pain (right) Psych: Reports: Mood Normal Objective Physical Examination General Exam: Positive: No Acute Distress Eye Exam: Positive: Conjunctiva & lids normal; Negative: Sclera icteric ENT Exam: Positive: Mucous membr. moist/pink Neck Exam: Negative: Lymphadenopathy Chest Exam: Positive: Clear to auscultation, Normal air movement Heart Exam: Positive: Rate Normal, Normal S1, Normal S2 Abdomen Exam: Positive: Normal bowel sounds, Soft; Negative: Tenderness Extremity Exam: Positive: Edema, Tenderness, Swelling (There seems to be more dependent edema on the lateral side of the right leg), Other (The erythema seems to have spread slightly beyond the marked margins from when he was admitted. ) Psych Exam: Positive: Mood NL, Oriented x 3 Assessment /Plan Problems (1) Cellulitis of right leg Status: Acute Problem Specific Plan: Monitor Clinically, Repeat Labs Problem Text: His erythema has spread slightly beyond the marked margins. I r emarked the margins with today's date will continue on his current regimen at this time. I do think he is on the right medications, they just have not had enough time to work yet. (2) Type 2 diabetes mellitus Status: Chronic Problem Specific Plan: Repeat Tests Problem Text: Continue insulin sliding scale and current regimen. Monitor. Plan/VTE VTE Prophylaxis Ordered?: Yes (Lovenox) VS, I&O, 24H, Fishbone Vital Signs/I&O Vital Signs Date Time Temp Pulse Resp B/P (MAP) Pulse Ox O2 Delivery O2 Flow Rate FiO2 04/10/21 16:50 18 Room Air 04/10/21 15:32 97.6 56 110/60 (77) 93 I&O- Last 24 Hours up to 6 AM 04/10/21 06:00 Intake Total 50 ml Balance 50 ml Laboratory Data 24H LABS Laboratory Tests 2 04/09/21 23:04: Immature Granulocyte % (Auto) 0.4, Neutrophils (%) (Auto) 75.4H, Lymphocytes (%) (Auto) 13.6L, Monocytes (%) (Auto) 9.4H, Eosinophils (%) (Auto) 0.9, Basophils (%) (Auto) 0.3, Neutrophils # (Auto) 7.3, Lymphocytes # (Auto) 1.3L, Monocytes # (Auto) 0.9H, Eosinophils # (Auto) 0.1, Basophils # (Auto) 0.0, Nucleated Red Blood Cells % (auto) 0.0, Erythrocyte Sedimentation Rate 13, Anion Gap 5L, Glomerular Filtration Rate 47.8L, Calcium Level 8.9, Total Bilirubin 0.3, Direct Bilirubin 0.2, Aspartate Amino Transf (AST/SGOT) 61H, Alanine Aminotransferase (ALT/SGPT) 86H, Alkaline Phosphatase 136H, C-Reactive Protein, Quantitative 14.10H, Total Protein 7.3, Albumin 3.4, Albumin/Globulin Ratio 0.9 04/10/21 00:42: Coronavirus (COVID-19)(PCR) NEGATIVE, Influenza Type A (RT-PCR) NEGATIVE, Influenza Type B (RT-PCR) NEGATIVE, Respiratory Syncytial Virus (PCR) NEGATIVE 04/10/21 06:18: Prothrombin Time 12.9, Prothromb Time International Ratio 0.95, Activated Partial Thromboplast Time 29.1 CBC/BMP Laboratory Tests 04/09/21 23:04 Microbiology Microbiology 04/10/21 Blood Culture, Received Pending 04/09/21 Blood Culture, Received Pending Amaury Akins MD Apr 10, 2021 18:22
[2021-04-10 20:00] VITALS: BP 110/59
[2021-04-11] MEDS: MORPHINE 2 MG/ML 1ML VIAL (J2270) IV PRN ×3 (00:40→09:59)
[2021-04-11] MEDS: VANCOMYCIN HCL 1,000 MG, VIAL MATE ADAPTER 1 EACH in NS 250 ML IV SCH (02:09)
[2021-04-11 05:41] VITALS: BP 113/56
[2021-04-11] MEDS: PERCOCET 5MG/325MG TAB PO PRN ×4 (05:59→20:45)
[2021-04-11 06:33] LABS: HEMATOCRIT 42.4 % (42.0-52.0); HEMOGLOBIN 13.2 g/dl (13.5-17.5); MEAN CORPUSCULAR HEMOGLOBIN 31.4 pg (27.0-33.0); MEAN CORPUSCULAR HGB CONC 31.1 g/dl (32.0-36.5); MEAN CORPUSCULAR VOLUME 100.7 fl (80.0-96.0); PLATELET COUNT, AUTOMATED 171 10^3/uL (150-450); RED BLOOD COUNT 4.21 10^6/uL (4.30-6.10); WHITE BLOOD COUNT 6.4 10^3/uL (4.0-10.0)
[2021-04-11 06:55] LABS: BLOOD UREA NITROGEN 19 MG/DL (7-18); C REACTIVE PROTEIN QUANTITATIV 7.83 MG/DL (0.00-0.30); CALCIUM LEVEL 8.1 MG/DL (8.8-10.2); CARBON DIOXIDE LEVEL 28 MEQ/L (21-32); CHLORIDE LEVEL 108 MEQ/L (98-107); CREATININE FOR GFR 1.24 MG/DL (0.70-1.30); GLOMERULAR FILTRATION RATE > 60.0 (>49); GLUCOSE, FASTING 132 MG/DL (70-100); MAGNESIUM LEVEL 2.1 MG/DL (1.8-2.4); POTASSIUM SERUM 4.2 MEQ/L (3.5-5.1); SODIUM LEVEL 140 MEQ/L (136-145)
[2021-04-11 07:16] LABS: HEMOGLOBIN A1c 8.2 %
[2021-04-11] MEDS: HumaLOG INSULIN (NovoLOG) PER UNIT SC SCH ×4 (07:30→20:48)
[2021-04-11] MEDS: COMBIVENT RESPIMAT 100-20MCG INHALER 4GM INH SCH ×4 (07:33→19:46)
[2021-04-11] MEDS: ENOXAPARIN 30MG/0.3ML SYRINGE (J1650 PER 10MG) SC SCH (08:21)
[2021-04-11] MEDS: GABAPENTIN 300 MG CAP PO SCH ×3 (08:23→20:45)
[2021-04-11] MEDS: METAXALONE 800 MG TABLET PO SCH ×3 (08:23→20:46)
[2021-04-11] MEDS: ROSUVASTATIN 10 MG TAB (CRESTOR) PO SCH (08:23)
[2021-04-11] MEDS: PANTOPRAZOLE 40MG TAB (PROTONIX) PO SCH (08:24)
[2021-04-11] MEDS: PARoxetine 20MG TABLET PO SCH (08:24)
[2021-04-11] MEDS: ASPIRIN 81 MG CHEW TABLET PO SCH (08:24)
[2021-04-11] MEDS: FERROUS SULFATE 325MG TAB PO SCH (08:24)
[2021-04-11] MEDS: FLUCONAZOLE 100 MG TAB PO SCH (08:25)
[2021-04-11 08:35] VITALS: BP 142/64
[2021-04-11] MEDS: CARVedilol 6.25 MG TAB PO SCH ×2 (09:00→20:47)
[2021-04-11] MEDS: cefTRIAXone SOD 1 GM in D5W MINI-BAG PLUS 50 ML IV SCH (12:07)
--- NOTE | 2021-04-11 12:57 | IPNPDOC ---
Subjective Date Seen The patient was seen on 04/11/21. Subjective Chief Complaint/HPI Mr. Dolan reports that his leg feels quite good now. There is still some tenderness when people touch it, but other than this is not really bothering him. Nursing reports that the erythema has not expanded further. General: Reports: Normal Appetite Constitutional: Denies: Chills, Fever Pulmonary: Denies: Cough Cardiovascular: Denies: Chest Pain, Palpitations Genitourinary: Denies: Dysuria Psych: Reports: Mood Normal Objective Physical Examination General Exam: Positive: No Acute Distress Eye Exam: Positive: Conjunctiva & lids normal; Negative: Sclera icteric ENT Exam: Positive: Mucous membr. moist/pink Neck Exam: Negative: Lymphadenopathy Chest Exam: Positive: Clear to auscultation, Normal air movement Heart Exam: Positive: Rate Normal, Normal S1, Normal S2 Abdomen Exam: Positive: Normal bowel sounds, Soft; Negative: Tenderness Extremity Exam: Positive: Edema, Tenderness (The intensity of the erythema on his right lower extremity is decreased from yesterday and it is less tender to the touch), Swelling (Reduced from yesterday) Psych Exam: Positive: Mood NL, Oriented x 3 Assessment /Plan Problems (1) Cellulitis of right leg Status: Acute Response to Treatment: Improving Problem Specific Plan: Monitor Clinically, Repeat Labs Problem Text: The erythema is now within the margin marked yesterday. The intensity of it has decreased. His MRSA screen was negative and so I will stop the vancomycin but I will continue the IV ceftriaxone at this point in time. (2) Type 2 diabetes mellitus Status: Chronic Problem Specific Plan: Repeat Tests Problem Text: Continue insulin sliding scale and current regimen. Monitor. Plan/VTE VTE Prophylaxis Ordered?: Yes (Lovenox) VS, I&O, 24H, Fishbone Vital Signs/I&O Vital Signs Date Time Temp Pulse Resp B/P (MAP) Pulse Ox O2 Delivery O2 Flow Rate FiO2 04/11/21 12:38 16 04/11/21 08:35 58 142/64 (90) 04/11/21 06:33 Room Air 04/11/21 05:41 97.6 91 I&O- Last 24 Hours up to 6 AM 04/11/21 06:00 Intake Total 1070 ml Output Total 550 ml Balance 520 ml Laboratory Data 24H LABS Laboratory Tests 2 04/11/21 06:14: Methicillin-Resist S.aureus DNA PCR NOT DETECTED 04/11/21 06:21: Nucleated Red Blood Cells % (auto) 0.0, Anion Gap 4L, Glomerular Filtration Rate > 60.0, Estimated Mean Plasma Glucose 189H, Hemoglobin A1c 8.2, Calcium Level 8.1L, Magnesium Level 2.1, C-Reactive Protein, Quantitative 7.83H CBC/BMP Laboratory Tests 04/11/21 06:21 Microbiology Microbiology 04/10/21 Blood Culture - Preliminary, Resulted No growth after 24 hours . All specim... 04/09/21 Blood Culture - Preliminary, Resulted No growth after 24 hours . All specim... Amaury Akins MD Apr 11, 2021 12:57
[2021-04-11 14:00] VITALS: BP 130/60
[2021-04-11] MEDS: LOSARTAN 25 MG TAB PO SCH (20:46)
[2021-04-11 22:00] VITALS: BP 123/57
[2021-04-12] MEDS: PERCOCET 5MG/325MG TAB PO PRN (02:08)
[2021-04-12 06:00] VITALS: BP 124/60
[2021-04-12 06:51] LABS: HEMOGLOBIN 13.3 g/dl (13.5-17.5); MEAN CORPUSCULAR HEMOGLOBIN 31.1 pg (27.0-33.0); MEAN CORPUSCULAR HGB CONC 30.9 g/dl (32.0-36.5); MEAN CORPUSCULAR VOLUME 100.5 fl (80.0-96.0); PLATELET COUNT, AUTOMATED 193 10^3/uL (150-450); RED BLOOD COUNT 4.28 10^6/uL (4.30-6.10)
[2021-04-12 07:17] LABS: BILIRUBIN,TOTAL 0.3 MG/DL (0.2-1.0); C REACTIVE PROTEIN QUANTITATIV 5.53 MG/DL (0.00-0.30); CALCIUM LEVEL 8.9 MG/DL (8.8-10.2); CREATININE FOR GFR 1.37 MG/DL (0.70-1.30); GLOMERULAR FILTRATION RATE 55.5 (>49); POTASSIUM SERUM 4.5 MEQ/L (3.5-5.1); TOTAL PROTEIN 7.3 GM/DL (6.4-8.2)
[2021-04-12] MEDS: COMBIVENT RESPIMAT 100-20MCG INHALER 4GM INH SCH ×4 (07:38→20:00)
[2021-04-12] MEDS: ASPIRIN 81 MG CHEW TABLET PO SCH (08:05)
[2021-04-12] MEDS: PANTOPRAZOLE 40MG TAB (PROTONIX) PO SCH (08:05)
[2021-04-12] MEDS: PARoxetine 20MG TABLET PO SCH (08:06)
[2021-04-12] MEDS: ROSUVASTATIN 10 MG TAB (CRESTOR) PO SCH (08:06)
[2021-04-12] MEDS: GABAPENTIN 300 MG CAP PO SCH ×3 (08:06→21:46)
[2021-04-12] MEDS: FLUCONAZOLE 100 MG TAB PO SCH (08:06)
[2021-04-12] MEDS: METAXALONE 800 MG TABLET PO SCH ×3 (08:06→21:46)
[2021-04-12] MEDS: FERROUS SULFATE 325MG TAB PO SCH (08:06)
[2021-04-12] MEDS: CARVedilol 6.25 MG TAB PO SCH ×2 (08:07→21:49)
[2021-04-12] MEDS: HumaLOG INSULIN (NovoLOG) PER UNIT SC SCH ×5 (08:08→21:40)
[2021-04-12] MEDS: ENOXAPARIN 30MG/0.3ML SYRINGE (J1650 PER 10MG) SC SCH ×2 (08:08→08:18)
--- NOTE | 2021-04-12 10:59 | IPNPDOC ---
Subjective Date Seen The patient was seen on 04/12/21. Subjective Chief Complaint/HPI Mr. Dolan is feeling pretty good today. He like to talk about when he can go home. Nursing have no concerns for him. They reports the erythema has almost resolved. General: Reports: Normal Appetite Constitutional: Denies: Chills, Fever Pulmonary: Denies: Cough Cardiovascular: Denies: Chest Pain, Palpitations Genitourinary: Denies: Dysuria Psych: Reports: Mood Normal Objective Physical Examination General Exam: Positive: No Acute Distress Eye Exam: Positive: Conjunctiva & lids normal; Negative: Sclera icteric ENT Exam: Positive: Mucous membr. moist/pink Neck Exam: Negative: Lymphadenopathy Chest Exam: Positive: Clear to auscultation, Normal air movement Heart Exam: Positive: Rate Normal, Normal S1, Normal S2 Abdomen Exam: Positive: Normal bowel sounds, Soft; Negative: Tenderness Extremity Exam: Positive: Edema (Substantially decreased from the last couple days), Tenderness (There is a small area of tenderness and erythema on the right anterior lower extremity, but is much improved from yesterday) Psych Exam: Positive: Mood NL, Oriented x 3 Assessment /Plan Problems (1) Cellulitis of right leg Status: Acute Response to Treatment: Improving Problem Specific Plan: Monitor Clinically, Repeat Labs Problem Text: The erythema and tenderness is almost resolved. I am going to stop the ceftriaxone and switch him to oral cefdinir. I anticipate we can discharge him tomorrow. (2) Type 2 diabetes mellitus Status: Chronic Problem Specific Plan: Repeat Tests Problem Text: I am going to restart his outpatient oral regimen. We will continue insulin sliding scale for now as well. Monitor. Plan/VTE VTE Prophylaxis Ordered?: Yes (Lovenox) VS, I&O, 24H, Fishbone Vital Signs/I&O Vital Signs Date Time Temp Pulse Resp B/P (MAP) Pulse Ox O2 Delivery O2 Flow Rate FiO2 04/12/21 08:07 62 107/65 04/12/21 06:00 97.5 17 97 04/12/21 02:38 Room Air I&O- Last 24 Hours up to 6 AM 04/12/21 06:00 Intake Total 1370 ml Output Total 1350 ml Balance 20 ml Laboratory Data 24H LABS Laboratory Tests 2 04/11/21 16:18: Bedside Glucose (Misc Panel) 166H 04/11/21 20:47: Bedside Glucose (Misc Panel) 170H 04/12/21 06:12: Nucleated Red Blood Cells % (auto) 0.0, Anion Gap 0L, Glomerular Filtration Rate 55.5, Calcium Level 8.9, Total Bilirubin 0.3, Aspartate Amino Transf (AST/SGOT) 76H, Alanine Aminotransferase (ALT/SGPT) 90H, Alkaline Phosphatase 272H, C- Reactive Protein, Quantitative 5.53H, Total Protein 7.3, Albumin 3.0L, Albumin/Globulin Ratio 0.7 CBC/BMP Laboratory Tests 04/12/21 06:12 Microbiology Microbiology 04/10/21 Blood Culture - Preliminary, Resulted No Growth after 48 hours. All Specime... 04/09/21 Blood Culture - Preliminary, Resulted No Growth after 48 hours. All Specime... Amaury Akins MD Apr 12, 2021 10:59
[2021-04-12] MEDS: cefTRIAXone SOD 1 GM in D5W MINI-BAG PLUS 50 ML IV SCH (12:08)
[2021-04-12 14:00] VITALS: BP 115/66
[2021-04-12] MEDS: metFORMIN (GLUCOPHAGE) 500MG TAB PO SCH (17:50)
[2021-04-12] MEDS: LOSARTAN 25 MG TAB PO SCH (21:49)
[2021-04-12 22:00] VITALS: BP 118/61
[2021-04-13 06:00] VITALS: BP 117/63
[2021-04-13 06:28] LABS: HEMOGLOBIN 14.6 g/dl (13.5-17.5); MEAN CORPUSCULAR HEMOGLOBIN 31.1 pg (27.0-33.0); MEAN CORPUSCULAR HGB CONC 31.7 g/dl (32.0-36.5); MEAN CORPUSCULAR VOLUME 98.1 fl (80.0-96.0); PLATELET COUNT, AUTOMATED 218 10^3/uL (150-450); RED BLOOD COUNT 4.69 10^6/uL (4.30-6.10); WHITE BLOOD COUNT 8.2 10^3/uL (4.0-10.0)
[2021-04-13 06:53] LABS: C REACTIVE PROTEIN QUANTITATIV 2.87 MG/DL (0.00-0.30); CREATININE FOR GFR 1.35 MG/DL (0.70-1.30); GLOMERULAR FILTRATION RATE 56.5 (>49); POTASSIUM SERUM 4.3 MEQ/L (3.5-5.1)
[2021-04-13] MEDS: COMBIVENT RESPIMAT 100-20MCG INHALER 4GM INH SCH ×2 (07:56→11:52)
[2021-04-13] MEDS ORDERED: CEFDINIR 300 MG CAP (OMNICEF) PO SCH (09:00)
[2021-04-13] MEDS: HumaLOG INSULIN (NovoLOG) PER UNIT SC SCH ×2 (09:00→12:00)
[2021-04-13] MEDS: ENOXAPARIN 30MG/0.3ML SYRINGE (J1650 PER 10MG) SC SCH (09:00)
[2021-04-13 10:38] VITALS: BP 126/68
[2021-04-13 10:45] VITALS: BP 126/68
[2021-04-13] MEDS: CARVedilol 6.25 MG TAB PO SCH (10:45)
[2021-04-13] MEDS: GABAPENTIN 300 MG CAP PO SCH (10:45)
[2021-04-13] MEDS: METAXALONE 800 MG TABLET PO SCH (10:46)
[2021-04-13] MEDS: ROSUVASTATIN 10 MG TAB (CRESTOR) PO SCH (10:46)
[2021-04-13] MEDS: ASPIRIN 81 MG CHEW TABLET PO SCH (10:46)
[2021-04-13] MEDS: PANTOPRAZOLE 40MG TAB (PROTONIX) PO SCH (10:46)
[2021-04-13] MEDS: FERROUS SULFATE 325MG TAB PO SCH (10:47)
[2021-04-13] MEDS: FLUCONAZOLE 100 MG TAB PO SCH (10:47)
[2021-04-13] MEDS: PARoxetine 20MG TABLET PO SCH (10:48)
[2021-04-13] MEDS: metFORMIN (GLUCOPHAGE) 500MG TAB PO SCH (10:52)
[2021-04-13] MEDS ORDERED: CEFD300CAP PO (11:55)
[2021-04-13] MEDS ORDERED: METF500T13 PO (11:55)
--- NOTE | 2021-04-13 11:57 | DS.PDOC ---
Discharge Summary General Date of Admission Apr 10, 2021 at 04:24 Date of Discharge 04/13/21 Primary Care Physician: Theodore Christy M.D. Attending Physician: Amaury Akins MD Discharge Summary ADMITTING DIAGNOSES: 1. Right lower extremity cellulitis. 2. Type 2 diabetes. 3. Coronary artery disease. 4. Hypertension. 5. Chronic back pain. 6. Hyperlipidemia. 7. GERD. 8. COPD. 9. Anxiety/depression. 10. Chronic kidney disease. DISCHARGE DIAGNOSES: 1. Right lower extremity cellulitis, resolving. 2. Type 2 diabetes. 3. Coronary artery disease. 4. Hypertension. 5. Chronic back pain. 6. Hyperlipidemia. 7. GERD. 8. COPD. 9. Anxiety/depression. 10. Chronic kidney disease. PROCEDURES PERFORMED DURING STAY: None. ADMISSION HISTORY: Mr. Dolan was seen in the emergency department because of right lower extremity redness and pain x1 day. He was sent in by his primary care provider because of the rapid spread of the redness. Please see the admission history and physical for the remaining details. HOSPITAL COURSE: Mr. Dolan was admitted with a right lower extremity cellulitis. He was started on vancomycin and ceftriaxone on admission. As his MRSA screen was negative we drop the vancomycin. It still took the ceftriaxone roughly 48 hours to bring the infection under reasonable control. After this happened he was switched to oral cefdinir and we confirmed that the infection was still getting better even on oral medications. Then he was discharged to complete his course of therapy with oral medications at home. DISCHARGE CONDITION: Stable. FOLLOW-UP: Prior to discharge an appointment was scheduled with Dr. Christy on April 23 at 11:45 AM. He was also instructed to follow-up with Dr. Silva for wound care as was scheduled prior to admission. ACTIVITY: As tolerated. DIET: Consistent carbohydrate. DISCHARGE MEDICATIONS: Please see below. ALLERGIES: Please see below. LABORATORY DATA: Please see below. IMAGING: CT of the right tib-fib, right lower extremity venous Doppler ultrasound. DISCHARGE INSTRUCTIONS: 1. Complete your course of antibiotics. 2. Follow-up with Dr. Silva as scheduled prior to admission. TIME SPENT ON DISCHARGE: Greater than 20 minutes. Vital Signs/I&Os Vital Signs Date Time Temp Pulse Resp B/P (MAP) Pulse Ox O2 Delivery O2 Flow Rate FiO2 04/13/21 10:45 60 126/68 04/13/21 06:00 97.3 20 96 Room Air I&O- Last 24 Hours up to 6 AM 04/13/21 06:00 Intake Total 1480 ml Output Total 500 ml Balance 980 ml Laboratory Data Labs 24H Laboratory Tests 2 04/12/21 17:19: Bedside Glucose (Misc Panel) 147H 04/12/21 21:38: Bedside Glucose (Misc Panel) 174H 04/13/21 05:47: Nucleated Red Blood Cells % (auto) 0.0, Anion Gap 5L, Glomerular Filtration Rate 56.5, Calcium Level 9.0, C-Reactive Protein, Quantitative 2.87H 04/13/21 11:27: Bedside Glucose (Misc Panel) 145H CBC/BMP Laboratory Tests 04/13/21 05:47 FSBS Laboratory Tests Test 04/12/21 17:19 04/12/21 21:38 04/13/21 11:27 Range/Units Bedside Glucose (Misc Panel) 147 174 145 80-115 MG/DL Microbiology Microbiology 04/10/21 Blood Culture - Preliminary, Resulted No Growth after 72 hours. All specime... 04/09/21 Blood Culture - Preliminary, Resulted No Growth after 72 hours. All specime... Discharge Medications Scheduled Amlodipine Besylate (Amlodipine Besylate) 2.5 Mg Tablet, 2.5 MG PO QHS, (Reported) Aspirin (Aspirin) 81 Mg Tab.chew, 81 MG PO DAILY, (Reported) Carvedilol (Carvedilol) 6.25 Mg Tablet, 6.25 MG PO BID, (Reported) Cefdinir (Cefdinir) 300 Mg Capsule, 300 MG PO BID Ferrous Sulfate (Ferrous Sulfate) 325 Mg Tab, 325 MG PO DAILY, (Reported) Fluconazole (Fluconazole) 200 Mg Tab, 400 MG PO DAILY, (Reported) Gabapentin (Gabapentin) 300 Mg Capsule, 600 MG PO TID, (Reported) Ipratropium/Albuterol Sulfate (Combivent Respimat 20-100 Mcg) 4 Gm Mist.inhal, 1 PUFF INH QID, (Reported) Losartan Potassium (Losartan Potassium) 25 Mg Tablet, 25 MG PO QHS, (Reported) Metaxalone (Metaxalone) 800 Mg Tablet, 800 MG PO TID, (Reported) Metformin HCl (Metformin HCl) 500 Mg Tablet, 500 MG PO BID@08,18 Mineral Oil/Petrolatum,White (Therapeutic Moisturizing Cream) 454 Gm Cream..g., 1 APPLIC TOP DAILY, (Reported) LOWER LEGS Multivitamin/Iron/Folic Acid (Certavite-Antioxidant Tablet) 1 Tab Tab, 1 TAB PO DAILY, (Reported) Pantoprazole Sodium (Pantoprazole Sodium) 40 Mg Tab, 40 MG PO DAILY, (Reported) Paroxetine HCl (Paroxetine HCl) 40 Mg Tab, 40 MG PO DAILY, (Reported) Rosuvastatin Calcium (Crestor) 10 Mg Tab, 10 MG PO DAILY, (Reported) Scheduled PRN Acetaminophen (Acetaminophen) 325 Mg Tablet, 650 MG PO Q4H PRN for PAIN LEVEL 1- 5, (Reported) Oxycodone HCl (Oxycodone HCl) 10 Mg Tab, 10 MG PO Q12H PRN for PAIN LEVEL 5-10, (Reported) Allergies Coded Allergies: pregabalin (Verified Allergy, Intermediate, SOB, 02/18/19) bupropion (Verified Allergy, Mild, rash, 02/18/19) fluoxetine (Verified Allergy, Mild, rash, 02/18/19) sertraline (Verified Allergy, Unknown, 02/18/19) mirtazapine (Verified Adverse Reaction, Mild, nightmares, 02/18/19) oxymorphone (Verified Adverse Reaction, Mild, incontinence, 02/18/19) Amaury Akins MD Apr 13, 2021 11:57
== END 2021-04-13 14:15 | disposition home or self-care (01) | DRG 383 ==
LOC: M ED 19:19 → EEVIPCON 04-10 04:24 → M ED INP 04-10 04:24 → ENRESERV 04-10 13:44 → M MSPAV 04-10 16:15
PROVIDERS: ADMIT General Practice; ATTEND Family Medicine
DX: L03.115 Cellulitis of right lower limb (principal); Z99.3 Dependence on wheelchair; I25.10 Atherosclerotic heart disease of native coronary artery without angina pectoris; Z95.810 Presence of automatic (implantable) cardiac defibrillator; E78.5 Hyperlipidemia, unspecified; I12.9 Hypertensive chronic kidney disease with stage 1 through stage 4 chronic kidney disease, or unspecified chronic kidney disease; G47.33 Obstructive sleep apnea (adult) (pediatric); E11.628 Type 2 diabetes mellitus with other skin complications; J44.9 Chronic obstructive pulmonary disease, unspecified; N18.9 Chronic kidney disease, unspecified; F17.210 Nicotine dependence, cigarettes, uncomplicated; M54.9 Dorsalgia, unspecified; K21.9 Gastro-esophageal reflux disease without esophagitis; F41.9 Anxiety disorder, unspecified; F32.9 Major depressive disorder, single episode, unspecified; Z20.822 Contact with and (suspected) exposure to COVID-19; Z79.82 Long term (current) use of aspirin; Z79.84 Long term (current) use of oral hypoglycemic drugs; Z79.899 Other long term (current) drug therapy; Z88.5 Allergy status to narcotic agent; Z88.8 Allergy status to other drugs, medicaments and biological substances

== ENCOUNTER → 2021-05-09 | Outpatient (CLI) | payer OTHER ==
[~2021-05-09] MED LIST changes: +AMLO2.5T3 PO; +CARV6.25 PO; +CEFD300CAP PO; +COMBAER6 INH; +META1TAB22 PO; +METF500T13 PO; +[UNRECOGNIZED DRUG - CODE] TOP
[2021-05-09 12:56] LABS: BASO # 0.1 10^3/uL (0.0-0.2); BASO % 0.7 % (0.0-1.0); EOS # 0.3 10^3/uL (0.0-0.5); EOS % 2.6 % (0.0-3.0); HEMATOCRIT 45.3 % (42.0-52.0); HEMOGLOBIN 14.5 g/dl (13.5-17.5); LYMPH # 1.9 10^3/uL (1.5-5.0); LYMPH % 17.7 % (24.0-44.0); MEAN CORPUSCULAR HEMOGLOBIN 31.5 pg (27.0-33.0); MEAN CORPUSCULAR VOLUME 98.5 fl (80.0-96.0); MONO # 0.9 10^3/uL (0.0-0.8); MONO % 8.6 % (2.0-8.0); NEUTROPHILS # 7.4 10^3/uL (1.5-8.5); NEUTROPHILS % 69.7 % (36.0-66.0); PLATELET COUNT, AUTOMATED 220 10^3/uL (150-450); WHITE BLOOD COUNT 10.6 10^3/uL (4.0-10.0)
[2021-05-09 13:38] LABS: ALBUMIN 3.3 GM/DL (3.2-5.2); BILIRUBIN,TOTAL 0.3 MG/DL (0.2-1.0); CALCIUM LEVEL 8.9 MG/DL (8.8-10.2); CREATININE FOR GFR 1.34 MG/DL (0.70-1.30); POTASSIUM SERUM 4.8 MEQ/L (3.5-5.1); TOTAL PROTEIN 7.2 GM/DL (6.4-8.2)
[2021-05-09 13:47] LABS: HEMOGLOBIN A1c 8.1 %
== END ==
LOC: M PLALAB 12:02
PROVIDERS: ATTEND Family Medicine
DX: E11.8 Type 2 diabetes mellitus with unspecified complications (principal)

== ENCOUNTER → 2021-06-22 | Outpatient (CLI) | payer OTHER | LOC: M PAIN 10:45 | PROVIDERS: ATTEND Anesthesiology | DX: M96.1 Postlaminectomy syndrome, not elsewhere classified (principal); I25.10 Atherosclerotic heart disease of native coronary artery without angina pectoris; E78.5 Hyperlipidemia, unspecified; E11.51 Type 2 diabetes mellitus with diabetic peripheral angiopathy without gangrene; J44.9 Chronic obstructive pulmonary disease, unspecified; G47.33 Obstructive sleep apnea (adult) (pediatric); K21.9 Gastro-esophageal reflux disease without esophagitis; F33.9 Major depressive disorder, recurrent, unspecified; F41.1 Generalized anxiety disorder; E55.9 Vitamin D deficiency, unspecified; F17.210 Nicotine dependence, cigarettes, uncomplicated; Z79.891 Long term (current) use of opiate analgesic; Z79.899 Other long term (current) drug therapy; Z88.8 Allergy status to other drugs, medicaments and biological substances ==

== ENCOUNTER → 2021-07-04 | Outpatient (REF) | payer MEDICARE, OTHER ==
[~2021-07-04] MED LIST changes: -CERTTAB3 PO; +CERTTAB5 PO
[2021-07-04 18:13] LABS: APPEARANCE, URINE CLOUDY (CLEAR); BACTERIA, URINE AUTO 1+ (NEGATIVE); BILIRUBIN, URINE AUTO NEGATIVE (NEGATIVE); BLOOD, URINE BLOOD NEGATIVE (NEGATIVE); COLOR, URINE AMBER (YELLOW); GLUCOSE, URINE (UA) AUTO 1+ mg/dL (NEGATIVE); KETONE, URINE AUTO TRACE mg/dL (NEGATIVE); LEUKOCYTE ESTERASE, URINE AUTO 3+ (NEGATIVE); MUCUS, URINE SMALL (NEGATIVE); NITRITE, URINE AUTO NEGATIVE (NEGATIVE); PROTEIN, URINE AUTO 2+ mg/dL (NEGATIVE); RBC, URINE AUTO 6 /HPF (0-3); SPECIFIC GRAVITY URINE AUTO 1.027 (1.002-1.035); SQUAMOUS EPITHELIAL CELL UR AU 0 /HPF (0-6); WBC, URINE AUTO TNTC /HPF (0-3)
== END ==
LOC: M SFHCPLAZ 16:56
PROVIDERS: ATTEND Physician Assistant Medical
DX: N30.00 Acute cystitis without hematuria (principal); Z23 Encounter for immunization
CPT/HCPCS: 81001; 81002; 87088; 87186; 90682; G0008

== ENCOUNTER 2021-08-17 00:42 | Emergency (ER) | payer OTHER, MEDICARE ==
[~2021-08-17] VITALS: Ht 175.3 cm; Wt 84.1 kg
--- OUTSIDE RECORDS SUMMARY | 2021-08-17 00:49 | CCD ---
Author Author [facility] Organization [facility] Address Unknown Phone Unavailable Care Team Providers Care Chemical Mixer Name Role Phone Mackenzie Silva Unavailable PROBLEMS Type Condition ICD9-CM Code KOL52-NR Code Onset Dates Condition S tatus W/U Status Risk SNOMED Code Notes Problem Anticoagulant long-term use Z79.01 Active confirmed 188502210 Problem Mixed hyperlipidemia E78.2 Active confirmed 715377626 Problem Major depressive disorder, single episode, unspecified F32.9 Active confirmed 32907750 Problem History of MD (myocardial infarction) I25.2 Ac tive confirmed 513304701 Problem Vitamin D deficiency, unspecified E55.9 Active con firmed 40156872 Problem Non-pressure chronic ulcer o f other part of left foot with unspecified severity L97.529 Active confirmed 181697422 Problem Stage II pressure ulcer of sacral region L89.152 Active confirmed 001853463 Problem 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 Active confirmed 608244373 Problem Wound of right lower extremity S81.801A Active confirmed 008830165 Problem Pressure ulcer of right foot, stage 2 L89.892 Ac tive confirmed 866378025 Problem Stage IV pressure ulcer of sacral region L89.154 Active confirmed 236830256 Problem Stage II pressure ulcer of right hip L89.212 Act qamar confirmed 315732276 Problem Open wound of right foot, initial encounter S91.30 1A Active confirmed 138492782 Problem Disseminated candidiasis B37.7 Active confirmed 17138810 Problem 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 Active confir med 37699536 Problem Neurogenic incontinence N31.9 Active confirmed 276589820 Problem Iron deficiency anemia, unspecified iron deficiency an emia type D50.9 Active confirmed 78406275 Problem Recurrent UTI N39.0 Active confirmed 476875 001 Problem Nicotine use disorder F17.200 Active confirmed 32939258 Problem Neuropathic pain M79.2 Active confirmed 247 655475 Problem 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 Active confirmed 512224899 Problem Obesity (BMI 30-39.9) E66.9 Active confirmed 532703785 Problem Lumbar spondylosis M47.816 Active confirmed 641344359 Problem Prostate cancer screening Z12.5 Active confirmed 489844331 Problem Chronic pain syndrome G89.4 Active confirmed 236073148 Problem Postlaminectomy syndrome of lumbosacral region M96 .1 Active confirmed 679933238 Problem Lumbar spondylolysis M43.06 Active confirmed 890050733 Problem Ischemic cardiomyopathy I25.5 Active confirmed 276281404 Problem Hyperalgesia R20.8 Active confirmed 9917154 8 Problem Contracture of lower leg joint M24.569 Active confi rmed 6039884 Problem CKD (chronic kidney disease) stage 3, GFR 30-59 ml/min N18.3 Active confirmed 020556450 Problem Ataxia R27.0 Active confirmed 50804331 Problem Gout M10.9 Active confirmed 00410385 Problem NAFLD (nonalcoholic fatty liver disease) K76.0 Active confirmed 692757711 Problem Diabetes mellitus type 2 with complications E11.8 Active confirmed 144485792 Problem Lumbar post-laminectomy syndrome M96.1 Active conf irmed 053108945 Problem Hypertension, essential I10 Active confirmed 39866323 Problem Acquired phimosis N47.1 Active confirmed 26 5773748 Problem Sacral decubitus ulcer, stage IV L89.154 Active confirmed 065312018 Problem Phimosis N47.1 Active confirmed 730203370 Problem Peripheral vascular disease I73.9 Active confirmed 504290612 Problem Vitamin D deficiency E55.9 Active confirmed 24287219 Problem ED (erectile dysfunction) N52.9 Active confirmed 578857938 Problem ARON (obstructive sleep apnea) G47.33 Active confirm ed 74805898 Problem Intervertebral disc disorder with radiculopathy of lumbar region M51.16 Active confirmed 673653728997111 Problem Gastroesophageal reflux disease without esophagitis K21.9 Active confirmed 759192359 Problem Osteoporotic compression fracture of spine with delayed healing M80.88XG Active confirmed 458299887 Problem Paronychia of great toe of right foot L03.031 Ac tive confirmed 814217952 Problem Community acquired pneumonia J18.9 Active confirme d 385904951 Problem Pressure ulcer of coccygeal region, stage 2 L89.15 2 Active confirmed Problem Stage II pressure ulcer of right buttock L89.312 Active confirmed 883797881 Problem Encounter for immunization Z23 Active confirmed 984019895 Problem Constipation, chronic K59.09 Active confirmed 867701814 Problem Stage III pressure ulcer of sacral region L89.153 Active confirmed 247590246 Problem Venous insufficiency of both lower extremities I87 .2 Active confirmed 180734034 Problem Apraxia R48.2 Active confirmed 56124284 Problem Macrocytosis D75.89 Active confirmed 2442165 00 Problem Stage 2 moderate COPD by GOLD classification J44.9 Active confirmed 898624183 ALLERGIES Allergen (clinical drug ingredient) Drug/Non Drug Allergy do cumented on EMR Reaction Allergy Type Onset Date Status Wellbutrin agitation Drug Allergy Active fluoxetine PROzac(NDC Code:[address]-88) depression Drug Allergy Active sertraline Zoloft(NDC Code:[address]-55) Diarrhea Drug Allergy Active mirtazapine Remeron(NDC Code:[address]-40) nightmares Drug Allergy Active ENCOUNTERS from 1955 to 2021-07-31 Encounter Location Date Provider Diagnosis [facility] Wound Care [address] [phone] [place] [address] 15 Jul, 2021 Mackenzie Silva Stage IV pressure ulcer of s acral region L89.154 IMMUNIZATIONS Vaccine Route Administration Date Status Influenza Pharmacy Given IM Intramuscular Jun 24, 2018 Admini stered Influenza 18 yrs & older Flublok IM Intramuscular Jul 04, 2021 Administered Influenza 18 yrs & older Flublok IM Intramuscular Jul 11, 2020 Administered Influenza 18 yrs & older Flublok Unknown Jul 09, 2019 Others Influenza 6mo & up Fluzone Unknown Aug 06, 2019 Refus ed Influenza 6mo & up Fluzone IM Intramuscular Jul 21, 2017 Admi nistered Influenza Pharmacy Given Unknown Jul 10, 2018 Refused Influenza 6mo & up Fluzone IM Intramuscular Aug 25, 2012 Admi nistered COVID-19 dose #1 given elsewhere Unspecified IM Intramuscular Ma rc2020 Administered Influenza 6mo & up Fluzone IM Intramuscular Aug 27, 2011 Admi nistered Influenza 6mo & up Fluzone IM Intramuscular Jun 13, 2010 Admi nistered SOCIAL HISTORY Tobacco Use: Social History Observation Description Date Details (start date - stop date) Current Smoker Sex Assigned At : Social History Observation Description Sex Assigned At Unknown Education: Question Answer Notes Level of Education: Not Finished College Audit Question Answer Notes Total Score: 0 Interpretation: Alcohol Education Language: Question Answer Notes Languages spoken: Serbian Jain: Question Answer Notes Jain [facility] Question Answer Notes Total Score: 0 Interpretation: No problems reported BMI Care Goal Follow-Up Question Answer Notes Above Normal BMI Follow-Up Giving encouragement to exercise Tobacco Use: Question Answer Notes Are you a: current smoker Smoking Cessation Information Given 03/13/2021 Patient counseled on the dangers of tobacco use and urged to quit: 03/13/2021 How many cigarettes a day do you smoke? 6-10 Are you interested in quitting? Not ready to quit Counseled the patient on smoking effects, education provided 03/13/2021 REASON FOR REFERRAL No Information VITAL SIGNS Weight 188 lbs Jul, Height 69 in Jul, BMI 27.76 kg/m2 Jul, Heart Rate 79 /min Jul, Respiratory Rate 20 /min Jul, Temperature 97.3 degrees Fahrenheit Jul, Oximetry 95 Jul, Blood pressure systolic 121 mm Hg Jul, Blood pressure diastolic 66 mm Hg Jul, MEDICATIONS Medication SIG (Take, Route, Frequency, Duration) Notes Start Da te End Date Status CertaVite/Antioxidants - 1 tablet Orally Once a day for 30 Active Prevail Wet Wipes - as directed for dx=G82.21 (paraplegia) D aily for 90 day(s) Apr, Active May Use - as directed boot for right foot Daily-DX: M19.07 1 for 30 Days Dec, Active May Have - large non-skid socks for dx=G82.21 (para plegia) Daily for 90 day(s) Apr, Active Gait/Transfer Belt - as directed Apr, A ctive Pantoprazole Sodium 40 MG 1 tablet Orally every morning for 90 day(s ) Active Acetominophen-325 mg 325 mg 1 or 2 tabs orally every four ho urs prn for 30 Days Active PARoxetine HCl 40 MG 1 tablet in the morning Orally Once a day f or 90 day(s) Active May Use 1 brace for left lower extremi ty as directed DX:R27.0 daily contracture of lower joint for 30 days fax to [phone] Mar, Active Carvedilol 6.25 MG 1 tab Orally bid for 90 day(s) Active oxyCODONE HCl 10 MG 1 tablet as needed Orally ev jimi 12 hrs PRN SEVERE PAIN MDD: 2 for 30 days Jun, Active Hydrocerin - as directed Externally bid to lower legs from kn ees down for 30 Active Aspirin 81 MG 1 tablet Orally Once a day for 90 day(s) Active Gabapentin 600 MG 1 tablet Orally three times daily for 90 day(s) Active Losartan Potassium 25 mg 1 tablet Orally every morning for 90 day(s) Active Combivent Respimat 20-100 mcg/act 1 puff Inhalation fo ur times daily as needed for 30 Days Active Fluconazole 200 MG 2 tablets Orally Daily for 90 day(s) Active Voltaren 1 % 4 gm Transdermal every 4-hours as needed for 30 Days Sep, Active amLODIPine Besylate 2.5 MG 1 tablet Orally every moring for 90 day(s) Active Ferrous Sulfate 325 (65 Fe) MG 1 tablet Orally Once a day for 30 day( s) Active Blood Glucose Test - as directed intradermally bid DX: E11.9 for 25 Active MiraLax - 1 packet mixed with 8 ounces of fluid Or ally Once a day for 90 day(s) Active Rosuvastatin Calcium 10 MG 1 tablet Orally Once a day for 90 day(s) Active Skelaxin 800 MG 1 tablet Orally Three times a day for 90 day(s) Active Macrobid 100 MG 1 capsule with food Orally bid for 10 day(s) Jun, Active CertaVite/Antioxidants - 1 tablet Orally Once a day for 90 day(s) Active Reclast 5 MG/100ML as directed Intravenous YEARLY Active PROCEDURES from 1955 to 2021-07-31 Procedure Date Ordered Result Body Site Medication: 4% Lidocaine topical cream (Anecream) 5gm 2021-07-30 N/A RESULTS No Results REASON FOR VISIT Right great toe & sacral wounds. MEDICAL (GENERAL) HISTORY Type Description Date Medical History CAD, s/p AWMI post-op [place]go ctomy-05/2017 very small apical thrombus, LVEF 40%-akinesis of apex, mid ant, mid anteroseptal, LV diastolic dysfx by 05/2017 TTE-Antecol/07/2017 RST s ischemia but focal/global abnormality, LVEF 28%, high risk-Slezka/12/2017 cath-no significant CAD-Tommie/sp ICD 01/12/2018-Tommie/02/19/19 TTE c LVEF 50-55%/no french dysfx-Jak Medical History hyperlipidemia, 2B Medical History PAD Medical History T2DM NID Medical History COPD/Emphysema - FEV1 3.7 in 2007, likely from long-term heavy smoking Medical History ARON--intolerant of CPAP Medical History ED Medical History GERD Medical History chronic MDD/AMBROSIO Medical History Vitamin D deficiency/2 HPT Medical History h/o perforated iliac and aor ta s/p emergent abdominal aorto bi- iliac artery bypass graft--required 17 liters saline, 25 units PRBC, 336 units platelets, 1 liter FFP, 6 liter cell-saver Medical History ischemia lower extremities w ith compartment syndrome, requiring bilat 4 compatment fasciotomies Medical History septic shock 2 perforated vi scus s/p emergent left colectomy (c R colostomy), open cholecystectomy, liver packing, ABThera replacment Medical History cholecystitis, bile leak post cholecyste ctyomy Medical History left colectomy and rt partial colectomy with colostomy Medical History bradyarhythmia with cardiac arrest/IWMI Medical History 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 Medical History h/o recurrent gout, L podagra Medical History lumbar DJD- L3/4 mod CCS, L4 /5 mild c grade 1 lithesis and L L4 compression in NF, L5/S1 diffuse bulge c minimal TS compression by 04/2017 CT LS spine Medical History recurrent UTI, OAB, chronic pyuria Surgical History appendectomy Surgical History RIH Surgical History left elbow ulnar nerve transposition Surgical History lumbar spinal fusion 04/24 Surgical History colonoscopy--nl 11/17 Surgical History removal screws, rods lumbar spine, bone grafting 06/25 Surgical History exp laparotomy, left colectomy, right co lostomy 2013 Surgical History aborted L4-L5 discectomy com plicated by intraoperative iliac vein and aortic perforation 07/2014 Surgical History tracheostomy 07/2014 Surgical History cholecystectomy, secondary to bile leak 07/2014 Surgical History bilateral lower extremity fa sciotomies R/T compartment syndrome 07/29 Surgical History defibrilator placement (R) side 01/08/18 Surgical History New pacemaker wire 06/05/18 Surgical History circumcision 2 phimosis/recurrent UTI-[place] 10/01/2018 Hospitalization History complications following attempted LS spine surgery 07/18/14-05/17/15 Hospitalization History SBO, UTI, influenza-resolved c NGT Hospitalization History bowel obstruction december/2016 Hospitalization History aborted L4-5 diskectomy, com pliacted by intraoperative iliacvein and aortic perforation 07/29 Hospitalization History bilat lower ext fasciotomies (compar tment syndrome) 07/29 Hospitalization History exp laparotomy, left colectomy, righ t colostomy 07/29 Hospitalization History open cholecytectomy, seconadry bile leak 07/29 Hospitalization History tracheostomy 07/29 Hospitalization History removal infected aortobifemo ral graft, insertion of second ABF graft 08/28 Hospitalization History temporary pacemaker 08/28 Hospitalization History ERCP, sphicterotomy, bilary stent pl acement 09/29 Hospitalization History first of several sacral decub debrid ements 11/27 Hospitalization History EGD--biliary stent removed 11/27 Hospitalization History trach removal/closure 03/29 Hospitalization History [facility]-elevated INR 7.9 c bleeding at o stomy site 04/19-05/01 Hospitalization History Hospitalized for defibrilator placem ent 01/08/18-01/20/18 Hospitalization History New Pacemaker wire 06/04/18 Hospitalization History syncope 2 SB to 40s, carve decreased 25 BID to 6.25 BID 02/18-06/03 Hospitalization History 1D [employer] RLE cellulitis-WBC 9. 7,CRP 14 (3 at dc), -CT R tib/fib for abscess, -RLE DVT US, rxed c vanco/ceftr, dced on cefdinir 7D, -BCX2 7/27- Goals Section No Information Health Concerns No Information MEDICAL EQUIPMENT No Information MENTAL STATUS No Information FUNCTIONAL STATUS No Information ASSESSMENTS Encounter Date Diagnosis Assessment Notes Treatment Notes Treatm ent Clinical Notes Jul, Stage IV pressure ulcer of sacral region (ICD-10 - L89.154) PLAN OF TREATMENT Next Appt Details 4 Weeks Reason: Provider Name:Theodore Christy, 2021-08-24 1 1:45:00 AM, [address], , [place], [address], Provider Name:Mackenzie Silva, 10:15:00 AM, [address], , [place], [address], Insurance Providers Payer Name Payer Address Payer Phone Insured Name Patient Relati onship to Insured Coverage Start Date Coverage End Date MEDICARE Part A and B [address] [facility] [address] [phone] MACKENZIE DOLAN [facility] [address] [id number] [facility] [id number] MACKENZIE DOLAN [id number]
--- OUTSIDE RECORDS SUMMARY | 2021-08-17 00:49 | CCD ---
Author Author [facility] Organization [facility] Address Unknown Phone Unavailable Care Team Providers Care Software Quality Engineer Name Role Phone Theodore Christy Unavailable PROBLEMS Type Condition ICD9-CM Code HRG18-VK Code Onset Dates Condition S tatus W/U Status Risk SNOMED Code Notes Problem Anticoagulant long-term use Z79.01 Active confirmed 561235422 Problem Mixed hyperlipidemia E78.2 Active confirmed 583245262 Problem Major depressive disorder, single episode, unspecified F32.9 Active confirmed 30307713 Problem History of [place] (myocardial infarction) I25.2 Ac tive confirmed 665056066 Problem Vitamin D deficiency, unspecified E55.9 Active con firmed 62190788 Problem Non-pressure chronic ulcer o f other part of left foot with unspecified severity L97.529 Active confirmed 350884808 Problem Stage II pressure ulcer of sacral region L89.152 Active confirmed 163953903 Problem 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 Active confirmed 503526483 Problem Wound of right lower extremity S81.801A Active confirmed 127386027 Problem Pressure ulcer of right foot, stage 2 L89.892 Ac tive confirmed 826688399 Problem Stage IV pressure ulcer of sacral region L89.154 Active confirmed 871057505 Problem Stage II pressure ulcer of right hip L89.212 Act qamar confirmed 083955779 Problem Open wound of right foot, initial encounter S91.30 1A Active confirmed 046121168 Problem Disseminated candidiasis B37.7 Active confirmed 72149810 Problem 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 Active confir med 60843086 Problem Neurogenic incontinence N31.9 Active confirmed 602455906 Problem Iron deficiency anemia, unspecified iron deficiency an emia type D50.9 Active confirmed 17773039 Problem Recurrent UTI N39.0 Active confirmed 555169 001 Problem Nicotine use disorder F17.200 Active confirmed 50018926 Problem Neuropathic pain M79.2 Active confirmed 247 292497 Problem 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 Active confirmed 299011450 Problem Obesity (BMI 30-39.9) E66.9 Active confirmed 129464618 Problem Lumbar spondylosis M47.816 Active confirmed 131313897 Problem Prostate cancer screening Z12.5 Active confirmed 595647474 Problem Chronic pain syndrome G89.4 Active confirmed 058100060 Problem Postlaminectomy syndrome of lumbosacral region M96 .1 Active confirmed 590495206 Problem Lumbar spondylolysis M43.06 Active confirmed 718236102 Problem Ischemic cardiomyopathy I25.5 Active confirmed 718352457 Problem Hyperalgesia R20.8 Active confirmed 5979963 8 Problem Contracture of lower leg joint M24.569 Active confi rmed 0899421 Problem CKD (chronic kidney disease) stage 3, GFR 30-59 ml/min N18.3 Active confirmed 195445779 Problem Ataxia R27.0 Active confirmed 87753295 Problem Gout M10.9 Active confirmed 10403445 Problem NAFLD (nonalcoholic fatty liver disease) K76.0 Active confirmed 792607361 Problem Diabetes mellitus type 2 with complications E11.8 Active confirmed 776223502 Problem Lumbar post-laminectomy syndrome M96.1 Active conf irmed 561776151 Problem Hypertension, essential I10 Active confirmed 41662288 Problem Acquired phimosis N47.1 Active confirmed 26 7038919 Problem Sacral decubitus ulcer, stage IV L89.154 Active confirmed 404916955 Problem Phimosis N47.1 Active confirmed 202176056 Problem Peripheral vascular disease I73.9 Active confirmed 043726141 Problem Vitamin D deficiency E55.9 Active confirmed 31573042 Problem ED (erectile dysfunction) N52.9 Active confirmed 695318305 Problem ARON (obstructive sleep apnea) G47.33 Active confirm ed 78578819 Problem Intervertebral disc disorder with radiculopathy of lumbar region M51.16 Active confirmed 407010444926260 Problem Gastroesophageal reflux disease without esophagitis K21.9 Active confirmed 955072577 Problem Osteoporotic compression fracture of spine with delayed healing M80.88XG Active confirmed 666195941 Problem Paronychia of great toe of right foot L03.031 Ac tive confirmed 682028572 Problem Community acquired pneumonia J18.9 Active confirme d 223838363 Problem Pressure ulcer of coccygeal region, stage 2 L89.15 2 Active confirmed Problem Stage II pressure ulcer of right buttock L89.312 Active confirmed 007408205 Problem Encounter for immunization Z23 Active confirmed 021003207 Problem Constipation, chronic K59.09 Active confirmed 090265674 Problem Stage III pressure ulcer of sacral region L89.153 Active confirmed 555101743 Problem Venous insufficiency of both lower extremities I87 .2 Active confirmed 310202621 Problem Apraxia R48.2 Active confirmed 71934846 Problem Macrocytosis D75.89 Active confirmed 0485129 00 Problem Stage 2 moderate COPD by GOLD classification J44.9 Active confirmed 661281287 ALLERGIES Allergen (clinical drug ingredient) Drug/Non Drug Allergy do cumented on EMR Reaction Allergy Type Onset Date Status Wellbutrin agitation Drug Allergy Active fluoxetine PROzac(ND Code:[address]-80) depression Drug Allergy Active sertraline Zoloft(NDC Code:[address]-06) Diarrhea Drug Allergy Active mirtazapine Remeron(NDC Code:[address]-13) nightmares Drug Allergy Active ENCOUNTERS from 1955 to 2021-08-07 Encounter Location Date Provider Diagnosis [address] [phone] [place] [address] Jul, Theodore Christy Mural thrombus of cardiac ap ex I51.3 IMMUNIZATIONS Vaccine Route Administration Date Status COVID-19 dose #1 given elsewhere Unspecified IM Intramuscular [facility] 2020 Administered Influenza Pharmacy Given IM Intramuscular Jun 24, [...] IM Intramuscular Aug 25, 2012 Admi nistered Influenza 18 yrs & older Flublok IM Intramuscular Jul 04, 2021 Administered Influenza 6mo & up Fluzone IM [...] Education Language: Question Answer Notes Languages spoken: French Taoist: Question Answer Notes Taoist 05 Spiritism Drug and Alcohol Question Answer Notes Total [...] REASON FOR REFERRAL No Information VITAL SIGNS No information MEDICATIONS Medication SIG (Take, Route, Frequency, Duration) Notes Start Da te End Date Status Acetominophen-325 mg 325 mg 1 or 2 tabs orally every four ho urs prn for 30 Days Active Prevail Wet Wipes - as directed for dx=G82.21 (paraplegia) D aily for 90 day(s) Apr, Active CertaVite/Antioxidants - 1 tablet Orally Once a day for 30 Active May Have - large non-skid socks for dx=G82.21 (para plegia) Daily for 90 day(s) Apr, Active Gait/Transfer Belt - as directed Apr, A ctive Pantoprazole Sodium 40 MG 1 tablet Orally every morning for 90 day(s ) Active Aspirin 81 MG 1 tablet Orally Once a day for 90 day(s) Active PARoxetine HCl 40 MG 1 tablet in the morning Orally Once a day f or 90 day(s) Active May Use 1 brace for left lower extremi ty as directed DX:R27.0 daily contracture of lower joint for 30 days fax to [phone] Mar, Active Carvedilol 6.25 MG 1 tab Orally bid for 90 day(s) Active Fluconazole 200 MG 2 tablets Orally Daily for 90 day(s) Active oxyCODONE HCl 10 MG 1 tablet as needed Orally ev jimi 12 hrs PRN SEVERE PAIN MDD: 2 for 30 days Jun, Active Ferrous Sulfate 325 (65 Fe) MG 1 tablet Orally Once a day for 30 day( s) Active Blood Glucose Test - as directed intradermally bid DX: E11.9 for 25 Active Losartan Potassium 25 mg 1 tablet Orally every morning for 90 day(s) Active MiraLax - 1 packet mixed with 8 ounces of fluid Or ally Once a day for 90 day(s) Active Gabapentin 600 MG 1 tablet Orally three times daily for 90 day(s) Active Voltaren 1 % 4 gm Transdermal every 4-hours as needed for 30 Days Sep, Active amLODIPine Besylate 2.5 MG 1 tablet Orally every moring for 90 day(s) Active Combivent Respimat 20-100 mcg/act 1 puff Inhalation fo ur times daily as needed for 30 Days Active May Use - as directed boot for right foot Daily-DX: M19.07 1 for 30 Days Dec, Active Hydrocerin - as directed Externally bid to lower legs from kn ees down for 30 Active Rosuvastatin Calcium 10 MG 1 tablet [...] MG/100ML as directed Intravenous YEARLY Active PROCEDURES No Information RESULTS No Results REASON FOR VISIT asa MEDICAL (GENERAL) HISTORY Type Description Date Medical History CAD, s/p AWMI post-op [place] ctomy-05/2017 very small apical thrombus, LVEF 40%-akinesis of apex, mid ant, mid anteroseptal, LV diastolic dysfx by 05/2017 TTE-Antec RST s ischemia but focal/global abnormality, LVEF 28%, high risk-[facility]orge Aka/12/2017 cath-no significant CAD-[place]/sp ICD 01/12/2018-[place]/02/19/19 TTE c LVEF 50-55%/no french dysfx-[facility] [...] to 6.25 BID 02/18-06/03 Hospitalization History 1D [employer]OUNTING [employer] RLE cellulitis-WBC 9. 7,CRP 14 (3 at dc), -CT R tib/fib for abscess, -RLE DVT US, rxed c vanco/ceftr, dced on cefdinir 7D, -BCX2 04/10- Goals Section No Information Health Concerns No Information MEDICAL EQUIPMENT No Information MENTAL STATUS No Information FUNCTIONAL STATUS No Information ASSESSMENTS Encounter Date Diagnosis Assessment Notes Treatment Notes Treatm ent Clinical Notes Jul, Mural thrombus of cardiac apex (ICD-10 - I51.3) PLAN OF TREATMENT Medication Medication Name Sig Start Date Stop Date Aspirin 81 MG 1 tablet Orally Once a day for 90 day(s) Next Appt Details Provider Name:Theodore Christy, 2021-08-24 1 1:45:00 AM, [address] [facility], , [place], [address], Provider Name:Mackenzie Silva, 10:15:00 AM, [address], , [place], [address], Insurance Providers Payer Name Payer Address Payer Phone Insured Name Patient Relati onship to Insured Coverage Start Date Coverage End Date [facility] [address] [address] [facility] [phone] MACKENZIE DOLAN [id number] MEDICARE Part A and B [address] [place] [id number] [phone] MACKENZIE DOLAN self
--- OUTSIDE RECORDS SUMMARY | 2021-08-17 00:49 | CCD ---
Author Author [facility] Organization [facility] Address Unknown Phone Unavailable Care Team Providers Care Legislative Correspondent Name Role Phone Mackenzie Silva Unavailable PROBLEMS Type Condition ICD9-CM Code LFN49-VG Code Onset Dates Condition S tatus W/U Status Risk SNOMED Code Notes Problem Anticoagulant long-term use Z79.01 Active confirmed 278614464 Problem Mixed hyperlipidemia E78.2 Active confirmed 491137159 Problem Major depressive disorder, single episode, unspecified F32.9 Active confirmed 37956746 Problem History of [place] (myocardial infarction) I25.2 Ac tive confirmed 500769643 Problem Vitamin D deficiency, unspecified E55.9 Active con firmed 69596180 Problem Non-pressure chronic ulcer o f other part of left foot with unspecified severity L97.529 Active confirmed 715696863 Problem Stage II pressure ulcer of sacral region L89.152 Active confirmed 048385945 Problem 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 Active confirmed 031254520 Problem Wound of right lower extremity S81.801A Active confirmed 148433936 Problem Pressure ulcer of right foot, stage 2 L89.892 Ac tive confirmed 223430140 Problem Stage IV pressure ulcer of sacral region L89.154 Active confirmed 389066627 Problem Stage II pressure ulcer of right hip L89.212 Act qamar confirmed 093060391 Problem Open wound of right foot, initial encounter S91.30 1A Active confirmed 523750873 Problem Disseminated candidiasis B37.7 Active confirmed 71881399 Problem 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 Active confir med 71987953 Problem Neurogenic incontinence N31.9 Active confirmed 336405859 Problem Iron deficiency anemia, unspecified iron deficiency an emia type D50.9 Active confirmed 76601194 Problem Recurrent UTI N39.0 Active confirmed 299039 001 Problem Nicotine use disorder F17.200 Active confirmed 39675165 Problem Neuropathic pain M79.2 Active confirmed 247 305528 Problem 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 Active confirmed 385068766 Problem Obesity (BMI 30-39.9) E66.9 Active confirmed 899382377 Problem Lumbar spondylosis M47.816 Active confirmed 368424963 Problem Prostate cancer screening Z12.5 Active confirmed 179303137 Problem Chronic pain syndrome G89.4 Active confirmed 448739402 Problem Postlaminectomy syndrome of lumbosacral region M96 .1 Active confirmed 882230775 Problem Lumbar spondylolysis M43.06 Active confirmed 616730742 Problem Ischemic cardiomyopathy I25.5 Active confirmed 349035936 Problem Hyperalgesia R20.8 Active confirmed 5779668 8 Problem Contracture of lower leg joint M24.569 Active confi rmed 4509684 Problem CKD (chronic kidney disease) stage 3, GFR 30-59 ml/min N18.3 Active confirmed 869415570 Problem Ataxia R27.0 Active confirmed 36314823 Problem Gout M10.9 Active confirmed 18258238 Problem NAFLD (nonalcoholic fatty liver disease) K76.0 Active confirmed 590413470 Problem Diabetes mellitus type 2 with complications E11.8 Active confirmed 351520689 Problem Lumbar post-laminectomy syndrome M96.1 Active conf irmed 167660095 Problem Hypertension, essential I10 Active confirmed 42397610 Problem Acquired phimosis N47.1 Active confirmed 26 1403028 Problem Sacral decubitus ulcer, stage IV L89.154 Active confirmed 054183879 Problem Phimosis N47.1 Active confirmed 255417994 Problem Peripheral vascular disease I73.9 Active confirmed 997756358 Problem Vitamin D deficiency E55.9 Active confirmed 28599588 Problem ED (erectile dysfunction) N52.9 Active confirmed 686143780 Problem ARON (obstructive sleep apnea) G47.33 Active confirm ed 13013764 Problem Intervertebral disc disorder with radiculopathy of lumbar region M51.16 Active confirmed 114257620895181 Problem Gastroesophageal reflux disease without esophagitis K21.9 Active confirmed 859364617 Problem Osteoporotic compression fracture of spine with delayed healing M80.88XG Active confirmed 344437490 Problem Paronychia of great toe of right foot L03.031 Ac tive confirmed 714575401 Problem Community acquired pneumonia J18.9 Active confirme d 049751636 Problem Pressure ulcer of coccygeal region, stage 2 L89.15 2 Active confirmed Problem Stage II pressure ulcer of right buttock L89.312 Active confirmed 123008608 Problem Encounter for immunization Z23 Active confirmed 341701434 Problem Constipation, chronic K59.09 Active confirmed 346520964 Problem Stage III pressure ulcer of sacral region L89.153 Active confirmed 548489565 Problem Venous insufficiency of both lower extremities I87 .2 Active confirmed 502613485 Problem Apraxia R48.2 Active confirmed 17616418 Problem Macrocytosis D75.89 Active confirmed 7786860 00 Problem Stage 2 moderate COPD by GOLD classification J44.9 Active confirmed 529097254 ALLERGIES Allergen (clinical drug ingredient) Drug/Non Drug Allergy do cumented on EMR Reaction Allergy Type Onset Date Status Wellbutrin agitation Drug Allergy Active fluoxetine PROzac(NDC Code:[address]-76) depression Drug Allergy Active sertraline Zoloft(NDC Code:[address]-42) Diarrhea Drug Allergy Active mirtazapine Remeron(NDC Code:[address]-02) nightmares Drug Allergy Active ENCOUNTERS from 1955 to 2021-07-28 Encounter Location Date Provider Diagnosis [facility] [address] [facility] [phone] [place] [address] Jul, Mackenzie Silva IMMUNIZATIONS Vaccine Route Administration Date Status Influenza [...] #1 given elsewhere Unspecified IM Intramuscular [facility] 2020 Administered Influenza 6mo & up Fluzone IM [...] Education Language: Question Answer Notes Languages spoken: Iraqi Episcopal: Question Answer Notes Episcopal 05 Orthodoxy Drug and Alcohol Question Answer [...] Notes Start Da te End Date Status Aspirin 81 MG 1 tablet Orally Once a day for 90 day(s) Active Blood Glucose Test - as directed intradermally bid DX: E11.9 for 25 Active PARoxetine HCl 40 MG 1 tablet in the morning Orally Once a day f or 90 day(s) Active May Use - as directed boot for right foot Daily-DX: M19.07 1 for 30 Days Dec, Active Skelaxin 800 MG 1 tablet Orally Three times a day for 90 day(s) Active May Use 1 brace for left lower extremi ty as directed DX:R27.0 daily contracture of lower joint for 30 days fax to [phone] Mar, Active Rosuvastatin Calcium 10 MG 1 tablet Orally Once a day for 90 day(s) Active Voltaren 1 % 4 gm Transdermal every 4-hours as needed for 30 Days Sep, Active Hydrocerin - as directed Externally bid to lower legs from kn ees down for 30 Active Gait/Transfer Belt - as directed Apr, A ctive amLODIPine Besylate 2.5 MG 1 tablet Orally every moring for 90 day(s) Active oxyCODONE HCl 10 MG 1 tablet as needed Orally ev jimi 12 hrs PRN SEVERE PAIN MDD: 2 for 30 days Jun, Active Macrobid 100 MG 1 capsule with food Orally bid for 10 day(s) Jun, Active Carvedilol 6.25 MG 1 tab Orally bid for 90 day(s) Active Acetominophen-325 mg 325 mg 1 or 2 tabs orally every four ho urs prn for 30 Days Active Gabapentin 600 MG 1 tablet Orally three times daily for 90 day(s) Active Losartan Potassium 25 mg 1 tablet Orally every morning for 90 day(s) Active Combivent Respimat 20-100 mcg/act 1 puff Inhalation fo ur times daily as needed for 30 Days Active CertaVite/Antioxidants - 1 tablet Orally Once a day for 30 Active CertaVite/Antioxidants - 1 tablet Orally Once a day for 90 day(s) Active Pantoprazole Sodium 40 MG 1 tablet Orally every morning for 90 day(s ) Active May Have - large non-skid socks for dx=G82.21 (para plegia) Daily for 90 day(s) Apr, Active Ferrous Sulfate 325 (65 Fe) MG 1 tablet Orally Once a day for 30 day( s) Active Fluconazole 200 MG 2 tablets Orally Daily for 90 day(s) Active MiraLax - 1 packet mixed with 8 ounces of fluid Or ally Once a day for 90 day(s) Active Prevail Wet Wipes - as directed for dx=G82.21 (paraplegia) D aily for 90 day(s) Apr, Active Reclast 5 MG/100ML as directed Intravenous YEARLY Active PROCEDURES No Information RESULTS No Results REASON FOR VISIT Appointment MEDICAL (GENERAL) HISTORY Type Description Date Medical History CAD, s/p AWMI post-op [place] ctomy-05/2017 very small apical thrombus, LVEF 40%-akinesis of apex, mid ant, mid anteroseptal, LV diastolic dysfx by 05/2017 TTE-Antec/07/2017 RST s ischemia but focal/global abnormality, LVEF 28%, high risk-Jorge Aka/12/2017 cath-no significant CAD-[facility]/sp ICD 01/12/2018-[place]/02/19/19 TTE c LVEF 50-55%/no french dysfx-[facility] [...] wire 06/05/18 Surgical History circumcision 2 phimosis/recurrent UTI- [place] 10/01/2018 Hospitalization History complications following attempted [...] to 6.25 BID 02/18-06/03 Hospitalization History 1D CAN RECONDITIONER RLE cellulitis-WBC 9. 7,CRP 14 (3 at dc), -CT R tib/fib for abscess, -RLE DVT US, rxed c vanco/ceftr, dced on cefdinir 7D, -BCX2 04/10- Goals Section No Information Health Concerns No Information MEDICAL EQUIPMENT No Information MENTAL STATUS No Information FUNCTIONAL STATUS No Information ASSESSMENTS No Information PLAN OF TREATMENT Next Appt Details Provider Name:Mackenzie Silva, 09:15:00 AM, [address], , [place], [address], Provider Name:Dennise Khanna, 08-03 10:30:00 AM, [address], , [place], [address], Provider Name:Theodore Christy, 2021-08-24 1 1:45:00 AM, [address] [facility], , [place], [address], Insurance Providers Payer Name Payer Address Payer Phone Insured Name Patient Relati onship to Insured Coverage Start Date Coverage End Date MEDICARE Part A and B [address] [facility] [phone] MACKENZIE DOLAN [facility]ly [facility] [address] [address] [facility] [phone] MACKENZIE DOLAN [id number]
--- OUTSIDE RECORDS SUMMARY | 2021-08-17 00:49 | CCD ---
Author Author [facility] Organization [facility] Address Unknown Phone Unavailable Care Team Providers Care Acquisitions Editor Name Role Phone Mackenzie Silva Unavailable PROBLEMS Type Condition ICD9-CM Code [id number] Code Onset Dates Condition S tatus W/U Status Risk SNOMED Code Notes Problem Anticoagulant long-term use Z79.01 Active confirmed 465908114 Problem Mixed hyperlipidemia E78.2 Active confirmed 087407156 Problem Major depressive disorder, single episode, unspecified F32.9 Active confirmed 32832727 Problem History of [place] (myocardial infarction) I25.2 Ac tive confirmed 736109991 Problem Vitamin D deficiency, unspecified E55.9 Active con firmed 74447187 Problem Non-pressure chronic ulcer o f other part of left foot with unspecified severity L97.529 Active confirmed 285488855 Problem Stage II pressure ulcer of sacral region L89.152 Active confirmed 315715418 Problem 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 Active confirmed 652062373 Problem Wound of right lower extremity S81.801A Active confirmed 280053723 Problem Pressure ulcer of right foot, stage 2 L89.892 Ac tive confirmed 730043937 Problem Stage IV pressure ulcer of sacral region L89.154 Active confirmed 266290793 Problem Stage II pressure ulcer of right hip L89.212 Act qamar confirmed 194686654 Problem Open wound of right foot, initial encounter S91.30 1A Active confirmed 686171620 Problem Disseminated candidiasis B37.7 Active confirmed 39916223 Problem 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 Active confir med 83183455 Problem Neurogenic incontinence N31.9 Active confirmed 154992126 Problem Iron deficiency anemia, unspecified iron deficiency an emia type D50.9 Active confirmed 69508172 Problem Recurrent UTI N39.0 Active confirmed 482793 001 Problem Nicotine use disorder F17.200 Active confirmed 03281275 Problem Neuropathic pain M79.2 Active confirmed 247 543066 Problem 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 Active confirmed 962012393 Problem Obesity (BMI 30-39.9) E66.9 Active confirmed 381893934 Problem Lumbar spondylosis M47.816 Active confirmed 105703735 Problem Prostate cancer screening Z12.5 Active confirmed 928151654 Problem Chronic pain syndrome G89.4 Active confirmed 152214855 Problem Postlaminectomy syndrome of lumbosacral region M96 .1 Active confirmed 519570505 Problem Lumbar spondylolysis M43.06 Active confirmed 029121019 Problem Ischemic cardiomyopathy I25.5 Active confirmed 461048860 Problem Hyperalgesia R20.8 Active confirmed 3738546 8 Problem Contracture of lower leg joint M24.569 Active confi rmed 5128755 Problem CKD (chronic kidney disease) stage 3, GFR 30-59 ml/min N18.3 Active confirmed 392850969 Problem Ataxia R27.0 Active confirmed 45656322 Problem Gout M10.9 Active confirmed 42743731 Problem NAFLD (nonalcoholic fatty liver disease) K76.0 Active confirmed 424489259 Problem Diabetes mellitus type 2 with complications E11.8 Active confirmed 887353044 Problem Lumbar post-laminectomy syndrome M96.1 Active conf irmed 157728915 Problem Hypertension, essential I10 Active confirmed 56776261 Problem Acquired phimosis N47.1 Active confirmed 26 1378264 Problem Sacral decubitus ulcer, stage IV L89.154 Active confirmed 883084377 Problem Phimosis N47.1 Active confirmed 475186585 Problem Peripheral vascular disease I73.9 Active confirmed 849709346 Problem Vitamin D deficiency E55.9 Active confirmed 78450830 Problem ED (erectile dysfunction) N52.9 Active confirmed 426798113 Problem ARON (obstructive sleep apnea) G47.33 Active confirm ed 10188241 Problem Intervertebral disc disorder with radiculopathy of lumbar region M51.16 Active confirmed 001075307728347 Problem Gastroesophageal reflux disease without esophagitis K21.9 Active confirmed 525029065 Problem Osteoporotic compression fracture of spine with delayed healing M80.88XG Active confirmed 188440712 Problem Paronychia of great toe of right foot L03.031 Ac tive confirmed 497502717 Problem Community acquired pneumonia J18.9 Active confirme d 104982957 Problem Pressure ulcer of coccygeal region, stage 2 L89.15 2 Active confirmed Problem Stage II pressure ulcer of right buttock L89.312 Active confirmed 492700305 Problem Encounter for immunization Z23 Active confirmed 225553407 Problem Constipation, chronic K59.09 Active confirmed 689484354 Problem Stage III pressure ulcer of sacral region L89.153 Active confirmed 561211314 Problem Venous insufficiency of both lower extremities I87 .2 Active confirmed 889639719 Problem Apraxia R48.2 Active confirmed 35350026 Problem Macrocytosis D75.89 Active confirmed 1078150 00 Problem Stage 2 moderate COPD by GOLD classification J44.9 Active confirmed 119453231 ALLERGIES Allergen (clinical drug ingredient) Drug/Non Drug Allergy do cumented on EMR Reaction Allergy Type Onset Date Status Wellbutrin agitation Drug Allergy Active fluoxetine PROzac(NDC Code:[address]-66) depression Drug Allergy Active sertraline Zoloft(NDC Code:[address]-01) Diarrhea Drug Allergy Active mirtazapine Remeron(NDC Code:[address]-39) nightmares Drug Allergy Active ENCOUNTERS from 1955 to 2021-08-13 Encounter Location Date Provider Diagnosis [facility] Wound Care [address] [phone] [place] [address] Jul, Mackenzie Silva Stage IV pressure ulcer of [...] Education Language: Question Answer Notes Languages spoken: Nauruan Worship: Question Answer Notes Worship 05 Restorationism Drug and Alcohol Question Answer Notes Total [...] Information VITAL SIGNS Weight 188 lbs Jul, Weight-kg 85.28 kg Jul, Height 69 in Jul, BMI 27.76 kg/m2 Jul, Heart Rate 67 /min Jul, Respiratory Rate 19 /min Jul, Temperature 98.3 degrees Fahrenheit Jul, Oximetry 96 Jul, Blood pressure systolic 116 mm Hg Jul, Blood pressure diastolic 66 mm Hg Jul, MEDICATIONS Medication SIG (Take, Route, Frequency, Duration) Notes Start Da te End Date Status oxyCODONE HCl 10 MG 1 tablet as needed Orally ev jimi 12 hrs PRN SEVERE PAIN MDD: 2 for 30 days Jun, Active Acetominophen-325 mg 325 mg 1 or 2 tabs orally every four ho urs prn for 30 Days Active May Have - large non-skid socks for dx=G82.21 (para plegia) Daily for 90 day(s) Apr, Active May Use 1 brace for left lower extremi ty as directed DX:R27.0 daily contracture of lower joint for 30 days fax to [phone] Mar, Active Aspirin 81 MG 1 tablet Orally Once a day for 90 day(s) Active May Use - as directed boot for right foot Daily-DX: M19.07 1 for 30 Days Dec, Active Macrobid 100 MG 1 capsule with food Orally bid for 10 day(s) Jun, Active Combivent Respimat 20-100 mcg/act 1 puff Inhalation fo ur times daily as needed for 30 Days Active Prevail Wet Wipes - as directed for dx=G82.21 (paraplegia) D aily for 90 day(s) Apr, Active CertaVite/Antioxidants - 1 tablet Orally Once a day for 30 Active Pantoprazole Sodium 40 MG 1 tablet Orally every morning for 90 day(s ) Active PARoxetine HCl 40 MG 1 tablet in the morning Orally Once a day f or 90 day(s) Active Fluconazole 200 MG 2 tablets Orally Daily for 90 day(s) Active CertaVite/Antioxidants - 1 tablet Orally Once a day for 90 day(s) Active Blood Glucose Test - as directed intradermally bid DX: E11.9 for 25 Active Carvedilol 6.25 MG 1 tab Orally bid for 90 day(s) Active Gabapentin 600 MG 1 tablet Orally three times daily for 90 day(s) Active Voltaren 1 % 4 gm Transdermal every 4-hours as needed for 30 Days Sep, Active Gait/Transfer Belt - as directed Apr, A ctive Reclast 5 MG/100ML as directed Intravenous YEARLY Active amLODIPine Besylate 2.5 MG 1 tablet Orally every moring for 90 day(s) Active Losartan Potassium 25 mg 1 tablet Orally every morning for 90 day(s) Active Rosuvastatin Calcium 10 MG 1 tablet Orally Once a day for 90 day(s) Active Ferrous Sulfate 325 (65 Fe) MG 1 tablet Orally Once a day for 30 day( s) Active Skelaxin 800 MG 1 tablet Orally Three times a day for 90 day(s) Active Hydrocerin - as directed Externally bid to lower legs from kn ees down for 30 Active MiraLax - 1 packet mixed with 8 ounces of fluid Or ally Once a day for 90 day(s) Active PROCEDURES from 1955 to 2021-08-13 Procedure Date Ordered Result Body Site Medication: 4% Lidocaine topical cream (Anecream) 5gm 2021-08-08 N/A Medication: Silver Nitrate Stick topically 2021-08-08 N/A RESULTS No Results REASON FOR VISIT Back Wound MEDICAL (GENERAL) HISTORY Type Description Date Medical History CAD, s/p AWMI post-op [place] ctomy-05/2017 very small apical thrombus, LVEF 40%-akinesis of apex, mid ant, mid anteroseptal, LV diastolic dysfx by 05/2017 TTE-Antecol/07/2017 RST s ischemia but focal/global abnormality, LVEF 28%, high risk-Jorge Aka/12/2017 cath-no significant CAD-[place]/sp ICD 01/12/2018-[place]/02/19/19 TTE c LVEF 50-55%/no french dysfx-[facility] [...] to 6.25 BID 02/18-06/03 Hospitalization History 1D [employer] RLE cellulitis-WBC 9. 7,CRP 14 (3 at [...] L89.154) PLAN OF TREATMENT Next Appt Details 3 Weeks Reason: Provider Name:Theodore Christy, 2021-08-24 1 1:45:00 AM, [address] [facility], , [place], [address], Provider Name:Mackenzie Silva, 10:15:00 AM, [address], , [place], [address], Insurance Providers Payer Name Payer Address Payer Phone Insured Name Patient Relati onship to Insured Coverage Start Date Coverage End Date [facility] [address] [id number] [facility] [address] MACKENZIE DOLAN [id number] MEDICARE Part A and B [address] [place] [phone] MACKENZIE DOLAN self
--- OUTSIDE RECORDS SUMMARY | 2021-08-17 00:49 | CCD ---
Author Author [facility] Organization [facility] Address Unknown Phone Unavailable Care Team Providers Care Fraternity Adviser Name Role Phone Mackenzie Silva Unavailable PROBLEMS Type Condition ICD9-CM Code WGP33-TF Code Onset Dates Condition S tatus W/U Status Risk SNOMED Code Notes Problem Anticoagulant long-term use Z79.01 Active confirmed 911401002 Problem Mixed hyperlipidemia E78.2 Active confirmed 260465295 Problem Major depressive disorder, single episode, unspecified F32.9 Active confirmed 88990931 Problem History of [place] (myocardial infarction) I25.2 Ac tive confirmed 004058767 Problem Vitamin D deficiency, unspecified E55.9 Active con firmed 95968597 Problem Non-pressure chronic ulcer o f other part of left foot with unspecified severity L97.529 Active confirmed 206127811 Problem Stage II pressure ulcer of sacral region L89.152 Active confirmed 987305640 Problem 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 Active confirmed 550430239 Problem Wound of right lower extremity S81.801A Active confirmed 426624807 Problem Pressure ulcer of right foot, stage 2 L89.892 Ac tive confirmed 355497124 Problem Stage IV pressure ulcer of sacral region L89.154 Active confirmed 967893673 Problem Stage II pressure ulcer of right hip L89.212 Act qamar confirmed 039107941 Problem Open wound of right foot, initial encounter S91.30 1A Active confirmed 193398929 Problem Disseminated candidiasis B37.7 Active confirmed 67299672 Problem 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 Active confir med 42797665 Problem Neurogenic incontinence N31.9 Active confirmed 547813206 Problem Iron deficiency anemia, unspecified iron deficiency an emia type D50.9 Active confirmed 30366524 Problem Recurrent UTI N39.0 Active confirmed 850843 001 Problem Nicotine use disorder F17.200 Active confirmed 63389994 Problem Neuropathic pain M79.2 Active confirmed 247 825025 Problem 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 Active confirmed 207576478 Problem Obesity (BMI 30-39.9) E66.9 Active confirmed 841502559 Problem Lumbar spondylosis M47.816 Active confirmed 166918968 Problem Prostate cancer screening Z12.5 Active confirmed 169056275 Problem Chronic pain syndrome G89.4 Active confirmed 537627519 Problem Postlaminectomy syndrome of lumbosacral region M96 .1 Active confirmed 601619000 Problem Lumbar spondylolysis M43.06 Active confirmed 542400230 Problem Ischemic cardiomyopathy I25.5 Active confirmed 816720770 Problem Hyperalgesia R20.8 Active confirmed 8008506 8 Problem Contracture of lower leg joint M24.569 Active confi rmed 1421426 Problem CKD (chronic kidney disease) stage 3, GFR 30-59 ml/min N18.3 Active confirmed 095935409 Problem Ataxia R27.0 Active confirmed 96917557 Problem Gout M10.9 Active confirmed 99131895 Problem NAFLD (nonalcoholic fatty liver disease) K76.0 Active confirmed 630921762 Problem Diabetes mellitus type 2 with complications E11.8 Active confirmed 602548178 Problem Lumbar post-laminectomy syndrome M96.1 Active conf irmed 768689340 Problem Hypertension, essential I10 Active confirmed 44692865 Problem Acquired phimosis N47.1 Active confirmed 26 8253850 Problem Sacral decubitus ulcer, stage IV L89.154 Active confirmed 785733390 Problem Phimosis N47.1 Active confirmed 183933796 Problem Peripheral vascular disease I73.9 Active confirmed 080946873 Problem Vitamin D deficiency E55.9 Active confirmed 96124737 Problem ED (erectile dysfunction) N52.9 Active confirmed 102011956 Problem ARON (obstructive sleep apnea) G47.33 Active confirm ed 11374146 Problem Intervertebral disc disorder with radiculopathy of lumbar region M51.16 Active confirmed 657122338282417 Problem Gastroesophageal reflux disease without esophagitis K21.9 Active confirmed 367560852 Problem Osteoporotic compression fracture of spine with delayed healing M80.88XG Active confirmed 525884852 Problem Paronychia of great toe of right foot L03.031 Ac tive confirmed 561744563 Problem Community acquired pneumonia J18.9 Active confirme d 950056051 Problem Pressure ulcer of coccygeal region, stage 2 L89.15 2 Active confirmed Problem Stage II pressure ulcer of right buttock L89.312 Active confirmed 705007328 Problem Encounter for immunization Z23 Active confirmed 704322536 Problem Constipation, chronic K59.09 Active confirmed 690439341 Problem Stage III pressure ulcer of sacral region L89.153 Active confirmed 770015463 Problem Venous insufficiency of both lower extremities I87 .2 Active confirmed 939944838 Problem Apraxia R48.2 Active confirmed 01424244 Problem Macrocytosis D75.89 Active confirmed 3520119 00 Problem Stage 2 moderate COPD by GOLD classification J44.9 Active confirmed 612847024 ALLERGIES Allergen (clinical drug ingredient) Drug/Non Drug Allergy do cumented on EMR Reaction Allergy Type Onset Date Status Wellbutrin agitation Drug Allergy Active fluoxetine PROzac(NDC Code:[address]-41) depression Drug Allergy Active sertraline Zoloft(NDC Code:[address]-05) Diarrhea Drug Allergy Active mirtazapine Remeron(NDC Code:[address]-68) nightmares Drug Allergy Active ENCOUNTERS from 1955 to 2021-08-07 Encounter Location Date Provider Diagnosis [facility] Wound Care [address] [phone] [place] [address] Jul, Mackenzie Silva IMMUNIZATIONS Vaccine Route Administration Date Status COVID-19 [...] Education Language: Question Answer Notes Languages spoken: Australian Lutheran: Question Answer Notes Lutheran 05 Roman Catholic Drug and Alcohol Question Answer Notes Total [...] lower joint for 30 days fax to [phone] Mar, Active Carvedilol 6.25 MG 1 tab [...] Information RESULTS No Results REASON FOR VISIT Discuss Wound MEDICAL (GENERAL) HISTORY Type Description Date Medical History CAD, s/p AWMI post-op [place] ctomy-05/2017 very small apical thrombus, LVEF 40%-akinesis of apex, mid ant, mid anteroseptal, LV diastolic dysfx by 05/2017 TTE-Antecol/07/2017 RST s ischemia but focal/global abnormality, LVEF 28%, high risk-Jorge Aka/12/2017 cath-no significant CAD-[place]/sp ICD 01/12/2018-[place]/02/19/19 TTE c LVEF 50-55%/no french [...] to 6.25 BID 02/18-06/03 Hospitalization History 1D [employer] RLE cellulitis-WBC 9. 7,CRP 14 (3 at dc), -CT R tib/fib for abscess, -RLE DVT US, rxed c vanco/ceftr, dced on cefdinir 7D, -BCX2 04/10- Goals Section No Information Health Concerns No Information MEDICAL EQUIPMENT No Information MENTAL STATUS No Information FUNCTIONAL STATUS No Information ASSESSMENTS No Information PLAN OF TREATMENT Medication Medication Name Sig Start Date Stop Date Aspirin 81 MG 1 tablet Orally Once a day for 90 day(s) Next Appt Details Provider Name:Theodore Christy, 2021-08-24 1 1:45:00 AM, [address] [facility], , [place], [address], Provider Name:Mackenzie Silva, 10:15:00 AM, [address], , [place], [address], Insurance Providers Payer Name Payer Address Payer Phone Insured Name Patient Relati onship to Insured Coverage Start Date Coverage End Date MEDICARE Part A and B [address] [facility] [address] MACKENZIE DOLAN [facility] [address] [address] [facility] [id number] [phone] MACKENZIE DOLAN [id number]
--- OUTSIDE RECORDS SUMMARY | 2021-08-17 00:50 | CCD ---
Author Author [facility] Organization [facility] Address Unknown Phone Unavailable Care Team Providers Care Director Of Officiating Name Role Phone Theodore Christy Unavailable PROBLEMS Type Condition ICD9-CM Code UIG28-WS Code Onset Dates Condition S tatus W/U Status Risk SNOMED Code Notes Problem Stage II pressure ulcer of right hip L89.212 Act qamar confirmed 453129591 Problem Major depressive disorder, single episode, unspecified F32.9 Active confirmed 93256962 Problem Anticoagulant long-term use Z79.01 Active confirmed 416665441 Problem Vitamin D deficiency, unspecified E55.9 Active con firmed 41735292 Problem Mixed hyperlipidemia E78.2 Active confirmed 091210248 Problem 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 Active confirmed 819619450 Problem Wound of right lower extremity S81.801A Active confirmed 329436180 Problem ED (erectile dysfunction) N52.9 Active confirmed 736230452 Problem ARNO (obstructive sleep apnea) G47.33 Active confirm ed 26255672 Problem Stage IV pressure ulcer of sacral region L89.154 Active confirmed 226659416 Problem Stage II pressure ulcer of sacral region L89.152 Active confirmed 599325545 Problem Open wound of right foot, initial encounter S91.30 1A Active confirmed 359826517 Problem Pressure ulcer of right foot, stage 2 L89.892 Ac tive confirmed 094426452 Problem Obesity (BMI 30-39.9) E66.9 Active confirmed 206155588 Problem Prostate cancer screening Z12.5 Active confirmed 284930111 Problem Disseminated candidiasis B37.7 Active confirmed 67624607 Problem 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 Active confir med 03944064 Problem Nicotine use disorder F17.200 Active confirmed 86515818 Problem Neurogenic incontinence N31.9 Active confirmed 178227516 Problem 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 Active confirmed 028183877 Problem History of [place] (myocardial infarction) I25.2 Ac tive confirmed 152716866 Problem Lumbar spondylosis M47.816 Active confirmed 370142956 Problem Iron deficiency anemia, unspecified iron deficiency an emia type D50.9 Active confirmed 75333808 Problem Neuropathic pain M79.2 Active confirmed 247 010687 Problem NAFLD (nonalcoholic fatty liver disease) K76.0 Active confirmed 796284038 Problem Lumbar spondylolysis M43.06 Active confirmed 868253257 Problem Chronic pain syndrome G89.4 Active confirmed 227181651 Problem Hyperalgesia R20.8 Active confirmed 6745077 8 Problem Postlaminectomy syndrome of lumbosacral region M96 .1 Active confirmed 613486984 Problem CKD (chronic kidney disease) stage 3, GFR 30-59 ml/min N18.3 Active confirmed 873695110 Problem Ischemic cardiomyopathy I25.5 Active confirmed 001256305 Problem Recurrent UTI N39.0 Active confirmed 492988 001 Problem Gout M10.9 Active confirmed 72430849 Problem Diabetes mellitus type 2 with complications E11.8 Active confirmed 321481130 Problem Ataxia R27.0 Active confirmed 76079823 Problem Hypertension, essential I10 Active confirmed 91191500 Problem Stage III pressure ulcer of sacral region L89.153 Active confirmed 172890445 Problem Sacral decubitus ulcer, stage IV L89.154 Active confirmed 032323143 Problem Lumbar post-laminectomy syndrome M96.1 Active conf irmed 975063653 Problem Vitamin D deficiency E55.9 Active confirmed 33441735 Problem Acquired phimosis N47.1 Active confirmed 26 3049695 Problem Intervertebral disc disorder with radiculopathy of lumbar region M51.16 Active confirmed 202222613613467 Problem Gastroesophageal reflux disease without esophagitis K21.9 Active confirmed 112524757 Problem Phimosis N47.1 Active confirmed 299285447 Problem Peripheral vascular disease I73.9 Active confirmed 441409869 Problem Non-pressure chronic ulcer o f other part of left foot with unspecified severity L97.529 Active confirmed 597746698 Problem Osteoporotic compression fracture of spine with delayed healing M80.88XG Active confirmed 693427627 Problem Paronychia of great toe of right foot L03.031 Ac tive confirmed 590810308 Problem Stage 2 moderate COPD by GOLD classification J44.9 Active confirmed 958481805 Problem Constipation, chronic K59.09 Active confirmed 431126493 Problem Pressure ulcer of coccygeal region, stage 2 L89.15 2 Active confirmed Problem Contracture of lower leg joint M24.569 Active confi rmed 3837469 Problem Stage II pressure ulcer of right buttock L89.312 Active confirmed 765126233 Problem Community acquired pneumonia J18.9 Active confirme d 109964012 Problem Venous insufficiency of both lower extremities I87 .2 Active confirmed 193487138 Problem Apraxia R48.2 Active confirmed 70979249 Problem Macrocytosis D75.89 Active confirmed 0625696 00 ALLERGIES Allergen (clinical drug ingredient) Drug/Non Drug Allergy do cumented on EMR Reaction Allergy Type Onset Date Status Wellbutrin agitation Drug Allergy Active fluoxetine PROzac(ND Code:[address]-78) depression Drug Allergy Active sertraline Zoloft(ND Code:[address]-75) Diarrhea Drug Allergy Active mirtazapine Remeron(NDC Code:[address]-83) nightmares Drug Allergy Active ENCOUNTERS from 1955 to 2021-07-03 Encounter Location Date Provider Diagnosis [address] [phone] [place] [address] Jun, Theodore Christy Lumbar spondylosis M47.816 IMMUNIZATIONS Vaccine Route Administration Date Status Influenza Pharmacy Given Unknown Jul 10, 2018 Refused Influenza Pharmacy Given IM Intramuscular Jun 24, 2018 Admini stered Influenza 18 yrs & older Flublok IM Intramuscular Jul 11, 2020 Administered Influenza 18 yrs & older Flublok Unknown Jul 09, 2019 Others Influenza 6mo & up Fluzone Unknown Aug 06, 2019 Refus ed Influenza 6mo & up Fluzone IM Intramuscular Jul 21, 2017 Admi nistered COVID-19 dose #1 given elsewhere Unspecified IM Intramuscular [facility] 2020 Administered Influenza 6mo & up Fluzone IM Intramuscular Aug 25, 2012 Admi nistered Influenza 6mo & up Fluzone [...] Education Language: Question Answer Notes Languages spoken: Montserratian Jain: Question Answer Notes Jain 05 Manda[facility] Drug and Alcohol Question Answer Notes Total [...] Notes Start Da te End Date Status PARoxetine HCl 40 MG 1 tablet in the morning Orally Once a day f or 90 day(s) Active Prevail Wet Wipes - as directed for dx=G82.21 (paraplegia) D aily for 90 day(s) Apr, Active Aspirin 81 MG 1 tablet Orally Once a day for 90 day(s) Active Voltaren 1 % 4 gm Transdermal every 4-hours as needed for 30 Days Sep, Active amLODIPine Besylate 2.5 MG 1 tablet Orally every moring for 90 day(s) Active Ferrous Sulfate 325 (65 Fe) MG 1 tablet Orally Once a day for 30 day( s) Active Gabapentin 600 MG 1 tablet Orally three times daily for 90 day(s) Active Gait/Transfer Belt - as directed Apr, A ctive Blood Glucose Test - as directed intradermally bid DX: E11.9 for 25 Active May Have - large non-skid socks for dx=G82.21 (para plegia) Daily for 90 day(s) Apr, Active CertaVite/Antioxidants - 1 tablet Orally Once a day for 90 day(s) Active May Use - as directed boot for right foot Daily-DX: M19.07 1 for 30 Days Dec, Active Reclast 5 MG/100ML as directed Intravenous YEARLY Active Rosuvastatin Calcium 10 MG 1 tablet Orally Once a day for 90 day(s) Active Rosuvastatin Calcium 10 MG 1 tablet Orally Once a day for 30 Days DUP LICATE Not-Taking oxyCODONE HCl 10 MG 1 tablet as needed Orally ev jimi 12 hrs prn pain MDD 2 for 30 days DUPLICATE May, Not-Taking Losartan Potassium 25 mg 1 tablet Orally every morning for 90 day(s) Active Acetominophen-325 mg 325 mg 1 or 2 tabs orally every four ho urs prn for 30 Days Active Hydrocerin - as directed Externally bid to lower legs from kn ees down for 30 Active Carvedilol 6.25 MG 1 tab Orally bid for 90 day(s) Active May Use 1 brace for left lower extremi ty as directed DX:R27.0 daily contracture of lower joint for 30 days fax to [phone] Mar, Active MiraLax - 1 packet mixed with 8 ounces of fluid Or ally Once a day for 90 day(s) Active Pantoprazole Sodium 40 MG 1 tablet Orally every morning for 90 day(s ) Active Skelaxin 800 MG 1 tablet Orally Three times a day for 90 day(s) Active Combivent Respimat 20-100 mcg/act 1 puff Inhalation fo ur times daily as needed for 30 Days Active metFORMIN HCl ER 500 MG 1 tab Orally bid for 90 day(s) Not-Taking Fluconazole 200 MG 2 tablets Orally Daily for 90 day(s) Active CertaVite/Antioxidants - 1 tablet Orally Once a day for 30 Active oxyCODONE HCl 10 MG 1 tablet as needed Orally ev jimi 12 hrs PRN SEVERE PAIN MDD: 2 for 30 days Jun, Active PROCEDURES No Information RESULTS No Results REASON FOR VISIT ? UTI MEDICAL (GENERAL) HISTORY Type Description Date Medical History CAD, s/p AWMI post-op [place] ctomy-05/2017 very small apical thrombus, LVEF 40%-akinesis of apex, mid ant, mid anteroseptal, LV diastolic dysfx by 05/2017 TTE-[facility] RST s ischemia but focal/global abnormality, LVEF 28%, high risk-[facility]/12/2017 cath-no significant CAD-[place]/sp ICD 01/12/2018-[place]/02/19/19 TTE c LVEF 50-55%/no french [...] to 6.25 BID 02/18-06/03 Hospitalization History 1D [place] [facility] RLE cellulitis-WBC 9. 7,CRP 14 (3 at dc), -CT R tib/fib for abscess, -RLE DVT US, rxed c vanco/ceftr, dced on cefdinir 7D, -BCX2 04/10- Goals Section No Information Health Concerns No Information MEDICAL EQUIPMENT No Information MENTAL STATUS No Information FUNCTIONAL STATUS No Information ASSESSMENTS Encounter Date Diagnosis Assessment Notes Treatment Notes Treatm ent Clinical Notes Jun, Lumbar spondylosis (ICD-10 - M47.816) PLAN OF TREATMENT Medication Medication Name Sig Start Date Stop Date Gabapentin 600 MG 1 tablet Orally three times daily for 90 day(s ) oxyCODONE HCl 10 MG 1 tablet as needed Orally ev jimi 12 hrs PRN SEVERE PAIN MDD: 2 for 30 days Jun, CertaVite/Antioxidants - 1 tablet Orally Once a day for 90 day(s ) Next Appt Details Provider Name:Valerei Louis, 2020-09 0 01:45:00 PM, [address] [facility], , [place], [address], Provider Name:Mackenzie Silva, 11:00:00 AM, [address], , [place], [address], Provider Name:Theodore Christy, 2021-08-24 1 1:45:00 AM, [address] [facility], , [place], [address], Insurance Providers Payer Name Payer Address Payer Phone Insured Name Patient Relati onship to Insured Coverage Start Date Coverage End Date [facility] CLAIM ADMIN WORK COMP [id number] [address] MACKENZIE DOLAN 2007
--- OUTSIDE RECORDS SUMMARY | 2021-08-17 00:50 | CCD ---
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 Name Role Phone Warren Davila Unavailable PROBLEMS Type Condition ICD9-CM Code JTU12-QS Code Onset Dates Condition S tatus W/U Status Risk SNOMED Code Notes Problem Anticoagulant long-term use Z79.01 Active confirmed 925297910 Problem Mixed hyperlipidemia E78.2 Active confirmed 330011586 Problem Major depressive disorder, single episode, unspecified F32.9 Active confirmed 09412139 Problem History of [place] (myocardial infarction) I25.2 Ac tive confirmed 259898797 Problem Vitamin D deficiency, unspecified E55.9 Active con firmed 14778786 Problem Non-pressure chronic ulcer o f other part of left foot with unspecified severity L97.529 Active confirmed 579758189 Problem Stage II pressure ulcer of sacral region L89.152 Active confirmed 993082500 Problem 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 Active confirmed 328283388 Problem Wound of right lower extremity S81.801A Active confirmed 321293884 Problem Pressure ulcer of right foot, stage 2 L89.892 Ac tive confirmed 143375687 Problem Stage IV pressure ulcer of sacral region L89.154 Active confirmed 137450038 Problem Stage II pressure ulcer of right hip L89.212 Act qamar confirmed 496728364 Problem Open wound of right foot, initial encounter S91.30 1A Active confirmed 573292775 Problem Disseminated candidiasis B37.7 Active confirmed 03317885 Problem 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 Active confir med 06767892 Problem Neurogenic incontinence N31.9 Active confirmed 194578592 Problem Iron deficiency anemia, unspecified iron deficiency an emia type D50.9 Active confirmed 15133583 Problem Recurrent UTI N39.0 Active confirmed 793050 001 Problem Nicotine use disorder F17.200 Active confirmed 95549454 Problem Neuropathic pain M79.2 Active confirmed 247 447218 Problem 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 Active confirmed 208024135 Problem Obesity (BMI 30-39.9) E66.9 Active confirmed 387958332 Problem Lumbar spondylosis M47.816 Active confirmed 859136134 Problem Prostate cancer screening Z12.5 Active confirmed 577610171 Problem Chronic pain syndrome G89.4 Active confirmed 651817823 Problem Postlaminectomy syndrome of lumbosacral region M96 .1 Active confirmed 016679955 Problem Lumbar spondylolysis M43.06 Active confirmed 455819915 Problem Ischemic cardiomyopathy I25.5 Active confirmed 642812721 Problem Hyperalgesia R20.8 Active confirmed 3873256 8 Problem Contracture of lower leg joint M24.569 Active confi rmed 0750271 Problem CKD (chronic kidney disease) stage 3, GFR 30-59 ml/min N18.3 Active confirmed 351401172 Problem Ataxia R27.0 Active confirmed 93213880 Problem Gout M10.9 Active confirmed 84061854 Problem NAFLD (nonalcoholic fatty liver disease) K76.0 Active confirmed 820689408 Problem Diabetes mellitus type 2 with complications E11.8 Active confirmed 758533091 Problem Lumbar post-laminectomy syndrome M96.1 Active conf irmed 349777453 Problem Hypertension, essential I10 Active confirmed 05321740 Problem Acquired phimosis N47.1 Active confirmed 26 7051994 Problem Sacral decubitus ulcer, stage IV L89.154 Active confirmed 185382577 Problem Phimosis N47.1 Active confirmed 156566230 Problem Peripheral vascular disease I73.9 Active confirmed 873841350 Problem Vitamin D deficiency E55.9 Active confirmed 78674564 Problem ED (erectile dysfunction) N52.9 Active confirmed 793523313 Problem ARON (obstructive sleep apnea) G47.33 Active confirm ed 62148955 Problem Intervertebral disc disorder with radiculopathy of lumbar region M51.16 Active confirmed 359551532797093 Problem Gastroesophageal reflux disease without esophagitis K21.9 Active confirmed 549917120 Problem Osteoporotic compression fracture of spine with delayed healing M80.88XG Active confirmed 348829821 Problem Paronychia of great toe of right foot L03.031 Ac tive confirmed 398595780 Problem Community acquired pneumonia J18.9 Active confirme d 576256570 Problem Pressure ulcer of coccygeal region, stage 2 L89.15 2 Active confirmed Problem Stage II pressure ulcer of right buttock L89.312 Active confirmed 458447386 Problem Encounter for immunization Z23 Active confirmed 953994460 Problem Constipation, chronic K59.09 Active confirmed 255148950 Problem Stage III pressure ulcer of sacral region L89.153 Active confirmed 388480547 Problem Venous insufficiency of both lower extremities I87 .2 Active confirmed 233723507 Problem Apraxia R48.2 Active confirmed 96851538 Problem Macrocytosis D75.89 Active confirmed 0402085 00 Problem Stage 2 moderate COPD by GOLD classification J44.9 Active confirmed 657913395 ALLERGIES Allergen (clinical drug ingredient) Drug/Non Drug Allergy do cumented on EMR Reaction Allergy Type Onset Date Status Wellbutrin agitation Drug Allergy Active fluoxetine PROzac(NDC Code:[address]-49) depression Drug Allergy Active sertraline Zoloft(NDC Code:[address]-39) Diarrhea Drug Allergy Active mirtazapine Remeron(NDC Code:[address]-13) nightmares Drug Allergy Active ENCOUNTERS from 1955 to 2021-07-05 Encounter Location Date Provider Diagnosis [facility] [address] [phone] [place] [address] Jun, Warren Davila IMMUNIZATIONS Vaccine Route Administration Date Status Influenza [...] dose #1 given elsewhere Unspecified IM Intramuscular [facility] 2020 Administered Influenza 6mo & up Fluzone [...] Education Language: Question Answer Notes Languages spoken: Micronesian Cheondoism: Question Answer Notes Cheondoism 05 [facility] Drug and Alcohol Question Answer Notes Total [...] Notes Start Da te End Date Status Carvedilol 6.25 MG 1 tab Orally bid for 90 day(s) Active Skelaxin 800 MG 1 tablet Orally Three times a day for 90 day(s) Active Losartan Potassium 25 mg 1 tablet Orally every morning for 90 day(s) Active Ferrous Sulfate 325 (65 Fe) MG 1 tablet Orally Once a day for 30 day( s) Active May Use 1 brace for left lower extremi ty as directed DX:R27.0 daily contracture of lower joint for 30 days fax to [phone] Mar, Active Fluconazole 200 MG 2 tablets Orally Daily for 90 day(s) Active Pantoprazole Sodium 40 MG 1 tablet Orally every morning for 90 day(s ) Active Reclast 5 MG/100ML as directed Intravenous YEARLY Active Gait/Transfer Belt - as directed Apr, A ctive MiraLax - 1 packet mixed with 8 ounces of fluid Or ally Once a day for 90 day(s) Active Gabapentin 600 MG 1 tablet Orally three times daily for 90 day(s) Active CertaVite/Antioxidants - 1 tablet Orally Once a day for 90 day(s) Active oxyCODONE HCl 10 MG 1 tablet as needed Orally ev jimi 12 hrs PRN SEVERE PAIN MDD: 2 for 30 days Jun, Active Aspirin 81 MG 1 tablet Orally Once a day for 90 day(s) Active Prevail Wet Wipes - as directed for dx=G82.21 (paraplegia) D aily for 90 day(s) Apr, Active Combivent Respimat 20-100 mcg/act 1 puff Inhalation fo ur times daily as needed for 30 Days Active PARoxetine HCl 40 MG 1 tablet in the morning Orally Once a day f or 90 day(s) Active Macrobid 100 MG 1 capsule with food Orally bid for 10 day(s) Jun, Active May Have - large non-skid socks for dx=G82.21 (para plegia) Daily for 90 day(s) Apr, Active Hydrocerin - as directed Externally bid to lower legs from kn ees down for 30 Active amLODIPine Besylate 2.5 MG 1 tablet Orally every moring for 90 day(s) Active Acetominophen-325 mg 325 mg 1 or 2 tabs orally every four ho urs prn for 30 Days Active Voltaren 1 % 4 gm Transdermal every 4-hours as needed for 30 Days Sep, Active Blood Glucose Test - as directed intradermally bid DX: E11.9 for 25 Active Rosuvastatin Calcium 10 MG 1 tablet Orally Once a day for 90 day(s) Active May Use - as directed boot for right foot Daily-DX: M19.07 1 for 30 Days Dec, Active CertaVite/Antioxidants - 1 tablet Orally Once a day for 30 Active PROCEDURES No Information RESULTS No Results REASON FOR VISIT call patient about janee irwin MEDICAL (GENERAL) HISTORY Type Description Date Medical History CAD, s/p AWMI post-op [place] ctomy-05/2017 very small apical thrombus, LVEF 40%-akinesis of apex, mid ant, mid anteroseptal, LV diastolic dysfx by 05/2017 TTE-[facility] RST s ischemia but focal/global abnormality, LVEF 28%, high risk-[place]/12/2017 cath-no significant CAD-[place]/sp ICD 01/12/2018-[place]/02/19/19 TTE c LVEF 50-55%/no french dysfx-[facility] [...] to 6.25 BID 02/18-06/03 Hospitalization History 1D [employer] RLE cellulitis-WBC 9. 7,CRP 14 (3 at dc), -CT R tib/fib for abscess, -RLE DVT US, rxed c vanco/ceftr, dced on cefdinir 7D, -BCX2 04/10- Goals Section No Information Health Concerns No Information MEDICAL EQUIPMENT No Information MENTAL STATUS No Information FUNCTIONAL STATUS No Information ASSESSMENTS No Information PLAN OF TREATMENT Medication Medication Name Sig Start Date Stop Date Macrobid 100 MG 1 capsule with food Orally bid for 10 day(s) Jun, Next Appt Details Provider Name:Mackenzie Silva, 11:00:00 AM, [address], , [place], [address], Provider Name:Dennise Khanna, 08-03 10:30:00 AM, [address], , [place], [address], Provider Name:Theodore Christy, 2021-08-24 1 1:45:00 AM, [address] [facility], , [place], [address], Insurance Providers Payer Name Payer Address Payer Phone Insured Name Patient Relati onship to Insured Coverage Start Date Coverage End Date MEDICARE Part A and B [address] [facility] [address] MACKENZIE DOLAN [facility] [address] [address] [facility] [phone] MACKENZIE DOLAN [id number]
--- OUTSIDE RECORDS SUMMARY | 2021-08-17 00:50 | CCD ---
Author Author [facility] Organization [facility] Address Unknown Phone Unavailable Care Team Providers Care Senior Engineering Team Leader Name Role Phone Mackenzie Silva Unavailable PROBLEMS Type Condition ICD9-CM Code [id number] Code Onset Dates Condition S tatus W/U Status Risk SNOMED Code Notes Problem Stage II pressure ulcer of right hip L89.212 Act qamar confirmed 023218029 Problem Major depressive disorder, single episode, unspecified F32.9 Active confirmed 76346681 Problem Anticoagulant long-term use Z79.01 Active confirmed 570745363 Problem Vitamin D deficiency, unspecified E55.9 Active con firmed 77915697 Problem Mixed hyperlipidemia E78.2 Active confirmed 080371503 Problem 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 Active confirmed 538043987 Problem Wound of right lower extremity S81.801A Active confirmed 405134168 Problem ED (erectile dysfunction) N52.9 Active confirmed 212889715 Problem ARON (obstructive sleep apnea) G47.33 Active confirm ed 05541772 Problem Stage IV pressure ulcer of sacral region L89.154 Active confirmed 844144155 Problem Stage II pressure ulcer of sacral region L89.152 Active confirmed 129293561 Problem Open wound of right foot, initial encounter S91.30 1A Active confirmed 602009021 Problem Pressure ulcer of right foot, stage 2 L89.892 Ac tive confirmed 673369069 Problem Obesity (BMI 30-39.9) E66.9 Active confirmed 686986252 Problem Prostate cancer screening Z12.5 Active confirmed 950362547 Problem Disseminated candidiasis B37.7 Active confirmed 70703469 Problem 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 Active confir med 12052817 Problem Nicotine use disorder F17.200 Active confirmed 02811141 Problem Neurogenic incontinence N31.9 Active confirmed 472046589 Problem 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 Active confirmed 250180051 Problem History of [place] (myocardial infarction) I25.2 Ac tive confirmed 063383789 Problem Lumbar spondylosis M47.816 Active confirmed 945096673 Problem Iron deficiency anemia, unspecified iron deficiency an emia type D50.9 Active confirmed 60191009 Problem Neuropathic pain M79.2 Active confirmed 247 072581 Problem NAFLD (nonalcoholic fatty liver disease) K76.0 Active confirmed 381248226 Problem Lumbar spondylolysis M43.06 Active confirmed 650346753 Problem Chronic pain syndrome G89.4 Active confirmed 671298535 Problem Hyperalgesia R20.8 Active confirmed 2935603 8 Problem Postlaminectomy syndrome of lumbosacral region M96 .1 Active confirmed 455943455 Problem CKD (chronic kidney disease) stage 3, GFR 30-59 ml/min N18.3 Active confirmed 285323707 Problem Ischemic cardiomyopathy I25.5 Active confirmed 672112966 Problem Recurrent UTI N39.0 Active confirmed 380180 001 Problem Gout M10.9 Active confirmed 20044229 Problem Diabetes mellitus type 2 with complications E11.8 Active confirmed 399134645 Problem Ataxia R27.0 Active confirmed 94414232 Problem Hypertension, essential I10 Active confirmed 22985824 Problem Stage III pressure ulcer of sacral region L89.153 Active confirmed 117762719 Problem Sacral decubitus ulcer, stage IV L89.154 Active confirmed 054468355 Problem Lumbar post-laminectomy syndrome M96.1 Active conf irmed 364575188 Problem Vitamin D deficiency E55.9 Active confirmed 43159696 Problem Acquired phimosis N47.1 Active confirmed 26 8503943 Problem Intervertebral disc disorder with radiculopathy of lumbar region M51.16 Active confirmed 320761455125974 Problem Gastroesophageal reflux disease without esophagitis K21.9 Active confirmed 042331121 Problem Phimosis N47.1 Active confirmed 063163988 Problem Peripheral vascular disease I73.9 Active confirmed 434004469 Problem Non-pressure chronic ulcer o f other part of left foot with unspecified severity L97.529 Active confirmed 709317000 Problem Osteoporotic compression fracture of spine with delayed healing M80.88XG Active confirmed 289082955 Problem Paronychia of great toe of right foot L03.031 Ac tive confirmed 535132700 Problem Stage 2 moderate COPD by GOLD classification J44.9 Active confirmed 041639324 Problem Constipation, chronic K59.09 Active confirmed 616796424 Problem Pressure ulcer of coccygeal region, stage 2 L89.15 2 Active confirmed Problem Contracture of lower leg joint M24.569 Active confi rmed 3471611 Problem Stage II pressure ulcer of right buttock L89.312 Active confirmed 832910801 Problem Community acquired pneumonia J18.9 Active confirme d 225446612 Problem Venous insufficiency of both lower extremities I87 .2 Active confirmed 572529158 Problem Apraxia R48.2 Active confirmed 04081316 Problem Macrocytosis D75.89 Active confirmed 3223025 00 ALLERGIES Allergen (clinical drug ingredient) Drug/Non Drug Allergy do cumented on EMR Reaction Allergy Type Onset Date Status Wellbutrin agitation Drug Allergy Active fluoxetine PROzac(ND Code:[address]-97) depression Drug Allergy Active sertraline Zoloft(ND Code:[address]-44) Diarrhea Drug Allergy Active mirtazapine Remeron(ND Code:[address]-01) nightmares Drug Allergy Active ENCOUNTERS from 1955 to 2021-07-03 Encounter Location Date Provider Diagnosis [facility] [address] [phone] [place] [address] Jun, Mackenzie Silva IMMUNIZATIONS Vaccine Route Administration Date [...] #1 given elsewhere Unspecified IM Intramuscular [facility] 2020 Administered Influenza 6mo & up Fluzone [...] Education Language: Question Answer Notes Languages spoken: Danish Jain: Question Answer Notes Jain 05 Protestant Drug and Alcohol Question Answer Notes Total [...] Notes Start Da te End Date Status Pantoprazole Sodium 40 MG 1 tablet Orally every morning for 90 day(s ) Active Voltaren 1 % 4 gm Transdermal every 4-hours as needed for 30 Days Sep, Active oxyCODONE HCl 10 MG 1 tablet as needed Orally ev jimi 12 hrs prn pain MDD 2 for 30 days DUPLICATE May, Not-Taking May Use 1 brace for left lower extremi ty as directed DX:R27.0 daily contracture of lower joint for 30 days fax to [phone] Mar, Active PARoxetine HCl 40 MG 1 tablet in the morning Orally Once a day f or 90 day(s) Active Gait/Transfer Belt - as directed Apr, A ctive Aspirin 81 MG 1 tablet Orally Once a day for 90 day(s) Active Prevail Wet Wipes - as directed for dx=G82.21 (paraplegia) D aily for 90 day(s) Apr, Active Blood Glucose Test - as directed intradermally bid DX: E11.9 for 25 Active amLODIPine Besylate 2.5 MG 1 tablet Orally every moring for 90 day(s) Active Ferrous Sulfate 325 (65 Fe) MG 1 tablet Orally Once a day for 30 day( s) Active May Use - as directed boot for right foot Daily-DX: M19.07 1 for 30 Days Dec, Active Rosuvastatin Calcium 10 MG 1 tablet Orally Once a day for 90 day(s) Active Skelaxin 800 MG 1 tablet Orally Three times a day for 90 day(s) Active Combivent Respimat 20-100 mcg/act 1 puff Inhalation fo ur times daily as needed for 30 Days Active Hydrocerin - as directed Externally bid to lower legs from kn ees down for 30 Active Carvedilol 6.25 MG 1 tab Orally bid for 90 day(s) Active MiraLax - 1 packet mixed with 8 ounces of fluid Or ally Once a day for 90 day(s) Active Reclast 5 MG/100ML as directed Intravenous YEARLY Active May Have - large non-skid socks for dx=G82.21 (para plegia) Daily for 90 day(s) Apr, Active Losartan Potassium 25 mg 1 tablet Orally every morning for 90 day(s) Active Rosuvastatin Calcium 10 MG 1 tablet Orally Once a day for 30 Days DUP LICATE Not-Taking Gabapentin 600 MG 1 tablet Orally three times daily for 90 day(s) Active Acetominophen-325 mg 325 mg 1 or 2 tabs orally every four ho urs prn for 30 Days Active Fluconazole 200 MG 2 tablets Orally Daily for 90 day(s) Active CertaVite/Antioxidants - 1 tablet Orally Once a day Active metFORMIN HCl ER 500 MG 1 tab Orally bid for 90 day(s) Not-Taking CertaVite/Antioxidants - 1 tablet Orally Once a day for 30 Active oxyCODONE HCl 10 MG 1 tablet as needed Orally ev jimi 12 hrs PRN SEVERE PAIN MDD: 2 for 30 days Jun, Active PROCEDURES No Information RESULTS No Results REASON FOR VISIT [place] for procedure MEDICAL (GENERAL) HISTORY Type Description Date Medical History CAD, s/p AWMI post-op [place] ctomy-05/2017 very small apical thrombus, LVEF 40%-akinesis of apex, mid ant, mid anteroseptal, LV diastolic dysfx by 05/2017 TTE-Antec RST s ischemia but focal/global abnormality, LVEF 28%, high risk-[place]/12/2017 cath-no significant CAD-[place]/sp ICD 01/12/2018-[place]/02/19/19 TTE c LVEF 50-55%/no french dysfx-[facility] [...] to 6.25 BID 02/18-06/03 Hospitalization History 1D [employer] RLE cellulitis-WBC 9. 7,CRP 14 (3 at dc), -CT R tib/fib for abscess, -RLE DVT US, rxed c vanco/ceftr, dced on cefdinir 7D, -BCX2 04/10- Goals Section No Information Health Concerns No Information MEDICAL EQUIPMENT No Information MENTAL STATUS No Information FUNCTIONAL STATUS No Information ASSESSMENTS No Information PLAN OF TREATMENT Medication Medication Name Sig Start Date Stop Date oxyCODONE HCl 10 MG 1 tablet as needed Orally ev jimi 12 hrs PRN SEVERE PAIN MDD: 2 for 30 days Jun, Next Appt Details Provider Name:Mackenzie Silva, 11:00:00 AM, [address], , [place], [address], Provider Name:Theodore Christy, 2021-08-24 1 1:45:00 AM, [address] [facility], , [place], [address], Insurance Providers Payer Name Payer Address Payer Phone Insured Name Patient Relati onship to Insured Coverage Start Date Coverage End Date [facility] CLAIM ADMIN WORK COMP [id number] [id number] MACKENZIE DOLAN 2007
--- OUTSIDE RECORDS SUMMARY | 2021-08-17 00:50 | CCD ---
Author Author [facility] Organization [facility] Address Unknown Phone Unavailable Care Team Providers Care Prior Authorization Nurse Name Role Phone Warren Davila Unavailable PROBLEMS Type Condition ICD9-CM Code EBO04-DF Code Onset Dates Condition S tatus W/U Status Risk SNOMED Code Notes Problem Stage II pressure ulcer of right hip L89.212 Act qamar confirmed 787641607 Problem Major depressive disorder, single episode, unspecified F32.9 Active confirmed 94515929 Problem Anticoagulant long-term use Z79.01 Active confirmed 128389874 Problem Vitamin D deficiency, unspecified E55.9 Active con firmed 18119334 Problem Mixed hyperlipidemia E78.2 Active confirmed 375842713 Problem 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 Active confirmed 131392569 Problem Wound of right lower extremity S81.801A Active confirmed 917231442 Problem ED (erectile dysfunction) N52.9 Active confirmed 849902614 Problem ARON (obstructive sleep apnea) G47.33 Active confirm ed 06520073 Problem Stage IV pressure ulcer of sacral region L89.154 Active confirmed 306978971 Problem Stage II pressure ulcer of sacral region L89.152 Active confirmed 553875467 Problem Open wound of right foot, initial encounter S91.30 1A Active confirmed 608828229 Problem Pressure ulcer of right foot, stage 2 L89.892 Ac tive confirmed 680610920 Problem Obesity (BMI 30-39.9) E66.9 Active confirmed 142784326 Problem Prostate cancer screening Z12.5 Active confirmed 131372433 Problem Disseminated candidiasis B37.7 Active confirmed 88965208 Problem 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 Active confir med 92430219 Problem Nicotine use disorder F17.200 Active confirmed 82725284 Problem Neurogenic incontinence N31.9 Active confirmed 293974057 Problem 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 Active confirmed 413849502 Problem History of [place] (myocardial infarction) I25.2 Ac tive confirmed 532587947 Problem Lumbar spondylosis M47.816 Active confirmed 309545862 Problem Iron deficiency anemia, unspecified iron deficiency an emia type D50.9 Active confirmed 04019864 Problem Neuropathic pain M79.2 Active confirmed 247 890548 Problem NAFLD (nonalcoholic fatty liver disease) K76.0 Active confirmed 340812362 Problem Lumbar spondylolysis M43.06 Active confirmed 733712643 Problem Chronic pain syndrome G89.4 Active confirmed 709122696 Problem Hyperalgesia R20.8 Active confirmed 8633187 8 Problem Postlaminectomy syndrome of lumbosacral region M96 .1 Active confirmed 113000023 Problem CKD (chronic kidney disease) stage 3, GFR 30-59 ml/min N18.3 Active confirmed 588645929 Problem Ischemic cardiomyopathy I25.5 Active confirmed 455209221 Problem Recurrent UTI N39.0 Active confirmed 228108 001 Problem Gout M10.9 Active confirmed 61464080 Problem Diabetes mellitus type 2 with complications E11.8 Active confirmed 469815955 Problem Ataxia R27.0 Active confirmed 76383108 Problem Hypertension, essential I10 Active confirmed 68198515 Problem Stage III pressure ulcer of sacral region L89.153 Active confirmed 394029442 Problem Sacral decubitus ulcer, stage IV L89.154 Active confirmed 202079022 Problem Lumbar post-laminectomy syndrome M96.1 Active conf irmed 777367259 Problem Vitamin D deficiency E55.9 Active confirmed 96425426 Problem Acquired phimosis N47.1 Active confirmed 26 2664668 Problem Intervertebral disc disorder with radiculopathy of lumbar region M51.16 Active confirmed 471376176899158 Problem Gastroesophageal reflux disease without esophagitis K21.9 Active confirmed 567402418 Problem Phimosis N47.1 Active confirmed 790458717 Problem Peripheral vascular disease I73.9 Active confirmed 985016155 Problem Non-pressure chronic ulcer o f other part of left foot with unspecified severity L97.529 Active confirmed 762082147 Problem Osteoporotic compression fracture of spine with delayed healing M80.88XG Active confirmed 456567121 Problem Paronychia of great toe of right foot L03.031 Ac tive confirmed 064160752 Problem Stage 2 moderate COPD by GOLD classification J44.9 Active confirmed 903921322 Problem Constipation, chronic K59.09 Active confirmed 467748627 Problem Pressure ulcer of coccygeal region, stage 2 L89.15 2 Active confirmed Problem Contracture of lower leg joint M24.569 Active confi rmed 6150611 Problem Stage II pressure ulcer of right buttock L89.312 Active confirmed 738588580 Problem Community acquired pneumonia J18.9 Active confirme d 645079538 Problem Venous insufficiency of both lower extremities I87 .2 Active confirmed 672019488 Problem Apraxia R48.2 Active confirmed 41219387 Problem Macrocytosis D75.89 Active confirmed 7657790 00 ALLERGIES Allergen (clinical drug ingredient) Drug/Non Drug Allergy do cumented on EMR Reaction Allergy Type Onset Date Status wellbutrin agitation Non Drug Allergy Active zoloft Diarrhea Non Drug Allergy Active prozac depression Non Drug Allergy Active remeron nightmares Non Drug Allergy Active ENCOUNTERS from 1955 to 2021-06-21 Encounter Location Date Provider Diagnosis [facility] [address] Floor [phone] [place] [address] Jun, 2021 Warren Davila IMMUNIZATIONS Vaccine Route Administration Date Status COVID-19 dose #1 given elsewhere Unspecified IM Intramuscular [facility] 2020 Administered Influenza Pharmacy Given IM Intramuscular [...] Education Language: Question Answer Notes Languages spoken: Wallisian Anglican: Question Answer Notes Anglican 05 Rastafarian Drug and Alcohol Question Answer Notes Total [...] ho urs prn for 30 Days Active amLODIPine Besylate 2.5 MG 1 tablet Orally every moring for 90 day(s) Active Rosuvastatin Calcium 10 MG 1 tablet Orally Once a day for 30 Days Active oxyCODONE HCl 10 MG 1 tablet as needed Orally ev jimi 12 hrs prn pain MDD 2 for 30 days May, Active May Use - as directed boot for right foot Daily-DX: M19.07 1 for 30 Days Dec, Active Carvedilol 6.25 MG 1 tab Orally bid for 90 day(s) Active PARoxetine HCl 40 MG 1 tablet in the morning Orally Once a day f or 90 day(s) Active May Have - large non-skid socks for dx=G82.21 (para plegia) Daily for 90 day(s) Apr, Active Ferrous Sulfate 325 (65 Fe) MG 1 tablet Orally Once a day for 30 day( s) Active CertaVite/Antioxidants - 1 tablet Orally Once a day for 30 Active Losartan Potassium 25 mg 1 tablet Orally every morning for 90 day(s) Active Pantoprazole Sodium 40 MG 1 tablet Orally every morning for 90 day(s ) Active Fluconazole 200 MG 2 tablets Orally Daily for 90 day(s) Active CertaVite/Antioxidants - 1 tablet Orally Once a day Active oxyCODONE HCl 10 MG 1 tablet as needed Orally ev jimi 12 hrs PRN SEVERE PAIN MDD: 2 for 30 days Jun, Active metFORMIN HCl ER 500 MG 1 tab Orally bid for 90 day(s) Active Aspirin 81 MG 1 tablet Orally Once a day for 90 day(s) Active Skelaxin 800 MG 1 tablet Orally Three times a day for 90 day(s) Active MiraLax - 1 packet mixed with 8 ounces of fluid Or ally Once a day for 90 day(s) Active Rosuvastatin Calcium 10 MG 1 tablet Orally Once a day for 90 day(s) Active Hydrocerin - as directed Externally bid to lower legs from kn ees down for 30 Active Gabapentin 600 MG 1 tablet Orally three times daily for 90 day(s) Active Combivent Respimat 20-100 mcg/act 1 puff Inhalation fo ur times daily as needed for 30 Days Active Reclast 5 MG/100ML as directed Intravenous Active Gait/Transfer Belt - as directed Apr, A ctive Voltaren 1 % 4 gm Transdermal every 4-hours as needed for 30 Days Sep, Active Prevail Wet Wipes - as directed for dx=G82.21 (paraplegia) D aily for 90 day(s) Apr, Active May Use 1 brace for left lower extremi ty as directed DX:R27.0 daily contracture of lower joint for 30 days fax to [phone] Mar, Active Blood Glucose Test - as directed intradermally bid DX: E11.9 for 25 Active PROCEDURES No Information RESULTS No Results REASON FOR VISIT PA Oxycodone MEDICAL (GENERAL) HISTORY Type Description Date Medical History CAD, s/p AWMI post-op [place] ctomy-05/2017 very small apical thrombus, LVEF 40%-akinesis of apex, mid ant, mid anteroseptal, LV diastolic dysfx by 05/2017 TTE-[place]/07/2017 RST s ischemia but focal/global abnormality, LVEF 28%, high risk-[place]/12/2017 cath-no significant CAD-[place]/sp ICD 01/12/2018-[place]/02/19/19 TTE c LVEF 50-55%/no french dysfx-[facility] [...] to 6.25 BID 02/18-06/03 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 7,CRP 14 (3 at [...] 30 days Jun, Next Appt Details Provider Name:Warren Davila, 2021-06-22 10:45:00 AM, [address], , [place], [address], Provider Name:Mackeznie Silva, 11:00:00 AM, [address], , [place], [address], Provider Name:Theodore Christy, 2021-08-24 1 1:45:00 AM, [address] [facility], , [place], [address], Insurance Providers Payer Name Payer Address Payer Phone Insured Name Patient Relati onship to Insured Coverage Start Date Coverage End Date MEDICARE Part A and B [address] [facility] [id number] MACKENZIE DOLAN [facility] [address] [id number] [facility] [id number] MACKENZIE DOLAN [id number]
--- OUTSIDE RECORDS SUMMARY | 2021-08-17 00:50 | CCD ---
Author Author [facility] Organization [facility] Address Unknown Phone Unavailable Care Team Providers Care Software Designer Name Role Phone Warren Davila Unavailable PROBLEMS Type Condition ICD9-CM Code [id number] Code Onset Dates Condition S tatus W/U Status Risk SNOMED Code Notes Problem Stage II pressure ulcer of right hip L89.212 Act qamar confirmed 218824426 Problem Major depressive disorder, single episode, unspecified F32.9 Active confirmed 61053834 Problem Anticoagulant long-term use Z79.01 Active confirmed 241611803 Problem Vitamin D deficiency, unspecified E55.9 Active con firmed 89647540 Problem Mixed hyperlipidemia E78.2 Active confirmed 795759289 Problem 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 Active confirmed 394956717 Problem Wound of right lower extremity S81.801A Active confirmed 875711739 Problem ED (erectile dysfunction) N52.9 Active confirmed 263336164 Problem ARON (obstructive sleep apnea) G47.33 Active confirm ed 23804717 Problem Stage IV pressure ulcer of sacral region L89.154 Active confirmed 728675567 Problem Stage II pressure ulcer of sacral region L89.152 Active confirmed 019357949 Problem Open wound of right foot, initial encounter S91.30 1A Active confirmed 147351266 Problem Pressure ulcer of right foot, stage 2 L89.892 Ac tive confirmed 783093282 Problem Obesity (BMI 30-39.9) E66.9 Active confirmed 374493205 Problem Prostate cancer screening Z12.5 Active confirmed 631081996 Problem Disseminated candidiasis B37.7 Active confirmed 39421090 Problem 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 Active confir med 90236577 Problem Nicotine use disorder F17.200 Active confirmed 53333302 Problem Neurogenic incontinence N31.9 Active confirmed 571557326 Problem 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 Active confirmed 373035638 Problem History of [place] (myocardial infarction) I25.2 Ac tive confirmed 807949260 Problem Lumbar spondylosis M47.816 Active confirmed 330773484 Problem Iron deficiency anemia, unspecified iron deficiency an emia type D50.9 Active confirmed 96250698 Problem Neuropathic pain M79.2 Active confirmed 247 768402 Problem NAFLD (nonalcoholic fatty liver disease) K76.0 Active confirmed 344662437 Problem Lumbar spondylolysis M43.06 Active confirmed 309470090 Problem Chronic pain syndrome G89.4 Active confirmed 288748602 Problem Hyperalgesia R20.8 Active confirmed 4516025 8 Problem Postlaminectomy syndrome of lumbosacral region M96 .1 Active confirmed 044742090 Problem CKD (chronic kidney disease) stage 3, GFR 30-59 ml/min N18.3 Active confirmed 877112241 Problem Ischemic cardiomyopathy I25.5 Active confirmed 414216033 Problem Recurrent UTI N39.0 Active confirmed 363736 001 Problem Gout M10.9 Active confirmed 52980458 Problem Diabetes mellitus type 2 with complications E11.8 Active confirmed 359065569 Problem Ataxia R27.0 Active confirmed 58432665 Problem Hypertension, essential I10 Active confirmed 28091908 Problem Stage III pressure ulcer of sacral region L89.153 Active confirmed 850968688 Problem Sacral decubitus ulcer, stage IV L89.154 Active confirmed 950603643 Problem Lumbar post-laminectomy syndrome M96.1 Active conf irmed 891547847 Problem Vitamin D deficiency E55.9 Active confirmed 55772234 Problem Acquired phimosis N47.1 Active confirmed 26 6978171 Problem Intervertebral disc disorder with radiculopathy of lumbar region M51.16 Active confirmed 518564883474615 Problem Gastroesophageal reflux disease without esophagitis K21.9 Active confirmed 260293512 Problem Phimosis N47.1 Active confirmed 394507633 Problem Peripheral vascular disease I73.9 Active confirmed 277534845 Problem Non-pressure chronic ulcer o f other part of left foot with unspecified severity L97.529 Active confirmed 751001706 Problem Osteoporotic compression fracture of spine with delayed healing M80.88XG Active confirmed 506260670 Problem Paronychia of great toe of right foot L03.031 Ac tive confirmed 413212324 Problem Stage 2 moderate COPD by GOLD classification J44.9 Active confirmed 007441540 Problem Constipation, chronic K59.09 Active confirmed 648397853 Problem Pressure ulcer of coccygeal region, stage 2 L89.15 2 Active confirmed Problem Contracture of lower leg joint M24.569 Active confi rmed 1012176 Problem Stage II pressure ulcer of right buttock L89.312 Active confirmed 186060931 Problem Community acquired pneumonia J18.9 Active confirme d 709028579 Problem Venous insufficiency of both lower extremities I87 .2 Active confirmed 040961896 Problem Apraxia R48.2 Active confirmed 07354760 Problem Macrocytosis D75.89 Active confirmed 9533239 00 ALLERGIES Allergen (clinical drug ingredient) Drug/Non Drug Allergy do cumented on EMR Reaction Allergy Type Onset Date Status wellbutrin agitation Non Drug Allergy Active zoloft Diarrhea Non Drug Allergy Active prozac depression Non Drug Allergy Active remeron nightmares Non Drug Allergy Active ENCOUNTERS from 1955 to 2021-06-23 Encounter Location Date Provider Diagnosis [facility] [address] [phone] [place] [address] 08 Jun, 2021 Warren Davila Chronic prescription opiate use Z79.891 and Postlaminectomy syndrome of lumbosacral region M96.1 IMMUNIZATIONS Vaccine Route Administration Date Status Influenza Pharmacy Given Unknown Jul 10, 2018 Refused COVID-19 dose #1 given elsewhere Unspecified IM Intramuscular [facility] 2020 Administered Influenza Pharmacy Given IM Intramuscular Jun 24, 2018 Admini stered Influenza 18 yrs & older Flublok Unknown Jul 09, 2019 Others Influenza 6mo & up Fluzone Unknown Aug 06, 2019 Refus ed Influenza 6mo & up Fluzone IM Intramuscular Jul 21, 2017 Admi nistered Influenza 18 yrs & older Flublok IM Intramuscular Jul 11, 2020 Administered Influenza 6mo & up Fluzone [...] Education Language: Question Answer Notes Languages spoken: Peruvian Holiness: Question Answer Notes Holiness 05 Evangelical Drug and Alcohol Question Answer [...] effects, education provided 03/13/2021 REASON FOR REFERRAL from 1955 to 2021-06-23 Reason 66 year old male with histor y of post laminectomy pain interested in pursuing a dorsal column stimulator. Please Evaluate. Diagnosis 1 Postlaminectomy syndrome of lumbosacral region (M96.1) Referral Organization [facility] Pain Clinic Referring Provider First Name Warren Referring Provider Last Name Giovanni Referring Provider Specialty Pain Medicine Referred Provider Specialty Psychiatry Referral Priority Routine Reason 66 year old man with history of a sacral wound intersted in pursuing a dorsal column stimulator. Requesting clearance from his wound care provider. Diagnosis 1 Postlaminectomy syndrome of lumbosacral region (M96.1) Referral Organization [facility] Referring Provider First Name Warren Referring Provider Last Name Giovanni Referring Provider Specialty Pain Medicine Referred Organization [facility] Wound Care Referred Provider Mackenzie Silva Referred Address [address] [place] [address],[phone] ,[place], [place],[address] Referred Provider Specialty Wound Care Referral Priority Routine Reason 66 year old man with signifi cant cardiac history including an AICD. Requesting cardiac clearance to pursue a dorsal column stimulator. Diagnosis 1 Postlaminectomy syndrome of lumbosacral region (M96.1) Referral Organization [facility] Pain Clinic Referring Provider First Name Warren Referring Provider Last Name Giovanni Referring Provider Specialty Pain Medicine Referred Provider Saul Guadalupe Referred Provider Specialty Cardiology Referral Priority Routine VITAL SIGNS Weight 186.0 lbs Jun, Weight-kg 84.37 kg Jun, Height 69 in Jun, BMI 27.46 kg/m2 Jun, Heart Rate 62 /min Jun, Respiratory Rate 18 /min Jun, Temperature 98.0 degrees Fahrenheit Jun, Oximetry 95% Jun, Blood pressure systolic 130 mm Hg Jun, Blood pressure diastolic 63 mm Hg Jun, MEDICATIONS Medication SIG (Take, Route, Frequency, Duration) [...] lower joint for 30 days fax to [phone] Mar, Active PARoxetine HCl 40 MG 1 [...] Information RESULTS No Results REASON FOR VISIT UTOX/BACK PAIN MEDICAL (GENERAL) HISTORY Type Description Date Medical History CAD, s/p AWMI post-op [place] ctomy-05/2017 very small apical thrombus, LVEF 40%-akinesis of apex, mid ant, mid anteroseptal, LV diastolic dysfx by 05/2017 TTE-Antecol RST s ischemia but focal/global abnormality, LVEF 28%, high risk-[place]/12/2017 cath-no significant CAD-Tommie/sp ICD 01/12/2018-Tommie/02/19/19 TTE c [...] chronic pyuria Surgical History appendectomy Surgical History [place] Surgical History left elbow ulnar nerve transposition [...] to 6.25 BID 02/18-06/03 Hospitalization History 1D CUT TOBACCO BULKER RLE cellulitis-WBC 9. 7,CRP 14 (3 at dc), -CT R tib/fib for abscess, -RLE DVT US, rxed c vanco/ceftr, dced on cefdinir 7D, -BCX2 04/10- Goals Section No Information Health Concerns No Information MEDICAL EQUIPMENT No Information MENTAL STATUS No Information FUNCTIONAL STATUS No Information ASSESSMENTS Encounter Date Diagnosis Assessment Notes Treatment Notes Treatm ent Clinical Notes Jun, Chronic prescription opiate use (ICD-10 - Z79.89 1) Jun, Postlaminectomy syndrome of lumbosacral region ( ICD-10 - M96.1) Dr. Davila and I discussed DCS with the patient who wishes to proceed. We will request authorization for a CT without contrast of the thoracic and lumbar spine. We will request clearance from Dr. Guadalupe and Dr. Silva at this time and refer him for a psychological evaluation. We will follow up once the CT results are available. Radha Quintero [employer]-[facility] PLAN OF TREATMENT Medication Medication Name Sig Start Date Stop Date oxyCODONE HCl 10 MG 1 tablet as needed Orally ev jimi 12 hrs PRN SEVERE PAIN MDD: 2 for 30 days Jun, Treatment Notes Assessment Notes Clinical Notes Postlaminectomy syndrome of lumbosacral region Dr. Davila and I discussed DCS with the patient who wishes to proceed. We will request authorization for a CT without contrast of the thoracic and lumbar spine. We will request clearance from Dr. Guadalupe and Dr. Silva at this time and refer him for a psychological evaluation. We will follow up once the CT results are available.Radha Quintero [employer]C Treatment Notes Test Name Order Date Urine Test Group 2021-06-[address] [facility] [address] Spine, lumbar w/o contrast 2021-06-[address] [facility] [address] Spine,thoracic w/o contrast 2021-06-22 Referrals Referral Date Details 66 year old male with histor y of post laminectomy pain interested in pursuing a dorsal column stimulator. Please Evaluate. 66 year old man with history of a sacral wound intersted in pursuing a dorsal column stimulator. Requesting clearance from his wound care provider., Mackenzie Silva, [address], [place], [address], 66 year old man with signifi cant cardiac history including an AICD. Requesting cardiac clearance to pursue a dorsal column stimulator., Saul Guadalupe Next Appt Details Once CT results are available Reason:Req uest auth for lumbar and thoracic CT Provider Name:Mackenzie Silva, 11:00:00 AM, [address], , [place], [address], Provider Name:Theodore Christy, 2021-08-24 1 1:45:00 AM, [address], , [place], [address], Follow Up:Once CT results are availableRequest auth for lumbar and thoracic CT Insurance Providers Payer Name Payer Address Payer Phone Insured Name Patient Relati onship to Insured Coverage Start Date Coverage End Date [employer] CLAIM AD[employer] [id number] [address] MACKENZIE DOLAN 2008
--- OUTSIDE RECORDS SUMMARY | 2021-08-17 00:50 | CCD ---
Author Author [facility] Organization [facility] Address Unknown Phone Unavailable Care Team Providers Care Application Development Director Name Role Phone Theodore Christy Unavailable PROBLEMS Type Condition ICD9-CM Code [id number] Code Onset Dates Condition S tatus W/U Status Risk SNOMED Code Notes Problem Stage II pressure ulcer of right hip L89.212 Act qamar confirmed 541107207 Problem Major depressive disorder, single episode, unspecified F32.9 Active confirmed 41204588 Problem Anticoagulant long-term use Z79.01 Active confirmed 566258738 Problem Vitamin D deficiency, unspecified E55.9 Active con firmed 73544852 Problem Mixed hyperlipidemia E78.2 Active confirmed 620997827 Problem 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 Active confirmed 144483978 Problem Wound of right lower extremity S81.801A Active confirmed 325013027 Problem ED (erectile dysfunction) N52.9 Active confirmed 497441080 Problem ARON (obstructive sleep apnea) G47.33 Active confirm ed 22301612 Problem Stage IV pressure ulcer of sacral region L89.154 Active confirmed 268453090 Problem Stage II pressure ulcer of sacral region L89.152 Active confirmed 958250493 Problem Open wound of right foot, initial encounter S91.30 1A Active confirmed 326165455 Problem Pressure ulcer of right foot, stage 2 L89.892 Ac tive confirmed 874928483 Problem Obesity (BMI 30-39.9) E66.9 Active confirmed 211094413 Problem Prostate cancer screening Z12.5 Active confirmed 809657288 Problem Disseminated candidiasis B37.7 Active confirmed 09280757 Problem 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 Active confir med 78668790 Problem Nicotine use disorder F17.200 Active confirmed 23255475 Problem Neurogenic incontinence N31.9 Active confirmed 183575547 Problem 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 Active confirmed 172630443 Problem History of [place] (myocardial infarction) I25.2 Ac tive confirmed 567066086 Problem Lumbar spondylosis M47.816 Active confirmed 147770188 Problem Iron deficiency anemia, unspecified iron deficiency an emia type D50.9 Active confirmed 63125696 Problem Neuropathic pain M79.2 Active confirmed 247 568805 Problem NAFLD (nonalcoholic fatty liver disease) K76.0 Active confirmed 426233025 Problem Lumbar spondylolysis M43.06 Active confirmed 665949769 Problem Chronic pain syndrome G89.4 Active confirmed 512192061 Problem Hyperalgesia R20.8 Active confirmed 9212235 8 Problem Postlaminectomy syndrome of lumbosacral region M96 .1 Active confirmed 021632420 Problem CKD (chronic kidney disease) stage 3, GFR 30-59 ml/min N18.3 Active confirmed 602435920 Problem Ischemic cardiomyopathy I25.5 Active confirmed 543016632 Problem Recurrent UTI N39.0 Active confirmed 301993 001 Problem Gout M10.9 Active confirmed 67191349 Problem Diabetes mellitus type 2 with complications E11.8 Active confirmed 074155349 Problem Ataxia R27.0 Active confirmed 33586014 Problem Hypertension, essential I10 Active confirmed 60570794 Problem Stage III pressure ulcer of sacral region L89.153 Active confirmed 416503806 Problem Sacral decubitus ulcer, stage IV L89.154 Active confirmed 643566501 Problem Lumbar post-laminectomy syndrome M96.1 Active conf irmed 958865148 Problem Vitamin D deficiency E55.9 Active confirmed 10436074 Problem Acquired phimosis N47.1 Active confirmed 26 1920803 Problem Intervertebral disc disorder with radiculopathy of lumbar region M51.16 Active confirmed 949254745138568 Problem Gastroesophageal reflux disease without esophagitis K21.9 Active confirmed 694648325 Problem Phimosis N47.1 Active confirmed 842968055 Problem Peripheral vascular disease I73.9 Active confirmed 093448479 Problem Non-pressure chronic ulcer o f other part of left foot with unspecified severity L97.529 Active confirmed 497124431 Problem Osteoporotic compression fracture of spine with delayed healing M80.88XG Active confirmed 245717822 Problem Paronychia of great toe of right foot L03.031 Ac tive confirmed 991843384 Problem Stage 2 moderate COPD by GOLD classification J44.9 Active confirmed 541226025 Problem Constipation, chronic K59.09 Active confirmed 915790682 Problem Pressure ulcer of coccygeal region, stage 2 L89.15 2 Active confirmed Problem Contracture of lower leg joint M24.569 Active confi rmed 1094909 Problem Stage II pressure ulcer of right buttock L89.312 Active confirmed 640993685 Problem Community acquired pneumonia J18.9 Active confirme d 446149129 Problem Venous insufficiency of both lower extremities I87 .2 Active confirmed 847092361 Problem Apraxia R48.2 Active confirmed 65735501 Problem Macrocytosis D75.89 Active confirmed 7297939 00 ALLERGIES Allergen (clinical drug ingredient) Drug/Non Drug Allergy do cumented on EMR Reaction Allergy Type Onset Date Status wellbutrin agitation Non Drug Allergy Active zoloft Diarrhea Non Drug Allergy Active prozac depression Non Drug Allergy Active remeron nightmares Non Drug Allergy Active ENCOUNTERS from 1955 to 2021-06-19 Encounter Location Date Provider Diagnosis [facility] [address] [phone] [place] [address] Jun, 2021 Theodore Christy IMMUNIZATIONS Vaccine Route Administration Date Status Influenza [...] dose #1 given elsewhere Unspecified IM Intramuscular [facility] 2020 Administered Influenza 6mo & up [...] Education Language: Question Answer Notes Languages spoken: Greenlandic Mosque: Question Answer Notes Mosque 05 Anabaptism Drug and Alcohol Question Answer Notes Total [...] lower joint for 30 days fax to [phone] Mar, Active Blood Glucose Test - as directed intradermally bid DX: E11.9 for 25 Active PROCEDURES No Information RESULTS No Results REASON FOR VISIT orders MEDICAL (GENERAL) HISTORY Type Description Date Medical History CAD, s/p AWMI post-op [place] ctomy-05/2017 very small apical thrombus, LVEF 40%-akinesis of apex, mid ant, mid anteroseptal, LV diastolic dysfx by 05/2017 TTE-Antecol/07/2017 RST s ischemia but focal/global abnormality, LVEF 28%, high risk-[place]/12/2017 cath-no significant CAD-Warren/sp ICD 01/12/2018-Tommie/02/19/19 TTE c LVEF 50-55%/no french [...] to 6.25 BID 02/18-06/03 Hospitalization History 1D BRAKE TESTER RLE cellulitis-WBC 9. 7,CRP 14 (3 at [...] Provider Name:Warren Davila, 2021-06-22 10:45:00 AM, [address], , [place], [address], Provider Name:Mackenzie Silva, 11:00:00 AM, [address], , [place], [address], Provider Name:Theodore Christy, 2021-08-24 1 1:45:00 AM, [address], , [place], [address], Insurance Providers Payer Name Payer Address Payer Phone Insured Name Patient Relati onship to Insured Coverage Start Date Coverage End Date [facility] [address] [id number] [facility] [address] [id number] MACKENZIE DOLAN [id number] MEDICARE Part A and B [address] [place] [phone] MACKENZIE DOLAN self
--- OUTSIDE RECORDS SUMMARY | 2021-08-17 00:50 | CCD ---
Author Author [facility] Organization [facility] Address Unknown Phone Unavailable Care Team Providers Care Soccer Ball Assembler Name Role Phone Warren Davila Unavailable PROBLEMS Type Condition ICD9-CM Code QEW09-JG Code Onset Dates Condition S tatus W/U Status Risk SNOMED Code Notes Problem Anticoagulant long-term use Z79.01 Active confirmed 193538252 Problem Mixed hyperlipidemia E78.2 Active confirmed 880037981 Problem Major depressive disorder, single episode, unspecified F32.9 Active confirmed 63925211 Problem History of [place] (myocardial infarction) I25.2 Ac tive confirmed 059927916 Problem Vitamin D deficiency, unspecified E55.9 Active con firmed 41323993 Problem Non-pressure chronic ulcer o f other part of left foot with unspecified severity L97.529 Active confirmed 723428494 Problem Stage II pressure ulcer of sacral region L89.152 Active confirmed 750881769 Problem 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 Active confirmed 597131422 Problem Wound of right lower extremity S81.801A Active confirmed 568617548 Problem Pressure ulcer of right foot, stage 2 L89.892 Ac tive confirmed 660234033 Problem Stage IV pressure ulcer of sacral region L89.154 Active confirmed 833178465 Problem Stage II pressure ulcer of right hip L89.212 Act qamar confirmed 033659702 Problem Open wound of right foot, initial encounter S91.30 1A Active confirmed 519336610 Problem Disseminated candidiasis B37.7 Active confirmed 77217002 Problem 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 Active confir med 51231410 Problem Neurogenic incontinence N31.9 Active confirmed 730087322 Problem Iron deficiency anemia, unspecified iron deficiency an emia type D50.9 Active confirmed 85196928 Problem Recurrent UTI N39.0 Active confirmed 155208 001 Problem Nicotine use disorder F17.200 Active confirmed 78235158 Problem Neuropathic pain M79.2 Active confirmed 247 684965 Problem 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 Active confirmed 585235839 Problem Obesity (BMI 30-39.9) E66.9 Active confirmed 710577997 Problem Lumbar spondylosis M47.816 Active confirmed 454089551 Problem Prostate cancer screening Z12.5 Active confirmed 024408059 Problem Chronic pain syndrome G89.4 Active confirmed 670279975 Problem Postlaminectomy syndrome of lumbosacral region M96 .1 Active confirmed 998264581 Problem Lumbar spondylolysis M43.06 Active confirmed 722553931 Problem Ischemic cardiomyopathy I25.5 Active confirmed 570010006 Problem Hyperalgesia R20.8 Active confirmed 0378993 8 Problem Contracture of lower leg joint M24.569 Active confi rmed 1760082 Problem CKD (chronic kidney disease) stage 3, GFR 30-59 ml/min N18.3 Active confirmed 810259831 Problem Ataxia R27.0 Active confirmed 45298092 Problem Gout M10.9 Active confirmed 27056029 Problem NAFLD (nonalcoholic fatty liver disease) K76.0 Active confirmed 790661096 Problem Diabetes mellitus type 2 with complications E11.8 Active confirmed 858427909 Problem Lumbar post-laminectomy syndrome M96.1 Active conf irmed 349102994 Problem Hypertension, essential I10 Active confirmed 51087719 Problem Acquired phimosis N47.1 Active confirmed 26 3358284 Problem Sacral decubitus ulcer, stage IV L89.154 Active confirmed 686013337 Problem Phimosis N47.1 Active confirmed 032249777 Problem Peripheral vascular disease I73.9 Active confirmed 360144041 Problem Vitamin D deficiency E55.9 Active confirmed 38860558 Problem ED (erectile dysfunction) N52.9 Active confirmed 127910869 Problem ARON (obstructive sleep apnea) G47.33 Active confirm ed 35841187 Problem Intervertebral disc disorder with radiculopathy of lumbar region M51.16 Active confirmed 808339373898758 Problem Gastroesophageal reflux disease without esophagitis K21.9 Active confirmed 569788609 Problem Osteoporotic compression fracture of spine with delayed healing M80.88XG Active confirmed 893398498 Problem Paronychia of great toe of right foot L03.031 Ac tive confirmed 890179904 Problem Community acquired pneumonia J18.9 Active confirme d 758059280 Problem Pressure ulcer of coccygeal region, stage 2 L89.15 2 Active confirmed Problem Stage II pressure ulcer of right buttock L89.312 Active confirmed 244018064 Problem Encounter for immunization Z23 Active confirmed 392125734 Problem Constipation, chronic K59.09 Active confirmed 836735765 Problem Stage III pressure ulcer of sacral region L89.153 Active confirmed 224032802 Problem Venous insufficiency of both lower extremities I87 .2 Active confirmed 654762912 Problem Apraxia R48.2 Active confirmed 07201563 Problem Macrocytosis D75.89 Active confirmed 5401807 00 Problem Stage 2 moderate COPD by GOLD classification J44.9 Active confirmed 649489020 ALLERGIES Allergen (clinical drug ingredient) Drug/Non Drug Allergy do cumented on EMR Reaction Allergy Type Onset Date Status Wellbutrin agitation Drug Allergy Active fluoxetine PROzac(NDC Code:[address]-32) depression Drug Allergy Active sertraline Zoloft(NDC Code:[address]-74) Diarrhea Drug Allergy Active mirtazapine Remeron(NDC Code:[address]-74) nightmares Drug Allergy Active ENCOUNTERS from 1955 to 2021-07-05 Encounter Location Date Provider Diagnosis [facility] [address] [phone] [place] [address] Jun, Warren Davila IMMUNIZATIONS Vaccine Route Administration [...] dose #1 given elsewhere Unspecified IM Intramuscular [facility] 2020 Administered Influenza 6mo & up [...] Education Language: Question Answer Notes Languages spoken: Ugandan Hoahaoism: Question Answer Notes Hoahaoism 05 Sabianism Drug and Alcohol Question Answer Notes Total [...] lower joint for 30 days fax to [phone] Mar, Active Fluconazole 200 MG 2 tablets [...] Information RESULTS No Results REASON FOR VISIT REFERRAL MEDICAL (GENERAL) HISTORY Type Description Date Medical History CAD, s/p AWMI post-op [place] ctomy-05/2017 very small apical thrombus, LVEF 40%-akinesis of apex, mid ant, mid anteroseptal, LV diastolic dysfx by 05/2017 TTE-Antecol/07/2017 RST s ischemia but focal/global abnormality, LVEF 28%, high risk-Jorge Aka/12/2017 cath-no significant CAD-[place]/sp ICD 01/12/2018-[place]/02/19/19 TTE c [...] to 6.25 BID 02/18-06/03 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 7,CRP 14 (3 at [...] Appt Details Provider Name:Mackenzie Silva, 11:00:00 AM, [address], , [place], [address], Provider Name:Dennise Khanna, 2021- 11-19 10:30:00 AM, [address], , [place], [address], Provider Name:Theodore Christy, 2021-08-24 1 1:45:00 AM, [address] [facility], , [place], [address], Insurance Providers Payer Name Payer Address Payer Phone Insured Name Patient Relati onship to Insured Coverage Start Date Coverage End Date MEDICARE Part A and B [address] [facility] [address] [address]ENZIE DOLAN [facility] [address] [id number] [facility] [phone] MACKENZIE DOLAN [id number]
--- OUTSIDE RECORDS SUMMARY | 2021-08-17 00:50 | CCD ---
Author Author [facility] Organization [facility] Address Unknown Phone Unavailable Care Team Providers Care District Service Manager Name Role Phone Valerie Louis Unavailable PROBLEMS Type Condition ICD9-CM Code [id number] Code Onset Dates Condition S tatus W/U Status Risk SNOMED Code Notes Problem Anticoagulant long-term use Z79.01 Active confirmed 862594766 Problem Mixed hyperlipidemia E78.2 Active confirmed 299273903 Problem Major depressive disorder, single episode, unspecified F32.9 Active confirmed 74597304 Problem History of [place] (myocardial infarction) I25.2 Ac tive confirmed 283762839 Problem Vitamin D deficiency, unspecified E55.9 Active con firmed 77844410 Problem Non-pressure chronic ulcer o f other part of left foot with unspecified severity L97.529 Active confirmed 416433438 Problem Stage II pressure ulcer of sacral region L89.152 Active confirmed 076076790 Problem 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 Active confirmed 545163148 Problem Wound of right lower extremity S81.801A Active confirmed 292665272 Problem Pressure ulcer of right foot, stage 2 L89.892 Ac tive confirmed 693161418 Problem Stage IV pressure ulcer of sacral region L89.154 Active confirmed 760854197 Problem Stage II pressure ulcer of right hip L89.212 Act qamar confirmed 706781572 Problem Open wound of right foot, initial encounter S91.30 1A Active confirmed 210335799 Problem Disseminated candidiasis B37.7 Active confirmed 03740778 Problem 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 Active confir med 58997487 Problem Neurogenic incontinence N31.9 Active confirmed 357797289 Problem Iron deficiency anemia, unspecified iron deficiency an emia type D50.9 Active confirmed 86636826 Problem Recurrent UTI N39.0 Active confirmed 875840 001 Problem Nicotine use disorder F17.200 Active confirmed 34027447 Problem Neuropathic pain M79.2 Active confirmed 247 405704 Problem 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 Active confirmed 999684342 Problem Obesity (BMI 30-39.9) E66.9 Active confirmed 586329741 Problem Lumbar spondylosis M47.816 Active confirmed 967174364 Problem Prostate cancer screening Z12.5 Active confirmed 482414479 Problem Chronic pain syndrome G89.4 Active confirmed 042862903 Problem Postlaminectomy syndrome of lumbosacral region M96 .1 Active confirmed 637113611 Problem Lumbar spondylolysis M43.06 Active confirmed 248579224 Problem Ischemic cardiomyopathy I25.5 Active confirmed 571193131 Problem Hyperalgesia R20.8 Active confirmed 8804927 8 Problem Contracture of lower leg joint M24.569 Active confi rmed 5020579 Problem CKD (chronic kidney disease) stage 3, GFR 30-59 ml/min N18.3 Active confirmed 729090792 Problem Ataxia R27.0 Active confirmed 23531280 Problem Gout M10.9 Active confirmed 27083533 Problem NAFLD (nonalcoholic fatty liver disease) K76.0 Active confirmed 524378148 Problem Diabetes mellitus type 2 with complications E11.8 Active confirmed 850814315 Problem Lumbar post-laminectomy syndrome M96.1 Active conf irmed 101995835 Problem Hypertension, essential I10 Active confirmed 69534558 Problem Acquired phimosis N47.1 Active confirmed 26 4686944 Problem Sacral decubitus ulcer, stage IV L89.154 Active confirmed 692439247 Problem Phimosis N47.1 Active confirmed 967237102 Problem Peripheral vascular disease I73.9 Active confirmed 763705609 Problem Vitamin D deficiency E55.9 Active confirmed 59379796 Problem ED (erectile dysfunction) N52.9 Active confirmed 937753841 Problem ARON (obstructive sleep apnea) G47.33 Active confirm ed 08227007 Problem Intervertebral disc disorder with radiculopathy of lumbar region M51.16 Active confirmed 677650515296460 Problem Gastroesophageal reflux disease without esophagitis K21.9 Active confirmed 565329995 Problem Osteoporotic compression fracture of spine with delayed healing M80.88XG Active confirmed 564896131 Problem Paronychia of great toe of right foot L03.031 Ac tive confirmed 240292103 Problem Community acquired pneumonia J18.9 Active confirme d 042863383 Problem Pressure ulcer of coccygeal region, stage 2 L89.15 2 Active confirmed Problem Stage II pressure ulcer of right buttock L89.312 Active confirmed 132833767 Problem Encounter for immunization Z23 Active confirmed 324617910 Problem Constipation, chronic K59.09 Active confirmed 269617959 Problem Stage III pressure ulcer of sacral region L89.153 Active confirmed 306198802 Problem Venous insufficiency of both lower extremities I87 .2 Active confirmed 648927487 Problem Apraxia R48.2 Active confirmed 77255289 Problem Macrocytosis D75.89 Active confirmed 7479723 00 Problem Stage 2 moderate COPD by GOLD classification J44.9 Active confirmed 981466247 ALLERGIES Allergen (clinical drug ingredient) Drug/Non Drug Allergy do cumented on EMR Reaction Allergy Type Onset Date Status Wellbutrin agitation Drug Allergy Active fluoxetine PROzac(NDC Code:[address]-93) depression Drug Allergy Active sertraline Zoloft(NDC Code:[address]-70) Diarrhea Drug Allergy Active mirtazapine Remeron(NDC Code:[address]-54) nightmares Drug Allergy Active ENCOUNTERS from 1955 to 2021-07-10 Encounter Location Date Provider Diagnosis [address] [phone] [place] [address] Jun, Valerie Louis Acute cystitis without hemat uria N30.00 and Encounter for immunization Z23 IMMUNIZATIONS Vaccine Route Administration Date Status Influenza 18 yrs & older Flublok Unknown Jul 09, 2019 Others Influenza Pharmacy Given Unknown Jul 10, 2018 Refused COVID-19 dose #1 given elsewhere Unspecified IM Intramuscular [facility] 2020 Administered Influenza Pharmacy Given IM Intramuscular Jun 24, 2018 Admini stered Influenza 6mo & up Fluzone Unknown Aug [...] Education Language: Question Answer Notes Languages spoken: Czech Sabianism: Question Answer Notes Sabianism 05 [facility] Drug and Alcohol Question Answer Notes Total [...] No Information VITAL SIGNS Weight 188 lbs Jun, Weight-kg 85.28 kg Jun, Height 69 in Jun, BMI 27.76 kg/m2 Jun, Heart Rate 76 /min Jun, Respiratory Rate 18 /min Jun, Temperature 96.4 degrees Fahrenheit Jun, Oximetry 96 Jun, Blood pressure systolic 118 mm Hg Jun, Blood pressure diastolic 78 mm Hg Jun, MEDICATIONS Medication SIG (Take, [...] lower joint for 30 days fax to [phone] Mar, Active Rosuvastatin Calcium 10 MG 1 [...] Intravenous YEARLY Active PROCEDURES from 1955 to 2021-07-10 Procedure Date Ordered Result Body Site Imm: Flublok Quadrivalent 18 years & older 0.5mL IM Influenza 20 05-07-20 N/A RESULTS Component Value Reference Range Urinalysis, no Micro Reviewed date:07/04/2021 17:54:56 Interpretation: Performing Lab:[facility] [place] [address] Spec gravity 1.020 1.002 - 1.035 pH 5 5.0 - 9.0 Leukocyte + Negative - Nitrate negative Negative - Protein ++ Negative - mg/dl Glucose 50 Negative - mg/dl Ketones negative Negative - mg/dl Urobili Bilirubin + Negative - Blood about 50 Negative - Internal QC Acceptable (Y/N) yes UA URINALYSIS Reviewed date:07/04/2021 18:28:51 Interpretation: Performing Lab:[facility] [address] [facility] [id number] , ,[place] [address] URINE CULTURE Reviewed date:07/09/2021 17:45:27 Interpretation: Performing Lab:[facility] [address] [facility] [id number] , ,[facility] REASON FOR VISIT UTI MEDICAL (GENERAL) HISTORY Type Description Date Medical History CAD, s/p AWMI post-op [place] ctomy-05/2017 very small apical thrombus, LVEF 40%-akinesis of apex, mid ant, mid anteroseptal, LV diastolic dysfx by 05/2017 TTE-Antecol/07/2017 RST s ischemia but focal/global abnormality, LVEF 28%, high risk-Jorge Aka/12/2017 cath-no significant CAD-[place]/sp ICD 01/12/2018-[place]/02/19/19 TTE c LVEF 50-55%/no french dysfx-[facility] [...] to 6.25 BID 02/18-06/03 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 7,CRP 14 (3 at dc), -CT R tib/fib for abscess, -RLE DVT US, rxed c vanco/ceftr, dced on cefdinir 7D, -BCX2 04/10- Goals Section No Information Health Concerns No Information MEDICAL EQUIPMENT No Information MENTAL STATUS No Information FUNCTIONAL STATUS No Information ASSESSMENTS Encounter Date Diagnosis Assessment Notes Treatment Notes Treatm ent Clinical Notes Jun, Acute cystitis without hematuria (ICD-10 - N30.0 0) Favor UTI 06/2021 Urine C&S K. Pneumoniae sens. to macrobid(resist. to amipicillin) Jun, Encounter for immunization (ICD-10 - Z23) Jun, Other 15" chart revie w orders, plan, h&P PLAN OF TREATMENT Treatment Notes Assessment Notes Clinical Notes Acute cystitis without hematuria Favor U TI06/2021 Urine C&S K. Pneumoniae sens. to macrobid(resist. to amipicillin) Next Appt Details c RET Reason: Provider Name:Dennise Khanna, 08-03 10:30:00 AM, [address], , [place], [address], Provider Name:Theodore Christy, 2021-08-24 1 1:45:00 AM, [address] [facility], , [place], [address], Insurance Providers Payer Name Payer Address Payer Phone Insured Name Patient Relati onship to Insured Coverage Start Date Coverage End Date MEDICARE Part A and B [address] [facility] [phone] MACKENZIE DOLAN [facility] [address] [address] [facility] [address] [phone] MACKENZIE DOLAN [id number]
--- OUTSIDE RECORDS SUMMARY | 2021-08-17 00:50 | CCD ---
Author Author [facility] Organization [facility] Address Unknown Phone Unavailable Care Team Providers Care Door Serviceman Name Role Phone Mackenzie Silva Unavailable PROBLEMS Type Condition ICD9-CM Code CTG36-HO Code Onset Dates Condition S tatus W/U Status Risk SNOMED Code Notes Problem Anticoagulant long-term use Z79.01 Active confirmed 764322877 Problem Mixed hyperlipidemia E78.2 Active confirmed 039909709 Problem Major depressive disorder, single episode, unspecified F32.9 Active confirmed 39589902 Problem History of [place] (myocardial infarction) I25.2 Ac tive confirmed 023594406 Problem Vitamin D deficiency, unspecified E55.9 Active con firmed 71228301 Problem Non-pressure chronic ulcer o f other part of left foot with unspecified severity L97.529 Active confirmed 265528285 Problem Stage II pressure ulcer of sacral region L89.152 Active confirmed 539939925 Problem 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 Active confirmed 052859502 Problem Wound of right lower extremity S81.801A Active confirmed 827520957 Problem Pressure ulcer of right foot, stage 2 L89.892 Ac tive confirmed 593109425 Problem Stage IV pressure ulcer of sacral region L89.154 Active confirmed 341489542 Problem Stage II pressure ulcer of right hip L89.212 Act qamar confirmed 341344217 Problem Open wound of right foot, initial encounter S91.30 1A Active confirmed 641657240 Problem Disseminated candidiasis B37.7 Active confirmed 80337565 Problem 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 Active confir med 22227127 Problem Neurogenic incontinence N31.9 Active confirmed 325887076 Problem Iron deficiency anemia, unspecified iron deficiency an emia type D50.9 Active confirmed 58430320 Problem Recurrent UTI N39.0 Active confirmed 314714 001 Problem Nicotine use disorder F17.200 Active confirmed 78618336 Problem Neuropathic pain M79.2 Active confirmed 247 525382 Problem 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 Active confirmed 141940168 Problem Obesity (BMI 30-39.9) E66.9 Active confirmed 626205756 Problem Lumbar spondylosis M47.816 Active confirmed 319645828 Problem Prostate cancer screening Z12.5 Active confirmed 216659782 Problem Chronic pain syndrome G89.4 Active confirmed 022605231 Problem Postlaminectomy syndrome of lumbosacral region M96 .1 Active confirmed 964027224 Problem Lumbar spondylolysis M43.06 Active confirmed 436488087 Problem Ischemic cardiomyopathy I25.5 Active confirmed 081129492 Problem Hyperalgesia R20.8 Active confirmed 3832170 8 Problem Contracture of lower leg joint M24.569 Active confi rmed 9045382 Problem CKD (chronic kidney disease) stage 3, GFR 30-59 ml/min N18.3 Active confirmed 184636511 Problem Ataxia R27.0 Active confirmed 28031849 Problem Gout M10.9 Active confirmed 00438108 Problem NAFLD (nonalcoholic fatty liver disease) K76.0 Active confirmed 909786141 Problem Diabetes mellitus type 2 with complications E11.8 Active confirmed 243093123 Problem Lumbar post-laminectomy syndrome M96.1 Active conf irmed 842638013 Problem Hypertension, essential I10 Active confirmed 56637648 Problem Acquired phimosis N47.1 Active confirmed 26 1692282 Problem Sacral decubitus ulcer, stage IV L89.154 Active confirmed 074231942 Problem Phimosis N47.1 Active confirmed 708537406 Problem Peripheral vascular disease I73.9 Active confirmed 781060017 Problem Vitamin D deficiency E55.9 Active confirmed 61151570 Problem ED (erectile dysfunction) N52.9 Active confirmed 074846856 Problem ARON (obstructive sleep apnea) G47.33 Active confirm ed 02220603 Problem Intervertebral disc disorder with radiculopathy of lumbar region M51.16 Active confirmed 623808706563304 Problem Gastroesophageal reflux disease without esophagitis K21.9 Active confirmed 599093801 Problem Osteoporotic compression fracture of spine with delayed healing M80.88XG Active confirmed 511951147 Problem Paronychia of great toe of right foot L03.031 Ac tive confirmed 001875879 Problem Community acquired pneumonia J18.9 Active confirme d 757388524 Problem Pressure ulcer of coccygeal region, stage 2 L89.15 2 Active confirmed Problem Stage II pressure ulcer of right buttock L89.312 Active confirmed 183191580 Problem Encounter for immunization Z23 Active confirmed 193433886 Problem Constipation, chronic K59.09 Active confirmed 971040501 Problem Stage III pressure ulcer of sacral region L89.153 Active confirmed 912472892 Problem Venous insufficiency of both lower extremities I87 .2 Active confirmed 935777233 Problem Apraxia R48.2 Active confirmed 72723542 Problem Macrocytosis D75.89 Active confirmed 7426469 00 Problem Stage 2 moderate COPD by GOLD classification J44.9 Active confirmed 641914788 ALLERGIES Allergen (clinical drug ingredient) Drug/Non Drug Allergy do cumented on EMR Reaction Allergy Type Onset Date Status Wellbutrin agitation Drug Allergy Active fluoxetine PROzac(NDC Code:[address]-53) depression Drug Allergy Active sertraline Zoloft(NDC Code:[address]-01) Diarrhea Drug Allergy Active mirtazapine Remeron(NDC Code:[address]-77) nightmares Drug Allergy Active ENCOUNTERS from 1955 to 2021-07-19 Encounter Location Date Provider Diagnosis [facility] [address] [facility] [phone] [place] [address] Jul, Mackenzie Silva IMMUNIZATIONS Vaccine Route Administration [...] dose #1 given elsewhere Unspecified IM Intramuscular [facility] 2020 Administered Influenza 6mo & up [...] Education Language: Question Answer Notes Languages spoken: Brazilian Oriental Orthodox: Question Answer Notes Oriental Orthodox 05 Buddhist Drug and Alcohol Question Answer Notes Total [...] lower joint for 30 days fax to [phone] Mar, Active Rosuvastatin Calcium 10 MG 1 [...] Information RESULTS No Results REASON FOR VISIT stimulator MEDICAL (GENERAL) HISTORY Type Description Date Medical History CAD, s/p AWMI post-op [place] ctomy-05/2017 very small apical thrombus, LVEF 40%-akinesis of apex, mid ant, mid anteroseptal, LV diastolic dysfx by 05/2017 TTE-Antec/07/2017 RST s ischemia but focal/global abnormality, LVEF 28%, high risk-Jorge Aka/12/2017 cath-no significant CAD-[place]/sp ICD 01/12/2018-[place]/02/19/19 TTE c LVEF 50-55%/no french dysfx-[facility] [...] to 6.25 BID 02/18-06/03 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 7,CRP 14 (3 at dc), -CT R tib/fib for abscess, -RLE DVT US, rxed c vanco/ceftr, dced on cefdinir 7D, -BCX2 04/10- Goals Section No Information Health Concerns No Information MEDICAL EQUIPMENT No Information MENTAL STATUS No Information FUNCTIONAL STATUS No Information ASSESSMENTS No Information PLAN OF TREATMENT Next Appt Details Provider Name:Dennise Khanna, 08-03 10:30:00 AM, [address] [facility], , [place], [address], Provider Name:Theodore Christy, 2021-08-24 1 1:45:00 AM, [address] [facility], , [place], [address], Insurance Providers Payer Name Payer Address Payer Phone Insured Name Patient Relati onship to Insured Coverage Start Date Coverage End Date [facility] [address] [address] [facility] [phone] MACKENZIE DOLAN [id number] MEDICARE Part A and B [address] [place] [phone] MACKENZIE DOLAN self
--- OUTSIDE RECORDS SUMMARY | 2021-08-17 00:50 | CCD ---
Author Author [facility] Organization [facility] Address Unknown Phone Unavailable Care Team Providers Care Nipple Threader Name Role Phone Warren Davila Unavailable PROBLEMS Type Condition ICD9-CM Code IAI47-GR Code Onset Dates Condition S tatus W/U Status Risk SNOMED Code Notes Problem Anticoagulant long-term use Z79.01 Active confirmed 251011278 Problem Mixed hyperlipidemia E78.2 Active confirmed 571336414 Problem Major depressive disorder, single episode, unspecified F32.9 Active confirmed 40088369 Problem History of NM (myocardial infarction) I25.2 Ac tive confirmed 956358945 Problem Vitamin D deficiency, unspecified E55.9 Active con firmed 62781880 Problem Non-pressure chronic ulcer o f other part of left foot with unspecified severity L97.529 Active confirmed 668087045 Problem Stage II pressure ulcer of sacral region L89.152 Active confirmed 741754138 Problem 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 Active confirmed 897376054 Problem Wound of right lower extremity S81.801A Active confirmed 053136926 Problem Pressure ulcer of right foot, stage 2 L89.892 Ac tive confirmed 056816564 Problem Stage IV pressure ulcer of sacral region L89.154 Active confirmed 191795323 Problem Stage II pressure ulcer of right hip L89.212 Act qamar confirmed 106588509 Problem Open wound of right foot, initial encounter S91.30 1A Active confirmed 259602553 Problem Disseminated candidiasis B37.7 Active confirmed 46492062 Problem 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 Active confir med 06168309 Problem Neurogenic incontinence N31.9 Active confirmed 385614840 Problem Iron deficiency anemia, unspecified iron deficiency an emia type D50.9 Active confirmed 26483492 Problem Recurrent UTI N39.0 Active confirmed 912184 001 Problem Nicotine use disorder F17.200 Active confirmed 04489942 Problem Neuropathic pain M79.2 Active confirmed 247 875742 Problem 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 Active confirmed 942152832 Problem Obesity (BMI 30-39.9) E66.9 Active confirmed 590829642 Problem Lumbar spondylosis M47.816 Active confirmed 355789891 Problem Prostate cancer screening Z12.5 Active confirmed 532404782 Problem Chronic pain syndrome G89.4 Active confirmed 048244494 Problem Postlaminectomy syndrome of lumbosacral region M96 .1 Active confirmed 256545467 Problem Lumbar spondylolysis M43.06 Active confirmed 316718894 Problem Ischemic cardiomyopathy I25.5 Active confirmed 160471052 Problem Hyperalgesia R20.8 Active confirmed 0266388 8 Problem Contracture of lower leg joint M24.569 Active confi rmed 0278119 Problem CKD (chronic kidney disease) stage 3, GFR 30-59 ml/min N18.3 Active confirmed 866681634 Problem Ataxia R27.0 Active confirmed 38260879 Problem Gout M10.9 Active confirmed 36200134 Problem NAFLD (nonalcoholic fatty liver disease) K76.0 Active confirmed 599197006 Problem Diabetes mellitus type 2 with complications E11.8 Active confirmed 541001777 Problem Lumbar post-laminectomy syndrome M96.1 Active conf irmed 683234862 Problem Hypertension, essential I10 Active confirmed 63828915 Problem Acquired phimosis N47.1 Active confirmed 26 8841423 Problem Sacral decubitus ulcer, stage IV L89.154 Active confirmed 192967736 Problem Phimosis N47.1 Active confirmed 366271488 Problem Peripheral vascular disease I73.9 Active confirmed 514939241 Problem Vitamin D deficiency E55.9 Active confirmed 48293960 Problem ED (erectile dysfunction) N52.9 Active confirmed 072236024 Problem ARON (obstructive sleep apnea) G47.33 Active confirm ed 11457626 Problem Intervertebral disc disorder with radiculopathy of lumbar region M51.16 Active confirmed 792761346103515 Problem Gastroesophageal reflux disease without esophagitis K21.9 Active confirmed 903897717 Problem Osteoporotic compression fracture of spine with delayed healing M80.88XG Active confirmed 084702353 Problem Paronychia of great toe of right foot L03.031 Ac tive confirmed 701679082 Problem Community acquired pneumonia J18.9 Active confirme d 407265043 Problem Pressure ulcer of coccygeal region, stage 2 L89.15 2 Active confirmed Problem Stage II pressure ulcer of right buttock L89.312 Active confirmed 213113043 Problem Encounter for immunization Z23 Active confirmed 556747808 Problem Constipation, chronic K59.09 Active confirmed 841650948 Problem Stage III pressure ulcer of sacral region L89.153 Active confirmed 499845660 Problem Venous insufficiency of both lower extremities I87 .2 Active confirmed 669407990 Problem Apraxia R48.2 Active confirmed 42036006 Problem Macrocytosis D75.89 Active confirmed 4053696 00 Problem Stage 2 moderate COPD by GOLD classification J44.9 Active confirmed 217999909 ALLERGIES Allergen (clinical drug ingredient) Drug/Non Drug Allergy do cumented on EMR Reaction Allergy Type Onset Date Status Wellbutrin agitation Drug Allergy Active fluoxetine PROzac(NDC Code:[address]-12) depression Drug Allergy Active sertraline Zoloft(NDC Code:[address]-07) Diarrhea Drug Allergy Active mirtazapine Remeron(NDC Code:[address]-01) nightmares Drug Allergy Active ENCOUNTERS from 1955 to 2021-07-19 Encounter Location Date Provider Diagnosis [facility] [address] Floor [phone] [place] [address] 29 Jun, 2021 Warren Davila IMMUNIZATIONS Vaccine Route [...] dose #1 given elsewhere Unspecified IM Intramuscular [facility] 2020 Administered Influenza 6mo & up Fluzone [...] Education Language: Question Answer Notes Languages spoken: South Korean Caodaism: Question Answer Notes Caodaism 05 [facility] Drug and Alcohol Question Answer Notes Total [...] lower joint for 30 days fax to [phone] Mar, Active Rosuvastatin Calcium 10 MG 1 [...] Information RESULTS No Results REASON FOR VISIT WOUND CLINIC MEDICAL (GENERAL) HISTORY Type Description Date Medical History CAD, s/p AWMI post-op [place] ctomy-05/2017 very small apical thrombus, LVEF 40%-akinesis of apex, mid ant, mid anteroseptal, LV diastolic dysfx by 05/2017 TTE-Antec RST s ischemia but focal/global abnormality, LVEF 28%, high risk-[place]/12/2017 cath-no significant CAD-[place]/sp ICD 01/12/2018-[place]/02/19/19 TTE c LVEF 50-55%/no french dysfx-[facility] [...] to 6.25 BID 02/18-06/03 Hospitalization History 1D [employer] RLE cellulitis-WBC 9. 7,CRP 14 (3 at [...] 08-03 10:30:00 AM, [address], , [place], [address], Provider Name:Theodore Christy, 2021-08-24 1 1:45:00 AM, [address] [facility], , [place], [address], Insurance Providers Payer Name Payer Address Payer Phone Insured Name Patient Relati onship to Insured Coverage Start Date Coverage End Date [facility] [address] [id number] [facility] [phone] MACKENZIE DOLAN [id number] MEDICARE Part A and B [address] [place] [address] [phone] MACKENZIE DOLAN self
--- OUTSIDE RECORDS SUMMARY | 2021-08-17 00:50 | CCD | Continuity of Care Document ---
Author Author Nitesh CANDELARIA MARBLE WORKER Organization Unknown Address [address] [place] [address] [place] [address] Phone [phone] Care Team Providers Care Delivery And Installation Subcontractor Name Role Phone Saul Guadalupe AUTM [phone] Theodore Christy M.D. AUTM [phone] Problems Active Problems Provider Date Chronic pain syndrome Leandra Candelaria NP Onset: 05/16/2021 Acquired kyphosis Leandra Candelaria NP Onset: 05/16/2021 Diabetes mellitus Onset: Heart disease Onset: Heart attack Onset: Arthritis Onset: COPD - Chronic obstructive pulmonary disease Onset: Sleep apnea Onset: Social History Type Date Description Comments Sex Unknown Tobacco Use Start: Unknown Current Cigarette Smoker 1 Pack Daily ETOH Use Rarely consumes beer Recreational Drug Use Medical marijuana Tobacco Use Reviewed: 05/16/21 Heavy tobacco smoker (more than 10 cigarettes/day) Tobacco Use Reviewed: 05/16/21 Patient is a current smoker, smokes every day Smoking Status Reviewed: 05/16/21 Patient is a current smoker, smokes every day Allergies and adverse reactions Active Allergies Criticality Reaction | Severity Comments Date Remeron Unable to assess criticality 12/01/2017 Wellbutrin Unable to assess criticality 12/01/2017 Zoloft Unable to assess criticality 12/01/2017 Prozac Unable to assess criticality 12/01/2017 Medications Active Medications SIG Qnty Indications Ordering Provide r Date Iron 325(65Fe) mg Tablets 1 by mouth every day Unknown Gabapentin 800mg Tablets 1 by mouth four times a day Unknown Paroxetine HCL 40mg Tablets 1 by mouth every day Unknown Protonix 40mg Tablets DR 1 by mouth every day Unknown Aspirin 81mg Tablets DR 1 by mouth every day Unknown Carvedilol 12.5mg Tablets 1 by mouth twice daily Unknown Fluconazole 100mg Tablets take 100 mg by mouth daily Unknown Metformin HCL 500mg Tablets take 1 tablet by oral route 2 times every day with morning and evening meals Unknown Metaxalone 800mg Tablets Unknown Certavite Senior/Antioxidant Nutrients Tablets 1 by mouth every day Unknown 000 Rosuvastatin Calcium 10mg Tablets 1 by mouth every day Unknown Oxycodone HCL 10mg Tablets Unknown Amlodipine Besylate 2.5mg Tablets 1 by mouth every day Unknown Losartan Potassium 25mg Tablets 1 by mouth every day Unknown Immunizations Description No Information Available Vital Signs Date Vital Result Comment 05/16/2021 9:08am Height 69 inches 5'9" Weight 185.00 lb BMI (Body Mass Index) 27.3 kg/m2 BP Systolic 120 mmHg BP Diastolic 78 mmHg Heart Rate 70 /min Body Temperature 98.0 F Body Temperature 36.7 C 06/11/2018 10:29am Height 69 inches 5'9" Weight 195.00 lb Per Patient BMI (Body Mass Index) 28.8 kg/m2 BP Systolic Left Arm 120 mmHg BP Diastolic Left Arm 80 mmHg Heart Rate 47 /min Body Temperature 97.9 F Body Temperature 36.6 C O2 % BldC Oximetry 97 % Results Description No Information Available Procedures Date Code Description Status 05/16/2021 88651 Office/Outpatient Established Mo d MDM 30-39 Min Completed Medical Devices Description No Information Available Encounters Type Date Location Provider Dx Diagnosis Office Visit 05/16/2021 9:00a [facility] Neurosurgery Leandra Candelaria NP G8 9.4 Chronic pain syndrome Assessments Date Code Description Provider 05/16/2021 G89.4 Chronic pain syndrome Leandra boyer NP Plan of Treatment Future Appointment(s):* 07/25/2021 11:45 am - Sammy Haque MD at [facility] Neurosurgery 05/16/2021 - Leandra Candelaria NP* G89.4 Chronic pain syndrome* Referral:* Warren Davila MD, Anesthesiology Functional Status Description No Information Available Mental Status Description No Information Available Referrals Refer to Reason for Referral Status Appt Date Warren Davila MD Nervo trial. I believe pt bonds s seen him before. I already reached out to the [facility] who can help facilitate this. Sent 06/22/[address] [place], [place] [address] [phone]
--- OUTSIDE RECORDS SUMMARY | 2021-08-17 00:50 | CCD ---
Author Author [facility] Organization [facility] Address Unknown Phone Unavailable Care Team Providers Care Senior Sales Administrator Name Role Phone Mackenzie Silva Unavailable PROBLEMS Type Condition ICD9-CM Code SOC55-WI Code Onset Dates Condition S tatus W/U Status Risk SNOMED Code Notes Problem Anticoagulant long-term use Z79.01 Active confirmed 324689020 Problem Mixed hyperlipidemia E78.2 Active confirmed 680232780 Problem Major depressive disorder, single episode, unspecified F32.9 Active confirmed 05404003 Problem History of [place] (myocardial infarction) I25.2 Ac tive confirmed 749027019 Problem Vitamin D deficiency, unspecified E55.9 Active con firmed 51785341 Problem Non-pressure chronic ulcer o f other part of left foot with unspecified severity L97.529 Active confirmed 695863133 Problem Stage II pressure ulcer of sacral region L89.152 Active confirmed 120689839 Problem 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 Active confirmed 149384859 Problem Wound of right lower extremity S81.801A Active confirmed 438325022 Problem Pressure ulcer of right foot, stage 2 L89.892 Ac tive confirmed 681125382 Problem Stage IV pressure ulcer of sacral region L89.154 Active confirmed 837670900 Problem Stage II pressure ulcer of right hip L89.212 Act qamar confirmed 986916262 Problem Open wound of right foot, initial encounter S91.30 1A Active confirmed 650796440 Problem Disseminated candidiasis B37.7 Active confirmed 87124593 Problem 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 Active confir med 29003279 Problem Neurogenic incontinence N31.9 Active confirmed 185642889 Problem Iron deficiency anemia, unspecified iron deficiency an emia type D50.9 Active confirmed 93913413 Problem Recurrent UTI N39.0 Active confirmed 717019 001 Problem Nicotine use disorder F17.200 Active confirmed 79748223 Problem Neuropathic pain M79.2 Active confirmed 247 281572 Problem 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 Active confirmed 380654633 Problem Obesity (BMI 30-39.9) E66.9 Active confirmed 158150681 Problem Lumbar spondylosis M47.816 Active confirmed 711777422 Problem Prostate cancer screening Z12.5 Active confirmed 435440429 Problem Chronic pain syndrome G89.4 Active confirmed 280332389 Problem Postlaminectomy syndrome of lumbosacral region M96 .1 Active confirmed 765230276 Problem Lumbar spondylolysis M43.06 Active confirmed 782623257 Problem Ischemic cardiomyopathy I25.5 Active confirmed 279857037 Problem Hyperalgesia R20.8 Active confirmed 8155331 8 Problem Contracture of lower leg joint M24.569 Active confi rmed 8492847 Problem CKD (chronic kidney disease) stage 3, GFR 30-59 ml/min N18.3 Active confirmed 926236614 Problem Ataxia R27.0 Active confirmed 47861767 Problem Gout M10.9 Active confirmed 10862008 Problem NAFLD (nonalcoholic fatty liver disease) K76.0 Active confirmed 730431896 Problem Diabetes mellitus type 2 with complications E11.8 Active confirmed 867629593 Problem Lumbar post-laminectomy syndrome M96.1 Active conf irmed 552351279 Problem Hypertension, essential I10 Active confirmed 50805548 Problem Acquired phimosis N47.1 Active confirmed 26 9217662 Problem Sacral decubitus ulcer, stage IV L89.154 Active confirmed 424068161 Problem Phimosis N47.1 Active confirmed 491588590 Problem Peripheral vascular disease I73.9 Active confirmed 022777662 Problem Vitamin D deficiency E55.9 Active confirmed 17560030 Problem ED (erectile dysfunction) N52.9 Active confirmed 269750903 Problem ARON (obstructive sleep apnea) G47.33 Active confirm ed 90108202 Problem Intervertebral disc disorder with radiculopathy of lumbar region M51.16 Active confirmed 969865816969148 Problem Gastroesophageal reflux disease without esophagitis K21.9 Active confirmed 629407839 Problem Osteoporotic compression fracture of spine with delayed healing M80.88XG Active confirmed 195847887 Problem Paronychia of great toe of right foot L03.031 Ac tive confirmed 904075657 Problem Community acquired pneumonia J18.9 Active confirme d 346243341 Problem Pressure ulcer of coccygeal region, stage 2 L89.15 2 Active confirmed Problem Stage II pressure ulcer of right buttock L89.312 Active confirmed 452045517 Problem Encounter for immunization Z23 Active confirmed 719576998 Problem Constipation, chronic K59.09 Active confirmed 517378549 Problem Stage III pressure ulcer of sacral region L89.153 Active confirmed 218561485 Problem Venous insufficiency of both lower extremities I87 .2 Active confirmed 762770104 Problem Apraxia R48.2 Active confirmed 60226974 Problem Macrocytosis D75.89 Active confirmed 7435344 00 Problem Stage 2 moderate COPD by GOLD classification J44.9 Active confirmed 729183757 ALLERGIES Allergen (clinical drug ingredient) Drug/Non Drug Allergy do cumented on EMR Reaction Allergy Type Onset Date Status Wellbutrin agitation Drug Allergy Active fluoxetine PROzac(NDC Code:[address]-48) depression Drug Allergy Active sertraline Zoloft(NDC Code:[address]-90) Diarrhea Drug Allergy Active mirtazapine Remeron(NDC Code:[address]-59) nightmares Drug Allergy Active ENCOUNTERS from 1955 to 2021-07-10 Encounter Location Date Provider Diagnosis [facility] Wound Care [address] [phone] [place] [address] Jun, Mackenzie Silva Stage IV pressure ulcer of s acral region L89.154 IMMUNIZATIONS Vaccine Route Administration Date Status Influenza Pharmacy Given Unknown Jul 10, 2018 Refused COVID-19 dose #1 given elsewhere Unspecified IM Intramuscular [facility] 2020 Administered Influenza Pharmacy Given IM [...] Education Language: Question Answer Notes Languages spoken: Taiwanese Advent: Question Answer Notes Advent 05 [facility] Question Answer Notes Total [...] Information VITAL SIGNS Weight 188 lbs Jun, Height 69 in Jun, BMI 27.76 kg/m2 Jun, Heart Rate 53 /min Jun, Respiratory Rate 17 /min Jun, Temperature 95.2 degrees Fahrenheit Jun, Oximetry 98 Jun, Blood pressure systolic 132 mm Hg Jun, Blood pressure diastolic 66 mm Hg Jun, MEDICATIONS Medication SIG (Take, [...] lower joint for 30 days fax to [phone] Mar, Active Rosuvastatin Calcium 10 MG 1 [...] 2021-07-10 Procedure Date Ordered Result Body Site Medication: Silver Nitrate Stick topically 2021-07-06 N/A Medication: 4% Lidocaine topical cream (Anecream) 5gm 2021-07-06 N/A RESULTS No Results REASON FOR VISIT Right great toe & sacral wounds. 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 7,CRP 14 (3 at dc), -CT R tib/fib for abscess, -RLE DVT US, rxed c vanco/ceftr, dced on cefdinir 7D, -BCX2 04/10- Goals Section No Information Health Concerns No Information MEDICAL EQUIPMENT No Information MENTAL STATUS No Information FUNCTIONAL STATUS No Information ASSESSMENTS Encounter Date Diagnosis Assessment Notes Treatment Notes Treatm ent Clinical Notes Jun, Stage IV pressure ulcer of sacral region (ICD-10 - L89.154) PLAN OF TREATMENT Next Appt Details 4 Weeks Reason: Provider Name:Dennise Khanna, 08-03 10:30:00 AM, [address], , [place], [address], Provider Name:Theodore Christy, 2021-08-24 1 1:45:00 AM, [address] [place] [address], , [place], [address], Insurance Providers Payer Name Payer Address Payer Phone Insured Name Patient Relati onship to Insured Coverage Start Date Coverage End Date [facility] [address] [address] [facility] [phone] MACKENZIE DOLAN [id number] MEDICARE Part A and B [address] [place] [phone] MACKENZIE DOLAN self
--- OUTSIDE RECORDS SUMMARY | 2021-08-17 00:51 | CCD | Continuity of Care Document ---
Author Author Nitesh CLIFFORD DPClementina Organization Unknown Address [address] [place] [address], [address] [place] [address] Phone [phone] Care Team Providers Care Milling General Superintendent Name Role Phone Theodore Christy M.D.M [phone] Problems Active Problems Provider Date Joint contracture of the ankle and/or foot Luke Clifford DPM Onset: 06/14/2017 Type 2 diabetes mellitus with diabetic polyneuropathy Luke Clifford DPM Onset: 06/14/2017 Onychomycosis Luke Clifford DPM Onset: 06/14/2017 Social History Type Date Description Comments Sex Unknown ETOH Use Rarely consumes beer one occasio wu Tobacco Use Start: Unknown Patient is a current smoker, smo kes every day smokes 8 cigs daily quit 2 1/2 years now smokes 45 years Allergies and adverse reactions Active Allergies Criticality Reaction | Severity Comments Date Remeron Unable to assess criticality nightmares 06/11/2017 Wellbutrin Unable to assess criticality agitation 06/11/2017 Zoloft Unable to assess criticality diarrhea 06/11/2017 Prozac Unable to assess criticality depression 06/11/2017 Lyrica Unable to assess criticality incontinence 06/11/2017 Medications Active Medications SIG Qnty Indications Ordering Provide r Date Lidocaine 4% Cream Apply To Affected Area(S) On Foot 2-3 Times Daily as Needed 30units Luke Clifford DPM 05/29/2020 Aspercreme W/Lidocaine 4% Cream apply to foot 2-3 times daily as needed 1units Luke Clifford DPM 04/17/2020 Ferrous Sulfate 325(65Fe) mg Table ts Take One Tablet By Mouth Every Day Unknown Fluconazole 200mg Tablets Take Two Tablets By Mouth Every Day Unknown Amitriptyline HCL 25mg Tablets Take One Tablet By Mouth Every Day Unknown Certavite/Antioxidants Tablets Take One Tablet By Mouth Every Day Unknown Gabapentin 600mg Tablets Take One Tablet By Mouth Twice A Day AT 2PM And 9PM Unknown Oxycodone-Acetaminophen 5-325mg Ta blets Take One Tablet By Mouth Four Times A Day as Needed Maximum Daily Dose Unknown Pantoprazole Sodium 40mg Tablets D R Take One Tablet By Mouth Every Day Unknown Paroxetine HCL 40mg Tablets Take One Tablet By Mouth Every Morning Unknown Warfarin Sodium 1mg Tablets Take 1 Tablet By Mouth Every Friday And Friday And Unknown Acetaminophen 325mg Tablets Take 1 2 [place] By Mouth Every 4 Hours as Needed Unknown Chlorhexidine Gluconate 0.12% Solu tion After Brushing Teeth Rinse And Spit With 15MLS Twice A Day For Gum DI Unknown Milk Of Magnesia 7.75% Suspension Give 10ML By Mouth Once Daily as Needed For Constipation Unknown Immunizations Description No Information Available Vital Signs Date Vital Result Comment 06/11/2017 2:37pm Height 69 inches 5'9" Weight 240.00 lb BP Systolic 122 mmHg BP Diastolic 68 mmHg Heart Rate 96 /min BMI (Body Mass Index) 35.4 kg/m2 Results Description No Information Available Procedures Date Code Description Status 06/11/2021 12016 Debridement 6-10 Nails Electric Completed 04/02/2021 62269 Debridement 6-10 Nails Electric Completed 01/22/2021 16405 Debridement 6-10 Nails Electric Completed Medical Devices Description No Information Available Encounters Description No Information Available Assessments Date Code Description Provider 06/11/2021 B35.1 Tinea unguium Luke Clifford DPM 06/11/2021 E11.42 Type 2 diabetes mellitus with di abetic polyneuropathy Luke Clifford DPM 04/02/2021 B35.1 Tinea unguium Luke Clifford DPM 04/02/2021 E11.42 Type 2 diabetes mellitus with di abetic polyneuropathy Luke Clifford DPM 01/22/2021 B35.1 Tinea unguium Luke Clifford DPM 01/22/2021 E11.42 Type 2 diabetes mellitus with di abetic polyneuropathy Luke Clifford DPM Plan of Treatment Future Appointment(s):* 08/20/2021 10:00 am - Luke Clifford DPM at [facility] Functional Status Description No Information Available Mental Status Description No Information Available Referrals Description No Information Available
--- OUTSIDE RECORDS SUMMARY | 2021-08-17 00:51 | CCD ---
Author Author [facility] Organization [facility] Address Unknown Phone Unavailable Care Team Providers Care Metal Mine Inspector Name Role Phone Warren Davila Unavailable PROBLEMS Type Condition ICD9-CM Code [id number] Code Onset Dates Condition S tatus W/U Status Risk SNOMED Code Notes Problem Stage II pressure ulcer of right hip L89.212 Act qamar confirmed 303150445 Problem Major depressive disorder, single episode, unspecified F32.9 Active confirmed 10535969 Problem Anticoagulant long-term use Z79.01 Active confirmed 132390251 Problem Vitamin D deficiency, unspecified E55.9 Active con firmed 51214392 Problem Mixed hyperlipidemia E78.2 Active confirmed 499553868 Problem 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 Active confirmed 424196500 Problem Wound of right lower extremity S81.801A Active confirmed 644966190 Problem ED (erectile dysfunction) N52.9 Active confirmed 100225831 Problem ARON (obstructive sleep apnea) G47.33 Active confirm ed 96695672 Problem Stage IV pressure ulcer of sacral region L89.154 Active confirmed 788326423 Problem Stage II pressure ulcer of sacral region L89.152 Active confirmed 879957629 Problem Open wound of right foot, initial encounter S91.30 1A Active confirmed 910374913 Problem Pressure ulcer of right foot, stage 2 L89.892 Ac tive confirmed 747519511 Problem Obesity (BMI 30-39.9) E66.9 Active confirmed 620498312 Problem Prostate cancer screening Z12.5 Active confirmed 311189475 Problem Disseminated candidiasis B37.7 Active confirmed 36110518 Problem 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 Active confir med 44558182 Problem Nicotine use disorder F17.200 Active confirmed 98911941 Problem Neurogenic incontinence N31.9 Active confirmed 251500970 Problem 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 Active confirmed 031996429 Problem History of MD (myocardial infarction) I25.2 Ac tive confirmed 265595985 Problem Lumbar spondylosis M47.816 Active confirmed 432424421 Problem Iron deficiency anemia, unspecified iron deficiency an emia type D50.9 Active confirmed 72418883 Problem Neuropathic pain M79.2 Active confirmed 247 223570 Problem NAFLD (nonalcoholic fatty liver disease) K76.0 Active confirmed 074937730 Problem Lumbar spondylolysis M43.06 Active confirmed 980778858 Problem Chronic pain syndrome G89.4 Active confirmed 412161864 Problem Hyperalgesia R20.8 Active confirmed 6019083 8 Problem Postlaminectomy syndrome of lumbosacral region M96 .1 Active confirmed 530916708 Problem CKD (chronic kidney disease) stage 3, GFR 30-59 ml/min N18.3 Active confirmed 424942359 Problem Ischemic cardiomyopathy I25.5 Active confirmed 267349126 Problem Recurrent UTI N39.0 Active confirmed 613323 001 Problem Gout M10.9 Active confirmed 90429489 Problem Diabetes mellitus type 2 with complications E11.8 Active confirmed 399576795 Problem Ataxia R27.0 Active confirmed 41615885 Problem Hypertension, essential I10 Active confirmed 18391216 Problem Stage III pressure ulcer of sacral region L89.153 Active confirmed 261524669 Problem Sacral decubitus ulcer, stage IV L89.154 Active confirmed 279259239 Problem Lumbar post-laminectomy syndrome M96.1 Active conf irmed 175347089 Problem Vitamin D deficiency E55.9 Active confirmed 58233005 Problem Acquired phimosis N47.1 Active confirmed 26 7554515 Problem Intervertebral disc disorder with radiculopathy of lumbar region M51.16 Active confirmed 290992043913739 Problem Gastroesophageal reflux disease without esophagitis K21.9 Active confirmed 106840814 Problem Phimosis N47.1 Active confirmed 886994107 Problem Peripheral vascular disease I73.9 Active confirmed 953944360 Problem Non-pressure chronic ulcer o f other part of left foot with unspecified severity L97.529 Active confirmed 294328555 Problem Osteoporotic compression fracture of spine with delayed healing M80.88XG Active confirmed 619427155 Problem Paronychia of great toe of right foot L03.031 Ac tive confirmed 235051487 Problem Stage 2 moderate COPD by GOLD classification J44.9 Active confirmed 777243920 Problem Constipation, chronic K59.09 Active confirmed 889045957 Problem Pressure ulcer of coccygeal region, stage 2 L89.15 2 Active confirmed Problem Contracture of lower leg joint M24.569 Active confi rmed 3685020 Problem Stage II pressure ulcer of right buttock L89.312 Active confirmed 828629468 Problem Community acquired pneumonia J18.9 Active confirme d 831510841 Problem Venous insufficiency of both lower extremities I87 .2 Active confirmed 141433754 Problem Apraxia R48.2 Active confirmed 36690618 Problem Macrocytosis D75.89 Active confirmed 7832109 00 ALLERGIES Allergen (clinical drug ingredient) Drug/Non Drug Allergy do cumented on EMR Reaction Allergy Type Onset Date Status wellbutrin agitation Non Drug Allergy Active zoloft Diarrhea Non Drug Allergy Active prozac depression Non Drug Allergy Active remeron nightmares Non Drug Allergy Active ENCOUNTERS from 1955 to 2021-06-15 Encounter Location Date Provider Diagnosis [facility] [address] [phone] [place] [address] Jun, Warren Davila Lumbar spondylosis M 47.816 IMMUNIZATIONS Vaccine Route Administration Date Status Influenza [...] dose #1 given elsewhere Unspecified IM Intramuscular [facility] 2020 Administered Influenza 6mo & up Fluzone [...] Education Language: Question Answer Notes Languages spoken: Belarusian Bahai: Question Answer Notes Bahai 05 Alev[facility] Drug and Alcohol Question Answer Notes Total [...] lower joint for 30 days fax to [phone] Mar, Active Blood Glucose Test - as directed intradermally bid DX: E11.9 for 25 Active PROCEDURES No Information RESULTS No Results REASON FOR VISIT OXYCODONE REFILL MEDICAL (GENERAL) HISTORY Type Description Date Medical History CAD, s/p AWMI post-op [place] ctomy-05/2017 very small apical thrombus, LVEF 40%-akinesis of apex, mid ant, mid anteroseptal, LV diastolic dysfx by 05/2017 TTE-Antecol/07/2017 RST s ischemia but focal/global abnormality, LVEF 28%, high risk-[facility]/12/2017 cath-no significant CAD-[place]/sp ICD 01/12/2018-[place]/02/19/19 TTE c LVEF 50-55%/no french dysfx-[facility] [...] to 6.25 BID 02/18-06/03 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 7,CRP 14 (3 [...] Provider Name:Warren Davila, 2021-06-22 10:45:00 AM, [address], , [place], [address], Provider Name:Mackenzie Silva, 11:00:00 AM, [address], , [place], [address], Provider Name:Theodore Christy, 2021-08-24 1 1:45:00 AM, [address], , [place], [address], Insurance Providers Payer Name Payer Address Payer Phone Insured Name Patient Relati onship to Insured Coverage Start Date Coverage End Date MEDICARE Part A and B [address] [facility] [phone] MACKENZIE DOLAN [facility] [address] [address] [facility] [id number] [phone] MACKENZIE DOLAN [id number]
--- OUTSIDE RECORDS SUMMARY | 2021-08-17 00:51 | CCD ---
Author Author [facility] Organization [facility] Address Unknown Phone Unavailable Care Team Providers Care Professor Of Surgery Name Role Phone Ha Pelaez Unavailable PROBLEMS Type Condition ICD9-CM Code CAT97-RA Code Onset Dates Condition S tatus W/U Status Risk SNOMED Code Notes Problem Stage II pressure ulcer of right hip L89.212 Act qamar confirmed 293877204 Problem Major depressive disorder, single episode, unspecified F32.9 Active confirmed 95833208 Problem Anticoagulant long-term use Z79.01 Active confirmed 306722288 Problem Vitamin D deficiency, unspecified E55.9 Active con firmed 68363562 Problem Mixed hyperlipidemia E78.2 Active confirmed 922048831 Problem 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 Active confirmed 205007419 Problem Wound of right lower extremity S81.801A Active confirmed 468593325 Problem ED (erectile dysfunction) N52.9 Active confirmed 526171406 Problem ARON (obstructive sleep apnea) G47.33 Active confirm ed 35783354 Problem Stage IV pressure ulcer of sacral region L89.154 Active confirmed 073057858 Problem Stage II pressure ulcer of sacral region L89.152 Active confirmed 504905255 Problem Open wound of right foot, initial encounter S91.30 1A Active confirmed 220381201 Problem Pressure ulcer of right foot, stage 2 L89.892 Ac tive confirmed 026584055 Problem Obesity (BMI 30-39.9) E66.9 Active confirmed 503790967 Problem Prostate cancer screening Z12.5 Active confirmed 069945547 Problem Disseminated candidiasis B37.7 Active confirmed 57012741 Problem 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 Active confir med 64925514 Problem Nicotine use disorder F17.200 Active confirmed 10415027 Problem Neurogenic incontinence N31.9 Active confirmed 243705362 Problem 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 Active confirmed 604748771 Problem History of [place] (myocardial infarction) I25.2 Ac tive confirmed 306041478 Problem Lumbar spondylosis M47.816 Active confirmed 738418233 Problem Iron deficiency anemia, unspecified iron deficiency an emia type D50.9 Active confirmed 60975307 Problem Neuropathic pain M79.2 Active confirmed 247 626231 Problem NAFLD (nonalcoholic fatty liver disease) K76.0 Active confirmed 770380834 Problem Lumbar spondylolysis M43.06 Active confirmed 148567035 Problem Chronic pain syndrome G89.4 Active confirmed 711284573 Problem Hyperalgesia R20.8 Active confirmed 5979771 8 Problem Postlaminectomy syndrome of lumbosacral region M96 .1 Active confirmed 882007188 Problem CKD (chronic kidney disease) stage 3, GFR 30-59 ml/min N18.3 Active confirmed 654113403 Problem Ischemic cardiomyopathy I25.5 Active confirmed 896138299 Problem Recurrent UTI N39.0 Active confirmed 922898 001 Problem Gout M10.9 Active confirmed 47361176 Problem Diabetes mellitus type 2 with complications E11.8 Active confirmed 005896919 Problem Ataxia R27.0 Active confirmed 83736326 Problem Hypertension, essential I10 Active confirmed 29414272 Problem Stage III pressure ulcer of sacral region L89.153 Active confirmed 692957844 Problem Sacral decubitus ulcer, stage IV L89.154 Active confirmed 420520727 Problem Lumbar post-laminectomy syndrome M96.1 Active conf irmed 700499662 Problem Vitamin D deficiency E55.9 Active confirmed 59430593 Problem Acquired phimosis N47.1 Active confirmed 26 1250206 Problem Intervertebral disc disorder with radiculopathy of lumbar region M51.16 Active confirmed 013759064330763 Problem Gastroesophageal reflux disease without esophagitis K21.9 Active confirmed 594017061 Problem Phimosis N47.1 Active confirmed 639294346 Problem Peripheral vascular disease I73.9 Active confirmed 110530873 Problem Non-pressure chronic ulcer o f other part of left foot with unspecified severity L97.529 Active confirmed 735647561 Problem Osteoporotic compression fracture of spine with delayed healing M80.88XG Active confirmed 800178015 Problem Paronychia of great toe of right foot L03.031 Ac tive confirmed 904113048 Problem Stage 2 moderate COPD by GOLD classification J44.9 Active confirmed 695497231 Problem Constipation, chronic K59.09 Active confirmed 417213454 Problem Pressure ulcer of coccygeal region, stage 2 L89.15 2 Active confirmed Problem Contracture of lower leg joint M24.569 Active confi rmed 6545384 Problem Stage II pressure ulcer of right buttock L89.312 Active confirmed 669193312 Problem Community acquired pneumonia J18.9 Active confirme d 995922420 Problem Venous insufficiency of both lower extremities I87 .2 Active confirmed 274217634 Problem Apraxia R48.2 Active confirmed 81565981 Problem Macrocytosis D75.89 Active confirmed 1951681 00 ALLERGIES Allergen (clinical drug ingredient) Drug/Non Drug Allergy do cumented on EMR Reaction Allergy Type Onset Date Status wellbutrin agitation Non Drug Allergy Active zoloft Diarrhea Non Drug Allergy Active prozac depression Non Drug Allergy Active remeron nightmares Non Drug Allergy Active ENCOUNTERS from 1955 to 2021-05-22 Encounter Location Date Provider Diagnosis [facility] [address] [phone] [place] [address] 02 May, 2021 Ha Pelaez IMMUNIZATIONS Vaccine Route Administration Date Status Influenza 6mo & up Fluzone Unknown Aug 06, 2019 Refus ed Influenza 18 yrs & older Flublok Unknown Jul 09, 2019 Others Influenza Pharmacy Given Unknown Jul 10, 2018 Refused COVID-19 dose #1 given elsewhere Unspecified IM Intramuscular [facility] 2020 Administered Influenza Pharmacy Given IM Intramuscular Jun 24, 2018 Admini stered Influenza 6mo & up Fluzone IM Intramuscular [...] Language: Question Answer Notes Languages spoken: Ugandan Bahai: Question Answer Notes Bahai 05 Orthodox Drug and Alcohol Question Answer Notes Total [...] ho urs prn for 30 Days Active Losartan Potassium 25 mg 1 tablet Orally every morning for 90 day(s) Active Reclast 5 MG/100ML as directed Intravenous Active Pantoprazole Sodium 40 MG 1 tablet Orally every morning for 90 day(s ) Active Gabapentin 600 MG 1 tablet Orally three times daily for 90 day(s) Active Skelaxin 800 MG 1 tablet Orally Three times a day for 90 day(s) Active Rosuvastatin Calcium 10 MG 1 tablet Orally Once a day for 30 Days Active Rosuvastatin Calcium 10 MG 1 tablet Orally Once a day for 90 day(s) Active PARoxetine HCl 40 MG 1 tablet in the morning Orally Once a day f or 90 day(s) Active metFORMIN HCl ER 500 MG 1 tab Orally bid for 90 day(s) Active Combivent Respimat 20-100 mcg/act 1 puff Inhalation fo ur times daily as needed for 30 Days Active Aspirin 81 MG 1 tablet Orally Once a day for 90 day(s) Active oxyCODONE HCl 10 MG 1 tablet as needed Orally ev jimi 12 hrs prn pain MDD 2 for 30 days May, Active Gait/Transfer Belt - as directed Apr, A ctive Ferrous Sulfate 325 (65 Fe) MG 1 tablet Orally Once a day for 30 day( s) Active Voltaren 1 % 4 gm Transdermal every 4-hours as needed for 30 Days Sep, Active CertaVite/Antioxidants - 1 tablet Orally Once a day for 30 Active CertaVite/Antioxidants - 1 tablet Orally Once a day Active Blood Glucose Test - as directed intradermally bid DX: E11.9 for 25 Active oxyCODONE HCl 10 MG 1 tablet as needed Orally Daily prn severe pain M DD=1 Active Carvedilol 6.25 MG 1 tab Orally bid for 90 day(s) Active Fluconazole 200 MG 2 tablets Orally Daily for 90 day(s) Active Hydrocerin - as directed Externally bid to lower legs from kn ees down for 30 Active May Use 1 brace for left lower extremi ty as directed DX:R27.0 daily contracture of lower joint for 30 days fax to [phone] Mar, Active May Use - as directed boot for right foot Daily-DX: M19.07 1 for 30 Days Dec, Active Prevail Wet Wipes - as directed for dx=G82.21 (paraplegia) D aily for 90 day(s) Apr, Active MiraLax - 1 packet mixed with 8 ounces of fluid Or ally Once a day for 90 day(s) Active amLODIPine Besylate 2.5 MG 1 tablet Orally every moring for 90 day(s) Active May Have - large non-skid socks for dx=G82.21 (para plegia) Daily for 90 day(s) Apr, Active PROCEDURES No Information RESULTS No Results REASON FOR VISIT OXYCODONE MEDICAL (GENERAL) HISTORY Type Description Date Medical History CAD, s/p AWMI post-op [place] ctomy-05/2017 very small apical thrombus, LVEF 40%-akinesis of apex, mid ant, mid anteroseptal, LV diastolic dysfx by 05/2017 TTE-Antecol/07/2017 RST s ischemia but focal/global abnormality, LVEF 28%, high risk-[place]/12/2017 cath-no significant CAD-[place]/sp ICD 01/12/2018-[place]/02/19/19 TTE c [...] to 6.25 BID 02/18-06/03 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 7,CRP 14 (3 at dc), -CT R tib/fib for abscess, -RLE DVT US, rxed c vanco/ceftr, dced on cefdinir 7D, -BCX2 04/10- Goals Section No Information Health Concerns No Information MEDICAL EQUIPMENT No Information MENTAL STATUS No Information FUNCTIONAL STATUS No Information ASSESSMENTS No Information PLAN OF TREATMENT Medication Medication Name Sig Start Date Stop Date Hydrocerin - as directed Externally bid to lower legs from kn ees down for 30 oxyCODONE HCl 10 MG 1 tablet as needed Orally ev jimi 12 hrs prn pain MDD 2 for 30 days May, Next Appt Details Provider Name:Mackenzie Silva, 11:15:00 AM, [address], , [place], [address], Provider Name:Warren Davila, 2021-06-22 10:45:00 AM, [address], , [place], [address], Provider Name:Theodore Christy, 2021-08-24 1 1:45:00 AM, [address] [facility], , [place], [address], Insurance Providers Payer Name Payer Address Payer Phone Insured Name Patient Relati onship to Insured Coverage Start Date Coverage End Date [employer] [id number] [facility] [id number] MACKENZIE DOLAN [id number]
--- OUTSIDE RECORDS SUMMARY | 2021-08-17 00:51 | CCD ---
Author Author [facility] Organization [facility] Address Unknown Phone Unavailable Care Team Providers Care Development Representative Name Role Phone Mackenzie Silva Unavailable PROBLEMS Type Condition ICD9-CM Code [id number] Code Onset Dates Condition S tatus W/U Status Risk SNOMED Code Notes Problem Stage II pressure ulcer of right hip L89.212 Act qamar confirmed 936907840 Problem Major depressive disorder, single episode, unspecified F32.9 Active confirmed 23204357 Problem Anticoagulant long-term use Z79.01 Active confirmed 746523893 Problem Vitamin D deficiency, unspecified E55.9 Active con firmed 07337925 Problem Mixed hyperlipidemia E78.2 Active confirmed 210206027 Problem 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 Active confirmed 938773071 Problem Wound of right lower extremity S81.801A Active confirmed 641886365 Problem ED (erectile dysfunction) N52.9 Active confirmed 665871987 Problem ARON (obstructive sleep apnea) G47.33 Active confirm ed 97341887 Problem Stage IV pressure ulcer of sacral region L89.154 Active confirmed 068824875 Problem Stage II pressure ulcer of sacral region L89.152 Active confirmed 955077091 Problem Open wound of right foot, initial encounter S91.30 1A Active confirmed 868298336 Problem Pressure ulcer of right foot, stage 2 L89.892 Ac tive confirmed 445164903 Problem Obesity (BMI 30-39.9) E66.9 Active confirmed 300107993 Problem Prostate cancer screening Z12.5 Active confirmed 846029006 Problem Disseminated candidiasis B37.7 Active confirmed 91005493 Problem 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 Active confir med 21675379 Problem Nicotine use disorder F17.200 Active confirmed 68197805 Problem Neurogenic incontinence N31.9 Active confirmed 352647783 Problem 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 Active confirmed 821912996 Problem History of AR (myocardial infarction) I25.2 Ac tive confirmed 912250522 Problem Lumbar spondylosis M47.816 Active confirmed 742165952 Problem Iron deficiency anemia, unspecified iron deficiency an emia type D50.9 Active confirmed 55299287 Problem Neuropathic pain M79.2 Active confirmed 247 110033 Problem NAFLD (nonalcoholic fatty liver disease) K76.0 Active confirmed 056569371 Problem Lumbar spondylolysis M43.06 Active confirmed 597177793 Problem Chronic pain syndrome G89.4 Active confirmed 726577642 Problem Hyperalgesia R20.8 Active confirmed 9323318 8 Problem Postlaminectomy syndrome of lumbosacral region M96 .1 Active confirmed 488470991 Problem CKD (chronic kidney disease) stage 3, GFR 30-59 ml/min N18.3 Active confirmed 961968829 Problem Ischemic cardiomyopathy I25.5 Active confirmed 403327435 Problem Recurrent UTI N39.0 Active confirmed 854173 001 Problem Gout M10.9 Active confirmed 86708407 Problem Diabetes mellitus type 2 with complications E11.8 Active confirmed 282458953 Problem Ataxia R27.0 Active confirmed 93388772 Problem Hypertension, essential I10 Active confirmed 46431177 Problem Stage III pressure ulcer of sacral region L89.153 Active confirmed 811622414 Problem Sacral decubitus ulcer, stage IV L89.154 Active confirmed 213815807 Problem Lumbar post-laminectomy syndrome M96.1 Active conf irmed 377003447 Problem Vitamin D deficiency E55.9 Active confirmed 47364315 Problem Acquired phimosis N47.1 Active confirmed 26 4799753 Problem Intervertebral disc disorder with radiculopathy of lumbar region M51.16 Active confirmed 247328972760828 Problem Gastroesophageal reflux disease without esophagitis K21.9 Active confirmed 973845078 Problem Phimosis N47.1 Active confirmed 803260743 Problem Peripheral vascular disease I73.9 Active confirmed 553201390 Problem Non-pressure chronic ulcer o f other part of left foot with unspecified severity L97.529 Active confirmed 560966988 Problem Osteoporotic compression fracture of spine with delayed healing M80.88XG Active confirmed 629075357 Problem Paronychia of great toe of right foot L03.031 Ac tive confirmed 423713634 Problem Stage 2 moderate COPD by GOLD classification J44.9 Active confirmed 044051274 Problem Constipation, chronic K59.09 Active confirmed 033229651 Problem Pressure ulcer of coccygeal region, stage 2 L89.15 2 Active confirmed Problem Contracture of lower leg joint M24.569 Active confi rmed 1902299 Problem Stage II pressure ulcer of right buttock L89.312 Active confirmed 616454438 Problem Community acquired pneumonia J18.9 Active confirme d 222143594 Problem Venous insufficiency of both lower extremities I87 .2 Active confirmed 467279696 Problem Apraxia R48.2 Active confirmed 30681253 Problem Macrocytosis D75.89 Active confirmed 1804256 00 ALLERGIES Allergen (clinical drug ingredient) Drug/Non Drug Allergy do cumented on EMR Reaction Allergy Type Onset Date Status wellbutrin agitation Non Drug Allergy Active zoloft Diarrhea Non Drug Allergy Active prozac depression Non Drug Allergy Active remeron nightmares Non Drug Allergy Active ENCOUNTERS from 1955 to 2021-06-11 Encounter Location Date Provider Diagnosis [facility] [address] [facility] [phone] [place] [address] May, Mackenzie Silva 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 ; Pressure ulcer of coccygeal region, stage 2 L89.152 and Other nail disorders L60.8 IMMUNIZATIONS Vaccine Route Administration Date Status Influenza 6mo & up Fluzone Unknown Aug 06, 2019 Refus ed Influenza 18 yrs & older Flublok Unknown Jul 09, 2019 Others Influenza Pharmacy Given Unknown Jul 10, 2018 Refused COVID-19 dose #1 given elsewhere Unspecified IM Intramuscular [facility] 2020 Administered Influenza Pharmacy Given IM Intramuscular [...] Education Language: Question Answer Notes Languages spoken: Ivorian Congregational: Question Answer Notes Congregational 05 Islam Drug and Alcohol Question Answer Notes Total [...] FOR REFERRAL No Information VITAL SIGNS Weight 185 lbs May, Height 69 in May, BMI 27.32 kg/m2 May, Heart Rate 60 /min May, Respiratory Rate 16 /min May, Temperature 99.1 degrees Fahrenheit May, Oximetry 98 May, Blood pressure systolic 136 mm Hg May, Blood pressure diastolic 71 mm Hg May, MEDICATIONS Medication SIG (Take, Route, Frequency, Duration) [...] 1 tablet Orally Once a day Active Gabapentin 600 MG 1 tablet Orally three times daily for 90 day(s) Active metFORMIN HCl ER 500 MG 1 tab Orally bid for 90 day(s) Active Aspirin 81 MG 1 tablet Orally Once a day for 90 day(s) Active Reclast 5 MG/100ML as directed Intravenous Active MiraLax - 1 packet mixed with 8 ounces of fluid Or ally Once a day for 90 day(s) Active Rosuvastatin Calcium 10 MG 1 tablet Orally Once a day for 90 day(s) Active Hydrocerin - as directed Externally bid to lower legs from kn ees down for 30 Active Skelaxin 800 MG 1 tablet Orally Three times a day for 90 day(s) Active Combivent Respimat 20-100 mcg/act 1 puff Inhalation fo ur times daily as needed for 30 Days Active oxyCODONE HCl 10 MG 1 tablet as needed Orally Daily prn severe pain M DD=1 Active Gait/Transfer Belt - as directed Apr, A ctive Voltaren 1 % 4 gm Transdermal every 4-hours as needed for 30 Days Sep, Active Prevail Wet Wipes - as directed for dx=G82.21 (paraplegia) D aily for 90 day(s) Apr, Active May Use 1 brace for left lower extremi ty as directed DX:R27.0 daily contracture of lower joint for 30 days fax to [phone] Mar, Active Blood Glucose Test - as directed intradermally bid DX: E11.9 for 25 Active PROCEDURES from 1955 to 2021-06-11 Procedure Date Ordered Result Body Site Medication: 4% Lidocaine topical cream (Anecream) 5gm 2021-06-04 N/A RESULTS No Results REASON FOR VISIT Right great toe & sacral wounds. MEDICAL (GENERAL) HISTORY Type Description Date Medical History CAD, s/p AWMI post-op [place] ctomy-05/2017 very small apical thrombus, LVEF 40%-akinesis of apex, mid ant, mid anteroseptal, LV diastolic dysfx by 05/2017 TTE-Antecol/07/2017 RST s ischemia but focal/global abnormality, LVEF 28%, high risk-[place]/12/2017 cath-no significant CAD-[place]/sp ICD 01/12/2018-[place]/02/19/19 TTE c LVEF 50-55%/no french [...] to 6.25 BID 02/18-06/03 Hospitalization History 1D [employer] RLE cellulitis-WBC 9. 7,CRP 14 (3 at dc), -CT R tib/fib for abscess, -RLE DVT US, rxed c vanco/ceftr, dced on cefdinir 7D, -BCX2 04/10- Goals Section No Information Health Concerns No Information MEDICAL EQUIPMENT No Information MENTAL STATUS No Information FUNCTIONAL STATUS No Information ASSESSMENTS Encounter Date Diagnosis Assessment Notes Treatment Notes Treatm ent Clinical Notes May, 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 layer exposed (ICD-10 - L97.512) May, Pressure ulcer of coccygeal region, stage 2 (ICD -10 - L89.152) IZhanna, documented the above order acting as a scribe for Dr. Silva. I have reviewed the above order , written by susie Vera, and I verify it is accurate. May, Other nail disorders (ICD-10 - L60.8) PLAN OF TREATMENT Treatment Notes Assessment Notes Clinical Notes Pressure ulcer of coccygeal region, stage 2 IZhanna, documented the above order acting as a scribe for Dr. Silva. I have reviewed the above order , written by susie Vera, and I verify it is accurate. Next Appt Details 4 Weeks Reason: Provider Name:Warren Davila, 2021-06-22 10:45:00 AM, [address], , [place], [address], Provider Name:Mackenzie Silva, 11:00:00 AM, [address] [facility], , [place], [address], Provider Name:Theodore Christy, 2021-08-24 1 1:45:00 AM, [address] [facility], , [place], [address], Insurance Providers Payer Name Payer Address Payer Phone Insured Name Patient Relati onship to Insured Coverage Start Date Coverage End Date MEDICARE Part A and B [address] [facility] [id number] MACKENZIE DOLAN self [facility] [address] [id number] [facility] [id number] MACKENZIE DOLAN [id number]
--- OUTSIDE RECORDS SUMMARY | 2021-08-17 00:51 | CCD | Continuity of Care Document ---
Author Author [facility] Organization Unknown Address [address] [place] [address], [address] [place] [address] Phone [phone] Care Team Providers Care Spring Manufacturing Set Up Technician Name Role Phone Theodore Christy M.D.M [phone] Problems Active Problems Provider Date Joint contracture [...] Information Available Procedures Date Code Description Status 04/02/2021 31815 Debridement 6-10 Nails Electric Completed 01/22/2021 29995 Debridement 6-10 Nails Electric Completed Medical Devices Description No Information Available Encounters Description No Information Available Assessments Date Code Description Provider 04/02/2021 B35.1 Tinea unguium Luke Clifford DPM 04/02/2021 E11.42 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
--- OUTSIDE RECORDS SUMMARY | 2021-08-17 00:51 | CCD ---
Author Author [facility] Organization [facility] Address Unknown Phone Unavailable Care Team Providers Care Director Medicaid Name Role Phone Mackenzie Silva Unavailable PROBLEMS Type Condition ICD9-CM Code [id number] Code Onset Dates Condition S tatus W/U Status Risk SNOMED Code Notes Problem Stage II pressure ulcer of right hip L89.212 Act qamar confirmed 156819748 Problem Major depressive disorder, single episode, unspecified F32.9 Active confirmed 21887777 Problem Anticoagulant long-term use Z79.01 Active confirmed 647300840 Problem Vitamin D deficiency, unspecified E55.9 Active con firmed 36798487 Problem Mixed hyperlipidemia E78.2 Active confirmed 705779761 Problem 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 Active confirmed 396468345 Problem Wound of right lower extremity S81.801A Active confirmed 934993959 Problem ED (erectile dysfunction) N52.9 Active confirmed 583690620 Problem ARON (obstructive sleep apnea) G47.33 Active confirm ed 71419669 Problem Stage IV pressure ulcer of sacral region L89.154 Active confirmed 093376943 Problem Stage II pressure ulcer of sacral region L89.152 Active confirmed 344290614 Problem Open wound of right foot, initial encounter S91.30 1A Active confirmed 636611305 Problem Pressure ulcer of right foot, stage 2 L89.892 Ac tive confirmed 191647317 Problem Obesity (BMI 30-39.9) E66.9 Active confirmed 704609056 Problem Prostate cancer screening Z12.5 Active confirmed 773833809 Problem Disseminated candidiasis B37.7 Active confirmed 82435157 Problem 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 Active confir med 68433791 Problem Nicotine use disorder F17.200 Active confirmed 84863140 Problem Neurogenic incontinence N31.9 Active confirmed 105023655 Problem 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 Active confirmed 001527007 Problem History of NC (myocardial infarction) I25.2 Ac tive confirmed 355795455 Problem Lumbar spondylosis M47.816 Active confirmed 118059944 Problem Iron deficiency anemia, unspecified iron deficiency an emia type D50.9 Active confirmed 68257396 Problem Neuropathic pain M79.2 Active confirmed 247 251530 Problem NAFLD (nonalcoholic fatty liver disease) K76.0 Active confirmed 124710472 Problem Lumbar spondylolysis M43.06 Active confirmed 357562514 Problem Chronic pain syndrome G89.4 Active confirmed 462401564 Problem Hyperalgesia R20.8 Active confirmed 4996810 8 Problem Postlaminectomy syndrome of lumbosacral region M96 .1 Active confirmed 891789187 Problem CKD (chronic kidney disease) stage 3, GFR 30-59 ml/min N18.3 Active confirmed 246201740 Problem Ischemic cardiomyopathy I25.5 Active confirmed 322882674 Problem Recurrent UTI N39.0 Active confirmed 196109 001 Problem Gout M10.9 Active confirmed 90578955 Problem Diabetes mellitus type 2 with complications E11.8 Active confirmed 125639988 Problem Ataxia R27.0 Active confirmed 66820811 Problem Hypertension, essential I10 Active confirmed 84717869 Problem Stage III pressure ulcer of sacral region L89.153 Active confirmed 617624263 Problem Sacral decubitus ulcer, stage IV L89.154 Active confirmed 682208937 Problem Lumbar post-laminectomy syndrome M96.1 Active conf irmed 247836542 Problem Vitamin D deficiency E55.9 Active confirmed 54836443 Problem Acquired phimosis N47.1 Active confirmed 26 4593199 Problem Intervertebral disc disorder with radiculopathy of lumbar region M51.16 Active confirmed 887040732693613 Problem Gastroesophageal reflux disease without esophagitis K21.9 Active confirmed 906071098 Problem Phimosis N47.1 Active confirmed 864391956 Problem Peripheral vascular disease I73.9 Active confirmed 467519448 Problem Non-pressure chronic ulcer o f other part of left foot with unspecified severity L97.529 Active confirmed 600681293 Problem Osteoporotic compression fracture of spine with delayed healing M80.88XG Active confirmed 710229142 Problem Paronychia of great toe of right foot L03.031 Ac tive confirmed 252182015 Problem Stage 2 moderate COPD by GOLD classification J44.9 Active confirmed 539366985 Problem Constipation, chronic K59.09 Active confirmed 262257109 Problem Pressure ulcer of coccygeal region, stage 2 L89.15 2 Active confirmed Problem Contracture of lower leg joint M24.569 Active confi rmed 3799094 Problem Stage II pressure ulcer of right buttock L89.312 Active confirmed 153209997 Problem Community acquired pneumonia J18.9 Active confirme d 017368633 Problem Venous insufficiency of both lower extremities I87 .2 Active confirmed 514326180 Problem Apraxia R48.2 Active confirmed 27258406 Problem Macrocytosis D75.89 Active confirmed 9640658 00 ALLERGIES Allergen (clinical drug ingredient) Drug/Non Drug Allergy do cumented on EMR Reaction Allergy Type Onset Date Status wellbutrin agitation Non Drug Allergy Active zoloft Diarrhea Non Drug Allergy Active prozac depression Non Drug Allergy Active remeron nightmares Non Drug Allergy Active ENCOUNTERS from 1955 to 2021-05-24 Encounter Location Date Provider Diagnosis [facility] [address] [facility] [phone] [place] [address] May, Mackenzie Silva IMMUNIZATIONS Vaccine Route Administration Date Status COVID-19 dose #1 given elsewhere Unspecified IM Intramuscular [facility] 2020 Administered Influenza Pharmacy Given IM [...] Education Language: Question Answer Notes Languages spoken: Kosovan Zoroastrian: Question Answer Notes Zoroastrian 05 Uatsdin Drug and Alcohol Question Answer Notes Total [...] lower joint for 30 days fax to [phone] Mar, Active May Use - as directed [...] Information RESULTS No Results REASON FOR VISIT R/S [facility] 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 7,CRP 14 (3 at [...] May, Next Appt Details Provider Name:Mackenzie Silva, 02:15:00 PM, [address], , [place], [address], Provider Name:Warren Davila, 2021-06-22 10:45:00 AM, [address], , [place], [address], Provider Name:Theodore Christy, 2021-08-24 1 1:45:00 AM, [address] [facility], , [place], [address], Insurance Providers Payer Name Payer Address Payer Phone Insured Name Patient Relati onship to Insured Coverage Start Date Coverage End Date [facility] [id number] [facility] [phone] [id number] MACKENZIE DOLAN [id number]
--- OUTSIDE RECORDS SUMMARY | 2021-08-17 00:53 | CCD ---
Author Author [facility] Organization [facility] Address Unknown Phone Unavailable Care Team Providers Care General Handling Supervisor Name Role Phone BARAJAS, L LORI WAXER FLOOR Unavailable Unavailable BARAJAS, L LORI WAXER FLOOR Unavailable Unavailable BARAJAS, L LORI WAXER FLOOR Unavailable Unavailable BARAJAS, L LORI WAXER FLOOR Unavailable Unavailable BARAJAS, L LORI WAXER FLOOR Unavailable Unavailable BARAJAS, L LORI WAXER FLOOR Unavailable Unavailable BARAJAS, L LORI WAXER FLOOR Unavailable Unavailable BARAJAS, L LORI WAXER FLOOR Unavailable Unavailable BARAJAS, L LORI WAXER FLOOR Unavailable Unavailable BARAJAS, L LORI WAXER FLOOR Unavailable Unavailable BARAJAS, L LORI WAXER FLOOR Unavailable Unavailable BARAJAS, L LORI WAXER FLOOR Unavailable Unavailable BARAJAS, L LORI WAXER FLOOR Unavailable Unavailable BARAJAS, L LORI WAXER FLOOR Unavailable Unavailable BARAJAS, L LORI WAXER FLOOR Unavailable Unavailable BARAJAS, L LORI WAXER FLOOR Unavailable Unavailable BARAJAS, L LORI WAXER FLOOR Unavailable Unavailable BARAJAS, L LORI WAXER FLOOR Unavailable Unavailable BARAJAS, L LORI WAXER FLOOR Unavailable Unavailable BARAJAS, L LORI WAXER FLOOR Unavailable Unavailable BARAJAS, L LORI WAXER FLOOR Unavailable Unavailable BARAJAS, L LORI WAXER FLOOR Unavailable Unavailable BARAJAS, L LORI WAXER FLOOR Unavailable Unavailable BARAJAS, L LORI WAXER FLOOR Unavailable Unavailable BARAJAS, L LORI WAXER FLOOR Unavailable Unavailable BARAJAS, L LORI WAXER FLOOR Unavailable Unavailable BARAJAS, L LORI WAXER FLOOR Unavailable Unavailable BARAJAS, L LORI WAXER FLOOR Unavailable Unavailable BARAJAS, L LORI WAXER FLOOR Unavailable Unavailable BARAJAS, L LORI WAXER FLOOR Unavailable Unavailable BARAJAS, L LORI WAXER FLOOR Unavailable Unavailable BARAJAS, L LORI WAXER FLOOR Unavailable Unavailable BARAJAS, L LORI WAXER FLOOR Unavailable Unavailable BARAJAS, L LORI WAXER FLOOR Unavailable Unavailable Fons, M Xochitl KITCHEN HAND Unavailable Unavailable Fons, M Xochitl KITCHEN HAND Unavailable Unavailable Fons, M Xochitl KITCHEN HAND Unavailable Unavailable Fons, M Xochitl KITCHEN HAND Unavailable Unavailable Fons, M Xochitl KITCHEN HAND Unavailable Unavailable Fons, M Xochitl KITCHEN HAND Unavailable Unavailable Fons, M Xochitl KITCHEN HAND Unavailable Unavailable Fons, M Xochitl KITCHEN HAND Unavailable Unavailable Fons, M Xochitl KITCHEN HAND Unavailable Unavailable Fons, M Xochitl KITCHEN HAND Unavailable Unavailable Fons, M Xochitl KITCHEN HAND Unavailable Unavailable Fons, M Xochitl KITCHEN HAND Unavailable Unavailable Fons, M Xochitl KITCHEN HAND Unavailable Unavailable Fons, M Xochitl KITCHEN HAND Unavailable Unavailable Fons, M Xochitl KITCHEN HAND Unavailable Unavailable Fons, M Xochitl KITCHEN HAND Unavailable Unavailable Fons, M Xochitl KITCHEN HAND Unavailable Unavailable Fons, M Xochitl KITCHEN HAND Unavailable Unavailable Fons, M Xochitl KITCHEN HAND Unavailable Unavailable Fons, M Xochitl KITCHEN HAND Unavailable Unavailable Fons, M Xochitl KITCHEN HAND Unavailable Unavailable Fons, M Xochitl KITCHEN HAND Unavailable Unavailable Fons, M Xochitl KITCHEN HAND Unavailable Unavailable Fons, M Xochitl KITCHEN HAND Unavailable Unavailable Fons, M Xochitl KITCHEN HAND Unavailable Unavailable Fons, M Xochitl KITCHEN HAND Unavailable Unavailable Fons, M Xochitl KITCHEN HAND Unavailable Unavailable Fons, M Xochitl KITCHEN HAND Unavailable Unavailable Fons, M Xochitl KITCHEN HAND Unavailable Unavailable Fons, M Xochitl KITCHEN HAND Unavailable Unavailable Fons, M Xochitl KITCHEN HAND Unavailable Unavailable Fons, M Xochitl KITCHEN HAND Unavailable Unavailable Fons, M Xochitl KITCHEN HAND Unavailable Unavailable Fons, M Xochitl KITCHEN HAND Unavailable Unavailable Fons, M Xochitl KITCHEN HAND Unavailable Unavailable Fons, M Xochitl KITCHEN HAND Unavailable Unavailable Fons, M Xochitl KITCHEN HAND Unavailable Unavailable Fons, M Xochitl KITCHEN HAND Unavailable Unavailable Fons, M Xochitl KITCHEN HAND Unavailable Unavailable Fons, M Xochitl KITCHEN HAND Unavailable Unavailable Fons, M Xochitl KITCHEN HAND Unavailable Unavailable Fons, M Xochitl KITCHEN HAND Unavailable Unavailable Fons, M Xochitl KITCHEN HAND Unavailable Unavailable Fons, M Xochitl KITCHEN HAND Unavailable Unavailable Fons, M Xochitl KITCHEN HAND Unavailable Unavailable Fons, M Xochitl KITCHEN HAND Unavailable Unavailable Fons, M Xochitl KITCHEN HAND Unavailable Unavailable Fons, M Xochitl KITCHEN HAND Unavailable Unavailable Fons, M Xochitl KITCHEN HAND Unavailable Unavailable Fons, M Xochitl KITCHEN HAND Unavailable Unavailable Fons, M Xochitl KITCHEN HAND Unavailable Unavailable Fons, M Xochitl KITCHEN HAND Unavailable Unavailable Fons, M Xochitl KITCHEN HAND Unavailable Unavailable Re-disclosure Warning The records that you are about to access may contain information from federally-assisted alcohol or drug abuse programs. If such information is present, then the following federally mandated warning applies: This information has been disclosed to you from records protected by federal confidentiality rules (42 CFR part 2). The federal rules prohibit you from making any further disclosure of this information unless further disclosure is expressly permitted by the written consent of the person to whom it pertains or as otherwise permitted by 42 CFR part 2. A general authorization for the release of medical or other information is NOT sufficient for this purpose. The Federal rules restrict any use of the information to criminally investigate or prosecute any alcohol or drug abuse patient.The records that you are about to access may contain highly sensitive health information, the redisclosure of which is protected by Article 27-F of the [facility] Public Health law. If you continue you may have access to information: Regarding HIV / AIDS; Provided by facilities licensed or operated by the [facility] Office of Mental Health; or Provided by the [facility] Office for People With Developmental Disabilities. If such information is present, then the following [facility] mandated warning applies: This information has been disclosed to you from confidential records which are protected by state law. State law prohibits you from making any further disclosure of this information without the specific written consent of the person to whom it pertains, or as otherwise permitted by law. Any unauthorized further disclosure in violation of state law may result in a fine or fci sentence or both. A general authorization for the release of medical or other information is NOT sufficient authorization for further disc losure. Family History Family Member Name Family Member Gender Family Member Status Date o f Status Description Data Source(s) Unknown Male Problem MEDENT ([facility]) Unknown Male Problem MEDENT ([facility] () - age 62 Unknown Female Problem MEDENT ([facility], ) Encounters Encounter Providers Location Date Indications Data Source(s ) Outpatient Attender: Xochitl SPAULDING.[email or web address]-SJDaishaWILL 12:52:49 PM EST - 08/14/2021 01:34:21 PM EST [facility] Outpatient [address] [facility] [address] 08/08/2021 12:00:00 AM EST eCW1 ([facility]) Unknown [address] [facility] [place] [address] 08/06/2021 12:00:00 AM EST eCW1 ([facility]) Unknown [address] [facility] [address] 08/06/2021 12:00:00 AM EST eCW1 ([facility]) (WND STRTCH) Stretcher Required Patients [address] [place] [address] 07/30/2021 12:00:00 AM EST eCW1 ([facility]) Unknown [address] [facility] [place] [address] 07/27/2021 12:00:00 AM EST eCW1 ([facility]) Unknown [address] [facility] [place] [address] 07/16/2021 12:00:00 AM EDT eCW1 ([facility]) Unknown [address] [facility] [address] 07/13/2021 12:00:00 AM EDT eCW1 ([facility]) (WND STRTCH) Stretcher Required Patients [address] [place] [address] 07/06/2021 12:00:00 AM EDT eCW1 ([facility]) Unknown [address] [facility] [address] 07/05/2021 12:00:00 AM EDT eCW1 ([facility]) Unknown [address] [facility] [address] 07/05/2021 12:00:00 AM EDT eCW1 ([facility]) Office Visit, Est Pt., Level 4 PC [address] [place] [address] 07/04/2021 12:00:00 AM EDT eCW1 ([facility]) Unknown [address] [facility] [place] [address] 07/03/2021 12:00:00 AM EDT eCW1 ([facility]) Unknown [address] [facility] [place] [address] 07/02/2021 12:00:00 AM EDT eCW1 ([facility]) Outpatient [address] [facility] [address] 06/22/2021 12:00:00 AM EDT eCW1 ([facility]) Unknown [address] [facility] [place] [address] 06/19/2021 12:00:00 AM EDT eCW1 ([facility]) Unknown [address] [facility] [place] [address] 06/19/2021 12:00:00 AM EDT eCW1 ([facility]) Unknown [address] [facility] [place] [address] 06/15/2021 12:00:00 AM EDT eCW1 ([facility]) Outpatient IRVINGP.CT-SJP.[email or web address] 06/07/2021 10:52:28 AM EDT [facility] (JUAN FRANCISCO HERRERA) Stretcher Required Patients [address] [place] [address] 06/04/2021 12:00:00 AM EDT eCW1 ([facility]) Unknown [address] [place] [address], [place] [address] 05/24/2021 12:00:00 AM EDT eCW1 ([facility]) Unknown [address] [place] [address] Y [address] 05/17/2021 12:00:00 AM EDT eCW1 ([facility]) Outpatient Attender: LORI BARAJAS NP [facility] [place] 05/16/2021 09:00:00 AM EDT MEDENT ([facility]) Unknown [address] [facility] [place] [address] 05/10/2021 12:00:00 AM EDT eCW1 ([facility]) (WND STRTCH) Stretcher Required Patients [address] [place] [address] 05/04/2021 12:00:00 AM EDT eCW1 ([facility]) Outpatient [address] [facility] [address] 04/23/2021 12:00:00 AM EDT eCW1 ([facility]) Unknown [address] [facility] [place] [address] 04/13/2021 12:00:00 AM EDT eCW1 ([facility]) Unknown [address] [facility] [place] [address] 04/09/2021 12:00:00 AM EDT eCW1 ([facility]) (WND STRTCH) Stretcher Required Patients [address] [place] [address] 04/02/2021 12:00:00 AM EDT eCW1 ([facility]) Unknown [address] [facility] [address] 03/16/2021 12:00:00 AM EDT eCW1 ([facility]) Outpatient [address] [facility] Y [address] 03/13/2021 12:00:00 AM EDT eCW1 ([facility]) (WND STRTCH) Stretcher Required Patients [address] [place] [address] 03/05/2021 12:00:00 AM EDT eCW1 ([facility]) Outpatient CT-SJPSANGITA 03/01/2021 11:01:54 AM EDT [facility] Unknown [address] [facility] [place] [address] 02/13/2021 12:00:00 AM EDT eCW1 ([facility]) Outpatient Attender: Xochitl SHERWOOD SJP.[email or web address]-SJP.WILL 12:00:00 AM EDT - 02/09/2021 11:53:21 AM EDT [facility] (WNCarlitos HERRERA) Stretcher Required Patients [address] [place] [address] 02/05/2021 12:00:00 AM EDT eCW1 ([facility]) Unknown [address] [facility] [address] 01/11/2021 12:00:00 AM EDT eCW1 ([facility]) Outpatient [address] [facility] [address] 01/08/2021 12:00:00 AM EDT eCW1 ([facility]) Unknown [address] [facility] [place] [address] 12/26/2020 12:00:00 AM EDT eCW1 ([facility]) Unknown [address] [facility] [address] 12/15/2020 12:00:00 AM EDT eCW1 ([facility]) Unknown [address] [facility] [address] 12/14/2020 12:00:00 AM EDT eCW1 ([facility]) ([id number]) Est New Patient 61 [address] [place] [address] 12/11/2020 12:00:00 AM EDT eCW1 (Counts include 234 beds at the [facility]) Outpatient [address] [facility] [address] 12/11/2020 12:00:00 AM EDT eCW1 ([facility]) Unknown [address] [facility] [address] 12/01/2020 12:00:00 AM EDT eCW1 ([facility]) Unknown [address] [facility] [place] [address] 11/30/2020 12:00:00 AM EDT eCW1 ([facility]) Outpatient SJP.CT-SJP.SYR 11/28/2020 03:10:30 PM EDT [facility] (JUAN FRANCISCO HERRERA) Stretcher Required Patients [address] [place] [address] 11/24/2020 12:00:00 AM EST eCW1 ([facility]) Outpatient [address] [facility] [place] [address] 11/24/2020 12:00:00 AM EST eCW1 ([facility]) Unknown [address] [facility] [place] [address] 11/14/2020 12:00:00 AM EST eCW1 ([facility]) Unknown [address] [facility] [place] [address] 11/07/2020 12:00:00 AM EST eCW1 ([facility]) Unknown [address] [facility] [place] [address] 11/03/2020 12:00:00 AM EST eCW1 ([facility]) Unknown [address] [facility] [place] [address] 11/03/2020 12:00:00 AM EST eCW1 ([facility]) (MARCIAD JAVIER) Stretcher Required Patients [address] [place] [address] 10/27/2020 12:00:00 AM EST eCW1 ([facility]) Unknown [address] [facility] [place] [address] 10/18/2020 12:00:00 AM EST eCW1 ([facility]) (JUAN FRANCISCO HERRERA) Stretcher Required Patients [address] [place] [address] 09/29/2020 12:00:00 AM EST eCW1 ([facility]) TeleMedicine Phone E/M by Phys 11-20 Min [address] [place] [address] 09/13/2020 12:00:00 AM EST eCW1 ([facility]) (WND STRTCH) Stretcher Required Patients [address] [place] [address] 09/01/2020 12:00:00 AM EST eCW1 ([facility]) Unknown [address] [facility] [place] [address] 08/29/2020 12:00:00 AM EST eCW1 ([facility]) Outpatient SJP.WILL-SJP 08/18/2020 08:54:04 AM EST [facility] Outpatient SJLivier.WILL-SJP.WILL 08/17/2020 12:00:00 AM EST [facility] (WND JAVIER) Stretcher Required Patients [address] [place] [address] 08/04/2020 12:00:00 AM EST eCW1 ([facility]) Outpatient Attender: Xochitl SHERWOOD SJLivier.WILL-SJP.[email or web address] 0 12:00:00 AM EST - 08/02/2020 03:58:14 PM EST [facility] Unknown [address] [facility] [place] [address] 07/28/2020 12:00:00 AM EST eCW1 ([facility]) Unknown [address] [facility] [address] 07/21/2020 12:00:00 AM EST eCW1 ([facility]) ([id number]) For Template Bee [address] [place] [address] 07/14/2020 12:00:00 AM EDT eCW1 ([facility]) Unknown [address] [facility] [place] [address] 07/14/2020 12:00:00 AM EDT eCW1 ([facility]) Outpatient [address] [facility] [place] [address] 07/11/2020 12:00:00 AM EDT eCW1 ([facility]) Unknown [address] [facility] [place] [address] 07/11/2020 12:00:00 AM EDT eCW1 ([facility]) Unknown [address] [facility] [place] [address] 07/05/2020 12:00:00 AM EDT eCW1 ([facility]) Unknown [address] [facility] [place] [address] 06/28/2020 12:00:00 AM EDT eCW1 ([facility]) Unknown [address] [facility] [place] [address] 06/27/2020 12:00:00 AM EDT eCW1 ([facility]) Unknown [address] [facility] [place] [address] 06/22/2020 12:00:00 AM EDT eCW1 ([facility]) Outpatient [address] [facility] [place] [address] 06/22/2020 12:00:00 AM EDT eCW1 ([facility]) Immunizations Vaccine Date Status Description Data Source(s) COVID-19 VACC, MRNA(PFIZER)/PF 08/14/2021 12:00:00 AM EST completed [facility] influenza, recombinant, quadrIvalent,injectable, prese rvative free 07/04/2021 04:16:00 PM EDT completed eCW1 ([facility]) influenza, recombinant, quadrIvalent,injectable, prese rvative free 07/04/2021 04:16:00 PM EDT completed eCW1 ([facility]) influenza, recombinant, quadrIvalent,injectable, prese rvative free 07/04/2021 04:16:00 PM EDT completed eCW1 ([facility]) influenza, recombinant, quadrIvalent,injectable, prese rvative free 07/04/2021 04:16:00 PM EDT completed eCW1 ([facility]) influenza, recombinant, quadrIvalent,injectable, prese rvative free 07/04/2021 04:16:00 PM EDT completed eCW1 ([facility]) influenza, recombinant, quadrIvalent,injectable, prese rvative free 07/04/2021 04:16:00 PM EDT completed eCW1 ([facility]) influenza, recombinant, quadrIvalent,injectable, prese rvative free 07/04/2021 04:16:00 PM EDT completed eCW1 ([facility]) influenza, recombinant, quadrIvalent,injectable, prese rvative free 07/04/2021 04:16:00 PM EDT completed eCW1 ([facility]) influenza, recombinant, quadrIvalent,injectable, prese rvative free 07/04/2021 04:16:00 PM EDT completed eCW1 ([facility]) influenza, recombinant, quadrIvalent,injectable, prese rvative free 07/04/2021 04:16:00 PM EDT completed eCW1 ([facility]) influenza, recombinant, quadrIvalent,injectable, prese rvative free 07/04/2021 04:16:00 PM EDT completed eCW1 ([facility]) COVID-19 VACCINE Pfizer 12/15/2020 12:00:00 AM EDT completed [employer] Vaccine Series Complete: YESThis Data wa s Submitted to [facility] Via [employer]. COVID-19 dose #1 given elsewhere Unspecified 11/24/2020 05:4 1:00 PM EST completed eCW1 ([facility]) COVID-19 dose #1 given elsewhere Unspecified 11/24/2020 05:4 1:00 PM EST completed eCW1 ([facility]) COVID-19 dose #1 given elsewhere Unspecified 11/24/2020 05:4 1:00 PM EST completed eCW1 ([facility]) COVID-19 dose #1 given elsewhere Unspecified 11/24/2020 05:4 1:00 PM EST completed eCW1 ([facility]) COVID-19 dose #1 given elsewhere Unspecified 11/24/2020 05:4 1:00 PM EST completed eCW1 ([facility]) COVID-19 dose #1 given elsewhere Unspecified 11/24/2020 05:4 1:00 PM EST completed eCW1 ([facility]) COVID-19 dose #1 given elsewhere Unspecified 11/24/2020 05:4 1:00 PM EST completed eCW1 ([facility]) COVID-19 dose #1 given elsewhere Unspecified 11/24/2020 05:4 1:00 PM EST completed eCW1 ([facility]) COVID-19 dose #1 given elsewhere Unspecified 11/24/2020 05:4 1:00 PM EST completed eCW1 ([facility]) COVID-19 dose #1 given elsewhere Unspecified 11/24/2020 05:4 1:00 PM EST completed eCW1 ([facility]) COVID-19 dose #1 given elsewhere Unspecified 11/24/2020 05:4 1:00 PM EST completed eCW1 ([facility]) COVID-19 dose #1 given elsewhere Unspecified 11/24/2020 05:4 1:00 PM EST completed eCW1 ([facility]) COVID-19 dose #1 given elsewhere Unspecified 11/24/2020 05:4 1:00 PM EST completed eCW1 ([facility]) COVID-19 dose #1 given elsewhere Unspecified 11/24/2020 05:4 1:00 PM EST completed eCW1 ([facility]) COVID-19 dose #1 given elsewhere Unspecified 11/24/2020 05:4 1:00 PM EST completed eCW1 ([facility]) COVID-19 dose #1 given elsewhere Unspecified 11/24/2020 05:4 1:00 PM EST completed eCW1 ([facility]) COVID-19 dose #1 given elsewhere Unspecified 11/24/2020 05:4 1:00 PM EST completed eCW1 ([facility]) COVID-19 dose #1 given elsewhere Unspecified 11/24/2020 05:4 1:00 PM EST completed eCW1 ([facility]) COVID-19 dose #1 given elsewhere Unspecified 11/24/2020 05:4 1:00 PM EST completed eCW1 ([facility]) COVID-19 dose #1 given elsewhere Unspecified 11/24/2020 05:4 1:00 PM EST completed eCW1 ([facility]) COVID-19 dose #1 given elsewhere Unspecified 11/24/2020 05:4 1:00 PM EST completed eCW1 ([facility]) COVID-19 dose #1 given elsewhere Unspecified 11/24/2020 05:4 1:00 PM EST completed eCW1 ([facility]) COVID-19 dose #1 given elsewhere Unspecified 11/24/2020 05:4 1:00 PM EST completed eCW1 ([facility]) COVID-19 dose #1 given elsewhere Unspecified 11/24/2020 05:4 1:00 PM EST completed eCW1 ([facility]) COVID-19 dose #1 given elsewhere Unspecified 11/24/2020 05:4 1:00 PM EST completed eCW1 ([facility]) COVID-19 dose #1 given elsewhere Unspecified 11/24/2020 05:4 1:00 PM EST completed eCW1 ([facility]) COVID-19 dose #1 given elsewhere Unspecified 11/24/2020 05:4 1:00 PM EST completed eCW1 ([facility]) COVID-19 dose #1 given elsewhere Unspecified 11/24/2020 05:4 1:00 PM EST completed eCW1 ([facility]) COVID-19 dose #1 given elsewhere Unspecified 11/24/2020 05:4 1:00 PM EST completed eCW1 ([facility]) COVID-19 dose #1 given elsewhere Unspecified 11/24/2020 05:4 1:00 PM EST completed eCW1 ([facility]) COVID-19 dose #1 given elsewhere Unspecified 11/24/2020 05:4 1:00 PM EST completed eCW1 ([facility]) COVID-19 dose #1 given elsewhere Unspecified 11/24/2020 05:4 1:00 PM EST completed eCW1 ([facility]) COVID-19 dose #1 given elsewhere Unspecified 11/24/2020 05:4 1:00 PM EST completed eCW1 ([facility]) COVID-19 dose #1 given elsewhere Unspecified 11/24/2020 05:4 1:00 PM EST completed eCW1 ([facility]) COVID-19 dose #1 given elsewhere Unspecified 11/24/2020 05:4 1:00 PM EST completed eCW1 ([facility]) COVID-19 dose #1 given elsewhere Unspecified 11/24/2020 05:4 1:00 PM EST completed eCW1 ([facility]) COVID-19 dose #1 given elsewhere Unspecified 11/24/2020 05:4 1:00 PM EST completed eCW1 ([facility]) COVID-19 dose #1 given elsewhere Unspecified 11/24/2020 05:4 1:00 PM EST completed eCW1 ([facility]) COVID-19 dose #1 given elsewhere Unspecified 11/24/2020 05:4 1:00 PM EST completed eCW1 ([facility]) COVID-19 dose #1 given elsewhere Unspecified 11/24/2020 05:4 1:00 PM EST completed eCW1 ([facility]) COVID-19 dose #1 given elsewhere Unspecified 11/24/2020 05:4 1:00 PM EST completed eCW1 ([facility]) COVID-19 dose #1 given elsewhere Unspecified 11/24/2020 05:4 1:00 PM EST completed eCW1 ([facility]) COVID-19 VACCINE Pfizer 11/24/2020 12:00:00 AM EST completed [employer] Vaccine Series Complete: NOThis Data was Submitted to [facility] Via [employer]. influenza, recombinant, quadrIvalent,injectable, prese rvative free 07/11/2020 05:24:00 PM EDT completed eCW1 ([facility]) influenza, recombinant, quadrIvalent,injectable, prese rvative free 07/11/2020 05:24:00 PM EDT completed eCW1 ([facility]) influenza, recombinant, quadrIvalent,injectable, prese rvative free 07/11/2020 05:24:00 PM EDT completed eCW1 ([facility]) influenza, recombinant, quadrIvalent,injectable, prese rvative free 07/11/2020 05:24:00 PM EDT completed eCW1 ([facility]) influenza, recombinant, quadrIvalent,injectable, prese rvative free 07/11/2020 05:24:00 PM EDT completed eCW1 ([facility]) influenza, recombinant, quadrIvalent,injectable, prese rvative free 07/11/2020 05:24:00 PM EDT completed eCW1 ([facility]) influenza, recombinant, quadrIvalent,injectable, prese rvative free 07/11/2020 05:24:00 PM EDT completed eCW1 ([facility]) influenza, recombinant, quadrIvalent,injectable, prese rvative free 07/11/2020 05:24:00 PM EDT completed eCW1 ([facility]) influenza, recombinant, quadrIvalent,injectable, prese rvative free 07/11/2020 05:24:00 PM EDT completed eCW1 ([facility]) influenza, recombinant, quadrIvalent,injectable, prese rvative free 07/11/2020 05:24:00 PM EDT completed eCW1 ([facility]) influenza, recombinant, quadrIvalent,injectable, prese rvative free 07/11/2020 05:24:00 PM EDT completed eCW1 ([facility]) influenza, recombinant, quadrIvalent,injectable, prese rvative free 07/11/2020 05:24:00 PM EDT completed eCW1 ([facility]) influenza, recombinant, quadrIvalent,injectable, prese rvative free 07/11/2020 05:24:00 PM EDT completed eCW1 ([facility]) influenza, recombinant, quadrIvalent,injectable, prese rvative free 07/11/2020 05:24:00 PM EDT completed eCW1 ([facility]) influenza, recombinant, quadrIvalent,injectable, prese rvative free 07/11/2020 05:24:00 PM EDT completed eCW1 ([facility]) influenza, recombinant, quadrIvalent,injectable, prese rvative free 07/11/2020 05:24:00 PM EDT completed eCW1 ([facility]) influenza, recombinant, quadrIvalent,injectable, prese rvative free 07/11/2020 05:24:00 PM EDT completed eCW1 ([facility]) influenza, recombinant, quadrIvalent,injectable, prese rvative free 07/11/2020 05:24:00 PM EDT completed eCW1 ([facility]) influenza, recombinant, quadrIvalent,injectable, prese rvative free 07/11/2020 05:24:00 PM EDT completed eCW1 ([facility]) influenza, recombinant, quadrIvalent,injectable, prese rvative free 07/11/2020 05:24:00 PM EDT completed eCW1 ([facility]) influenza, recombinant, quadrIvalent,injectable, prese rvative free 07/11/2020 05:24:00 PM EDT completed eCW1 ([facility]) influenza, recombinant, quadrIvalent,injectable, prese rvative free 07/11/2020 05:24:00 PM EDT completed eCW1 ([facility]) influenza, recombinant, quadrIvalent,injectable, prese rvative free 07/11/2020 05:24:00 PM EDT completed eCW1 ([facility]) influenza, recombinant, quadrIvalent,injectable, prese rvative free 07/11/2020 05:24:00 PM EDT completed eCW1 ([facility]) influenza, recombinant, quadrIvalent,injectable, prese rvative free 07/11/2020 05:24:00 PM EDT completed eCW1 ([facility]) influenza, recombinant, quadrIvalent,injectable, prese rvative free 07/11/2020 05:24:00 PM EDT completed eCW1 ([facility]) influenza, recombinant, quadrIvalent,injectable, prese rvative free 07/11/2020 05:24:00 PM EDT completed eCW1 ([facility]) influenza, recombinant, quadrIvalent,injectable, prese rvative free 07/11/2020 05:24:00 PM EDT completed eCW1 ([facility]) influenza, recombinant, quadrIvalent,injectable, prese rvative free 07/11/2020 05:24:00 PM EDT completed eCW1 ([facility]) influenza, recombinant, quadrIvalent,injectable, prese rvative free 07/11/2020 05:24:00 PM EDT completed eCW1 ([facility]) influenza, recombinant, quadrIvalent,injectable, prese rvative free 07/11/2020 05:24:00 PM EDT completed eCW1 ([facility]) influenza, recombinant, quadrIvalent,injectable, prese rvative free 07/11/2020 05:24:00 PM EDT completed eCW1 ([facility]) influenza, recombinant, quadrIvalent,injectable, prese rvative free 07/11/2020 05:24:00 PM EDT completed eCW1 ([facility]) influenza, recombinant, quadrIvalent,injectable, prese rvative free 07/11/2020 05:24:00 PM EDT completed eCW1 ([facility]) influenza, recombinant, quadrIvalent,injectable, prese rvative free 07/11/2020 05:24:00 PM EDT completed eCW1 ([facility]) influenza, recombinant, quadrIvalent,injectable, prese rvative free 07/11/2020 05:24:00 PM EDT completed eCW1 ([facility]) influenza, recombinant, quadrIvalent,injectable, prese rvative free 07/11/2020 05:24:00 PM EDT completed eCW1 ([facility]) influenza, recombinant, quadrIvalent,injectable, prese rvative free 07/11/2020 05:24:00 PM EDT completed eCW1 ([facility]) influenza, recombinant, quadrIvalent,injectable, prese rvative free 07/11/2020 05:24:00 PM EDT completed eCW1 ([facility]) influenza, recombinant, quadrIvalent,injectable, prese rvative free 07/11/2020 05:24:00 PM EDT completed eCW1 ([facility]) influenza, recombinant, quadrIvalent,injectable, prese rvative free 07/11/2020 05:24:00 PM EDT completed eCW1 ([facility]) influenza, recombinant, quadrIvalent,injectable, prese rvative free 07/11/2020 05:24:00 PM EDT completed eCW1 ([facility]) influenza, recombinant, quadrIvalent,injectable, prese rvative free 07/11/2020 05:24:00 PM EDT completed eCW1 ([facility]) influenza, recombinant, quadrIvalent,injectable, prese rvative free 07/11/2020 05:24:00 PM EDT completed eCW1 ([facility]) influenza, recombinant, quadrIvalent,injectable, prese rvative free 07/11/2020 05:24:00 PM EDT completed eCW1 ([facility]) influenza, recombinant, quadrIvalent,injectable, prese rvative free 07/11/2020 05:24:00 PM EDT completed eCW1 ([facility]) influenza, recombinant, quadrIvalent,injectable, prese rvative free 07/11/2020 05:24:00 PM EDT completed eCW1 ([facility]) influenza, recombinant, quadrIvalent,injectable, prese rvative free 07/11/2020 05:24:00 PM EDT completed eCW1 ([facility]) influenza, recombinant, quadrIvalent,injectable, prese rvative free 07/11/2020 05:24:00 PM EDT completed eCW1 ([facility]) influenza, recombinant, quadrIvalent,injectable, prese rvative free 07/11/2020 05:24:00 PM EDT completed eCW1 ([facility]) influenza, recombinant, quadrIvalent,injectable, prese rvative free 07/11/2020 05:24:00 PM EDT completed eCW1 ([facility]) influenza, recombinant, quadrIvalent,injectable, prese rvative free 07/11/2020 05:24:00 PM EDT completed eCW1 ([facility]) influenza, recombinant, quadrIvalent,injectable, prese rvative free 07/11/2020 05:24:00 PM EDT completed eCW1 ([facility]) influenza, recombinant, quadrIvalent,injectable, prese rvative free 07/11/2020 05:24:00 PM EDT completed eCW1 ([facility]) influenza, recombinant, quadrIvalent,injectable, prese rvative free 07/11/2020 05:24:00 PM EDT completed eCW1 ([facility]) influenza, recombinant, quadrIvalent,injectable, prese rvative free 07/11/2020 05:24:00 PM EDT completed eCW1 ([facility]) influenza, recombinant, quadrIvalent,injectable, prese rvative free 07/11/2020 05:24:00 PM EDT completed eCW1 ([facility]) influenza, recombinant, quadrIvalent,injectable, prese rvative free 07/11/2020 05:24:00 PM EDT completed eCW1 ([facility]) influenza, recombinant, quadrIvalent,injectable, prese rvative free 07/11/2020 05:24:00 PM EDT completed eCW1 ([facility]) influenza, recombinant, quadrIvalent,injectable, prese rvative free 07/11/2020 05:24:00 PM EDT completed eCW1 ([facility]) influenza, recombinant, quadrIvalent,injectable, prese rvative free 07/11/2020 05:24:00 PM EDT completed eCW1 ([facility]) Medications Medication Brand Name Start Date Product Form Dose Route Admi nistrative Instructions Pharmacy Instructions Status Indications Reaction Description Data Source(s) 81 mg 08/08/2021 12:00:00 AM EST tablet,chewable 90 CHEW ONE TABLET BY MOUTH EVERY DAY CHEW ONE TABLET BY MOUTH EVERY DAY SOLD: 08/08/2021 [facility] 10 mg 07/14/2021 12:00:00 AM EDT tablet 60 TAKE ONE TABLET BY MOUTH EVERY 12 HOURS NEEDED FOR SEVERE PAIN MAXIMUM DAILY DOSE = TWO TABLETS TAKE ONE TABLET BY MOUTH EVERY 12 HOURS NEEDED FOR SEVERE PAIN MAXIMUM DAILY DOSE = TWO TABLETS SOLD: 07/15/2021 [facility] 18-400 mg-mcg 07/05/2021 12:00:00 AM EDT tablet 25 TAKE ONE TABLET BY MOUTH EVERY DAY TAKE ONE TABLET BY MOUTH EVERY DAY SOLD: 07/08/2021 [facility] 18-400 mg-mcg 07/05/2021 12:00:00 AM EDT tablet 30 TAKE ONE TABLET BY MOUTH EVERY DAY TAKE ONE TABLET BY MOUTH EVERY DAY SOLD: 08/03/2021 [facility] 600 mg 07/05/2021 12:00:00 AM EDT tablet 90 TAKE ONE TABLET BY MOUTH THREE TIMES A DAY TAKE ONE TABLET BY MOUTH THREE TIMES A DAY SOLD: 08/02/2021 [facility] 600 mg 07/05/2021 12:00:00 AM EDT tablet 90 TAKE ONE TABLET BY MOUTH THREE TIMES A DAY TAKE ONE TABLET BY MOUTH THREE TIMES A DAY SOLD: 07/06/2021 [facility] NITROFURANTOIN, MACROCRYSTALS 25 MG / Ni trofurantoin, Monohydrate 75 MG Oral Capsule [Macrobid] Macrobid 100 MG Macrobid 100 MG 07/04/2021 12:00:00 AM EDT 1.0 {capsule_with_food} active Macrobid 100 MG eCW1 ([facility]) NITROFURANTOIN, MACROCRYSTALS 25 MG / Ni trofurantoin, Monohydrate 75 MG Oral Capsule [Macrobid] Macrobid 100 MG Macrobid 100 MG 07/04/2021 12:00:00 AM EDT 1.0 {capsule_with_food} active Macrobid 100 MG eCW1 ([facility]) NITROFURANTOIN, MACROCRYSTALS 25 MG / Ni trofurantoin, Monohydrate 75 MG Oral Capsule [Macrobid] Macrobid 100 MG Macrobid 100 MG 07/04/2021 12:00:00 AM EDT 1.0 {capsule_with_food} active Macrobid 100 MG eCW1 ([facility]) NITROFURANTOIN, MACROCRYSTALS 25 MG / Ni trofurantoin, Monohydrate 75 MG Oral Capsule 100 mg NITROFURANTOIN MONOHYD/M-CRYST 07/04/2021 12:00:00 AM EDT ca psule 20 TAKE ONE CAPSULE BY MOUTH TWICE A DAY WITH FOOD TAKE ONE CAPSULE BY MOUTH TWICE A DAY WITH FOOD SOLD: 07/04/2021 [facility] NITROFURANTOIN, MACROCRYSTALS 25 MG / Ni trofurantoin, Monohydrate 75 MG Oral Capsule [Macrobid] Macrobid 100 MG Macrobid 100 MG 07/04/2021 12:00:00 AM EDT 1.0 {capsule_with_food} active Macrobid 100 MG eCW1 ([facility]) NITROFURANTOIN, MACROCRYSTALS 25 MG / Ni trofurantoin, Monohydrate 75 MG Oral Capsule [Macrobid] Macrobid 100 MG Macrobid 100 MG 07/04/2021 12:00:00 AM EDT 1.0 {capsule_with_food} active Macrobid 100 MG eCW1 ([facility]) NITROFURANTOIN, MACROCRYSTALS 25 MG / Ni trofurantoin, Monohydrate 75 MG Oral Capsule [Macrobid] Macrobid 100 MG Macrobid 100 MG 07/04/2021 12:00:00 AM EDT 1.0 {capsule_with_food} active Macrobid 100 MG eCW1 ([facility]) NITROFURANTOIN, MACROCRYSTALS 25 MG / Ni trofurantoin, Monohydrate 75 MG Oral Capsule [Macrobid] Macrobid 100 MG Macrobid 100 MG 07/04/2021 12:00:00 AM EDT 1.0 {capsule_with_food} active Macrobid 100 MG eCW1 ([facility]) NITROFURANTOIN, MACROCRYSTALS 25 MG / Ni trofurantoin, Monohydrate 75 MG Oral Capsule [Macrobid] Macrobid 100 MG Macrobid 100 MG 07/04/2021 12:00:00 AM EDT 1.0 {capsule_with_food} active Macrobid 100 MG eCW1 ([facility]) NITROFURANTOIN, MACROCRYSTALS 25 MG / Ni trofurantoin, Monohydrate 75 MG Oral Capsule [Macrobid] Macrobid 100 MG Macrobid 100 MG 07/04/2021 12:00:00 AM EDT 1.0 {capsule_with_food} active Macrobid 100 MG eCW1 ([facility]) NITROFURANTOIN, MACROCRYSTALS 25 MG / Ni trofurantoin, Monohydrate 75 MG Oral Capsule [Macrobid] Macrobid 100 MG Macrobid 100 MG 07/04/2021 12:00:00 AM EDT 1.0 {capsule_with_food} active Macrobid 100 MG eCW1 ([facility]) NITROFURANTOIN, MACROCRYSTALS 25 MG / Ni trofurantoin, Monohydrate 75 MG Oral Capsule [Macrobid] Macrobid 100 MG Macrobid 100 MG 07/04/2021 12:00:00 AM EDT 1.0 {capsule_with_food} active Macrobid 100 MG eCW1 ([facility]) 10 mg 06/28/2021 12:00:00 AM EDT tablet 30 TAKE ONE TABLET BY MOUTH EVERY DAY TAKE ONE TABLET BY MOUTH EVERY DAY SOLD: 06/28/2021 [facility] Rosuvastatin calcium 10 MG Oral Tablet ROSUVASTATIN CALCIUM 06/28/2021 12:00:00 AM EDT tablet 30 TAKE ONE TABLET BY MOUTH TAKE ONE TABLET BY MOUTH EVERY DAY SOLD: 07/26/2021 [facility] Oxycodone Hydrochloride 10 MG Oral Tablet oxyCODONE HC l 10 MG oxyCODONE HCl 10 MG 06/22/2021 12:00:00 AM EDT 1.0 {tablet_as_needed} active oxyCODONE HCl 10 MG eCW1 ([facility]) Oxycodone Hydrochloride 10 MG Oral Tablet oxyCODONE HC l 10 MG oxyCODONE HCl 10 MG 06/22/2021 12:00:00 AM EDT 1.0 {tablet_as_needed} active oxyCODONE HCl 10 MG eCW1 ([facility]) Oxycodone Hydrochloride 10 MG Oral Tablet oxyCODONE HC l 10 MG oxyCODONE HCl 10 MG 06/22/2021 12:00:00 AM EDT 1.0 {tablet_as_needed} active oxyCODONE HCl 10 MG eCW1 ([facility]) Oxycodone Hydrochloride 10 MG Oral Tablet oxyCODONE HC l 10 MG oxyCODONE HCl 10 MG 06/22/2021 12:00:00 AM EDT 1.0 {tablet_as_needed} active oxyCODONE HCl 10 MG eCW1 ([facility]) Oxycodone Hydrochloride 10 MG Oral Tablet oxyCODONE HC l 10 MG oxyCODONE HCl 10 MG 06/22/2021 12:00:00 AM EDT 1.0 {tablet_as_needed} active oxyCODONE HCl 10 MG eCW1 ([facility]) Oxycodone Hydrochloride 10 MG Oral Tablet oxyCODONE HC l 10 MG oxyCODONE HCl 10 MG 06/22/2021 12:00:00 AM EDT 1.0 {tablet_as_needed} active oxyCODONE HCl 10 MG eCW1 ([facility]) Oxycodone Hydrochloride 10 MG Oral Tablet oxyCODONE HC l 10 MG oxyCODONE HCl 10 MG 06/22/2021 12:00:00 AM EDT 1.0 {tablet_as_needed} active oxyCODONE HCl 10 MG eCW1 ([facility]) Oxycodone Hydrochloride 10 MG Oral Tablet oxyCODONE HC l 10 MG oxyCODONE HCl 10 MG 06/22/2021 12:00:00 AM EDT 1.0 {tablet_as_needed} active oxyCODONE HCl 10 MG eCW1 ([facility]) Oxycodone Hydrochloride 10 MG Oral Tablet oxyCODONE HC l 10 MG oxyCODONE HCl 10 MG 06/22/2021 12:00:00 AM EDT 1.0 {tablet_as_needed} active oxyCODONE HCl 10 MG eCW1 ([facility]) Oxycodone Hydrochloride 10 MG Oral Tablet oxyCODONE HC l 10 MG oxyCODONE HCl 10 MG 06/22/2021 12:00:00 AM EDT 1.0 {tablet_as_needed} active oxyCODONE HCl 10 MG eCW1 ([facility]) Oxycodone Hydrochloride 10 MG Oral Tablet oxyCODONE HC l 10 MG oxyCODONE HCl 10 MG 06/22/2021 12:00:00 AM EDT 1.0 {tablet_as_needed} active oxyCODONE HCl 10 MG eCW1 ([facility]) Oxycodone Hydrochloride 10 MG Oral Tablet oxyCODONE HC l 10 MG oxyCODONE HCl 10 MG 06/22/2021 12:00:00 AM EDT 1.0 {tablet_as_needed} active oxyCODONE HCl 10 MG eCW1 ([facility]) Oxycodone Hydrochloride 10 MG Oral Tablet oxyCODONE HC l 10 MG oxyCODONE HCl 10 MG 06/22/2021 12:00:00 AM EDT 1.0 {tablet_as_needed} active oxyCODONE HCl 10 MG eCW1 ([facility]) Oxycodone Hydrochloride 10 MG Oral Tablet oxyCODONE HC l 10 MG oxyCODONE HCl 10 MG 06/22/2021 12:00:00 AM EDT 1.0 {tablet_as_needed} active oxyCODONE HCl 10 MG eCW1 ([facility]) Paroxetine Hydrochloride 40 MG Oral Tablet PAROXETINE HCL 06/21/2021 12:00:00 AM EDT tablet 30 TAKE ONE TABLET BY MOUTH ADRIANA RY MORNING TAKE ONE TABLET BY MOUTH EVERY MORNING SOLD: 06/21/2021 [facility] Paroxetine Hydrochloride 40 MG Oral Tablet PAROXETINE HCL 06/21/2021 12:00:00 AM EDT tablet 30 TAKE ONE TABLET BY MOUTH ADRIANA RY MORNING TAKE ONE TABLET BY MOUTH EVERY MORNING SOLD: 07/18/2021 [facility] 10 mg 06/18/2021 12:00:00 AM EDT tablet 60 TAKE ONE TABLET BY MOUTH EVERY DAY NEEDED FOR SEVERE PAIN MAX DAILY DOSE OF 2 TABLETS TAKE ONE TABLET BY MOUTH EVERY DAY NEEDED FOR SEVERE PAIN MAX DAILY DOSE OF 2 TABLETS SOLD: 06/18/2021 [facility] Oxycodone Hydrochloride 10 MG Oral Tablet oxyCODONE HC l 10 MG oxyCODONE HCl 10 MG 06/15/2021 12:00:00 AM EDT 1.0 {tablet_as_needed} active oxyCODONE HCl 10 MG eCW1 ([facility]) Oxycodone Hydrochloride 10 MG Oral Tablet oxyCODONE HC l 10 MG oxyCODONE HCl 10 MG 06/15/2021 12:00:00 AM EDT 1.0 {tablet_as_needed} active oxyCODONE HCl 10 MG eCW1 ([facility]) Oxycodone Hydrochloride 10 MG Oral Tablet oxyCODONE HC l 10 MG oxyCODONE HCl 10 MG 06/15/2021 12:00:00 AM EDT 1.0 {tablet_as_needed} active oxyCODONE HCl 10 MG eCW1 ([facility]) 10 mg 05/22/2021 12:00:00 AM EDT tablet 60 1 TABLET NEEDED BY MOUTH EVERY 12 HOURS IN THE EVENING PAIN MAXIMUM DAILY DOSE = 2 1 TABLET NEEDED BY MOUTH EVERY 12 HOURS IN THE EVENING PAIN MAXIMUM DAILY DOSE = 2 SOLD: 05/23/2021 [facility] Oxycodone Hydrochloride 10 MG Oral Tablet oxyCODONE HC l 10 MG oxyCODONE HCl 10 MG 05/21/2021 12:00:00 AM EDT 1.0 {tablet_as_needed} suspended oxyCODONE HCl 10 MG eCW1 ([facility]) Oxycodone Hydrochloride 10 MG Oral Tablet oxyCODONE HC l 10 MG oxyCODONE HCl 10 MG 05/21/2021 12:00:00 AM EDT 1.0 {tablet_as_needed} active oxyCODONE HCl 10 MG eCW1 ([facility]) Oxycodone Hydrochloride 10 MG Oral Tablet oxyCODONE HC l 10 MG oxyCODONE HCl 10 MG 05/21/2021 12:00:00 AM EDT 1.0 {tablet_as_needed} active oxyCODONE HCl 10 MG eCW1 ([facility]) Oxycodone Hydrochloride 10 MG Oral Tablet oxyCODONE HC l 10 MG oxyCODONE HCl 10 MG 05/21/2021 12:00:00 AM EDT 1.0 {tablet_as_needed} suspended oxyCODONE HCl 10 MG eCW1 ([facility]) Oxycodone Hydrochloride 10 MG Oral Tablet oxyCODONE HC l 10 MG oxyCODONE HCl 10 MG 05/21/2021 12:00:00 AM EDT 1.0 {tablet_as_needed} active oxyCODONE HCl 10 MG eCW1 ([facility]) Oxycodone Hydrochloride 10 MG Oral Tablet oxyCODONE HC l 10 MG oxyCODONE HCl 10 MG 05/21/2021 12:00:00 AM EDT 1.0 {tablet_as_needed} active oxyCODONE HCl 10 MG eCW1 ([facility]) Oxycodone Hydrochloride 10 MG Oral Tablet oxyCODONE HC l 10 MG oxyCODONE HCl 10 MG 05/21/2021 12:00:00 AM EDT 1.0 {tablet_as_needed} suspended oxyCODONE HCl 10 MG eCW1 ([facility]) Oxycodone Hydrochloride 10 MG Oral Tablet oxyCODONE HC l 10 MG oxyCODONE HCl 10 MG 05/21/2021 12:00:00 AM EDT 1.0 {tablet_as_needed} active oxyCODONE HCl 10 MG eCW1 ([facility]) Oxycodone Hydrochloride 10 MG Oral Tablet oxyCODONE HC l 10 MG oxyCODONE HCl 10 MG 05/21/2021 12:00:00 AM EDT 1.0 {tablet_as_needed} active oxyCODONE HCl 10 MG eCW1 ([facility]) LANOLIN ALCOHOL/MO/W.PET/CERES 05/12/2021 12:00:00 AM EDT cr eam 113 USE DIRECTED TO LOWER LEGS FROM THE KNEES DOWN USE DIRECTED TO LOWER LEGS FROM THE KNEES DOWN SOLD: 08/10/2021 [facility] LANOLIN ALCOHOL/MO/W.PET/CERES 05/12/2021 12:00:00 AM EDT cr eam 113 USE DIRECTED TO LOWER LEGS FROM THE KNEES DOWN USE DIRECTED TO LOWER LEGS FROM THE KNEES DOWN SOLD: 05/13/2021 [facility] LANOLIN ALCOHOL/MO/W.PET/CERES 05/12/2021 12:00:00 AM EDT cr eam 113 USE DIRECTED TO LOWER LEGS FROM THE KNEES DOWN USE DIRECTED TO LOWER LEGS FROM THE KNEES DOWN SOLD: 07/12/2021 [facility] LANOLIN ALCOHOL/MO/W.PET/CERES 05/12/2021 12:00:00 AM EDT cr eam 113 USE DIRECTED TO LOWER LEGS FROM THE KNEES DOWN USE DIRECTED TO LOWER LEGS FROM THE KNEES DOWN SOLD: 06/13/2021 [facility] Rosuvastatin calcium 10 MG Oral Tablet ROSUVASTATIN CALCIUM 04/27/2021 12:00:00 AM EDT tablet 30 TAKE ONE TABLET BY MOUTH ONC E DAILY TAKE ONE TABLET BY MOUTH ONCE DAILY SOLD: 04/27/2021 [facility] 2.5 mg 04/26/2021 12:00:00 AM EDT tablet 90 TAKE ONE TABLET BY MOUTH EVERY MORNING TAKE ONE TABLET BY MOUTH EVERY MORNING SOLD: 04/26/2021 [facility] 2.5 mg 04/26/2021 12:00:00 AM EDT tablet 90 TAKE ONE TABLET BY MOUTH EVERY MORNING TAKE ONE TABLET BY MOUTH EVERY MORNING SOLD: 07/23/2021 [facility] 10 mg 04/17/2021 12:00:00 AM EDT tablet 60 TAKE ONE TABLET BY MOUTH EVERY 12 HOURS NEEDED FOR PAIN MAXIMUM DAILY DOSE = TWO TABLETS TAKE ONE TABLET BY MOUTH EVERY 12 HOURS NEEDED FOR PAIN MAXIMUM DAILY DOSE = TWO TABLETS SOLD: 04/17/2021 [facility] 600 mg 04/17/2021 12:00:00 AM EDT tablet 270 TAKE ONE TABLET BY MOUTH THREE TIMES A DAY TAKE ONE TABLET BY MOUTH THREE TIMES A DAY SOLD: 04/17/2021 [facility] 200 mg 04/16/2021 12:00:00 AM EDT tablet 180 TAKE TWO TABLETS BY MOUTH EVERY DAY TAKE TWO TABLETS BY MOUTH EVERY DAY SOLD: 04/16/2021 [facility] 200 mg 04/16/2021 12:00:00 AM EDT tablet 60 TAKE TWO TABLETS BY MOUTH EVERY DAY TAKE TWO TABLETS BY MOUTH EVERY DAY SOLD: 07/19/2021 [facility] pantoprazole 40 MG Delayed Release Oral Tablet PANTOPRAZOLE SODIUM 04/14/2021 12:00:00 AM EDT tablet,delayed release (DR/EC) 30 T MAG ONE TABLET BY MOUTH EVERY DAY TAKE ONE TABLET BY MOUTH EVERY DAY SOLD: 04/15/2021 [facility] pantoprazole 40 MG Delayed Release Oral Tablet PANTOPRAZOLE SODIUM 04/14/2021 12:00:00 AM EDT tablet,delayed release (DR/EC) 30 T MAG ONE TABLET BY MOUTH EVERY DAY TAKE ONE TABLET BY MOUTH EVERY DAY SOLD: 07/23/2021 [facility] pantoprazole 40 MG Delayed Release Oral Tablet PANTOPRAZOLE SODIUM 04/14/2021 12:00:00 AM EDT tablet,delayed release (DR/EC) 30 T MAG ONE TABLET BY MOUTH EVERY DAY TAKE ONE TABLET BY MOUTH EVERY DAY SOLD: 06/03/2021 [facility] Oxycodone Hydrochloride 10 MG Oral Tablet oxyCODONE HC l 10 MG oxyCODONE HCl 10 MG 04/13/2021 12:00:00 AM EDT 1.0 {tablet_as_needed} active oxyCODONE HCl 10 MG eCW1 ([facility]) Oxycodone Hydrochloride 10 MG Oral Tablet oxyCODONE HC l 10 MG oxyCODONE HCl 10 MG 04/13/2021 12:00:00 AM EDT 1.0 {tablet_as_needed} active oxyCODONE HCl 10 MG eCW1 ([facility]) Oxycodone Hydrochloride 10 MG Oral Tablet oxyCODONE HC l 10 MG oxyCODONE HCl 10 MG 04/13/2021 12:00:00 AM EDT 1.0 {tablet_as_needed} active oxyCODONE HCl 10 MG eCW1 ([facility]) 300 mg 04/13/2021 12:00:00 AM EDT capsule 14 TAKE ONE CAPSULE BY MOUTH TWICE A DAY TAKE ONE CAPSULE BY MOUTH TWICE A DAY SOLD: 04/13/2021 [facility] Oxycodone Hydrochloride 10 MG Oral Tablet oxyCODONE HC l 10 MG oxyCODONE HCl 10 MG 04/13/2021 12:00:00 AM EDT 1.0 {tablet_as_needed} active oxyCODONE HCl 10 MG eCW1 ([facility]) 500 mg 04/13/2021 12:00:00 AM EDT tablet 60 TAKE ONE TABLET BY MOUTH TWICE A DAY AT 8AM AND 6PM TAKE ONE TABLET BY MOUTH TWICE A DAY AT 8AM AND 6PM SO LD: 04/13/2021 [facility] 325 mg (65 mg iron) 04/12/2021 12:00:00 AM EDT tablet, delayed release (DR/EC) 90 TAKE ONE TABLET BY MOUTH ONCE DAILY TAKE ONE TAB LET BY MOUTH ONCE DAILY SOLD: 04/12/2021 [facility] 800 mg 04/11/2021 12:00:00 AM EDT tablet 240 TAKE ONE TABLET BY MOUTH THREE TIMES A DAY TAKE ONE TABLET BY MOUTH THREE TIMES A DAY SOLD: 04/15/2021 [facility] 325 mg (65 mg iron) 04/11/2021 12:00:00 AM EDT tablet 30 TAKE ONE TABLET BY MOUTH EVERY DAY TAKE ONE TABLET BY MOUTH EVERY DAY SOLD: 07/06/2021 [facility] 25 mg 04/11/2021 12:00:00 AM EDT tablet 90 TAKE ONE TABLET BY MOUTH EVERY MORNING TAKE ONE TABLET BY MOUTH EVERY MORNING SOLD: 04/12/2021 [facility] 25 mg 04/11/2021 12:00:00 AM EDT tablet 90 TAKE ONE TABLET BY MOUTH EVERY MORNING TAKE ONE TABLET BY MOUTH EVERY MORNING SOLD: 07/15/2021 [facility] 325 mg (65 mg iron) 04/11/2021 12:00:00 AM EDT tablet 30 TAKE ONE TABLET BY MOUTH EVERY DAY TAKE ONE TABLET BY MOUTH EVERY DAY SOLD: 06/06/2021 [facility] 325 mg (65 mg iron) 04/11/2021 12:00:00 AM EDT tablet 30 TAKE ONE TABLET BY MOUTH EVERY DAY TAKE ONE TABLET BY MOUTH EVERY DAY SOLD: 04/12/2021 [facility] 81 mg 04/11/2021 12:00:00 AM EDT tablet,chewable 90 CHEW ONE TABLET BY MOUTH EVERY DAY CHEW ONE TABLET BY MOUTH EVERY DAY SOLD: 04/12/2021 [facility] 325 mg (65 mg iron) 04/11/2021 12:00:00 AM EDT tablet 30 TAKE ONE TABLET BY MOUTH EVERY DAY TAKE ONE TABLET BY MOUTH EVERY DAY SOLD: 05/10/2021 [facility] 120 ACTUAT Albuterol 0.1 MG/ACTUAT / Ipr atropium [place] 0.02 MG/ACTUAT Metered Dose Inhaler [Combivent] 20-100 mcg/actuation IPRATROPIUM/ALBUTEROL SULFATE 04/10/2021 12:00:00 AM EDT mist 4 INHAL E ONE PUFF BY MOUTH FOUR TIMES A DAY NEEDED INHALE ONE PUFF BY MOUTH FOUR TIMES A DAY NEEDED SOLD: 2020 [facility] 325 mg 04/10/2021 12:00:00 AM EDT tablet 120 TAKE ONE TO TWO TABLETS BY MOUTH EVERY 4 HOURS NEEDED TAKE ONE TO TWO TABLETS BY MOUTH EVERY 4 HOURS NEEDED SOLD: 04/10/2021 [facility] 120 ACTUAT Albuterol 0.1 MG/ACTUAT / Ipr atropium [place] 0.02 MG/ACTUAT Metered Dose Inhaler [Combivent] 20-100 mcg/actuation IPRATROPIUM/ALBUTEROL SULFATE 04/10/2021 12:00:00 AM EDT mist 4 INHAL E ONE PUFF BY MOUTH FOUR TIMES A DAY NEEDED INHALE ONE PUFF BY MOUTH FOUR TIMES A DAY NEEDED SOLD: 2020 [facility] 120 ACTUAT Albuterol 0.1 MG/ACTUAT / Ipr atropium [place] 0.02 MG/ACTUAT Metered Dose Inhaler [Combivent] 20-100 mcg/actuation IPRATROPIUM/ALBUTEROL SULFATE 04/10/2021 12:00:00 AM EDT mist 4 INHAL E ONE PUFF BY MOUTH FOUR TIMES A DAY NEEDED INHALE ONE PUFF BY MOUTH FOUR TIMES A DAY NEEDED SOLD: 2020 [facility] 325 mg 04/10/2021 12:00:00 AM EDT tablet 120 TAKE ONE TO TWO TABLETS BY MOUTH EVERY 4 HOURS NEEDED TAKE ONE TO TWO TABLETS BY MOUTH EVERY 4 HOURS NEEDED SOLD: 05/08/2021 [facility] 18-400 mg-mcg 03/28/2021 12:00:00 AM EDT tablet 30 TAKE ONE TABLET BY MOUTH EVERY DAY TAKE ONE TABLET BY MOUTH EVERY DAY SOLD: 05/23/2021 [facility] Rosuvastatin calcium 10 MG Oral Tablet ROSUVASTATIN CALCIUM 03/28/2021 12:00:00 AM EDT tablet 30 TAKE ONE TABLET BY MOUTH ADRIANA DAY TAKE ONE TABLET BY MOUTH EVERY DAY SOLD: 03/28/2021 [facility] 18-400 mg-mcg 03/28/2021 12:00:00 AM EDT tablet 30 TAKE ONE TABLET BY MOUTH EVERY DAY TAKE ONE TABLET BY MOUTH EVERY DAY SOLD: 03/28/2021 [facility] 18-400 mg-mcg 03/28/2021 12:00:00 AM EDT tablet 30 TAKE ONE TABLET BY MOUTH EVERY DAY TAKE ONE TABLET BY MOUTH EVERY DAY SOLD: 04/24/2021 [facility] 10 mg 03/21/2021 12:00:00 AM EDT tablet 60 TAKE ONE TABLET BY MOUTH EVERY 12 HOURS NEEDED FOR PAIN MAXIMUM DAILY DOSE = TWO TABLETS TAKE ONE TABLET BY MOUTH EVERY 12 HOURS NEEDED FOR PAIN MAXIMUM DAILY DOSE = TWO TABLETS SOLD: 03/21/2021 [facility] Oxycodone Hydrochloride 10 MG Oral Tablet oxyCODONE HC l 10 MG oxyCODONE HCl 10 MG 03/20/2021 12:00:00 AM EDT 1.0 {tablet_as_needed} active oxyCODONE HCl 10 MG [facility]CW1 [facility] pantoprazole 40 MG Delayed Release Oral Tablet PANTOPRAZOLE SODIUM 03/20/2021 12:00:00 AM EDT tablet,delayed release (DR/EC) 30 T MAG ONE TABLET BY MOUTH EVERY MORNING TAKE ONE TABLET BY MOUTH EVERY MORNING SOLD: 03/20/2021 [facility] pantoprazole 40 MG Delayed Release Oral Tablet PANTOPRAZOLE SODIUM 03/20/2021 12:00:00 AM EDT tablet,delayed release (DR/EC) 30 T MAG ONE TABLET BY MOUTH EVERY MORNING TAKE ONE TABLET BY MOUTH EVERY MORNING SOLD: 05/09/2021 [facility] pantoprazole 40 MG Delayed Release Oral Tablet PANTOPRAZOLE SODIUM 03/20/2021 12:00:00 AM EDT tablet,delayed release (DR/EC) 30 T MAG ONE TABLET BY MOUTH EVERY MORNING TAKE ONE TABLET BY MOUTH EVERY MORNING SOLD: 06/28/2021 [facility] Oxycodone Hydrochloride 10 MG Oral Tablet oxyCODONE HC l 10 MG oxyCODONE HCl 10 MG 03/20/2021 12:00:00 AM EDT 1.0 {tablet_as_needed} active oxyCODONE HCl 10 MG eCW1 ([facility]) Oxycodone Hydrochloride 10 MG Oral Tablet oxyCODONE HC l 10 MG oxyCODONE HCl 10 MG 03/20/2021 12:00:00 AM EDT 1.0 {tablet_as_needed} active oxyCODONE HCl 10 MG eCW1 ([facility]) 800 mg 02/21/2021 12:00:00 AM EDT tablet 270 TAKE ONE TABLET BY MOUTH THREE TIMES A DAY TAKE ONE TABLET BY MOUTH THREE TIMES A DAY SOLD: 02/21/2021 [facility] 10 mg 02/15/2021 12:00:00 AM EDT tablet 60 TAKE ONE TABLET BY MOUTH EVERY 12 HOURS NEEDED FOR PAIN MAXIMUM DAILY DOSE = TWO TABLETS TAKE ONE TABLET BY MOUTH EVERY 12 HOURS NEEDED FOR PAIN MAXIMUM DAILY DOSE = TWO TABLETS SOLD: 02/15/2021 [facility] Oxycodone Hydrochloride 10 MG Oral Tablet oxyCODONE HC l 10 MG oxyCODONE HCl 10 MG 02/14/2021 12:00:00 AM EDT 1.0 {tablet_as_needed} active oxyCODONE HCl 10 MG eCW1 ([facility]) Oxycodone Hydrochloride 10 MG Oral Tablet oxyCODONE HC l 10 MG oxyCODONE HCl 10 MG 02/14/2021 12:00:00 AM EDT 1.0 {tablet_as_needed} active oxyCODONE HCl 10 MG eCW1 ([facility]) Oxycodone Hydrochloride 10 MG Oral Tablet Oxycodone HC l 10 MG Oxycodone HCl 10 MG 02/14/2021 12:00:00 AM EDT 1.0 {tablet_as_needed} active Oxycodone HCl 10 MG eCW1 ([facility]) Rosuvastatin calcium 10 MG Oral Tablet ROSUVASTATIN CALCIUM 01/26/2021 12:00:00 AM EDT tablet 30 TAKE ONE TABLET BY MOUTH ADRIANA RY DAY TAKE ONE TABLET BY MOUTH EVERY DAY SOLD: 02/22/2021 [facility] Rosuvastatin calcium 10 MG Oral Tablet ROSUVASTATIN CALCIUM 01/26/2021 12:00:00 AM EDT tablet 30 TAKE ONE TABLET BY MOUTH ADRIANA RY DAY TAKE ONE TABLET BY MOUTH EVERY DAY SOLD: 01/26/2021 [facility] 81 mg 01/24/2021 12:00:00 AM EDT tablet,chewable 90 CHEW ONE TABLET BY MOUTH EVERY DAY CHEW ONE TABLET BY MOUTH EVERY DAY SOLD: 01/24/2021 [facility] carvedilol 6.25 MG Oral Tablet CARVEDILOL 01/20/2021 12:00:00 AM EDT tablet 60 TAKE ONE TABLET BY MOUTH TWICE A DAY TAKE ONE TABLET BY MOUT H TWICE A DAY SOLD: 01/21/2021 [facility] carvedilol 6.25 MG Oral Tablet CARVEDILOL 01/20/2021 12:00:00 AM EDT tablet 60 TAKE ONE TABLET BY MOUTH TWICE A DAY TAKE ONE TABLET BY MOUT H TWICE A DAY SOLD: 02/19/2021 [facility] carvedilol 6.25 MG Oral Tablet CARVEDILOL 01/20/2021 12:00:00 AM EDT tablet 60 TAKE ONE TABLET BY MOUTH TWICE A DAY TAKE ONE TABLET BY MOUT H TWICE A DAY SOLD: 05/14/2021 [facility] carvedilol 6.25 MG Oral Tablet CARVEDILOL 01/20/2021 12:00:00 AM EDT tablet 60 TAKE ONE TABLET BY MOUTH TWICE A DAY TAKE ONE TABLET BY MOUT H TWICE A DAY SOLD: 03/20/2021 [facility] 25 mg 01/20/2021 12:00:00 AM EDT tablet 30 TAKE ONE TABLET BY MOUTH EVERY MORNING TAKE ONE TABLET BY MOUTH EVERY MORNING SOLD: 03/20/2021 [facility] carvedilol 6.25 MG Oral Tablet CARVEDILOL 01/20/2021 12:00:00 AM EDT tablet 60 TAKE ONE TABLET BY MOUTH TWICE A DAY TAKE ONE TABLET BY MOUT H TWICE A DAY SOLD: 06/11/2021 [facility] carvedilol 6.25 MG Oral Tablet CARVEDILOL 01/20/2021 12:00:00 AM EDT tablet 60 TAKE ONE TABLET BY MOUTH TWICE A DAY TAKE ONE TABLET BY MOUT H TWICE A DAY SOLD: 04/17/2021 [facility] 25 mg 01/20/2021 12:00:00 AM EDT tablet 30 TAKE ONE TABLET BY MOUTH EVERY MORNING TAKE ONE TABLET BY MOUTH EVERY MORNING SOLD: 02/19/2021 [facility] 25 mg 01/20/2021 12:00:00 AM EDT tablet 30 TAKE ONE TABLET BY MOUTH EVERY MORNING TAKE ONE TABLET BY MOUTH EVERY MORNING SOLD: 01/21/2021 [facility] 10 mg 01/15/2021 12:00:00 AM EDT tablet 60 TAKE ONE TABLET BY MOUTH EVERY 12 HOURS NEEDED FOR PAIN MAXIMUM DAILY DOSE = 2 TABLETS TAKE ONE TABLET BY MOUTH EVERY 12 HOURS NEEDED FOR PAIN MAXIMUM DAILY DOSE = 2 TABLETS SOLD: 01/15/2021 [facility] Oxycodone Hydrochloride 10 MG Oral Tablet Oxycodone HC l 10 MG Oxycodone HCl 10 MG 01/12/2021 12:00:00 AM EDT 1.0 {tablet_as_needed} active Oxycodone HCl 10 MG eCW1 ([facility]) Oxycodone Hydrochloride 10 MG Oral Tablet Oxycodone HC l 10 MG Oxycodone HCl 10 MG 01/12/2021 12:00:00 AM EDT 1.0 {tablet_as_needed} active Oxycodone HCl 10 MG eCW1 ([facility]) Oxycodone Hydrochloride 10 MG Oral Tablet oxyCODONE HC l 10 MG oxyCODONE HCl 10 MG 01/12/2021 12:00:00 AM EDT 1.0 {tablet_as_needed} suspended oxyCODONE HCl 10 MG eCW1 ([facility]) Oxycodone Hydrochloride 10 MG Oral Tablet oxyCODONE HC l 10 MG oxyCODONE HCl 10 MG 01/12/2021 12:00:00 AM EDT 1.0 {tablet_as_needed} suspended oxyCODONE HCl 10 MG eCW1 ([facility]) Oxycodone Hydrochloride 10 MG Oral Tablet Oxycodone HC l 10 MG Oxycodone HCl 10 MG 01/12/2021 12:00:00 AM EDT 1.0 {tablet_as_needed} active Oxycodone HCl 10 MG eCW1 ([facility]) Oxycodone Hydrochloride 10 MG Oral Tablet oxyCODONE HC l 10 MG oxyCODONE HCl 10 MG 01/12/2021 12:00:00 AM EDT 1.0 {tablet_as_needed} active oxyCODONE HCl 10 MG eCW1 ([facility]) Oxycodone Hydrochloride 10 MG Oral Tablet Oxycodone HC l 10 MG Oxycodone HCl 10 MG 01/12/2021 12:00:00 AM EDT 1.0 {tablet_as_needed} active Oxycodone HCl 10 MG eCW1 ([facility]) Oxycodone Hydrochloride 10 MG Oral Tablet Oxycodone HC l 10 MG Oxycodone HCl 10 MG 01/12/2021 12:00:00 AM EDT 1.0 {tablet_as_needed} active Oxycodone HCl 10 MG eCW1 ([facility]) Oxycodone Hydrochloride 10 MG Oral Tablet Oxycodone HC l 10 MG Oxycodone HCl 10 MG 01/12/2021 12:00:00 AM EDT 1.0 {tablet_as_needed} active Oxycodone HCl 10 MG eCW1 ([facility]) Oxycodone Hydrochloride 10 MG Oral Tablet oxyCODONE HC l 10 MG oxyCODONE HCl 10 MG 01/12/2021 12:00:00 AM EDT 1.0 {tablet_as_needed} suspended oxyCODONE HCl 10 MG eCW1 ([facility]) Oxycodone Hydrochloride 10 MG Oral Tablet oxyCODONE HC l 10 MG oxyCODONE HCl 10 MG 01/12/2021 12:00:00 AM EDT 1.0 {tablet_as_needed} suspended oxyCODONE HCl 10 MG eCW1 ([facility]) Oxycodone Hydrochloride 10 MG Oral Tablet oxyCODONE HC l 10 MG oxyCODONE HCl 10 MG 01/12/2021 12:00:00 AM EDT 1.0 {tablet_as_needed} suspended oxyCODONE HCl 10 MG eCW1 ([facility]) Oxycodone Hydrochloride 10 MG Oral Tablet Oxycodone HC l 10 MG Oxycodone HCl 10 MG 01/12/2021 12:00:00 AM EDT 1.0 {tablet_as_needed} active Oxycodone HCl 10 MG eCW1 ([facility]) 600 mg 01/03/2021 12:00:00 AM EDT tablet 90 TAKE ONE TABLET BY MOUTH THREE TIMES A DAY TAKE ONE TABLET BY MOUTH THREE TIMES A DAY SOLD: 02/19/2021 [facility] 600 mg 01/03/2021 12:00:00 AM EDT tablet 90 TAKE ONE TABLET BY MOUTH THREE TIMES A DAY TAKE ONE TABLET BY MOUTH THREE TIMES A DAY SOLD: 03/23/2021 [facility] 600 mg 01/03/2021 12:00:00 AM EDT tablet 90 TAKE ONE TABLET BY MOUTH THREE TIMES A DAY TAKE ONE TABLET BY MOUTH THREE TIMES A DAY SOLD: 01/04/2021 [facility] 17 gram 01/02/2021 12:00:00 AM EDT powder in packet 90 MIX 1 PACKET WITH 8 OUNCES OF FLUID AND TAKE BY MOUTH ONCE DAILY MIX 1 PACKET WITH 8 OUNCES OF FLUID AND TAKE BY MOUTH ONCE DAILY SOLD: 01/02/2021 [facility] May Use - UNK 12/26/2020 12:00:00 AM EDT active May Use - eCW1 ([facility]) May Use - UNK 12/26/2020 12:00:00 AM EDT active May Use - eCW1 ([facility]) May Use - UNK 12/26/2020 12:00:00 AM EDT active May Use - eCW1 ([facility]) May Use - UNK 12/26/2020 12:00:00 AM EDT active May Use - eCW1 ([facility]) May Use - UNK 12/26/2020 12:00:00 AM EDT active May Use - eCW1 ([facility]) May Use - UNK 12/26/2020 12:00:00 AM EDT active May Use - eCW1 ([facility]) May Use - UNK 12/26/2020 12:00:00 AM EDT active May Use - eCW1 ([facility]) May Use - UNK 12/26/2020 12:00:00 AM EDT active May Use - eCW1 ([facility]) May Use - UNK 12/26/2020 12:00:00 AM EDT active May Use - eCW1 ([facility]) May Use - UNK 12/26/2020 12:00:00 AM EDT active May Use - eCW1 ([facility]) May Use - UNK 12/26/2020 12:00:00 AM EDT active May Use - eCW1 ([facility]) May Use - UNK 12/26/2020 12:00:00 AM EDT active May Use - eCW1 ([facility]) May Use - UNK 12/26/2020 12:00:00 AM EDT active May Use - eCW1 ([facility]) May Use - UNK 12/26/2020 12:00:00 AM EDT active May Use - eCW1 ([facility]) May Use - UNK 12/26/2020 12:00:00 AM EDT active May Use - eCW1 ([facility]) May Use - UNK 12/26/2020 12:00:00 AM EDT active May Use - eCW1 ([facility]) May Use - UNK 12/26/2020 12:00:00 AM EDT active May Use - eCW1 ([facility]) May Use - UNK 12/26/2020 12:00:00 AM EDT active May Use - eCW1 ([facility]) May Use - UNK 12/26/2020 12:00:00 AM EDT active May Use - eCW1 ([facility]) May Use - UNK 12/26/2020 12:00:00 AM EDT active May Use - eCW1 ([facility]) May Use - UNK 12/26/2020 12:00:00 AM EDT active May Use - eCW1 ([facility]) May Use - UNK 12/26/2020 12:00:00 AM EDT active May Use - eCW1 ([facility]) May Use - UNK 12/26/2020 12:00:00 AM EDT active May Use - eCW1 ([facility]) May Use - UNK 12/26/2020 12:00:00 AM EDT active May Use - eCW1 ([facility]) May Use - UNK 12/26/2020 12:00:00 AM EDT active May Use - eCW1 ([facility]) May Use - UNK 12/26/2020 12:00:00 AM EDT active May Use - eCW1 ([facility]) May Use - UNK 12/26/2020 12:00:00 AM EDT active May Use - eCW1 ([facility]) May Use - UNK 12/26/2020 12:00:00 AM EDT active May Use - eCW1 ([facility]) May Use - UNK 12/26/2020 12:00:00 AM EDT active May Use - eCW1 ([facility]) May Use - UNK 12/26/2020 12:00:00 AM EDT active May Use - eCW1 ([facility]) May Use - UNK 12/26/2020 12:00:00 AM EDT active May Use - eCW1 ([facility]) May Use - UNK 12/26/2020 12:00:00 AM EDT active May Use - eCW1 ([facility]) May Use - UNK 12/26/2020 12:00:00 AM EDT active May Use - eCW1 ([facility]) May Use - UNK 12/26/2020 12:00:00 AM EDT active May Use - eCW1 ([facility]) 200 mg 12/20/2020 12:00:00 AM EDT tablet 60 TAKE TWO TABLETS BY MOUTH EVERY DAY TAKE TWO TABLETS BY MOUTH EVERY DAY SOLD: 01/21/2021 [facility] 200 mg 12/20/2020 12:00:00 AM EDT tablet 60 TAKE TWO TABLETS BY MOUTH EVERY DAY TAKE TWO TABLETS BY MOUTH EVERY DAY SOLD: 12/20/2020 [facility] 200 mg 12/20/2020 12:00:00 AM EDT tablet 60 TAKE TWO TABLETS BY MOUTH EVERY DAY TAKE TWO TABLETS BY MOUTH EVERY DAY SOLD: 03/20/2021 [facility] 200 mg 12/20/2020 12:00:00 AM EDT tablet 60 TAKE TWO TABLETS BY MOUTH EVERY DAY TAKE TWO TABLETS BY MOUTH EVERY DAY SOLD: 02/19/2021 [facility] 10 mg 12/12/2020 12:00:00 AM EDT tablet 60 TAKE ONE TABLET BY MOUTH EVERY 12 HOURS NEEDED FOR PAIN MAXIMUM DAILY DOSE = 2 TABLETS TAKE ONE TABLET BY MOUTH EVERY 12 HOURS NEEDED FOR PAIN MAXIMUM DAILY DOSE = 2 TABLETS SOLD: 12/12/2020 [facility] Oxycodone Hydrochloride 10 MG Oral Tablet Oxycodone HC l 10 MG Oxycodone HCl 10 MG 12/11/2020 12:00:00 AM EDT 1.0 {tablet_as_needed} active Oxycodone HCl 10 MG eCW1 ([facility]) Oxycodone Hydrochloride 10 MG Oral Tablet Oxycodone HC l 10 MG Oxycodone HCl 10 MG 12/11/2020 12:00:00 AM EDT 1.0 {tablet_as_needed} active Oxycodone HCl 10 MG eCW1 ([facility]) Oxycodone Hydrochloride 10 MG Oral Tablet Oxycodone HC l 10 MG Oxycodone HCl 10 MG 12/11/2020 12:00:00 AM EDT 1.0 {tablet_as_needed} active Oxycodone HCl 10 MG eCW1 ([facility]) Oxycodone Hydrochloride 10 MG Oral Tablet Oxycodone HC l 10 MG Oxycodone HCl 10 MG 12/11/2020 12:00:00 AM EDT 1.0 {tablet_as_needed} active Oxycodone HCl 10 MG eCW1 ([facility]) Oxycodone Hydrochloride 10 MG Oral Tablet Oxycodone HC l 10 MG Oxycodone HCl 10 MG 12/11/2020 12:00:00 AM EDT 1.0 {tablet_as_needed} active Oxycodone HCl 10 MG eCW1 ([facility]) 325 mg (65 mg iron) 12/06/2020 12:00:00 AM EDT tablet, delayed release (DR/EC) 30 TAKE ONE TABLET BY MOUTH EVERY DAY TAKE ONE TABL ET BY MOUTH EVERY DAY SOLD: 03/06/2021 [facility] 325 mg (65 mg iron) 12/06/2020 12:00:00 AM EDT tablet, delayed release (DR/EC) 30 TAKE ONE TABLET BY MOUTH EVERY DAY TAKE ONE TABL ET BY MOUTH EVERY DAY SOLD: 01/22/2021 [facility] 18-400 mg-mcg 12/06/2020 12:00:00 AM EDT tablet 30 TAKE ONE TABLET BY MOUTH EVERY DAY TAKE ONE TABLET BY MOUTH EVERY DAY SOLD: 02/01/2021 [facility] 18-400 mg-mcg 12/06/2020 12:00:00 AM EDT tablet 30 TAKE ONE TABLET BY MOUTH EVERY DAY TAKE ONE TABLET BY MOUTH EVERY DAY SOLD: 02/28/2021 [facility] 18-400 mg-mcg 12/06/2020 12:00:00 AM EDT tablet 30 TAKE ONE TABLET BY MOUTH EVERY DAY TAKE ONE TABLET BY MOUTH EVERY DAY SOLD: 12/06/2020 [facility] 325 mg (65 mg iron) 12/06/2020 12:00:00 AM EDT tablet, delayed release (DR/EC) 30 TAKE ONE TABLET BY MOUTH EVERY DAY TAKE ONE TABL ET BY MOUTH EVERY DAY SOLD: 12/06/2020 [facility] 18-400 mg-mcg 12/06/2020 12:00:00 AM EDT tablet 30 TAKE ONE TABLET BY MOUTH EVERY DAY TAKE ONE TABLET BY MOUTH EVERY DAY SOLD: 01/04/2021 [facility] 20-100 mcg/actuation 11/28/2020 12:00:00 AM EDT mist 4 INHALE ONE PUFF BY MOUTH FOUR TIMES A DAY INHALE ONE PUFF BY MOUTH FOUR TIMES A DAY SOLD: 11/28/2020 [facility] Amlodipine 2.5 MG Oral Tablet AMLODIPINE BESYLATE 11/28/2020 12: 00:00 AM EDT tablet 90 TAKE ONE TABLET BY MOUTH EVERY M ORNING TAKE ONE TABLET BY MOUTH EVERY MORNING SOLD: 11/28/2020 [facility] Combivent Respimat 20-100 mcg/act UNK 11/24/2020 12:00:00 AM EST 1.0 {puff} active Combivent Respimat 20-100 mcg/act eCW1 ([facility]) Combivent Respimat 20-100 mcg/act UNK 11/24/2020 12:00:00 AM EST 1.0 {puff} active Combivent Respimat 20-100 mcg/act eCW1 ([facility]) Combivent Respimat 20-100 mcg/act UNK 11/24/2020 12:00:00 AM EST 1.0 {puff} active Combivent Respimat 20-100 mcg/act eCW1 ([facility]) Combivent Respimat 20-100 mcg/act UNK 11/24/2020 12:00:00 AM EST 1.0 {puff} active Combivent Respimat 20-100 mcg/act eCW1 ([facility]) Combivent Respimat 20-100 mcg/act UNK 11/24/2020 12:00:00 AM EST 1.0 {puff} active Combivent Respimat 20-100 mcg/act eCW1 ([facility]) Combivent Respimat 20-100 mcg/act UNK 11/24/2020 12:00:00 AM EST 1.0 {puff} active Combivent Respimat 20-100 mcg/act eCW1 ([facility]) Combivent Respimat 20-100 mcg/act UNK 11/24/2020 12:00:00 AM EST 1.0 {puff} active Combivent Respimat 20-100 mcg/act eCW1 ([facility]) Combivent Respimat 20-100 mcg/act UNK 11/24/2020 12:00:00 AM EST 1.0 {puff} active Combivent Respimat 20-100 mcg/act eCW1 ([facility]) Combivent Respimat 20-100 mcg/act UNK 11/24/2020 12:00:00 AM EST 1.0 {puff} active Combivent Respimat 20-100 mcg/act eCW1 ([facility]) Combivent Respimat 20-100 mcg/act UNK 11/24/2020 12:00:00 AM EST 1.0 {puff} active Combivent Respimat 20-100 mcg/act eCW1 ([facility]) Combivent Respimat 20-100 mcg/act UNK 11/24/2020 12:00:00 AM EST 1.0 {puff} active Combivent Respimat 20-100 mcg/act eCW1 ([facility]) Combivent Respimat 20-100 mcg/act UNK 11/24/2020 12:00:00 AM EST 1.0 {puff} active Combivent Respimat 20-100 mcg/act eCW1 ([facility]) Combivent Respimat 20-100 mcg/act UNK 11/24/2020 12:00:00 AM EST 1.0 {puff} active Combivent Respimat 20-100 mcg/act eCW1 ([facility]) Combivent Respimat 20-100 mcg/act UNK 11/24/2020 12:00:00 AM EST 1.0 {puff} active Combivent Respimat 20-100 mcg/act eCW1 ([facility]) Combivent Respimat 20-100 mcg/act UNK 11/24/2020 12:00:00 AM EST 1.0 {puff} active Combivent Respimat 20-100 mcg/act eCW1 ([facility]) Combivent Respimat 20-100 mcg/act UNK 11/24/2020 12:00:00 AM EST 1.0 {puff} active Combivent Respimat 20-100 mcg/act eCW1 ([facility]) Combivent Respimat 20-100 mcg/act UNK 11/24/2020 12:00:00 AM EST 1.0 {puff} active Combivent Respimat 20-100 mcg/act eCW1 ([facility]) Combivent Respimat 20-100 mcg/act UNK 11/24/2020 12:00:00 AM EST 1.0 {puff} active Combivent Respimat 20-100 mcg/act eCW1 ([facility]) Combivent Respimat 20-100 mcg/act UNK 11/24/2020 12:00:00 AM EST 1.0 {puff} active Combivent Respimat 20-100 mcg/act eCW1 ([facility]) Oxycodone Hydrochloride 10 MG Oral Tablet Oxycodone HC l 10 MG Oxycodone HCl 10 MG 11/16/2020 12:00:00 AM EST 1.0 {tablet_as_needed} active Oxycodone HCl 10 MG eCW1 ([facility]) 10 mg 11/16/2020 12:00:00 AM EST tablet 60 TAKE ONE TABLET BY MOUTH TWICE A DAY NEEDED FOR PAIN MAXIMUM DAILY DOSE = 2 TAKE ONE TABLET BY MOUTH TWICE A DAY NEEDED FOR PAIN MAXIMUM DAILY DOSE = 2 SOLD: 11/16/2020 [facility] Fluconazole 200 MG Oral Tablet fluconazole (DIFLUCAN) 200 MG tablet fluconazole (DIFLUCAN) 200 MG tablet 11/16/2020 12:00:00 AM EST 400 mg Oral active Take 400 mg by mouth daily [facility] Rosuvastatin calcium 10 MG Oral Tablet ROSUVASTATIN CALCIUM 10/31/2020 12:00:00 AM EST tablet 30 TAKE ONE TABLET BY MOUTH ADRIANA RY DAY TAKE ONE TABLET BY MOUTH EVERY DAY SOLD: 12/27/2020 [facility] Paroxetine Hydrochloride 40 MG Oral Tablet PAROXETINE HCL 10/31/2020 12:00:00 AM EST tablet 30 TAKE ONE TABLET BY MOUTH ADRIANA RY MORNING TAKE ONE TABLET BY MOUTH EVERY MORNING SOLD: 03/13/2021 [facility] Paroxetine Hydrochloride 40 MG Oral Tablet PAROXETINE HCL 10/31/2020 12:00:00 AM EST tablet 30 TAKE ONE TABLET BY MOUTH ADRIANA RY MORNING TAKE ONE TABLET BY MOUTH EVERY MORNING SOLD: 04/09/2021 [facility] 10 mg 10/31/2020 12:00:00 AM EST tablet 30 TAKE ONE TABLET BY MOUTH EVERY DAY TAKE ONE TABLET BY MOUTH EVERY DAY SOLD: 11/28/2020 [facility] Rosuvastatin calcium 10 MG Oral Tablet ROSUVASTATIN CALCIUM 10/31/2020 12:00:00 AM EST tablet 30 TAKE ONE TABLET BY MOUTH ADRIANA RY DAY TAKE ONE TABLET BY MOUTH EVERY DAY SOLD: 10/31/2020 [facility] Paroxetine Hydrochloride 40 MG Oral Tablet PAROXETINE HCL 10/31/2020 12:00:00 AM EST tablet 30 TAKE ONE TABLET BY MOUTH ADRIANA RY MORNING TAKE ONE TABLET BY MOUTH EVERY MORNING SOLD: 10/31/2020 [facility] Paroxetine Hydrochloride 40 MG Oral Tablet PAROXETINE HCL 10/31/2020 12:00:00 AM EST tablet 30 TAKE ONE TABLET BY MOUTH ADRIANA RY MORNING TAKE ONE TABLET BY MOUTH EVERY MORNING SOLD: 02/12/2021 [facility] Paroxetine Hydrochloride 40 MG Oral Tablet PAROXETINE HCL 10/31/2020 12:00:00 AM EST tablet 30 TAKE ONE TABLET BY MOUTH ADRIANA RY MORNING TAKE ONE TABLET BY MOUTH EVERY MORNING SOLD: 12/20/2020 [facility] 10 mg 10/19/2020 12:00:00 AM EST tablet 60 TAKE ONE TABLET BY MOUTH TWICE A DAY NEEDED FOR PAIN MAXIMUM DAILY DOSE = 2 TAKE ONE TABLET BY MOUTH TWICE A DAY NEEDED FOR PAIN MAXIMUM DAILY DOSE = 2 SOLD: 10/20/2020 [facility] Oxycodone Hydrochloride 10 MG Oral Tablet Oxycodone HC l 10 MG Oxycodone HCl 10 MG 10/18/2020 12:00:00 AM EST 1.0 {tablet_as_needed} active Oxycodone HCl 10 MG eCW1 ([facility]) Oxycodone Hydrochloride 10 MG Oral Tablet Oxycodone HC l 10 MG Oxycodone HCl 10 MG 10/18/2020 12:00:00 AM EST 1.0 {tablet_as_needed} active Oxycodone HCl 10 MG eCW1 ([facility]) Oxycodone Hydrochloride 10 MG Oral Tablet Oxycodone HC l 10 MG Oxycodone HCl 10 MG 10/18/2020 12:00:00 AM EST 1.0 {tablet_as_needed} active Oxycodone HCl 10 MG eCW1 ([facility]) Oxycodone Hydrochloride 10 MG Oral Tablet Oxycodone HC l 10 MG Oxycodone HCl 10 MG 10/18/2020 12:00:00 AM EST 1.0 {tablet_as_needed} active Oxycodone HCl 10 MG eCW1 ([facility]) Oxycodone Hydrochloride 10 MG Oral Tablet Oxycodone HC l 10 MG Oxycodone HCl 10 MG 10/18/2020 12:00:00 AM EST 1.0 {tablet_as_needed} active Oxycodone HCl 10 MG eCW1 ([facility] 18-400 mg-mcg 09/25/2020 12:00:00 AM EST tablet 30 TAKE ONE TABLET BY MOUTH EVERY DAY TAKE ONE TABLET BY MOUTH EVERY DAY SOLD: 09/25/2020 [facility] 10 mg 09/18/2020 12:00:00 AM EST tablet 60 TAKE ONE TABLET BY MOUTH TWICE A DAY NEEDED FOR PAIN MAXIMUM DAILY DOSE = 2 TABLETS TAKE ONE TABLET BY MOUTH TWICE A DAY NEEDED FOR PAIN MAXIMUM DAILY DOSE = 2 TABLETS SOLD: 09/18/2020 [facility] pantoprazole 40 MG Delayed Release Oral Tablet PANTOPRAZOLE SODIUM 09/13/2020 12:00:00 AM EST tablet,delayed release (DR/EC) 30 T MAG ONE TABLET BY MOUTH EVERY DAY TAKE ONE TABLET BY MOUTH EVERY DAY SOLD: 01/21/2021 [facility] pantoprazole 40 MG Delayed Release Oral Tablet PANTOPRAZOLE SODIUM 09/13/2020 12:00:00 AM EST tablet,delayed release (DR/EC) 30 T MAG ONE TABLET BY MOUTH EVERY DAY TAKE ONE TABLET BY MOUTH EVERY DAY SOLD: 09/14/2020 [facility] Oxycodone Hydrochloride 10 MG Oral Tablet Oxycodone HC l 10 MG Oxycodone HCl 10 MG 09/13/2020 12:00:00 AM EST 1.0 {tablet_as_needed} active Oxycodone HCl 10 MG eCW1 ([facility]) Oxycodone Hydrochloride 10 MG Oral Tablet Oxycodone HC l 10 MG Oxycodone HCl 10 MG 09/13/2020 12:00:00 AM EST 1.0 {tablet_as_needed} active Oxycodone HCl 10 MG eCW1 ([facility]) pantoprazole 40 MG Delayed Release Oral Tablet PANTOPRAZOLE SODIUM 09/13/2020 12:00:00 AM EST tablet,delayed release (DR/EC) 30 T MAG ONE TABLET BY MOUTH EVERY DAY TAKE ONE TABLET BY MOUTH EVERY DAY SOLD: 11/16/2020 [facility] pantoprazole 40 MG Delayed Release Oral Tablet PANTOPRAZOLE SODIUM 09/13/2020 12:00:00 AM EST tablet,delayed release (DR/EC) 30 T MAG ONE TABLET BY MOUTH EVERY DAY TAKE ONE TABLET BY MOUTH EVERY DAY SOLD: 12/20/2020 [facility] Oxycodone Hydrochloride 10 MG Oral Tablet Oxycodone HC l 10 MG Oxycodone HCl 10 MG 09/13/2020 12:00:00 AM EST 1.0 {tablet_as_needed} active Oxycodone HCl 10 MG eCW1 ([facility]) pantoprazole 40 MG Delayed Release Oral Tablet PANTOPRAZOLE SODIUM 09/13/2020 12:00:00 AM EST tablet,delayed release (DR/EC) 30 T MAG ONE TABLET BY MOUTH EVERY DAY TAKE ONE TABLET BY MOUTH EVERY DAY SOLD: 10/15/2020 [facility] pantoprazole 40 MG Delayed Release Oral Tablet PANTOPRAZOLE SODIUM 09/13/2020 12:00:00 AM EST tablet,delayed release (DR/EC) 30 T MAG ONE TABLET BY MOUTH EVERY DAY TAKE ONE TABLET BY MOUTH EVERY DAY SOLD: 02/19/2021 [facility] 2.5 mg 09/11/2020 12:00:00 AM EST tablet 30 TAKE ONE TABLET BY MOUTH EVERY DAY TAKE ONE TABLET BY MOUTH EVERY DAY SOLD: 02/07/2021 [facility] 2.5 mg 09/11/2020 12:00:00 AM EST tablet 30 TAKE ONE TABLET BY MOUTH EVERY DAY TAKE ONE TABLET BY MOUTH EVERY DAY SOLD: 09/11/2020 [facility] 2.5 mg 09/11/2020 12:00:00 AM EST tablet 30 TAKE ONE TABLET BY MOUTH EVERY DAY TAKE ONE TABLET BY MOUTH EVERY DAY SOLD: 11/08/2020 [facility] 2.5 mg 09/11/2020 12:00:00 AM EST tablet 30 TAKE ONE TABLET BY MOUTH EVERY DAY TAKE ONE TABLET BY MOUTH EVERY DAY SOLD: 03/06/2021 [facility] 2.5 mg 09/11/2020 12:00:00 AM EST tablet 30 TAKE ONE TABLET BY MOUTH EVERY DAY TAKE ONE TABLET BY MOUTH EVERY DAY SOLD: 04/10/2021 [facility] 2.5 mg 09/11/2020 12:00:00 AM EST tablet 30 TAKE ONE TABLET BY MOUTH EVERY DAY TAKE ONE TABLET BY MOUTH EVERY DAY SOLD: 10/10/2020 [facility] 10 mg 08/30/2020 12:00:00 AM EST tablet 45 TAKE ONE TABLET BY MOUTH TWICE A DAY NEEDED FOR PAIN. 45 TABLETS TO LAST 30 DAYS MAXIMUM DAILY DOSE = 2 TAKE ONE TABLET BY MOUTH TWICE A DAY NEEDED FOR PAIN. 45 TABLETS TO LAST 30 DAYS MAXIMUM DAILY DOSE = 2 SOLD: 08/30/2020 [facility] Oxycodone Hydrochloride 10 MG Oral Tablet Oxycodone HC l 10 MG Oxycodone HCl 10 MG 08/29/2020 12:00:00 AM EST 1.0 {tablet_as_needed} active Oxycodone HCl 10 MG eCW1 ([facility] Oxycodone Hydrochloride 10 MG Oral Tablet Oxycodone HC l 10 MG Oxycodone HCl 10 MG 08/29/2020 12:00:00 AM EST 1.0 {tablet_as_needed} active Oxycodone HCl 10 MG eCW1 ([facility]) 800 mg 08/28/2020 12:00:00 AM EST tablet 90 TAKE ONE TABLET BY MOUTH THREE TIMES A DAY TAKE ONE TABLET BY MOUTH THREE TIMES A DAY SOLD: 09/28/2020 [facility] 800 mg 08/28/2020 12:00:00 AM EST tablet 90 TAKE ONE TABLET BY MOUTH THREE TIMES A DAY TAKE ONE TABLET BY MOUTH THREE TIMES A DAY SOLD: 08/28/2020 [facility] 800 mg 08/28/2020 12:00:00 AM EST tablet 90 TAKE ONE TABLET BY MOUTH THREE TIMES A DAY TAKE ONE TABLET BY MOUTH THREE TIMES A DAY SOLD: 12/21/2020 [facility] 800 mg 08/28/2020 12:00:00 AM EST tablet 90 TAKE ONE TABLET BY MOUTH THREE TIMES A DAY TAKE ONE TABLET BY MOUTH THREE TIMES A DAY SOLD: 01/21/2021 [facility] 800 mg 08/28/2020 12:00:00 AM EST tablet 90 TAKE ONE TABLET BY MOUTH THREE TIMES A DAY TAKE ONE TABLET BY MOUTH THREE TIMES A DAY SOLD: 11/24/2020 [facility] 800 mg 08/28/2020 12:00:00 AM EST tablet 90 TAKE ONE TABLET BY MOUTH THREE TIMES A DAY TAKE ONE TABLET BY MOUTH THREE TIMES A DAY SOLD: 10/27/2020 [facility] 25 mg 08/01/2020 12:00:00 AM EST tablet 30 TAKE ONE TABLET BY MOUTH EVERY MORNING TAKE ONE TABLET BY MOUTH EVERY MORNING SOLD: 09/28/2020 [facility] 10 mg 08/01/2020 12:00:00 AM EST tablet 45 TAKE ONE TABLET BY MOUTH TWICE A DAY NEEDED FOR PAIN MAXIMUM DAILY DOSE = 2 TABLETS (45 TABS=30 DAYS) TAKE ONE TABLET BY MOUTH TWICE A DAY NEEDED FOR PAIN MAXIMUM DAILY DOSE = 2 TABLETS (45 TABS=30 DAYS) SOLD: 08/02/2020 [facility] 25 mg 08/01/2020 12:00:00 AM EST tablet 30 TAKE ONE TABLET BY MOUTH EVERY MORNING TAKE ONE TABLET BY MOUTH EVERY MORNING SOLD: 08/31/2020 [facility] 25 mg 08/01/2020 12:00:00 AM EST tablet 30 TAKE ONE TABLET BY MOUTH EVERY MORNING TAKE ONE TABLET BY MOUTH EVERY MORNING SOLD: 08/01/2020 [facility] 25 mg 08/01/2020 12:00:00 AM EST tablet 30 TAKE ONE TABLET BY MOUTH EVERY MORNING TAKE ONE TABLET BY MOUTH EVERY MORNING SOLD: 12/21/2020 [facility] 25 mg 08/01/2020 12:00:00 AM EST tablet 30 TAKE ONE TABLET BY MOUTH EVERY MORNING TAKE ONE TABLET BY MOUTH EVERY MORNING SOLD: 11/24/2020 [facility] 25 mg 08/01/2020 12:00:00 AM EST tablet 30 TAKE ONE TABLET BY MOUTH EVERY MORNING TAKE ONE TABLET BY MOUTH EVERY MORNING SOLD: 10/27/2020 [facility] carvedilol 6.25 MG Oral Tablet CARVEDILOL 07/31/2020 12:00:00 AM EST tablet 60 TAKE ONE TABLET BY MOUTH TWICE A DAY TAKE ONE TABLET BY MOUT H TWICE A DAY SOLD: 11/24/2020 [facility] carvedilol 6.25 MG Oral Tablet CARVEDILOL 07/31/2020 12:00:00 AM EST tablet 60 TAKE ONE TABLET BY MOUTH TWICE A DAY TAKE ONE TABLET BY MOUT H TWICE A DAY SOLD: 10/27/2020 [facility] carvedilol 6.25 MG Oral Tablet CARVEDILOL 07/31/2020 12:00:00 AM EST tablet 60 TAKE ONE TABLET BY MOUTH TWICE A DAY TAKE ONE TABLET BY MOUT H TWICE A DAY SOLD: 09/28/2020 [facility] Oxycodone Hydrochloride 10 MG Oral Tablet Oxycodone HC l 10 MG Oxycodone HCl 10 MG 07/31/2020 12:00:00 AM EST 1.0 {tablet_as_needed} active Oxycodone HCl 10 MG eCW1 ([facility]) carvedilol 6.25 MG Oral Tablet CARVEDILOL 07/31/2020 12:00:00 AM EST tablet 60 TAKE ONE TABLET BY MOUTH TWICE A DAY TAKE ONE TABLET BY MOUT H TWICE A DAY SOLD: 08/28/2020 [facility] Oxycodone Hydrochloride 10 MG Oral Tablet Oxycodone HC l 10 MG Oxycodone HCl 10 MG 07/31/2020 12:00:00 AM EST 1.0 {tablet_as_needed} active Oxycodone HCl 10 MG eCW1 ([facility]) carvedilol 6.25 MG Oral Tablet CARVEDILOL 07/31/2020 12:00:00 AM EST tablet 60 TAKE ONE TABLET BY MOUTH TWICE A DAY TAKE ONE TABLET BY MOUT H TWICE A DAY SOLD: 07/31/2020 [facility] carvedilol 6.25 MG Oral Tablet CARVEDILOL 07/31/2020 12:00:00 AM EST tablet 60 TAKE ONE TABLET BY MOUTH TWICE A DAY TAKE ONE TABLET BY MOUT H TWICE A DAY SOLD: 12/21/2020 [facility] 81 mg 07/29/2020 12:00:00 AM EST tablet,chewable 90 CHEW ONE TABLET BY MOUTH EVERY DAY CHEW ONE TABLET BY MOUTH EVERY DAY SOLD: 07/30/2020 [facility] 81 mg 07/29/2020 12:00:00 AM EST tablet,chewable 90 CHEW ONE TABLET BY MOUTH EVERY DAY CHEW ONE TABLET BY MOUTH EVERY DAY SOLD: 10/26/2020 [facility] Amlodipine 2.5 MG Oral Tablet amLODIPine (NORVASC) 2.5 MG tablet amLODIPine (NORVASC) 2.5 MG tablet 07/28/2020 12:00:00 AM EST 2.5 mg Oral active Take 2.5 mg by mouth daily [facility] Lidocaine 40 MG/ML Topical Cream lidocaine (LMX) 4 % c ream lidocaine (LMX) 4 % cream 07/25/2020 12:00:00 AM EST active APPLY TO AFFECTED AREA S ON FOOT 2 3 TIMES DAILY NEEDED [facility] 5 mg 07/21/2020 12:00:00 AM EST tablet 30 TAKE ONE TABLET BY MOUTH EVERY MORNING TAKE ONE TABLET BY MOUTH EVERY MORNING SOLD: 07/25/2020 [facility] Rosuvastatin calcium 10 MG Oral Tablet ROSUVASTATIN CALCIUM 07/19/2020 12:00:00 AM EST tablet 30 TAKE ONE TABLET BY MOUTH ADRIANA RY DAY TAKE ONE TABLET BY MOUTH EVERY DAY SOLD: 09/11/2020 [facility] 10 mg 07/16/2020 12:00:00 AM EDT tablet 90 TAKE ONE TABLET BY MOUTH EVERY DAY TAKE ONE TABLET BY MOUTH EVERY DAY SOLD: 07/17/2020 [facility] Cephalexin 500 MG Oral Capsule Cephalexin 500 MG 07/14/2020 12:00:0 0 AM EDT 1.0 {tablet} suspended Cephalexin 500 MG eCW1 ([facility]) Cephalexin 500 MG Oral Capsule Cephalexin 500 MG 07/14/2020 12:00:0 0 AM EDT 1.0 {tablet} suspended Cephalexin 500 MG eCW1 ([facility]) Cephalexin 500 MG Oral Capsule Cephalexin 500 MG 07/14/2020 12:00:0 0 AM EDT 1.0 {tablet} suspended Cephalexin 500 MG eCW1 ([facility]) Cephalexin 500 MG Oral Capsule Cephalexin 500 MG 07/14/2020 12:00:0 0 AM EDT 1.0 {tablet} suspended Cephalexin 500 MG eCW1 ([facility]) Cephalexin 500 MG Oral Capsule Cephalexin 500 MG 07/14/2020 12:00:0 0 AM EDT 1.0 {tablet} suspended Cephalexin 500 MG eCW1 ([facility]) Cephalexin 500 MG Oral Capsule Cephalexin 500 MG 07/14/2020 12:00:0 0 AM EDT 1.0 {tablet} active Cephalexin 500 MG e CW1 ([facility]) Cephalexin 500 MG Oral Capsule Cephalexin 500 MG 07/14/2020 12:00:0 0 AM EDT 1.0 {tablet} suspended Cephalexin 500 MG eCW1 ([facility]) Cephalexin 500 MG Oral Capsule Cephalexin 500 MG 07/14/2020 12:00:0 0 AM EDT 1.0 {tablet} suspended Cephalexin 500 MG eCW1 ([facility]) Cephalexin 500 MG Oral Capsule Cephalexin 500 MG 07/14/2020 12:00:0 0 AM EDT 1.0 {tablet} suspended Cephalexin 500 MG eCW1 ([facility]) Cephalexin 500 MG Oral Capsule Cephalexin 500 MG 07/14/2020 12:00:0 0 AM EDT 1.0 {tablet} suspended Cephalexin 500 MG eCW1 ([facility]) Cephalexin 500 MG Oral Capsule Cephalexin 500 MG 07/14/2020 12:00:0 0 AM EDT 1.0 {tablet} suspended Cephalexin 500 MG eCW1 ([facility]) Cephalexin 500 MG Oral Capsule Cephalexin 500 MG 07/14/2020 12:00:0 0 AM EDT 1.0 {tablet} active Cephalexin 500 MG e CW1 ([facility]) Cephalexin 500 MG Oral Capsule Cephalexin 500 MG 07/14/2020 12:00:0 0 AM EDT 1.0 {tablet} suspended Cephalexin 500 MG eCW1 ([facility]) Cephalexin 500 MG Oral Capsule Cephalexin 500 MG 07/14/2020 12:00:0 0 AM EDT 1.0 {tablet} suspended Cephalexin 500 MG eCW1 ([facility]) Cephalexin 500 MG Oral Capsule Cephalexin 500 MG 07/14/2020 12:00:0 0 AM EDT 1.0 {tablet} suspended Cephalexin 500 MG eCW1 ([facility]) Cephalexin 500 MG Oral Capsule Cephalexin 500 MG 07/14/2020 12:00:0 0 AM EDT 1.0 {tablet} suspended Cephalexin 500 MG eCW1 ([facility]) Cephalexin 500 MG Oral Capsule Cephalexin 500 MG 07/14/2020 12:00:0 0 AM EDT 1.0 {tablet} suspended Cephalexin 500 MG eCW1 ([facility]) Cephalexin 500 MG Oral Capsule Cephalexin 500 MG 07/14/2020 12:00:0 0 AM EDT 1.0 {tablet} suspended Cephalexin 500 MG eCW1 ([facility]) 500 mg 07/14/2020 12:00:00 AM EDT capsule 30 TAKE ONE CAPSULE BY MOUTH THREE TIMES A DAY TAKE ONE CAPSULE BY MOUTH THREE TIMES A DAY SOLD: 07/14/2020 [facility] Cephalexin 500 MG Oral Capsule Cephalexin 500 MG 07/14/2020 12:00:0 0 AM EDT 1.0 {tablet} suspended Cephalexin 500 MG eCW1 ([facility]) Cephalexin 500 MG Oral Capsule Cephalexin 500 MG 07/14/2020 12:00:0 0 AM EDT 1.0 {tablet} suspended Cephalexin 500 MG eCW1 ([facility]) Cephalexin 500 MG Oral Capsule Cephalexin 500 MG 07/14/2020 12:00:0 0 AM EDT 1.0 {tablet} suspended Cephalexin 500 MG eCW1 ([facility]) Cephalexin 500 MG Oral Capsule Cephalexin 500 MG 07/14/2020 12:00:0 0 AM EDT 1.0 {tablet} active Cephalexin 500 MG e CW1 ([facility]) Cephalexin 500 MG Oral Capsule Cephalexin 500 MG 07/14/2020 12:00:0 0 AM EDT 1.0 {tablet} suspended Cephalexin 500 MG eCW1 ([facility]) Cephalexin 500 MG Oral Capsule Cephalexin 500 MG 07/14/2020 12:00:0 0 AM EDT 1.0 {tablet} suspended Cephalexin 500 MG eCW1 ([facility]) Cephalexin 500 MG Oral Capsule Cephalexin 500 MG 07/14/2020 12:00:0 0 AM EDT 1.0 {tablet} active Cephalexin 500 MG e CW1 ([facility]) Cephalexin 500 MG Oral Capsule Cephalexin 500 MG 07/14/2020 12:00:0 0 AM EDT 1.0 {tablet} suspended Cephalexin 500 MG eCW1 ([facility]) Cephalexin 500 MG Oral Capsule Cephalexin 500 MG 07/14/2020 12:00:0 0 AM EDT 1.0 {tablet} active Cephalexin 500 MG e CW1 ([facility]) Cephalexin 500 MG Oral Capsule Cephalexin 500 MG 07/14/2020 12:00:0 0 AM EDT 1.0 {tablet} suspended Cephalexin 500 MG eCW1 ([facility]) Cephalexin 500 MG Oral Capsule Cephalexin 500 MG 07/14/2020 12:00:0 0 AM EDT 1.0 {tablet} suspended Cephalexin 500 MG eCW1 ([facility]) Cephalexin 500 MG Oral Capsule Cephalexin 500 MG 07/14/2020 12:00:0 0 AM EDT 1.0 {tablet} suspended Cephalexin 500 MG eCW1 ([facility]) Cephalexin 500 MG Oral Capsule Cephalexin 500 MG 07/14/2020 12:00:0 0 AM EDT 1.0 {tablet} active Cephalexin 500 MG e CW1 ([facility]) Cephalexin 500 MG Oral Capsule Cephalexin 500 MG 07/14/2020 12:00:0 0 AM EDT 1.0 {tablet} active Cephalexin 500 MG e CW1 ([facility]) Cephalexin 500 MG Oral Capsule Cephalexin 500 MG 07/14/2020 12:00:0 0 AM EDT 1.0 {tablet} active Cephalexin 500 MG e CW1 ([facility]) Cephalexin 500 MG Oral Capsule Cephalexin 500 MG 07/14/2020 12:00:0 0 AM EDT 1.0 {tablet} active Cephalexin 500 MG e CW1 ([facility]) Cephalexin 500 MG Oral Capsule Cephalexin 500 MG 07/14/2020 12:00:0 0 AM EDT 1.0 {tablet} suspended Cephalexin 500 MG eCW1 ([facility]) Cephalexin 500 MG Oral Capsule Cephalexin 500 MG 07/14/2020 12:00:0 0 AM EDT 1.0 {tablet} suspended Cephalexin 500 MG eCW1 ([facility]) Cephalexin 500 MG Oral Capsule Cephalexin 500 MG 07/14/2020 12:00:0 0 AM EDT 1.0 {tablet} suspended Cephalexin 500 MG eCW1 ([facility]) 17 gram 07/12/2020 12:00:00 AM EDT powder in packet 90 USE 1 PACKET MIXED IN 8 OUNCES OF FLUID ONCE DAILY USE 1 PACKET MIXED IN 8 OUNCES OF FLUID ONCE DAILY SOLD: 10/07/2020 [facility] 4 % 07/12/2020 12:00:00 AM EDT cream 30 APPLY TO AFFECTED AREA(S) ON FOOT 2- 3 TIMES DAILY NEEDED APPLY TO AFFECTED AREA(S) ON FOOT 2-3 TI MES DAILY NEEDED SOLD: 07/12/2020 [facility] 600 mg 07/12/2020 12:00:00 AM EDT tablet 90 TAKE ONE TABLET BY MOUTH THREE TIMES A DAY TAKE ONE TABLET BY MOUTH THREE TIMES A DAY SOLD: 11/09/2020 [facility] 600 mg 07/12/2020 12:00:00 AM EDT tablet 90 TAKE ONE TABLET BY MOUTH THREE TIMES A DAY TAKE ONE TABLET BY MOUTH THREE TIMES A DAY SOLD: 08/14/2020 [facility] 600 mg 07/12/2020 12:00:00 AM EDT tablet 90 TAKE ONE TABLET BY MOUTH THREE TIMES A DAY TAKE ONE TABLET BY MOUTH THREE TIMES A DAY SOLD: 07/12/2020 [facility] 17 gram 07/12/2020 12:00:00 AM EDT powder in packet 90 USE 1 PACKET MIXED IN 8 OUNCES OF FLUID ONCE DAILY USE 1 PACKET MIXED IN 8 OUNCES OF FLUID ONCE DAILY SOLD: 07/12/2020 [facility] 4 % 07/12/2020 12:00:00 AM EDT cream 30 APPLY TO AFFECTED AREA(S) ON FOOT 2- 3 TIMES DAILY NEEDED APPLY TO AFFECTED AREA(S) ON FOOT 2-3 TI MES DAILY NEEDED SOLD: 07/25/2020 [facility] 600 mg 07/12/2020 12:00:00 AM EDT tablet 90 TAKE ONE TABLET BY MOUTH THREE TIMES A DAY TAKE ONE TABLET BY MOUTH THREE TIMES A DAY SOLD: 09/12/2020 [facility] 600 mg 07/12/2020 12:00:00 AM EDT tablet 90 TAKE ONE TABLET BY MOUTH THREE TIMES A DAY TAKE ONE TABLET BY MOUTH THREE TIMES A DAY SOLD: 10/13/2020 [facility] 600 mg 07/12/2020 12:00:00 AM EDT tablet 90 TAKE ONE TABLET BY MOUTH THREE TIMES A DAY TAKE ONE TABLET BY MOUTH THREE TIMES A DAY SOLD: 12/06/2020 [facility] Amlodipine 2.5 MG Oral Tablet AmLODIPine Besylate 2.5 MG AmLODIPine Besylate 2.5 MG 07/11/2020 12:00:00 AM EDT 1.0 {tablet} activ e AmLODIPine Besylate 2.5 MG eCW1 ([facility]) Amlodipine 2.5 MG Oral Tablet AmLODIPine Besylate 2.5 MG AmLODIPine Besylate 2.5 MG 07/11/2020 12:00:00 AM EDT 1.0 {tablet} activ e AmLODIPine Besylate 2.5 MG eCW1 ([facility]) Amlodipine 2.5 MG Oral Tablet AmLODIPine Besylate 2.5 MG AmLODIPine Besylate 2.5 MG 07/11/2020 12:00:00 AM EDT 1.0 {tablet} activ e AmLODIPine Besylate 2.5 MG eCW1 ([facility]) Amlodipine 2.5 MG Oral Tablet AmLODIPine Besylate 2.5 MG AmLODIPine Besylate 2.5 MG 07/11/2020 12:00:00 AM EDT 1.0 {tablet} activ e AmLODIPine Besylate 2.5 MG eCW1 ([facility]) Amlodipine 2.5 MG Oral Tablet AmLODIPine Besylate 2.5 MG AmLODIPine Besylate 2.5 MG 07/11/2020 12:00:00 AM EDT 1.0 {tablet} activ e AmLODIPine Besylate 2.5 MG eCW1 ([facility]) Amlodipine 2.5 MG Oral Tablet AmLODIPine Besylate 2.5 MG AmLODIPine Besylate 2.5 MG 07/11/2020 12:00:00 AM EDT 1.0 {tablet} activ e AmLODIPine Besylate 2.5 MG eCW1 ([facility]) Amlodipine 2.5 MG Oral Tablet AmLODIPine Besylate 2.5 MG AmLODIPine Besylate 2.5 MG 07/11/2020 12:00:00 AM EDT 1.0 {tablet} activ e AmLODIPine Besylate 2.5 MG eCW1 ([facility]) Amlodipine 2.5 MG Oral Tablet AmLODIPine Besylate 2.5 MG AmLODIPine Besylate 2.5 MG 07/11/2020 12:00:00 AM EDT 1.0 {tablet} activ e AmLODIPine Besylate 2.5 MG eCW1 ([facility]) Amlodipine 2.5 MG Oral Tablet AmLODIPine Besylate 2.5 MG AmLODIPine Besylate 2.5 MG 07/11/2020 12:00:00 AM EDT 1.0 {tablet} activ e AmLODIPine Besylate 2.5 MG eCW1 ([facility]) Amlodipine 2.5 MG Oral Tablet AmLODIPine Besylate 2.5 MG AmLODIPine Besylate 2.5 MG 07/11/2020 12:00:00 AM EDT 1.0 {tablet} activ e AmLODIPine Besylate 2.5 MG eCW1 ([facility]) Amlodipine 2.5 MG Oral Tablet AmLODIPine Besylate 2.5 MG AmLODIPine Besylate 2.5 MG 07/11/2020 12:00:00 AM EDT 1.0 {tablet} activ e AmLODIPine Besylate 2.5 MG eCW1 ([facility]) Amlodipine 2.5 MG Oral Tablet AmLODIPine Besylate 2.5 MG AmLODIPine Besylate 2.5 MG 07/11/2020 12:00:00 AM EDT 1.0 {tablet} activ e AmLODIPine Besylate 2.5 MG eCW1 ([facility]) Amlodipine 2.5 MG Oral Tablet AmLODIPine Besylate 2.5 MG AmLODIPine Besylate 2.5 MG 07/11/2020 12:00:00 AM EDT 1.0 {tablet} activ e AmLODIPine Besylate 2.5 MG eCW1 ([facility]) Amlodipine 2.5 MG Oral Tablet AmLODIPine Besylate 2.5 MG AmLODIPine Besylate 2.5 MG 07/11/2020 12:00:00 AM EDT 1.0 {tablet} activ e AmLODIPine Besylate 2.5 MG eCW1 ([facility]) Amlodipine 2.5 MG Oral Tablet AmLODIPine Besylate 2.5 MG AmLODIPine Besylate 2.5 MG 07/11/2020 12:00:00 AM EDT 1.0 {tablet} activ e AmLODIPine Besylate 2.5 MG eCW1 ([facility]) Amlodipine 2.5 MG Oral Tablet AmLODIPine Besylate 2.5 MG AmLODIPine Besylate 2.5 MG 07/11/2020 12:00:00 AM EDT 1.0 {tablet} activ e AmLODIPine Besylate 2.5 MG eCW1 ([facility]) Amlodipine 2.5 MG Oral Tablet AmLODIPine Besylate 2.5 MG AmLODIPine Besylate 2.5 MG 07/11/2020 12:00:00 AM EDT 1.0 {tablet} activ e AmLODIPine Besylate 2.5 MG eCW1 ([facility]) Amlodipine 2.5 MG Oral Tablet AmLODIPine Besylate 2.5 MG AmLODIPine Besylate 2.5 MG 07/11/2020 12:00:00 AM EDT 1.0 {tablet} activ e AmLODIPine Besylate 2.5 MG eCW1 ([facility]) Amlodipine 2.5 MG Oral Tablet AmLODIPine Besylate 2.5 MG AmLODIPine Besylate 2.5 MG 07/11/2020 12:00:00 AM EDT 1.0 {tablet} activ e AmLODIPine Besylate 2.5 MG eCW1 ([facility]) metaxalone 800 MG Oral Tablet metaxalone (SKELAXIN) 80 0 MG tablet metaxalone (SKELAXIN) 800 MG tablet 07/04/2020 12:00:00 AM EDT 800 mg Oral active Take 800 mg by mouth 3 (three) times a day [facility] LANOLIN ALCOHOLS/MINERAL OIL/PETROLATUM,WHITE/CERESIN 06/29/2020 12:00:00 AM EDT cream 113 DIRECTED TWO TIMES A DAY TO LOWER LEGS FROM KNEES DOWN DIRECTED TWO TIMES A DAY TO LOWER LEGS FROM KNEES DOWN SOLD: 08/01/2020 [facility] LANOLIN ALCOHOLS/MINERAL OIL/PETROLATUM,WHITE/CERESIN 06/29/2020 12:00:00 AM EDT cream 113 DIRECTED TWO TIMES A DAY TO LOWER LEGS FROM KNEES DOWN DIRECTED TWO TIMES A DAY TO LOWER LEGS FROM KNEES DOWN SOLD: 06/29/2020 [facility] Petrolatum 610 MG/ML Topical Cream Skin Protectants, M isc. (MINERIN CREME) CREA Skin Protectants, Misc. (MINERIN CREME) CREA 06/29/2020 12:00:00 AM EDT active DIRECTED TWO TIMES A DAY TO LOWER LEGS FROM KNEES DOWN [facility] LANOLIN ALCOHOLS/MINERAL OIL/PETROLATUM,WHITE/CERESIN 06/29/2020 12:00:00 AM EDT cream 113 DIRECTED TWO TIMES A DAY TO LOWER LEGS FROM KNEES DOWN DIRECTED TWO TIMES A DAY TO LOWER LEGS FROM KNEES DOWN SOLD: 10/06/2020 [facility] LANOLIN ALCOHOLS/MINERAL OIL/PETROLATUM,WHITE/CERESIN 06/29/2020 12:00:00 AM EDT cream 113 DIRECTED TWO TIMES A DAY TO LOWER LEGS FROM KNEES DOWN DIRECTED TWO TIMES A DAY TO LOWER LEGS FROM KNEES DOWN SOLD: 09/07/2020 [facility] Oxycodone Hydrochloride 10 MG Oral Tablet Oxycodone HC l 10 MG Oxycodone HCl 10 MG 06/28/2020 12:00:00 AM EDT 1.0 {tablet_as_needed} active Oxycodone HCl 10 MG eCW1 ([facility]) Oxycodone Hydrochloride 10 MG Oral Tablet Oxycodone HC l 10 MG Oxycodone HCl 10 MG 06/28/2020 12:00:00 AM EDT 1.0 {tablet_as_needed} active Oxycodone HCl 10 MG eCW1 ([facility]) 10 mg 06/28/2020 12:00:00 AM EDT tablet 45 TAKE ONE TABLET BY MOUTH EVERY DAY NEEDED FOR SEVERE PAIN MAXIMUM DAILY DOSE = TWO TABLETS TAKE ONE TABLET BY MOUTH EVERY DAY NEEDED FOR SEVERE PAIN MAXIMUM DAILY DOSE = TWO TABLETS SOLD: 06/29/2020 [facility] Oxycodone Hydrochloride 10 MG Oral Tablet Oxycodone HC l 10 MG Oxycodone HCl 10 MG 06/28/2020 12:00:00 AM EDT 1.0 {tablet_as_needed} active Oxycodone HCl 10 MG eCW1 ([facility]) 325 mg (65 mg iron) 06/13/2020 12:00:00 AM EDT tablet, delayed release (DR/EC) 30 TAKE ONE TABLET BY MOUTH EVERY DAY TAKE ONE TABL ET BY MOUTH EVERY DAY SOLD: 09/11/2020 [facility] Paroxetine Hydrochloride 40 MG Oral Tablet PAROXETINE HCL 06/13/2020 12:00:00 AM EDT tablet 30 TAKE ONE TABLET BY MOUTH ADRIANA RY DAY TAKE ONE TABLET BY MOUTH EVERY DAY SOLD: 11/24/2020 [facility] Paroxetine Hydrochloride 40 MG Oral Tablet PAROXETINE HCL 06/13/2020 12:00:00 AM EDT tablet 30 TAKE ONE TABLET BY MOUTH ADRIANA DAY TAKE ONE TABLET BY MOUTH EVERY DAY SOLD: 10/10/2020 [facility] Paroxetine Hydrochloride 40 MG Oral Tablet PAROXETINE HCL 06/13/2020 12:00:00 AM EDT tablet 30 TAKE ONE TABLET BY MOUTH ADRIANA DAY TAKE ONE TABLET BY MOUTH EVERY DAY SOLD: 09/11/2020 [facility] 325 mg (65 mg iron) 06/13/2020 12:00:00 AM EDT tablet, delayed release (DR/EC) 30 TAKE ONE TABLET BY MOUTH EVERY DAY TAKE ONE TABL ET BY MOUTH EVERY DAY SOLD: 11/08/2020 [facility] 325 mg (65 mg iron) 06/13/2020 12:00:00 AM EDT tablet, delayed release (DR/EC) 30 TAKE ONE TABLET BY MOUTH EVERY DAY TAKE ONE TABL ET BY MOUTH EVERY DAY SOLD: 10/10/2020 [facility] 4 % 05/31/2020 12:00:00 AM EDT cream 30 APPLY TO AFFECTED AREA(S) ON FOOT 2- 3 TIMES DAILY NEEDED APPLY TO AFFECTED AREA(S) ON FOOT 2-3 TI MES DAILY NEEDED SOLD: 06/29/2020 [facility] 5 mg 05/26/2020 12:00:00 AM EDT tablet 30 TAKE ONE TABLET BY MOUTH EVERY DAY TAKE ONE TABLET BY MOUTH EVERY DAY SOLD: 06/25/2020 [facility] Losartan Potassium 100 MG Oral Tablet losartan (COZAAR ) 100 MG tablet losartan (COZAAR) 100 MG tablet 05/24/2020 12:00:00 AM EDT aborted Essential hypertension TAKE ONE TABLET BY MOUTH EVERY DAY [facility] Essential hypertension Amlodipine 5 MG Oral Tablet amLODIPine (NORVASC) 5 MG tablet amLODIPine (NORVASC) 5 MG tablet 05/24/2020 12:00:00 AM EDT aborted Essential hypertension TAKE ONE TABLET BY MOUTH EVERY DAY [facility] Essential hypertension 800 mg 05/09/2020 12:00:00 AM EDT tablet 90 TAKE ONE TABLET BY MOUTH THREE TIMES A DAY TAKE ONE TABLET BY MOUTH THREE TIMES A DAY SOLD: 07/31/2020 [facility] 800 mg 05/09/2020 12:00:00 AM EDT tablet 90 TAKE ONE TABLET BY MOUTH THREE TIMES A DAY TAKE ONE TABLET BY MOUTH THREE TIMES A DAY SOLD: 07/04/2020 [facility] 18-400 mg-mcg 05/02/2020 12:00:00 AM EDT tablet 30 TAKE ONE TABLET BY MOUTH EVERY DAY TAKE ONE TABLET BY MOUTH EVERY DAY SOLD: 08/25/2020 [facility] 18-400 mg-mcg 05/02/2020 12:00:00 AM EDT tablet 30 TAKE ONE TABLET BY MOUTH EVERY DAY TAKE ONE TABLET BY MOUTH EVERY DAY SOLD: 06/29/2020 [facility] 18-400 mg-mcg 05/02/2020 12:00:00 AM EDT tablet 30 TAKE ONE TABLET BY MOUTH EVERY DAY TAKE ONE TABLET BY MOUTH EVERY DAY SOLD: 07/28/2020 [facility] 10 mg 04/25/2020 12:00:00 AM EDT tablet 30 TAKE ONE TABLET BY MOUTH EVERY DAY TAKE ONE TABLET BY MOUTH EVERY DAY SOLD: 08/15/2020 [facility] Rosuvastatin calcium 10 MG Oral Tablet ROSUVASTATIN CALCIUM 04/25/2020 12:00:00 AM EDT tablet 30 TAKE ONE TABLET BY MOUTH ADRIANA RY DAY TAKE ONE TABLET BY MOUTH EVERY DAY SOLD: 10/03/2020 [facility] 10 mg 04/25/2020 12:00:00 AM EDT tablet 30 TAKE ONE TABLET BY MOUTH EVERY DAY TAKE ONE TABLET BY MOUTH EVERY DAY SOLD: 06/25/2020 [facility] pantoprazole 40 MG Delayed Release Oral Tablet PANTOPRAZOLE SODIUM 03/22/2020 12:00:00 AM EDT tablet,delayed release (DR/EC) 30 T MAG ONE TABLET BY MOUTH EVERY DAY TAKE ONE TABLET BY MOUTH EVERY DAY SOLD: 06/21/2020 [facility] pantoprazole 40 MG Delayed Release Oral Tablet PANTOPRAZOLE SODIUM 03/22/2020 12:00:00 AM EDT tablet,delayed release (DR/EC) 30 T MAG ONE TABLET BY MOUTH EVERY DAY TAKE ONE TABLET BY MOUTH EVERY DAY SOLD: 08/15/2020 [facility] 25 mg 03/21/2020 12:00:00 AM EDT tablet 30 TAKE ONE TABLET BY MOUTH EVERY MORNING TAKE ONE TABLET BY MOUTH EVERY MORNING SOLD: 07/02/2020 [facility] 81 mg 03/11/2020 12:00:00 AM EDT tablet,chewable 30 CHEW ONE TABLET BY MOUTH EVERY DAY CHEW ONE TABLET BY MOUTH EVERY DAY SOLD: 07/02/2020 [facility] 2.5 mg 02/25/2020 12:00:00 AM EDT tablet 30 TAKE ONE TABLET BY MOUTH EVERY DAY TAKE ONE TABLET BY MOUTH EVERY DAY SOLD: 07/28/2020 [facility] 2.5 mg 02/25/2020 12:00:00 AM EDT tablet 30 TAKE ONE TABLET BY MOUTH EVERY DAY TAKE ONE TABLET BY MOUTH EVERY DAY SOLD: 06/29/2020 [facility] 200 mg 02/15/2020 12:00:00 AM EDT tablet 60 TAKE TWO TABLETS BY MOUTH EVERY DAY TAKE TWO TABLETS BY MOUTH EVERY DAY SOLD: 08/25/2020 [facility] 200 mg 02/15/2020 12:00:00 AM EDT tablet 60 TAKE TWO TABLETS BY MOUTH EVERY DAY TAKE TWO TABLETS BY MOUTH EVERY DAY SOLD: 07/27/2020 [facility] 200 mg 02/15/2020 12:00:00 AM EDT tablet 60 TAKE TWO TABLETS BY MOUTH EVERY DAY TAKE TWO TABLETS BY MOUTH EVERY DAY SOLD: 10/20/2020 [facility] 200 mg 02/15/2020 12:00:00 AM EDT tablet 60 TAKE TWO TABLETS BY MOUTH EVERY DAY TAKE TWO TABLETS BY MOUTH EVERY DAY SOLD: 09/22/2020 [facility] 200 mg 02/15/2020 12:00:00 AM EDT tablet 60 TAKE TWO TABLETS BY MOUTH EVERY DAY TAKE TWO TABLETS BY MOUTH EVERY DAY SOLD: 06/28/2020 [facility] 200 mg 02/15/2020 12:00:00 AM EDT tablet 60 TAKE TWO TABLETS BY MOUTH EVERY DAY TAKE TWO TABLETS BY MOUTH EVERY DAY SOLD: 11/16/2020 [facility] carvedilol 6.25 MG Oral Tablet CARVEDILOL 08/11/2019 12:00:00 AM EST tablet 60 TAKE ONE TABLET BY MOUTH TWICE A DAY WITH FOOD TAKE ON E TABLET BY MOUTH TWICE A DAY WITH FOOD SOLD: 07/04/2020 [facility] XTAMPZA ER 9 MG C12A 66161-751-87 06/24/2019 12:00:00 AM EDT aborted TAKE ONE CAPSULE BY MOUTH EVERY 12 HOURS WITH FOOD MAXIMUM DAILY DOSE 2 [facility] Docusate Sodium 100 MG Oral Capsule docusate sodium (C OLACE) 100 MG capsule docusate sodium (COLACE) 100 MG capsule 04/19/2019 12:00:00 AM EDT aborted TAKE ONE CAPSULE BY MOUTH TWICE A DAY NEEDED [facility] Fluconazole 200 MG Oral Tablet fluconazole (DIFLUCAN) 200 MG tablet fluconazole (DIFLUCAN) 200 MG tablet 05/04/2018 12:00:00 AM EDT 200 mg Oral aborted Disseminated candidiasis Take 1 tablet (200 mg total) by annamarie th daily [facility] Disseminated candidiasis Cyclobenzaprine hydrochloride 10 MG Oral Tablet cyclobenzaprine (FLEXERIL) 10 MG tablet cyclobenzaprine (FLEXERIL) 10 MG tablet 01/10/2014 12:00:00 AM E DT 5 mg Oral aborted Take 5 mg by mouth night ly as needed [facility] Baclofen 10 MG Oral Tablet baclofen (LIORESAL) 10 MG t ablet baclofen (LIORESAL) 10 MG tablet 12/19/2010 12:00:00 AM EDT Oral aborted Take by mouth [facility] tadalafil 20 MG Oral Tablet [Cialis] tadalafil (CIALIS ) 20 MG tablet tadalafil (CIALIS) 20 MG tablet 05/09/2009 12:00:00 AM EDT fabrice barnesd [facility] Rosuvastatin calcium 10 MG Oral Tablet rosuvastatin (C RESTOR) 10 MG tablet rosuvastatin (CRESTOR) 10 MG tablet 10 mg Oral ab orted Take 10 mg by mouth daily [facility] Insurance Providers Payer name Policy type / Coverage type Policy ID Covered republican ID Covered republican's relationship to bee Policy Bee Plan Information [facility] SELF INSURED [id number] SP [id number] WORKER'S COMP [id number] Emp [id number] WORKERS COMPENSATION GENERIC W [id number] Empl [id number] WORKER'S COMP [id number] Emp [id number] WORKER'S COMP [id number] Emp [id number] JARROD CLAIM ADMIN WORK COMP [id number] SP [id number] [facility] Self Insure Workers Compensation [id number] Self WORKER'S COMP [id number] Elizabeth [id number] [facility] SUPER[employer]OR [id number] [employer] Workers Compensation [id number] Self [id number] WORKERS COMP [place] [id number] WORKER'S COMP [id number] Emp [id number] OTHER WORKERS COMPENSATION [id number] WI2 [id number] POM[place] [id number] WI2 [id number] [employer] [facility] [id number] WI2 [id number] POMCO [id number] Spo [id number] POMCO [id number] WI2 [id number] [place] [id number] 0 [id number] POMCO [id number] Spo [id number] WORKER'S COMP [id number] Emp [id number] R [facility] [id number] WI2 [id number] R [facility] [id number] WI2 [id number] COMMERCIAL GENERIC [id number] Elizabeth [id number] COMMERCIAL GENERIC [id number] xxxxxxxx [id number] ANSI-Commercial [id number] 60ulk3n2-[id number] ANSI-Commercial [id number]-31hx-9f8z-610o-xi7a7t1bks0a i5198f6b-38pa-0d8j-852a-lc7g9x6amt0c ANSI-Not a Secondary Insurance [id number]-e278-667a-rzrb-b51v6 u26il3g 48k29246-c128-529m-suyo-u01u6x79vv5k ANSI-Commercial m7l63n87-37q1-4oun-u803-chjh4ar4pn8j v2b63b58-93f0-9quu-i057-qzhx1bf3ry8v ANSI-Commercial c85p3109-60c9-5ulf-97e2-56a23345310o m09p9632-37j8-4pbr-75q4-72h54427193n ANSI-Commercial e4ia2oi8-1835-8202-77bd-88u616q60p9e d3kv0bn8-9687-9333-47td-71k152r92g9t ANSI-Commercial 81434b79-um87-79ey-xy09-48017887m0uf 26757z60-rp38-72oo-mg37-43364145f6dt ANSI-Not a Secondary Insurance 190w9f3g-79j4-8933-3y83-7u266 a1wx558 996v5b7k-14n8-3938-7s03-7g079m0fo931 ANSI-Commercial 18252289-9hhh-9217-157j-zs820540qo79 91343291-8nzc-3009-101f-wy748354pp22 [facility] Commercial [id number] 01 MRN.[id number]-[id number] Family Dependent [id number] ANSI-Not a Secondary Insurance 1011d7ju-7420-9340-l433-0zdk0 1283xb0 2992d6ph-1550-0336-j044-1kmr79952xh5 ANSI-Commercial 49xzmc3l-2g24-06d0-04wa-28sx2l475ug8 95gqwf9s-4k08-83m3-77iw-69ex5w072ot6 ANSI-Commercial 0o1229u2-4143-879b-v791-zo8p8s53d053 3n9166k9-9836-583e-v974-ts1j7g85x831 ANSI-Commercial 4cdc0hf1-f2v6-07e1-v129-9100we9z5qh5 0gtz3ln5-s1c4-80n4-w397-4420zk8s2oq6 ANSI-Commercial h1048142-9368-9u0v-241p-lb7wx1851x3q m3804947-3984-8j7p-230m-ns0tk2583w7c ANSI-Commercial e35228k8-qs62-4084-c5e4-376742051p59 c93750b8-to90-8305-a1j0-798532601q06 ANSI-Not a Secondary Insurance 0uv6tkmm-3559-3hls-510c-73373 726g17c 6dm8iajk-0849-0iij-693t-31540980j65q ANSI-Commercial l3paw6ks-j2o4-2891-5rq2-ib27237x65m2 z0dwn7ps-q2t6-3903-7pw2-hf75105x06j5 ANSI-Commercial 098o1q32-73v1-056i-7394-3do23p9zw859 129g3d15-47a5-552w-2665-6ot77s6qn537 ANSI-Commercial ldv51302-9523-2r5f-4946-g2km2s53wh06 vcf99240-2006-8q9y-1424-c7vd8h07ee07 ANSI-Not a Secondary Insurance 5x01z8s5-u75o-2m18-3i17-t3eld 45jz02u 2l41b3c4-c80d-3f13-6i36-f8qtp40tb85g ANSI-Commercial 3xw72yr0-62e2-7l74-xb9b-c6w0w775lecg 5ij50tx5-24d0-5v73-fr1i-w3p3f535dakc ANSI-Commercial 723ea061-b964-748e-z772-3o328p67r766 218ub030-l019-232e-u195-2m305g36v643 ANSI-Not a Secondary Insurance 47x18131-551q-59ul-q351-51y8f 21g6203 73r00582-621n-58rw-n789-04e7l25m9384 ANSI-Commercial 2t1n2849-mk61-1i08-6l0c-41538ol18oq0 5h7v1501-vt76-3z39-5e5b-65955gt35in9 ANSI-Commercial zpx36z56-98r3-231n-u9o5-340032425449 bmz93k92-93l3-638v-f9b0-320151899370 ANSI-Commercial 7o6128j9-1qwb-3l30-6460-5i7m74424bx3 5i0255r0-8jhj-2q56-8283-2a5q01886tl5 ANSI-Commercial 139z3509-5022-47j3-vs97-9f098z99n7ab 441u4183-9186-97b1-qd05-7p109a61m0rr ANSI-Not a Secondary Insurance 8mio8479-8642-06fo-b672-7jm27 g64t0r2 2lcf5972-6469-67ru-g143-6fz51p94q2m9 ANSI-Commercial 2w6vk329-bn7z-15pd-9991-3265t15t11wp 7i2wy782-wi4p-47jk-1566-2039u65m05he ANSI-Commercial 85a6921l-2q0d-170i-9lvn-phin08748k12 79o0677k-3d0h-812y-9xvh-icbh55220i09 ANSI-Commercial 6fk9mm9q-9p5z-1cma-5fzm-2b262026ir82 9ai9fx4l-3x9f-7tud-5jny-5e425225pl88 ANSI-Commercial cw214244-8x03-716o-y18s-5890f8n090k9 kw457818-5f79-017q-t01e-1933w0v742a9 ANSI-Not a Secondary Insurance 70e14cx0-gg6l-2q3z-7vf4-6b601 8600234 99i04rd5-hs6z-9a8h-6nt7-6d6774344649 ANSI-Commercial 63464864-177w-821j-t286-p7rl7d6j3c8k 64736131-728q-856w-q148-u7rd3v4k8l2v ANSI-Not a Secondary Insurance 758178xq-j51e-38e0-9575-43m04 17c6qf3 277278sk-y97d-28z0-8127-17i1879i5ew1 ANSI-Commercial 8b315f0u-kkpz-151s-bu2k-3gm0az2w454a 9n992v6c-foie-662a-er1h-4jv6bu4s554b ANSI-Commercial 6hx22208-e2f3-7410-178m-g45rz3m5p682 7yk61039-g8m8-7458-978s-s20qe2m8a837 ANSI-Commercial 6kn8s136-cr75-377m-z12a-i747lr7q773r 2sx2y101-mg73-459t-o79w-t220wa1s440u ANSI-Commercial 29s00187-zh5e-6u66-0yv7-z2ounu6i759a 16l16079-bn3u-3u46-5oz1-c2wfrl9j050r ANSI-Commercial 68w4v751-5n4x-417s-acc8-c15p895486ns 07v9s052-2p2x-082v-idp5-z56y764979ul ANSI-Not a Secondary Insurance 5z73yp0g-ea39-1m49-in45-7z2a4 39v513w 6c03pa0p-db85-9n48-bx54-6f4j700l413w ANSI-Commercial 82792u01-r6d8-2518-3m95-0013552rl71p 16388k62-s7k1-9820-9z46-2843124hk20k ANSI-Commercial id59xkd4-7g06-5c58-6zz2-oo7d5d6rf7e1 yq25rbt8-2e50-1w60-4oz8-qf5q5d3qy5l1 ANSI-Not a Secondary Insurance m4w6e0w0-91bk-3380-4392-43605 1h24315 t5f1t4i0-92az-3634-9666-324567p35063 ANSI-Commercial o1198054-8714-2189-u1j5-bq9u7j3v0m26 o5771047-1751-3111-j8g3-np5c8o2e7z30 ANSI-Commercial 0ly3yu92-7017-9uak-58e5-xe0q1642kip3 0wi3cw97-9751-8qru-01o5-af0u3040gre1 ANSI-Commercial 949yej5u-xj81-3q90-o64h-d0ha37b8m789 362gwh9t-ep55-6c00-m02q-f8at16g4y396 ANSI-Not a Secondary Insurance 0253r3q4-1i2m-88p0-x0u2-94kwe lus40q5 3792u1d2-5q0g-03z6-x7q0-97myxeei86u7 ANSI-Commercial 6q2g20t3-0tf7-5s47-5z2t-9723519u2547 1d4u09q4-7et6-0c85-5x9g-5482882z4827 ANSI-Not a Secondary Insurance w42877i3-i8zs-7jp8-drbv-oqk1x 3nz271k u21708u7-b2mc-4kz0-mfis-vii6h2cl039v ANSI-Commercial 41976441-391u-3918-y1n3-ri2950f54977 61287703-287c-0645-o5r4-my4736u93992 ANSI-Commercial 92226270-c5p8-3989-895d-0x72421ix78u 48066868-g8v7-1843-752p-7l17828qf64h ANSI-Commercial y488o382-qe91-67x2-e08z-fa2zo9d0u37y s137u679-jj01-32c8-f08u-kn5xi3q8r55y [facility] [place] [id number] SP [id number] ANSI-Commercial 0r673d4o-1r83-104y-7810-mhc7pf391995 0j366s9z-0m19-447b-0789-irw8st370785 ANSI-Not a Secondary Insurance b8362y31-916z-57g2-1m3q-b447m 40mn415 e6704c55-681e-65d4-1s0u-a191q15uz393 ANSI-Commercial 2e3o1ba6-8953-7650-705m-397i2i27y581 2q3h0ym2-8856-8946-931u-017j5y33d344 ANSI-Commercial 2k31h749-fq29-2cuq-94vy-0h9q857s015i 0o78k982-ox83-1bam-98hf-8j9k661c891e ANSI-Commercial x074n36m-q8h6-0702-4v0g-584st10837af n509a48z-i7h4-0539-4q7t-516rg75517jx ANSI-Commercial 88rx07qv-cqke-0v6x-0074-3923958a430w 90tu67tr-crvh-4i0b-5848-0692880l372h ANSI-Commercial 9w9599i2-4e66-2658-g04l-9j4g9108buz7 3i0202r4-1f58-1687-r93j-2x5e9658hcy9 ANSI-Not a Secondary Insurance 26y31j3p-95b3-7396-n740-s0p9t fuv6202 62x23q2h-10e2-8133-k861-o5w8ooxb1674 ANSI-Commercial 318qkc52-j74l-61cp-0g07-g749625602li 841olm99-m73u-22wu-4x12-o224012452ma ANSI-Commercial y8600937-sio8-49k7-kyu3-g4k66nnad246 k4537186-cgs2-33i1-shc0-y6b95pphi009 ANSI-Commercial 00j6t471-xox6-79m1-z463-3yi730uy8i5q 50n7f177-tnf4-96y1-x739-9cb715wm3n6w ANSI-Not a Secondary Insurance 8x428778-7793-9pi4-f699-54n03 p2i376z 1w424603-8338-5lu0-h494-31l90y4k784z ANSI-Not a Secondary Insurance 11274813-32h5-1224-8436-6b30j 41981s4 78948032-78n2-4864-1313-0t42e38688d2 ANSI-Commercial y6571w33-2t04-5r74-yx79-3z91qw7p9906 i7335d64-3x57-3h47-ue23-0e15yd7n9756 ANSI-Commercial 839iv3j9-v478-9a67-879f-i27882t97gop 330qq3b2-e947-7m00-255i-s34229x13pvh ANSI-Commercial 2993jt1x-425u-3214-dv4k-14820e0n7880 9980fe1a-751t-0681-sw5c-45877v4a5981 ANSI-Commercial l883565l-3893-16fv-m683-wrw63e1629fw l360550z-3425-79nt-r726-ujy43x8978ol ANSI-Commercial 06rb9w1o-74k3-60b4-0404-9l1570e5668y 57ea3b3d-31x5-18f3-7994-4a8702r9741h ANSI-Commercial 56hl617l-3mv9-37tl-6701-3788814t81h7 82km284j-8hb3-81lf-2437-7861237l92a4 ANSI-Not a Secondary Insurance 258n42d4-5cx4-2qpp-c823-pwq20 ji04jbx 478m31m9-9wu6-1uif-w280-zoa86zw54eoi ANSI-Commercial 34j2r7qb-1839-23j7-gtmr-90p11a153d64 61a7e6mx-4990-35l8-aoar-44h04t598y10 ANSI-Not a Secondary Insurance 1sr0j7x2-149a-6145-2k5c-554r4 5i976fb 4tf0z9v1-041z-1513-3b7d-878j13k269kl ANSI-Commercial c2xa81v0-i656-17k5-1726-40g97o54rt67 w3hg33h9-u962-42e3-4568-39n83h26ys32 ANSI-Commercial 5d200b49-rm02-535m-4068-2re58c3814sn 3l319c64-oz70-151h-5975-3fs73u1427pq ANSI-Commercial 2q576j91-51aq-6j3r-i9t5-2u55k28a14l9 7l246a52-98vc-0b9y-c4d6-2a32w68k85o4 ANSI-Not a Secondary Insurance 9mo5o0g2-0gz6-5352-0l20-42508 26f4z3e 0lh3s5t5-0ot4-2835-5w63-3500456c3i8c ANSI-Commercial k2f4pw36-19jv-5k98-2300-ujh71w7c9r30 l9o3ma48-60cp-9a29-3872-kbi52g1m4e25 ANSI-Commercial 54sghi40-18f7-0ygs-fpaz-62158d2frc2u 48jspk53-55c6-3oih-dbln-89541h9wix1s ANSI-Commercial 98943y39-u1t4-6078-87sb-006766da7e09 75637k11-u9o1-8932-48qm-979378zx6k53 ANSI-Commercial w09834y4-wl15-869u-1y26-51s0x039c5br g17765q9-nu59-769v-0s06-15n2c807f5lv ANSI-Commercial 197198mb-7a3b-356j-t197-7547k4l261b4 196219li-0c3j-301w-a976-5146y5v898v2 ANSI-Not a Secondary Insurance 0410r75l-1129-5p58-fjcz-d4615 5m75d8q 5676h78t-0729-1y91-cdix-g24531e21g6q ANSI-Commercial 88w1d373-z0b4-2490-j08s-4504j2vm7m31 21l4r070-p4p7-9675-s97f-7348l6vt1j64 ANSI-Not a Secondary Insurance 4k163scq-32z6-1558-4730-0dq10 r70h334 3g753utw-06i1-5140-1818-3vi35h58l745 ANSI-Commercial 3o5u3141-92t0-2ls1-9066-403y468995py 7c9k3797-21i4-9co7-8458-919u314903fp ANSI-Commercial 51793y0k-9a59-3213-95y0-8pkn8b242r43 28127c8z-3v61-8048-84u7-5yvg1w429a87 ANSI-Not a Secondary Insurance ishnyd83-11be-0x24-vd4v-6jwf1 94r39hj -28op-5t88-pc8d-8qhh127r45mb ANSI-Commercial z14g3320-8098-871o-ijz3-65zb22v82796 d96x5751-4461-113t-oto5-80ex51e78472 ANSI-Commercial 38r3k8sw-8v31-59t4-9g04-942m47n601d7 83e4s0vg-1q40-51x2-7w79-531h18r789o1 ANSI-Commercial 1559o3h4-7798-14ck-pt6t-0166k433q54w 9711i2n2-9952-65gt-tu1d-0927e128z29k ANSI-Not a Secondary Insurance ho625n09-mnma-145d-5ca9-s1z89 0xm9551 hr201r25-ymct-043w-4uk6-t9k340ju7828 ANSI-Commercial 1230k05p-5072-14y7-g2wg-p3sh95wc3w2n 9472t22f-2404-48u8-d0pt-h9vo72zq8k3u ANSI-Commercial q96d2q87-ytrt-607k-0438-829u5828l012 e87r9k65-ltxk-137c-3720-313o1307t199 ANSI-Commercial v5q94m0z-1i05-4229-p75n-kg415008r42c i5s81f3w-7j08-2652-t04r-de914212w67s ANSI-Commercial 6bz50661-5850-97m4-qunw-f6hr265xf19v 5bf22629-2649-41s9-mrgv-e0zf616sk41a ANSI-Commercial u74ob4f5-000r-66dt-6d95-46v70gvusdh2 z71wx9o5-420l-42vx-2s20-44j07qogopx6 ANSI-Not a Secondary Insurance eaqt14ma-2308-6n91-6172-b9zu5 2c8e4y7 wbdv22js-1487-2y15-7551-b2yr76t8y1u9 ANSI-Commercial 7di0s5ef-m255-4d28-23wr-w1x40b243715 0ow2v1yj-y519-2k66-74ra-f4x04u045491 ANSI-Commercial i4g7n013-9ynj-59w4-qd0s-i268397z9trq v2y4h495-6ldo-16n4-st5n-j574698n4tmr ANSI-Commercial 7243f39j-974t-3ip4-91n4-6a8m3u975807 2959z22f-970w-4wh9-13g7-0q4b8k056477 ANSI-Not a Secondary Insurance 89251jn9-io28-7198-2z32-5092g 262901y 29350az2-qz96-9950-7w02-0798c708364d ANSI-Commercial tay412pj-11aw-74nb-6900-vh26177s3834 lsu277jl-61mo-11zf-1898-yx01909p0900 [facility] [place] [id number] [place] [id number] ANSI-Not a Secondary Insurance j7i003f9-v1r6-610t-1i60-4rr0f i277q81 h6r197a6-w7v8-383j-1w00-7tn6do884v47 ANSI-Commercial j5t72011-21qn-25b7-rx67-2re560kiv20x h4n74303-78ma-10b8-cs51-9vh403sfz19b ANSI-Commercial 197unu03-f6m2-9b85-q893-0148h8198202 658xar55-q9d7-2n44-p149-7206n7788341 ANSI-Commercial 3mtyk60p-m27d-7r0u-kfwo-0weh9439176a 0jvxe18d-p21x-7v5n-mfeq-1adb0041170b ANSI-Commercial f90a13te-z6q7-499p-3je1-se1wq5624v65 j72f28sw-g1k8-461u-0tq1-sk2gg1211o07 ANSI-Not a Secondary Insurance 0k050w72-4979-3qkd-r6w4-609l9 44089m8 5c253r27-1455-5kho-g3i0-226t817104p6 ANSI-Commercial 4275ag04-9nx1-6733-k9xf-pb3s9yx86s9q 1270vp84-8ol4-0896-c4vq-kl0f2km67l0i ANSI-Commercial h3f66p8c-km54-1988-062o-djc3x0h2166m a4s13q8a-dy23-5987-507q-wnd5u3o0747d ANSI-Not a Secondary Insurance sl28yv3y-v3pg-2351-ptes-u0cat bml7m96 js06yq5q-x0qg-9755-ptxd-x4fmnlbu6d07 ANSI-Commercial q5d62v79-8380-7761-18i7-1mz2933d448n t6n73o15-3893-7656-79n8-7wb1139q843y ANSI-Commercial 5265c297-f60t-4o7a-g07i-9wf315755y9g 0621t417-f08p-2x8i-p09k-5ax676328z7g ANSI-Commercial 3d69734q-ow53-6y0g-s744-n75do7d3l242 5y67455c-rh72-5y6n-l759-w80pj1o3t812 ANSI-Commercial 2wah7720-0vx7-21e4-izyf-0049225ey7x1 1vzp4516-2cs0-17l6-vxzo-4111952fb0n6 ANSI-Commercial 1my1188b-7pw9-3266-x533-iu65tv9xrg18 1uh7451k-4ui8-3923-e879-wp17gi5kan41 ANSI-Commercial e8a8f3a0-350o-7zer-447d-kq95l6vuzc3a g9q2q8c8-535e-6dhx-889g-ie82q4atwi1c ANSI-Not a Secondary Insurance 9996u1b2-73nr-3d1o-bnt7-4s901 w5q438t 0858e9o5-77ue-8z6l-kod0-3v045o7f503l [facility] [id number] S [id number] ANSI-Commercial 52l0o907-90l9-669j-ml77-m0x9297q87t8 52c5y301-69i4-288i-cc64-d3h1966h20o3 ANSI-Commercial 03dgp037-5ou3-6668-b1en-35204mh60b95 50plz444-6mk4-3729-w0fn-60223bc85t87 ANSI-Not a Secondary Insurance c4767987-dud5-8xw4-1485-11o7n lt8jvp0 b0424125-pxd6-3uq2-9636-03f4pms7pnd8 ANSI-Commercial 70p15892-5w58-5836-91t3-k6g1n37f4opt 83s68451-1f62-6910-56i7-o4z7r84u6odn ANSI-Commercial 4l1l8txf-5v25-114w-3955-01n78tfqe9c2 8u0b9boh-2c45-866r-9609-30o60kgvr0e9 ANSI-Commercial 8jby48y6-4u8a-13l6-9403-21l11roin9k9 9wik86w7-2b3j-14p0-9414-99j30ijcy6g1 ANSI-Commercial b029lf48-le14-03rp-t4z0-48k355w0aig6 d740sd55-tj75-81ex-n4w2-09c760j5lyw1 ANSI-Not a Secondary Insurance 066q159r-1831-9m56-3257-6y025 622db49 564i484k-8875-4n95-4417-4m165295xy94 ANSI-Commercial c2b08i89-1v51-8x1c-4139-8p7uun3my187 i5a59o34-7v71-0i6g-2479-8x2qbt0xv918 ANSI-Commercial x405889i-2c33-77u7-8658-64m9h17d9g90 n978205d-4b13-75d8-3070-37g2w28l0g72 ANSI-Commercial g1es0l1z-738d-1bt9-610r-5098k761gp76 t3sn9r1p-232q-4le9-955f-3865k814pp22 ANSI-Not a Secondary Insurance np4msg92-o80k-16z3-82t8-5g615 nd15160 oh9hek93-r09p-91u5-45t2-9p824my88339 ANSI-Commercial ge4ql096-zc9b-470c-84ht-12v4i8113u01 fw4vg280-vz5f-118e-97ak-30a3g5668h38 ANSI-Not a Secondary Insurance dlwdhi0p-u51m-8c80-0d01-dfju6 c2qc936 maxima9f-x31n-2v44-6o37-wych9q6sr844 ANSI-Commercial j953221t-j834-0357-32d9-65p16j59w863 b089858a-s425-5229-17y8-95b29d70n459 ANSI-Commercial h9289n10-893l-69v0-ey7h-4r28107j2ux6 s0409f22-335f-45x1-nl7b-0x00346j6yi7 ANSI-Commercial 6s0m6098-mbfd-9888-3c23-0ig57a85efx7 8u1j0236-agot-6873-7a93-3dm87r80qps8 ANSI-Commercial 4dmstb90-88qp-3sm0-2089-10j3394c45b4 2ibpju60-64ja-2st5-3615-04u2340h67m2 ANSI-Commercial x0v8dd21-64p9-5e25-yzz7-7952my9p2s18 j5d3wt47-52d9-8o14-yxz6-6658ns1r5n23 ANSI-Not a Secondary Insurance 105788dn-6hwg-95mc-625c-0ydrm x94jf18 196471pw-0eiu-36pp-244k-1zmped22vm34 ANSI-Commercial 710v9htf-q980-0065-qu84-t44dh7b436p6 191q9iub-s366-6480-zl80-e63mh0f447o2 ANSI-Commercial d6s1928z-v58l-225q-o3h3-25t23xz15p24 j9p4439b-k68m-160a-e9z2-78k61zh84g82 ANSI-Not a Secondary Insurance 3ejn45tu-2x8j-326f-7x59-22244 jjq5900 4wna19go-3s1q-948n-6f65-58465uxe9268 ANSI-Commercial 16186u3z-0361-7550-dj51-58884axl4dy9 82154v7h-2634-8796-mj44-76651rbu4nu1 ANSI-Not a Secondary Insurance 00085284-n959-32af-w5c6-31626 3hcu02r 93475907-z099-69uc-k1b5-580770vtz11f ANSI-Commercial cr9734q9-7x21-46ja-25t5-6cqy9455j9a5 fa3854r2-9y67-55ua-74e0-8pko0667u1p0 ANSI-Commercial 1y531h69-9t56-860r-8a05-0s6529b02972 4c569q85-9c99-840p-1c44-1s2221m84392 ANSI-Commercial 5a3l3i17-8z70-58fr-03y5-q7m2t5h54qrk 3e2g1w35-6o04-41la-49j1-d3t2y8w69kbl ANSI-Commercial 1s52hahn-01c3-4o65-z2yi-c3x3q91m0t58 5y89omsu-10e7-4o22-u5zv-n4s9l41x9b26 ANSI-Commercial 19nww24q-r35e-5d20-f288-kbbgg2fs4d56 66vtk09j-v68h-4u07-r003-eyuxa9lk5d24 ANSI-Other so2h8779-604w-9850-ajr7-1306079t3a80 tg6q2330-065v-1536-yvy5-5334551e8j01 ANSI-Commercial 35950893-9m7p-0d6n-2z08-xx089fu8g045 86162080-1t8e-8o2v-4s40-nj873ul8o006 ANSI-Commercial 9v8yd6t6-8sz0-75o6-4e29-4v2411zm4561 1t6rg2g6-8zw5-70x0-1b29-6w0063rl8053 ANSI-Other 4m0kv353-2w90-050h-dv64-uh6q50v8p679 2s7qg691-1k79-903c-dt22-vd7o98s7p931 ANSI-Commercial 7fbh0804-297z-6wv6-ry0a-w024y657m647 4min2807-337y-9ug3-ue2p-d653j148s710 ANSI-Commercial 507xy2v9-6r52-529d-94f5-0uk21tvad9qy 450ka5k2-6i77-043s-73l5-2jg56naea3mj ANSI-Other bd492x5l-19ph-6m46-2f18-6z545n965935 td764t2d-06ek-9x52-4v92-0k352a606036 ANSI-Commercial 1y3597aj-z4sv-990f-m021-je678338541x 6q1393lb-a7fi-420c-v684-il382951195d ANSI-Commercial 612842u6-332c-2753-34xc-a46b8ny6z925 165891e2-933h-0825-38au-t53p2vc1y475 ANSI-Commercial 8z36626w-7742-9x91-prpk-8w497887i2zw 9z90442w-4616-4e55-stqz-6a225098o2bu ANSI-Commercial 061wtvy6-22v0-888i-p671-s6bj2687o129 565qrif3-81b2-035q-d520-u4kw5623w351 ANSI-Commercial 6967r4b1-k1wk-1w3r-1955-4045n2t7i7c6 0526q8p1-t9uk-5n8d-6063-9231f5j9l1i5 ANSI-Other 37197604-86o7-18d3-6bi5-292b8z3mx474 82063161-43j0-85x3-5sa4-911c6z9ob606 ANSI-Commercial x5198r43-4f49-1li8-kgbp-55946k8pr6h9 s8622s04-2v49-0ti5-xobc-51594z5fn3r3 ANSI-Commercial 4q6b1j2o-g274-9n8i-cq8e-yh4p300r9072 4r4g7e3h-d262-0v3v-ya3t-ay2w081f3416 ANSI-Other jlui8x43-ut4g-7287-i5p6-57bh638778p7 ayfg0y94-hn0u-8969-a7a2-38mh544213v6 ANSI-Commercial fz099633-b948-8140-2641-w94p3p6qc712 bg989052-b807-9696-7947-p56o3j0ia232 ANSI-Commercial a32226t0-2p26-003m-1u7g-98net5599821 k75954e2-6y43-992q-5k0t-62glz2533456 ANSI-Commercial n1sa73l9-q1u3-7keu-dz4u-9d2o8b8wq0ks p1vk05g1-s9d9-1wcg-ey7q-8b9u5x7qw9fm ANSI-Commercial 814a9oki-0249-0le0-uxot-39u8361v56v3 270d8kay-7221-0jk4-jrsx-31u0668g69i1 ANSI-Commercial 5713g873-x4he-30eb-7p8g-7ln291c65784 2225d714-t4me-27rl-0q7z-0es047g06801 ANSI-Other 168y9753-oaqj-352u-8578-36732625w449 246c1166-smcx-432e-1142-04572411e603 ANSI-Commercial 825n24oq-5417-4622-sw53-792n6344l88s 474y05db-7943-4945-jf43-076m4579y69e ANSI-Other 2o7j2e9v-33cr-4xqx-50v1-h0k204do77t3 9p4b9c2b-56ab-4sif-41v9-a2e258qi85o2 ANSI-Commercial fowfq8g9-3980-42u2-8593-6dxo91hxva2x hfwzd4y3-2768-62b5-3861-7bou87cwjo1o ANSI-Commercial 1xs9530o-6643-8y7c-oy14-105n016c6cx4 1vn4558x-3001-0m7f-pi41-512k232z5sg0 ANSI-Other 1795o7c3-57ic-71z1-rd56-11nwi3ax1205 7126k7n9-52yw-67a8-zf23-36kdh7lh5623 ANSI-Commercial 1i2l7x94-xc12-24h3-d5o4-qnjy888041kh 0v3h5m59-sy76-47m3-c1w8-odkp392014li ANSI-Commercial 6a2qb766-tvm6-0bb7-71jr-58x743602qo5 6c0uh056-fyq7-8qs1-64nq-68b644185kq5 ANSI-Commercial 97i1m60f-i428-90o8-40yc-g6qy45k7xb9k 00q2t17y-o650-17y2-42bi-u0fj79t6xs9e ANSI-Other v4we6831-b778-9573-g4d8-c8hcsna2e57m g8uy4083-u552-0938-t6w0-o4ngjzy4j36z ANSI-Commercial 875l5ron-wj6i-5654-3k8o-6t2b851y93w2 731z7evs-vu9n-1387-7c5u-4r3d101i99i0 ANSI-Commercial 62zb0m7j-324u-1418-zqj3-9fh649492m53 52hc7f6p-023t-8202-qvj0-6kg276233i25 ANSI-Commercial 9b036e97-qu44-3184-641b-585n045831tq 0m145p05-zu75-8607-417j-363f568322rc ANSI-Commercial 5189j9f0-7561-19ho-1s18-3w33791682i8 0874j7h2-3461-37go-0x50-8f29880052r9 ANSI-Other 2511o4b0-6k45-7563-2z5h-0ec17s0uqx66 7632g1o9-2k00-4733-4m5q-5jv57j0zgc49 ANSI-Commercial 58p67024-0716-1p8n-p3i8-5g022nu57288 26v54138-9488-4b9u-p3s9-9s995ed94228 ANSI-Commercial 7rx95n9a-i8cd-6959-1s8m-n502a0a9229w 1cz32b9a-a3ma-1696-9u7f-v927n8h0110i ANSI-Other 9bk27i13-11d4-0ps3-xrgl-88zm6z5bd014 7xv73g64-65v8-2fb4-rpjp-03ix4r5yo766 ANSI-Commercial 165335m0-73xt-8740-ln96-187i2w165v4o 271730d7-15fy-9383-ih27-050t6b472o2i ANSI-Commercial 4rp06219-289v-7ksc-dqa6-5r17m1a0km17 8sd39209-133h-7lqe-odb1-3e48a5u8sm62 ANSI-Commercial 42904084-ah9v-12bp-2v0k-1va05rx88est 91797281-sr6z-65wa-1c2v-6dl55yz35jct ANSI-Commercial fvr8bt49-6j74-6h97-1d9s-7jt50925jcim ala4ed00-1h06-5t48-1a5s-1dt28164chha ANSI-Commercial lcj21f0i-u865-776d-h9y2-65usi8r1n778 vsc66b6f-f304-008i-a3o4-84qff5p0e481 ANSI-Commercial 9p93i8s6-v362-0s96-vt4n-p8032x2b2rq8 3p06s3q5-z590-6c62-nd6f-y0005g8b7rs0 ANSI-Other 676s6f26-8g92-4s55-fqx4-1tviyf9r126r 064c0a67-4k15-1l12-uum5-7lqhnz0i831x UMR RISK MGMT WC O [id number] S [facility] F6521 ANSI-Other 0x16690x-425b-3101-2msb-75z5sx572ac7 3s94946w-250t-2930-1vhq-83z0lv133va2 ANSI-Commercial 26662o60-sj0h-93h3-1188-4586fj106558 35368o12-ci6g-15c4-4536-0348jd393868 ANSI-Commercial 6t35v53c-a147-41oh-3u4e-79i06766ak06 1v80g77l-c765-18hz-3j1d-25p99166cu61 ANSI-Commercial 63g1o691-65s3-7179-lylv-57p51214529d 30v4d719-43j4-2934-sxya-09p56702126m ANSI-Commercial 7j3g176o-4m42-8e34-y8yh-3d9r16t17j9r 6n1p002i-6z38-3w99-b9qx-3z8n49l29n5h ANSI-Commercial h45l7v6y-8li6-2129-f0h1-55zp96911211 h40p3q7h-3uf9-1390-u1v5-06cv16108258 ANSI-Commercial h99z08jt-p575-9289-a7t2-40h94v1l9sm2 i78n26dk-c075-0530-g5g8-93r47o2w0jv3 ANSI-Other 75g656h8-8i25-3c7o-93r4-83j3n937q1m2 71c220q2-5j40-4o9u-10k1-11c5i814a4k5 ANSI-Other 16l99wx2-h4au-6381-f24a-3kw66ev15935 07v95ry4-o4co-5932-d03p-7fu69tj15362 ANSI-Commercial sl864e03-3564-5q9i-d968-2627q1552976 hn821x09-4030-2i2y-t392-7393b0482409 ANSI-Commercial kb899k60-q46x-2257-4rq2-3hd7476q3lp9 qs313m50-i44j-7028-2wm5-4wj5157f3cm3 ANSI-Commercial v668ipj5-305w-4dhd-po85-hm9g85yw7553 w579zrh5-176i-4tib-dw66-gf7m52lr2834 ANSI-Commercial 07m9c009-4670-9sw2-op92-27646bo6211u 54s8u713-7565-3hf8-qb51-15695se1952l ANSI-Commercial f43mk8yv-67y9-1935-7804-y6708wrfay11 i10wq2si-02z2-4253-9517-y5681glblf65 ANSI-Commercial f3259221-0zp3-709s-97zr-1f3zd8y582cu y9468594-0ok6-013d-97co-8j3eb6b346td ANSI-Other w3ju5z85-75rz-3279-2723-h322o3n8407t d6fp2e99-94pk-1237-5036-s071w8t1630x ANSI-Commercial 1yr0hxi0-7277-2ns1-0eq1-76w46bg48kg4 7aa3lvg1-8724-0ny0-8wz9-59s50zw70ni1 ANSI-Commercial 0749c3a9-6693-8645-z2g6-h77xr14027y1 3874g4r8-2620-7111-s6u8-j70ta83143w4 ANSI-Other 8dz662g6-21u3-7om6-3959-8p3m33vt9ba3 6wg236v2-60g5-7tj7-5912-4k5f03wr7jh1 ANSI-Commercial ctb37yag-2zqt-90l7-8a7h-05u186i7380g qoq18xbl-9mmd-51l9-1q0v-51j181c8229k POMCO W/C OUEM1342 SP BAZL4258 POMCO [id number] WI2 [id number] POMCO W/C PFYB5092 SP HCOT6338 ANSI-Commercial l6g9d449-h8b6-3023-m1b2-6qsgj414393m j5g1n252-x9t9-3041-u0t3-0hzsp351381w ANSI-Other r1s38h18-t87p-38w7-35d2-x04045rtz98l f2r09s74-h43t-47t4-14w6-d73052wug75v ANSI-Commercial b551t352-76qe-3z5c-e8yi-te1h79gdiz9g r406f491-35cp-1r8z-d4nq-yy3u86flya6w ANSI-Commercial 46s1s4s8-9nae-3152-060r-837p001g9400 83o6d2v2-7fyz-2539-225a-561e453d3359 ANSI-Commercial 9wj743k4-5y3i-29nu-py18-41481m2196j8 7ov007n9-0z3y-45pk-kx95-60581f4401a2 ANSI-Commercial 2cw8o2l9-ytk8-9u70-y3ei-872w702xl10t 3ak3y0x7-hid9-4s96-q8id-618v707ip07x ANSI-Commercial 512655f6-2f86-15wg-jpr0-y6d1t340p707 769222v9-7m15-93zp-xik4-k7q6e722d582 ANSI-Other lb1q16i9-9g8m-8592-1ry9-1609ba9tb6w1 hp2e58u3-9h6j-4328-0fu6-2226ir6fs9y8 ANSI-Commercial i7w5kb2f-1014-808r-941i-8r48p5115772 s2u7ah5x-2394-626p-861x-7j06i1159854 ANSI-Other l52382p9-4s83-5192-9a08-u874dm61au76 [id number]-v891cs96vq06 ANSI-Commercial 6xzt8yzk-0u5e-9487-i690-1727tej6ij44 4qii8lkb-3i6a-2592-s063-8508lbo0nu75 ANSI-Commercial 7t387689-qag4-2h2x-0309-85879sxj2kw0 3k675456-vth7-5s0w-3110-44048wwi3to7 [facility] Medicare Commercial [id number] ..[id number] 7.0 Self [id number] [employer] (WC) Workers Compensation [id number] ..[id number] Self [id number] r [employer] Part B [id number] ..[id number] .[id number] Family Dependent [id number] ANSI-Other x9142e0g-6r9g-15bx-i1uv-9a8ye7j0l31u x5496d6q-3q4b-03iq-k8ud-5l4bi8m1t76p ANSI-Commercial p920u4k7-c9sj-4185-7ry8-uo2od37r481k u271w9k9-j2ff-0948-3ic5-ou1zf79w850d ANSI-Commercial j42761n1-6qv8-0k4l-21d3-5428hl6379r1 i98841n9-8cn6-8x8g-84n0-5572nw3843x2 ANSI-Commercial 1766758r-1f09-6ur3-b897-3chhoz98k744 5980968c-9k25-2im1-n870-9lpeua78s006 ANSI-Commercial 851t7a12-j928-6o1g-846c-0281191703k1 574e4e08-c627-1t5o-352j-9734492996d3 ANSI-Commercial wz193809-s2rq-34hb-y305-km893vkc30en mq103235-b2wg-65xf-z037-or550zww93hr ANSI-Commercial 57585m74-1430-0030-799j-3s95936l03o9 81555u64-4519-8711-251z-1f05723w63d9 ANSI-Other 677v7505-h649-7n0u-ro74-1hz5c7o79bf6 738n9860-o600-7c9s-qz04-2ro4w2e59zj8 ANSI-Other q55c9y58-4274-6m70-g1sd-8myy82w1jljh v09l4a51-4633-7z01-a5oo-3llz53u9gmzo ANSI-Commercial w16m82q3-7762-1825-v2r4-5bk8p3r205eu b69d75o0-9290-4961-t5f5-9hy0u7j049hh ANSI-Commercial 3774a45l-28mp-96e4-l35y-88865730ul51 8402w78z-61qj-52b1-l88o-33181106ps15 ANSI-Commercial 90nr2d07-nt0l-3u3m-e460-97j9589x3c8e 48cn5j43-jx4d-4v7y-m707-18r4671q2m6w ANSI-Other 0766rd44-6526-5341-nd67-60711lk34653 9676fz11-4208-0308-ax33-52599aa28504 ANSI-Commercial rbwtfa3u-g55e-1219-6952-8436bek4b1c6 wpmttc3s-v84r-2351-6745-3595ptg9h9n3 ANSI-Commercial n6cb9342-w676-9n64-d499-i8274k75jagt c1xt0861-j510-2r58-v251-o2715j06dmnh ANSI-Commercial 0w212kcs-5612-4p98-kt20-x339w437fp80 9p842vqd-2092-2x33-bu38-v954k994hd53 NATALIA [id number] [facility] HEA [id number] S 1 [id number] WORKERS COMPENSATION NATALIA [id number] S [id number] ANSI-Other 50xez11f-21jf-16j9-1221-d44dhm72pp44 53wdw44n-24iz-38v6-0014-n35rxg75vy67 ANSI-Commercial e994rli5-l85c-4y10-4ne6-fev05786nau2 n634jcr4-t83o-2v57-6pb4-cxd77137lhl7 ANSI-Commercial 59846866-0itd-6w18-0840-q2u3h50b7p84 19128443-1vca-7g29-7919-a2d7g34v1d92 ANSI-Commercial u4j58110-7930-3v2r-g2g6-63o0917fb12d j1q65505-0846-0c5n-g3j2-15e3923oi26b WORKERS COMPENSATION NATALIA [id number] S [id number] WORKERS COMPENSATION NATALIA [id number] S [id number] ANSI-Commercial 381336qi-6l11-5r0i-k912-c0p15c60vc2a 347547bv-1t59-6t1k-w918-v3q74s08ke9z ANSI-Commercial 0v138z0g-06a4-1770-d098-848qq8ne5677 0y618p3j-63d4-3512-h188-335xg1qf3037 ANSI-Commercial ff6h981u-j906-7037-n009-v79m9t571286 ap2h453i-m335-1770-t041-u30c4d038725 ANSI-Other 2x1i1769-7050-405i-gl29-172311k24myt 7p2x6655-3723-855c-oi45-627044t05idb ANSI-Commercial 520571tu-70x8-139k-577v-wg3p4778kxuj 808350ha-78l1-361d-045d-ww8k4718jkfx ANSI-Other 05v851i9-462d-9841-aseo-8l546689e8kb 45g699u1-766n-9745-dptg-7q346938h3ul ANSI-Commercial 06yg2fmu-v607-8266-kx6b-j8cx6l8b308t 27gi0sfx-y196-7250-oy0y-h7er5k0c391s ANSI-Commercial dkc43l82-4qv0-6c02-1024-5a743e7n97km mvx11z02-8uw4-4v55-2237-7h561v9b99ng O UNAVAILABLE UNAVAILA BLE ANSI-Commercial v384r864-2129-5313-f422-sf91d2cng4p0 y515l774-9386-9900-j084-ii37h4tdn4r1 ANSI-Commercial bjmj29ge-099a-4rnc-at88-260073u9804h bsny59li-113k-2weq-wq83-347512d1746c ANSI-Other i3ah7130-7d70-947g-4q02-3t49u6e4j0xn m3yq6707-1k16-508i-6f62-3t50t5s2n1zd ANSI-Commercial 0883af04-x7b9-6b80-22aj-q8z0yg06s251 0202vn77-b0g4-7h14-88zy-i4f7gt07y466 ANSI-Commercial c55092e6-o4f1-6ryg-287n-768hxi475893 v28375i2-x8q0-9yaq-880l-675mvk334135 ANSI-Commercial ix3116bb-04vl-4820-k3d0-753m218j4w25 rs8710cj-00qw-2506-q8a0-958i680b8n15 ANSI-Commercial 1x19vrbw-714d-7qvm-9mo1-4ug532ub8ozi 8v31itbx-605n-4mdy-8hs3-8jz471xg0vhi ANSI-Other 1h4207w7-0617-1ip9-5ep5-vy916979g369 9v4265r9-6146-3sk8-5pj6-el172106z519 ANSI-Commercial 50x961j6-eh72-95sh-9003-xp800cr2n75l 74x965i9-xh73-31kz-4560-ub951td9r16k ANSI-Commercial nq2z4053-7twz-83s6-n772-9ig01e52gw9h lj4d2358-9ycg-87j7-r274-7dk26f40va1h ANSI-Commercial 9c7r3912-6754-1hb1-crm9-kq6hxv2t0t5t 2p8e7385-1445-1ej1-csd9-eo2xza9t4a0x ANSI-Other l2933150-x303-6067-u7s4-qjct6j1pzv2w k2197756-g134-1598-z9d7-cmdm1o4taa3x ANSI-Commercial 81gy3n0x-8173-83m5-01h4-1l26344us995 75oa8u7t-3379-56s2-35e6-8u89071zm097 ANSI-Other eh446666-9p4a-1581-ses5-6br3lv94d400 oh053723-0j8k-9478-mix2-6uj5ou56w870 ANSI-Commercial 542980l4-2o95-05n3-jlvd-w784lj7l6js1 935744q9-7b02-98p3-pdjw-q027ic7c0ta5 ANSI-Commercial 0m8qbg7p-pxz3-37m2-xd76-7957l902d999 8v7gsw5q-jln2-03n4-bw36-9034h098s316 ANSI-Commercial t023z623-01zt-424h-8617-8553p281fs12 i268h974-28we-313r-5869-9174m877qy34 ANSI-Commercial o4n80vp2-jxpx-3ka9-z020-92s1808103e0 b0n72wk7-zjek-2wp1-l853-21n1452960z8 ANSI-Commercial 6675674p-o3dz-6p64-9670-700636dob8y3 5325856j-j0ev-1a03-1876-398004gfo6n0 ANSI-Other 592368xf-y505-3p27-4j92-q011y17au9e2 787753zq-b665-6k37-3g16-b172r57wo6d1 ANSI-Commercial 2q348933-76q1-99s2-bi16-2hp03n683bc0 6m422307-85n6-51s9-dm83-7dn47h065ro9 ANSI-Other 1uk2449n-48n9-9x12-9x7o-633h25od1s48 7ov8348y-18y0-4i57-5f1r-048g95ys7d60 ANSI-Commercial 411x8fm7-6006-754q-ag9h-j13x1058tykq 778u4re2-3089-771n-qm5e-s35v3531ccpc ANSI-Commercial a2n0g5q8-4018-2484-2z51-952544f19560 c2l2y2a5-0765-1725-2w85-276129z13671 ANSI-Commercial df770396-p659-0yyj-e297-37t67414t1o5 qp356019-a800-1kmb-h465-77t59890t2z0 ANSI-Commercial 5m2954q7-ecq4-624q-7894-27pmha53v0s2 9e4834n4-iap4-091d-7085-36lcis04b2e9 ANSI-Commercial 7664w3u2-d2k8-0xf6-lm30-024x7ls79730 8617n1y6-p1m9-5vy0-ip55-289u0el46767 ANSI-Other 46d2938c-0f24-0qq2-z4yx-ru4hw0r410y5 60w0002p-6k73-8fx2-i5dg-wi2bt7y015r5 [employer] W/C [id number] SP [id number] [employer] W/C [id number] SP [id number] COMMERCIAL HEA [id number] S [id number] WORKERS COMPENSATION NATALIA [id number] S [id number] [employer] Commercial [id number] Family Dependent [id number] [employer] W/C [id number] SP [id number] [employer] O [id number] S [id number] [employer] W/C [id number] SP [id number] [employer] [id number] SP [id number] [employer] [id number] SP [id number] [employer] P[employer] Commercial [id number] Family Dependent [id number] [employer] O [id number] O [id number] [employer] PPO O [id number] S [id number] SELF PAY UNAVAILABLE UNAVAILA BLE [employer] W/C UNAVAILABLE SP UNAVAILA BLE [place] S[employer] [id number] SP [id number] OTHER WORKERS COMPENSATION [id number] SP [id number] [place] [employer] P [id number] S [id number] [place] [employer] P [id number] S [id number] [place] S[employer] [id number] SP [id number] SELF PAY 2 UNAVAILABLE 1 UNAVAILA BLE [facility] [id number] SP [id number] [place] [id number] 1 [id number] MEDICARE [id number] SP [id number] [employer] PPO 2 [id number] 2 [id number] JARR[employer] CLAIM ADMIN WORK COMP WCB# [id number] SP WCB# [id number] [facility] [id number] HU2 [id number] JARR[employer] CLAIM ADMIN WORK COMP WCB# [id number] SP WCB# [id number] JARR[employer] CLAIM ADMIN WORK COMP [id number] SP [id number] [facility] [id number] HU2 [id number] JARR[employer] CLAIM ADMIN WORK COMP [id number] SP [id number] [employer]NAG[employer] [id number] SP [id number] JARR[employer] CLAIM ADMIN WORK COMP [id number] SP [id number] UMR O [id number] S [id number] JARR[employer] CLAIM ADMIN WORK COMP [id number] SP [id number] [employer] [id number] SP [id number] [facility] [id number] SP [id number] [facility] [id number] WI2 [id number] [facility] S[facility] O [id number] S [id number] [facility] SELF INSURED [id number] SP [id number] [facility] SELF INSURED [id number] SP [id number] ANSI-Commercial [id number] ANSI-Commercial [id number]-shs0-12d8-u97x-[id number] 7711hg24-kfe0-49g4-v22q-0427d5i19633 ANSI-Not a Secondary Insurance [id number]-b25m-[id number] ANSI-Commercial o9cc2229-0g77-18q7-6w7s-y1gd97qas8j2 z5pi4718-1g04-07x0-2p6s-z3gu46pys3v1 [facility] [id number] ANSI-Commercial [id number]-884x-d59q-[id number] 4x7c83k5-0p5u-658m-u93t-6t69f600ex98 ANSI-Commercial 6t07nd26-0u63-30x1-0t3h-17u0nti75879 7a25zv81-3p72-98a8-1o2w-37m5ohu24561 ANSI-Not a Secondary Insurance [id number] Problems, Conditions, and Diagnoses Code Display Name Description Problem Type Effective Dates Data Source(s) N18.30 Chronic kidney disease, stage 3 unspecif ied Chronic kidney disease, stage 3 unspecif Diagnosis 08/14/2021 12:52:49 PM [facility] G47.33 Obstructive sleep apnea (adult) (pediatr ic) Obstructive sleep apnea (adult) (pediatr Diagnosis 08/14/2021 12:52:49 PM [facility] Z95.810 Presence of automatic (implantable) card iac defibrillator Presence of automatic (implantable) card Diagnosis 08/14/2021 12:52:49 PM [facility] E78.2 Mixed hyperlipidemia Mixed hyperlipidemia Diagnosis 08/14/2021 12:52:49 PM [facility] I10 Essential (primary) hypertension Essential (primary) h ypertension Diagnosis 08/14/2021 12:52:49 PM [facility] I50.20 Unspecified systolic (congestive) heart failure Unspecified systolic (congestive) heart Diagnosis 08/14/2021 12:52:49 PM [facility] I25.10 Atherosclerotic heart diseas e of [place] coronary artery without angina pectoris Atherosclerotic heart disease of [place] Diagnosis 08/14/2021 12:52:49 PM [facility] F17.210 Nicotine dependence, cigarettes, uncompl icated Nicotine dependence, cigarettes, uncompl Diagnosis 08/14/2021 12:52:49 PM EST [facility] I25.5 Ischemic cardiomyopathy Ischemic cardiomyopathy Diagno sis 08/14/2021 12:52:49 PM [facility] Z23 [id number] Encounter for immunization Problem 12:00:00 AM EDT [facility] ([facility]) M40.37 Acquired kyphosis Acquired kyphosis Problem 05/16/2021 12:00:00 AM EDT [facility] ([facility]) G89.4 Chronic pain syndrome Chronic pain syndrome Problem 05/16/2021 12:00:00 AM EDT [facility] ([facility]) N18.30 Stage 3 chronic kidney disease Stage 3 chronic kidney disease [id number] 02/09/2021 12:00:00 AM EDT [facility] L89.152 Pressure ulcer of sacral region, stage 2 Pressure ulcer of coccygeal region, stage 2 Problem 02/05/2021 12:00:00 AM EDT eCW1 ([facility]) J44.9 [id number] 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 Problem 11/24/2020 12:00:00 AM EST eCW1 ([facility]) D75.89 [id number] Macrocytosis Problem 11/24/2020 12:00:00 AM EST eCW1 ([facility]) Surgeries/Procedures Procedure Description Date Indications Data Source(s) Medication: Silver Nitrate Stick topically 08/08/2021 12:00:00 AM EST eCW1 ([facility]) FINE NEEDLE ASPIRATION W/O IMAGING GUIDANCE 08/08/2021 12:00:00 AM EST eCW1 ([facility]) FINE NEEDLE ASPIRATION W/O IMAGING GUIDANCE 07/30/2021 12:00:00 AM EST eCW1 ([facility]) FINE NEEDLE ASPIRATION W/O IMAGING GUIDANCE 07/06/2021 12:00:00 AM EDT eCW1 ([facility]) Medication: Silver Nitrate Stick topically 07/06/2021 12:00:00 AM EDT eCW1 ([facility]) Imm: Flublok Quadrivalent 18 years & older 0.5mL IM Influenz a 07/04/2021 12:00:00 AM EDT eCW1 ([facility]) DEBRIDEMENT NAIL ANY METHOD 06/11/2021 12:00:00 AM EDT [facility] ([facility] FINE NEEDLE ASPIRATION W/O IMAGING GUIDANCE 06/04/2021 12:00:00 AM EDT eCW1 ([facility]) OFFICE OUTPATIENT VISIT 25 MINUTES 05/16/2021 12:00:00 AM EDT [facility] ([facility]) FINE NEEDLE ASPIRATION W/O IMAGING GUIDANCE 05/04/2021 12:00:00 AM EDT eCW1 ([facility]) DEBRIDEMENT NAIL ANY METHOD 04/02/2021 12:00:00 AM EDT [facility] ([facility] FINE NEEDLE ASPIRATION W/O IMAGING GUIDANCE 04/02/2021 12:00:00 AM EDT eCW1 ([facility]) Medication: Silver Nitrate Stick topically 03/05/2021 12:00:00 AM EDT eCW1 ([facility]) FINE NEEDLE ASPIRATION W/O IMAGING GUIDANCE 03/05/2021 12:00:00 AM EDT eCW1 ([facility]) ECG ROUTINE ECG W/LEAST 12 LDS W/I&R <td>POCT AMB EKG</td><td>Routine</td><td>02/09/2021 12:34 PM EDT</td><td> Coronary artery disease involving [place] coronary artery of [place] heart without angina pectoris</td><td> </td> 02/09/2021 12:34:00 PM EDT Coronary artery disease involving [place] coronary artery of [place] heart without angina pectoris [facility] Coronary artery disease involving [place] coronary artery of [place] heart without angina pectoris FINE NEEDLE ASPIRATION W/O IMAGING GUIDANCE 02/05/2021 12:00:00 AM EDT eCW1 ([facility]) Medication: Silver Nitrate Stick topically 02/05/2021 12:00:00 AM EDT eCW1 ([facility]) DEBRIDEMENT NAIL ANY METHOD 6/> 01/22/2021 12:00:00 AM EDT [facility] ([facility] Medication: Silver Nitrate Stick topically 01/08/2021 12:00:00 AM EDT eCW1 ([facility]) FINE NEEDLE ASPIRATION W/O IMAGING GUIDANCE 12/11/2020 12:00:00 AM EDT eCW1 ([facility]) HEMOGLOBIN GLYCOSYLATED A1C <td>HEMOGLOBIN A1C</td><td>Routine</td><td>11/27/2020</td><td></td><td> </td> 11/27/2020 12:00:00 AM EDT [facility] FERRITIN <td>FERRITIN</td><td>Routine </td><td>11/27/2020</td><td></td><td> </td> 11/27/2020 12:00:00 AM EDT [facility] HEPATIC FUNCTION PANEL <td>HEPATIC FUNCTION PANEL</td><td>Routine</td><td>11/27/2020</td><td></td><td> </td> 11/27/2020 12:00:00 AM EDT [facility] BASIC METABOLIC PANEL CALCIUM TOTAL <td>BASIC METABOLI C PANEL</td><td>Routine</td><td>11/27/2020</td><td></td><td> </td> 11/27/2020 12:00:00 AM EDT [facility] Medication: Aquaphor healing ointment topical 11/25/19 12:00:00 AM EST eCW1 ([facility]) DEBRIDEMENT NAIL ANY METHOD /11/13/2020 12:00:00 AM EST [facility] ([facility] FINE NEEDLE ASPIRATION W/O IMAGING GUIDANCE 10/27/2020 12:00:00 AM EST eCW1 ([facility]) Medication: Silver Nitrate Stick topically 10/27/2020 12:00:00 AM EST eCW1 ([facility]) FINE NEEDLE ASPIRATION W/O IMAGING GUIDANCE 09/29/2020 12:00:00 AM EST eCW1 ([facility]) PARING/CUTTING BENIGN HYPERKERATOTIC LESION 1 09/04/20 12:00:00 AM EST [facility] ([facility] DEBRIDEMENT NAIL ANY METHOD 09/04/2020 12:00:00 AM EST [facility] ([facility] FINE NEEDLE ASPIRATION W/O IMAGING GUIDANCE 09/01/2020 12:00:00 AM EST eCW1 ([facility]) FINE NEEDLE ASPIRATION W/O IMAGING GUIDANCE 08/04/2020 12:00:00 AM EST eCW1 ([facility]) ECG ROUTINE ECG W/LEAST 12 LDS W/I&R <td>POCT AMB EKG</td><td>Routine</td><td>08/02/2020 4:04 PM EST</td><td> Coronary artery disease involving [place] coronary artery of [place] heart without angina pectoris</td><td> </td> 08/02/2020 09:04:00 PM EST Coronary artery disease involving [place] coronary artery of [place] heart without angina pectoris [facility] Coronary artery disease involving [place] coronary artery of [place] heart without angina pectoris FINE NEEDLE ASPIRATION W/O IMAGING GUIDANCE 07/14/2020 12:00:00 AM EDT eCW1 ([facility]) BLOOD COUNT COMPLETE AUTO&AUTO DIFRNTL WBC COUNT <td>C BC AND DIFFERENTIAL</td><td>Routine</td><td>07/11/2020</td><td></td><td> </td> 07/11/2020 12:00:00 AM EDT [facility] HEPATIC FUNCTION PANEL <td>HEPATIC FUNCTION PANEL</td><td>Routine</td><td>07/11/2020</td><td></td><td> </td> 07/11/2020 12:00:00 AM EDT [facility] LIPID PANEL <td>LIPID PANEL</td><td>Rout ine</td><td>07/11/2020</td><td></td><td> </td> 07/11/2020 12:00:00 AM EDT [facility] BASIC METABOLIC PANEL CALCIUM TOTAL <td>BASIC METABOLI C PANEL</td><td>Routine</td><td>07/11/2020</td><td></td><td> </td> 07/11/2020 12:00:00 AM EDT [facility] Immunization: Flublok Quadrivalent (18 years & older) 0.5mL IM (Influenza) 07/11/2020 12:00:00 AM EDT [facility] (Counts include 234 beds at the [facility]) PARING/CUTTING BENIGN HYPERKERATOTIC LESION 1 06/27/20 12:00:00 AM EDT [facility] ([facility] DEBRIDEMENT NAIL ANY METHOD 06/27/2020 12:00:00 AM EDT [facility] ([facility] Results ID Date Data Source URINE CULTURE 07/04/2021 12:00:00 AM EDT [facility] ([facility]) Name Value Range Interpretation Code Description Data Dayana rce(s) Supporting Document(s) Laboratory studies (set) URINE CULTU RE [facility] ([facility]) ID Date Data Source UA URINALYSIS 07/04/2021 12:00:00 AM EDT eCW1 ([facility]) Name Value Range Interpretation Code Description Data [place]ana rce(s) Supporting Document(s) Laboratory studies (set) UA URINALYS IS eCW1 ([facility]) ID Date Data Source [id number] 04/10/2021 12:42:00 AM EDT [facility] Name Value Range Interpretation Code Description Data Dayana rce(s) Supporting Document(s) SARS coronavirus 2 RNA [Presence] in Res piratory specimen by JUAN with probe detection NEGATIVE [facility] This lab was ordered by [facility] a nd reported by [facility]. ID Date Data Source Reticulocyte Count Sysmex 11/27/2020 12:00:00 AM EDT eCW1 ([facility]) Name Value Range Interpretation Code Description Data Dayana rce(s) Supporting Document(s) 1.7 0.5-1.5 RETICULOCYTE % eCW1 ([facility]) ID Date Data Source [id number] 11/27/2020 12:00:00 AM EDT eCW1 ([facility]) Name Value Range Interpretation Code Description Data Dayana rce(s) Supporting Document(s) Hemoglobin A1c/Hemoglobin.total in Blood 8.2 HEMOGLOBIN A1c eCW1 ([facility]) ID Date Data Source CBC with Differential 11/27/2020 12:00:00 AM EDT eCW1 ([facility]) Name Value Range Interpretation Code Description Data Dayana rce(s) Supporting Document(s) 10.7 4.0-10.0 WHITE BLOOD COUNT eCW1 ([facility]) 99.4 80.0-96.0 MEAN CORPUSCULAR VOLUME e CW1 ([facility]) 50.4 42.0-52.0 HEMATOCRIT eCW1 ([facility]) 15.9 13.5-17.5 HEMOGLOBIN eCW1 ([facility]) 5.07 4.30-6.10 RED BLOOD COUNT eCW1 ([facility]) 212 150-450 PLATELET COUNT, AUTOMATED eCW1 ([facility]) 31.5 32.0-36.5 MEAN CORPUSCULAR HGB CONC eCW1 ([facility]) 13.1 11.5-14.5 RED CELL DISTRIBUTION WID TH eCW1 ([facility]) 31.4 27.0-33.0 MEAN CORPUSCULAR HEMOGLOB IN W1 ([facility]) 14.3 24.0-44.0 LYMPH % eCW1 ([facility]) 72.6 36.0-66.0 NEUTROPHILS % eCW1 ([facility]) 1.9 0.0-3.0 EOS % eCW1 ([facility]) 10.0 2.0-8.0 MONO % eCW1 ([facility]) 0.7 0.0-1.0 BASO % eCW1 ([facility]) 7.8 1.5-8.5 NEUTROPHILS # eCW1 ([facility]) 1.5 1.5-5.0 LYMPH # eCW1 ([facility]) 1.1 0.0-0.8 MONO # eCW1 ([facility]) 0.2 0.0-0.5 EOS # eCW1 ([facility]) 0.1 0.0-0.2 BASO # eCW1 ([facility]) ID Date Data Source [id number] 08/18/2020 08:53:39 AM EST [facility] Name Value Range Interpretation Code Description Data Dayana rce(s) Supporting Document(s) &PDF [facility] BDWFXz5hLdRHKsRv41/OKJgzHANss7KlICwzXEt9QChyKHAmK0OrkOchLGwJXFSBZEhAKENTZDYhHKBj Fc [file] AgICAgICAgICAgICAgICAgICAgICAgICAgICAgICAgICAgICAgICAgICAgICAgICAgICAgICAgICAgIC AgICANCiAgICAgICAgICAgICAgICAgICAgICAgICAg ICAgICAgICAgICAgICAgICAgICAgICAgICAgICAgICAgICAgICAgICAgICAgICAgICAgICAgICAgICAg ICAgICAgICAgICAgICANCiAgICAgICAgICAgICAgICAgICAgICAgICAgICAgICAgICAgICAgICAgICAg ICAgICAgICAgICAgICAgICAgICAgICAgICAgICAgIC AgICAgICAgICAgICAgICAgICAgICAgICANCiAgICAgICAgICAgICAgICAgICAgICAgICAgICAgICAgIC AgICAgICAgICAgICAgICAgICAgICAgICAgICAgICAgICAgICAgICAgICAgICAgICAgICAgICAgICAgIC AgICAgICANCiAgICAgICAgICAgICAgICAgICAgICAg ICAgICAgICAgICAgICAgICAgICAgICAgICAgICAgICAgICAgICAgICAgICAgICAgICAgICAgICAgICAg ICAgICAgICAgICAgICAgICANCiAgICAgICAgICAgICAgICAgICAgICAgICAgICAgICAgICAgICAgICAg ICAgICAgICAgICAgICAgICAgICAgICAgICAgICAgIC AgICAgICAgICAgICAgICAgICAgICAgICAgICANCiAgICAgICAgICAgICAgICAgICAgICAgICAgICAgIC AgICAgICAgICAgICAgICAgICAgICAgICAgICAgICAgICAgICAgICAgICAgICAgICAgICAgICAgICAgIC AgICAgICAgICANCiAgICAgICAgICAgICAgICAgICAg ICAgICAgICAgICAgICAgICAgICAgICAgICAgICAgICAgICAgICAgICAgICAgICAgICAgICAgICAgICAg ICAgICAgICAgICAgICAgICAgICANCiAgICAgICAgICAgICAgICAgICAgICAgICAgICAgICAgICAgICAg ICAgICAgICAgICAgICAgICAgICAgICAgICAgICAgIC AgICAgICAgICAgICAgICAgICAgICAgICAgICAgICANCiAgICAgICAgICAgICAgICAgICAgICAgICAgIC AgICAgICAgICAgICAgICAgICAgICAgICAgICAgICAgICAgICAgICAgICAgICAgICAgICAgICAgICAgIC AgICAgICAgICAgICANCjw/oKXhE8vqfGKkfkJ1U8pk Yt3FPt0JBE7tc1IxAGLcQDrvnsMrIogUBtSoHQTwJukZFgh7YIdhXM8IoBRkZ4BbH4UeZVehXI4BUOZm HDZulZFyGBDlHHYwSwX7WDIqJHseSL0MvBGwAHunVDWhUBNkIzIpSACkPZ5BYOLcO212upStXz4OCy2E CgTrCE6htk8VZMyrLMJjCnlKElr9OLhcVY7DxFYpO0 SphXLgp4iKJgXjX5XJLSO6YIPtCr6GJMTuIwXhNCAvMSieCV3vMDGzOINPzDtmroR4YM2OQK1ypeGwZB 2RGjGiXz5eTg8AAaEnQ4JpR4GkGWOpCGFPCJckKC9FCLGbHTD9HWBtMcYrQQMGVsWyA83tDQ1QA5Sbc6 2uOqG1BTAfZsRcZWnpHC13nAttrcBupRDvbZbjDI4S Cj4+HCvcwfSeVwdWOszpHFPECvNbZSdCVkBsIUBeTYQiBKCxEbL3RcWfEm7CWVCeKJVdEXJdPiQwHUUi QIVnEHnfIFTdNUE9YCWmXBGjNQYbCT3ULrQaGDIyVZqhTFUhRDKnGDGxkj8RZHFuLVPaEFY4ROCrPXAn BWVcWJnoRPKhPFUeFFjlLRWiGHCnST4OChZqWIAbGT NdSJWuPJBlZGJltd9PGNMhEFKhKac8CsWuXUYtDDQwBLnpXSLzMGE3IXO2GZQjZQGfLO0TWvCtBWTiBX DjHXFsZOAaBMWzpw2GYZPqFGPsVWHiAAPmJQNuPOKdLQchMIEeGYQ0GLedUBHfGRHhCT5LYdAiCXQjIB T6WFDbFHTdPLDziy9YRLOkFOMrNpV7TsGjAVUjMANd RIskAKErRRW5EITuKWIvUQWfDF2YCzOtKRZhLBY3CeLlWAPbQUOntt8DNHOuSUHtGVQ4AIKiDFPvJHXa TMxrBGFiROT9FQP4EAFvGWUbLX0NTwWhDHLqSWm9BQDgIUXuJUFcmr5VcRIlvRjsls8XSBlYZf2KsCqn TEY6UIavNn9fqJHvBPLjTJJWLb0LrcCwDWGwVJJPDO qsYUMvFPJ6HrB0Z8QgVvNvPTQaSgk2DJPeIMciNPlpYKOwTKaeStF5Six1HRffOJOaAHItSqQuLXT5JO RzMUSqH0V7VgFgB1U+GS5dUCa+Dj6Sx1DtheV0etTtYRwhLqD3Fl0DGXULG6MEPr== ID Date Data Source [id number] SEDIMENTATION RATE 07/11/2020 05:41:11 AM EDT eC W1 ([facility]) Name Value Range Interpretation Code Description Data Dayana rce(s) Supporting Document(s) 34 eCW1 ([facility]) ID Date Data Source C REACTIVE PROTEIN QUANTITATIV ([facility]) 07/11/2020 05:41 :08 AM EDT eCW1 ([facility]) Name Value Range Interpretation Code Description Data Dayana rce(s) Supporting Document(s) 2.35 C REACTIVE PROTEIN QUANTITATIV eCW1 ([facility]) ID Date Data Source VITAMIN B12 LEVEL 07/11/2020 05:40:56 AM EDT eCW1 ([facility]) Name Value Range Interpretation Code Description Data Dayana rce(s) Supporting Document(s) 829 eCW1 ([facility]) ID Date Data Source [id number] 07/11/2020 05:40:53 AM EDT eCW1 ([facility]) Name Value Range Interpretation Code Description Data Dayana rce(s) Supporting Document(s) Microalbumin/Creatinine [Ratio] in Urine 47.6 eCW1 ([facility]) Albumin/Creatinine [Mass Ratio] in Urine 57.2 eCW1 ([facility]) Microalbumin/Creatinine [Mass Ratio] in Urine 120.0 eCW1 ([facility]) ID Date Data Source NT-PRO BNP 07/11/2020 05:40:48 AM EDT eCW1 ([facility]) Name Value Range Interpretation Code Description Data Dayana rce(s) Supporting Document(s) 139 NT-PRO BNP eCW1 ([facility]) ID Date Data Source LIPID PANEL (CARDIAC RISK) 07/11/2020 05:40:45 AM EDT eCW1 ( [facility]) Name Value Range Interpretation Code Description Data Dayana rce(s) Supporting Document(s) Triglyceride [Mass/volume] in Serum or Plasma by calculation 194 TRIGLYCERIDES LEVEL eCW1 ([facility]) Cholesterol in LDL [Mass/volume] in Serum or Plasma by calculation 89 LDL CHOLESTEROL eCW1 ([facility]) 128 NON-HDL-C eCW1 ([facility]) Cholesterol [Moles/volume] in Serum or Plasma 168 CHOLESTEROL LEVEL eCW1 ([facility]) Cholesterol in HDL [Moles/volume] in Serum or Plasma 40 HDL CHOLESTEROL eCW1 ([facility]) 4.200 CHOLESTEROL RISK RATIO eCW1 ([facility]) ID Date Data Source FREE T4 & TSH PANEL 07/11/2020 05:40:42 AM EDT eCW1 ([facility]) Name Value Range Interpretation Code Description Data Dayana rce(s) Supporting Document(s) 0.88 FREE T4 eCW1 ([facility]) 1.560 THYROID STIMULATING HORMONE eC W1 ([facility]) ID Date Data Source Comprehensive Metabolic Profile (CMP) 07/11/2020 05:40:20 AM EDT eCW1 ([facility]) Name Value Range Interpretation Code Description Data Dayana rce(s) Supporting Document(s) 20 BLOOD UREA NITROGEN eCW1 ([facility]) 56.2 GLOMERULAR FILTRATION RATE eCW 1 ([facility]) 176 GLUCOSE, FASTING eCW1 ([facility]) 1.36 CREATININE FOR GFR eCW1 ([facility]) 104 CHLORIDE LEVEL eCW1 ([facility]) 138 SODIUM LEVEL eCW1 ([facility]) 4.7 POTASSIUM SERUM eCW1 ([facility]) 29 CARBON DIOXIDE LEVEL eCW1 ([facility]) 111 ALKALINE PHOSPHATASE eCW1 ([facility]) 16 AST/SGOT eCW1 ([facility]) 20 ALT/SGPT eCW1 ([facility]) 9.2 CALCIUM LEVEL eCW1 ([facility]) 0.3 BILIRUBIN,TOTAL eCW1 ([facility]) 3.4 ALBUMIN eCW1 ([facility]) 0.9 ALBUMIN/GLOBULIN RATIO eCW1 ([facility]) 7.4 TOTAL PROTEIN eCW1 ([facility]) ID Date Data Source VITAMIN D 25-HYDROXY 07/11/2020 05:40:14 AM EDT eCW1 ([facility]) Name Value Range Interpretation Code Description Data Dayana rce(s) Supporting Document(s) 30.5 TOTAL 25(OH) VITAMIN D eCW1 ([facility]) ID Date Data Source PTH INTACT 07/11/2020 05:40:12 AM EDT eCW1 ([facility]) Name Value Range Interpretation Code Description Data Dayana rce(s) Supporting Document(s) 30.9 PTH INTACT eCW1 ([facility]) Procedure Social History Code Duration Value Status Description Data Source(s ) Smoking 08/08/2021 12:00:00 AM EST Current Smoker completed Curre nt Smoker eCW1 ([facility]) Smoking 07/30/2021 12:00:00 AM EST Current Smoker completed Curre nt Smoker eCW1 ([facility]) Smoking 07/30/2021 12:00:00 AM EST Current Smoker completed Curre nt Smoker eCW1 ([facility]) Smoking 07/30/2021 12:00:00 AM EST Current Smoker completed Curre nt Smoker eCW1 ([facility]) Smoking 07/06/2021 12:00:00 AM EDT Current Smoker completed Curre nt Smoker eCW1 ([facility]) Smoking 07/06/2021 12:00:00 AM EDT Current Smoker completed Curre nt Smoker eCW1 ([facility]) Smoking 07/06/2021 12:00:00 AM EDT Current Smoker completed Curre nt Smoker eCW1 ([facility]) Smoking 07/06/2021 12:00:00 AM EDT Current Smoker completed Curre nt Smoker eCW1 ([facility]) Smoking 07/06/2021 12:00:00 AM EDT Current Smoker completed Curre nt Smoker eCW1 ([facility]) Smoking 07/04/2021 12:00:00 AM EDT Current Smoker completed Curre nt Smoker eCW1 ([facility]) Smoking 07/04/2021 12:00:00 AM EDT Current Smoker completed Curre nt Smoker eCW1 ([facility]) Smoking 07/01/2021 12:00:00 AM EDT Current Smoker completed Curre nt Smoker eCW1 ([facility]) Smoking 07/01/2021 12:00:00 AM EDT Current Smoker completed Curre nt Smoker eCW1 ([facility]) Smoking 06/22/2021 12:00:00 AM EDT Current Smoker completed Curre nt Smoker eCW1 ([facility]) Smoking 06/04/2021 12:00:00 AM EDT Current Smoker completed Curre nt Smoker eCW1 ([facility]) Smoking 06/04/2021 12:00:00 AM EDT Current Smoker completed Curre nt Smoker eCW1 ([facility]) Smoking 06/04/2021 12:00:00 AM EDT Current Smoker completed Curre nt Smoker eCW1 ([facility]) Smoking 06/04/2021 12:00:00 AM EDT Current Smoker completed Curre nt Smoker eCW1 ([facility]) 05/16/2021 12:00:00 AM EDT Patient is a current smoker, smokes every day completed Patient is a current smoker, smokes every day MEDENT ( [facility]) Smoking 05/16/2021 12:00:00 AM EDT Heavy tobacco smoker (more than 10 cigarettes/day) completed Heavy tobacco smoker (more than 10 cigar ettes/day) MEDGERALD ([facility]) Smoking 05/04/2021 12:00:00 AM EDT Current Smoker completed Curre nt Smoker eCW1 ([facility]) Smoking 05/04/2021 12:00:00 AM EDT Current Smoker completed Curre nt Smoker eCW1 ([facility]) Smoking 05/04/2021 12:00:00 AM EDT Current Smoker completed Curre nt Smoker eCW1 ([facility]) Smoking 05/04/2021 12:00:00 AM EDT Current Smoker completed Curre nt Smoker eCW1 ([facility]) Smoking 04/23/2021 12:00:00 AM EDT Current Smoker completed Curre nt Smoker eCW1 ([facility]) Smoking 04/02/2021 12:00:00 AM EDT Current Smoker completed Curre nt Smoker eCW1 ([facility]) Smoking 04/02/2021 12:00:00 AM EDT Current Smoker completed Curre nt Smoker eCW1 ([facility]) Smoking 04/02/2021 12:00:00 AM EDT Current Smoker completed Curre nt Smoker eCW1 ([facility]) Smoking 03/13/2021 12:00:00 AM EDT Current Smoker completed Curre nt Smoker eCW1 ([facility]) Smoking 03/13/2021 12:00:00 AM EDT Current Smoker completed Curre nt Smoker eCW1 ([facility]) Smoking 03/05/2021 12:00:00 AM EDT Current Smoker completed Curre nt Smoker eCW1 ([facility]) Alcohol intake 02/09/2021 12:00:00 AM EDT Ex-drinker (finding) comp leted Ex- drinker (finding) [facility] Smoking 02/05/2021 12:00:00 AM EDT Current Smoker completed Curre nt Smoker eCW1 ([facility]) Smoking 02/05/2021 12:00:00 AM EDT Current Smoker completed Curre nt Smoker eCW1 ([facility]) Smoking 01/08/2021 12:00:00 AM EDT Current Smoker completed Curre nt Smoker eCW1 ([facility]) Smoking 01/08/2021 12:00:00 AM EDT Current Smoker completed Curre nt Smoker eCW1 ([facility]) Smoking 01/08/2021 12:00:00 AM EDT Current Smoker completed Curre nt Smoker eCW1 ([facility]) Smoking 12/11/2020 12:00:00 AM EDT Current Smoker completed Curre nt Smoker eCW1 ([facility]) Smoking 12/11/2020 12:00:00 AM EDT Current Smoker completed Curre nt Smoker eCW1 ([facility]) Smoking 12/11/2020 12:00:00 AM EDT Current Smoker completed Curre nt Smoker eCW1 ([facility]) Smoking 12/11/2020 12:00:00 AM EDT Current Smoker completed Curre nt Smoker eCW1 ([facility]) Smoking 11/24/2020 12:00:00 AM EST Current Smoker completed Curre nt Smoker eCW1 ([facility]) Smoking 11/24/2020 12:00:00 AM EST Current Smoker completed Curre nt Smoker eCW1 ([facility]) Smoking 11/24/2020 12:00:00 AM EST Current Smoker completed Curre nt Smoker eCW1 ([facility]) Smoking 11/24/2020 12:00:00 AM EST Current Smoker completed Curre nt Smoker eCW1 ([facility]) Smoking 10/27/2020 12:00:00 AM EST Current Smoker completed Curre nt Smoker eCW1 ([facility]) Smoking 10/27/2020 12:00:00 AM EST Current Smoker completed Curre nt Smoker eCW1 ([facility]) Smoking 10/27/2020 12:00:00 AM EST Current Smoker completed Curre nt Smoker eCW1 ([facility]) Smoking 10/27/2020 12:00:00 AM EST Current Smoker completed Curre nt Smoker eCW1 ([facility]) Smoking 10/27/2020 12:00:00 AM EST Current Smoker completed Curre nt Smoker eCW1 ([facility]) Smoking 09/29/2020 12:00:00 AM EST Current Smoker completed Curre nt Smoker eCW1 ([facility]) Smoking 09/29/2020 12:00:00 AM EST Current Smoker completed Curre nt Smoker eCW1 ([facility]) Smoking 09/13/2020 12:00:00 AM EST Current Smoker completed Curre nt Smoker eCW1 ([facility]) Smoking 09/13/2020 12:00:00 AM EST Current Smoker completed Curre nt Smoker eCW1 ([facility]) Smoking 08/04/2020 12:00:00 AM EST Current Smoker completed Curre nt Smoker eCW1 ([facility]) Smoking 08/04/2020 12:00:00 AM EST Current Smoker completed Curre nt Smoker eCW1 ([facility]) Smoking 08/04/2020 12:00:00 AM EST Current Smoker completed Curre nt Smoker eCW1 ([facility]) Smoking 07/14/2020 12:00:00 AM EDT Current Smoker completed Curre nt Smoker eCW1 ([facility]) Smoking 07/14/2020 12:00:00 AM EDT Current Smoker completed Curre nt Smoker eCW1 ([facility]) Smoking 07/14/2020 12:00:00 AM EDT Current Smoker completed Curre nt Smoker eCW1 ([facility]) Smoking 07/14/2020 12:00:00 AM EDT Current Smoker completed Curre nt Smoker eCW1 ([facility]) Smoking 07/14/2020 12:00:00 AM EDT Current Smoker completed Curre nt Smoker eCW1 ([facility]) Smoking 07/14/2020 12:00:00 AM EDT Current Smoker completed Curre nt Smoker eCW1 ([facility]) Smoking 07/11/2020 12:00:00 AM EDT Current Smoker completed Curre nt Smoker eCW1 ([facility]) Smoking 06/22/2020 12:00:00 AM EDT Current Smoker completed Curre nt Smoker eCW1 ([facility]) Smoking 06/22/2020 12:00:00 AM EDT Current Smoker completed Curre nt Smoker eCW1 ([facility]) Smoking 06/22/2020 12:00:00 AM EDT Current Smoker completed Curre nt Smoker eCW1 ([facility]) Smoking 06/22/2020 12:00:00 AM EDT Current Smoker completed Curre nt Smoker eCW1 ([facility]) Smoking 06/22/2020 12:00:00 AM EDT Current Smoker completed Curre nt Smoker eCW1 ([facility]) Vital Signs ID Date Data Source UNK Name Value Range Interpretation Code Description Data Source(s) Body weight 188 [lb_av] 188 [lb_av] eCW1 ([facility]) Body weight 85.28 kg 85.28 kg eCW1 ([facility]) Body height 69 [in_i] 69 [in_i] eCW1 ([facility]) Body mass index (BMI) [Ratio] 27.76 kg/m2 27.76 kg/m2 eCW1 ([facility]) Heart rate 67 /min 67 /min eCW1 ([facility]) Respiratory rate 19 /min 19 /min eCW1 ([facility]) Body temperature 98.3 [degF] 98.3 [degF] eCW1 ( [facility]) Systolic blood pressure 116 mm[Hg] 116 mm[Hg] e CW1 ([facility]) Diastolic blood pressure 66 mm[Hg] 66 mm[Hg] eCW1 ([facility]) Body weight 188 [lb_av] 188 [lb_av] eCW1 ([facility]) Body height 69 [in_i] 69 [in_i] eCW1 ([facility]) Body mass index (BMI) [Ratio] 27.76 kg/m2 27.76 kg/m2 W1 ([facility]) Heart rate 79 /min 79 /min eCW1 ([facility]) Respiratory rate 20 /min 20 /min eCW1 ([facility]) Body temperature 97.3 [degF] 97.3 [degF] eCW1 ( [facility]) Systolic blood pressure 121 mm[Hg] 121 mm[Hg] e CW1 ([facility]) Diastolic blood pressure 66 mm[Hg] 66 mm[Hg] eCW1 ([facility]) Body weight 188 [lb_av] 188 [lb_av] eCW1 ([facility]) Body height 69 [in_i] 69 [in_i] eCW1 ([facility]) Body mass index (BMI) [Ratio] 27.76 kg/m2 27.76 kg/m2 eCW1 ([facility]) Heart rate 53 /min 53 /min eCW1 ([facility]) Respiratory rate 17 /min 17 /min eCW1 ([facility]) Body temperature 95.2 [degF] 95.2 [degF] eCW1 ( [facility]) Systolic blood pressure 132 mm[Hg] 132 mm[Hg] e CW1 ([facility]) Diastolic blood pressure 66 mm[Hg] 66 mm[Hg] eCW1 ([facility]) Systolic blood pressure 118 mm[Hg] 118 mm[Hg] e CW1 ([facility]) Body weight 188 [lb_av] 188 [lb_av] eCW1 ([facility]) Body weight 85.28 kg 85.28 kg eCW1 ([facility]) Body height 69 [in_i] 69 [in_i] eCW1 ([facility]) Diastolic blood pressure 78 mm[Hg] 78 mm[Hg] eCW1 ([facility]) Body mass index (BMI) [Ratio] 27.76 kg/m2 27.76 kg/m2 eCW1 ([facility]) Heart rate 76 /min 76 /min eCW1 ([facility]) Respiratory rate 18 /min 18 /min eCW1 ([facility]) Body temperature 96.4 [degF] 96.4 [degF] eCW1 ( [facility]) Body weight 186.0 [lb_av] 186.0 [lb_av] eCW1 ([facility]) Body weight 84.37 kg 84.37 kg eCW1 ([facility]) Body height 69 [in_i] 69 [in_i] eCW1 ([facility]) Body mass index (BMI) [Ratio] 27.46 kg/m2 27.46 kg/m2 eCW1 ([facility]) Heart rate 62 /min 62 /min eCW1 ([facility]) Respiratory rate 18 /min 18 /min eCW1 ([facility]) Body temperature 98.0 [degF] 98.0 [degF] eCW1 ( [facility]) Systolic blood pressure 130 mm[Hg] 130 mm[Hg] e CW1 ([facility]) Diastolic blood pressure 63 mm[Hg] 63 mm[Hg] eCW1 ([facility]) Body height 69 [in_i] 69 [in_i] eCW1 ([facility]) Body mass index (BMI) [Ratio] 27.32 kg/m2 27.32 kg/m2 eCW1 ([facility]) Heart rate 60 /min 60 /min eCW1 ([facility]) Respiratory rate 16 /min 16 /min eCW1 ([facility]) Body temperature 99.1 [degF] 99.1 [degF] eCW1 ( [facility]) Systolic blood pressure 136 mm[Hg] 136 mm[Hg] e CW1 ([facility]) Diastolic blood pressure 71 mm[Hg] 71 mm[Hg] eCW1 ([facility]) Body weight 185 [lb_av] 185 [lb_av] eCW1 ([facility]) Body height 69 [in_i] 69 [in_i] MEDENT ([facility]) 5'9" Body weight 185.00 [lb_av] 185.00 [lb_av] MEDEN T ([facility]) Body mass index (BMI) [Ratio] 27.3 kg/m2 27.3 k g/m2 MEDENT ([facility]) Systolic blood pressure 120 mm[Hg] 120 mm[Hg] M EDENT ([facility]) Diastolic blood pressure 78 mm[Hg] 78 mm[Hg] MEDENT ([facility]) Heart rate 70 /min 70 /min MEDENT ([facility]) Body temperature 98.0 [degF] 98.0 [degF] MEDENT ([facility]) Body temperature 36.7 Malathi 36.7 Malathi MEDENT ( [facility]) Body weight 184 [lb_av] 184 [lb_av] eCW1 ([facility]) Body height 69 [in_i] 69 [in_i] eCW1 ([facility]) Body mass index (BMI) [Ratio] 27.17 kg/m2 27.17 kg/m2 eCW1 ([facility]) Heart rate 55 /min 55 /min eCW1 ([facility]) Respiratory rate 16 /min 16 /min eCW1 ([facility]) Body temperature 98.3 [degF] 98.3 [degF] eCW1 ( [facility]) Systolic blood pressure 113 mm[Hg] 113 mm[Hg] e CW1 ([facility]) Diastolic blood pressure 56 mm[Hg] 56 mm[Hg] eCW1 ([facility]) Body weight 184 [lb_av] 184 [lb_av] eCW1 ([facility]) Body weight 83.46 kg 83.46 kg eCW1 ([facility]) Body height 69 [in_i] 69 [in_i] eCW1 ([facility]) Body mass index (BMI) [Ratio] 27.17 kg/m2 27.17 kg/m2 eCW1 ([facility]) Heart rate 64 /min 64 /min eCW1 ([facility]) Respiratory rate 20 /min 20 /min eCW1 ([facility]) Body temperature 97.2 [degF] 97.2 [degF] eCW1 ( [facility]) Systolic blood pressure 120 mm[Hg] 120 mm[Hg] e CW1 ([facility]) Diastolic blood pressure 62 mm[Hg] 62 mm[Hg] eCW1 ([facility]) Body weight 185 [lb_av] 185 [lb_av] eCW1 ([facility]) Body mass index (BMI) [Ratio] 27.32 kg/m2 27.32 kg/m2 eCW1 ([facility]) Heart rate 69 /min 69 /min eCW1 ([facility]) Respiratory rate 18 /min 18 /min eCW1 ([facility]) Body temperature 97.7 [degF] 97.7 [degF] eCW1 ( [facility]) Systolic blood pressure 112 mm[Hg] 112 mm[Hg] e CW1 ([facility]) Diastolic blood pressure 63 mm[Hg] 63 mm[Hg] eCW1 ([facility]) Body weight kg eCW1 ([facility]) Body height 69 [in_i] 69 [in_i] eCW1 ([facility]) Body height 69 [in_i] 69 [in_i] eCW1 ([facility]) Body weight 185.5 [lb_av] 185.5 [lb_av] eCW1 ([facility]) Heart rate 66 /min 66 /min eCW1 ([facility]) Respiratory rate 18 /min 18 /min eCW1 ([facility]) Body temperature 97.8 [degF] 97.8 [degF] eCW1 ( [facility]) Systolic blood pressure 103 mm[Hg] 103 mm[Hg] e CW1 ([facility]) Diastolic blood pressure 59 mm[Hg] 59 mm[Hg] eCW1 ([facility]) Body mass index (BMI) [Ratio] 27.39 kg/m2 27.39 kg/m2 eCW1 ([facility]) Body weight 187.9 [lb_av] 187.9 [lb_av] eCW1 ([facility]) Body weight kg eCW1 ([facility]) Body height 69 [in_i] 69 [in_i] eCW1 ([facility]) Body mass index (BMI) [Ratio] 27.74 kg/m2 27.74 kg/m2 eCW1 ([facility]) Heart rate 61 /min 61 /min eCW1 ([facility]) Respiratory rate 17 /min 17 /min eCW1 ([facility]) Body temperature 98.4 [degF] 98.4 [degF] eCW1 ( [facility]) Systolic blood pressure 143 mm[Hg] 143 mm[Hg] e CW1 ([facility]) Diastolic blood pressure 66 mm[Hg] 66 mm[Hg] eCW1 ([facility]) Systolic blood pressure 120 mm[Hg] 120 mm[Hg] [facility] Diastolic blood pressure 68 mm[Hg] 68 mm[Hg] [facility] Heart rate 71 /min 71 /min [facility] Body height 175.3 cm 175.3 cm [facility] Body weight 85.276 kg 85.276 kg [facility] Body mass index (BMI) [Ratio] 27.76 kg/m2 27.76 kg/m2 [facility] Oxygen saturation in Arterial blood by Pulse oximetry 99 % 99 % [facility] Body weight 187.9 [lb_av] 187.9 [lb_av] eCW1 ([facility]) Body weight kg eCW1 ([facility]) Body height 69 [in_i] 69 [in_i] W1 ([facility]) Body mass index (BMI) [Ratio] 27.74 kg/m2 27.74 kg/m2 eCW1 ([facility]) Heart rate 59 /min 59 /min eCW1 ([facility]) Respiratory rate 16 /min 16 /min eCW1 ([facility]) Body temperature 98.3 [degF] 98.3 [degF] eCW1 ( [facility]) Systolic blood pressure 115 mm[Hg] 115 mm[Hg] e CW1 ([facility]) Diastolic blood pressure 69 mm[Hg] 69 mm[Hg] eCW1 ([facility]) Body weight 185 [lb_av] 185 [lb_av] eCW1 ([facility]) Body height 69 [in_i] 69 [in_i] eCW1 ([facility]) Body mass index (BMI) [Ratio] 27.32 kg/m2 27.32 kg/m2 eCW1 ([facility]) Heart rate 55 /min 55 /min eCW1 ([facility]) Respiratory rate 18 /min 18 /min eCW1 ([facility]) Body temperature 96.1 [degF] 96.1 [degF] eCW1 ( [facility]) Systolic blood pressure 149 mm[Hg] 149 mm[Hg] e CW1 ([facility]) Diastolic blood pressure 72 mm[Hg] 72 mm[Hg] eCW1 ([facility]) Body weight 187 [lb_av] 187 [lb_av] eCW1 ([facility]) Body height 69 [in_i] 69 [in_i] eCW1 ([facility]) Body mass index (BMI) [Ratio] 27.61 kg/m2 27.61 kg/m2 eCW1 ([facility]) Heart rate 66 /min 66 /min eCW1 ([facility]) Respiratory rate 18 /min 18 /min eCW1 ([facility]) Body temperature 98.2 [degF] 98.2 [degF] eCW1 ( [facility]) Body weight 187.0 [lb_av] 187.0 [lb_av] eCW1 ([facility]) Body height 69 [in_i] 69 [in_i] eCW1 ([facility]) Body mass index (BMI) [Ratio] 27.61 kg/m2 27.61 kg/m2 eCW1 ([facility]) Heart rate 58 /min 58 /min eCW1 ([facility]) Respiratory rate 18 /min 18 /min eCW1 ([facility]) Body temperature 96.9 [degF] 96.9 [degF] eCW1 ( [facility]) Systolic blood pressure 127 mm[Hg] 127 mm[Hg] e CW1 ([facility]) Diastolic blood pressure 63 mm[Hg] 63 mm[Hg] eCW1 ([facility]) Body weight 186.0 [lb_av] 186.0 [lb_av] eCW1 ([facility]) Body height 69 [in_i] 69 [in_i] eCW1 ([facility]) Body mass index (BMI) [Ratio] 27.46 kg/m2 27.46 kg/m2 eCW1 ([facility]) Heart rate 90 /min 90 /min eCW1 ([facility]) Respiratory rate 20 /min 20 /min eCW1 ([facility]) Body temperature 96.9 [degF] 96.9 [degF] eCW1 ( [facility]) Systolic blood pressure 130 mm[Hg] 130 mm[Hg] e CW1 ([facility]) Diastolic blood pressure 80 mm[Hg] 80 mm[Hg] eCW1 ([facility]) Body weight 185 [lb_av] 185 [lb_av] eCW1 ([facility]) Body weight kg eCW1 ([facility]) Body height 69 [in_i] 69 [in_i] eCW1 ([facility]) Body mass index (BMI) [Ratio] 27.32 kg/m2 27.32 kg/m2 eCW1 ([facility]) Heart rate 65 /min 65 /min eCW1 ([facility]) Respiratory rate 18 /min 18 /min eCW1 ([facility]) Body temperature 97.9 [degF] 97.9 [degF] eCW1 ( [facility]) Systolic blood pressure 112 mm[Hg] 112 mm[Hg] e CW1 ([facility]) Diastolic blood pressure 56 mm[Hg] 56 mm[Hg] eCW1 ([facility]) Body weight 185 [lb_av] 185 [lb_av] eCW1 ([facility]) Body weight kg eCW1 ([facility]) Body height 69 [in_i] 69 [in_i] eCW1 ([facility]) Body mass index (BMI) [Ratio] 27.32 kg/m2 27.32 kg/m2 eCW1 ([facility]) Heart rate 73 /min 73 /min eCW1 ([facility]) Respiratory rate 17 /min 17 /min eCW1 ([facility]) Body temperature 97.1 [degF] 97.1 [degF] eCW1 ( [facility]) Systolic blood pressure 134 mm[Hg] 134 mm[Hg] e CW1 ([facility]) Diastolic blood pressure 77 mm[Hg] 77 mm[Hg] eCW1 ([facility]) Body weight 189 [lb_av] 189 [lb_av] eCW1 ([facility]) Body height 69 [in_i] 69 [in_i] eCW1 ([facility]) Body mass index (BMI) [Ratio] 27.91 kg/m2 27.91 kg/m2 eCW1 ([facility]) Heart rate 62 /min 62 /min eCW1 ([facility]) Respiratory rate 18 /min 18 /min eCW1 ([facility]) Body temperature 96.5 [degF] 96.5 [degF] eCW1 ( [facility]) Systolic blood pressure 117 mm[Hg] 117 mm[Hg] e CW1 ([facility]) Diastolic blood pressure 60 mm[Hg] 60 mm[Hg] eCW1 ([facility]) Body mass index (BMI) [Ratio] 27.91 kg/m2 27.91 kg/m2 eCW1 ([facility]) Body weight 189 [lb_av] 189 [lb_av] eCW1 ([facility]) Body weight kg eCW1 ([facility]) Body height 69 [in_i] 69 [in_i] eCW1 ([facility]) Systolic blood pressure 106 mm[Hg] 106 mm[Hg] e CW1 ([facility]) Heart rate 78 /min 78 /min eCW1 ([facility]) Diastolic blood pressure 54 mm[Hg] 54 mm[Hg] eCW1 ([facility]) Respiratory rate 22 /min 22 /min eCW1 ([facility]) Body temperature 97.4 [degF] 97.4 [degF] eCW1 ( [facility]) Body weight 189 [lb_av] 189 [lb_av] eCW1 ([facility]) Body weight kg eCW1 ([facility]) Body height 69 [in_i] 69 [in_i] eCW1 ([facility]) Body mass index (BMI) [Ratio] 27.91 kg/m2 27.91 kg/m2 W1 ([facility]) Heart rate 82 /min 82 /min eCW1 ([facility]) Respiratory rate 17 /min 17 /min eCW1 ([facility]) Body temperature 96.8 [degF] 96.8 [degF] eCW1 ( [facility]) Systolic blood pressure 120 mm[Hg] 120 mm[Hg] e CW1 ([facility]) Diastolic blood pressure 57 mm[Hg] 57 mm[Hg] eCW1 ([facility]) Systolic blood pressure 126 mm[Hg] 126 mm[Hg] [facility] Diastolic blood pressure 74 mm[Hg] 74 mm[Hg] [facility] Heart rate 59 /min 59 /min [facility] Body height 175.3 cm 175.3 cm [facility] Body weight 84.369 kg 84.369 kg [facility] Body mass index (BMI) [Ratio] 27.47 kg/m2 27.47 kg/m2 [facility] Oxygen saturation in Arterial blood by Pulse oximetry 97 % 97 % [facility] Body weight 189 [lb_av] 189 [lb_av] eCW1 ([facility]) Body height 69 [in_i] 69 [in_i] eCW1 ([facility]) Body mass index (BMI) [Ratio] 27.91 kg/m2 27.91 kg/m2 eCW1 ([facility]) Heart rate 77 /min 77 /min eCW1 ([facility]) Respiratory rate 16 /min 16 /min eCW1 ([facility]) Body temperature 96.8 [degF] 96.8 [degF] eCW1 ( [facility] Systolic blood pressure 131 mm[Hg] 131 mm[Hg] e CW1 ([facility]) Diastolic blood pressure 65 mm[Hg] 65 mm[Hg] eCW1 ([facility]) Body weight 189.8 [lb_av] 189.8 [lb_av] eCW1 ([facility]) Body height 69 [in_i] 69 [in_i] eCW1 ([facility]) Body mass index (BMI) [Ratio] 28.03 kg/m2 28.03 kg/m2 eCW1 ([facility]) Heart rate 81 /min 81 /min eCW1 ([facility]) Respiratory rate 20 /min 20 /min eCW1 ([facility]) Body temperature 97.2 [degF] 97.2 [degF] eCW1 ( [facility]) Systolic blood pressure 110 mm[Hg] 110 mm[Hg] e CW1 ([facility]) Diastolic blood pressure 62 mm[Hg] 62 mm[Hg] eCW1 ([facility]) Body weight 188.4 [lb_av] 188.4 [lb_av] eCW1 ([facility]) Body height 69 [in_i] 69 [in_i] eCW1 ([facility]) Body mass index (BMI) [Ratio] 27.82 kg/m2 27.82 kg/m2 eCW1 ([facility]) Heart rate 67 /min 67 /min eCW1 ([facility]) Respiratory rate 18 /min 18 /min eCW1 ([facility]) Body temperature 97.6 [degF] 97.6 [degF] eCW1 ( [facility]) Systolic blood pressure 116 mm[Hg] 116 mm[Hg] e CW1 ([facility]) Diastolic blood pressure 59 mm[Hg] 59 mm[Hg] eCW1 ([facility]) Patient Treatment Plan of Care Planned Activity Planned Date Details Description Data Source (s) NITROFURANTOIN, MACROCRYSTALS 25 MG / Ni trofurantoin, Monohydrate 75 MG Oral Capsule [Macrobid] 07/04/2021 12:00:00 AM EDT eC W1 ([facility]) NITROFURANTOIN, MACROCRYSTALS 25 MG / Ni trofurantoin, Monohydrate 75 MG Oral Capsule [Macrobid] 07/04/2021 12:00:00 AM EDT eC W1 ([facility]) Oxycodone Hydrochloride 10 MG Oral Tablet 06/22/2021 12:00:00 AM ED T eCW1 ([facility]) Oxycodone Hydrochloride 10 MG Oral Tablet 06/22/2021 12:00:00 AM ED T eCW1 ([facility]) Oxycodone Hydrochloride 10 MG Oral Tablet 06/22/2021 12:00:00 AM ED T eCW1 ([facility]) Oxycodone Hydrochloride 10 MG Oral Tablet 06/15/2021 12:00:00 AM ED T eCW1 ([facility]) Oxycodone Hydrochloride 10 MG Oral Tablet 06/15/2021 12:00:00 AM ED T eCW1 ([facility]) Oxycodone Hydrochloride 10 MG Oral Tablet 06/15/2021 12:00:00 AM ED T eCW1 ([facility]) Oxycodone Hydrochloride 10 MG Oral Tablet 05/21/2021 12:00:00 AM ED T eCW1 ([facility]) Oxycodone Hydrochloride 10 MG Oral Tablet 05/21/2021 12:00:00 AM ED T eCW1 ([facility]) Oxycodone Hydrochloride 10 MG Oral Tablet 04/13/2021 12:00:00 AM ED T eCW1 ([facility]) Oxycodone Hydrochloride 10 MG Oral Tablet 03/20/2021 12:00:00 AM ED T eCW1 ([facility]) Oxycodone Hydrochloride 10 MG Oral Tablet 02/14/2021 12:00:00 AM ED T eCW1 ([facility]) Oxycodone Hydrochloride 10 MG Oral Tablet 01/12/2021 12:00:00 AM ED T eCW1 ([facility]) Oxycodone Hydrochloride 10 MG Oral Tablet 01/12/2021 12:00:00 AM ED T eCW1 ([facility]) Oxycodone Hydrochloride 10 MG Oral Tablet 01/12/2021 12:00:00 AM ED T eCW1 ([facility]) Oxycodone Hydrochloride 10 MG Oral Tablet 01/12/2021 12:00:00 AM ED T eCW1 ([facility]) Combivent Respimat 20-100 mcg/act 11/24/2020 12:00:00 AM EST eCW1 ([facility]) Combivent Respimat 20-100 mcg/act 11/24/2020 12:00:00 AM EST eCW1 ([facility]) Combivent Respimat 20-100 mcg/act 11/24/2020 12:00:00 AM EST eCW1 ([facility]) Combivent Respimat 20-100 mcg/act 11/24/2020 12:00:00 AM EST eCW1 ([facility]) Combivent Respimat 20-100 mcg/act 11/24/2020 12:00:00 AM EST eCW1 ([facility]) Combivent Respimat 20-100 mcg/act 11/24/2020 12:00:00 AM EST eCW1 ([facility]) Oxycodone Hydrochloride 10 MG Oral Tablet 11/16/2020 12:00:00 AM ES T eCW1 ([facility]) Fluconazole 200 MG Oral Tablet 11/16/2020 12:00:00 AM EST [facility] Oxycodone Hydrochloride 10 MG Oral Tablet 10/18/2020 12:00:00 AM ES T eCW1 ([facility]) Oxycodone Hydrochloride 10 MG Oral Tablet 10/18/2020 12:00:00 AM ES T eCW1 ([facility]) Oxycodone Hydrochloride 10 MG Oral Tablet 09/13/2020 12:00:00 AM ES T eCW1 ([facility]) Oxycodone Hydrochloride 10 MG Oral Tablet 09/13/2020 12:00:00 AM ES T eCW1 ([facility]) Oxycodone Hydrochloride 10 MG Oral Tablet 08/29/2020 12:00:00 AM ES T eCW1 ([facility]) Oxycodone Hydrochloride 10 MG Oral Tablet 08/29/2020 12:00:00 AM ES T eCW1 ([facility]) Oxycodone Hydrochloride 10 MG Oral Tablet 07/31/2020 12:00:00 AM ES T eCW1 ([facility]) Amlodipine 2.5 MG Oral Tablet 07/28/2020 12:00:00 AM EST [facility] Lidocaine 40 MG/ML Topical Cream 07/25/2020 12:00:00 AM EST [facility] Amlodipine 2.5 MG Oral Tablet 07/11/2020 12:00:00 AM EDT eCW1 ([facility]) metaxalone 800 MG Oral Tablet 07/04/2020 12:00:00 AM EDT [facility] Petrolatum 610 MG/ML Topical Cream 06/29/2020 12:00:00 AM EDT [facility] Oxycodone Hydrochloride 10 MG Oral Tablet 06/28/2020 12:00:00 AM ED T eCW1 ([facility]) Oxycodone Hydrochloride 10 MG Oral Tablet 06/28/2020 12:00:00 AM ED T eCW1 ([facility]) Oxycodone Hydrochloride 10 MG Oral Tablet 06/28/2020 12:00:00 AM ED T eCW1 ([facility]) Amlodipine 5 MG Oral Tablet 05/24/2020 12:00:00 AM EDT [facility] Losartan Potassium 100 MG Oral Tablet 05/24/2020 12:00:00 AM EDT [facility] XTAMPZA ER 9 MG C12A 06/24/2019 12:00:00 AM EDT [facility] Docusate Sodium 100 MG Oral Capsule 04/19/2019 12:00:00 AM EDT [facility] Fluconazole 200 MG Oral Tablet 05/04/2018 12:00:00 AM EDT [facility] Cyclobenzaprine hydrochloride 10 MG Oral Tablet 01/10/2014 12:00:00 AM EDT [facility] Baclofen 10 MG Oral Tablet 12/19/2010 12:00:00 AM EDT [facility] tadalafil 20 MG Oral Tablet [Cialis] 05/09/2009 12:00:00 AM EDT [facility] Rosuvastatin calcium 10 MG Oral Tablet [facility]
[2021-08-17] MEDS ORDERED: ONDANSETRON 4MG/2ML VIAL IV ONE (00:55)
[2021-08-17] MEDS ORDERED: MORPHINE 4 MG/ML 1ML VIAL/SYRINGE (J2270) IV ONE ×3 (00:55→07:50)
[2021-08-17 01:18] LABS: BASO # 0.1 10^3/uL (0.0-0.2); BASO % 0.6 % (0.0-1.0); EOS # 0.2 10^3/uL (0.0-0.5); HEMATOCRIT 43.5 % (42.0-52.0); HEMOGLOBIN 13.7 g/dl (13.5-17.5); LYMPH # 1.8 10^3/uL (1.5-5.0); LYMPH % 14.8 % (24.0-44.0); MEAN CORPUSCULAR HEMOGLOBIN 31.4 pg (27.0-33.0); MEAN CORPUSCULAR HGB CONC 31.5 g/dl (32.0-36.5); MEAN CORPUSCULAR VOLUME 99.8 fl (80.0-96.0); MONO # 1.1 10^3/uL (0.0-0.8); NEUTROPHILS # 8.8 10^3/uL (1.5-8.5); NEUTROPHILS % 72.9 % (36.0-66.0); PLATELET COUNT, AUTOMATED 240 10^3/uL (150-450); RED BLOOD COUNT 4.36 10^6/uL (4.30-6.10)
[2021-08-17 01:28] LABS: INR 0.97; PROTHROMBIN TIME 13.3 SECONDS (12.7-14.5)
[2021-08-17 01:42] LABS: CALCIUM LEVEL 9.2 MG/DL (8.8-10.2); CREATININE FOR GFR 1.76 MG/DL (0.70-1.30); GLOMERULAR FILTRATION RATE 41.6 (>49); MAGNESIUM LEVEL 2.1 MG/DL (1.8-2.4); POTASSIUM SERUM 4.9 MEQ/L (3.5-5.1)
[2021-08-17] MEDS ORDERED: oxyCODONE 5MG TAB PO ONE (02:45)
--- OUTSIDE RECORDS SUMMARY | 2021-08-17 03:19 | CCD ---
Author Author [facility] Organization 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 Name Role Phone Radha Quintero Unavailable PROBLEMS Type Condition ICD9-CM Code AHL52-VP Code Onset Dates Condition S tatus W/U Status Risk SNOMED Code Notes Problem Anticoagulant long-term use Z79.01 Active confirmed 883021500 Problem Mixed hyperlipidemia E78.2 Active confirmed 403501310 Problem Major depressive disorder, single episode, unspecified F32.9 Active confirmed 02132786 Problem History of OK (myocardial infarction) I25.2 Ac tive confirmed 798431851 Problem Vitamin D deficiency, unspecified E55.9 Active con firmed 97085210 Problem Non-pressure chronic ulcer o f other part of left foot with unspecified severity L97.529 Active confirmed 116381320 Problem Stage II pressure ulcer of sacral region L89.152 Active confirmed 433198476 Problem 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 Active confirmed 951663882 Problem Wound of right lower extremity S81.801A Active confirmed 624588022 Problem Pressure ulcer of right foot, stage 2 L89.892 Ac tive confirmed 831409829 Problem Stage IV pressure ulcer of sacral region L89.154 Active confirmed 917256341 Problem Stage II pressure ulcer of right hip L89.212 Act qamar confirmed 255850510 Problem Open wound of right foot, initial encounter S91.30 1A Active confirmed 972769896 Problem Disseminated candidiasis B37.7 Active confirmed 72991319 Problem 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 Active confir med 29343818 Problem Neurogenic incontinence N31.9 Active confirmed 312723800 Problem Iron deficiency anemia, unspecified iron deficiency an emia type D50.9 Active confirmed 31596737 Problem Recurrent UTI N39.0 Active confirmed 900266 001 Problem Nicotine use disorder F17.200 Active confirmed 32359011 Problem Neuropathic pain M79.2 Active confirmed 247 029584 Problem 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 Active confirmed 086198082 Problem Obesity (BMI 30-39.9) E66.9 Active confirmed 406162054 Problem Lumbar spondylosis M47.816 Active confirmed 136846617 Problem Prostate cancer screening Z12.5 Active confirmed 440760348 Problem Chronic pain syndrome G89.4 Active confirmed 452329541 Problem Postlaminectomy syndrome of lumbosacral region M96 .1 Active confirmed 980459547 Problem Lumbar spondylolysis M43.06 Active confirmed 417226794 Problem Ischemic cardiomyopathy I25.5 Active confirmed 106418087 Problem Hyperalgesia R20.8 Active confirmed 2100762 8 Problem Contracture of lower leg joint M24.569 Active confi rmed 2070095 Problem CKD (chronic kidney disease) stage 3, GFR 30-59 ml/min N18.3 Active confirmed 623986882 Problem Ataxia R27.0 Active confirmed 39068562 Problem Gout M10.9 Active confirmed 71059884 Problem NAFLD (nonalcoholic fatty liver disease) K76.0 Active confirmed 989315307 Problem Diabetes mellitus type 2 with complications E11.8 Active confirmed 271702245 Problem Lumbar post-laminectomy syndrome M96.1 Active conf irmed 201212713 Problem Hypertension, essential I10 Active confirmed 08303014 Problem Acquired phimosis N47.1 Active confirmed 26 1863402 Problem Sacral decubitus ulcer, stage IV L89.154 Active confirmed 235047720 Problem Phimosis N47.1 Active confirmed 001049074 Problem Peripheral vascular disease I73.9 Active confirmed 253531358 Problem Vitamin D deficiency E55.9 Active confirmed 85099613 Problem ED (erectile dysfunction) N52.9 Active confirmed 239704978 Problem ARON (obstructive sleep apnea) G47.33 Active confirm ed 56961441 Problem Intervertebral disc disorder with radiculopathy of lumbar region M51.16 Active confirmed 718934186742796 Problem Gastroesophageal reflux disease without esophagitis K21.9 Active confirmed 984108153 Problem Osteoporotic compression fracture of spine with delayed healing M80.88XG Active confirmed 709161777 Problem Paronychia of great toe of right foot L03.031 Ac tive confirmed 506853634 Problem Community acquired pneumonia J18.9 Active confirme d 600153855 Problem Pressure ulcer of coccygeal region, stage 2 L89.15 2 Active confirmed Problem Stage II pressure ulcer of right buttock L89.312 Active confirmed 036699067 Problem Encounter for immunization Z23 Active confirmed 782543400 Problem Constipation, chronic K59.09 Active confirmed 332777142 Problem Stage III pressure ulcer of sacral region L89.153 Active confirmed 577890982 Problem Venous insufficiency of both lower extremities I87 .2 Active confirmed 554091844 Problem Apraxia R48.2 Active confirmed 21339309 Problem Macrocytosis D75.89 Active confirmed 8736668 00 Problem Stage 2 moderate COPD by GOLD classification J44.9 Active confirmed 678559794 ALLERGIES Allergen (clinical drug ingredient) Drug/Non Drug Allergy do cumented on EMR Reaction Allergy Type Onset Date Status Wellbutrin agitation Drug Allergy Active fluoxetine PROzac(NDC Code:[address]-63) depression Drug Allergy Active sertraline Zoloft(NDC Code:[address]-43) Diarrhea Drug Allergy Active mirtazapine Remeron(NDC Code:[address]-30) nightmares Drug Allergy Active ENCOUNTERS from 1955 to 2021-08-16 Encounter Location Date Provider Diagnosis [facility] [address] Floor [phone] [place] [address] Aug, Radha Quintero Postlaminectomy synd deangelo of lumbosacral region M96.1 IMMUNIZATIONS Vaccine Route [...] dose #1 given elsewhere Unspecified IM Intramuscular [facility] 2020 Administered Influenza 6mo & up Fluzone [...] Education Language: Question Answer Notes Languages spoken: Italian Baptist: Question Answer Notes [facility] 05 [facility] Drug and Alcohol Question Answer Notes Total [...] SEVERE PAIN MDD: 2 for 30 days Aug, Active Acetominophen-325 mg 325 mg 1 or 2 tabs orally every four ho urs prn for 30 Days Active May Have - large non-skid socks for dx=G82.21 (para plegia) Daily for 90 day(s) Apr, Active May Use 1 brace for left lower extremi ty as directed DX:R27.0 daily contracture of lower joint for 30 days fax to [phone] Mar, Active Aspirin 81 MG 1 tablet [...] a day for 90 day(s) Active PROCEDURES No Information RESULTS No Results REASON FOR VISIT refill Oxycodone MEDICAL (GENERAL) HISTORY Type Description Date Medical History CAD, s/p AWMI post-op [place]go ctomy-05/2017 very small apical thrombus, LVEF 40%-akinesis of apex, mid ant, mid anteroseptal, LV diastolic dysfx by 05/2017 TTE-Antec RST s ischemia but focal/global abnormality, LVEF 28%, high risk-Anayeli/12/2017 cath-no significant CAD-Burgin/sp ICD 01/12/2018-Burgin/02/19/19 TTE c LVEF 50-55%/no french dysfx-[facility] [...] to 6.25 BID 02/18-06/03 Hospitalization History 1D [employer] RLE cellulitis-WBC 9. 7,CRP 14 (3 at dc), -CT R tib/fib for abscess, -RLE DVT US, rxed c vanco/ceftr, dced on cefdinir 7D, -BCX2 04/10- Goals Section No Information Health Concerns No Information MEDICAL EQUIPMENT No Information MENTAL STATUS No Information FUNCTIONAL STATUS No Information ASSESSMENTS Encounter Date Diagnosis Assessment Notes Treatment Notes Treatm ent Clinical Notes Aug, Postlaminectomy syndrome of lumbosacral region ( ICD-10 - M96.1) PLAN OF TREATMENT Medication Medication Name Sig Start Date Stop Date oxyCODONE HCl 10 MG 1 tablet as needed Orally ev jimi 12 hrs PRN SEVERE PAIN MDD: 2 for 30 days Aug, Next Appt Details Provider Name:Theodore Christy, 2021-08-24 1 1:45:00 AM, [address], , [place], [address], Provider Name:Mackenzie Silva, 10:15:00 AM, [address], , [place], [address], Insurance Providers Payer Name Payer Address Payer Phone Insured Name Patient Relati onship to Insured Coverage Start Date Coverage End Date [facility] [address] [id number] [facility] [phone] [id number] MACKENZIE DOLAN [id number] MEDICARE Part A and B [address] [place] [id number] MACKENZIE DOLAN self
--- OUTSIDE RECORDS SUMMARY | 2021-08-17 03:22 | CCD ---
Author Author [facility] Organization [facility] Address Unknown Phone Unavailable Care Team Providers Care [employer] Pumping [employer] Operator Name Role Phone BARAJAS, L LORI ENROLLMENT MANAGEMENT MANAGER Unavailable Unavailable BARAJAS, L LORI ENROLLMENT MANAGEMENT MANAGER Unavailable Unavailable BARAJAS, L LORI ENROLLMENT MANAGEMENT MANAGER Unavailable Unavailable BARAJAS, L LORI ENROLLMENT MANAGEMENT MANAGER Unavailable Unavailable BARAJAS, L LORI ENROLLMENT MANAGEMENT MANAGER Unavailable Unavailable BARAJAS, L LORI ENROLLMENT MANAGEMENT MANAGER Unavailable Unavailable BARAJAS, L LORI ENROLLMENT MANAGEMENT MANAGER Unavailable Unavailable BARAJAS, L LORI ENROLLMENT MANAGEMENT MANAGER Unavailable Unavailable BARAJAS, L LORI ENROLLMENT MANAGEMENT MANAGER Unavailable Unavailable BARAJAS, L LORI ENROLLMENT MANAGEMENT MANAGER Unavailable Unavailable BARAJAS, L LORI ENROLLMENT MANAGEMENT MANAGER Unavailable Unavailable BARAJAS, L LORI ENROLLMENT MANAGEMENT MANAGER Unavailable Unavailable BARAJAS, L LORI ENROLLMENT MANAGEMENT MANAGER Unavailable Unavailable BARAJAS, L LORI ENROLLMENT MANAGEMENT MANAGER Unavailable Unavailable BARAJAS, L LORI ENROLLMENT MANAGEMENT MANAGER Unavailable Unavailable BARAJAS, L LORI ENROLLMENT MANAGEMENT MANAGER Unavailable Unavailable BARAJAS, L LORI ENROLLMENT MANAGEMENT MANAGER Unavailable Unavailable BARAJAS, L LORI ENROLLMENT MANAGEMENT MANAGER Unavailable Unavailable BARAJAS, L LORI ENROLLMENT MANAGEMENT MANAGER Unavailable Unavailable BARAJAS, L LORI ENROLLMENT MANAGEMENT MANAGER Unavailable Unavailable BARAJAS, L LORI ENROLLMENT MANAGEMENT MANAGER Unavailable Unavailable BARAJAS, L LORI ENROLLMENT MANAGEMENT MANAGER Unavailable Unavailable BARAJAS, L LORI ENROLLMENT MANAGEMENT MANAGER Unavailable Unavailable BARAJAS, L LORI ENROLLMENT MANAGEMENT MANAGER Unavailable Unavailable BARAJAS, L LORI ENROLLMENT MANAGEMENT MANAGER Unavailable Unavailable BARAJAS, L LORI ENROLLMENT MANAGEMENT MANAGER Unavailable Unavailable BARAJAS, L LORI ENROLLMENT MANAGEMENT MANAGER Unavailable Unavailable BARAJAS, L LORI ENROLLMENT MANAGEMENT MANAGER Unavailable Unavailable BARAJAS, L LORI ENROLLMENT MANAGEMENT MANAGER Unavailable Unavailable BARAJAS, L LORI ENROLLMENT MANAGEMENT MANAGER Unavailable Unavailable BARAJAS, L LORI ENROLLMENT MANAGEMENT MANAGER Unavailable Unavailable BARAJAS, L LORI ENROLLMENT MANAGEMENT MANAGER Unavailable Unavailable BARAJAS, L LORI ENROLLMENT MANAGEMENT MANAGER Unavailable Unavailable BARAJAS, L LORI ENROLLMENT MANAGEMENT MANAGER Unavailable Unavailable Fons, M Xochitl DENTAL CLAIMS PROCESSOR Unavailable Unavailable Fons, M Xochitl DENTAL CLAIMS PROCESSOR Unavailable Unavailable Fons, M Xochitl DENTAL CLAIMS PROCESSOR Unavailable Unavailable Fons, M Xochitl DENTAL CLAIMS PROCESSOR Unavailable Unavailable Fons, M Xochitl DENTAL CLAIMS PROCESSOR Unavailable Unavailable Fons, M Xochitl DENTAL CLAIMS PROCESSOR Unavailable Unavailable Fons, M Xochitl DENTAL CLAIMS PROCESSOR Unavailable Unavailable Fons, M Xochitl DENTAL CLAIMS PROCESSOR Unavailable Unavailable Fons, M Xochitl DENTAL CLAIMS PROCESSOR Unavailable Unavailable Fons, M Xochitl DENTAL CLAIMS PROCESSOR Unavailable Unavailable Fons, M Xochitl DENTAL CLAIMS PROCESSOR Unavailable Unavailable Fons, M Xochitl DENTAL CLAIMS PROCESSOR Unavailable Unavailable Fons, M Xochitl DENTAL CLAIMS PROCESSOR Unavailable Unavailable Fons, M Xochitl DENTAL CLAIMS PROCESSOR Unavailable Unavailable Fons, M Xochitl DENTAL CLAIMS PROCESSOR Unavailable Unavailable Fons, M Xochitl DENTAL CLAIMS PROCESSOR Unavailable Unavailable Fons, M Xochitl DENTAL CLAIMS PROCESSOR Unavailable Unavailable Fons, M Xochitl DENTAL CLAIMS PROCESSOR Unavailable Unavailable Fons, M Xochitl DENTAL CLAIMS PROCESSOR Unavailable Unavailable Fons, M Xochitl DENTAL CLAIMS PROCESSOR Unavailable Unavailable Fons, M Xochitl DENTAL CLAIMS PROCESSOR Unavailable Unavailable Fons, M Xochitl DENTAL CLAIMS PROCESSOR Unavailable Unavailable Fons, M Xochitl DENTAL CLAIMS PROCESSOR Unavailable Unavailable Fons, M Xochitl DENTAL CLAIMS PROCESSOR Unavailable Unavailable Fons, M Xochitl DENTAL CLAIMS PROCESSOR Unavailable Unavailable Fons, M Xochitl DENTAL CLAIMS PROCESSOR Unavailable Unavailable Fons, M Xochitl DENTAL CLAIMS PROCESSOR Unavailable Unavailable Fons, M Xochitl DENTAL CLAIMS PROCESSOR Unavailable Unavailable Fons, M Xochitl DENTAL CLAIMS PROCESSOR Unavailable Unavailable Fons, M Xochitl DENTAL CLAIMS PROCESSOR Unavailable Unavailable Fons, M Xochitl DENTAL CLAIMS PROCESSOR Unavailable Unavailable Fons, M Xochitl DENTAL CLAIMS PROCESSOR Unavailable Unavailable Fons, M Xochitl DENTAL CLAIMS PROCESSOR Unavailable Unavailable Fons, M Xochitl DENTAL CLAIMS PROCESSOR Unavailable Unavailable Fons, M Xochitl DENTAL CLAIMS PROCESSOR Unavailable Unavailable Fons, M Xochitl DENTAL CLAIMS PROCESSOR Unavailable Unavailable Fons, M Xochitl DENTAL CLAIMS PROCESSOR Unavailable Unavailable Fons, M Xochitl DENTAL CLAIMS PROCESSOR Unavailable Unavailable Fons, M Xochitl DENTAL CLAIMS PROCESSOR Unavailable Unavailable Fons, M Xochitl DENTAL CLAIMS PROCESSOR Unavailable Unavailable Fons, M Xochitl DENTAL CLAIMS PROCESSOR Unavailable Unavailable Fons, M Xochitl DENTAL CLAIMS PROCESSOR Unavailable Unavailable Fons, M Xochitl DENTAL CLAIMS PROCESSOR Unavailable Unavailable Fons, M Xochitl DENTAL CLAIMS PROCESSOR Unavailable Unavailable Fons, M Xochitl DENTAL CLAIMS PROCESSOR Unavailable Unavailable Fons, M Xochitl DENTAL CLAIMS PROCESSOR Unavailable Unavailable Fons, M Xochitl DENTAL CLAIMS PROCESSOR Unavailable Unavailable Fons, M Xochitl DENTAL CLAIMS PROCESSOR Unavailable Unavailable Fons, M Xochitl DENTAL CLAIMS PROCESSOR Unavailable Unavailable Fons, M Xochitl DENTAL CLAIMS PROCESSOR Unavailable Unavailable Fons, M Xochitl DENTAL CLAIMS PROCESSOR Unavailable Unavailable Fons, M Xochitl DENTAL CLAIMS PROCESSOR Unavailable Unavailable Fons, M Xochitl DENTAL CLAIMS PROCESSOR Unavailable Unavailable Re-disclosure Warning The records that [...] is protected by Article 27-F of the [facility] Public Health law. If you continue you may have access to information: Regarding HIV / AIDS; Provided by facilities licensed or operated by the [facility] Office of Mental Health; or Provided by the [facility] Office for People With Developmental Disabilities. If such information is present, then the following [facility] mandated warning applies: This information has been [...] law may result in a fine or correction sentence or both. A general authorization for the release of medical or other information is NOT sufficient authorization for further disc losure. Family History Family Member Name Family Member Gender Family Member Status Date o f Status Description Data Source(s) Unknown Male Problem MEDENT ([facility]) Unknown Male Problem MEDENT ([facility] () - age 62 Unknown Female Problem MEDENT ([facility], ) Encounters Encounter Providers Location Date Indications Data Source(s ) Unknown [address] [facility] [address] 08/15/2021 12:00:00 AM EST eCW1 ([facility]) Outpatient Attender: Xochitl SPAULDING.WILL-SJPIlanaWILL 12:52:49 PM EST - 08/14/2021 01:34:21 PM EST [facility] Outpatient [address] [facility] [address] 08/08/2021 12:00:00 AM EST eCW1 ([facility]) Unknown [address] [facility] [address] 08/06/2021 12:00:00 AM EST eCW1 ([facility]) Unknown [address] [facility] [place] [address] 08/06/2021 12:00:00 AM EST eCW1 ([facility]) (WND STRTCH) Stretcher Required Patients [address] [place] [address] 07/30/2021 12:00:00 AM EST eCW1 (Counts include 234 beds at the [facility]) Unknown [address] [facility] [address] 07/27/2021 12:00:00 AM EST eCW1 ([facility]) Unknown [address] [facility] [address] 07/16/2021 12:00:00 AM EDT eCW1 ([facility]) Unknown [address] [facility] [place] [address] 07/13/2021 12:00:00 AM EDT eCW1 ([facility]) (WND STRTCH) Stretcher Required Patients [address] [place] [address] 07/06/2021 12:00:00 AM EDT eCW1 (Counts include 234 beds at the [facility]) Unknown [address] [facility] [address] 07/05/2021 12:00:00 AM EDT eCW1 ([facility]) Unknown [address] [facility] [address] 07/05/2021 12:00:00 AM EDT [facility]CW1 ([facility]) Office Visit, Est Pt., Level 4 PC [address] [place] [address] 07/04/2021 12:00:00 AM EDT eCW1 (Counts include 234 beds at the [facility]) Unknown [address] [facility] [address] 07/03/2021 12:00:00 AM EDT eCW1 ([facility]) Unknown [address] [facility] [address] 07/02/2021 12:00:00 AM EDT eCW1 ([facility]) Out[place] [address] [facility] [address] 06/22/2021 12:00:00 AM EDT eCW1 ([facility]) Unknown [address] [facility] [address] 06/19/2021 12:00:00 AM EDT eCW1 ([facility]) Unknown [address] [facility] [address] 06/19/2021 12:00:00 AM EDT eCW1 ([facility]) Unknown [address] [facility] [address] 06/15/2021 12:00:00 AM EDT eCW1 ([facility]) Outpatient [email or web address]-[email or web address].[email or web address] 06/07/2021 10:52:28 AM EDT [facility] (JUAN FRANCISCO HERRERA) Stretcher Required Patients [address] [place] [address] 06/04/2021 12:00:00 AM EDT eCW1 (Counts include 234 beds at the [facility]) Unknown [address] [place] [address], [place] [address] 05/24/2021 12:00:00 AM EDT eCW1 ([facility]) Unknown [address] [facility] [address] 05/17/2021 12:00:00 AM EDT eCW1 ([facility]) Outpatient Attender: LORI BARAJAS NP [facility] [place] 05/16/2021 09:00:00 AM EDT [facility] ([facility]) Unknown [address] [facility] [address] 05/10/2021 12:00:00 AM EDT eCW1 ([facility]) (WND STRTCH) Stretcher Required Patients [address] [place] [address] 05/04/2021 12:00:00 AM EDT eCW1 (Counts include 234 beds at the [facility]) Outpatient [address] [facility] [address] 04/23/2021 12:00:00 AM EDT eCW1 ([facility]) Unknown [address] [facility] [address] 04/13/2021 12:00:00 AM EDT eCW1 ([facility]) Unknown [address] [facility] [address] 04/09/2021 12:00:00 AM EDT eCW1 ([facility]) (WND STRTCH) Stretcher Required Patients [address] [place] [address] 04/02/2021 12:00:00 AM EDT eCW1 (Counts include 234 beds at the [facility]) Unknown [address] [facility] [place] [address] 03/16/2021 12:00:00 AM EDT eCW1 ([facility]) Outpatient [address] [facility] [place] [address] 03/13/2021 12:00:00 AM EDT eCW1 ([facility]) (WND STRTCH) Stretcher Required Patients [address] [place] [address] 03/05/2021 12:00:00 AM EDT eCW1 (Counts include 234 beds at the [facility]) Outpatient [email or web address] 03/01/2021 11:01:54 AM EDT [facility] Unknown [address] [facility] [address] 02/13/2021 12:00:00 AM EDT eCW1 ([facility]) Outpatient Attender: Xochitl CARPENTERWILL-IRVINGP.WILL 12:00:00 AM EDT - 02/09/2021 11:53:21 AM EDT [facility] (WND JAVIER) Stretcher Required Patients [address] [place] [address] 02/05/2021 12:00:00 AM EDT eCW1 (Counts include 234 beds at the [facility]) Unknown [address] [facility] [place] [address] 01/11/2021 12:00:00 AM EDT eCW1 ([facility]) Outpatient [address] [facility] [place] [address] 01/08/2021 12:00:00 AM EDT eCW1 ([facility]) Unknown [address] [facility] [place] [address] 12/26/2020 12:00:00 AM EDT eCW1 ([facility]) Unknown [address] [facility] [place] [address] 12/15/2020 12:00:00 AM EDT eCW1 ([facility]) Unknown [address] [facility] [place] [address] 12/14/2020 12:00:00 AM EDT eCW1 ([facility]) ([id number]) Est New Patient 61 [address] [place] [address] 12/11/2020 12:00:00 AM EDT eCW1 ([facility]) Outpatient [address] [facility] [address] 12/11/2020 12:00:00 AM EDT eCW1 ([facility]) Unknown [address] [facility] [address] 12/01/2020 12:00:00 AM EDT eCW1 ([facility]) Unknown [address] [facility] [address] 11/30/2020 12:00:00 AM EDT eCW1 ([facility]) Outpatient [email or web address] 11/28/2020 03:10:30 PM EDT [facility] ([facility]UAN FRANCISCO HERRERA) Stretcher Required Patients [address] [place] [address] 11/24/2020 12:00:00 AM EST eCW1 (Counts include 234 beds at the [facility]) [place] [address] [facility] [address] 11/24/2020 12:00:00 AM EST eCW1 ([facility]) Unknown [address] [facility] [address] 11/14/2020 12:00:00 AM EST eCW1 ([facility]) Unknown [address] [facility] [address] 11/07/2020 12:00:00 AM EST eCW1 ([facility]) Unknown [address] [facility] [address] 11/03/2020 12:00:00 AM EST eCW1 ([facility]) Unknown [address] [facility] [address] 11/03/2020 12:00:00 AM EST eCW1 ([facility]) (WND JAVIER) Stretcher Required Patients [address] [place] [address] 10/27/2020 12:00:00 AM EST eCW1 (Counts include 234 beds at the [facility]) Unknown [address] [facility] [address] 10/18/2020 12:00:00 AM EST eCW1 ([facility]) (WND STRBETH) Stretcher Required Patients [address] [place] [address] 09/29/2020 12:00:00 AM EST eCW1 (Counts include 234 beds at the [facility]) TeleMedicine Phone E/M by Phys 11-20 Min [address] [place] [address] 09/13/2020 12:00:00 AM EST eCW1 (Counts include 234 beds at the [facility]) (WND JAVIER) Stretcher Required Patients [address] [place] [address] 09/01/2020 12:00:00 AM EST eCW1 (Counts include 234 beds at the [facility]) Unknown [address] [facility] [address] 08/29/2020 12:00:00 AM EST eCW1 ([facility]) Outpatient ELISE 08/18/2020 08:54:04 AM EST [facility] Outpatient ELIJAHWILL 08/17/2020 12:00:00 AM EST [facility] ([facility] FRANC[facility]CO HERRERA) Stretcher Required Patients [address] [place] [address] 08/04/2020 12:00:00 AM EST eCW1 (Counts include 234 beds at the [facility]) Outpatient Attender: Xochitl SHERWOOD MARISOLWILL 0 12:00:00 AM EST - 08/02/2020 03:58:14 PM EST [facility] Unknown [address] [facility] [place] [address] 07/28/2020 12:00:00 AM EST eCW1 ([facility]) Unknown [address] [facility] [place] [address] 07/21/2020 12:00:00 AM EST eCW1 ([facility]) ([id number]) For Template Bee [address] [place] [address] 07/14/2020 12:00:00 AM EDT eCW1 ([facility]) Unknown [address] [facility], [facility] [address] 07/14/2020 12:00:00 AM EDT eCW1 ([facility]) Outpatient [address] [facility] [address] 07/11/2020 12:00:00 AM EDT eCW1 ([facility]) Unknown [address] [facility] [address] 07/11/2020 12:00:00 AM EDT eCW1 ([facility]) Unknown [address] [facility] [address] 07/05/2020 12:00:00 AM EDT eCW1 ([facility]) Unknown [address] [facility] [address] 06/28/2020 12:00:00 AM EDT eCW1 ([facility]) Unknown [address] [facility] [address] 06/27/2020 12:00:00 AM EDT eCW1 ([facility]) Unknown [address] [facility] [address] 06/22/2020 12:00:00 AM EDT eCW1 ([facility]) Outpatient [address] [facility] [address] 06/22/2020 12:00:00 AM EDT eCW1 ([facility]) Immunizations Vaccine Date Status Description Data Source(s) COVID-19 VACC, MRNA(PFIZER)/PF 08/14/2021 12:00:00 AM EST completed [facility] influenza, recombinant, quadrIvalent,injectable, prese rvative free 07/04/2021 04:16:00 PM EDT completed eCW1 ([facility]) influenza, recombinant, quadrIvalent,injectable, prese rvative free 07/04/2021 04:16:00 PM EDT completed eCW1 ([facility]) influenza, recombinant, quadrIvalent,injectable, prese rvative free 07/04/2021 04:16:00 PM EDT completed eCW1 ([facility]) influenza, recombinant, quadrIvalent,injectable, prese rvative free 07/04/2021 04:16:00 PM EDT completed eCW1 ([facility]) influenza, recombinant, quadrIvalent,injectable, prese rvative free 07/04/2021 04:16:00 PM EDT completed eCW1 ([facility]) influenza, recombinant, quadrIvalent,injectable, prese rvative free 07/04/2021 04:16:00 PM EDT completed eCW1 ([facility]) influenza, recombinant, quadrIvalent,injectable, prese rvative free 07/04/2021 04:16:00 PM EDT completed eCW1 ([facility]) influenza, recombinant, quadrIvalent,injectable, prese rvative free 07/04/2021 04:16:00 PM EDT completed eCW1 ([facility]) influenza, recombinant, quadrIvalent,injectable, prese rvative free 07/04/2021 04:16:00 PM EDT completed eCW1 ([facility]) influenza, recombinant, quadrIvalent,injectable, prese rvative free 07/04/2021 04:16:00 PM EDT completed eCW1 ([facility]) influenza, recombinant, quadrIvalent,injectable, prese rvative free 07/04/2021 04:16:00 PM EDT completed eCW1 ([facility]) influenza, recombinant, quadrIvalent,injectable, prese rvative free 07/04/2021 04:16:00 PM EDT completed eCW1 ([facility]) COVID-19 VACCINE Pfizer 12/15/2020 12:00:00 AM EDT completed [employer] Vaccine Series Complete: YESThis Data wa s Submitted to [facility] Via [employer]. COVID-19 dose #1 given elsewhere Unspecified 11/24/2020 05:4 1:00 PM EST completed eCW1 ([facility]) COVID-19 dose #1 given elsewhere Unspecified 11/24/2020 05:4 1:00 PM EST completed eCW1 ([facility]) COVID-19 dose #1 given elsewhere Unspecified 11/24/2020 05:4 1:00 PM EST completed eCW1 ([facility]) COVID-19 dose #1 given elsewhere Unspecified 11/24/2020 05:4 1:00 PM EST completed eCW1 ([facility]) COVID-19 dose #1 given elsewhere Unspecified 11/24/2020 05:4 1:00 PM EST completed eCW1 ([facility]) COVID-19 dose #1 given elsewhere Unspecified 11/24/2020 05:4 1:00 PM EST completed eCW1 ([facility]) COVID-19 dose #1 given elsewhere Unspecified 11/24/2020 05:4 1:00 PM EST completed eCW1 ([facility]) COVID-19 dose #1 given elsewhere Unspecified 11/24/2020 05:4 1:00 PM EST completed eCW1 ([facility]) COVID-19 dose #1 given elsewhere Unspecified 11/24/2020 05:4 1:00 PM EST completed eCW1 ([facility]) COVID-19 dose #1 given elsewhere Unspecified 11/24/2020 05:4 1:00 PM EST completed eCW1 ([facility]) COVID-19 dose #1 given elsewhere Unspecified 11/24/2020 05:4 1:00 PM EST completed eCW1 ([facility]) COVID-19 dose #1 given elsewhere Unspecified 11/24/2020 05:4 1:00 PM EST completed eCW1 ([facility]) COVID-19 dose #1 given elsewhere Unspecified 11/24/2020 05:4 1:00 PM EST completed eCW1 ([facility]) COVID-19 dose #1 given elsewhere Unspecified 11/24/2020 05:4 1:00 PM EST completed eCW1 ([facility]) COVID-19 dose #1 given elsewhere Unspecified 11/24/2020 05:4 1:00 PM EST completed eCW1 ([facility]) COVID-19 dose #1 given elsewhere Unspecified 11/24/2020 05:4 1:00 PM EST completed eCW1 ([facility]) COVID-19 dose #1 given elsewhere Unspecified 11/24/2020 05:4 1:00 PM EST completed eCW1 ([facility]) COVID-19 dose #1 given elsewhere Unspecified 11/24/2020 05:4 1:00 PM EST completed eCW1 ([facility]) COVID-19 dose #1 given elsewhere Unspecified 11/24/2020 05:4 1:00 PM EST completed eCW1 ([facility]) COVID-19 dose #1 given elsewhere Unspecified 11/24/2020 05:4 1:00 PM EST completed eCW1 ([facility]) COVID-19 dose #1 given elsewhere Unspecified 11/24/2020 05:4 1:00 PM EST completed eCW1 ([facility]) COVID-19 dose #1 given elsewhere Unspecified 11/24/2020 05:4 1:00 PM EST completed eCW1 ([facility]) COVID-19 dose #1 given elsewhere Unspecified 11/24/2020 05:4 1:00 PM EST completed eCW1 ([facility]) COVID-19 dose #1 given elsewhere Unspecified 11/24/2020 05:4 1:00 PM EST completed eCW1 ([facility]) COVID-19 dose #1 given elsewhere Unspecified 11/24/2020 05:4 1:00 PM EST completed eCW1 ([facility]) COVID-19 dose #1 given elsewhere Unspecified 11/24/2020 05:4 1:00 PM EST completed eCW1 ([facility]) COVID-19 dose #1 given elsewhere Unspecified 11/24/2020 05:4 1:00 PM EST completed eCW1 ([facility]) COVID-19 dose #1 given elsewhere Unspecified 11/24/2020 05:4 1:00 PM EST completed eCW1 ([facility]) COVID-19 dose #1 given elsewhere Unspecified 11/24/2020 05:4 1:00 PM EST completed eCW1 ([facility]) COVID-19 dose #1 given elsewhere Unspecified 11/24/2020 05:4 1:00 PM EST completed eCW1 ([facility]) COVID-19 dose #1 given elsewhere Unspecified 11/24/2020 05:4 1:00 PM EST completed eCW1 ([facility]) COVID-19 dose #1 given elsewhere Unspecified 11/24/2020 05:4 1:00 PM EST completed eCW1 ([facility]) COVID-19 dose #1 given elsewhere Unspecified 11/24/2020 05:4 1:00 PM EST completed eCW1 ([facility]) COVID-19 dose #1 given elsewhere Unspecified 11/24/2020 05:4 1:00 PM EST completed eCW1 ([facility]) COVID-19 dose #1 given elsewhere Unspecified 11/24/2020 05:4 1:00 PM EST completed eCW1 ([facility]) COVID-19 dose #1 given elsewhere Unspecified 11/24/2020 05:4 1:00 PM EST completed eCW1 ([facility]) COVID-19 dose #1 given elsewhere Unspecified 11/24/2020 05:4 1:00 PM EST completed eCW1 ([facility]) COVID-19 dose #1 given elsewhere Unspecified 11/24/2020 05:4 1:00 PM EST completed eCW1 ([facility]) COVID-19 dose #1 given elsewhere Unspecified 11/24/2020 05:4 1:00 PM EST completed eCW1 ([facility]) COVID-19 dose #1 given elsewhere Unspecified 11/24/2020 05:4 1:00 PM EST completed [facility] [facility] dose #1 given elsewhere Unspecified 11/24/2020 05:4 1:00 PM EST completed eCW1 ([facility]) COVID-19 dose #1 given elsewhere Unspecified 11/24/2020 05:4 1:00 PM EST completed eCW1 ([facility]) COVID-19 dose #1 given elsewhere Unspecified 11/24/2020 05:4 1:00 PM EST completed eCW1 ([facility]) COVID-19 VACCINE Pfizer 11/24/2020 12:00:00 AM EST completed [facility] Vaccine Series Complete: NOThis Data was Submitted to [facility] Via [employer]. influenza, recombinant, quadrIvalent,injectable, prese rvative free 07/11/2020 05:24:00 PM EDT completed eCW1 ([facility]) influenza, recombinant, quadrIvalent,injectable, prese rvative free 07/11/2020 05:24:00 PM EDT completed eCW1 ([facility]) influenza, recombinant, quadrIvalent,injectable, prese rvative free 07/11/2020 05:24:00 PM EDT completed eCW1 ([facility]) influenza, recombinant, quadrIvalent,injectable, prese rvative free 07/11/2020 05:24:00 PM EDT completed eCW1 ([facility]) influenza, recombinant, quadrIvalent,injectable, prese rvative free 07/11/2020 05:24:00 PM EDT completed eCW1 ([facility]) influenza, recombinant, quadrIvalent,injectable, prese rvative free 07/11/2020 05:24:00 PM EDT completed eCW1 ([facility]) influenza, recombinant, quadrIvalent,injectable, prese rvative free 07/11/2020 05:24:00 PM EDT completed eCW1 ([facility]) influenza, recombinant, quadrIvalent,injectable, prese rvative free 07/11/2020 05:24:00 PM EDT completed eCW1 ([facility]) influenza, recombinant, quadrIvalent,injectable, prese rvative free 07/11/2020 05:24:00 PM EDT completed eCW1 ([facility]) influenza, recombinant, quadrIvalent,injectable, prese rvative free 07/11/2020 05:24:00 PM EDT completed eCW1 ([facility]) influenza, recombinant, quadrIvalent,injectable, prese rvative free 07/11/2020 05:24:00 PM EDT completed eCW1 ([facility]) influenza, recombinant, quadrIvalent,injectable, prese rvative free 07/11/2020 05:24:00 PM EDT completed eCW1 ([facility]) influenza, recombinant, quadrIvalent,injectable, prese rvative free 07/11/2020 05:24:00 PM EDT completed eCW1 ([facility]) influenza, recombinant, quadrIvalent,injectable, prese rvative free 07/11/2020 05:24:00 PM EDT completed eCW1 ([facility]) influenza, recombinant, quadrIvalent,injectable, prese rvative free 07/11/2020 05:24:00 PM EDT completed eCW1 ([facility]) influenza, recombinant, quadrIvalent,injectable, prese rvative free 07/11/2020 05:24:00 PM EDT completed eCW1 ([facility]) influenza, recombinant, quadrIvalent,injectable, prese rvative free 07/11/2020 05:24:00 PM EDT completed eCW1 ([facility]) influenza, recombinant, quadrIvalent,injectable, prese rvative free 07/11/2020 05:24:00 PM EDT completed eCW1 ([facility]) influenza, recombinant, quadrIvalent,injectable, prese rvative free 07/11/2020 05:24:00 PM EDT completed eCW1 ([facility]) influenza, recombinant, quadrIvalent,injectable, prese rvative free 07/11/2020 05:24:00 PM EDT completed eCW1 ([facility]) influenza, recombinant, quadrIvalent,injectable, prese rvative free 07/11/2020 05:24:00 PM EDT completed eCW1 ([facility]) influenza, recombinant, quadrIvalent,injectable, prese rvative free 07/11/2020 05:24:00 PM EDT completed eCW1 ([facility]) influenza, recombinant, quadrIvalent,injectable, prese rvative free 07/11/2020 05:24:00 PM EDT completed eCW1 ([facility]) influenza, recombinant, quadrIvalent,injectable, prese rvative free 07/11/2020 05:24:00 PM EDT completed eCW1 ([facility]) influenza, recombinant, quadrIvalent,injectable, prese rvative free 07/11/2020 05:24:00 PM EDT completed eCW1 ([facility]) influenza, recombinant, quadrIvalent,injectable, prese rvative free 07/11/2020 05:24:00 PM EDT completed eCW1 ([facility]) influenza, recombinant, quadrIvalent,injectable, prese rvative free 07/11/2020 05:24:00 PM EDT completed eCW1 ([facility]) influenza, recombinant, quadrIvalent,injectable, prese rvative free 07/11/2020 05:24:00 PM EDT completed eCW1 ([facility]) influenza, recombinant, quadrIvalent,injectable, prese rvative free 07/11/2020 05:24:00 PM EDT completed eCW1 ([facility]) influenza, recombinant, quadrIvalent,injectable, prese rvative free 07/11/2020 05:24:00 PM EDT completed eCW1 ([facility]) influenza, recombinant, quadrIvalent,injectable, prese rvative free 07/11/2020 05:24:00 PM EDT completed eCW1 ([facility]) influenza, recombinant, quadrIvalent,injectable, prese rvative free 07/11/2020 05:24:00 PM EDT completed eCW1 ([facility]) influenza, recombinant, quadrIvalent,injectable, prese rvative free 07/11/2020 05:24:00 PM EDT completed eCW1 ([facility]) influenza, recombinant, quadrIvalent,injectable, prese rvative free 07/11/2020 05:24:00 PM EDT completed eCW1 ([facility]) influenza, recombinant, quadrIvalent,injectable, prese rvative free 07/11/2020 05:24:00 PM EDT completed eCW1 ([facility]) influenza, recombinant, quadrIvalent,injectable, prese rvative free 07/11/2020 05:24:00 PM EDT completed eCW1 ([facility]) influenza, recombinant, quadrIvalent,injectable, prese rvative free 07/11/2020 05:24:00 PM EDT completed eCW1 ([facility]) influenza, recombinant, quadrIvalent,injectable, prese rvative free 07/11/2020 05:24:00 PM EDT completed eCW1 ([facility]) influenza, recombinant, quadrIvalent,injectable, prese rvative free 07/11/2020 05:24:00 PM EDT completed eCW1 ([facility]) influenza, recombinant, quadrIvalent,injectable, prese rvative free 07/11/2020 05:24:00 PM EDT completed eCW1 ([facility]) influenza, recombinant, quadrIvalent,injectable, prese rvative free 07/11/2020 05:24:00 PM EDT completed eCW1 ([facility]) influenza, recombinant, quadrIvalent,injectable, prese rvative free 07/11/2020 05:24:00 PM EDT completed eCW1 ([facility]) influenza, recombinant, quadrIvalent,injectable, prese rvative free 07/11/2020 05:24:00 PM EDT completed eCW1 ([facility]) influenza, recombinant, quadrIvalent,injectable, prese rvative free 07/11/2020 05:24:00 PM EDT completed eCW1 ([facility]) influenza, recombinant, quadrIvalent,injectable, prese rvative free 07/11/2020 05:24:00 PM EDT completed eCW1 ([facility]) influenza, recombinant, quadrIvalent,injectable, prese rvative free 07/11/2020 05:24:00 PM EDT completed eCW1 ([facility]) influenza, recombinant, quadrIvalent,injectable, prese rvative free 07/11/2020 05:24:00 PM EDT completed eCW1 ([facility]) influenza, recombinant, quadrIvalent,injectable, prese rvative free 07/11/2020 05:24:00 PM EDT completed eCW1 ([facility]) influenza, recombinant, quadrIvalent,injectable, prese rvative free 07/11/2020 05:24:00 PM EDT completed eCW1 ([facility]) influenza, recombinant, quadrIvalent,injectable, prese rvative free 07/11/2020 05:24:00 PM EDT completed eCW1 ([facility]) influenza, recombinant, quadrIvalent,injectable, prese rvative free 07/11/2020 05:24:00 PM EDT completed eCW1 ([facility]) influenza, recombinant, quadrIvalent,injectable, prese rvative free 07/11/2020 05:24:00 PM EDT completed eCW1 ([facility]) influenza, recombinant, quadrIvalent,injectable, prese rvative free 07/11/2020 05:24:00 PM EDT completed eCW1 ([facility]) influenza, recombinant, quadrIvalent,injectable, prese rvative free 07/11/2020 05:24:00 PM EDT completed eCW1 ([facility]) influenza, recombinant, quadrIvalent,injectable, prese rvative free 07/11/2020 05:24:00 PM EDT completed eCW1 ([facility]) influenza, recombinant, quadrIvalent,injectable, prese rvative free 07/11/2020 05:24:00 PM EDT completed eCW1 ([facility]) influenza, recombinant, quadrIvalent,injectable, prese rvative free 07/11/2020 05:24:00 PM EDT completed eCW1 ([facility]) influenza, recombinant, quadrIvalent,injectable, prese rvative free 07/11/2020 05:24:00 PM EDT completed eCW1 ([facility]) influenza, recombinant, quadrIvalent,injectable, prese rvative free 07/11/2020 05:24:00 PM EDT completed eCW1 ([facility]) influenza, recombinant, quadrIvalent,injectable, prese rvative free 07/11/2020 05:24:00 PM EDT completed eCW1 ([facility]) influenza, recombinant, quadrIvalent,injectable, prese rvative free 07/11/2020 05:24:00 PM EDT completed eCW1 ([facility]) influenza, recombinant, quadrIvalent,injectable, prese rvative free 07/11/2020 05:24:00 PM EDT completed eCW1 ([facility]) Medications Medication Brand Name Start Date Product Form Dose Route Admi nistrative Instructions Pharmacy Instructions Status Indications Reaction Description Data Source(s) Oxycodone Hydrochloride 10 MG Oral Tablet oxyCODONE HC l 10 MG oxyCODONE HCl 10 MG 08/15/2021 12:00:00 AM EST 1.0 {tablet_as_needed} active oxyCODONE HCl 10 MG eCW1 ([facility], 1928[facility]1983) 81 mg 08/08/2021 12:00:00 AM EST tablet,chewable [...] TWO TABLETS SOLD: 07/15/2021 [facility] 600 mg 07/05/2021 12:00:00 AM EDT tablet 90 TAKE ONE TABLET BY MOUTH THREE TIMES A DAY TAKE ONE TABLET BY MOUTH THREE TIMES A DAY SOLD: 08/02/2021 [facility] 600 mg 07/05/2021 12:00:00 AM EDT tablet 90 TAKE ONE TABLET BY MOUTH THREE TIMES A DAY TAKE ONE TABLET BY MOUTH THREE TIMES A DAY SOLD: 07/06/2021 [facility] 18-400 mg-mcg 07/05/2021 12:00:00 AM EDT tablet 25 TAKE ONE TABLET BY MOUTH EVERY DAY TAKE ONE TABLET BY MOUTH EVERY DAY SOLD: 07/08/2021 [facility] 18-400 mg-mcg 07/05/2021 12:00:00 AM EDT tablet 30 TAKE ONE TABLET BY MOUTH EVERY DAY TAKE ONE TABLET BY MOUTH EVERY DAY SOLD: 08/03/2021 [facility] NITROFURANTOIN, MACROCRYSTALS 25 MG / Ni trofurantoin, Monohydrate 75 MG Oral Capsule 100 mg NITROFURANTOIN MONOHYD/M-CRYST 07/04/2021 12:00:00 AM EDT ca psule 20 TAKE ONE CAPSULE BY MOUTH TWICE A DAY WITH FOOD TAKE ONE CAPSULE BY MOUTH TWICE A DAY WITH FOOD SOLD: 07/04/2021 [facility] NITROFURANTOIN, MACROCRYSTALS 25 MG / Ni trofurantoin, Monohydrate 75 MG Oral Capsule [Macrobid] Macrobid 100 MG Macrobid 100 MG 07/04/2021 12:00:00 AM EDT 1.0 {capsule_with_food} active Macrobid 100 MG eCW1 ([facility], 1928–1983) NITROFURANTOIN, MACROCRYSTALS 25 MG / Ni trofurantoin, Monohydrate 75 MG Oral Capsule [Macrobid] Macrobid 100 MG Macrobid 100 MG 07/04/2021 12:00:00 AM EDT 1.0 {capsule_with_food} active Macrobid 100 MG eCW1 ([facility], 1928–1983) NITROFURANTOIN, MACROCRYSTALS 25 MG / Ni trofurantoin, Monohydrate 75 MG Oral Capsule [Macrobid] Macrobid 100 MG Macrobid 100 MG 07/04/2021 12:00:00 AM EDT 1.0 {capsule_with_food} active Macrobid 100 MG eCW1 ([facility], 1928–1983) NITROFURANTOIN, MACROCRYSTALS 25 MG / Ni trofurantoin, Monohydrate 75 MG Oral Capsule [Macrobid] Macrobid 100 MG Macrobid 100 MG 07/04/2021 12:00:00 AM EDT 1.0 {capsule_with_food} active Macrobid 100 MG eCW1 ([facility], 1928–1983) NITROFURANTOIN, MACROCRYSTALS 25 MG / Ni trofurantoin, Monohydrate 75 MG Oral Capsule [Macrobid] Macrobid 100 MG Macrobid 100 MG 07/04/2021 12:00:00 AM EDT 1.0 {capsule_with_food} active Macrobid 100 MG eCW1 ([facility], [facility]–1983) NITROFURANTOIN, MACROCRYSTALS 25 MG / Ni trofurantoin, Monohydrate 75 MG Oral Capsule [Macrobid] Macrobid 100 MG Macrobid 100 MG 07/04/2021 12:00:00 AM EDT 1.0 {capsule_with_food} active Macrobid 100 MG eCW1 ([facility], [facility]–1983) NITROFURANTOIN, MACROCRYSTALS 25 MG / Ni trofurantoin, Monohydrate 75 MG Oral Capsule [Macrobid] Macrobid 100 MG Macrobid 100 MG 07/04/2021 12:00:00 AM EDT 1.0 {capsule_with_food} active Macrobid 100 MG eCW1 ([facility], [facility]–1983) NITROFURANTOIN, MACROCRYSTALS 25 MG / Ni trofurantoin, Monohydrate 75 MG Oral Capsule [Macrobid] Macrobid 100 MG Macrobid 100 MG 07/04/2021 12:00:00 AM EDT 1.0 {capsule_with_food} active Macrobid 100 MG eCW1 ([facility], [facility]–1983) NITROFURANTOIN, MACROCRYSTALS 25 MG / Ni trofurantoin, Monohydrate 75 MG Oral Capsule [Macrobid] Macrobid 100 MG Macrobid 100 MG 07/04/2021 12:00:00 AM EDT 1.0 {capsule_with_food} active Macrobid 100 MG eCW1 ([facility], [facility]–1983) NITROFURANTOIN, MACROCRYSTALS 25 MG / Ni trofurantoin, Monohydrate 75 MG Oral Capsule [Macrobid] Macrobid 100 MG Macrobid 100 MG 07/04/2021 12:00:00 AM EDT 1.0 {capsule_with_food} active Macrobid 100 MG eCW1 ([facility], [facility]–1983) NITROFURANTOIN, MACROCRYSTALS 25 MG / Ni trofurantoin, Monohydrate 75 MG Oral Capsule [Macrobid] Macrobid 100 MG Macrobid 100 MG 07/04/2021 12:00:00 AM EDT 1.0 {capsule_with_food} active Macrobid 100 MG eCW1 ([facility], [facility]–1983) NITROFURANTOIN, MACROCRYSTALS 25 MG / Ni trofurantoin, Monohydrate 75 MG Oral Capsule [Macrobid] Macrobid 100 MG Macrobid 100 MG 07/04/2021 12:00:00 AM EDT 1.0 {capsule_with_food} active Macrobid 100 MG eCW1 ([facility], [facility]) 10 mg 06/28/2021 12:00:00 AM EDT tablet 30 TAKE ONE TABLET BY MOUTH EVERY DAY TAKE ONE TABLET BY MOUTH EVERY DAY SOLD: 06/28/2021 [facility] Rosuvastatin calcium 10 MG Oral Tablet ROSUVASTATIN CALCIUM 06/28/2021 12:00:00 AM EDT tablet 30 TAKE ONE TABLET BY MOUTH ADRIANA RY DAY TAKE ONE TABLET BY MOUTH EVERY DAY SOLD: 07/26/2021 [facility] Oxycodone Hydrochloride 10 MG Oral Tablet oxyCODONE HC l 10 MG oxyCODONE HCl 10 MG 06/22/2021 12:00:00 AM EDT 1.0 {tablet_as_needed} active oxyCODONE HCl 10 MG eCW1 ([facility], [facility]–1983) Oxycodone Hydrochloride 10 MG Oral Tablet oxyCODONE HC l 10 MG oxyCODONE HCl 10 MG 06/22/2021 12:00:00 AM EDT 1.0 {tablet_as_needed} active oxyCODONE HCl 10 MG eCW1 ([facility], [facility]–1983) Oxycodone Hydrochloride 10 MG Oral Tablet oxyCODONE HC l 10 MG oxyCODONE HCl 10 MG 06/22/2021 12:00:00 AM EDT 1.0 {tablet_as_needed} active oxyCODONE HCl 10 MG eCW1 ([facility], [facility]–1983) Oxycodone Hydrochloride 10 MG Oral Tablet oxyCODONE HC l 10 MG oxyCODONE HCl 10 MG 06/22/2021 12:00:00 AM EDT 1.0 {tablet_as_needed} active oxyCODONE HCl 10 MG eCW1 ([facility], [facility]–1983) Oxycodone Hydrochloride 10 MG Oral Tablet oxyCODONE HC l 10 MG oxyCODONE HCl 10 MG 06/22/2021 12:00:00 AM EDT 1.0 {tablet_as_needed} active oxyCODONE HCl 10 MG eCW1 ([facility], [facility]–1983) Oxycodone Hydrochloride 10 MG Oral Tablet oxyCODONE HC l 10 MG oxyCODONE HCl 10 MG 06/22/2021 12:00:00 AM EDT 1.0 {tablet_as_needed} active oxyCODONE HCl 10 MG eCW1 ([facility], [facility]–1983) Oxycodone Hydrochloride 10 MG Oral Tablet oxyCODONE HC l 10 MG oxyCODONE HCl 10 MG 06/22/2021 12:00:00 AM EDT 1.0 {tablet_as_needed} active oxyCODONE HCl 10 MG eCW1 ([facility], [facility]–1983) Oxycodone Hydrochloride 10 MG Oral Tablet oxyCODONE HC l 10 MG oxyCODONE HCl 10 MG 06/22/2021 12:00:00 AM EDT 1.0 {tablet_as_needed} active oxyCODONE HCl 10 MG eCW1 ([facility], [facility]–1983) Oxycodone Hydrochloride 10 MG Oral Tablet oxyCODONE HC l 10 MG oxyCODONE HCl 10 MG 06/22/2021 12:00:00 AM EDT 1.0 {tablet_as_needed} active oxyCODONE HCl 10 MG eCW1 ([facility], [facility]–1983) Oxycodone Hydrochloride 10 MG Oral Tablet oxyCODONE HC l 10 MG oxyCODONE HCl 10 MG 06/22/2021 12:00:00 AM EDT 1.0 {tablet_as_needed} active oxyCODONE HCl 10 MG eCW1 ([facility], [facility]1983) Oxycodone Hydrochloride 10 MG Oral Tablet oxyCODONE HC l 10 MG oxyCODONE HCl 10 MG 06/22/2021 12:00:00 AM EDT 1.0 {tablet_as_needed} active oxyCODONE HCl 10 MG eCW1 ([facility], [facility]–1983) Oxycodone Hydrochloride 10 MG Oral Tablet oxyCODONE HC l 10 MG oxyCODONE HCl 10 MG 06/22/2021 12:00:00 AM EDT 1.0 {tablet_as_needed} active oxyCODONE HCl 10 MG eCW1 ([facility], [facility]) Oxycodone Hydrochloride 10 MG Oral Tablet oxyCODONE HC l 10 MG oxyCODONE HCl 10 MG 06/22/2021 12:00:00 AM EDT 1.0 {tablet_as_needed} active oxyCODONE HCl 10 MG eCW1 ([facility], [facility]–1983) Oxycodone Hydrochloride 10 MG Oral Tablet oxyCODONE HC l 10 MG oxyCODONE HCl 10 MG 06/22/2021 12:00:00 AM EDT 1.0 {tablet_as_needed} active oxyCODONE HCl 10 MG eCW1 ([facility], [facility]) Paroxetine Hydrochloride 40 MG Oral Tablet PAROXETINE [...] DAILY DOSE OF 2 TABLETS SOLD: 06/18/2021 [facility] Oxycodone Hydrochloride 10 MG Oral Tablet oxyCODONE HC l 10 MG oxyCODONE HCl 10 MG 06/15/2021 12:00:00 AM EDT 1.0 {tablet_as_needed} active oxyCODONE HCl 10 MG eCW1 ([facility], [facility]) Oxycodone Hydrochloride 10 MG Oral Tablet oxyCODONE HC l 10 MG oxyCODONE HCl 10 MG 06/15/2021 12:00:00 AM EDT 1.0 {tablet_as_needed} active oxyCODONE HCl 10 MG eCW1 ([facility], [facility]–1983) Oxycodone Hydrochloride 10 MG Oral Tablet oxyCODONE HC l 10 MG oxyCODONE HCl 10 MG 06/15/2021 12:00:00 AM EDT 1.0 {tablet_as_needed} active oxyCODONE HCl 10 MG eCW1 ([facility], [facility]) 10 mg 05/22/2021 12:00:00 AM EDT tablet 60 1 TABLET NEEDED BY MOUTH EVERY 12 HOURS IN THE EVENING PAIN MAXIMUM DAILY DOSE = 2 1 TABLET NEEDED BY MOUTH EVERY 12 HOURS IN THE EVENING PAIN MAXIMUM DAILY DOSE = 2 SOLD: 05/23/2021 [facility] Oxycodone Hydrochloride 10 MG Oral Tablet oxyCODONE HC l 10 MG oxyCODONE HCl 10 MG 05/21/2021 12:00:00 AM EDT 1.0 {tablet_as_needed} active oxyCODONE HCl 10 MG eCW1 ([facility], [facility]) Oxycodone Hydrochloride 10 MG Oral Tablet oxyCODONE HC l 10 MG oxyCODONE HCl 10 MG 05/21/2021 12:00:00 AM EDT 1.0 {tablet_as_needed} active oxyCODONE HCl 10 MG eCW1 ([facility], [facility]–1983) Oxycodone Hydrochloride 10 MG Oral Tablet oxyCODONE HC l 10 MG oxyCODONE HCl 10 MG 05/21/2021 12:00:00 AM EDT 1.0 {tablet_as_needed} active oxyCODONE HCl 10 MG eCW1 ([facility], [facility]–1983) Oxycodone Hydrochloride 10 MG Oral Tablet oxyCODONE HC l 10 MG oxyCODONE HCl 10 MG 05/21/2021 12:00:00 AM EDT 1.0 {tablet_as_needed} suspended oxyCODONE HCl 10 MG eCW1 ([facility], [facility]–1983) Oxycodone Hydrochloride 10 MG Oral Tablet oxyCODONE HC l 10 MG oxyCODONE HCl 10 MG 05/21/2021 12:00:00 AM EDT 1.0 {tablet_as_needed} suspended oxyCODONE HCl 10 MG eCW1 ([facility], [facility]–1983) Oxycodone Hydrochloride 10 MG Oral Tablet oxyCODONE HC l 10 MG oxyCODONE HCl 10 MG 05/21/2021 12:00:00 AM EDT 1.0 {tablet_as_needed} active oxyCODONE HCl 10 MG eCW1 ([facility], [facility]1983) Oxycodone Hydrochloride 10 MG Oral Tablet oxyCODONE HC l 10 MG oxyCODONE HCl 10 MG 05/21/2021 12:00:00 AM EDT 1.0 {tablet_as_needed} suspended oxyCODONE HCl 10 MG eCW1 ([facility], [facility]–1983) Oxycodone Hydrochloride 10 MG Oral Tablet oxyCODONE HC l 10 MG oxyCODONE HCl 10 MG 05/21/2021 12:00:00 AM EDT 1.0 {tablet_as_needed} active oxyCODONE HCl 10 MG eCW1 ([facility], [facility]–1983) Oxycodone Hydrochloride 10 MG Oral Tablet oxyCODONE HC l 10 MG oxyCODONE HCl 10 MG 05/21/2021 12:00:00 AM EDT 1.0 {tablet_as_needed} active oxyCODONE HCl 10 MG eCW1 (Former[facility], [facility]) LANOLIN ALCOHOL/MO/W.PET/CERES 05/12/2021 12:00:00 AM EDT cr [...] TABLET BY MOUTH ONCE DAILY SOLD: 04/27/2021 [facility] 2.5 mg 04/26/2021 12:00:00 AM EDT tablet 90 TAKE ONE TABLET BY MOUTH EVERY MORNING TAKE ONE TABLET BY MOUTH EVERY MORNING SOLD: 07/23/2021 [facility] 2.5 mg 04/26/2021 12:00:00 AM EDT tablet 90 TAKE ONE TABLET BY MOUTH EVERY MORNING TAKE ONE TABLET BY MOUTH EVERY MORNING SOLD: 04/26/2021 [facility] 10 mg 04/17/2021 12:00:00 AM EDT [...] MOUTH THREE TIMES A DAY SOLD: 04/17/2021 [facility] 200 mg 04/16/2021 12:00:00 AM EDT tablet 180 TAKE TWO TABLETS BY MOUTH EVERY DAY TAKE TWO TABLETS BY MOUTH EVERY DAY SOLD: 04/16/2021 [facility] 200 mg 04/16/2021 12:00:00 AM EDT tablet 60 TAKE TWO TABLETS BY MOUTH EVERY DAY TAKE TWO TABLETS BY MOUTH EVERY DAY SOLD: 07/19/2021 [facility] pantoprazole 40 MG Delayed Release Oral Tablet PANTOPRAZOLE SODIUM 04/14/2021 12:00:00 AM EDT tablet,delayed release (DR/EC) 30 T MAG ONE TABLET BY MOUTH EVERY DAY TAKE ONE TABLET BY MOUTH EVERY DAY SOLD: 04/15/2021 [facility] pantoprazole 40 MG Delayed Release Oral Tablet PANTOPRAZOLE SODIUM 04/14/2021 12:00:00 AM EDT tablet,delayed release (DR/EC) 30 T MAG ONE TABLET BY MOUTH EVERY DAY TAKE ONE TABLET BY MOUTH EVERY DAY SOLD: 06/03/2021 [facility] pantoprazole 40 MG Delayed Release Oral Tablet PANTOPRAZOLE SODIUM 04/14/2021 12:00:00 AM EDT tablet,delayed release (DR/EC) 30 T MAG ONE TABLET BY MOUTH EVERY DAY TAKE ONE TABLET BY MOUTH EVERY DAY SOLD: 07/23/2021 [facility] Oxycodone Hydrochloride 10 MG Oral Tablet oxyCODONE HC l 10 MG oxyCODONE HCl 10 MG 04/13/2021 12:00:00 AM EDT 1.0 {tablet_as_needed} active oxyCODONE HCl 10 MG eCW1 (Formerly [facility], [facility]–1983) Oxycodone Hydrochloride 10 MG Oral Tablet oxyCODONE HC l 10 MG oxyCODONE HCl 10 MG 04/13/2021 12:00:00 AM EDT 1.0 {tablet_as_needed} active oxyCODONE HCl 10 MG eCW1 (Formerly [facility], [facility]–1983) Oxycodone Hydrochloride 10 MG Oral Tablet oxyCODONE HC l 10 MG oxyCODONE HCl 10 MG 04/13/2021 12:00:00 AM EDT 1.0 {tablet_as_needed} active oxyCODONE HCl 10 MG eCW1 (Former[facility], [facility]–1983) Oxycodone Hydrochloride 10 MG Oral Tablet oxyCODONE HC l 10 MG oxyCODONE HCl 10 MG 04/13/2021 12:00:00 AM EDT 1.0 {tablet_as_needed} active oxyCODONE HCl 10 MG eCW1 ([facility], [facility]) 500 mg 04/13/2021 12:00:00 AM EDT tablet 60 TAKE ONE TABLET BY MOUTH TWICE A DAY AT 8AM AND 6PM TAKE ONE TABLET BY MOUTH TWICE A DAY AT 8AM AND 6PM SO LD: 04/13/2021 [facility] 300 mg 04/13/2021 12:00:00 AM EDT capsule 14 TAKE ONE CAPSULE BY MOUTH TWICE A DAY TAKE ONE CAPSULE BY MOUTH TWICE A DAY SOLD: 04/13/2021 [facility] 325 mg (65 mg [...] TIMES A DAY SOLD: 04/15/2021 [facility] 25 mg 04/11/2021 12:00:00 AM EDT tablet 90 TAKE ONE TABLET BY MOUTH EVERY MORNING TAKE ONE TABLET BY MOUTH EVERY MORNING SOLD: 04/12/2021 [facility] 81 mg 04/11/2021 [...] MOUTH EVERY DAY SOLD: 05/10/2021 [facility] 325 mg 04/10/2021 12:00:00 AM EDT tablet 120 TAKE ONE TO TWO TABLETS BY MOUTH EVERY 4 HOURS NEEDED TAKE ONE TO TWO TABLETS BY MOUTH EVERY 4 HOURS NEEDED SOLD: 05/08/2021 [facility] 120 ACTUAT Albuterol 0.1 MG/ACTUAT / Ipr atropium [place] 0.02 MG/ACTUAT Metered Dose Inhaler [Combivent] 20-100 [...] ACTUAT Albuterol 0.1 MG/ACTUAT / Ipr atropium [place] 0.02 MG/ACTUAT Metered Dose Inhaler [Combivent] 20-100 mcg/actuation IPRATROPIUM/ALBUTEROL SULFATE 04/10/2021 12:00:00 AM EDT mist 4 INHAL E ONE PUFF BY MOUTH FOUR TIMES A DAY NEEDED INHALE ONE PUFF BY MOUTH FOUR TIMES A DAY NEEDED SOLD: 2020 [facility] 120 ACTUAT Albuterol 0.1 MG/ACTUAT / Ipr atropium [place] 0.02 MG/ACTUAT Metered Dose Inhaler [Combivent] 20-100 mcg/actuation IPRATROPIUM/ALBUTEROL SULFATE 04/10/2021 12:00:00 AM EDT mist 4 INHAL E ONE PUFF BY MOUTH FOUR TIMES A DAY NEEDED INHALE ONE PUFF BY MOUTH FOUR TIMES A DAY NEEDED SOLD: 2020 [facility] Rosuvastatin calcium 10 MG Oral Tablet ROSUVASTATIN CALCIUM 03/28/2021 12:00:00 AM EDT tablet 30 TAKE ONE TABLET BY MOUTH ADRIANA DAY TAKE ONE TABLET BY MOUTH EVERY DAY SOLD: 03/28/2021 [facility] 18-400 mg-mcg 03/28/2021 12:00:00 AM EDT tablet 30 TAKE ONE TABLET BY MOUTH EVERY DAY TAKE ONE TABLET BY MOUTH EVERY DAY SOLD: 05/23/2021 [facility] 18-400 mg-mcg 03/28/2021 12:00:00 AM [...] DOSE = TWO TABLETS SOLD: 03/21/2021 [facility] Oxycodone Hydrochloride 10 MG Oral Tablet oxyCODONE HC l 10 MG oxyCODONE HCl 10 MG 03/20/2021 12:00:00 AM EDT 1.0 {tablet_as_needed} active oxyCODONE HCl 10 MG eCW1 (Formerly [facility], 1928–1983) pantoprazole 40 MG Delayed Release Oral Tablet PANTOPRAZOLE SODIUM 03/20/2021 12:00:00 AM EDT tablet,delayed release (DR/EC) 30 T MAG ONE TABLET BY MOUTH EVERY MORNING TAKE ONE TABLET BY MOUTH EVERY MORNING SOLD: 06/28/2021 [facility] Oxycodone Hydrochloride 10 MG Oral Tablet oxyCODONE HC l 10 MG oxyCODONE HCl 10 MG 03/20/2021 12:00:00 AM EDT 1.0 {tablet_as_needed} active oxyCODONE HCl 10 MG eCW1 (Formerly [facility], 1928–1983) pantoprazole 40 MG Delayed Release Oral Tablet PANTOPRAZOLE SODIUM 03/20/2021 12:00:00 AM EDT tablet,delayed release (DR/EC) 30 T MAG ONE TABLET BY MOUTH EVERY MORNING TAKE ONE TABLET BY MOUTH EVERY MORNING SOLD: 03/20/2021 [facility] pantoprazole 40 MG Delayed Release Oral Tablet PANTOPRAZOLE SODIUM 03/20/2021 12:00:00 AM EDT tablet,delayed release (DR/EC) 30 T MAG ONE TABLET BY MOUTH EVERY MORNING TAKE ONE TABLET BY MOUTH EVERY MORNING SOLD: 05/09/2021 [facility] Oxycodone Hydrochloride 10 MG Oral Tablet oxyCODONE HC l 10 MG oxyCODONE HCl 10 MG 03/20/2021 12:00:00 AM EDT 1.0 {tablet_as_needed} active oxyCODONE HCl 10 MG eCW1 (Formerly [facility], 1928–1983) 800 mg 02/21/2021 12:00:00 AM EDT tablet 270 TAKE ONE TABLET BY MOUTH THREE TIMES A DAY TAKE ONE TABLET BY MOUTH THREE TIMES A DAY SOLD: 02/21/2021 [facility] 10 mg 02/15/2021 12:00:00 AM EDT tablet 60 TAKE ONE TABLET BY MOUTH EVERY 12 HOURS NEEDED FOR PAIN MAXIMUM DAILY DOSE = TWO TABLETS TAKE ONE TABLET BY MOUTH EVERY 12 HOURS NEEDED FOR PAIN MAXIMUM DAILY DOSE = TWO TABLETS SOLD: 02/15/2021 [facility] Oxycodone Hydrochloride 10 MG Oral Tablet oxyCODONE HC l 10 MG oxyCODONE HCl 10 MG 02/14/2021 12:00:00 AM EDT 1.0 {tablet_as_needed} active oxyCODONE HCl 10 MG eCW1 (Formerly [facility], 1928–1983) Oxycodone Hydrochloride 10 MG Oral Tablet Oxycodone HC l 10 MG Oxycodone HCl 10 MG 02/14/2021 12:00:00 AM EDT 1.0 {tablet_as_needed} active Oxycodone HCl 10 MG eCW1 (Formerly [facility], 1928–1983) Oxycodone Hydrochloride 10 MG Oral Tablet oxyCODONE HC l 10 MG oxyCODONE HCl 10 MG 02/14/2021 12:00:00 AM EDT 1.0 {tablet_as_needed} active oxyCODONE HCl 10 MG eCW1 (Formerly [facility], 1928–1983) Rosuvastatin calcium 10 MG Oral Tablet ROSUVASTATIN [...] TWICE A DAY SOLD: 03/20/2021 [facility] carvedilol 6.25 MG [...] MOUTH EVERY MORNING SOLD: 03/20/2021 [facility] 25 mg 01/20/2021 [...] {tablet_as_needed} active Oxycodone HCl 10 MG eCW1 (Formerly [facility], 1928–1983) Oxycodone Hydrochloride 10 MG Oral Tablet Oxycodone HC l 10 MG Oxycodone HCl 10 MG 01/12/2021 12:00:00 AM EDT 1.0 {tablet_as_needed} active Oxycodone HCl 10 MG eCW1 (Formerly [facility], 1928–1983) Oxycodone Hydrochloride 10 MG Oral Tablet oxyCODONE HC l 10 MG oxyCODONE HCl 10 MG 01/12/2021 12:00:00 AM EDT 1.0 {tablet_as_needed} suspended oxyCODONE HCl 10 MG eCW1 (Formerly [facility], 1928–1983) Oxycodone Hydrochloride 10 MG Oral Tablet Oxycodone HC l 10 MG Oxycodone HCl 10 MG 01/12/2021 12:00:00 AM EDT 1.0 {tablet_as_needed} active Oxycodone HCl 10 MG eCW1 (Formerly [facility], 1928–1983) Oxycodone Hydrochloride 10 MG Oral Tablet oxyCODONE HC l 10 MG oxyCODONE HCl 10 MG 01/12/2021 12:00:00 AM EDT 1.0 {tablet_as_needed} active oxyCODONE HCl 10 MG eCW1 (Formerly [facility], 1928–1983) Oxycodone Hydrochloride 10 MG Oral Tablet Oxycodone HC l 10 MG Oxycodone HCl 10 MG 01/12/2021 12:00:00 AM EDT 1.0 {tablet_as_needed} active Oxycodone HCl 10 MG eCW1 (Formerly [facility], 1928–1983) Oxycodone Hydrochloride 10 MG Oral Tablet Oxycodone HC l 10 MG Oxycodone HCl 10 MG 01/12/2021 12:00:00 AM EDT 1.0 {tablet_as_needed} active Oxycodone HCl 10 MG eCW1 (Formerly [facility], 1928–1983) Oxycodone Hydrochloride 10 MG Oral Tablet oxyCODONE HC l 10 MG oxyCODONE HCl 10 MG 01/12/2021 12:00:00 AM EDT 1.0 {tablet_as_needed} suspended oxyCODONE HCl 10 MG eCW1 (Formerly [facility], 1928–1983) Oxycodone Hydrochloride 10 MG Oral Tablet oxyCODONE HC l 10 MG oxyCODONE HCl 10 MG 01/12/2021 12:00:00 AM EDT 1.0 {tablet_as_needed} suspended oxyCODONE HCl 10 MG eCW1 (Formerly [facility], 1928–1983) Oxycodone Hydrochloride 10 MG Oral Tablet Oxycodone HC l 10 MG Oxycodone HCl 10 MG 01/12/2021 12:00:00 AM EDT 1.0 {tablet_as_needed} active Oxycodone HCl 10 MG eCW1 (Formerly [facility], 1928–1983) Oxycodone Hydrochloride 10 MG Oral Tablet oxyCODONE HC l 10 MG oxyCODONE HCl 10 MG 01/12/2021 12:00:00 AM EDT 1.0 {tablet_as_needed} suspended oxyCODONE HCl 10 MG eCW1 (Formerly [facility], 1928–1983) Oxycodone Hydrochloride 10 MG Oral Tablet Oxycodone HC l 10 MG Oxycodone HCl 10 MG 01/12/2021 12:00:00 AM EDT 1.0 {tablet_as_needed} active Oxycodone HCl 10 MG eCW1 (Formerly [facility], 1928–1983) Oxycodone Hydrochloride 10 MG Oral Tablet oxyCODONE HC l 10 MG oxyCODONE HCl 10 MG 01/12/2021 12:00:00 AM EDT 1.0 {tablet_as_needed} suspended oxyCODONE HCl 10 MG eCW1 (Formerly [facility], 1928–1983) 600 mg 01/03/2021 12:00:00 AM EDT tablet [...] AM EDT active May Use - eCW1 (Formerly [facility], 1928–1983) May Use - UNK 12/26/2020 12:00:00 AM EDT active May Use - eCW1 (Formerly [facility], 1928–1983) May Use - UNK 12/26/2020 12:00:00 AM EDT active May Use - eCW1 (Formerly [facility], 1928–1983) May Use - UNK 12/26/2020 12:00:00 AM EDT active May Use - eCW1 (Formerly [facility], 1928–1983) May Use - UNK 12/26/2020 12:00:00 AM EDT active May Use - eCW1 (Formerly [facility], 1928–1983) May Use - UNK 12/26/2020 12:00:00 AM EDT active May Use - eCW1 (Formerly [facility], 1928–1983) May Use - UNK 12/26/2020 12:00:00 AM EDT active May Use - eCW1 (Formerly [facility], 1928–1983) May Use - UNK 12/26/2020 12:00:00 AM EDT active May Use - eCW1 (Formerly [facility], 1928–1983) May Use - UNK 12/26/2020 12:00:00 AM EDT active May Use - eCW1 (Formerly [facility], 1928–1983) May Use - UNK 12/26/2020 12:00:00 AM EDT active May Use - eCW1 (Formerly [facility], 1928–1983) May Use - UNK 12/26/2020 12:00:00 AM EDT active May Use - eCW1 (Formerly [facility], 1928–1983) May Use - UNK 12/26/2020 12:00:00 AM EDT active May Use - eCW1 (Formerly [facility], 1928–1983) May Use - UNK 12/26/2020 12:00:00 AM EDT active May Use - eCW1 (Formerly [facility], 1928–1983) May Use - UNK 12/26/2020 12:00:00 AM EDT active May Use - eCW1 (Formerly [facility], 1928–1983) May Use - UNK 12/26/2020 12:00:00 AM EDT active May Use - eCW1 (Formerly [facility], 1928–1983) May Use - UNK 12/26/2020 12:00:00 AM EDT active May Use - eCW1 (Formerly [facility], 1928–1983) May Use - UNK 12/26/2020 12:00:00 AM EDT active May Use - eCW1 (Formerly [facility], 1928–1983) May Use - UNK 12/26/2020 12:00:00 AM EDT active May Use - eCW1 (Formerly [facility], 1928–1983) May Use - UNK 12/26/2020 12:00:00 AM EDT active May Use - eCW1 (Formerly [facility], 1928–1983) May Use - UNK 12/26/2020 12:00:00 AM EDT active May Use - eCW1 (Formerly [facility], 1928–1983) May Use - UNK 12/26/2020 12:00:00 AM EDT active May Use - eCW1 (Formerly [facility], 1928–1983) May Use - UNK 12/26/2020 12:00:00 AM EDT active May Use - eCW1 (Formerly [facility], 1928–1983) May Use - UNK 12/26/2020 12:00:00 AM EDT active May Use - eCW1 (Formerly [facility], 1928–1983) May Use - UNK 12/26/2020 12:00:00 AM EDT active May Use - eCW1 (Formerly [facility], 1928–1983) May Use - UNK 12/26/2020 12:00:00 AM EDT active May Use - eCW1 (Formerly [facility], 1928–1983) May Use - UNK 12/26/2020 12:00:00 AM EDT active May Use - eCW1 (Formerly [facility], 1928–1983) May Use - UNK 12/26/2020 12:00:00 AM EDT active May Use - eCW1 (Formerly [facility], 1928–1983) May Use - UNK 12/26/2020 12:00:00 AM EDT active May Use - eCW1 (Formerly [facility], 1928–1983) May Use - UNK 12/26/2020 12:00:00 AM EDT active May Use - eCW1 (Formerly [facility], 1928–1983) May Use - UNK 12/26/2020 12:00:00 AM EDT active May Use - eCW1 (Formerly [facility], 1928–1983) May Use - UNK 12/26/2020 12:00:00 AM EDT active May Use - eCW1 (Formerly [facility], 1928–1983) May Use - UNK 12/26/2020 12:00:00 AM EDT active May Use - eCW1 (Formerly [facility], 1928–1983) May Use - UNK 12/26/2020 12:00:00 AM EDT active May Use - eCW1 (Formerly [facility], 1928–1983) May Use - UNK 12/26/2020 12:00:00 AM EDT active May Use - eCW1 (Formerly [facility], 1928–1983) May Use - UNK 12/26/2020 12:00:00 AM EDT active May Use - eCW1 (Formerly [facility], 1928–1983) 200 mg 12/20/2020 12:00:00 AM EDT tablet [...] DAILY DOSE = 2 TABLETS SOLD: 12/12/2020 [facility] Oxycodone Hydrochloride 10 MG Oral Tablet Oxycodone HC l 10 MG Oxycodone HCl 10 MG 12/11/2020 12:00:00 AM EDT 1.0 {tablet_as_needed} active Oxycodone HCl 10 MG eCW1 (Formerly [facility], 1928–1983) Oxycodone Hydrochloride 10 MG Oral Tablet Oxycodone HC l 10 MG Oxycodone HCl 10 MG 12/11/2020 12:00:00 AM EDT 1.0 {tablet_as_needed} active Oxycodone HCl 10 MG eCW1 (Formerly [facility], 1928–1983) Oxycodone Hydrochloride 10 MG Oral Tablet Oxycodone HC l 10 MG Oxycodone HCl 10 MG 12/11/2020 12:00:00 AM EDT 1.0 {tablet_as_needed} active Oxycodone HCl 10 MG eCW1 (Formerly [facility], 1928–1983) Oxycodone Hydrochloride 10 MG Oral Tablet Oxycodone HC l 10 MG Oxycodone HCl 10 MG 12/11/2020 12:00:00 AM EDT 1.0 {tablet_as_needed} active Oxycodone HCl 10 MG eCW1 (Formerly [facility], 1928–1983) Oxycodone Hydrochloride 10 MG Oral Tablet Oxycodone HC l 10 MG Oxycodone HCl 10 MG 12/11/2020 12:00:00 AM EDT 1.0 {tablet_as_needed} active Oxycodone HCl 10 MG eCW1 (Formerly [facility], 1928–1983) 325 mg (65 mg iron) 12/06/2020 12:00:00 AM EDT tablet, delayed release (DR/EC) 30 TAKE ONE TABLET BY MOUTH EVERY DAY TAKE ONE TABL ET BY MOUTH EVERY DAY SOLD: 12/06/2020 [facility] 325 mg (65 mg iron) 12/06/2020 12:00:00 AM EDT tablet, delayed release (DR/EC) 30 TAKE ONE TABLET BY MOUTH EVERY DAY TAKE ONE TABL ET BY MOUTH EVERY DAY SOLD: 03/06/2021 [facility] 325 mg (65 mg iron) 12/06/2020 12:00:00 AM EDT tablet, delayed release (DR/EC) 30 TAKE ONE TABLET BY MOUTH EVERY DAY TAKE ONE TABL ET BY MOUTH EVERY DAY SOLD: 01/22/2021 [facility] 18-400 mg-mcg 12/06/2020 12:00:00 AM EDT tablet 30 TAKE ONE TABLET BY MOUTH EVERY DAY TAKE ONE TABLET BY MOUTH EVERY DAY SOLD: 02/01/2021 [facility] 18-400 mg-mcg 12/06/2020 12:00:00 AM EDT tablet 30 TAKE ONE TABLET BY MOUTH EVERY DAY TAKE ONE TABLET BY MOUTH EVERY DAY SOLD: 02/28/2021 [facility] 18-400 mg-mcg 12/06/2020 12:00:00 AM EDT tablet 30 TAKE ONE TABLET BY MOUTH EVERY DAY TAKE ONE TABLET BY MOUTH EVERY DAY SOLD: 12/06/2020 [facility] 18-400 mg-mcg 12/06/2020 12:00:00 AM EDT tablet 30 TAKE ONE TABLET BY MOUTH EVERY DAY TAKE ONE TABLET BY MOUTH EVERY DAY SOLD: 01/04/2021 [facility] 20-100 mcg/actuation 11/28/2020 12:00:00 AM EDT mist 4 INHALE ONE PUFF BY MOUTH FOUR TIMES A DAY INHALE ONE PUFF BY MOUTH FOUR TIMES A DAY SOLD: 11/28/2020 [facility] Amlodipine 2.5 MG Oral Tablet AMLODIPINE BESYLATE 11/28/2020 12: 00:00 AM EDT tablet 90 TAKE ONE TABLET BY MOUTH EVERY M ORNING TAKE ONE TABLET BY MOUTH EVERY MORNING SOLD: 11/28/2020 [facility] Combivent Respimat 20-100 mcg/act UNK 11/24/2020 12:00:00 AM EST 1.0 {puff} active Combivent Respimat 20-100 mcg/act eCW1 (Formerly [facility], 1928–1983) Combivent Respimat 20-100 mcg/act UNK 11/24/2020 12:00:00 AM EST 1.0 {puff} active Combivent Respimat 20-100 mcg/act eCW1 (Formerly [facility], 1928–1983) Combivent Respimat 20-100 mcg/act UNK 11/24/2020 12:00:00 AM EST 1.0 {puff} active Combivent Respimat 20-100 mcg/act eCW1 (Formerly [facility], 1928–1983) Combivent Respimat 20-100 mcg/act UNK 11/24/2020 12:00:00 AM EST 1.0 {puff} active Combivent Respimat 20-100 mcg/act eCW1 (Formerly [facility], 1928–1983) Combivent Respimat 20-100 mcg/act UNK 11/24/2020 12:00:00 AM EST 1.0 {puff} active Combivent Respimat 20-100 mcg/act eCW1 (Formerly [facility], 1928–1983) Combivent Respimat 20-100 mcg/act UNK 11/24/2020 12:00:00 AM EST 1.0 {puff} active Combivent Respimat 20-100 mcg/act eCW1 (Formerly [facility], 1928–1983) Combivent Respimat 20-100 mcg/act UNK 11/24/2020 12:00:00 AM EST 1.0 {puff} active Combivent Respimat 20-100 mcg/act eCW1 (Formerly [facility], 1928–1983) Combivent Respimat 20-100 mcg/act UNK 11/24/2020 12:00:00 AM EST 1.0 {puff} active Combivent Respimat 20-100 mcg/act eCW1 (Formerly [facility], 1928–1983) Combivent Respimat 20-100 mcg/act K 11/24/2020 12:00:00 AM EST 1.0 {puff} active Combivent Respimat 20-100 mcg/act eCW1 (Formerly [facility], 1928–1983) Combivent Respimat 20-100 mcg/act K 11/24/2020 12:00:00 AM EST 1.0 {puff} active Combivent Respimat 20-100 mcg/act eCW1 (Formerly [facility], 1928–1983) Combivent Respimat 20-100 mcg/act K 11/24/2020 12:00:00 AM EST 1.0 {puff} active Combivent Respimat 20-100 mcg/act eCW1 (Formerly [facility], 1928–1983) Combivent Respimat 20-100 mcg/act UNK 11/24/2020 12:00:00 AM EST 1.0 {puff} active Combivent Respimat 20-100 mcg/act eCW1 (Formerly [facility], 1928–1983) Combivent Respimat 20-100 mcg/act K 11/24/2020 12:00:00 AM EST 1.0 {puff} active Combivent Respimat 20-100 mcg/act eCW1 (Formerly [facility], 1928–1983) Combivent Respimat 20-100 mcg/act UNK 11/24/2020 12:00:00 AM EST 1.0 {puff} active Combivent Respimat 20-100 mcg/act eCW1 (Formerly [facility], 1928–1983) Combivent Respimat 20-100 mcg/act UNK 11/24/2020 12:00:00 AM EST 1.0 {puff} active Combivent Respimat 20-100 mcg/act eCW1 (Formerly [facility], 1928–1983) Combivent Respimat 20-100 mcg/act UNK 11/24/2020 12:00:00 AM EST 1.0 {puff} active Combivent Respimat 20-100 mcg/act eCW1 (Formerly [facility], 1928–1983) Combivent Respimat 20-100 mcg/act UNK 11/24/2020 12:00:00 AM EST 1.0 {puff} active Combivent Respimat 20-100 mcg/act eCW1 (Formerly [facility], 1928–1983) Combivent Respimat 20-100 mcg/act UNK 11/24/2020 12:00:00 AM EST 1.0 {puff} active Combivent Respimat 20-100 mcg/act eCW1 (Formerly [facility], 1928–1983) Combivent Respimat 20-100 mcg/act UNK 11/24/2020 12:00:00 AM EST 1.0 {puff} active Combivent Respimat 20-100 mcg/act eCW1 (Formerly [facility], 1928–1983) Oxycodone Hydrochloride 10 MG Oral Tablet Oxycodone HC l 10 MG Oxycodone HCl 10 MG 11/16/2020 12:00:00 AM EST 1.0 {tablet_as_needed} active Oxycodone HCl 10 MG eCW1 (Formerly [facility], 1928–1983) Fluconazole 200 MG Oral Tablet fluconazole (DIFLUCAN) 200 MG tablet fluconazole (DIFLUCAN) 200 MG tablet 11/16/2020 12:00:00 AM EST 400 mg Oral active Take 400 mg by mouth daily [facility] 10 mg 11/16/2020 12:00:00 AM EST tablet 60 TAKE ONE TABLET BY MOUTH TWICE A DAY NEEDED FOR PAIN MAXIMUM DAILY DOSE = 2 TAKE ONE TABLET BY MOUTH TWICE A DAY NEEDED FOR PAIN MAXIMUM DAILY DOSE = 2 SOLD: 11/16/2020 [facility] Rosuvastatin calcium 10 MG Oral Tablet ROSUVASTATIN CALCIUM 10/31/2020 12:00:00 AM EST tablet 30 TAKE ONE TABLET BY MOUTH ADRIANA RY DAY TAKE ONE TABLET BY MOUTH EVERY DAY SOLD: 12/27/2020 [facility] Paroxetine Hydrochloride 40 MG Oral [...] MOUTH EVERY MORNING SOLD: 04/09/2021 [facility] Rosuvastatin calcium 10 MG Oral [...] MORNING SOLD: 12/20/2020 [facility] 10 mg 10/31/2020 12:00:00 AM EST tablet 30 TAKE ONE TABLET BY MOUTH EVERY DAY TAKE ONE TABLET BY MOUTH EVERY DAY SOLD: 11/28/2020 [facility] 10 mg 10/19/2020 12:00:00 AM EST tablet 60 TAKE ONE TABLET BY MOUTH TWICE A DAY NEEDED FOR PAIN MAXIMUM DAILY DOSE = 2 TAKE ONE TABLET BY MOUTH TWICE A DAY NEEDED FOR PAIN MAXIMUM DAILY DOSE = 2 SOLD: 10/20/2020 [facility] Oxycodone Hydrochloride 10 MG Oral Tablet Oxycodone HC l 10 MG Oxycodone HCl 10 MG 10/18/2020 12:00:00 AM EST 1.0 {tablet_as_needed} active Oxycodone HCl 10 MG eCW1 (Formerly [facility], 1928–1983) Oxycodone Hydrochloride 10 MG Oral Tablet Oxycodone HC l 10 MG Oxycodone HCl 10 MG 10/18/2020 12:00:00 AM EST 1.0 {tablet_as_needed} active Oxycodone HCl 10 MG eCW1 (Formerly [facility], 1928–1983) Oxycodone Hydrochloride 10 MG Oral Tablet Oxycodone HC l 10 MG Oxycodone HCl 10 MG 10/18/2020 12:00:00 AM EST 1.0 {tablet_as_needed} active Oxycodone HCl 10 MG eCW1 (Formerly [facility], 1928–1983) Oxycodone Hydrochloride 10 MG Oral Tablet Oxycodone HC l 10 MG Oxycodone HCl 10 MG 10/18/2020 12:00:00 AM EST 1.0 {tablet_as_needed} active Oxycodone HCl 10 MG eCW1 (Formerly [facility], 1928–1983) Oxycodone Hydrochloride 10 MG Oral Tablet Oxycodone HC l 10 MG Oxycodone HCl 10 MG 10/18/2020 12:00:00 AM EST 1.0 {tablet_as_needed} active Oxycodone HCl 10 MG eCW1 (Formerly [facility], 1928–1983) 18-400 mg-mcg 09/25/2020 12:00:00 AM EST tablet 30 TAKE ONE TABLET BY MOUTH EVERY DAY TAKE ONE TABLET BY MOUTH EVERY DAY SOLD: 09/25/2020 [facility] 10 mg 09/18/2020 12:00:00 AM EST [...] TABLET BY MOUTH EVERY DAY SOLD: 09/14/2020 [facility] Oxycodone Hydrochloride 10 MG Oral Tablet Oxycodone HC l 10 MG Oxycodone HCl 10 MG 09/13/2020 12:00:00 AM EST 1.0 {tablet_as_needed} active Oxycodone HCl 10 MG eCW1 (Formerly [facility], 1928–1983) Oxycodone Hydrochloride 10 MG Oral Tablet Oxycodone HC l 10 MG Oxycodone HCl 10 MG 09/13/2020 12:00:00 AM EST 1.0 {tablet_as_needed} active Oxycodone HCl 10 MG eCW1 (Formerly [facility], 1928–1983) pantoprazole 40 MG Delayed Release Oral Tablet PANTOPRAZOLE SODIUM 09/13/2020 12:00:00 AM EST tablet,delayed release (DR/EC) 30 T MAG ONE TABLET BY MOUTH EVERY DAY TAKE ONE TABLET BY MOUTH EVERY DAY SOLD: 02/19/2021 [facility] pantoprazole 40 MG Delayed Release Oral Tablet PANTOPRAZOLE SODIUM 09/13/2020 12:00:00 AM EST tablet,delayed release (DR/EC) 30 T MAG ONE TABLET BY MOUTH EVERY DAY TAKE ONE TABLET BY MOUTH EVERY DAY SOLD: 01/21/2021 [facility] Oxycodone Hydrochloride 10 MG Oral Tablet Oxycodone HC l 10 MG Oxycodone HCl 10 MG 09/13/2020 12:00:00 AM EST 1.0 {tablet_as_needed} active Oxycodone HCl 10 MG eCW1 (Formerly [facility], 1928–1983) pantoprazole 40 MG Delayed Release Oral Tablet PANTOPRAZOLE SODIUM 09/13/2020 12:00:00 AM EST tablet,delayed release (DR/EC) 30 T MAG ONE TABLET BY MOUTH EVERY DAY TAKE ONE TABLET BY MOUTH EVERY DAY SOLD: 11/16/2020 [facility] pantoprazole 40 MG Delayed Release Oral Tablet PANTOPRAZOLE SODIUM 09/13/2020 12:00:00 AM EST tablet,delayed release (DR/EC) 30 T MAG ONE TABLET BY MOUTH EVERY DAY TAKE ONE TABLET BY MOUTH EVERY DAY SOLD: 12/20/2020 [facility] pantoprazole 40 MG Delayed Release Oral Tablet PANTOPRAZOLE SODIUM 09/13/2020 12:00:00 AM EST tablet,delayed release (DR/EC) 30 T MAG ONE TABLET BY MOUTH EVERY DAY TAKE ONE TABLET BY MOUTH EVERY DAY SOLD: 10/15/2020 [facility] 2.5 mg 09/11/2020 12:00:00 AM [...] MOUTH EVERY DAY SOLD: 10/10/2020 [facility] 2.5 mg 09/11/2020 12:00:00 AM EST tablet 30 TAKE ONE TABLET BY MOUTH EVERY DAY TAKE ONE TABLET BY MOUTH EVERY DAY SOLD: 09/11/2020 [facility] 10 mg 08/30/2020 12:00:00 AM [...] {tablet_as_needed} active Oxycodone HCl 10 MG eCW1 (Formerly [facility], 1928–1983) Oxycodone Hydrochloride 10 MG Oral Tablet Oxycodone HC l 10 MG Oxycodone HCl 10 MG 08/29/2020 12:00:00 AM EST 1.0 {tablet_as_needed} active Oxycodone HCl 10 MG eCW1 (Formerly [facility], 1928–1983) 800 mg 08/28/2020 12:00:00 AM EST tablet [...] TABLET BY MOUTH EVERY MORNING SOLD: 10/27/2020 [facility] Oxycodone Hydrochloride 10 MG Oral Tablet Oxycodone HC l 10 MG Oxycodone HCl 10 MG 07/31/2020 12:00:00 AM EST 1.0 {tablet_as_needed} active Oxycodone HCl 10 MG eCW1 (Formerly [facility], 1928–1983) carvedilol 6.25 MG Oral Tablet CARVEDILOL 07/31/2020 12:00:00 AM EST tablet 60 TAKE ONE TABLET BY MOUTH TWICE A DAY TAKE ONE TABLET BY MOUT H TWICE A DAY SOLD: 08/28/2020 [facility] Oxycodone Hydrochloride 10 MG Oral Tablet Oxycodone HC l 10 MG Oxycodone HCl 10 MG 07/31/2020 12:00:00 AM EST 1.0 {tablet_as_needed} active Oxycodone HCl 10 MG eCW1 (Formerly [facility], 1928–1983) carvedilol 6.25 MG Oral Tablet CARVEDILOL 07/31/2020 12:00:00 AM EST tablet 60 TAKE ONE TABLET BY MOUTH TWICE A DAY TAKE ONE TABLET BY MOUT H TWICE A DAY SOLD: 07/31/2020 [facility] carvedilol 6.25 MG Oral Tablet CARVEDILOL 07/31/2020 12:00:00 AM EST tablet 60 TAKE ONE TABLET BY MOUTH TWICE A DAY TAKE ONE TABLET BY MOUT H TWICE A DAY SOLD: 11/24/2020 [facility] carvedilol 6.25 MG Oral Tablet CARVEDILOL 07/31/2020 12:00:00 AM EST tablet 60 TAKE ONE TABLET BY MOUTH TWICE A DAY TAKE ONE TABLET BY MOUT H TWICE A DAY SOLD: 10/27/2020 [facility] carvedilol 6.25 MG Oral Tablet CARVEDILOL 07/31/2020 12:00:00 AM EST tablet 60 TAKE ONE TABLET BY MOUTH TWICE A DAY TAKE ONE TABLET BY MOUT H TWICE A DAY SOLD: 09/28/2020 [facility] carvedilol 6.25 MG Oral Tablet CARVEDILOL 07/31/2020 12:00:00 AM EST tablet 60 TAKE ONE TABLET BY MOUTH TWICE A DAY TAKE ONE TABLET BY MOUT H TWICE A DAY SOLD: 12/21/2020 [facility] 81 mg 07/29/2020 12:00:00 AM EST tablet,chewable 90 CHEW ONE TABLET BY MOUTH EVERY DAY CHEW ONE TABLET BY MOUTH EVERY DAY SOLD: 07/30/2020 [facility] 81 mg 07/29/2020 12:00:00 AM EST tablet,chewable 90 CHEW ONE TABLET BY MOUTH EVERY DAY CHEW ONE TABLET BY MOUTH EVERY DAY SOLD: 10/26/2020 [facility] Amlodipine 2.5 MG Oral Tablet amLODIPine (NORVASC) 2.5 MG tablet amLODIPine (NORVASC) 2.5 MG tablet 07/28/2020 12:00:00 AM EST 2.5 mg Oral active Take 2.5 mg by mouth daily [facility] Lidocaine 40 MG/ML Topical Cream lidocaine (LMX) 4 % c ream lidocaine (LMX) 4 % cream 07/25/2020 12:00:00 AM EST active APPLY TO AFFECTED AREA S ON FOOT 2 3 TIMES DAILY NEEDED [facility] 5 mg 07/21/2020 12:00:00 AM EST tablet 30 TAKE ONE TABLET BY MOUTH EVERY MORNING TAKE ONE TABLET BY MOUTH EVERY MORNING SOLD: 07/25/2020 [facility] Rosuvastatin calcium 10 MG Oral Tablet ROSUVASTATIN CALCIUM 07/19/2020 12:00:00 AM EST tablet 30 TAKE ONE TABLET BY MOUTH ADRIANA TAKE ONE TABLET BY MOUTH EVERY DAY SOLD: 09/11/2020 [facility] 10 mg 07/16/2020 12:00:00 AM EDT tablet 90 TAKE ONE TABLET BY MOUTH EVERY DAY TAKE ONE TABLET BY MOUTH EVERY DAY SOLD: 07/17/2020 [facility] Cephalexin 500 MG Oral Capsule Cephalexin 500 MG 07/14/2020 12:00:0 0 AM EDT 1.0 {tablet} suspended Cephalexin 500 MG eCW1 (Formerly [facility], 1928–1983) Cephalexin 500 MG Oral Capsule Cephalexin 500 MG 07/14/2020 12:00:0 0 AM EDT 1.0 {tablet} suspended Cephalexin 500 MG eCW1 (Formerly [facility], 1928–1983) Cephalexin 500 MG Oral Capsule Cephalexin 500 MG 07/14/2020 12:00:0 0 AM EDT 1.0 {tablet} suspended Cephalexin 500 MG eCW1 (Formerly [facility], 1928–1983) Cephalexin 500 MG Oral Capsule Cephalexin 500 MG 07/14/2020 12:00:0 0 AM EDT 1.0 {tablet} suspended Cephalexin 500 MG eCW1 (Formerly [facility], 1928–1983) Cephalexin 500 MG Oral Capsule Cephalexin 500 MG 07/14/2020 12:00:0 0 AM EDT 1.0 {tablet} suspended Cephalexin 500 MG eCW1 (Formerly [facility], 1928–1983) Cephalexin 500 MG Oral Capsule Cephalexin 500 MG 07/14/2020 12:00:0 0 AM EDT 1.0 {tablet} suspended Cephalexin 500 MG eCW1 (Formerly [facility], 1928–1983) Cephalexin 500 MG Oral Capsule Cephalexin 500 MG 07/14/2020 12:00:0 0 AM EDT 1.0 {tablet} suspended Cephalexin 500 MG eCW1 (Formerly [facility], 1928–1983) Cephalexin 500 MG Oral Capsule Cephalexin 500 MG 07/14/2020 12:00:0 0 AM EDT 1.0 {tablet} suspended Cephalexin 500 MG eCW1 (Formerly [facility], 1928–1983) Cephalexin 500 MG Oral Capsule Cephalexin 500 MG 07/14/2020 12:00:0 0 AM EDT 1.0 {tablet} suspended Cephalexin 500 MG eCW1 (Formerly [facility], 1928–1983) Cephalexin 500 MG Oral Capsule Cephalexin 500 MG 07/14/2020 12:00:0 0 AM EDT 1.0 {tablet} suspended Cephalexin 500 MG eCW1 (Formerly [facility], 1928–1983) Cephalexin 500 MG Oral Capsule Cephalexin 500 MG 07/14/2020 12:00:0 0 AM EDT 1.0 {tablet} suspended Cephalexin 500 MG eCW1 (Formerly [facility], 1928–1983) Cephalexin 500 MG Oral Capsule Cephalexin 500 MG 07/14/2020 12:00:0 0 AM EDT 1.0 {tablet} suspended Cephalexin 500 MG eCW1 (Formerly [facility], 1928–1983) Cephalexin 500 MG Oral Capsule Cephalexin 500 MG 07/14/2020 12:00:0 0 AM EDT 1.0 {tablet} suspended Cephalexin 500 MG eCW1 (Formerly [facility], 1928–1983) Cephalexin 500 MG Oral Capsule Cephalexin 500 MG 07/14/2020 12:00:0 0 AM EDT 1.0 {tablet} active Cephalexin 500 MG e CW1 (Formerly [facility], 1928–1983) Cephalexin 500 MG Oral Capsule Cephalexin 500 MG 07/14/2020 12:00:0 0 AM EDT 1.0 {tablet} suspended Cephalexin 500 MG eCW1 (Formerly [facility], 1928–1983) Cephalexin 500 MG Oral Capsule Cephalexin 500 MG 07/14/2020 12:00:0 0 AM EDT 1.0 {tablet} suspended Cephalexin 500 MG eCW1 (Formerly [facility], 1928–1983) Cephalexin 500 MG Oral Capsule Cephalexin 500 MG 07/14/2020 12:00:0 0 AM EDT 1.0 {tablet} suspended Cephalexin 500 MG eCW1 (Formerly [facility], 1928–1983) Cephalexin 500 MG Oral Capsule Cephalexin 500 MG 07/14/2020 12:00:0 0 AM EDT 1.0 {tablet} active Cephalexin 500 MG e CW1 (Formerly [facility], 1928–1983) Cephalexin 500 MG Oral Capsule Cephalexin 500 MG 07/14/2020 12:00:0 0 AM EDT 1.0 {tablet} active Cephalexin 500 MG e CW1 (Formerly [facility], 1928–1983) Cephalexin 500 MG Oral Capsule Cephalexin 500 MG 07/14/2020 12:00:0 0 AM EDT 1.0 {tablet} active Cephalexin 500 MG e CW1 (Formerly [facility], 1928–1983) Cephalexin 500 MG Oral Capsule Cephalexin 500 MG 07/14/2020 12:00:0 0 AM EDT 1.0 {tablet} active Cephalexin 500 MG e CW1 (Formerly [facility], 1928–1983) Cephalexin 500 MG Oral Capsule Cephalexin 500 MG 07/14/2020 12:00:0 0 AM EDT 1.0 {tablet} suspended Cephalexin 500 MG eCW1 (Formerly [facility], 1928–1983) Cephalexin 500 MG Oral Capsule Cephalexin 500 MG 07/14/2020 12:00:0 0 AM EDT 1.0 {tablet} suspended Cephalexin 500 MG eCW1 (Formerly [facility], 1928–1983) Cephalexin 500 MG Oral Capsule Cephalexin 500 MG 07/14/2020 12:00:0 0 AM EDT 1.0 {tablet} suspended Cephalexin 500 MG eCW1 (Formerly [facility], 1928–1983) Cephalexin 500 MG Oral Capsule Cephalexin 500 MG 07/14/2020 12:00:0 0 AM EDT 1.0 {tablet} suspended Cephalexin 500 MG eCW1 (Formerly [facility], 1928–1983) Cephalexin 500 MG Oral Capsule Cephalexin 500 MG 07/14/2020 12:00:0 0 AM EDT 1.0 {tablet} suspended Cephalexin 500 MG eCW1 (Formerly [facility], 1928–1983) Cephalexin 500 MG Oral Capsule Cephalexin 500 MG 07/14/2020 12:00:0 0 AM EDT 1.0 {tablet} active Cephalexin 500 MG e CW1 (Formerly [facility], 1928–1983) Cephalexin 500 MG Oral Capsule Cephalexin 500 MG 07/14/2020 12:00:0 0 AM EDT 1.0 {tablet} suspended Cephalexin 500 MG eCW1 (Formerly [facility], 1928–1983) Cephalexin 500 MG Oral Capsule Cephalexin 500 MG 07/14/2020 12:00:0 0 AM EDT 1.0 {tablet} suspended Cephalexin 500 MG eCW1 (Formerly [facility], 1928–1983) Cephalexin 500 MG Oral Capsule Cephalexin 500 MG 07/14/2020 12:00:0 0 AM EDT 1.0 {tablet} active Cephalexin 500 MG e CW1 (Formerly [facility], 1928–1983) Cephalexin 500 MG Oral Capsule Cephalexin 500 MG 07/14/2020 12:00:0 0 AM EDT 1.0 {tablet} suspended Cephalexin 500 MG eCW1 (Formerly [facility], 1928–1983) Cephalexin 500 MG Oral Capsule Cephalexin 500 MG 07/14/2020 12:00:0 0 AM EDT 1.0 {tablet} suspended Cephalexin 500 MG eCW1 (Formerly [facility], 1928–1983) 500 mg 07/14/2020 12:00:00 AM EDT capsule 30 TAKE ONE CAPSULE BY MOUTH THREE TIMES A DAY TAKE ONE CAPSULE BY MOUTH THREE TIMES A DAY SOLD: 07/14/2020 [facility] Cephalexin 500 MG Oral Capsule Cephalexin 500 MG 07/14/2020 12:00:0 0 AM EDT 1.0 {tablet} suspended Cephalexin 500 MG eCW1 (Formerly [facility], 1928–1983) Cephalexin 500 MG Oral Capsule Cephalexin 500 MG 07/14/2020 12:00:0 0 AM EDT 1.0 {tablet} active Cephalexin 500 MG e CW1 (Formerly [facility], 1928–1983) Cephalexin 500 MG Oral Capsule Cephalexin 500 MG 07/14/2020 12:00:0 0 AM EDT 1.0 {tablet} active Cephalexin 500 MG e CW1 (Formerly [facility], 1928–1983) Cephalexin 500 MG Oral Capsule Cephalexin 500 MG 07/14/2020 12:00:0 0 AM EDT 1.0 {tablet} suspended Cephalexin 500 MG eCW1 (Formerly [facility], 1928–1983) Cephalexin 500 MG Oral Capsule Cephalexin 500 MG 07/14/2020 12:00:0 0 AM EDT 1.0 {tablet} suspended Cephalexin 500 MG eCW1 (Formerly [facility], 1928–1983) 17 gram 07/12/2020 12:00:00 AM EDT powder [...] TIMES A DAY SOLD: 11/09/2020 [facility] 4 % 07/12/2020 12:00:00 AM EDT cream [...] ONCE DAILY SOLD: 07/12/2020 [facility] 600 mg 07/12/2020 12:00:00 AM EDT tablet 90 TAKE ONE TABLET BY MOUTH THREE TIMES A DAY TAKE ONE TABLET BY MOUTH THREE TIMES A DAY SOLD: 09/12/2020 [facility] 600 mg 07/12/2020 12:00:00 AM EDT tablet 90 TAKE ONE TABLET BY MOUTH THREE TIMES A DAY TAKE ONE TABLET BY MOUTH THREE TIMES A DAY SOLD: 10/13/2020 [facility] 600 mg 07/12/2020 12:00:00 AM EDT tablet 90 TAKE ONE TABLET BY MOUTH THREE TIMES A DAY TAKE ONE TABLET BY MOUTH THREE TIMES A DAY SOLD: 12/06/2020 [facility] Amlodipine 2.5 MG Oral Tablet AmLODIPine Besylate 2.5 MG AmLODIPine Besylate 2.5 MG 07/11/2020 12:00:00 AM EDT 1.0 {tablet} activ e AmLODIPine Besylate 2.5 MG eCW1 (Formerly [facility], 1928–1983) Amlodipine 2.5 MG Oral Tablet AmLODIPine Besylate 2.5 MG AmLODIPine Besylate 2.5 MG 07/11/2020 12:00:00 AM EDT 1.0 {tablet} activ e AmLODIPine Besylate 2.5 MG eCW1 (Formerly [facility], 1928–1983) Amlodipine 2.5 MG Oral Tablet AmLODIPine Besylate 2.5 MG AmLODIPine Besylate 2.5 MG 07/11/2020 12:00:00 AM EDT 1.0 {tablet} activ e AmLODIPine Besylate 2.5 MG eCW1 (Formerly [facility], 1928–1983) Amlodipine 2.5 MG Oral Tablet AmLODIPine Besylate 2.5 MG AmLODIPine Besylate 2.5 MG 07/11/2020 12:00:00 AM EDT 1.0 {tablet} activ e AmLODIPine Besylate 2.5 MG eCW1 (Formerly [facility], 1928–1983) Amlodipine 2.5 MG Oral Tablet AmLODIPine Besylate 2.5 MG AmLODIPine Besylate 2.5 MG 07/11/2020 12:00:00 AM EDT 1.0 {tablet} activ e AmLODIPine Besylate 2.5 MG eCW1 (Formerly [facility], 1928–1983) Amlodipine 2.5 MG Oral Tablet AmLODIPine Besylate 2.5 MG AmLODIPine Besylate 2.5 MG 07/11/2020 12:00:00 AM EDT 1.0 {tablet} activ e AmLODIPine Besylate 2.5 MG eCW1 (Formerly [facility], 1928–1983) Amlodipine 2.5 MG Oral Tablet AmLODIPine Besylate 2.5 MG AmLODIPine Besylate 2.5 MG 07/11/2020 12:00:00 AM EDT 1.0 {tablet} activ e AmLODIPine Besylate 2.5 MG eCW1 (Formerly [facility], 1928–1983) Amlodipine 2.5 MG Oral Tablet AmLODIPine Besylate 2.5 MG AmLODIPine Besylate 2.5 MG 07/11/2020 12:00:00 AM EDT 1.0 {tablet} activ e AmLODIPine Besylate 2.5 MG eCW1 (Formerly [facility], 1928–1983) Amlodipine 2.5 MG Oral Tablet AmLODIPine Besylate 2.5 MG AmLODIPine Besylate 2.5 MG 07/11/2020 12:00:00 AM EDT 1.0 {tablet} activ e AmLODIPine Besylate 2.5 MG eCW1 (Formerly [facility], 1928–1983) Amlodipine 2.5 MG Oral Tablet AmLODIPine Besylate 2.5 MG AmLODIPine Besylate 2.5 MG 07/11/2020 12:00:00 AM EDT 1.0 {tablet} activ e AmLODIPine Besylate 2.5 MG eCW1 (Formerly [facility], 1928–1983) Amlodipine 2.5 MG Oral Tablet AmLODIPine Besylate 2.5 MG AmLODIPine Besylate 2.5 MG 07/11/2020 12:00:00 AM EDT 1.0 {tablet} activ e AmLODIPine Besylate 2.5 MG eCW1 (Formerly [facility], 1928–1983) Amlodipine 2.5 MG Oral Tablet AmLODIPine Besylate 2.5 MG AmLODIPine Besylate 2.5 MG 07/11/2020 12:00:00 AM EDT 1.0 {tablet} activ e AmLODIPine Besylate 2.5 MG eCW1 (Formerly [facility], 1928–1983) Amlodipine 2.5 MG Oral Tablet AmLODIPine Besylate 2.5 MG AmLODIPine Besylate 2.5 MG 07/11/2020 12:00:00 AM EDT 1.0 {tablet} activ e AmLODIPine Besylate 2.5 MG eCW1 (Formerly [facility], 1928–1983) Amlodipine 2.5 MG Oral Tablet AmLODIPine Besylate 2.5 MG AmLODIPine Besylate 2.5 MG 07/11/2020 12:00:00 AM EDT 1.0 {tablet} activ e AmLODIPine Besylate 2.5 MG eCW1 (Formerly [facility], 1928–1983) Amlodipine 2.5 MG Oral Tablet AmLODIPine Besylate 2.5 MG AmLODIPine Besylate 2.5 MG 07/11/2020 12:00:00 AM EDT 1.0 {tablet} activ e AmLODIPine Besylate 2.5 MG eCW1 (Formerly [facility], 1928–1983) Amlodipine 2.5 MG Oral Tablet AmLODIPine Besylate 2.5 MG AmLODIPine Besylate 2.5 MG 07/11/2020 12:00:00 AM EDT 1.0 {tablet} activ e AmLODIPine Besylate 2.5 MG eCW1 (Formerly [facility], 1928–1983) Amlodipine 2.5 MG Oral Tablet AmLODIPine Besylate 2.5 MG AmLODIPine Besylate 2.5 MG 07/11/2020 12:00:00 AM EDT 1.0 {tablet} activ e AmLODIPine Besylate 2.5 MG eCW1 (Formerly [facility], 1928–1983) Amlodipine 2.5 MG Oral Tablet AmLODIPine Besylate 2.5 MG AmLODIPine Besylate 2.5 MG 07/11/2020 12:00:00 AM EDT 1.0 {tablet} activ e AmLODIPine Besylate 2.5 MG eCW1 (Formerly [facility], 1928–1983) Amlodipine 2.5 MG Oral Tablet AmLODIPine Besylate 2.5 MG AmLODIPine Besylate 2.5 MG 07/11/2020 12:00:00 AM EDT 1.0 {tablet} activ e AmLODIPine Besylate 2.5 MG eCW1 (Formerly [facility], 1928–1983) metaxalone 800 MG Oral Tablet metaxalone (SKELAXIN) 80 0 MG tablet metaxalone (SKELAXIN) 800 MG tablet 07/04/2020 12:00:00 AM EDT 800 mg Oral active Take 800 mg by mouth 3 (three) times a day [facility] Petrolatum 610 MG/ML Topical Cream Skin Protectants, M isc. (MINERIN CREME) CREA Skin Protectants, Misc. (MINERIN CREME) CREA 06/29/2020 12:00:00 AM EDT active DIRECTED TWO TIMES A DAY TO LOWER LEGS FROM KNEES DOWN [facility] LANOLIN ALCOHOLS/MINERAL OIL/PETROLATUM,WHITE/CERESIN 06/29/2020 12:00:00 [...] FROM KNEES DOWN SOLD: 09/07/2020 [facility] LANOLIN ALCOHOLS/MINERAL OIL/PETROLATUM,WHITE/CERESIN 06/29/2020 12:00:00 [...] FROM KNEES DOWN SOLD: 06/29/2020 [facility] Oxycodone Hydrochloride 10 MG Oral Tablet Oxycodone HC l 10 MG Oxycodone HCl 10 MG 06/28/2020 12:00:00 AM EDT 1.0 {tablet_as_needed} active Oxycodone HCl 10 MG eCW1 (Formerly [facility], 1928–1983) Oxycodone Hydrochloride 10 MG Oral Tablet Oxycodone HC l 10 MG Oxycodone HCl 10 MG 06/28/2020 12:00:00 AM EDT 1.0 {tablet_as_needed} active Oxycodone HCl 10 MG eCW1 (Formerly [facility], 1928–1983) 10 mg 06/28/2020 12:00:00 AM EDT tablet [...] {tablet_as_needed} active Oxycodone HCl 10 MG eCW1 (Formerly [facility], 1928–1983) Paroxetine Hydrochloride 40 MG Oral Tablet PAROXETINE HCL 06/13/2020 12:00:00 AM EDT tablet 30 TAKE ONE TABLET BY MOUTH ADRIANA TAKE ONE TABLET BY MOUTH EVERY DAY SOLD: 11/24/2020 [facility] Paroxetine Hydrochloride 40 MG Oral Tablet PAROXETINE HCL 06/13/2020 12:00:00 AM EDT tablet 30 TAKE ONE TABLET BY MOUTH ADRIANA TAKE ONE TABLET BY MOUTH EVERY DAY [...] MOUTH EVERY DAY SOLD: 10/10/2020 [facility] 325 mg (65 mg iron) 06/13/2020 12:00:00 AM EDT tablet, delayed release (DR/EC) 30 TAKE ONE TABLET BY MOUTH EVERY DAY TAKE ONE TABL ET BY MOUTH EVERY DAY SOLD: 09/11/2020 [facility] 4 % 05/31/2020 12:00:00 AM [...] TAKE ONE TABLET BY MOUTH EVERY DAY [facility] Essential hypertension Amlodipine 5 MG Oral Tablet amLODIPine (NORVASC) 5 MG tablet amLODIPine (NORVASC) 5 MG tablet 05/24/2020 12:00:00 AM EDT aborted Essential hypertension TAKE ONE TABLET BY MOUTH EVERY DAY [facility] Essential hypertension 800 mg 05/09/2020 12:00:00 AM EDT tablet 90 TAKE ONE TABLET BY MOUTH THREE TIMES A DAY TAKE ONE TABLET BY MOUTH THREE TIMES A DAY SOLD: 07/04/2020 [facility] 800 mg 05/09/2020 12:00:00 AM EDT tablet 90 TAKE ONE TABLET BY MOUTH THREE TIMES A DAY TAKE ONE TABLET BY MOUTH THREE TIMES A DAY SOLD: 07/31/2020 [facility] 18-400 mg-mcg 05/02/2020 12:00:00 AM [...] MOUTH EVERY DAY SOLD: 08/15/2020 [facility] 10 mg 04/25/2020 12:00:00 AM EDT tablet 30 TAKE ONE TABLET BY MOUTH EVERY DAY TAKE ONE TABLET BY MOUTH EVERY DAY SOLD: 06/25/2020 [facility] Rosuvastatin calcium 10 MG Oral Tablet ROSUVASTATIN CALCIUM 04/25/2020 12:00:00 AM EDT tablet 30 TAKE ONE TABLET BY MOUTH ADRIANA RY DAY TAKE ONE TABLET BY MOUTH EVERY DAY SOLD: 10/03/2020 [facility] pantoprazole 40 MG Delayed Release Oral Tablet [...] TABLETS BY MOUTH EVERY DAY SOLD: 11/16/2020 [facility] carvedilol 6.25 MG Oral Tablet CARVEDILOL 08/11/2019 12:00:00 AM EST tablet 60 TAKE ONE TABLET BY MOUTH TWICE A DAY WITH FOOD TAKE ON E TABLET BY MOUTH TWICE A DAY WITH FOOD SOLD: 07/04/2020 [facility] XTAMPZA ER 9 MG C12A [id number] 06/24/2019 12:00:00 AM EDT aborted TAKE ONE CAPSULE BY MOUTH EVERY 12 HOURS WITH FOOD MAXIMUM DAILY DOSE 2 [facility] Docusate Sodium 100 MG Oral Capsule docusate sodium (C OLACE) 100 MG capsule docusate sodium (COLACE) 100 MG capsule 04/19/2019 12:00:00 AM EDT aborted TAKE ONE CAPSULE BY MOUTH TWICE A DAY NEEDED [facility] Fluconazole 200 MG Oral Tablet fluconazole (DIFLUCAN) 200 MG tablet fluconazole (DIFLUCAN) 200 MG tablet 05/04/2018 12:00:00 AM EDT 200 mg Oral aborted Disseminated candidiasis Take 1 tablet (200 mg total) by annamarie th daily [facility] Disseminated candidiasis Cyclobenzaprine hydrochloride 10 MG Oral Tablet cyclobenzaprine (FLEXERIL) 10 MG tablet cyclobenzaprine (FLEXERIL) 10 MG tablet 01/10/2014 12:00:00 AM E DT 5 mg Oral aborted Take 5 mg by mouth night ly as needed [facility] Baclofen 10 MG Oral Tablet baclofen (LIORESAL) 10 MG t ablet baclofen (LIORESAL) 10 MG tablet 12/19/2010 12:00:00 AM EDT Oral aborted Take by mouth [facility] tadalafil 20 MG Oral Tablet [Cialis] tadalafil (CIALIS ) 20 MG tablet tadalafil (CIALIS) 20 MG tablet 05/09/2009 12:00:00 AM EDT a borted [facility] Rosuvastatin calcium 10 MG Oral Tablet rosuvastatin (C RESTOR) 10 MG tablet rosuvastatin (CRESTOR) 10 MG tablet 10 mg Oral ab orted Take 10 mg by mouth daily [facility] Insurance Providers Payer name Policy type / Coverage type Policy ID Covered constitution party ID Covered constitution party's relationship to bee Policy Bee Plan Information [place]ONDA [place] SELF INSURED [id number] SP [id number] WORKER'S COMP [id number] Emp [id number] WORKERS COMPENSATION GENERIC W [id number] Empl [id number] WORKER'S COMP [id number] Emp [id number] WORKER'S COMP [id number] Emp [id number] JARROD CLAIM ADMIN WORK COMP [id number] SP [id number] [facility] Self Insure Workers Compensation [id number] Self WORKER'S COMP [id number] [facility] SALES MERCH[employer]ISE ASSOC[employer]ATE [id number] [employer] Workers Compensation [id number] Self [id number] WORKERS COMP [place] CT[place] [id number] WORKER'S COMP [id number] Emp [id number] OTHER WORKERS COMPENSATION [id number] WI2 [id number] [employer] [id number] WI2 [id number] [employer] [id number] WI2 [id number] POMCO [id number] Spo [id number] POMCO [id number] WI2 [id number] [place] [id number] 0 [id number] POMCO [id number] Spo [id number] WORKER'S COMP [id number] Emp [id number] UMR [facility] [id number] WI2 [id number] UMR [facility] [id number] WI2 [id number] COMMERCIAL GENERIC [id number] [facility] G [id number] COMMERCIAL GENERIC [id number] ANSI-Commercial [id number] ANSI-Commercial [id number] ANSI-Not a Secondary Insurance [id number] ANSI-Commercial [id number] ANSI-Commercial [id number] ANSI-Commercial [id number] ANSI-Commercial [id number] ANSI-Not a Secondary Insurance [id number] ANSI-Commercial [id number] [facility] Commercial [id number] Family Dependent [id number] ANSI-Not a Secondary Insurance [id number] ANSI-Commercial [id number] ANSI-Commercial [id number] ANSI-Commercial [id number] ANSI-Commercial [id number] ANSI-Commercial [id number] ANSI-Not a Secondary Insurance [id number] ANSI-Commercial [id number] ANSI-Commercial [id number] ANSI-Commercial [id number] ANSI-Not a Secondary Insurance [id number] ANSI-Commercial [id number] ANSI-Commercial [id number]-[id number] ANSI-Not a Secondary Insurance [id number] ANSI-Commercial [id number] ANSI-Commercial [id number] ANSI-Commercial [id number] ANSI-Commercial [id number] ANSI-Not a Secondary Insurance [id number] ANSI-Commercial [id number]-ti7l-83ur-[id number] ANSI-Commercial [id number] ANSI-Commercial [id number]-[id number]-6sbp-[id number] ANSI-Commercial [id number]-[id number] ANSI-Not a Secondary Insurance [id number]-[id number] ANSI-Commercial [id number]-[id number]-[id number]-[id number] ANSI-Not a Secondary Insurance [id number] ANSI-Commercial [id number]-uujp-928u-[id number] [id number]-euew-216k-az5v-[id number] ANSI-Commercial [id number] ANSI-Commercial [id number]-[id number]-[id number]-[id number] ANSI-Commercial [id number]-[id number]-[id number]-0j54-4bh1-[id number] ANSI-Commercial [id number]-[id number]-cyp1-[id number] ANSI-Not a Secondary Insurance [id number] 62f973m 7t82vz5r-wx71-0n29-be23-4o9l287g447e ANSI-Commercial 66016w00-e4f4-6991-6n11-6179189sw55l 94960c94-y8k2-1792-3a41-3636183hc55v ANSI-Commercial bx49ykr0-3b34-1y82-8hr8-bn8f9o0jb2n3 cm24lla5-9n60-7b86-6eg5-pz7i1g7tb6s7 ANSI-Not a Secondary Insurance y8e7c5y7-95ji-2491-3430-13234 6q07988 p9e4f6g5-47cn-4893-6889-186451n67687 ANSI-Commercial k7583997-7586-9985-y4c5-ia9r2o3g0j24 l0880819-3000-8304-y1l9-oa3x6x3d7d52 ANSI-Commercial 3ub0fm96-3014-9jbi-75v8-hp1i7695grk4 1zf8ez96-8482-7oph-25t8-gz8x4514mqc6 ANSI-Commercial 515dtf4z-nd87-9d57-z35g-i6nr48p5z492 263nug6p-wi00-3l68-j83z-g9xw68i1v383 ANSI-Not a Secondary Insurance 2153w6t6-6o5d-86e1-j0d3-71jyl txo90m8 3922y5j3-7c8z-08g2-j0x4-29ptsvfw42b8 ANSI-Commercial 8y2m80j4-5uw2-1f21-7h5t-3629442e3359 0p9r11z4-0an3-4h68-8d8r-4506511p7212 ANSI-Not a Secondary Insurance z10804p4-p6kf-5dl5-lquf-geq8c 3vm923c f53429s4-z3pj-3kz9-htte-qyh9n9qy123v ANSI-Commercial 26910571-129d-5211-b5f9-pj3401o84765 55645523-219n-3990-b9k3-vu0629s15775 ANSI-Commercial 92496470-g8l8-3942-087i-4f80638rl29p 02441270-o6i4-9242-320a-6e45973lo23x ANSI-Commercial t873c594-pj45-37y5-m39y-ug8sa6d5n12y j323d680-es99-13f1-h24a-wb8aj1x9x28a [id number] SP [id number] ANSI-Commercial 9s532o7w-8v29-891s-7106-eng4ka830749 4a402s8m-8w34-261b-5988-fmm8hd828806 ANSI-Not a Secondary Insurance q7932g75-101o-50m6-8b6s-i130o 36vh014 i9759i74-449f-69o7-3g6i-v876d32sn036 ANSI-Commercial 5y9j3eu9-8977-2230-246p-600a6h70t690 4z3k8sl8-2663-6975-473k-441u0e53w138 ANSI-Commercial 6n30b429-vm88-2iby-66jw-3z3u503u011t 6y95q477-es15-4pbw-83bw-2f4z352g085x ANSI-Commercial g735j92d-a9d0-4046-9a2d-155sg45035ag a232w88s-u7h8-3742-7b2p-072ba44216xd ANSI-Commercial 05oz70ai-atsh-8b4d-6520-5750287l634h 51bd41gt-icpx-6j4w-5619-2986135l463w ANSI-Commercial 3h6235m0-6i24-7142-b96v-5l5l7796iiu0 3j3778l8-1r74-9683-r93q-9u1r8745web6 ANSI-Not a Secondary Insurance 64y66p8i-21e7-4128-t345-d6a7d mbu1000 90x34c9q-51a8-4240-z104-r7e5xwwp2627 ANSI-Commercial 961rnt35-m30s-87ya-2j27-k346591321iy 802ovg92-b40d-54ww-5g80-z466175898qu ANSI-Commercial f3814943-yxk6-76j1-ckx3-i6t62lsvm318 n6442535-zng3-91b2-gqx6-s1i16tjtj298 ANSI-Commercial 57c5k685-slr7-83z2-g280-2ai714kl2p0j 74u4z612-too5-25u0-t331-5za972wg8b3n ANSI-Not a Secondary Insurance 3z476463-3808-8qv6-o872-68k07 z8t159f 0h190162-0568-7ri1-n605-46e56n5i930q ANSI-Not a Secondary Insurance 15717048-49r0-3288-7632-0j55m 28499z4 00015859-40f1-2211-2473-7w40s15544z3 ANSI-Commercial w8567y71-1i08-6r66-bz14-9j07jb6c1868 w3263k13-2m05-5b27-du50-3v41ca4f2075 ANSI-Commercial 788qu2u6-g754-1v75-276a-y40163u24lra 789bu4l2-f020-6n81-152d-o48083w88qbo ANSI-Commercial 9885cc2s-853h-9554-yo1l-05029m5m9470 6241uw1y-993k-7216-pk3r-48219u5d0702 ANSI-Commercial t534356r-0685-81kw-z950-qej59h2463sa i322498r-7057-89qz-b185-tfs89t1069hq ANSI-Commercial 59rh2e7e-56a0-78r1-5190-8f2914a5175r 46is6u5f-43a0-55k7-9510-5v4186r2451x ANSI-Commercial 23rn760n-1zk8-38fb-3882-3090937d51o7 59zz498w-8zs3-38av-3097-5003005t89q8 ANSI-Not a Secondary Insurance 901v35f6-5dh3-2uqh-n368-gye27 gg85tgl 150b41i4-6sr4-4ncl-v904-apa48ps61hxb ANSI-Commercial 74z8m4ny-2364-62t5-wfbc-85y71u388z44 57i8q3vi-2109-63e7-zkgx-13g74f230m82 ANSI-Not a Secondary Insurance 4wg9o5y3-952m-9645-6a3s-503f2 7g253cn 8hg9n2o7-060u-4410-0e1h-452v93a687ce ANSI-Commercial u9zd33f0-e491-10w0-9335-46e32v69rf09 j8if22r1-k152-23b7-6425-95x92i17xz47 ANSI-Commercial 6z925s38-xv48-754m-0662-9zr54n2937mf 7q786j94-kz01-193n-0601-1zn34s6858xd ANSI-Commercial 2f973r15-71kv-1k1z-d0m3-6r90t82c28k6 7q411i13-80cp-4r0z-g8j3-0u96c93b30g6 ANSI-Not a Secondary Insurance 2tt5n3a4-0kq8-5967-6r33-73719 95s2w3w 2eg8k8v0-4xr4-1071-3a81-7844699f0f1l ANSI-Commercial m6j3nk92-50gf-6k49-3589-wfe52a8z8i49 u3o2lz80-58qz-1q85-4011-igl25l5h5n96 ANSI-Commercial 21aqgi87-53f0-3evi-jljh-00874y8hyq0t 55tklr09-77r9-2udi-dqlx-38152b9twm1c ANSI-Commercial 64787g50-s3c0-1755-40sy-711131hy1m10 76125k79-t1d7-0990-75ia-779308vf3i86 ANSI-Commercial n28326i8-dm39-115p-3k97-74k6i774x6ub c86597w3-qd13-590n-9b22-07v2r248g1aq ANSI-Commercial 731508ei-9w6b-403r-e094-7686m1n709t9 769592tu-3o9t-113k-r726-2014l8s755j3 ANSI-Not a Secondary Insurance 4945b71t-7508-7l54-tofx-p9749 5k68q2p 8068y70s-2774-7t89-uncg-g02328e47r3n ANSI-Commercial 65t4m563-c6y0-8012-m28m-0497m1td8e98 48d5o894-a8z9-1393-g13p-8141e4tt4t71 ANSI-Not a Secondary Insurance 5c478nvd-63o4-4535-6276-8sj19 p62j849 0g691mlc-63k3-3005-2968-7zz54u22i605 ANSI-Commercial 5g0v9574-42u5-7cd9-1128-164f107689gb 9m8q4102-16n7-9pm1-2859-199v981999jx ANSI-Commercial 96869k9e-4l77-0215-66c0-4etx7i293k52 48806w9g-6u46-4762-88o9-1kzu7u229q55 ANSI-Not a Secondary Insurance xryjen43-14hx-9b26-wx3g-1ttl0 73c76zy nyrhxw86-60zc-0e88-bd9x-6hay815d86tn ANSI-Commercial f72b9140-9657-286g-vdg0-06dh93l76598 z11p3665-5164-151e-pkn7-53jz03e05043 ANSI-Commercial 06v3s2ak-2r76-61f8-6d93-114n69j225z6 63y5t1bw-0k57-70x0-3y75-643b99y284w5 ANSI-Commercial 4860z5n3-9930-09jw-lw5b-2975c673o34p 1801x5s0-8805-68dn-qe0q-1907v009h65r ANSI-Not a Secondary Insurance wq638t66-bfxe-713i-1pq0-r2z04 3iu1985 ql787j81-fldd-953i-5re6-r1o977mc4498 ANSI-Commercial 2447z91d-7174-27s5-g7ph-d4fm24ww8m7v 6957o07j-4226-46w9-g6zx-p8cy86df5j7c ANSI-Commercial r71u3z87-xzmu-678b-2847-876u3447a917 k03i7y97-ywgl-944p-3947-559g0024c904 ANSI-Commercial a0n08x3i-7n45-6376-f16s-jy970680x91q w8q27u5w-4m75-9991-w56l-oc351877n54x ANSI-Commercial 3da91750-5150-47b0-crkm-e9tm600fj36y 1hb91953-6172-05v3-ljom-y1px500nw17s ANSI-Commercial f04vl6d0-409v-28rg-4a16-00n44medygw0 f32uu8u0-403w-20wa-6q53-03u81pdmukc2 ANSI-Not a Secondary Insurance zwdx19yj-0798-4a35-9154-t1vq8 7h1c4l1 ipvl14nr-0115-7g10-8794-g4wr43r9g2b4 ANSI-Commercial 5za7c7mg-q869-2h37-06bw-p6c50a952518 0ks3r8hm-l482-0l23-98af-z0w59n070128 ANSI-Commercial a3q4j114-4esw-63w3-lb1e-i030977s0ivw a5t5y774-8vbp-78s8-ir7d-a102953x5tse ANSI-Commercial 2934e00u-439x-8hr4-12b4-0z2w4k307025 8592s66k-843p-1ey7-22e1-6g5w2x712245 ANSI-Not a Secondary Insurance 57420oy7-nw96-4294-5e65-8564t 479153b 47685an3-lo20-9538-1j98-1220s646091j ANSI-Commercial uty957gp-41pk-65ye-6267-cs75179t8152 rwt036hj-50xg-39dk-5513-ca45260m6469 [facility] [place] [id number] SP [id number] ANSI-Not a Secondary Insurance q0p313k9-f0x6-352r-2o57-0me7y s272z42 c1i535h9-o1j3-692u-6d39-5la3rw644w02 ANSI-Commercial i3c50319-50eh-20t6-kv03-1wv276lzv28r d9u13094-40gs-54q7-je06-6ja601afz19m ANSI-Commercial 125sja01-a7s9-6r33-b320-4229b0939238 697uok59-b4o6-4x85-i620-9659k8981548 ANSI-Commercial 4wrhl53g-b17a-7k8l-sghh-1glj8257966c 0kptv43n-t43t-2g8z-itzp-2smk9409407v ANSI-Commercial s41b95rk-p0o2-173v-4kf9-kv0yu2969u14 l13h02fu-b1c4-241t-5gu0-gm5yt6268g93 ANSI-Not a Secondary Insurance 8x271r47-6828-5pwt-d4m8-534u6 00976q8 7h046b92-5564-5axq-f0b9-093d046335i5 ANSI-Commercial 3445oc35-2pj7-8713-h0fo-ku7i4jy33n2g 4144ks67-3or0-0103-u9mc-ly4y8qo63c1x ANSI-Commercial q4o58b0f-vu24-9454-278x-dzs2t7o7936e r7p30q2f-sz61-2638-358f-upd9z3e3019o ANSI-Not a Secondary Insurance zk68el0h-u3ec-6316-ilpk-m5szr lic6u45 xs53vc4e-c2nt-7783-uiyo-g8rheanq7j01 ANSI-Commercial j5f04o73-2768-7113-22j3-5cj9365u640j y0h46b70-9964-2367-33g0-5pp0629w692u ANSI-Commercial 6905y309-w18f-9c6l-y15y-6qy603428z5o 9005l400-g43h-3q7q-g88c-9ef544236v2x ANSI-Commercial 7t68887n-db84-1w8d-h344-u36rm1a5z200 9a78243x-ku44-1c7f-m420-v53le4q7d142 ANSI-Commercial 5nus4590-2av9-22m5-hfbc-4400067ng9i5 2sgc9633-3fr2-29x5-ehxl-4512859eq7k4 ANSI-Commercial 1hq5716m-9og5-9657-m536-wc29qm5hen07 9vr7684z-3kz6-5044-y479-fl78zo5guw45 ANSI-Commercial u1h7p6e3-709z-8dhp-073s-ew87s7azau7s j2u2s3d2-469j-9frw-042y-nn12p1zysg2t ANSI-Not a Secondary Insurance 2487h1o3-97ik-0r1n-mpg0-1y232 e7f873p 8274n3n8-00bm-1a7y-xde9-2o667d3z680z R O [id number] S [id number] ANSI-Commercial 38f7v474-37q2-043p-ua16-l0y9710p82d4 47g6i256-46d4-075u-xu91-t7q3741d38p8 ANSI-Commercial 78kaq507-7gp0-3372-w4im-80785vc87v48 04xvd566-7xh2-6998-v5ya-15268dd91c52 ANSI-Not a Secondary Insurance f1741453-hul0-7ql6-3035-09v5f ly4ivh7 q9896831-cns5-4bx3-3796-08w2baj4zct6 ANSI-Commercial 40m17681-6e90-9859-29n5-m1s0f82p2fcc 21f11562-6a96-6804-12y4-x1t8h27k5ymn ANSI-Commercial 1g0s7hrq-3r92-805s-1547-99i41trqo2o4 2v7w2hfn-9p94-249q-8054-35m64wfqi8p1 ANSI-Commercial 9kkh33q7-5k7f-22z8-5238-83c76aljx6b7 0eql36s8-7l2k-57r0-8965-24r81atqc1a0 ANSI-Commercial i578sm12-ed57-14hh-e8s1-51r575v8ksb9 a894wz74-iq39-02bl-u7w3-51g586q6lso7 ANSI-Not a Secondary Insurance 639i941k-2229-1q21-7871-6o207 591ey68 040v998a-9563-5m15-9916-7i640784cc76 ANSI-Commercial j5i91p96-8x70-6i5v-6316-6b2osp4uk497 m0p12m81-8y45-3v0h-6780-8q9qle5os456 ANSI-Commercial x723006a-4b64-09u2-5005-48c0m21l2h28 z554202t-7f45-58d9-3455-63z8n49f6k74 ANSI-Commercial q2dh1w0o-000s-5xs7-241l-5804x155ko60 u2pc1h6p-905a-1mu9-704c-6351m408vy28 ANSI-Not a Secondary Insurance vk0nmr14-u86q-08t9-47c2-0y635 pf50943 bf3mrn70-r36e-04y9-51f5-1v843us47313 ANSI-Commercial da5xg499-vy3g-456p-06yt-26g0x7529h95 oj5oh815-qo9m-037c-10hp-24l9t7377f51 ANSI-Not a Secondary Insurance qtfbbo4i-k70b-9k15-3d18-wgfv8 v2xa881 fqowld8t-g31g-2c23-6b20-rjus9o8sp369 ANSI-Commercial h787230i-m826-3405-55x5-60i43g74x115 w648188c-u409-9322-10m6-54e51a29m363 ANSI-Commercial k1296e14-581j-46r3-zp6o-2k04669o0lw4 v6655b14-922t-53w4-bv4e-3e41635o1nu4 ANSI-Commercial 6n3t5707-xzws-6445-4k82-1gq89k63mwo2 2b3x6366-ewkn-5574-3p94-7xe80t63cpw4 ANSI-Commercial 4avsfn54-61jc-5ns4-2749-14p5507c92b1 8efaoe00-82jh-9ld0-4047-88b2561v33x0 ANSI-Commercial j0s8fy57-82y0-2z30-yxx4-2820xl4d1p96 t0t0mk41-40b5-6j16-vtr4-8427fi1n8l58 ANSI-Not a Secondary Insurance 997817ax-2ddw-05me-399s-8rkty r29yb06 498451il-1qna-52uu-305u-4pbiqt47xq50 ANSI-Commercial 780d6xmy-m698-5342-yd51-g94bj3k511s6 924o6iys-y222-0596-nm48-a95jt5w859j8 ANSI-Commercial o2z1588h-v57o-656r-c6c1-81a94pr58s59 v2i9721n-a17y-899l-g5w9-81b75hg55p86 ANSI-Not a Secondary Insurance 1hbj08ud-2d2h-710k-7m21-87633 odp6208 3aep05oq-5e0f-705n-2j56-67796lhk6332 ANSI-Commercial 84059h3s-7677-6513-qg27-21755dmm7sa5 77189v2b-6063-0502-pd83-75956ltf7ax1 ANSI-Not a Secondary Insurance 82885457-r815-07pd-j1k5-79338 3wdl64z 37168676-u577-88fm-r7t0-602943crd23b ANSI-Commercial ps2869v7-3o76-58iu-37k0-6kjq8178s0g6 qh7744i9-0h22-35ig-37c3-6qpp2039w7m7 ANSI-Commercial 2x253l99-2p31-205w-1s03-3l0136s59722 9b585o58-2p23-138y-5y22-9g2064l01082 ANSI-Commercial 5l9b9k03-4l46-46qp-38r7-w5y4y8c86uvu 7g9u9r47-3r34-66ip-87q9-d1h0c7t08glp ANSI-Commercial 3g85tqcu-58b8-3c05-r6qh-y2w5z63k1l75 0h81bmqi-10j0-0i12-h8sj-w2e2g22t9k47 ANSI-Commercial 59wyg34y-q09j-4f12-x650-bnnna7iu3y00 11rhh53g-v04p-3z53-n490-vdpsp7lf7b92 ANSI-Other rt2y8610-414h-4274-bss1-4979660a6j22 zs2t5437-944r-9856-vkm1-9207963u1f18 ANSI-Commercial 95572512-6v4y-3u8x-0a16-xo879xk4o188 93939409-3x4z-7n3q-5l55-zp285de4r857 ANSI-Commercial 8q9ts3m6-7th7-92z7-4c60-1a7408hk8049 2a8si0d9-7uu6-45j6-9u75-9g9557py0069 ANSI-Other 9f7gw632-5q59-095x-ft80-aq4f09y6v846 7d9lo149-1u77-068c-cg80-qa2g24w4m444 ANSI-Commercial 7jbn6229-162t-6kh8-ga8x-u762w990p924 4you3132-442k-9od9-zf1n-s804o841p396 ANSI-Commercial 999ed4n6-6b40-929c-35m2-9lu03yyfo2gx 553nw2p4-9j68-265z-39v8-3zl70yjzc6fh ANSI-Other mq708b0w-83rf-6b92-3x52-4z890a239365 vf807r9q-26rs-6p44-5y27-0u769m308932 ANSI-Commercial 8i6686rq-c4cm-080m-v743-no460121220x 0c0185el-v3we-370x-s074-mo826561376q ANSI-Commercial 942043g2-125y-8600-49pi-h26c9fe8c326 762275s5-213b-8783-46iv-x08o8bs6s239 ANSI-Commercial 0r38986f-8440-2c28-ysow-8v376714z7on 9x91764e-3758-1t05-ruhr-1t314959p1ey ANSI-Commercial 615zkmn5-61z3-224m-s903-n0zm9389n670 807acbc7-58h3-215w-i788-k5kr8087a056 ANSI-Commercial 7357g4k3-x7cs-4e1r-8352-8934b8l1c7m9 8798h1z7-j6fz-1u3t-7937-8487g9s0k6h8 ANSI-Other 58340359-34g3-35e6-1wl3-695u8h9gj082 29204100-82n1-57d2-9jt9-471m5m5jv670 ANSI-Commercial m9615d42-4u72-2rk4-fmbd-17933z4ny6m7 s8464j41-6d36-3by5-znhh-16296n3kn1j7 ANSI-Commercial 5o6m3f3r-c712-9d1g-aj5u-ap9c646z3328 1a1t7i3l-p595-8s1o-mw3r-ap6c358f7943 ANSI-Other ykbd6s24-je5w-2102-f4t6-98we821466x4 sduj6e53-wd3m-4484-i1x4-81xi402656q2 ANSI-Commercial vt753889-o122-7063-4893-z03o9m3qi331 ct980646-h120-1377-2558-u77q5h2gj881 ANSI-Commercial l69366b1-2y66-818k-5i0t-71auw9949129 z76585z1-8a39-587v-0x6s-28plt6758736 ANSI-Commercial l2fb91c0-v6i8-5umx-kf4z-4w3s2w2po3ox j8ye03j7-t3f5-8ooa-mc2h-7h0q1u5su4vg ANSI-Commercial 766f0fvw-7204-5wy5-gggr-36t8782j25c2 356y6fzc-8147-2pf4-avne-61u0304c17e4 ANSI-Commercial 5503g368-c5gc-40nq-4t4n-2sv725u71224 6617t918-n0mg-58nr-2r7m-7sm793x92070 ANSI-Other 751h6694-aflb-220x-2085-83075187m105 229c7315-xpod-515d-1041-80924824g452 ANSI-Commercial 284k81ww-0810-9699-bv18-267b7748n80u 454n69vd-7271-3573-rc20-966t2919n24y ANSI-Other 8g8y0k2u-00av-3jvk-32l2-w3p578fg95r7 6v0t9m7c-64py-8pgl-23e5-f8p863nx64b3 ANSI-Commercial wyjmw6z1-8695-81g7-6303-4pao53tsrx7n kzbwt1l6-4392-73c4-5658-2ygw47cvjq6b ANSI-Commercial 1pm1608t-0674-8d9u-so99-973o905u8mw9 8ba8990r-5601-4g7x-eu13-828i847y9db7 ANSI-Other 3889j2t3-91se-91r8-hu44-06pvi0vj1003 1126e4g2-51st-60x4-fr02-76lci8qx6457 ANSI-Commercial 4t7w5j88-em39-48a5-n5y4-ptdc487723ii 1w3r7o65-kw52-30j0-w8x7-szzn071340tp ANSI-Commercial 6i1ur792-tsi4-9fe3-91jf-42k775800xs0 0q2ot504-juv9-9il4-91uz-42r656316zh0 ANSI-Commercial 98g8a57d-p898-96d4-30bl-p9bi94b9hx7i 18y2n98b-e494-04k4-68aa-j8dy46j4wh5y ANSI-Other x2tn0575-f891-0139-j8g8-l0imful0l16h g6pu6322-d901-0349-f5r5-w5zcufe4m44g ANSI-Commercial 076d2nku-zu1t-3796-9o1h-2x2c946l59i7 265c6emf-uq4w-7012-6m0o-0q8y890t20b2 ANSI-Commercial 70ps2y9c-500l-5684-xmp3-3wh644571w51 79jx4i7z-207g-0690-tys1-8xo148045r21 ANSI-Commercial 7t396q76-et35-1561-915v-336j930595cu 2v459x39-iv11-6200-794c-927e776754cd ANSI-Commercial 3093h5s8-5598-68ec-2q82-1c19313754a8 0104l1z0-4671-68dt-1g67-3y14377427y8 ANSI-Other 2878a5t5-3h73-1345-9v6t-3tu13k6ljq78 3765c9x7-9i25-8244-1m5o-8to50g9qyf57 ANSI-Commercial 65t75288-1855-8o1y-w2u1-1l491bz52242 66b82291-0931-7y3r-v4e3-5s889et03087 ANSI-Commercial 9ih06v6q-t1qm-3452-2u6b-b153s5c7339s 1zy88l4s-l6uj-2415-9z5x-p651l4v8225g ANSI-Other 7nl73g26-61c8-0wi4-nvvu-11zv9i2vf308 9dw03b77-85g6-4vd3-jhkq-75hk9t5qk822 ANSI-Commercial 273981i8-69vf-4246-ik50-764y4v336i9v 557804r2-71zp-3215-vp84-657s4f346a3q ANSI-Commercial 7dw22446-748z-9plr-qvw0-8p41v3v9jo89 3lz24555-616x-9nqq-quq3-6b77w7j6le57 ANSI-Commercial 76046331-uf8h-14uf-1y5e-5qh17fk82dri 47762250-ae4y-07cn-3i4r-6uh50dk96xfd ANSI-Commercial fih5rx84-2b19-8m49-2o7m-1vv29548qnwi xmq2ty72-2y01-3d32-2y0b-2tx49264faib ANSI-Commercial skg19f3c-o222-896k-l5a6-54pqt3f8z856 mrx55n0g-l931-708y-k4h2-12mgo6e8h087 ANSI-Commercial 8b21p8s7-o096-3k47-rb8v-w3064s0f9iu3 6g85p5c5-v271-1a86-xi0y-y1033z9u1fm3 ANSI-Other 689h9e65-3w78-6q64-dff6-2craiv4v833p 377m8u64-8b39-7o46-gdb6-2ephvi2x593z UMR RISK MGMT WC O [id number] S [facility] F6521 ANSI-Other 1i28130b-670n-2823-2fhp-29j8zk170dm7 3t22408b-516j-7435-0tos-77d6ch774nq1 ANSI-Commercial 87272w41-qt1t-38l4-0387-2878bi244021 56803z05-kg3x-29x8-0042-2232yk205819 ANSI-Commercial 6s77a56r-q018-45di-4o2a-16h58540ib52 2n12x02x-m444-61hi-7z0x-23a77384je68 ANSI-Commercial 82m5j749-49g8-9320-ukkg-56f06823585o 26u9g776-07x9-0155-fsqd-18g69479460o ANSI-Commercial 7t8x231q-9w91-0u15-f9jg-3y5z53x74h7b 8f6x816d-8c60-6j41-u7tk-6m4q48t93n5b ANSI-Commercial d24q4m4f-6md6-7607-o7a3-04ue97433291 a63p8t5n-9vg1-3275-f3w7-97qp39531236 ANSI-Commercial f15i87ql-r600-1950-u9j2-99e31c6n7af4 i60h51ev-t556-3589-s8w2-16h29p5i1nk2 ANSI-Other 29t040t1-4y43-7f9w-41s3-24o8p449k7y2 47b374c6-4w29-8p8h-80b1-30f3e054b0g1 ANSI-Other 90k67ln1-q4qi-6455-j62u-7cl89hr48760 92d87up0-q7wd-1707-p79y-5tu94wg39394 ANSI-Commercial aj373r41-6770-0f9z-y224-6070s2283044 qz968a73-4612-6n7v-d977-1134p5522810 ANSI-Commercial bt156o65-t29m-6948-0ck6-2uc7400n9rj6 fi053x87-k60m-0434-8bd1-8ri7195k7ow3 ANSI-Commercial g996ony2-115b-1qfk-yh63-ya6y36uh6677 z189jvb8-528u-6htn-vm72-dv1y27fy5343 ANSI-Commercial 19i3t002-0785-8ns7-sl15-93574zk7787z 73t6l830-5935-7py3-ko51-99584gz6021u ANSI-Commercial r61jk5uy-55q9-5257-1232-w4531qbwxa97 y94rt2do-42o8-0891-4546-c2445vsins45 ANSI-Commercial v1888094-4ty3-947d-91qh-1p3rt7k606rj y5873908-2ao9-145w-67an-5u6lh2u175vx ANSI-Other y3hj7r30-47ix-3038-8807-b399j1g3371h z2sd0d97-76wb-0560-5563-x083p5o9180i ANSI-Commercial 1tn5xtz1-6103-3gg8-6rw8-14i47pz20sq0 5em3gkp0-8330-2vz2-7eu0-56z35fo45ee2 ANSI-Commercial 2518q8d5-3305-0726-a0i4-k76pg66223b3 7244g8f0-0154-6642-n2i2-z78pl79820k0 ANSI-Other 5jv903o2-05d8-7pd7-1023-4j9l32ne9hk8 6cr141o0-91v7-9le0-9513-6r7l91fv5xz2 ANSI-Commercial ekb50fgj-9ppr-14m0-9k6n-33m849w6938c ycp87uta-0ijp-17r8-1x8h-61b014c6302e [facility] W/C [id number] SP [id number] [id number] [facility] [id number] [facility] W/C [id number] SP [id number] ANSI-Commercial y2p3w058-m1u2-8748-t7a2-0qzuq450899m i1z6h932-b3s5-8980-p3z0-4sylk325796v ANSI-Other l7h28a79-g24i-85f2-91o4-h60423dmw26t r8x92c43-c28h-00z6-99x1-v39619ncc58k ANSI-Commercial p853d215-20lf-2s6o-f2rg-dv7a91zjqw3g r882y526-76cs-1g2k-r2fa-mc1i75geiq4e ANSI-Commercial 59s6f0a1-5dpj-3586-140a-120p722w2414 52a0y5p5-7hil-3438-834o-998m256r8608 ANSI-Commercial 2mr267n5-5q4f-41jv-by83-90280e0441o7 8mv168j9-9c5f-86wd-zr79-47125r4629b1 ANSI-Commercial 9jm8d0d3-yvb2-8o08-s8yj-964z019qu47v 2kz2h3n7-mkh4-0d00-j2wd-816h582cl53j ANSI-Commercial 495733r5-7j04-38qc-vqr6-i6b5m846f438 551326j8-5v01-87yf-sdn1-p8c8a785h910 ANSI-Other yx7i50t6-0e4t-3181-4jv1-8836nw7oc1f5 yx6i66j4-6h4t-9447-9wb9-1155ow2wd0g2 ANSI-Commercial c1o3fl9d-9738-972r-793i-3j82h3460080 f6c3pe5r-1665-789a-467l-4e67z2620020 ANSI-Other f52048z9-9z65-7781-7w48-p273nr80xc37 r80108u5-1a65-5004-5k41-l162pz37of59 ANSI-Commercial 9syx4lbc-2j5e-5524-q117-6667tbp5zp56 8vaa9acr-0z5b-1015-r315-3972ern6kf84 ANSI-Commercial 3i249838-vdf2-3f2c-1324-29110nnq2dh0 5v532498-kzz7-5m7t-4870-12386lsx5ax0 [facility] Medicare Commercial [id number] 7.0 Self [id number] [employer] (WC) Workers Compensation [id number] 2.16.0.1.703926.3.227.99.104.854514.0 Self [id number] r [place] Part B [id number] 2.0.1.051444.3.227.99 .104.085808.0 Family Dependent [id number] ANSI-Other e3682b0k-3n5j-34cb-m6zy-4e3ed2y2p25s j7882k6s-1y6k-24nv-e4ht-5h0hk9p7s48g ANSI-Commercial i232c0a6-f2vh-2224-9vp2-xv5hx74b777o o972p7h8-m0ig-4918-7op7-pi9mx47r226w ANSI-Commercial z40327l8-4bn5-8b0w-96o3-8836cy9972g1 u84570j0-5iv7-0n3m-55k5-6620xp6518r3 ANSI-Commercial 0703500q-1v04-5xj1-c630-2tdaoe96s986 1252800l-8o34-2gk1-x378-0luhyx05r692 ANSI-Commercial 855g3s64-m771-5d1o-916o-8651737746f6 684b6w66-v941-6y1c-950c-5451780237r9 ANSI-Commercial lw356976-h8cj-78bm-i361-ue254ffa25po bc495134-y3wx-88pv-x175-wc590cny31yg ANSI-Commercial 56066j93-8255-3974-197v-2d02452m32v5 23751v83-7783-2327-562y-0l66988x26v9 ANSI-Other 498h1539-a943-8m0v-tv95-4mx4x5d81qj4 537g2838-m298-0r8h-mw56-4ok7q8f56ul1 ANSI-Other c15y6g07-4845-2n42-t1kn-6dlr17e5ojor t46w7i25-3745-5y85-l8fe-3ulw61h2urcg ANSI-Commercial t76p64d5-0196-4189-l5y8-1gj8j3n536ms r66c41w9-3733-4675-g1z6-2ie4u9r662jc ANSI-Commercial 4239e78w-81wp-34h0-f36g-68623677er42 4849w84q-33nu-31a3-k56w-29422009pz23 ANSI-Commercial 88dz8h13-iv9d-8k5e-p432-90d9382h7t4x 29gp8w11-os9x-5u2l-o981-46z7383u4q0q ANSI-Other 2070lq82-8120-8396-qb56-56673ne26069 1681nt39-7055-1732-ux20-92818xt53559 ANSI-Commercial jnqpia0r-h63n-5745-6053-8997toj9f2e8 qfxhys5u-c58c-7971-8822-3254xth3p2a1 ANSI-Commercial a1dc5096-r379-1h31-j989-o8764z05qxem l9da5616-j153-3k31-u827-l0670e29shaz ANSI-Commercial 2s776gjk-4612-8t87-ta18-x729p562ms99 8m013oeq-0684-9d57-gb63-i465c622yl77 [facility] [id number] UNAVAILABLE UNAVAILA [facility] [id number] S 1 [id number] WORKERS COMPENSATION [place] [id number] S [id number] ANSI-Other 25lbi52a-01bj-78b0-4362-x48jge62ah59 24wee66g-66nz-35f3-3117-b59wpf17vq98 ANSI-Commercial p937zqc9-w41l-4b89-0xt5-upf00626ing5 b250crt0-k92p-3r44-5ka4-srr07146oyw9 ANSI-Commercial 16964166-5khs-0b02-0009-y3m6u38k0o09 68846574-5qxe-0y21-9674-q2d8f60z6i97 ANSI-Commercial i0b22526-8214-8k2b-l8m6-80k9871mw57h m2y63645-9595-3e6n-y5r7-56n3388er25l WORKERS COMPENSATION [place] [id number] S [id number] WORKERS COMPENSATION [place] [id number] S [id number] ANSI-Commercial 206218ya-7b06-0e3c-w232-e8i58h56lh8u 420785jw-0d43-4u8s-t876-m3z60s16lp2r ANSI-Commercial 2p683w8v-93c0-4237-r290-086ut8nu0494 0z335z5l-13t5-7564-j918-032rb1ra1782 ANSI-Commercial vd5r274q-k227-0047-h925-y74j1e230029 qk2h977g-r925-8810-r291-q94r7j258371 ANSI-Other 6q6j0759-5333-577s-vg99-073682g03cnh 4n6e9118-1967-851l-rc73-362071l68mmr ANSI-Commercial 062229uk-67o4-550q-752n-et1c3224sliv 879376gw-92w1-218w-346d-ls1q5122htmq ANSI-Other 99r849r5-407v-7531-akml-3u181392h6po 45e915a1-606e-1180-axtq-9i965530l7ex ANSI-Commercial 26bk2fhk-b605-2893-zf4h-j9vz1y4m383l 35et8lvr-x219-2574-tc5e-w2sf9q1h147m ANSI-Commercial bjr23v74-4pj3-2r71-8801-7x869e7h24qg njc88p65-3ui8-5j42-3065-6y499p6y20yr O UNAVAILABLE UNAVAILA BLE ANSI-Commercial n125e508-6314-2010-t153-rk72l8tou1u2 v465h765-0439-9162-g282-qu98a2goe2e3 ANSI-Commercial mcxn63bj-811m-1xba-mo95-940134a8886v lvfb87xd-915o-7mvr-bn79-037031c5371h ANSI-Other w4ba9606-7q09-638j-8h09-1a27n0e9p6re r2xl9494-8d10-117j-3c66-4n09v6m1e3xn ANSI-Commercial 2092ix91-p9x7-9h73-43dt-z6u5vf92u155 8711ns72-a3b9-4w82-76sk-w0j8bu84f258 ANSI-Commercial t62515s9-w4o5-5tgj-306u-026onw973762 u90476d3-g2r6-1whp-928g-209dav836917 ANSI-Commercial uv7680jp-67xl-6276-e3y8-194i503e0n50 tp9191ph-23es-4599-k6h6-773p056f0h54 ANSI-Commercial 6e44wcfv-075x-7vai-6id2-7wr028is3nlt 9z80cvze-517t-6nbw-8ji7-8pg848id3flt ANSI-Other 1o1904q7-5604-0ui2-0tx3-mr297561g994 8r4732w2-8575-5qz0-3ne0-fk270201l537 ANSI-Commercial 06v035e1-fl53-31zn-6896-ce302mi3v29d 34d739l4-wk65-33ow-9000-dn775af0h60b ANSI-Commercial fz2h2608-0eyl-90a6-f565-8wz12s99ng2m ae3v0452-1zzi-51g5-u250-6av70l29mp4g ANSI-Commercial 3v2z9152-8633-8hk7-ygm3-ai2foe5y6x3k 7c4y0280-6533-6ur8-xcf8-av6tok1g2o8r ANSI-Other y6022085-a537-9161-f1k9-bsmv9i0nqd2x j1368776-c464-0424-k3t3-flmo6m3sxk8f ANSI-Commercial 42rt5h6x-0482-54u6-57u0-7q39632rc041 31nk3h1x-0234-39b2-71y9-3j04453he846 ANSI-Other tn895127-5u0s-4366-gbm6-3mr9ux44i778 ja094472-2b9e-5731-ddq4-5vy7jw48h377 ANSI-Commercial 726926f6-1i74-88c4-ntyw-s883ba1s0uv7 168628t0-0e18-61z6-gnsh-n726ln4b0it9 ANSI-Commercial 7o3lrn8d-rgd6-45x3-uu26-3383x845v598 3e2afw1y-gdi7-91w4-nq13-1632w287k833 ANSI-Commercial j886f582-37nd-754d-9270-1741o727cy07 a334l543-39dm-955k-8241-8546n696cc66 ANSI-Commercial y0i84ah8-wgut-8az6-o381-06b6207542s1 m5m85ul6-rkvr-4ej7-c096-52z9807496o4 ANSI-Commercial 6821632q-q4am-2t39-2787-785464fzn6e4 1390203n-x0uw-7o50-9435-200431skz4j3 ANSI-Other 897286jd-a998-7j36-6i71-b960k80cf6t6 487944gj-r317-5h01-6n81-j388a53lm8e2 ANSI-Commercial 7y331336-36m2-03p2-uq69-8ub40c903bg0 9g965933-86y7-41f9-st80-0be44k063qv1 ANSI-Other 2pz4501s-05n4-9d33-9k8a-356q42ri8n15 9hz5338o-31y5-2d94-6p5p-650b02sy5w53 ANSI-Commercial 768x5qe0-2100-722q-ql3c-f20c0964tbxw 126d3bq6-4339-554r-zg3t-v56k6225pdmu ANSI-Commercial c6l7h7p0-5580-9466-6f99-297049i58819 f1f6e1h0-7770-7639-0s35-396212r67582 ANSI-Commercial nk050279-k480-2hqh-q498-57w17015h7s3 mi662185-l056-6fzs-d311-34h97101z4v6 ANSI-Commercial 9q2227c9-acs7-207d-6441-86nmrv34i9l5 5r2192w3-frt0-952b-0576-85edxq21s8s4 ANSI-Commercial 4784o6d7-c0j7-8hz0-kv13-416y5ug75719 7144r9u1-c4c1-7vq4-uu54-325h7vy51474 ANSI-Other 99t7370z-1h58-5of2-q5uy-os9tn0b753i0 94m1028q-5b74-3mp9-e9bg-ai9mt1x777z2 [facility] [id number] [employer]/C [id number] SP [id number] [employer] [id number] S [id number] WORKERS COMPENSATION [place] [id number] S [id number] [employer] Commercial [id number] ..840.1.482119.3.227.99.9 36.28161.0 Family Dependent [id number] [employer]/C [id number] SP [id number] [employer] O [id number] S [id number] [employer] [facility]/C [id number] SP [id number] [facility] SELF INSURED [id number] SP [id number] [facility] SELF INSURED [id number] SP [id number] [employer] Ppo Commercial [id number]9.4 595.25398.0 Family Dependent [id number] [employer] O [id number] O [id number] [employer] PPO O [id number] S [id number] SELF PAY UNAVAILABLE UNAVAILA BLE [facility] [facility]/C UNAVAILABLE SP UNAVAILA BLE [facility] SELF INSURED [id number] SP [id number] OTHER WORKERS COMPENSATION [id number] SP [id number] [facility] SELF INS P [id number] S [id number] [facility] SELF INS P [id number] S [id number] [facility] SELF INSURED [id number] SP [id number] SELF PAY 2 UNAVAILABLE 1 UNAVAILA BLE [facility] W. [id number] SP [id number] [place] [id number] 1 [id number] MEDICARE [id number] SP [id number] [employer] PPO 2 [id number] 2 [id number] [employer] CLAIM ADMIN WORK COMP WCB# [id number] SP WCB# [id number] [facility] [id number] [facility] [id number] JARR[employer] CLAIM ADMIN WORK COMP WCB# [id number] SP WCB# [id number] [employer] CLAIM ADMIN WORK COMP [id number] SP [id number] [facility] [id number] HU2 [id number] [employer] CLAIM ADMIN WORK COMP [id number] SP [id number] [facility] [id number] SP [id number] [employer] CLAIM ADMIN WORK COMP [id number] SP [id number] UMR O [id number] S [id number] J[employer] CLAIM ADMIN WORK COMP [id number] SP [id number] [employer] [id number] SP [id number] [facility] [id number] SP [id number] UMR [facility] [id number] WI2 [id number] [place] [employer] O [id number] S [id number] [place] [employer] [id number] SP [id number] [place] [employer] [id number] SP [id number] ANSI-Commercial [id number] [id number] ANSI-Commercial 8739ci71-quu3-74z4-c87z-2163u6v12940 5542ul42-vqp6-63k7-f29g-4091m0h51810 ANSI-Not a Secondary Insurance [id number] [id number]-14z1-354i-[id number] ANSI-Commercial g8gi6896-1r06-87l8-5y2j-q9hr15vgu7s1 b2ru9207-2p71-08g3-7b5k-q1vj18vhx9f2 R [facility] [id number] SP [id number] ANSI-Commercial 3z6d73o2-0r1j-055e-h74j-8b75b215sv54 7m6h23i0-5t2l-593s-k31c-9s95m502kh30 ANSI-Commercial 1s90ax89-5a13-83z7-0q0e-01p6rwg76127 2t58xc61-1n78-31b6-4f7f-59f7eru86980 ANSI-Not a Secondary Insurance [id number] Problems, Conditions, and Diagnoses Code Display Name Description Problem Type Effective Dates Data Source(s) N18.30 Chronic kidney disease, stage 3 unspecif ied Chronic kidney disease, stage 3 unspecif Diagnosis 08/14/2021 12:52:49 [facility] G47.33 Obstructive sleep apnea (adult) (pediatr ic) Obstructive sleep apnea (adult) (pediatr Diagnosis 08/14/2021 12:52:49 PM [facility] Z95.810 Presence of automatic (implantable) card iac defibrillator Presence of automatic (implantable) card Diagnosis 08/14/2021 12:52:49 PM [facility] E78.2 Mixed hyperlipidemia Mixed hyperlipidemia Diagnosis 08/14/2021 12:52:49 PM [facility] I10 Essential (primary) hypertension Essential (primary) h ypertension Diagnosis 08/14/2021 12:52:49 PM [facility] I50.20 Unspecified systolic (congestive) heart failure Unspecified systolic (congestive) heart Diagnosis 08/14/2021 12:52:49 PM [facility] I25.10 Atherosclerotic heart diseas e of [place] coronary artery without angina pectoris Atherosclerotic heart disease of [place] Diagnosis 08/14/2021 12:52:49 PM [facility] F17.210 Nicotine dependence, cigarettes, uncompl icated Nicotine dependence, cigarettes, uncompl Diagnosis 08/14/2021 12:52:49 PM [facility] I25.5 Ischemic cardiomyopathy Ischemic cardiomyopathy Diagno sis 08/14/2021 12:52:49 PM [facility] Z23 [id number] Encounter for immunization Problem 12:00:00 AM EDT eCW1 (Formerly [facility], [facility]–1983) M40.37 Acquired kyphosis Acquired kyphosis Problem 05/16/2021 12:00:00 AM EDT [facility] ([facility]) G89.4 Chronic pain syndrome Chronic pain syndrome Problem 05/16/2021 12:00:00 AM EDT MEDENT ([facility]) N18.30 Stage 3 chronic kidney disease Stage 3 chronic kidney disease [id number] 02/09/2021 12:00:00 AM EDT [facility] L89.152 Pressure ulcer of sacral region, stage 2 Pressure ulcer of coccygeal region, stage 2 Problem 02/05/2021 12:00:00 AM EDT eCW1 (Counts include 234 beds at the [facility]) J44.9 [id number] 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 Problem 11/24/2020 12:00:00 AM EST eCW1 (Formerly [facility], [facility]–1983) D75.89 [id number] Macrocytosis Problem 11/24/2020 12:00:00 AM EST eCW1 (Formerly [facility], [facility]–1983) Surgeries/Procedures Procedure Description Date Indications Data Source(s) Medication: Silver Nitrate Stick topically 08/08/2021 12:00:00 AM EST eCW1 (Formerly [facility], [facility]–1983) FINE NEEDLE ASPIRATION W/O IMAGING GUIDANCE 08/08/2021 12:00:00 AM EST eCW1 (Formerly [facility], [facility]–1983) FINE NEEDLE ASPIRATION W/O IMAGING GUIDANCE 07/30/2021 12:00:00 AM EST eCW1 (Formerly [facility], [facility]–1983) FINE NEEDLE ASPIRATION W/O IMAGING GUIDANCE 07/06/2021 12:00:00 AM EDT eCW1 (Formerly [facility], [facility]–1983) Medication: Silver Nitrate Stick topically 07/06/2021 12:00:00 AM EDT eCW1 (Formerly [facility], [facility]–1983) Imm: Flublok Quadrivalent 18 years & older 0.5mL IM Influenz a 07/04/2021 12:00:00 AM EDT eCW1 ([facility]) DEBRIDEMENT NAIL ANY METHOD 6/> 06/11/2021 12:00:00 AM EDT [facility] ([facility] FINE NEEDLE ASPIRATION W/O IMAGING GUIDANCE 06/04/2021 12:00:00 AM EDT eCW1 (Formerly [facility], [facility]–1983) OFFICE OUTPATIENT VISIT 25 MINUTES 05/16/2021 12:00:00 AM EDT [facility] ([facility]) FINE NEEDLE ASPIRATION W/O IMAGING GUIDANCE 05/04/2021 12:00:00 AM EDT eCW1 (Formerly [facility], [facility]–1983) DEBRIDEMENT NAIL ANY METHOD 04/02/2021 12:00:00 AM EDT [facility] ([facility] FINE NEEDLE ASPIRATION W/O IMAGING GUIDANCE 04/02/2021 12:00:00 AM EDT eCW1 (Formerly [facility], [facility]–1983) Medication: Silver Nitrate Stick topically 03/05/2021 12:00:00 AM EDT eCW1 (Formerly [facility], [facility]–1983) FINE NEEDLE ASPIRATION W/O IMAGING GUIDANCE 03/05/2021 12:00:00 AM EDT eCW1 (Formerly [facility], 1928–1983) ECG ROUTINE ECG W/LEAST 12 LDS W/I&R <td>POCT AMB EKG</td><td>Routine</td><td>02/09/2021 12:34 PM EDT</td><td> 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</td><td> </td> 02/09/2021 12:34:00 PM EDT 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 [facility] 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 FINE NEEDLE ASPIRATION W/O IMAGING GUIDANCE 02/05/2021 12:00:00 AM EDT eCW1 (Formerly [facility], [facility]–1983) Medication: Silver Nitrate Stick topically 02/05/2021 12:00:00 AM EDT eCW1 (Formerly [facility], [facility]–1983) DEBRIDEMENT NAIL ANY METHOD 01/22/2021 12:00:00 AM EDT MEDGERALD ([facility] Medication: Silver Nitrate Stick topically 01/08/2021 12:00:00 AM EDT eCW1 (Formerly [facility], [facility]–1983) FINE NEEDLE ASPIRATION W/O IMAGING GUIDANCE 12/11/2020 12:00:00 AM EDT eCW1 (Formerly [facility], [facility]–1983) HEMOGLOBIN GLYCOSYLATED A1C <td>HEMOGLOBIN A1C</td><td>Routine</td><td>11/27/2020</td><td></td><td> </td> 11/27/2020 12:00:00 AM EDT [facility] FERRITIN <td>FERRITIN</td><td>Routine </td><td>11/27/2020</td><td></td><td> </td> 11/27/2020 12:00:00 AM EDT [facility] HEPATIC FUNCTION PANEL <td>HEPATIC FUNCTION PANEL</td><td>Routine</td><td>11/27/2020</td><td></td><td> </td> 11/27/2020 12:00:00 AM EDT [facility] BASIC METABOLIC PANEL CALCIUM TOTAL <td>BASIC METABOLI C PANEL</td><td>Routine</td><td>11/27/2020</td><td></td><td> </td> 11/27/2020 12:00:00 AM EDT [facility] Medication: Aquaphor healing ointment topical 11/25/19 12:00:00 AM EST eCW1 (Formerly [facility], [facility]–1983) DEBRIDEMENT NAIL ANY METHOD /> 11/13/2020 12:00:00 AM EST [facility] ([facility] FINE NEEDLE ASPIRATION W/O IMAGING GUIDANCE 10/27/2020 12:00:00 AM EST eCW1 (Formerly [facility], [facility]–1983) Medication: Silver Nitrate Stick topically 10/27/2020 12:00:00 AM EST eCW1 (Formerly [facility], [facility]–1983) FINE NEEDLE ASPIRATION W/O IMAGING GUIDANCE 09/29/2020 12:00:00 AM EST eCW1 (Formerly [facility], [facility]–1983) PARING/CUTTING BENIGN HYPERKERATOTIC LESION 1 09/04/20 12:00:00 AM EST [facility] ([facility] DEBRIDEMENT NAIL ANY METHOD 6/> 09/04/2020 12:00:00 AM EST [facility] ([facility] FINE NEEDLE ASPIRATION W/O IMAGING GUIDANCE 09/01/2020 12:00:00 AM EST eCW1 (Formerly [facility], [facility]–1983) FINE NEEDLE ASPIRATION W/O IMAGING GUIDANCE 08/04/2020 12:00:00 AM EST eCW1 (Formerly [facility], [facility]–1983) ECG ROUTINE ECG W/LEAST 12 LDS W/I&R <td>POCT AMB EKG</td><td>Routine</td><td>08/02/2020 4:04 PM EST</td><td> 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</td><td> </td> 08/02/2020 09:04:00 PM EST 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 [facility] 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 FINE NEEDLE ASPIRATION W/O IMAGING GUIDANCE 07/14/2020 12:00:00 AM EDT eCW1 (Formerly [facility], [facility]–1983) BLOOD COUNT COMPLETE AUTO&AUTO DIFRNTL WBC COUNT <td>C BC AND DIFFERENTIAL</td><td>Routine</td><td>07/11/2020</td><td></td><td> </td> 07/11/2020 12:00:00 AM EDT [facility] HEPATIC FUNCTION PANEL <td>HEPATIC FUNCTION PANEL</td><td>Routine</td><td>07/11/2020</td><td></td><td> </td> 07/11/2020 12:00:00 AM EDT [facility] LIPID PANEL <td>LIPID PANEL</td><td>Rout ine</td><td>07/11/2020</td><td></td><td> </td> 07/11/2020 12:00:00 AM EDT [facility] BASIC METABOLIC PANEL CALCIUM TOTAL <td>BASIC METABOLI C PANEL</td><td>Routine</td><td>07/11/2020</td><td></td><td> </td> 07/11/2020 12:00:00 AM EDT [facility] Immunization: Flublok Quadrivalent (18 years & older) 0.5mL IM (Influenza) 07/11/2020 12:00:00 AM EDT eCW1 ([facility]) PARING/CUTTING BENIGN HYPERKERATOTIC LESION 1 06/27/20 12:00:00 AM EDT [facility] ([facility] DEBRIDEMENT NAIL ANY METHOD 06/27/2020 12:00:00 AM EDT [facility] ([facility] Results ID Date Data Source URINE CULTURE 07/04/2021 12:00:00 AM EDT eCW1 (Counts include 234 beds at the [facility]) Name Value Range Interpretation Code Description Data Dayana rce(s) Supporting Document(s) Laboratory studies (set) URINE CULTU RE [facility] (Formerly [facility], [facility]–1983) ID Date Data Source UA URINALYSIS 07/04/2021 12:00:00 AM EDT eCW1 (Counts include 234 beds at the [facility]) Name Value Range Interpretation Code Description Data Dayana rce(s) Supporting Document(s) Laboratory studies (set) UA URINALYS IS eCW1 (Formerly [facility], 1928–1983) ID Date Data Source [id number] 04/10/2021 12:42:00 AM EDT [facility] Name Value Range Interpretation Code Description Data Dayana rce(s) Supporting Document(s) SARS coronavirus 2 RNA [Presence] in Res piratory specimen by JUAN with probe detection NEGATIVE [facility] This lab was ordered by [facility] a nd reported by [facility]. ID Date Data Source Reticulocyte Count Sysmex 11/27/2020 12:00:00 AM EDT eCW1 ([facility]) Name Value Range Interpretation Code Description Data Dayana rce(s) Supporting Document(s) 1.7 0.5-1.5 RETICULOCYTE % eCW1 (Formerly [facility], 1928–1983) ID Date Data Source [id number] 11/27/2020 12:00:00 AM EDT eCW1 (Counts include 234 beds at the [facility]) Name Value Range Interpretation Code Description Data Dayana rce(s) Supporting Document(s) Hemoglobin A1c/Hemoglobin.total in Blood 8.2 HEMOGLOBIN A1c eCW1 (Formerly [facility], 1928–1983) ID Date Data Source CBC with Differential 11/27/2020 12:00:00 AM EDT eCW1 ([facility]) Name Value Range Interpretation Code Description Data Dayana rce(s) Supporting Document(s) 10.7 4.0-10.0 WHITE BLOOD COUNT eCW1 ([facility]) 99.4 80.0-96.0 MEAN CORPUSCULAR VOLUME e CW1 (Formerly [facility], 1928–1983) 50.4 42.0-52.0 HEMATOCRIT eCW1 ([facility]) 15.9 13.5-17.5 HEMOGLOBIN eCW1 ([facility]) 5.07 4.30-6.10 RED BLOOD COUNT eCW1 ([facility]) 212 150-450 PLATELET COUNT, AUTOMATED eCW1 (Formerly [facility], 1928–1983) 31.5 32.0-36.5 MEAN CORPUSCULAR HGB CONC eCW1 (Formerly [facility], 1928–1983) 13.1 11.5-14.5 RED CELL DISTRIBUTION WID TH eCW1 (Formerly [facility], 1928–1983) 31.4 27.0-33.0 MEAN CORPUSCULAR HEMOGLOB IN eCW1 (Formerly [facility], 1928–1983) 14.3 24.0-44.0 LYMPH % eCW1 ([facility]) 72.6 36.0-66.0 NEUTROPHILS % eCW1 (Formerly [facility], 1928–1983) 1.9 0.0-3.0 EOS % eCW1 ([facility]) 10.0 2.0-8.0 MONO % eCW1 ([facility]) 0.7 0.0-1.0 BASO % eCW1 ([facility]) 7.8 1.5-8.5 NEUTROPHILS # eCW1 (Formerly [facility], 1928–1983) 1.5 1.5-5.0 LYMPH # eCW1 ([facility]) 1.1 0.0-0.8 MONO # eCW1 ([facility]) 0.2 0.0-0.5 EOS # eCW1 ([facility]) 0.1 0.0-0.2 BASO # eCW1 ([facility]) ID Date Data Source [id number] 08/18/2020 08:53:39 AM EST [facility] Name Value Range Interpretation Code Description Data Dayana rce(s) Supporting Document(s) &PDF [facility] OCBZDs7dNnFMSaBu48/OKEyqUPGgv8TuZWvxULf6CDnnDTYyO6JafOffNYjFEMWNSNqUERDPPSWrTMAw FcG [file] AgICAgICAgICAgICAgICAgICAgICAgICAgICAgICAgICAgICAgICAgICAgICAgICAgICAgICAgICAgIC AgICANCiAgICAgICAgICAgICAgICAgICAgICAgICAg ICAgICAgICAgICAgICAgICAgICAgICAgICAgICAgICAgICAgICAgICAgICAgICAgICAgICAgICAgICAg ICAgICAgICAgICAgICANCiAgICAgICAgICAgICAgICAgICAgICAgICAgICAgICAgICAgICAgICAgICAg ICAgICAgICAgICAgICAgICAgICAgICAgICAgICAgIC AgICAgICAgICAgICAgICAgICAgICAgICANCiAgICAgICAgICAgICAgICAgICAgICAgICAgICAgICAgIC AgICAgICAgICAgICAgICAgICAgICAgICAgICAgICAgICAgICAgICAgICAgICAgICAgICAgICAgICAgIC AgICAgICANCiAgICAgICAgICAgICAgICAgICAgICAg ICAgICAgICAgICAgICAgICAgICAgICAgICAgICAgICAgICAgICAgICAgICAgICAgICAgICAgICAgICAg ICAgICAgICAgICAgICAgICANCiAgICAgICAgICAgICAgICAgICAgICAgICAgICAgICAgICAgICAgICAg ICAgICAgICAgICAgICAgICAgICAgICAgICAgICAgIC AgICAgICAgICAgICAgICAgICAgICAgICAgICANCiAgICAgICAgICAgICAgICAgICAgICAgICAgICAgIC AgICAgICAgICAgICAgICAgICAgICAgICAgICAgICAgICAgICAgICAgICAgICAgICAgICAgICAgICAgIC AgICAgICAgICANCiAgICAgICAgICAgICAgICAgICAg ICAgICAgICAgICAgICAgICAgICAgICAgICAgICAgICAgICAgICAgICAgICAgICAgICAgICAgICAgICAg ICAgICAgICAgICAgICAgICAgICANCiAgICAgICAgICAgICAgICAgICAgICAgICAgICAgICAgICAgICAg ICAgICAgICAgICAgICAgICAgICAgICAgICAgICAgIC AgICAgICAgICAgICAgICAgICAgICAgICAgICAgICANCiAgICAgICAgICAgICAgICAgICAgICAgICAgIC AgICAgICAgICAgICAgICAgICAgICAgICAgICAgICAgICAgICAgICAgICAgICAgICAgICAgICAgICAgIC AgICAgICAgICAgICANCjw/oTPkZ2pyhJHvphC4O5mq Wt0DVo4QJS3is8VaLCXdCGfxcfHjSosFPuBvRUEuSfhNQpg9RAenUI0HyWGyO2LjI2VkJUvwBY3WRSBf EAWorYHyQAYlACXuPsV8CJCvXOlgIG4HxULgNQmdDOSjSTVeQzSxPMMcGP9DCSVfH717esIoDd5PFv8M ZeKaKN5dgk5XPXiaIVMaXriXZhk7XWseXW3LnJGcS5 IxgPKfb0dABfJmY5APXDD6DRFhDq8OGGLaOcHlLKAhGKenIA3uDSQfNUWNgAsovaM6VN9ERI2gsqOsHV 9XDlWlVm7nQb9CEwJzQ7DiN3SwAIJeRFYYSBzgFV9LAWUdWBZ5PSOhOuDtHQSDFiBlW77tQL5TW3Jvm4 8gMjU9HROdDqQwZXmdZR86uTiqkfXxvQNciGrhIO7Z Cj4+DZloygRiQnlOCacaLJXPCoWhJFtFHqGyCNXrABLwNYYrFlC2DnMdLb6TUQQlFMSvZHGaGwScZNJq CHQbHRyjPYAeJJM6RTGwGIOeVHElUR3NBpKkUVDoVPusHVWsPKUbUTTsni6HKMAeTWXeNCU5VNNfYDSt CMKbJRyjHVPhHDGfKUuzFRTuSJUpEW3GAmPuOOBrHJ ViVREmXNPuLHNiik3VNYTwDXOlTko0BiZxORQgXVZlGWkbYGHfJPD3RSQ2YTTeGGBzXP6XXvCnKILuLZ HiKHRqYDKsUDCoqg9SBWKdTWRaHNYxGZIxEFXwGWTnRWtpWVDkGOW6YCvrBPRyVBRzRH8IBzPeMNAiSP N8ALSxYJWdSQOiao7PQCDbTDXtCwM1BaSiAFAgTXEl NYurYZPuXCO1MAOsZQVvLGDbFZ8YUrKjVUFzSRW9BuPbKMQkPWJvus3NULWuPDAjSLV3APZpHVMrDPSk LXwsCZCrFEG0FTZ9IHPiGLUcMV9JKhHkWRApJNg5YVVoMMDnRIGdem0EoCKgkKotnk7CSHhBYt4WnMrp HIS6YVmfTy4ufQDaFTYqHRJFLu5MabAtTSUbUSQDPC siNFKiNLA7MbX4V6SxDzUtSDDrYlg2UYZcRNgyNTwyPUKlBCbhDbR1Wmn6PHhcTNCaQKNaUeOrATZ2TC RrMPWnR2P9VaDnW8K+BN4aCSo+Er6Xg8OvkyL4ovYxAUmrWjX8Zr9QCIQCU3GLMt== ID Date Data Source ERYTHROCYTE SEDIMENTATION RATE 07/11/2020 05:41:11 AM EDT eC W1 (Formerly [facility], [facility]–1983) Name Value Range Interpretation Code Description Data Dayana rce(s) Supporting Document(s) 34 eCW1 ([facility]) ID Date Data Source C REACTIVE PROTEIN QUANTITATIV (At [facility]) 07/11/2020 05:41 :08 AM EDT eCW1 (Formerly [facility], [facility]–1983) Name Value Range Interpretation Code Description Data Dayana rce(s) Supporting Document(s) 2.35 C REACTIVE PROTEIN QUANTITATIV eCW1 (Formerly [facility], [facility]–1983) ID Date Data Source VITAMIN B12 LEVEL 07/11/2020 05:40:56 AM EDT eCW1 (Counts include 234 beds at the [facility]) Name Value Range Interpretation Code Description Data Dayana rce(s) Supporting Document(s) 829 eCW1 ([facility]) ID Date Data Source [id number] 07/11/2020 05:40:53 AM EDT eCW1 (Counts include 234 beds at the [facility]) Name Value Range Interpretation Code Description Data Dayana rce(s) Supporting Document(s) Microalbumin/Creatinine [Ratio] in Urine 47.6 eCW1 (Formerly [facility], [facility]) Albumin/Creatinine [Mass Ratio] in Urine 57.2 eCW1 (Formerly [facility], [facility]–1983) Microalbumin/Creatinine [Mass Ratio] in Urine 120.0 eCW1 (Formerly [facility], [facility]–1983) ID Date Data Source NT-PRO BNP 07/11/2020 05:40:48 AM EDT eCW1 (Counts include 234 beds at the [facility]) Name Value Range Interpretation Code Description Data Dayana rce(s) Supporting Document(s) 139 NT-PRO BNP eCW1 ([facility]) ID Date Data Source LIPID PANEL (CARDIAC RISK) 07/11/2020 05:40:45 AM EDT eCW1 ( Formerly [facility], [facility]) Name Value Range Interpretation Code Description Data Dayana rce(s) Supporting Document(s) Triglyceride [Mass/volume] in Serum or Plasma by calculation 194 TRIGLYCERIDES LEVEL eCW1 (Formerly [facility], 1928–1983) Cholesterol in LDL [Mass/volume] in Serum or Plasma by calculation 89 LDL CHOLESTEROL eCW1 (Formerly [facility], [facility]–1983) 128 NON-HDL-C eCW1 ([facility]) Cholesterol [Moles/volume] in Serum or Plasma 168 CHOLESTEROL LEVEL eCW1 (Formerly [facility], [facility]–1983) Cholesterol in HDL [Moles/volume] in Serum or Plasma 40 HDL CHOLESTEROL eCW1 (Formerly [facility], 1928–1983) 4.200 CHOLESTEROL RISK RATIO eCW1 ([facility]) ID Date Data Source FREE T4 & TSH PANEL 07/11/2020 05:40:42 AM EDT eCW1 (Counts include 234 beds at the [facility]) Name Value Range Interpretation Code Description Data Dayana rce(s) Supporting Document(s) 0.88 FREE T4 eCW1 ([facility]) 1.560 THYROID STIMULATING HORMONE eC W1 (Formerly [facility], [facility]–1983) ID Date Data Source Comprehensive Metabolic Profile (CMP) 07/11/2020 05:40:20 AM EDT eCW1 (Formerly [facility], [facility]–1983) Name Value Range Interpretation Code Description Data Dayana rce(s) Supporting Document(s) 20 BLOOD UREA NITROGEN eCW1 ([facility]) 56.2 GLOMERULAR FILTRATION RATE eCW 1 (Formerly [facility], 1928–1983) 176 GLUCOSE, FASTING eCW1 (Counts include 234 beds at the [facility]) 1.36 CREATININE FOR GFR eCW1 ([facility]) 104 CHLORIDE LEVEL eCW1 (Formerly [facility], 1928–1983) 138 SODIUM LEVEL eCW1 ([facility]) 4.7 POTASSIUM SERUM eCW1 ([facility]) 29 CARBON DIOXIDE LEVEL eCW1 ([facility]) 111 ALKALINE PHOSPHATASE eCW1 ([facility]) 16 AST/SGOT eCW1 ([facility]) 20 ALT/SGPT eCW1 ([facility]) 9.2 CALCIUM LEVEL eCW1 (Formerly [facility], 1928–1983) 0.3 BILIRUBIN,TOTAL eCW1 ([facility]) 3.4 ALBUMIN eCW1 ([facility]) 0.9 ALBUMIN/GLOBULIN RATIO eCW1 ([facility]) 7.4 TOTAL PROTEIN eCW1 (Formerly [facility], 1928–1983) ID Date Data Source VITAMIN D 25-HYDROXY 07/11/2020 05:40:14 AM EDT eCW1 ([facility]) Name Value Range Interpretation Code Description Data Dayana rce(s) Supporting Document(s) 30.5 TOTAL 25(OH) VITAMIN D eCW1 ([facility]) ID Date Data Source PTH INTACT 07/11/2020 05:40:12 AM EDT eCW1 (Counts include 234 beds at the [facility]) Name Value Range Interpretation Code Description Data Dayana rce(s) Supporting Document(s) 30.9 PTH INTACT eCW1 ([facility]) Procedure Social History Code Duration Value Status Description Data Source(s ) Smoking 08/08/2021 12:00:00 AM EST Current Smoker completed Curre nt Smoker eCW1 (Formerly [facility], [facility]1983) Smoking 08/08/2021 12:00:00 AM EST Current Smoker completed Curre nt Smoker eCW1 (Formerly [facility], [facility]–1983) Smoking 07/30/2021 12:00:00 AM EST Current Smoker completed Curre nt Smoker eCW1 (Formerly [facility], [facility]–1983) Smoking 07/30/2021 12:00:00 AM EST Current Smoker completed Curre nt Smoker eCW1 (Formerly [facility], [facility]–1983) Smoking 07/30/2021 12:00:00 AM EST Current Smoker completed Curre nt Smoker eCW1 (Formerly [facility], [facility]) Smoking 07/06/2021 12:00:00 AM EDT Current Smoker completed Curre nt Smoker eCW1 (Formerly [facility], [facility]) Smoking 07/06/2021 12:00:00 AM EDT Current Smoker completed Curre nt Smoker eCW1 (Formerly [facility], [facility]) Smoking 07/06/2021 12:00:00 AM EDT Current Smoker completed Curre nt Smoker eCW1 (Formerly [facility], [facility]) Smoking 07/06/2021 12:00:00 AM EDT Current Smoker completed Curre nt Smoker eCW1 (Formerly [facility], [facility]) Smoking 07/06/2021 12:00:00 AM EDT Current Smoker completed Curre nt Smoker eCW1 (Formerly [facility], [facility]) Smoking 07/04/2021 12:00:00 AM EDT Current Smoker completed Curre nt Smoker eCW1 (Formerly [facility], [facility]) Smoking 07/04/2021 12:00:00 AM EDT Current Smoker completed Curre nt Smoker eCW1 (Formerly [facility], [facility]) Smoking 07/01/2021 12:00:00 AM EDT Current Smoker completed Curre nt Smoker eCW1 (Formerly [facility], [facility]) Smoking 07/01/2021 12:00:00 AM EDT Current Smoker completed Curre nt Smoker eCW1 (Formerly [facility], [facility]) Smoking 06/22/2021 12:00:00 AM EDT Current Smoker completed Curre nt Smoker eCW1 (Formerly [facility], [facility]) Smoking 06/04/2021 12:00:00 AM EDT Current Smoker completed Curre nt Smoker eCW1 (Formerly [facility], [facility]) Smoking 06/04/2021 12:00:00 AM EDT Current Smoker completed Curre nt Smoker eCW1 (Formerly [facility], [facility]) Smoking 06/04/2021 12:00:00 AM EDT Current Smoker completed Curre nt Smoker eCW1 (Formerly [facility], [facility]–1983) Smoking 06/04/2021 12:00:00 AM EDT Current Smoker completed Curre nt Smoker eCW1 (Formerly [facility], [facility]–1983) 05/16/2021 12:00:00 AM EDT Patient is a current smoker, smokes every day completed Patient is a current smoker, smokes every day [facility] ( [facility]) Smoking 05/16/2021 12:00:00 AM EDT Heavy tobacco smoker (more than 10 cigarettes/day) completed Heavy tobacco smoker (more than 10 cigar ettes/day) [facility]ENT ([facility]) Smoking 05/04/2021 12:00:00 AM EDT Current Smoker completed Curre nt Smoker eCW1 (Formerly [facility], [facility]–1983) Smoking 05/04/2021 12:00:00 AM EDT Current Smoker completed Curre nt Smoker eCW1 (Formerly [facility], [facility]) Smoking 05/04/2021 12:00:00 AM EDT Current Smoker completed Curre nt Smoker eCW1 (Formerly [facility], [facility]) Smoking 05/04/2021 12:00:00 AM EDT Current Smoker completed Curre nt Smoker eCW1 (Formerly [facility], [facility]) Smoking 04/23/2021 12:00:00 AM EDT Current Smoker completed Curre nt Smoker eCW1 (Formerly [facility], [facility]) Smoking 04/02/2021 12:00:00 AM EDT Current Smoker completed Curre nt Smoker eCW1 (Formerly [facility], [facility]) Smoking 04/02/2021 12:00:00 AM EDT Current Smoker completed Curre nt Smoker eCW1 (Formerly [facility], [facility]) Smoking 04/02/2021 12:00:00 AM EDT Current Smoker completed Curre nt Smoker eCW1 (Formerly [facility], [facility]) Smoking 03/13/2021 12:00:00 AM EDT Current Smoker completed Curre nt Smoker eCW1 (Formerly [facility], [facility]) Smoking 03/13/2021 12:00:00 AM EDT Current Smoker completed Curre nt Smoker eCW1 (Formerly [facility], [facility]) Smoking 03/05/2021 12:00:00 AM EDT Current Smoker completed Curre nt Smoker eCW1 (Formerly [facility], [facility]) Alcohol intake 02/09/2021 12:00:00 AM EDT Ex-drinker (finding) comp leted Ex- drinker (finding) [facility] Smoking 02/05/2021 12:00:00 AM EDT Current Smoker completed Curre nt Smoker eCW1 (Formerly [facility], [facility]–1983) Smoking 02/05/2021 12:00:00 AM EDT Current Smoker completed Curre nt Smoker eCW1 (Formerly [facility], [facility]) Smoking 01/08/2021 12:00:00 AM EDT Current Smoker completed Curre nt Smoker eCW1 (Formerly [facility], [facility]) Smoking 01/08/2021 12:00:00 AM EDT Current Smoker completed Curre nt Smoker eCW1 (Formerly [facility], [facility]) Smoking 01/08/2021 12:00:00 AM EDT Current Smoker completed Curre nt Smoker eCW1 (Formerly [facility], [facility]) Smoking 12/11/2020 12:00:00 AM EDT Current Smoker completed Curre nt Smoker eCW1 (Formerly [facility], [facility]) Smoking 12/11/2020 12:00:00 AM EDT Current Smoker completed Curre nt Smoker eCW1 (Formerly [facility], [facility]) Smoking 12/11/2020 12:00:00 AM EDT Current Smoker completed Curre nt Smoker eCW1 (Formerly [facility], [facility]) Smoking 12/11/2020 12:00:00 AM EDT Current Smoker completed Curre nt Smoker eCW1 (Formerly [facility], [facility]) Smoking 11/24/2020 12:00:00 AM EST Current Smoker completed Curre nt Smoker eCW1 (Formerly [facility], [facility]) Smoking 11/24/2020 12:00:00 AM EST Current Smoker completed Curre nt Smoker eCW1 (Formerly [facility], [facility]–1983) Smoking 11/24/2020 12:00:00 AM EST Current Smoker completed Curre nt Smoker eCW1 (Formerly [facility], [facility]) Smoking 11/24/2020 12:00:00 AM EST Current Smoker completed Curre nt Smoker eCW1 (Formerly [facility], [facility]) Smoking 10/27/2020 12:00:00 AM EST Current Smoker completed Curre nt Smoker eCW1 (Formerly [facility], [facility]) Smoking 10/27/2020 12:00:00 AM EST Current Smoker completed Curre nt Smoker eCW1 (Formerly [facility], [facility]–1983) Smoking 10/27/2020 12:00:00 AM EST Current Smoker completed Curre nt Smoker eCW1 (Formerly [facility], 1928–1983) Smoking 10/27/2020 12:00:00 AM EST Current Smoker completed Curre nt Smoker eCW1 (Formerly [facility], 1928–1983) Smoking 10/27/2020 12:00:00 AM EST Current Smoker completed Curre nt Smoker eCW1 (Formerly [facility], 1928–1983) Smoking 09/29/2020 12:00:00 AM EST Current Smoker completed Curre nt Smoker eCW1 (Formerly [facility], 1928–1983) Smoking 09/29/2020 12:00:00 AM EST Current Smoker completed Curre nt Smoker eCW1 (Formerly [facility], 1928–1983) Smoking 09/13/2020 12:00:00 AM EST Current Smoker completed Curre nt Smoker eCW1 (Formerly [facility], 1928–1983) Smoking 09/13/2020 12:00:00 AM EST Current Smoker completed Curre nt Smoker eCW1 (Formerly [facility], 1928–1983) Smoking 08/04/2020 12:00:00 AM EST Current Smoker completed Curre nt Smoker eCW1 (Formerly [facility], 1928–1983) Smoking 08/04/2020 12:00:00 AM EST Current Smoker completed Curre nt Smoker eCW1 (Formerly [facility], 1928–1983) Smoking 08/04/2020 12:00:00 AM EST Current Smoker completed Curre nt Smoker eCW1 (Formerly [facility], 1928–1983) Smoking 07/14/2020 12:00:00 AM EDT Current Smoker completed Curre nt Smoker eCW1 (Formerly [facility], 1928–1983) Smoking 07/14/2020 12:00:00 AM EDT Current Smoker completed Curre nt Smoker eCW1 (Formerly [facility], 1928–1983) Smoking 07/14/2020 12:00:00 AM EDT Current Smoker completed Curre nt Smoker eCW1 (Formerly [facility], 1928–1983) Smoking 07/14/2020 12:00:00 AM EDT Current Smoker completed Curre nt Smoker eCW1 (Formerly [facility], 1928–1983) Smoking 07/14/2020 12:00:00 AM EDT Current Smoker completed Curre nt Smoker eCW1 (Formerly [facility], 1928–1983) Smoking 07/14/2020 12:00:00 AM EDT Current Smoker completed Curre nt Smoker eCW1 (Formerly [facility], 1928–1983) Smoking 07/11/2020 12:00:00 AM EDT Current Smoker completed Curre nt Smoker eCW1 (Formerly [facility], 1928–1983) Smoking 06/22/2020 12:00:00 AM EDT Current Smoker completed Curre nt Smoker eCW1 (Formerly [facility], 1928–1983) Smoking 06/22/2020 12:00:00 AM EDT Current Smoker completed Curre nt Smoker eCW1 (Formerly [facility], 1928–1983) Smoking 06/22/2020 12:00:00 AM EDT Current Smoker completed Curre nt Smoker eCW1 (Formerly [facility], 1928–1983) Smoking 06/22/2020 12:00:00 AM EDT Current Smoker completed Curre nt Smoker eCW1 (Formerly [facility], 1928–1983) Smoking 06/22/2020 12:00:00 AM EDT Current Smoker completed Curre nt Smoker eCW1 (Formerly [facility], 1928–1983) Vital Signs ID Date Data Source UNK Name Value Range Interpretation Code Description Data Source(s) Body weight 188 [lb_av] 188 [lb_av] eCW1 ([facility]) Body weight 85.28 kg 85.28 kg eCW1 (Counts include 234 beds at the [facility]) Body height 69 [in_i] 69 [in_i] eCW1 (Counts include 234 beds at the [facility]) Body mass index (BMI) [Ratio] 27.76 kg/m2 27.76 kg/m2 eCW1 (Formerly [facility], 1928–1983) Heart rate 67 /min 67 /min eCW1 ([facility]) Respiratory rate 19 /min 19 /min eCW1 ([facility]) Body temperature 98.3 [degF] 98.3 [degF] eCW1 ( Formerly [facility], 1928–1983) Systolic blood pressure 116 mm[Hg] 116 mm[Hg] e CW1 (Formerly [facility], 1928–1983) Diastolic blood pressure 66 mm[Hg] 66 mm[Hg] eCW1 (Formerly [facility], 1928–1983) Body weight 188 [lb_av] 188 [lb_av] eCW1 ([facility]) Body height 69 [in_i] 69 [in_i] eCW1 (Counts include 234 beds at the [facility]) Body mass index (BMI) [Ratio] 27.76 kg/m2 27.76 kg/m2 W1 (Formerly [facility], 1928–1983) Heart rate 79 /min 79 /min eCW1 ([facility]) Respiratory rate 20 /min 20 /min eCW1 ([facility]) Body temperature 97.3 [degF] 97.3 [degF] eCW1 ( Formerly [facility], 1928–1983) Systolic blood pressure 121 mm[Hg] 121 mm[Hg] e CW1 (Formerly [facility], 1928–1983) Diastolic blood pressure 66 mm[Hg] 66 mm[Hg] eCW1 (Formerly [facility], 1928–1983) Body weight 188 [lb_av] 188 [lb_av] eCW1 ([facility]) Body height 69 [in_i] 69 [in_i] eCW1 (Counts include 234 beds at the [facility]) Body mass index (BMI) [Ratio] 27.76 kg/m2 27.76 kg/m2 eCW1 (Formerly [facility], 1928–1983) Heart rate 53 /min 53 /min eCW1 ([facility]) Respiratory rate 17 /min 17 /min eCW1 ([facility]) Body temperature 95.2 [degF] 95.2 [degF] eCW1 ( Formerly [facility], 1928–1983) Systolic blood pressure 132 mm[Hg] 132 mm[Hg] e CW1 (Formerly [facility], 1928–1983) Diastolic blood pressure 66 mm[Hg] 66 mm[Hg] eCW1 (Formerly [facility], 1928–1983) Body weight 188 [lb_av] 188 [lb_av] eCW1 ([facility]) Body weight 85.28 kg 85.28 kg eCW1 (Counts include 234 beds at the [facility]) Body height 69 [in_i] 69 [in_i] eCW1 (Counts include 234 beds at the [facility]) Body mass index (BMI) [Ratio] 27.76 kg/m2 27.76 kg/m2 eCW1 (Formerly [facility], 1928–1983) Systolic blood pressure 118 mm[Hg] 118 mm[Hg] e CW1 (Formerly [facility], 1928–1983) Diastolic blood pressure 78 mm[Hg] 78 mm[Hg] eCW1 (Formerly [facility], 1928–1983) Heart rate 76 /min 76 /min eCW1 ([facility]) Respiratory rate 18 /min 18 /min eCW1 ([facility]) Body temperature 96.4 [degF] 96.4 [degF] eCW1 ( Formerly [facility], 1928–1983) Body weight 186.0 [lb_av] 186.0 [lb_av] eCW1 ([facility]) Body weight 84.37 kg 84.37 kg eCW1 (Counts include 234 beds at the [facility]) Body height 69 [in_i] 69 [in_i] eCW1 (Counts include 234 beds at the [facility]) Body mass index (BMI) [Ratio] 27.46 kg/m2 27.46 kg/m2 eCW1 (Formerly [facility], 1928–1983) Heart rate 62 /min 62 /min eCW1 ([facility]) Respiratory rate 18 /min 18 /min eCW1 ([facility]) Body temperature 98.0 [degF] 98.0 [degF] eCW1 ( Formerly [facility], 1928–1983) Systolic blood pressure 130 mm[Hg] 130 mm[Hg] e CW1 (Formerly [facility], 1928–1983) Diastolic blood pressure 63 mm[Hg] 63 mm[Hg] eCW1 (Formerly [facility], 1928–1983) Body height 69 [in_i] 69 [in_i] eCW1 (Counts include 234 beds at the [facility]) Body mass index (BMI) [Ratio] 27.32 kg/m2 27.32 kg/m2 eCW1 (Formerly [facility], 1928–1983) Heart rate 60 /min 60 /min eCW1 ([facility]) Respiratory rate 16 /min 16 /min eCW1 ([facility]) Body temperature 99.1 [degF] 99.1 [degF] eCW1 ( Formerly [facility], 1928–1983) Systolic blood pressure 136 mm[Hg] 136 mm[Hg] e CW1 (Formerly [facility], 1928–1983) Diastolic blood pressure 71 mm[Hg] 71 mm[Hg] eCW1 (Formerly [facility], 1928–1983) Body weight 185 [lb_av] 185 [lb_av] eCW1 ([facility]) Body height 69 [in_i] 69 [in_i] MEDENT ([facility]) 5'9" Body weight 185.00 [lb_av] 185.00 [lb_av] MEDEN T ([facility]) Body mass index (BMI) [Ratio] 27.3 kg/m2 27.3 k g/m2 MEDENT ([facility]) Systolic blood pressure 120 mm[Hg] 120 mm[Hg] M EDENT ([facility]) Diastolic blood pressure 78 mm[Hg] 78 mm[Hg] MEDENT ([facility]) Heart rate 70 /min 70 /min MEDENT ([facility]) Body temperature 98.0 [degF] 98.0 [degF] MEDENT ([facility]) Body temperature 36.7 Malathi 36.7 Malathi MEDENT ( [facility]) Body weight 184 [lb_av] 184 [lb_av] eCW1 ([facility]) Diastolic blood pressure 56 mm[Hg] 56 mm[Hg] eCW1 (Formerly [facility], 1928–1983) Body height 69 [in_i] 69 [in_i] eCW1 (Counts include 234 beds at the [facility]) Body mass index (BMI) [Ratio] 27.17 kg/m2 27.17 kg/m2 eCW1 (Formerly [facility], 1928–1983) Heart rate 55 /min 55 /min eCW1 ([facility]) Respiratory rate 16 /min 16 /min eCW1 ([facility]) Body temperature 98.3 [degF] 98.3 [degF] eCW1 ( Formerly [facility], 1928–1983) Systolic blood pressure 113 mm[Hg] 113 mm[Hg] e CW1 (Formerly [facility], 1928–1983) Body weight 184 [lb_av] 184 [lb_av] eCW1 ([facility]) Body weight 83.46 kg 83.46 kg eCW1 (Counts include 234 beds at the [facility]) Body height 69 [in_i] 69 [in_i] eCW1 (Counts include 234 beds at the [facility]) Body mass index (BMI) [Ratio] 27.17 kg/m2 27.17 kg/m2 eCW1 (Formerly [facility], 1928–1983) Heart rate 64 /min 64 /min eCW1 ([facility]) Respiratory rate 20 /min 20 /min eCW1 ([facility]) Body temperature 97.2 [degF] 97.2 [degF] eCW1 ( Formerly [facility], 1928–1983) Systolic blood pressure 120 mm[Hg] 120 mm[Hg] e CW1 (Formerly [facility], 1928–1983) Diastolic blood pressure 62 mm[Hg] 62 mm[Hg] eCW1 (Formerly [facility], 1928–1983) Body weight 185 [lb_av] 185 [lb_av] eCW1 ([facility]) Body mass index (BMI) [Ratio] 27.32 kg/m2 27.32 kg/m2 eCW1 (Formerly [facility], 1928–1983) Heart rate 69 /min 69 /min eCW1 ([facility]) Systolic blood pressure 112 mm[Hg] 112 mm[Hg] e CW1 (Formerly [facility], 1928–1983) Respiratory rate 18 /min 18 /min eCW1 ([facility]) Body temperature 97.7 [degF] 97.7 [degF] eCW1 ( Formerly [facility], 1928–1983) Diastolic blood pressure 63 mm[Hg] 63 mm[Hg] eCW1 (Formerly [facility], 1928–1983) Body weight kg eCW1 (Counts include 234 beds at the [facility]) Body height 69 [in_i] 69 [in_i] eCW1 (Counts include 234 beds at the [facility]) Body height 69 [in_i] 69 [in_i] eCW1 (Counts include 234 beds at the [facility]) Body weight 185.5 [lb_av] 185.5 [lb_av] eCW1 ([facility]) Body mass index (BMI) [Ratio] 27.39 kg/m2 27.39 kg/m2 eCW1 (Formerly [facility], 1928–1983) Heart rate 66 /min 66 /min eCW1 ([facility]) Respiratory rate 18 /min 18 /min eCW1 ([facility]) Body temperature 97.8 [degF] 97.8 [degF] eCW1 ( Formerly [facility], 1928–1983) Systolic blood pressure 103 mm[Hg] 103 mm[Hg] e CW1 (Formerly [facility], 1928–1983) Diastolic blood pressure 59 mm[Hg] 59 mm[Hg] eCW1 (Formerly [facility], 1928–1983) Body weight 187.9 [lb_av] 187.9 [lb_av] eCW1 ([facility]) Body weight kg eCW1 (Counts include 234 beds at the [facility]) Body height 69 [in_i] 69 [in_i] eCW1 (Counts include 234 beds at the [facility]) Body mass index (BMI) [Ratio] 27.74 kg/m2 27.74 kg/m2 eCW1 (Formerly [facility], 1928–1983) Heart rate 61 /min 61 /min eCW1 ([facility]) Respiratory rate 17 /min 17 /min eCW1 ([facility]) Body temperature 98.4 [degF] 98.4 [degF] eCW1 ( Formerly [facility], 1928–1983) Systolic blood pressure 143 mm[Hg] 143 mm[Hg] e CW1 (Formerly [facility], 1928–1983) Diastolic blood pressure 66 mm[Hg] 66 mm[Hg] eCW1 (Formerly [facility], 1928–1983) Systolic blood pressure 120 mm[Hg] 120 mm[Hg] [facility] Diastolic blood pressure 68 mm[Hg] 68 mm[Hg] [facility] Heart rate 71 /min 71 /min [facility] Body height 175.3 cm 175.3 cm [facility] Body weight 85.276 kg 85.276 kg [facility] Body mass index (BMI) [Ratio] 27.76 kg/m2 27.76 kg/m2 [facility] Oxygen saturation in Arterial blood by Pulse oximetry 99 % 99 % [facility] Body weight 187.9 [lb_av] 187.9 [lb_av] eCW1 ([facility]) Body weight kg eCW1 (Counts include 234 beds at the [facility]) Body height 69 [in_i] 69 [in_i] eCW1 (Counts include 234 beds at the [facility]) Body mass index (BMI) [Ratio] 27.74 kg/m2 27.74 kg/m2 W1 (Formerly [facility], 1928–1983) Heart rate 59 /min 59 /min eCW1 ([facility]) Respiratory rate 16 /min 16 /min eCW1 ([facility]) Body temperature 98.3 [degF] 98.3 [degF] eCW1 ( Formerly [facility], 1928–1983) Systolic blood pressure 115 mm[Hg] 115 mm[Hg] e CW1 (Formerly [facility], 1928–1983) Diastolic blood pressure 69 mm[Hg] 69 mm[Hg] eCW1 (Formerly [facility], 1928–1983) Body weight 185 [lb_av] 185 [lb_av] eCW1 ([facility]) Body height 69 [in_i] 69 [in_i] eCW1 (Counts include 234 beds at the [facility]) Body mass index (BMI) [Ratio] 27.32 kg/m2 27.32 kg/m2 W1 (Formerly [facility], 1928–1983) Heart rate 55 /min 55 /min eCW1 ([facility]) Respiratory rate 18 /min 18 /min eCW1 ([facility]) Body temperature 96.1 [degF] 96.1 [degF] eCW1 ( Formerly [facility], 1928–1983) Systolic blood pressure 149 mm[Hg] 149 mm[Hg] e CW1 (Formerly [facility], 1928–1983) Diastolic blood pressure 72 mm[Hg] 72 mm[Hg] eCW1 (Formerly [facility], 1928–1983) Body weight 187 [lb_av] 187 [lb_av] eCW1 ([facility]) Body height 69 [in_i] 69 [in_i] eCW1 (Counts include 234 beds at the [facility]) Body mass index (BMI) [Ratio] 27.61 kg/m2 27.61 kg/m2 eCW1 (Formerly [facility], 1928–1983) Heart rate 66 /min 66 /min eCW1 ([facility]) Respiratory rate 18 /min 18 /min eCW1 ([facility]) Body temperature 98.2 [degF] 98.2 [degF] eCW1 ( Formerly [facility], 1928–1983) Body weight 187.0 [lb_av] 187.0 [lb_av] eCW1 ([facility]) Body height 69 [in_i] 69 [in_i] eCW1 (Counts include 234 beds at the [facility]) Body mass index (BMI) [Ratio] 27.61 kg/m2 27.61 kg/m2 eCW1 (Formerly [facility], 1928–1983) Heart rate 58 /min 58 /min eCW1 ([facility]) Respiratory rate 18 /min 18 /min eCW1 ([facility]) Body temperature 96.9 [degF] 96.9 [degF] eCW1 ( Formerly [facility], 1928–1983) Systolic blood pressure 127 mm[Hg] 127 mm[Hg] e CW1 (Formerly [facility], 1928–1983) Diastolic blood pressure 63 mm[Hg] 63 mm[Hg] eCW1 (Formerly [facility], 1928–1983) Body weight 186.0 [lb_av] 186.0 [lb_av] eCW1 ([facility]) Body height 69 [in_i] 69 [in_i] eCW1 (Counts include 234 beds at the [facility]) Body mass index (BMI) [Ratio] 27.46 kg/m2 27.46 kg/m2 eCW1 (Formerly [facility], 1928–1983) Heart rate 90 /min 90 /min eCW1 ([facility]) Respiratory rate 20 /min 20 /min eCW1 ([facility]) Body temperature 96.9 [degF] 96.9 [degF] eCW1 ( Formerly [facility], 1928–1983) Systolic blood pressure 130 mm[Hg] 130 mm[Hg] e CW1 (Formerly [facility], 1928–1983) Diastolic blood pressure 80 mm[Hg] 80 mm[Hg] eCW1 (Formerly [facility], 1928–1983) Body weight 185 [lb_av] 185 [lb_av] eCW1 ([facility]) Body weight kg eCW1 (Counts include 234 beds at the [facility]) Body height 69 [in_i] 69 [in_i] eCW1 (Counts include 234 beds at the [facility]) Body mass index (BMI) [Ratio] 27.32 kg/m2 27.32 kg/m2 eCW1 (Formerly [facility], 1928–1983) Heart rate 65 /min 65 /min eCW1 ([facility]) Respiratory rate 18 /min 18 /min eCW1 ([facility]) Body temperature 97.9 [degF] 97.9 [degF] eCW1 ( Formerly [facility], 1928–1983) Systolic blood pressure 112 mm[Hg] 112 mm[Hg] e CW1 (Formerly [facility], 1928–1983) Diastolic blood pressure 56 mm[Hg] 56 mm[Hg] eCW1 (Formerly [facility], 1928–1983) Body weight 185 [lb_av] 185 [lb_av] eCW1 ([facility]) Body weight kg eCW1 (Counts include 234 beds at the [facility]) Body height 69 [in_i] 69 [in_i] eCW1 (Counts include 234 beds at the [facility]) Body mass index (BMI) [Ratio] 27.32 kg/m2 27.32 kg/m2 eCW1 (Formerly [facility], 1928–1983) Heart rate 73 /min 73 /min eCW1 ([facility]) Respiratory rate 17 /min 17 /min eCW1 ([facility]) Body temperature 97.1 [degF] 97.1 [degF] eCW1 ( Formerly [facility], 1928–1983) Systolic blood pressure 134 mm[Hg] 134 mm[Hg] e CW1 (Formerly [facility], 1928–1983) Diastolic blood pressure 77 mm[Hg] 77 mm[Hg] eCW1 (Formerly [facility], 1928–1983) Body weight 189 [lb_av] 189 [lb_av] eCW1 ([facility]) Body height 69 [in_i] 69 [in_i] eCW1 (Counts include 234 beds at the [facility]) Body mass index (BMI) [Ratio] 27.91 kg/m2 27.91 kg/m2 eCW1 (Formerly [facility], 1928–1983) Heart rate 62 /min 62 /min eCW1 ([facility]) Respiratory rate 18 /min 18 /min eCW1 ([facility]) Body temperature 96.5 [degF] 96.5 [degF] eCW1 ( Formerly [facility], 1928–1983) Systolic blood pressure 117 mm[Hg] 117 mm[Hg] e CW1 (Formerly [facility], 1928–1983) Diastolic blood pressure 60 mm[Hg] 60 mm[Hg] eCW1 (Formerly [facility], 1928–1983) Systolic blood pressure 106 mm[Hg] 106 mm[Hg] e CW1 (Formerly [facility], 1928–1983) Body weight 189 [lb_av] 189 [lb_av] eCW1 ([facility]) Body mass index (BMI) [Ratio] 27.91 kg/m2 27.91 kg/m2 eCW1 (Formerly [facility], 1928–1983) Heart rate 78 /min 78 /min eCW1 ([facility]) Respiratory rate 22 /min 22 /min eCW1 ([facility]) Body weight kg eCW1 (Counts include 234 beds at the [facility]) Body height 69 [in_i] 69 [in_i] eCW1 (Counts include 234 beds at the [facility]) Body temperature 97.4 [degF] 97.4 [degF] eCW1 ( Formerly [facility], 1928–1983) Diastolic blood pressure 54 mm[Hg] 54 mm[Hg] eCW1 (Formerly [facility], 1928–1983) Body weight 189 [lb_av] 189 [lb_av] eCW1 ([facility]) Body weight kg eCW1 (Counts include 234 beds at the [facility]) Body height 69 [in_i] 69 [in_i] eCW1 (Counts include 234 beds at the [facility]) Body mass index (BMI) [Ratio] 27.91 kg/m2 27.91 kg/m2 W1 (Formerly [facility], 1928–1983) Heart rate 82 /min 82 /min eCW1 ([facility]) Respiratory rate 17 /min 17 /min eCW1 ([facility]) Body temperature 96.8 [degF] 96.8 [degF] eCW1 ( Formerly [facility], 1928–1983) Systolic blood pressure 120 mm[Hg] 120 mm[Hg] e CW1 (Formerly [facility], 1928–1983) Diastolic blood pressure 57 mm[Hg] 57 mm[Hg] W1 (Formerly [facility], 1928–1983) Systolic blood pressure 126 mm[Hg] 126 mm[Hg] [facility] Diastolic blood pressure 74 mm[Hg] 74 mm[Hg] [facility] Heart rate 59 /min 59 /min [facility] Body height 175.3 cm 175.3 cm [facility] Body weight 84.369 kg 84.369 kg [facility] Body mass index (BMI) [Ratio] 27.47 kg/m2 27.47 kg/m2 [facility] Oxygen saturation in Arterial blood by Pulse oximetry 97 % 97 % [facility] Body weight 189 [lb_av] 189 [lb_av] W1 ([facility]) Body height 69 [in_i] 69 [in_i] eCW1 (Counts include 234 beds at the [facility]) Body mass index (BMI) [Ratio] 27.91 kg/m2 27.91 kg/m2 [facility] (Formerly [facility], [facility]–1983) Heart rate 77 /min 77 /min eCW1 ([facility]) Respiratory rate 16 /min 16 /min eCW1 ([facility]) Body temperature 96.8 [degF] 96.8 [degF] eCW1 ( Formerly [facility], 1928–1983) Systolic blood pressure 131 mm[Hg] 131 mm[Hg] e CW1 (Formerly [facility], 1928–1983) Diastolic blood pressure 65 mm[Hg] 65 mm[Hg] eCW1 (Formerly [facility], 1928–1983) Body weight 189.8 [lb_av] 189.8 [lb_av] eCW1 ([facility]) Body height 69 [in_i] 69 [in_i] eCW1 (Counts include 234 beds at the [facility]) Body mass index (BMI) [Ratio] 28.03 kg/m2 28.03 kg/m2 eCW1 (Formerly [facility], 1928–1983) Heart rate 81 /min 81 /min eCW1 ([facility]) Respiratory rate 20 /min 20 /min eCW1 ([facility]) Body temperature 97.2 [degF] 97.2 [degF] eCW1 ( Formerly [facility], 1928–1983) Systolic blood pressure 110 mm[Hg] 110 mm[Hg] e CW1 (Formerly [facility], 1928–1983) Diastolic blood pressure 62 mm[Hg] 62 mm[Hg] eCW1 (Formerly [facility], 1928–1983) Body weight 188.4 [lb_av] 188.4 [lb_av] eCW1 ([facility]) Body height 69 [in_i] 69 [in_i] eCW1 (Counts include 234 beds at the [facility]) Body mass index (BMI) [Ratio] 27.82 kg/m2 27.82 kg/m2 W1 (Formerly [facility], 1928–1983) Heart rate 67 /min 67 /min eCW1 ([facility]) Respiratory rate 18 /min 18 /min eCW1 ([facility]) Body temperature 97.6 [degF] 97.6 [degF] eCW1 ( Formerly [facility], 1928–1983) Systolic blood pressure 116 mm[Hg] 116 mm[Hg] e CW1 (Formerly [facility], 1928–1983) Diastolic blood pressure 59 mm[Hg] 59 mm[Hg] eCW1 (Formerly [facility], 1928–1983) Patient Treatment Plan of Care Planned Activity Planned Date Details Description Data Source (s) Oxycodone Hydrochloride 10 MG Oral Tablet 08/15/2021 12:00:00 AM ES T eCW1 (Formerly [facility], 1928–1983) NITROFURANTOIN, MACROCRYSTALS 25 MG / Ni trofurantoin, Monohydrate 75 MG Oral Capsule [Macrobid] 07/04/2021 12:00:00 AM EDT eC W1 (Formerly [facility], 1928–1983) NITROFURANTOIN, MACROCRYSTALS 25 MG / Ni trofurantoin, Monohydrate 75 MG Oral Capsule [Macrobid] 07/04/2021 12:00:00 AM EDT eC W1 (Formerly [facility], 1928–1983) Oxycodone Hydrochloride 10 MG Oral Tablet 06/22/2021 12:00:00 AM ED T eCW1 (Formerly [facility], 1928–1983) Oxycodone Hydrochloride 10 MG Oral Tablet 06/22/2021 12:00:00 AM ED T eCW1 (Formerly [facility], 1928–1983) Oxycodone Hydrochloride 10 MG Oral Tablet 06/22/2021 12:00:00 AM ED T eCW1 (Formerly [facility], 1928–1983) Oxycodone Hydrochloride 10 MG Oral Tablet 06/15/2021 12:00:00 AM ED T eCW1 (Formerly [facility], 1928–1983) Oxycodone Hydrochloride 10 MG Oral Tablet 06/15/2021 12:00:00 AM ED T eCW1 (Formerly [facility], 1928–1983) Oxycodone Hydrochloride 10 MG Oral Tablet 06/15/2021 12:00:00 AM ED T eCW1 (Formerly [facility], 1928–1983) Oxycodone Hydrochloride 10 MG Oral Tablet 05/21/2021 12:00:00 AM ED T eCW1 (Formerly [facility], 1928–1983) Oxycodone Hydrochloride 10 MG Oral Tablet 05/21/2021 12:00:00 AM ED T eCW1 (Formerly [facility], 1928–1983) Oxycodone Hydrochloride 10 MG Oral Tablet 04/13/2021 12:00:00 AM ED T eCW1 (Formerly [facility], 1928–1983) Oxycodone Hydrochloride 10 MG Oral Tablet 03/20/2021 12:00:00 AM ED T eCW1 (Formerly [facility], 1928–1983) Oxycodone Hydrochloride 10 MG Oral Tablet 02/14/2021 12:00:00 AM ED T eCW1 (Formerly [facility], 1928–1983) Oxycodone Hydrochloride 10 MG Oral Tablet 01/12/2021 12:00:00 AM ED T eCW1 (Formerly [facility], 1928–1983) Oxycodone Hydrochloride 10 MG Oral Tablet 01/12/2021 12:00:00 AM ED T eCW1 (Formerly [facility], 1928–1983) Oxycodone Hydrochloride 10 MG Oral Tablet 01/12/2021 12:00:00 AM ED T eCW1 (Formerly [facility], 1928–1983) Oxycodone Hydrochloride 10 MG Oral Tablet 01/12/2021 12:00:00 AM ED T eCW1 (Formerly [facility], 1928–1983) Combivent Respimat 20-100 mcg/act 11/24/2020 12:00:00 AM EST eCW1 (Formerly [facility], 1928–1983) Combivent Respimat 20-100 mcg/act 11/24/2020 12:00:00 AM EST eCW1 (Formerly [facility], 1928–1983) Combivent Respimat 20-100 mcg/act 11/24/2020 12:00:00 AM EST eCW1 (Formerly [facility], 1928–1983) Combivent Respimat 20-100 mcg/act 11/24/2020 12:00:00 AM EST eCW1 (Formerly [facility], 1928–1983) Combivent Respimat 20-100 mcg/act 11/24/2020 12:00:00 AM EST eCW1 (Formerly [facility], 1928–1983) Combivent Respimat 20-100 mcg/act 11/24/2020 12:00:00 AM EST eCW1 (Formerly [facility], 1928–1983) Oxycodone Hydrochloride 10 MG Oral Tablet 11/16/2020 12:00:00 AM ES T eCW1 (Formerly [facility], 1928–1983) Fluconazole 200 MG Oral Tablet 11/16/2020 12:00:00 AM EST [facility] Oxycodone Hydrochloride 10 MG Oral Tablet 10/18/2020 12:00:00 AM ES T eCW1 (Formerly [facility], 1928–1983) Oxycodone Hydrochloride 10 MG Oral Tablet 10/18/2020 12:00:00 AM ES T eCW1 (Formerly [facility], 1928–1983) Oxycodone Hydrochloride 10 MG Oral Tablet 09/13/2020 12:00:00 AM ES T eCW1 (Formerly [facility], 1928–1983) Oxycodone Hydrochloride 10 MG Oral Tablet 09/13/2020 12:00:00 AM ES T eCW1 (Formerly [facility], 1928–1983) Oxycodone Hydrochloride 10 MG Oral Tablet 08/29/2020 12:00:00 AM ES T eCW1 (Formerly [facility], 1928–1983) Oxycodone Hydrochloride 10 MG Oral Tablet 08/29/2020 12:00:00 AM ES T eCW1 (Formerly [facility], 1928–1983) Oxycodone Hydrochloride 10 MG Oral Tablet 07/31/2020 12:00:00 AM ES T eCW1 (Formerly [facility], 1928–1983) Amlodipine 2.5 MG Oral Tablet 07/28/2020 12:00:00 AM EST [facility] Lidocaine 40 MG/ML Topical Cream 07/25/2020 12:00:00 AM EST [facility] Amlodipine 2.5 MG Oral Tablet 07/11/2020 12:00:00 AM EDT eCW1 (Formerly [facility], 1928–1983) metaxalone 800 MG Oral Tablet 07/04/2020 12:00:00 AM EDT [facility] Petrolatum 610 MG/ML Topical Cream 06/29/2020 12:00:00 AM EDT [facility] Oxycodone Hydrochloride 10 MG Oral Tablet 06/28/2020 12:00:00 AM ED T eCW1 (Formerly [facility], 1928–1983) Oxycodone Hydrochloride 10 MG Oral Tablet 06/28/2020 12:00:00 AM ED T eCW1 (Formerly [facility], 1928–1983) Oxycodone Hydrochloride 10 MG Oral Tablet 06/28/2020 12:00:00 AM ED T eCW1 (Formerly [facility], 1928–1983) Amlodipine 5 MG Oral Tablet 05/24/2020 12:00:00 AM EDT [facility] Losartan Potassium 100 MG Oral Tablet 05/24/2020 12:00:00 AM EDT [facility] XTAMPZA ER 9 MG C12A 06/24/2019 12:00:00 AM EDT [facility] Docusate Sodium 100 MG Oral Capsule 04/19/2019 12:00:00 AM EDT [facility] Fluconazole 200 MG Oral Tablet 05/04/2018 12:00:00 AM EDT [facility] Cyclobenzaprine hydrochloride 10 MG Oral Tablet 01/10/2014 12:00:00 AM EDT [facility] Baclofen 10 MG Oral Tablet 12/19/2010 12:00:00 AM EDT [facility] tadalafil 20 MG Oral Tablet [Kwadwo] 05/09/2009 12:00:00 AM EDT [facility] Rosuvastatin calcium 10 MG Oral Tablet [facility]
--- NOTE | 2021-08-17 04:47 | REPVR ---
PROCEDURE INFORMATION: Exam: XR Right Femur Exam date and time: 08/17/2021 2:33 AM Age: 66 years old Clinical indication: Other: Fall TECHNIQUE: Imaging protocol: XR Right femur. Views: 2 views. COMPARISON: CT scan of the pelvis from August 11, 2019. FINDINGS: Bones/joints: There is diffuse qualitative osteopenia. No fracture is identified. Visibility of the femoral head and femoral neck is limited, particularly on the lateral view. Soft tissues: The soft tissues appear unremarkable. IMPRESSION: 1. Qualitative osteopenia. 2. No fracture identified. However, there is limited visibility of the femoral head and neck, especially on the lateral view. If there is high clinical suspicion for a hip fracture, follow-up with cross-sectional imaging should be considered. Electronically signed by: Mili Spivey On 08/17/2021 04:46:31 AM
--- NOTE | 2021-08-17 04:49 | REPVR ---
PROCEDURE INFORMATION: Exam: XR Pelvis Exam date and time: 08/17/2021 2:33 AM Age: 66 years old Clinical indication: Other: Fall TECHNIQUE: Imaging protocol: XR pelvis. Views: 1 or 2 view. COMPARISON: CT Pelvis with contrast 08/11/2019 4:01 PM FINDINGS: Tubes, catheters and devices: There are surgical clips projecting over the lower lumbar spine, sacrum and the left hip. Bones/joints: There is no evidence of acute fracture or dislocation. There is mild sclerosis of the right femoral head, corresponding to the appearance on the prior CT scan. There is evidence of a laminectomy at L5. Soft tissues: Unremarkable. IMPRESSION: No acute fracture identified. Electronically signed by: Mili Spivey On 08/17/2021 04:49:34 AM
--- NOTE | 2021-08-17 04:51 | REPVR ---
PROCEDURE INFORMATION: Exam: XR Right Knee Exam date and time: 08/17/2021 2:33 AM Age: 66 years old Clinical indication: Other: Fall TECHNIQUE: Imaging protocol: XR Right knee. Views: 4 or more views. COMPARISON: CR Tibia, Fibula lower leg RIGHT 08/17/2021 1:44 AM FINDINGS: Limitations: Image quality is reduced on the oblique views, related to an unknown technical factor. Bones/joints: There is a physiologic amount of joint fluid. There is diffuse qualitative osteopenia. There is no evidence of acute fracture or dislocation. Joint spaces are preserved. No significant osteophytes or erosions are identified. Soft tissues: The soft tissues appear unremarkable. Vasculature: Vascular calcifications are noted. IMPRESSION: 1. Qualitative osteopenia. 2. No fracture or joint effusion identified. Electronically signed by: Mili Spivey On 08/17/2021 04:51:42 AM
--- NOTE | 2021-08-17 04:53 | REPVR ---
PROCEDURE INFORMATION: Exam: XR Right Ankle Exam date and time: 08/17/2021 2:33 AM Age: 66 years old Clinical indication: Other: Fall TECHNIQUE: Imaging protocol: XR Right ankle. Views: 3 or more views. COMPARISON: CR Ankle, complete 04/30/2019 12:40 PM FINDINGS: Limitations: The lateral view is limited by obliquity and by artifact from an overlying structure. Bones/joints: There is diffuse qualitative osteopenia. The ankle mortise is symmetric. There is no evidence of acute fracture or dislocation. Soft tissues: The soft tissues appear unremarkable. IMPRESSION: 1. Qualitative osteopenia, which can limit the sensitivity for detection of nondisplaced fractures. 2. No fracture identified. Electronically signed by: Mili Spivey On 08/17/2021 04:53:29 AM
--- NOTE | 2021-08-17 04:57 | REPVR ---
PROCEDURE INFORMATION: Exam: XR Right Tibia and Fibula Exam date and time: 08/17/2021 2:33 AM Age: 66 years old Clinical indication: Other: Fall TECHNIQUE: Imaging protocol: XR Right tibia and fibula. Views: 2 views. COMPARISON: CT-Tib/Fib WITHOUT CONTRAST RIGHT 04/10/2021 3:53 AM FINDINGS: Bones/joints: There is diffuse qualitative osteopenia. There is no evidence of acute fracture or dislocation. Periosteal thickening in the mid tibia and mid to distal fibula appears unchanged compared to the prior CT scan. Soft tissues: The soft tissues appear unremarkable. Vasculature: Vascular calcifications are noted. IMPRESSION: 1. Diffuse qualitative osteopenia. 2. No fracture identified. Electronically signed by: Mili Spivey On 08/17/2021 04:56:37 AM
[2021-08-17 06:41] VITALS: BP 142/75
--- NOTE | 2021-08-17 08:50 | REP ---
INDICATION: trauma. COMPARISON: Radiographs 08/17/2021. CT 08/17/2018, as well as other prior CT exams. TECHNIQUE: Axial CT right hip performed with sagittal and coronal reconstruction images. FINDINGS: There is no acute fracture or dislocation. There is mild joint space narrowing and subchondral sclerosis. There is a sclerotic appearance of the right femoral head which appears unchanged since 2014. Underlying avascular necrosis is not excluded. There is chronic erosive change of the lower sacrum and upper coccyx. This is likely due to chronic osteomyelitis. There is an overlying decubitus ulcer. A bypass graft is noted in the right lower quadrant superficial soft tissues, the graft extends toward the left inferiorly. IMPRESSION: No acute fracture or dislocation. Chronic sclerosis of the right femoral head could indicate underlying avascular necrosis although the appearance is not typical. There are findings compatible with chronic osteomyelitis of the right sacrum and coccyx, with an overlying decubitus ulcer. A preliminary report was provided by [facility] at the time of the exam. <Electronically signed by Miguel Ángel Ruiz > 08/17/21 [id number]
--- NOTE | 2021-08-17 08:53 | REP ---
INDICATION: trauma. COMPARISON: Radiographs 08/17/2021. TECHNIQUE: Axial CT right knee with sagittal and coronal reconstruction images. FINDINGS: There is diffuse osteopenia. There is no evidence of acute fracture or dislocation. Joint spaces appear well preserved. There is small amount of joint fluid. IMPRESSION: No acute fracture or dislocation. Osteopenia. A preliminary report was provided by [facility] at the time of the exam. <Electronically signed by Miguel Ángel Ruiz > 08/17/21 [id number]
--- NOTE | 2021-08-17 19:20 | ED PDOC ---
Post-Departure Follow-Up ct right hip faxed to dr witt for fu Kamran Morin MD Aug 17, 2021 19:20
== END 2021-08-17 09:23 | disposition home or self-care (01) ==
LOC: M ED 00:42
DX: M25.461 Effusion, right knee (principal); M85.89 Other specified disorders of bone density and structure, multiple sites; I11.0 Hypertensive heart disease with heart failure; E11.9 Type 2 diabetes mellitus without complications; I50.9 Heart failure, unspecified; F33.9 Major depressive disorder, recurrent, unspecified; K21.9 Gastro-esophageal reflux disease without esophagitis; Z79.899 Other long term (current) drug therapy; Z79.82 Long term (current) use of aspirin
CPT/HCPCS: 72190; 73552; 73564; 73590; 73610; 73700; 80048; 82550; 83735; 85025; 85610; 85730; 86850; 86900; 86901; 96374; 96375; 96376; 97161; 97530; 99284; J2270; J2405

== ENCOUNTER → 2021-10-05 | Outpatient (CLI) | payer OTHER, MEDICARE ==
[~2021-10-05] MED LIST changes: +LOSA25TA13 PO; -LOSA25TA14 PO
[2021-10-05 13:28] LABS: BASO # 0.1 10^3/uL (0.0-0.2); BASO % 0.6 % (0.0-1.0); EOS # 0.2 10^3/uL (0.0-0.5); EOS % 1.8 % (0.0-3.0); HEMOGLOBIN 14.5 g/dl (13.5-17.5); LYMPH # 1.4 10^3/uL (1.5-5.0); MEAN CORPUSCULAR HEMOGLOBIN 30.3 pg (27.0-33.0); MEAN CORPUSCULAR HGB CONC 30.9 g/dl (32.0-36.5); MEAN CORPUSCULAR VOLUME 98.3 fl (80.0-96.0); MONO % 10.1 % (2.0-8.0); NEUTROPHILS # 7.4 10^3/uL (1.5-8.5); NEUTROPHILS % 72.9 % (36.0-66.0); PLATELET COUNT, AUTOMATED 252 10^3/uL (150-450); RED BLOOD COUNT 4.78 10^6/uL (4.30-6.10); WHITE BLOOD COUNT 10.2 10^3/uL (4.0-10.0)
[2021-10-05 13:43] LABS: HEMOGLOBIN A1c 9.8 %
[2021-10-05 13:47] LABS: ALBUMIN 3.4 GM/DL (3.2-5.2); BILIRUBIN,TOTAL 0.3 MG/DL (0.2-1.0); CALCIUM LEVEL 8.9 MG/DL (8.8-10.2); CHOLESTEROL RISK RATIO 4.394 (<5); CREATININE FOR GFR 1.39 MG/DL (0.70-1.30); FREE T4 0.88 NG/DL (0.76-1.46); GLOMERULAR FILTRATION RATE 54.6 (>49); POTASSIUM SERUM 4.6 MEQ/L (3.5-5.1); THYROID STIMULATING HORMONE 1.51 uIU/ML (0.358-3.740); TOTAL PROTEIN 7.2 GM/DL (6.4-8.2)
[2021-10-05 13:49] LABS: TOTAL 25(OH) VITAMIN D 26.7 NG/ML (30.0-100.0)
[2021-10-05 13:50] LABS: PTH INTACT 60.9 PG/ML (18.5-88.0)
== END ==
LOC: M PLALAB 10:41
PROVIDERS: ATTEND Family Medicine
DX: E55.9 Vitamin D deficiency, unspecified (principal); D50.9 Iron deficiency anemia, unspecified; Z12.5 Encounter for screening for malignant neoplasm of prostate; E78.2 Mixed hyperlipidemia; K76.0 Fatty (change of) liver, not elsewhere classified
CPT/HCPCS: 36415; 80053; 80061; 82172; 82306; 82607; 83010; 83036; 83883; 83970; 84165; 84439; 84443; 85025; G0103

== ENCOUNTER → 2021-11-01 | Outpatient (CLI) | payer OTHER ==
[~2021-11-01] MED LIST changes: -FLUC200T2 PO; +FLUC200T4 PO
== END ==
LOC: M PAIN 11:30
PROVIDERS: ATTEND Nurse Practitioner Family
DX: M96.1 Postlaminectomy syndrome, not elsewhere classified (principal); I25.10 Atherosclerotic heart disease of native coronary artery without angina pectoris; E78.5 Hyperlipidemia, unspecified; E11.51 Type 2 diabetes mellitus with diabetic peripheral angiopathy without gangrene; J44.9 Chronic obstructive pulmonary disease, unspecified; G47.33 Obstructive sleep apnea (adult) (pediatric); N52.9 Male erectile dysfunction, unspecified; K21.9 Gastro-esophageal reflux disease without esophagitis; F33.9 Major depressive disorder, recurrent, unspecified; F41.1 Generalized anxiety disorder; E55.9 Vitamin D deficiency, unspecified; F17.210 Nicotine dependence, cigarettes, uncomplicated; Z79.82 Long term (current) use of aspirin; Z79.84 Long term (current) use of oral hypoglycemic drugs; Z79.891 Long term (current) use of opiate analgesic; Z79.899 Other long term (current) drug therapy; Z88.8 Allergy status to other drugs, medicaments and biological substances

== ENCOUNTER → 2021-11-23 | Outpatient (CLI) | payer OTHER | LOC: M PAIN 11:15 | PROVIDERS: ATTEND Anesthesiology | DX: M96.1 Postlaminectomy syndrome, not elsewhere classified (principal); I25.10 Atherosclerotic heart disease of native coronary artery without angina pectoris; E78.5 Hyperlipidemia, unspecified; E11.51 Type 2 diabetes mellitus with diabetic peripheral angiopathy without gangrene; J44.9 Chronic obstructive pulmonary disease, unspecified; G47.33 Obstructive sleep apnea (adult) (pediatric); N52.9 Male erectile dysfunction, unspecified; K21.9 Gastro-esophageal reflux disease without esophagitis; F33.9 Major depressive disorder, recurrent, unspecified; F41.1 Generalized anxiety disorder; E55.9 Vitamin D deficiency, unspecified; F17.210 Nicotine dependence, cigarettes, uncomplicated; Z79.82 Long term (current) use of aspirin; Z79.84 Long term (current) use of oral hypoglycemic drugs; Z79.891 Long term (current) use of opiate analgesic; Z79.899 Other long term (current) drug therapy; Z88.8 Allergy status to other drugs, medicaments and biological substances ==

== ENCOUNTER 2021-11-27 08:56 | Outpatient (CLI) | payer OTHER ==
[~2021-11-27] VITALS: Ht 170.2 cm; Wt 83.0 kg
[2021-11-27 09:19] VITALS: BP 137/78
[2021-11-27] MEDS ORDERED: ZOLEDRONIC ACID 5 MG in IV 1 EA IV ONE (09:30)
[2021-11-27 10:00] VITALS: BP 114/69
== END 2021-11-27 10:00 | disposition home or self-care (01) ==
LOC: M INFU 08:56
PROVIDERS: ATTEND Family Medicine
DX: M85.80 Other specified disorders of bone density and structure, unspecified site (principal); Z88.8 Allergy status to other drugs, medicaments and biological substances
CPT/HCPCS: 96365; J3489

== ENCOUNTER → 2022-02-21 | Outpatient (CLI) | payer OTHER ==
[~2022-02-21] MED LIST changes: +GLIM1TAB4 PO
== END ==
LOC: M PAIN 11:30
PROVIDERS: ATTEND Anesthesiology
DX: Z53.21 Procedure and treatment not carried out due to patient leaving prior to being seen by health care provider (principal)

== ENCOUNTER 2022-02-22 03:41 | Inpatient (IN) | payer OTHER ==
[2022-02-22] VITALS (8 sets, daily range): BP systolic 91–103; BP diastolic 61–70; O2SAT 86–98
[~2022-02-22] VITALS: Ht 175.3 cm; Wt 100.4 kg
[~2022-02-22 03:41] MED LIST changes: -GLIM1TAB4 PO
[2022-02-22] MEDS: NS 1,000 ML IV SCH ×4 (03:55→23:26)
[2022-02-22] MEDS ORDERED: MORPHINE 4 MG/ML 1ML VIAL/SYRINGE IV ONE ×2 (04:00→05:25)
[2022-02-22 04:20] LABS: BASO # 0.1 10^3/uL (0.0-0.2); BASO % 0.3 % (0.0-1.0); EOS # 0.1 10^3/uL (0.0-0.5); HEMATOCRIT 46.7 % (42.0-52.0); LYMPH # 1.2 10^3/uL (1.5-5.0); MEAN CORPUSCULAR HEMOGLOBIN 31.3 pg (27.0-33.0); MEAN CORPUSCULAR HGB CONC 32.1 g/dl (32.0-36.5); MEAN CORPUSCULAR VOLUME 97.5 fl (80.0-96.0); MONO % 6.7 % (2.0-8.0); NEUTROPHILS # 12.3 10^3/uL (1.5-8.5); NEUTROPHILS % 83.5 % (36.0-66.0); PLATELET COUNT, AUTOMATED 226 10^3/uL (150-450); RED BLOOD COUNT 4.79 10^6/uL (4.30-6.10); WHITE BLOOD COUNT 14.7 10^3/uL (4.0-10.0)
[2022-02-22] MEDS: GASTROGRAFIN SOLUTION 30ML PO SCH ×2 (04:42→05:08)
[2022-02-22 04:53] LABS: ALBUMIN 3.7 GM/DL (3.2-5.2); BILIRUBIN,DIRECT 0.2 MG/DL (0.0-0.2); BILIRUBIN,TOTAL 0.3 MG/DL (0.2-1.0); CALCIUM LEVEL 8.9 MG/DL (8.8-10.2); CREATININE FOR GFR 1.56 MG/DL (0.70-1.30); GLOMERULAR FILTRATION RATE 47.8 (>49); POTASSIUM SERUM 4.9 MEQ/L (3.5-5.1); TOTAL PROTEIN 7.7 GM/DL (6.4-8.2)
[2022-02-22] MEDS ORDERED: ISOVUE-370 76% 100ML VIAL As Ordered ONE (05:31)
[2022-02-22] MEDS: MORPHINE 2 MG/ML 1ML VIAL IV PRN ×2 (08:04→12:02)
[2022-02-22] MEDS ORDERED: fentaNYL 100 MCG/2 ML INJECTION IV ONE ×2 (08:40→09:55)
[2022-02-22] MEDS ORDERED: GABA600T4 PO (08:43)
[2022-02-22] MEDS ORDERED: GLIM1TAB4 PO (08:43)
[2022-02-22] MEDS ORDERED: HOME MED LIST COMPLETE! XX SCH (08:45)
[2022-02-22 09:39] LABS: RSV AMPLIFICATION NEGATIVE (NEGATIVE)
[2022-02-22] MEDS ORDERED: GLUCAGON INJ 1MG VIAL SC PRN (10:10)
[2022-02-22] MEDS ORDERED: GLUCOSE 4GM CHEW TABLET PO PRN (10:10)
[2022-02-22] MEDS ORDERED: ONDANSETRON 4MG/2ML VIAL IV PRN (10:10)
[2022-02-22] MEDS ORDERED: COMBIVENT RESPIMAT 100-20MCG INHALER 4GM INH PRN (10:10)
[2022-02-22] MEDS ORDERED: DEXTROSE 50% 50 ML SYRINGE IV PRN (10:10)
[2022-02-22] MEDS: CIPROFLOXACIN 400 MG in IV 1 EA IV SCH (12:05)
[2022-02-22] MEDS: ROSUVASTATIN 10 MG TAB (CRESTOR) PO SCH (13:24)
[2022-02-22] MEDS: PARoxetine 20MG TABLET PO SCH (13:25)
[2022-02-22] MEDS: INSULIN LISPRO (NovoLOG) PER UNIT SC SCH ×2 (13:25→18:00)
[2022-02-22] MEDS: FERROUS SULFATE 325MG TAB PO SCH (13:25)
[2022-02-22] MEDS: metroNIDAZOLE 500 MG in IV 1 EA IV SCH ×2 (13:31→21:10)
[2022-02-22] MEDS ORDERED: MORPHINE 4 MG/ML 1ML VIAL/SYRINGE IV PRN (14:10)
[2022-02-22] MEDS: GABAPENTIN 300 MG CAP PO SCH ×2 (15:57→20:08)
[2022-02-22] MEDS: HYDROmorphone HCL 2MG/ML 1ML VIAL IV PRN ×2 (17:02)
[2022-02-22] MEDS: HEPARIN SOD (PORCINE) 5000UNITS/ML 1ML VIAL/SYRINGE SQ SCH (20:08)
[2022-02-22] MEDS: FLUCONAZOLE 200 MG in IV 1 EA IV SCH (20:08)
[2022-02-23] VITALS (30 sets, daily range): BP systolic 102–126; BP diastolic 51–68; O2SAT 89–96
[2022-02-23] MEDS: CIPROFLOXACIN 400 MG in IV 1 EA IV SCH ×2 (00:39→12:17)
[2022-02-23] MEDS: NS 1,000 ML IV SCH (05:04)
[2022-02-23] MEDS: metroNIDAZOLE 500 MG in IV 1 EA IV SCH ×3 (05:04→20:14)
[2022-02-23 05:41] LABS: HEMATOCRIT 45.5 % (42.0-52.0); MEAN CORPUSCULAR HEMOGLOBIN 30.8 pg (27.0-33.0); MEAN CORPUSCULAR HGB CONC 30.8 g/dl (32.0-36.5); MEAN CORPUSCULAR VOLUME 100.2 fl (80.0-96.0); PLATELET COUNT, AUTOMATED 185 10^3/uL (150-450); RED BLOOD COUNT 4.54 10^6/uL (4.30-6.10); WHITE BLOOD COUNT 10.5 10^3/uL (4.0-10.0)
[2022-02-23] MEDS: INSULIN LISPRO (NovoLOG) PER UNIT SC SCH ×4 (05:47→16:43)
[2022-02-23] MEDS: HYDROmorphone HCL 2MG/ML 1ML VIAL IV PRN ×3 (05:57→20:29)
[2022-02-23 06:03] LABS: CALCIUM LEVEL 8.2 MG/DL (8.8-10.2); CREATININE FOR GFR 1.47 MG/DL (0.70-1.30); GLOMERULAR FILTRATION RATE 51.2 (>49); MAGNESIUM LEVEL 2.4 MG/DL (1.8-2.4); POTASSIUM SERUM 5.4 MEQ/L (3.5-5.1)
[2022-02-23] MEDS ORDERED: NS 500 ML IV ONE (06:20)
[2022-02-23] MEDS ORDERED: CALCIUM GLUCONATE 1,000 MG in D5W MINI-BAG PLUS 100 ML IV ONE (06:20)
[2022-02-23] MEDS: ROSUVASTATIN 10 MG TAB (CRESTOR) PO SCH (09:00)
[2022-02-23] MEDS: FERROUS SULFATE 325MG TAB PO SCH (09:00)
[2022-02-23] MEDS: PARoxetine 20MG TABLET PO SCH (09:10)
[2022-02-23] MEDS: D5W/0.45% SODIUM CHLORIDE 1,000 ML IV SCH ×2 (09:11→20:14)
[2022-02-23] MEDS: GABAPENTIN 300 MG CAP PO SCH ×3 (09:11→20:14)
[2022-02-23] MEDS: HEPARIN SOD (PORCINE) 5000UNITS/ML 1ML VIAL/SYRINGE SQ SCH ×2 (09:50→20:14)
[2022-02-23] MEDS: FLUCONAZOLE 200 MG in IV 1 EA IV SCH (17:28)
[2022-02-24] VITALS (27 sets, daily range): BP systolic 97–124; BP diastolic 56–88; O2SAT 94–97
[2022-02-24] MEDS: CIPROFLOXACIN 400 MG in IV 1 EA IV SCH ×3 (00:06→23:56)
[2022-02-24] MEDS: HYDROmorphone HCL 2MG/ML 1ML VIAL IV PRN ×4 (00:58→23:57)
[2022-02-24] MEDS: metroNIDAZOLE 500 MG in IV 1 EA IV SCH ×3 (05:10→23:11)
[2022-02-24] MEDS: INSULIN LISPRO (NovoLOG) PER UNIT SC SCH ×5 (06:00→23:31)
[2022-02-24 06:15] LABS: MEAN CORPUSCULAR HEMOGLOBIN 31.3 pg (27.0-33.0); MEAN CORPUSCULAR HGB CONC 31.1 g/dl (32.0-36.5); MEAN CORPUSCULAR VOLUME 100.8 fl (80.0-96.0); PLATELET COUNT, AUTOMATED 166 10^3/uL (150-450); RED BLOOD COUNT 3.77 10^6/uL (4.30-6.10); WHITE BLOOD COUNT 7.6 10^3/uL (4.0-10.0)
[2022-02-24 06:19] LABS: HEMOGLOBIN 11.8 g/dl (13.5-17.5)
[2022-02-24 06:39] LABS: BLOOD UREA NITROGEN 13 MG/DL (7-18); CALCIUM LEVEL 7.7 MG/DL (8.8-10.2); CARBON DIOXIDE LEVEL 24 MEQ/L (21-32); CHLORIDE LEVEL 114 MEQ/L (98-107); CREATININE FOR GFR 1.12 MG/DL (0.70-1.30); GLOMERULAR FILTRATION RATE > 60.0 (>49); GLUCOSE, FASTING 96 MG/DL (70-100); POTASSIUM SERUM 3.6 MEQ/L (3.5-5.1); SODIUM LEVEL 143 MEQ/L (136-145)
[2022-02-24] MEDS: FERROUS SULFATE 325MG TAB PO SCH (09:00)
[2022-02-24] MEDS: PARoxetine 20MG TABLET PO SCH (09:00)
[2022-02-24] MEDS: ROSUVASTATIN 10 MG TAB (CRESTOR) PO SCH (09:00)
[2022-02-24] MEDS: GABAPENTIN 300 MG CAP PO SCH ×3 (09:00→23:11)
[2022-02-24] MEDS: D5W/0.45% SODIUM CHLORIDE 1,000 ML IV SCH ×2 (09:27→18:25)
[2022-02-24] MEDS: HEPARIN SOD (PORCINE) 5000UNITS/ML 1ML VIAL/SYRINGE SQ SCH ×3 (09:36→23:12)
[2022-02-24] MEDS: DOCUSATE SODIUM 100MG CAPSULE PO SCH ×2 (12:20→23:11)
[2022-02-24] MEDS: SENNA 8.6 MG TAB (SENOKOT) PO SCH ×2 (12:20→23:11)
[2022-02-24] MEDS: FLUCONAZOLE 200 MG in IV 1 EA IV SCH (17:09)
[2022-02-24] MEDS: PANTOPRAZOLE 40MG VIAL IV SCH (18:24)
[2022-02-25] VITALS (7 sets, daily range): BP systolic 110–149; BP diastolic 58–72
[2022-02-25] MEDS: HYDROmorphone HCL 2MG/ML 1ML VIAL IV PRN ×3 (03:02→22:19)
[2022-02-25] MEDS: D5W/0.45% SODIUM CHLORIDE 1,000 ML IV SCH (05:27)
[2022-02-25] MEDS: INSULIN LISPRO (NovoLOG) PER UNIT SC SCH ×3 (05:27→17:30)
[2022-02-25] MEDS: metroNIDAZOLE 500 MG in IV 1 EA IV SCH (05:27)
[2022-02-25] MEDS: PANTOPRAZOLE 40MG VIAL IV SCH (05:27)
[2022-02-25 05:41] LABS: HEMATOCRIT 39.8 % (42.0-52.0); HEMOGLOBIN 12.3 g/dl (13.5-17.5); MEAN CORPUSCULAR HEMOGLOBIN 31.3 pg (27.0-33.0); MEAN CORPUSCULAR HGB CONC 30.9 g/dl (32.0-36.5); MEAN CORPUSCULAR VOLUME 101.3 fl (80.0-96.0); PLATELET COUNT, AUTOMATED 174 10^3/uL (150-450); RED BLOOD COUNT 3.93 10^6/uL (4.30-6.10); WHITE BLOOD COUNT 7.1 10^3/uL (4.0-10.0)
[2022-02-25 06:12] LABS: BLOOD UREA NITROGEN 9 MG/DL (7-18); CARBON DIOXIDE LEVEL 29 MEQ/L (21-32); CHLORIDE LEVEL 111 MEQ/L (98-107); CREATININE FOR GFR 1.11 MG/DL (0.70-1.30); GLOMERULAR FILTRATION RATE > 60.0 (>49); GLUCOSE, FASTING 131 MG/DL (70-100); POTASSIUM SERUM 4.1 MEQ/L (3.5-5.1); SODIUM LEVEL 143 MEQ/L (136-145)
[2022-02-25] MEDS: DOCUSATE SODIUM 100MG CAPSULE PO SCH ×2 (08:49→21:39)
[2022-02-25] MEDS: FERROUS SULFATE 325MG TAB PO SCH (08:50)
[2022-02-25] MEDS: PARoxetine 20MG TABLET PO SCH (08:50)
[2022-02-25] MEDS: HEPARIN SOD (PORCINE) 5000UNITS/ML 1ML VIAL/SYRINGE SQ SCH ×2 (09:00→21:00)
[2022-02-25] MEDS: SENNA 8.6 MG TAB (SENOKOT) PO SCH ×2 (09:00→21:40)
[2022-02-25] MEDS: GABAPENTIN 300 MG CAP PO SCH ×3 (09:00→21:39)
[2022-02-25] MEDS: ROSUVASTATIN 10 MG TAB (CRESTOR) PO SCH (09:00)
[2022-02-25] MEDS ORDERED: oxyCODONE 5MG TAB PO PRN (11:25)
[2022-02-25] MEDS: CIPROFLOXACIN 500MG TABLET PO SCH ×2 (12:38→18:20)
[2022-02-25] MEDS: FLUCONAZOLE 100 MG TAB PO SCH ×2 (12:38→21:39)
[2022-02-25] MEDS ORDERED: INSULIN LISPRO (NovoLOG) PER UNIT SC SCH (21:00)
[2022-02-25] MEDS: PANTOPRAZOLE 40MG TAB (PROTONIX) PO SCH (21:40)
[2022-02-26] MEDS: CIPROFLOXACIN 500MG TABLET PO SCH (05:34)
[2022-02-26 06:00] VITALS: BP 113/53
[2022-02-26 06:15] LABS: HEMATOCRIT 40.7 % (42.0-52.0); HEMOGLOBIN 12.8 g/dl (13.5-17.5); MEAN CORPUSCULAR HGB CONC 31.4 g/dl (32.0-36.5); MEAN CORPUSCULAR VOLUME 98.5 fl (80.0-96.0); PLATELET COUNT, AUTOMATED 180 10^3/uL (150-450); RED BLOOD COUNT 4.13 10^6/uL (4.30-6.10); WHITE BLOOD COUNT 5.7 10^3/uL (4.0-10.0)
[2022-02-26 06:45] LABS: BLOOD UREA NITROGEN 7 MG/DL (7-18); CARBON DIOXIDE LEVEL 26 MEQ/L (21-32); CHLORIDE LEVEL 112 MEQ/L (98-107); CREATININE FOR GFR 1.12 MG/DL (0.70-1.30); GLOMERULAR FILTRATION RATE > 60.0 (>49); GLUCOSE, FASTING 95 MG/DL (70-100); POTASSIUM SERUM 3.5 MEQ/L (3.5-5.1); SODIUM LEVEL 142 MEQ/L (136-145)
[2022-02-26] MEDS: INSULIN LISPRO (NovoLOG) PER UNIT SC SCH ×2 (07:30→12:00)
[2022-02-26] MEDS: HEPARIN SOD (PORCINE) 5000UNITS/ML 1ML VIAL/SYRINGE SQ SCH ×2 (09:00→09:43)
[2022-02-26] MEDS: SENNA 8.6 MG TAB (SENOKOT) PO SCH (09:42)
[2022-02-26] MEDS: FLUCONAZOLE 100 MG TAB PO SCH (09:42)
[2022-02-26] MEDS: PARoxetine 20MG TABLET PO SCH (09:42)
[2022-02-26] MEDS: GABAPENTIN 300 MG CAP PO SCH (09:43)
[2022-02-26] MEDS: DOCUSATE SODIUM 100MG CAPSULE PO SCH (09:43)
[2022-02-26] MEDS: PANTOPRAZOLE 40MG TAB (PROTONIX) PO SCH (09:43)
[2022-02-26] MEDS: ROSUVASTATIN 10 MG TAB (CRESTOR) PO SCH (09:43)
[2022-02-26] MEDS: FERROUS SULFATE 325MG TAB PO SCH (09:43)
[2022-02-26] MEDS ORDERED: SENN18TA PO (13:16)
[2022-02-26] MEDS ORDERED: COLA100C5 PO (13:16)
[2022-02-26] MEDS ORDERED: CEFU50TA PO (13:20)
[2022-02-26 14:00] VITALS: BP 138/74
== END 2022-02-26 15:45 | disposition home or self-care (01) | DRG 389 ==
LOC: M ED 03:41 → M ED INP 10:08 → M PCU 18:54 → M MSPAV 02-25 21:59
PROVIDERS: ADMIT Internal Medicine; ATTEND Internal Medicine
DX: K56.50 Intestinal adhesions [bands], unspecified as to partial versus complete obstruction (principal); N39.0 Urinary tract infection, site not specified; B37.89 Other sites of candidiasis; E11.22 Type 2 diabetes mellitus with diabetic chronic kidney disease; I25.10 Atherosclerotic heart disease of native coronary artery without angina pectoris; I12.9 Hypertensive chronic kidney disease with stage 1 through stage 4 chronic kidney disease, or unspecified chronic kidney disease; E78.5 Hyperlipidemia, unspecified; K21.9 Gastro-esophageal reflux disease without esophagitis; J44.9 Chronic obstructive pulmonary disease, unspecified; F32.A Depression, unspecified; F41.9 Anxiety disorder, unspecified; N18.9 Chronic kidney disease, unspecified; Z20.822 Contact with and (suspected) exposure to COVID-19; Z79.82 Long term (current) use of aspirin; Z79.84 Long term (current) use of oral hypoglycemic drugs; Z79.891 Long term (current) use of opiate analgesic; Z79.899 Other long term (current) drug therapy; Z88.5 Allergy status to narcotic agent; Z88.8 Allergy status to other drugs, medicaments and biological substances; Z99.3 Dependence on wheelchair; Z93.3 Colostomy status; Z95.810 Presence of automatic (implantable) cardiac defibrillator; G47.33 Obstructive sleep apnea (adult) (pediatric); Z90.49 Acquired absence of other specified parts of digestive tract; F17.210 Nicotine dependence, cigarettes, uncomplicated; B96.1 Klebsiella pneumoniae [K. pneumoniae] as the cause of diseases classified elsewhere; M54.9 Dorsalgia, unspecified; Z95.1 Presence of aortocoronary bypass graft; I25.2 Old myocardial infarction; D72.829 Elevated white blood cell count, unspecified; I73.9 Peripheral vascular disease, unspecified; N52.9 Male erectile dysfunction, unspecified; E55.9 Vitamin D deficiency, unspecified; E11.51 Type 2 diabetes mellitus with diabetic peripheral angiopathy without gangrene; M10.9 Gout, unspecified

== ENCOUNTER → 2022-03-05 | Outpatient (REF) | payer OTHER ==
[~2022-03-05] MED LIST changes: +CEFU50TA PO; +COLA100C5 PO; +GLIM1TAB4 PO; +SENN18TA PO
== END ==
LOC: M SFHCPLAZ 10:18
PROVIDERS: ATTEND Family Medicine
DX: L82.1 Other seborrheic keratosis (principal); L56.8 Other specified acute skin changes due to ultraviolet radiation

== ENCOUNTER → 2022-04-03 | Outpatient (CLI) | payer OTHER | LOC: M PAIN 11:30 | PROVIDERS: ATTEND Anesthesiology | DX: M54.50 Low back pain, unspecified (principal); L98.429 Non-pressure chronic ulcer of back with unspecified severity; I25.10 Atherosclerotic heart disease of native coronary artery without angina pectoris; E78.5 Hyperlipidemia, unspecified; E11.51 Type 2 diabetes mellitus with diabetic peripheral angiopathy without gangrene; E11.622 Type 2 diabetes mellitus with other skin ulcer; J44.9 Chronic obstructive pulmonary disease, unspecified; G47.33 Obstructive sleep apnea (adult) (pediatric); N52.9 Male erectile dysfunction, unspecified; K21.9 Gastro-esophageal reflux disease without esophagitis; F33.9 Major depressive disorder, recurrent, unspecified; F41.1 Generalized anxiety disorder; E55.9 Vitamin D deficiency, unspecified; Z90.49 Acquired absence of other specified parts of digestive tract; M51.36 Other intervertebral disc degeneration, lumbar region; N32.81 Overactive bladder; F17.210 Nicotine dependence, cigarettes, uncomplicated; Z79.891 Long term (current) use of opiate analgesic; Z79.82 Long term (current) use of aspirin; Z79.899 Other long term (current) drug therapy; Z79.84 Long term (current) use of oral hypoglycemic drugs; Z88.8 Allergy status to other drugs, medicaments and biological substances ==

== ENCOUNTER → 2022-05-24 | Outpatient (CLI) | payer OTHER, MEDICARE | LOC: M RAD 13:15 | PROVIDERS: ATTEND Podiatrist Foot & Ankle Surgery | DX: I73.9 Peripheral vascular disease, unspecified (principal) ==

== ENCOUNTER → 2022-06-26 | Outpatient (CLI) | payer OTHER | LOC: M PAIN 10:30 | PROVIDERS: ATTEND Nurse Practitioner Family | DX: M47.816 Spondylosis without myelopathy or radiculopathy, lumbar region (principal); I25.10 Atherosclerotic heart disease of native coronary artery without angina pectoris; E78.5 Hyperlipidemia, unspecified; E11.51 Type 2 diabetes mellitus with diabetic peripheral angiopathy without gangrene; J44.9 Chronic obstructive pulmonary disease, unspecified; G47.33 Obstructive sleep apnea (adult) (pediatric); N52.9 Male erectile dysfunction, unspecified; K21.9 Gastro-esophageal reflux disease without esophagitis; F32.9 Major depressive disorder, single episode, unspecified; F41.1 Generalized anxiety disorder; E55.9 Vitamin D deficiency, unspecified; Z95.0 Presence of cardiac pacemaker; Z98.1 Arthrodesis status; Z90.49 Acquired absence of other specified parts of digestive tract; F17.210 Nicotine dependence, cigarettes, uncomplicated; Z79.82 Long term (current) use of aspirin; Z79.891 Long term (current) use of opiate analgesic; Z79.84 Long term (current) use of oral hypoglycemic drugs; Z88.8 Allergy status to other drugs, medicaments and biological substances ==

== ENCOUNTER → 2022-07-05 | Outpatient (CLI) | payer OTHER, MEDICARE ==
[2022-07-05 16:12] LABS: BASO # 0.1 10^3/uL (0.0-0.2); BASO % 0.4 % (0.0-1.0); EOS # 0.2 10^3/uL (0.0-0.5); EOS % 1.4 % (0.0-3.0); HEMATOCRIT 46.5 % (42.0-52.0); HEMOGLOBIN 14.2 g/dl (13.5-17.5); LYMPH # 1.5 10^3/uL (1.5-5.0); LYMPH % 11.6 % (24.0-44.0); MEAN CORPUSCULAR HGB CONC 30.5 g/dl (32.0-36.5); MEAN CORPUSCULAR VOLUME 98.1 fl (80.0-96.0); MONO # 1.2 10^3/uL (0.0-0.8); MONO % 9.1 % (2.0-8.0); PLATELET COUNT, AUTOMATED 254 10^3/uL (150-450); RED BLOOD COUNT 4.74 10^6/uL (4.30-6.10)
[2022-07-05 16:26] LABS: INR 0.94; PROTHROMBIN TIME 12.8 SECONDS (12.5-14.5)
[2022-07-05 16:27] LABS: PARTIAL THROMBOPLASTIN TIME 27.2 SECONDS (24.8-34.2)
[2022-07-05 16:29] LABS: HEMOGLOBIN A1c 6.9 %
[2022-07-05 16:43] LABS: ALBUMIN 3.4 GM/DL (3.2-5.2); BILIRUBIN,TOTAL 0.4 MG/DL (0.2-1.0); CALCIUM LEVEL 9.1 MG/DL (8.8-10.2); CREATININE FOR GFR 1.53 MG/DL (0.70-1.30); GLOMERULAR FILTRATION RATE 48.7 (>49); POTASSIUM SERUM 4.5 MEQ/L (3.5-5.1); TOTAL PROTEIN 7.8 GM/DL (6.4-8.2)
== END ==
LOC: M PLALAB 14:32 → M LAB 15:38
PROVIDERS: ATTEND Family Medicine
DX: D50.9 Iron deficiency anemia, unspecified (principal); K76.0 Fatty (change of) liver, not elsewhere classified; I25.5 Ischemic cardiomyopathy; E11.8 Type 2 diabetes mellitus with unspecified complications

== ENCOUNTER → 2022-07-05 | Outpatient (CLI) | payer OTHER, MEDICARE | LOC: M PLALAB 14:27 → M LAB 14:27 | PROVIDERS: ATTEND Physician Assistant | DX: J44.1 Chronic obstructive pulmonary disease with (acute) exacerbation (principal); R06.02 Shortness of breath; R05.1 Acute cough ==

== ENCOUNTER → 2022-07-06 | Outpatient (REF) | payer OTHER, MEDICARE | LOC: M LAB REF 11:29 | PROVIDERS: ATTEND Physician Assistant | DX: J44.1 Chronic obstructive pulmonary disease with (acute) exacerbation (principal) ==

== ENCOUNTER → 2022-08-14 | Outpatient (CLI) | payer OTHER | LOC: M PLAIMG 10:40 | PROVIDERS: ATTEND Surgery | DX: L89.154 Pressure ulcer of sacral region, stage 4 (principal) ==

== ENCOUNTER → 2022-08-27 | Outpatient (REF) | payer OTHER | LOC: M SFHCPLAZ 12:57 | PROVIDERS: ATTEND Family Medicine | DX: J44.1 Chronic obstructive pulmonary disease with (acute) exacerbation (principal) ==

== ENCOUNTER → 2022-10-07 | Outpatient (CLI) | payer MEDICARE, OTHER ==
[~2022-10-07] MED LIST changes: -OXYC-403 PO; +OXYC-673 PO
[2022-10-07 15:58] LABS: ALBUMIN 3.5 G/DL (3.2-5.2); BLOOD UREA NITROGEN 25 MG/DL (9-23); CALCIUM LEVEL 9.3 MG/DL (8.3-10.6); CARBON DIOXIDE LEVEL 29 MMOL/L (20-31); CHLORIDE LEVEL 104 MMOL/L (98-107); CREATININE FOR GFR 1.24 MG/DL (0.70-1.30); GLOMERULAR FILTRATION RATE > 60.0 (>49); GLUCOSE, FASTING 126 MG/DL (74-106); POTASSIUM SERUM 4.7 MMOL/L (3.5-5.1); SODIUM LEVEL 141 MMOL/L (136-145)
== END ==
LOC: M PLALAB 13:28
PROVIDERS: ATTEND Physician Assistant
DX: E11.8 Type 2 diabetes mellitus with unspecified complications (principal)

== ENCOUNTER → 2022-10-09 | Outpatient (CLI) | payer MEDICARE, OTHER ==
[~2022-10-09] MED LIST changes: +ISOVUE-370 76% 100ML VIAL As Ordered ONE
== END ==
LOC: M RAD 12:33
PROVIDERS: ATTEND Physician Assistant
DX: J44.1 Chronic obstructive pulmonary disease with (acute) exacerbation (principal); R05.3 Chronic cough; J47.1 Bronchiectasis with (acute) exacerbation
CPT/HCPCS: 71260; Q9967

== ENCOUNTER → 2022-10-28 | Outpatient (CLI) | payer OTHER ==
[~2022-10-28] MED LIST changes: -ISOVUE-370 76% 100ML VIAL As Ordered ONE; +OXYC-403 PO; -OXYC-673 PO
== END ==
LOC: M PAIN 10:30
PROVIDERS: ATTEND Nurse Practitioner Family
DX: M47.816 Spondylosis without myelopathy or radiculopathy, lumbar region (principal); G89.29 Other chronic pain; I25.10 Atherosclerotic heart disease of native coronary artery without angina pectoris; E78.5 Hyperlipidemia, unspecified; E11.51 Type 2 diabetes mellitus with diabetic peripheral angiopathy without gangrene; J44.9 Chronic obstructive pulmonary disease, unspecified; G47.33 Obstructive sleep apnea (adult) (pediatric); N52.9 Male erectile dysfunction, unspecified; K21.9 Gastro-esophageal reflux disease without esophagitis; F32.9 Major depressive disorder, single episode, unspecified; F41.1 Generalized anxiety disorder; F17.210 Nicotine dependence, cigarettes, uncomplicated; E55.9 Vitamin D deficiency, unspecified; Z95.0 Presence of cardiac pacemaker; Z98.1 Arthrodesis status; Z79.891 Long term (current) use of opiate analgesic; Z90.49 Acquired absence of other specified parts of digestive tract; Z79.82 Long term (current) use of aspirin; Z79.84 Long term (current) use of oral hypoglycemic drugs; Z88.8 Allergy status to other drugs, medicaments and biological substances

== ENCOUNTER → 2022-11-11 | Outpatient (CLI) | payer MEDICARE, OTHER ==
[~2022-11-11] MED LIST changes: -OXYC-403 PO; +OXYC-673 PO
== END ==
LOC: M PLARAD 07:45
PROVIDERS: ATTEND Family Medicine
DX: R91.1 Solitary pulmonary nodule (principal)
CPT/HCPCS: 78815; A9552

== ENCOUNTER → 2022-11-14 | Outpatient (REF) | payer MEDICARE, OTHER | LOC: M SFHCPLAZ 13:33 | PROVIDERS: ATTEND Family Medicine | DX: C44.629 Squamous cell carcinoma of skin of left upper limb, including shoulder (principal) ==

== ENCOUNTER → 2022-11-21 | Outpatient (CLI) | payer MEDICARE, OTHER | LOC: M RAD 08:51 | PROVIDERS: ATTEND Family Medicine | DX: N18.31 Chronic kidney disease, stage 3a (principal) ==

== ENCOUNTER 2022-11-28 14:52 | Outpatient (CLI) | payer MEDICARE, OTHER ==
[~2022-11-28] VITALS: Ht 170.2 cm; Wt 83.0 kg
[2022-11-28 15:25] VITALS: BP 139/86
[2022-11-28] MEDS ORDERED: ZOLEDRONIC ACID 5 MG in IV 1 EA IV ONE (16:00)
[2022-11-28 16:07] VITALS: BP 114/65
== END 2022-11-28 16:05 | disposition home or self-care (01) ==
LOC: M INFU 14:52
PROVIDERS: ATTEND Family Medicine
DX: M85.89 Other specified disorders of bone density and structure, multiple sites (principal); Z88.3 Allergy status to other anti-infective agents; Z88.8 Allergy status to other drugs, medicaments and biological substances
CPT/HCPCS: 96365; J3489

== ENCOUNTER → 2022-12-13 | Outpatient (REF) | payer OTHER, MEDICARE | LOC: M SFHCWOUN 08:35 | PROVIDERS: ATTEND Surgery | DX: L89.154 Pressure ulcer of sacral region, stage 4 (principal) ==

== ENCOUNTER → 2022-12-27 | Outpatient (REF) | payer MEDICARE, OTHER | LOC: M SFHCPLAZ 16:47 | PROVIDERS: ATTEND Physician Assistant | DX: R30.0 Dysuria (principal) ==

== ENCOUNTER → 2023-01-27 | Outpatient (CLI) | payer OTHER | LOC: M PAIN 11:00 | PROVIDERS: ATTEND Nurse Practitioner Family | DX: M47.816 Spondylosis without myelopathy or radiculopathy, lumbar region (principal); G89.29 Other chronic pain; E11.9 Type 2 diabetes mellitus without complications; J44.9 Chronic obstructive pulmonary disease, unspecified; G47.33 Obstructive sleep apnea (adult) (pediatric); K21.9 Gastro-esophageal reflux disease without esophagitis; F17.210 Nicotine dependence, cigarettes, uncomplicated; Z86.59 Personal history of other mental and behavioral disorders; Z88.8 Allergy status to other drugs, medicaments and biological substances; Z79.82 Long term (current) use of aspirin; Z79.84 Long term (current) use of oral hypoglycemic drugs; Z79.899 Other long term (current) drug therapy ==

== ENCOUNTER → 2023-04-29 | Outpatient (CLI) | payer OTHER ==
[~2023-04-29] MED LIST changes: -AMIT25TA17 PO; +AMIT25TA19 PO; -GABA-283 PO; +GABA-284 PO; +SENN-111 PO; -SENN18TA PO
[2023-04-29 15:57] LABS: BASO # 0.1 10^3/uL (0.0-0.2); BASO % 0.7 % (0.0-1.0); EOS # 0.3 10^3/uL (0.0-0.5); EOS % 2.7 % (0.0-3.0); HEMATOCRIT 45.8 % (42.0-52.0); LYMPH # 1.6 10^3/uL (1.5-5.0); LYMPH % 15.8 % (24.0-44.0); MEAN CORPUSCULAR HGB CONC 30.6 g/dl (32.0-36.5); MEAN CORPUSCULAR VOLUME 98.3 fl (80.0-96.0); MONO % 10.4 % (2.0-8.0); NEUTROPHILS # 6.9 10^3/uL (1.5-8.5); NEUTROPHILS % 69.9 % (36.0-66.0); PLATELET COUNT, AUTOMATED 282 10^3/uL (150-450); RED BLOOD COUNT 4.66 10^6/uL (4.30-6.10); WHITE BLOOD COUNT 9.8 10^3/uL (4.0-10.0)
[2023-04-29 16:19] LABS: ALBUMIN 3.4 G/DL (3.2-5.2); BILIRUBIN,TOTAL 0.2 MG/DL (0.3-1.2); CALCIUM LEVEL 8.9 MG/DL (8.3-10.6); CHOLESTEROL RISK RATIO 3.81 (<5); CREATININE FOR GFR 1.38 MG/DL (0.70-1.30); GLOMERULAR FILTRATION RATE 54.7 (>49); LDL CHOLESTEROL 58.6 MG/DL (<100); MAGNESIUM LEVEL 2.2 MG/DL (1.8-2.4); POTASSIUM SERUM 4.2 MMOL/L (3.5-5.1); TOTAL PROTEIN 6.8 G/DL (5.7-8.2)
[2023-04-29 16:21] LABS: FERRITIN 29.9 NG/ML (10.5-307.3)
== END ==
LOC: M PLALAB 12:33
PROVIDERS: ATTEND Family Medicine
DX: E11.8 Type 2 diabetes mellitus with unspecified complications (principal); E78.2 Mixed hyperlipidemia; E50.9 Vitamin A deficiency, unspecified; Z12.5 Encounter for screening for malignant neoplasm of prostate
CPT/HCPCS: 36415; 80053; 80061; 82728; 83036; 83735; 83880; 85025; G0103

== ENCOUNTER → 2023-04-29 | Outpatient (CLI) | payer OTHER | LOC: M PAIN 11:00 | PROVIDERS: ATTEND Nurse Practitioner Family | DX: M47.816 Spondylosis without myelopathy or radiculopathy, lumbar region (principal); G89.29 Other chronic pain; Z98.1 Arthrodesis status; I25.10 Atherosclerotic heart disease of native coronary artery without angina pectoris; E78.5 Hyperlipidemia, unspecified; E11.51 Type 2 diabetes mellitus with diabetic peripheral angiopathy without gangrene; J44.9 Chronic obstructive pulmonary disease, unspecified; G47.33 Obstructive sleep apnea (adult) (pediatric); N52.9 Male erectile dysfunction, unspecified; F33.9 Major depressive disorder, recurrent, unspecified; F41.1 Generalized anxiety disorder; Z79.891 Long term (current) use of opiate analgesic; Z79.84 Long term (current) use of oral hypoglycemic drugs; Z79.899 Other long term (current) drug therapy; F17.210 Nicotine dependence, cigarettes, uncomplicated; Z88.8 Allergy status to other drugs, medicaments and biological substances ==

== ENCOUNTER → 2023-05-13 | Outpatient (CLI) | payer OTHER ==
[2023-05-13 15:46] LABS: APPEARANCE, URINE HAZY (CLEAR); BACTERIA, URINE AUTO 1+ (NEGATIVE); BILIRUBIN, URINE AUTO NEGATIVE (NEGATIVE); BLOOD, URINE BLOOD 1+ (NEGATIVE); COLOR, URINE YELLOW (YELLOW); GLUCOSE, URINE (UA) AUTO NEGATIVE (NEGATIVE); KETONE, URINE AUTO NEGATIVE (NEGATIVE); LEUKOCYTE ESTERASE, URINE AUTO 3+ (NEGATIVE); MUCUS, URINE SMALL (NEGATIVE); NITRITE, URINE AUTO NEGATIVE (NEGATIVE); PROTEIN, URINE AUTO 1+ mg/dL (NEGATIVE); RBC, URINE AUTO 6 /HPF (0-3); SPECIFIC GRAVITY URINE AUTO 1.012 (1.002-1.035); SQUAMOUS EPITHELIAL CELL UR AU 0 /HPF (0-6); UROBILINOGEN, URINE AUTO 0.2 mg/dL (0.0-2.0); WBC, URINE AUTO 174 /HPF (0-3)
[2023-05-13 15:54] LABS: BASO % 0.5 % (0.0-1.0); EOS # 0.3 10^3/uL (0.0-0.5); EOS % 3.8 % (0.0-3.0); HEMATOCRIT 44.2 % (42.0-52.0); HEMOGLOBIN 13.5 g/dl (13.5-17.5); LYMPH # 1.4 10^3/uL (1.5-5.0); MEAN CORPUSCULAR HEMOGLOBIN 29.3 pg (27.0-33.0); MEAN CORPUSCULAR HGB CONC 30.5 g/dl (32.0-36.5); MEAN CORPUSCULAR VOLUME 95.9 fl (80.0-96.0); MONO # 1.1 10^3/uL (0.0-0.8); MONO % 15.1 % (2.0-8.0); NEUTROPHILS # 4.7 10^3/uL (1.5-8.5); NEUTROPHILS % 61.7 % (36.0-66.0); PLATELET COUNT, AUTOMATED 243 10^3/uL (150-450); RED BLOOD COUNT 4.61 10^6/uL (4.30-6.10); WHITE BLOOD COUNT 7.6 10^3/uL (4.0-10.0)
[2023-05-13 16:25] LABS: ALBUMIN 2.9 G/DL (3.2-5.2); BILIRUBIN,TOTAL 0.2 MG/DL (0.3-1.2); CALCIUM LEVEL 8.8 MG/DL (8.3-10.6); CREATININE FOR GFR 1.39 MG/DL (0.70-1.30); GLOMERULAR FILTRATION RATE 54.3 (>49); POTASSIUM SERUM 4.1 MMOL/L (3.5-5.1); TOTAL PROTEIN 6.6 G/DL (5.7-8.2)
== END ==
LOC: M PLALAB 11:56
PROVIDERS: ATTEND Family Medicine
DX: N39.0 Urinary tract infection, site not specified (principal)
CPT/HCPCS: 36415; 80053; 81001; 85025; 87088; 87186; G0103

== ENCOUNTER → 2023-08-22 | Outpatient (CLI) | payer OTHER ==
[2023-08-22 15:45] LABS: APPEARANCE, URINE CLOUDY (CLEAR); BACTERIA, URINE AUTO 1+ (NEGATIVE); BILIRUBIN, URINE AUTO NEGATIVE (NEGATIVE); BLOOD, URINE BLOOD NEGATIVE (NEGATIVE); COLOR, URINE YELLOW (YELLOW); GLUCOSE, URINE (UA) AUTO 3+ mg/dL (NEGATIVE); KETONE, URINE AUTO NEGATIVE (NEGATIVE); LEUKOCYTE ESTERASE, URINE AUTO 3+ (NEGATIVE); NITRITE, URINE AUTO NEGATIVE (NEGATIVE); PROTEIN, URINE AUTO 1+ mg/dL (NEGATIVE); RBC, URINE AUTO 7 /HPF (0-3); SPECIFIC GRAVITY URINE AUTO 1.017 (1.002-1.035); SQUAMOUS EPITHELIAL CELL UR AU 0 /HPF (0-6); UROBILINOGEN, URINE AUTO 0.2 mg/dL (0.0-2.0); WBC, URINE AUTO TNTC /HPF (0-3)
== END ==
LOC: M PLALAB 12:28
PROVIDERS: ATTEND Family Medicine
DX: N39.0 Urinary tract infection, site not specified (principal)

== ENCOUNTER → 2023-09-23 | Outpatient (CLI) | payer MEDICARE, OTHER ==
[~2023-09-23] MED LIST changes: +ISOVUE-370 76% 100ML VIAL ONE
== END ==
LOC: M PLAIMG 13:27
PROVIDERS: ATTEND Family Medicine
DX: R91.1 Solitary pulmonary nodule (principal); J43.9 Emphysema, unspecified; E11.8 Type 2 diabetes mellitus with unspecified complications; I50.20 Unspecified systolic (congestive) heart failure; Z12.5 Encounter for screening for malignant neoplasm of prostate
CPT/HCPCS: 36415; 71260; 80053; 82728; 83036; 83880; 84154; 85025; Q9967

== ENCOUNTER → 2023-09-23 | Outpatient (CLI) | payer MEDICARE, OTHER ==
[~2023-09-23] MED LIST changes: -ISOVUE-370 76% 100ML VIAL ONE
[2023-09-23 16:05] LABS: ALBUMIN 3.5 G/DL (3.2-5.2); ALKALINE PHOSPHATASE 116 U/L (46-116); ALT/SGPT 23 U/L (7.0-40); AST/SGOT 19 U/L (<34); BILIRUBIN,TOTAL 0.3 MG/DL (0.3-1.2); BLOOD UREA NITROGEN 22 MG/DL (9-23); CALCIUM LEVEL 9.3 MG/DL (8.3-10.6); CARBON DIOXIDE LEVEL 25 MMOL/L (20-31); CHLORIDE LEVEL 105 MMOL/L (98-107); CREATININE FOR GFR 1.24 MG/DL (0.70-1.30); GLOMERULAR FILTRATION RATE > 60.0 (>49); GLUCOSE, FASTING 104 MG/DL (74-106); POTASSIUM SERUM 4.2 MMOL/L (3.5-5.1); SODIUM LEVEL 138 MMOL/L (136-145); TOTAL PROTEIN 6.7 G/DL (5.7-8.2)
[2023-09-23 16:07] LABS: FERRITIN 55.2 NG/ML (10.5-307.3)
[2023-09-23 16:09] LABS: BASO # 0.1 10^3/uL (0.0-0.2); BASO % 0.7 % (0.0-1.0); EOS # 0.2 10^3/uL (0.0-0.5); EOS % 2.2 % (0.0-3.0); HEMATOCRIT 47.3 % (42.0-52.0); LYMPH # 1.5 10^3/uL (1.5-5.0); LYMPH % 15.4 % (24.0-44.0); MEAN CORPUSCULAR HEMOGLOBIN 30.6 pg (27.0-33.0); MEAN CORPUSCULAR HGB CONC 31.7 g/dl (32.0-36.5); MEAN CORPUSCULAR VOLUME 96.5 fl (80.0-96.0); MONO # 1.1 10^3/uL (0.0-0.8); MONO % 10.9 % (2.0-8.0); NEUTROPHILS # 7.1 10^3/uL (1.5-8.5); NEUTROPHILS % 70.5 % (36.0-66.0); PLATELET COUNT, AUTOMATED 254 10^3/uL (150-450)
[2023-09-25 23:07] LABS: PSA TOTAL 0.5 ng/mL (0.0-4.0)
== END ==
LOC: M PLALAB 13:35
PROVIDERS: ATTEND Family Medicine
DX: E11.8 Type 2 diabetes mellitus with unspecified complications (principal); I50.20 Unspecified systolic (congestive) heart failure; Z12.5 Encounter for screening for malignant neoplasm of prostate

== ENCOUNTER 2023-10-12 13:08 | Emergency (ER) | payer OTHER, MEDICARE ==
[~2023-10-12] VITALS: Ht 175.3 cm; Wt 89.4 kg
[2023-10-12 13:35] LABS: BASO # 0.1 10^3/uL (0.0-0.2); BASO % 0.6 % (0.0-1.0); EOS # 0.2 10^3/uL (0.0-0.5); EOS % 2.5 % (0.0-3.0); HEMATOCRIT 45.2 % (42.0-52.0); HEMOGLOBIN 14.4 g/dl (13.5-17.5); LYMPH # 1.5 10^3/uL (1.5-5.0); MEAN CORPUSCULAR HEMOGLOBIN 31.2 pg (27.0-33.0); MEAN CORPUSCULAR HGB CONC 31.9 g/dl (32.0-36.5); MONO # 1.1 10^3/uL (0.0-0.8); MONO % 11.2 % (2.0-8.0); NEUTROPHILS # 6.9 10^3/uL (1.5-8.5); NEUTROPHILS % 70.3 % (36.0-66.0); PLATELET COUNT, AUTOMATED 220 10^3/uL (150-450); RED BLOOD COUNT 4.61 10^6/uL (4.30-6.10); WHITE BLOOD COUNT 9.8 10^3/uL (4.0-10.0)
[2023-10-12 13:45] LABS: INR 1.03; PROTHROMBIN TIME 13.2 SECONDS (12.5-14.5)
[2023-10-12 13:46] LABS: PARTIAL THROMBOPLASTIN TIME 26.8 SECONDS (24.8-34.2)
[2023-10-12] MEDS ORDERED: LIDO1PAD (13:49)
[2023-10-12 14:00] LABS: ALBUMIN 3.4 G/DL (3.2-5.2); BILIRUBIN,DIRECT 0.1 MG/DL (<0.4); BILIRUBIN,TOTAL 0.3 MG/DL (0.3-1.2); CALCIUM LEVEL 8.4 MG/DL (8.3-10.6); CK-MB VALUE MASS 1.4 NG/ML (<3.6); CREATININE FOR GFR 1.29 MG/DL (0.70-1.30); GLOMERULAR FILTRATION RATE 59.1 (>49); MB/CK RELATIVE INDEX 0.84 (< OR =4)
[2023-10-12 14:01] LABS: THYROID STIMULATING HORMONE 3.549 uIU/ML (0.55-4.78)
[2023-10-12 14:10] LABS: RSV AMPLIFICATION NEGATIVE (NEGATIVE)
[2023-10-12] MEDS ORDERED: MORPHINE 4 MG/ML 1ML VIAL IV PRN (14:40)
[2023-10-12 15:09] LABS: CK-MB VALUE MASS 1.3 NG/ML (<3.6)
[2023-10-12 15:10] LABS: MB/CK RELATIVE INDEX 0.81 (< OR =4)
[2023-10-12 16:15] VITALS: BP 135/74; TEMP 97; O2SAT 97
== END 2023-10-12 16:21 | disposition short-term general hospital (02) ==
LOC: EDBD 13:08 → M ED 13:08
DX: T82.897A Other specified complication of cardiac prosthetic devices, implants and grafts, initial encounter (principal); I44.2 Atrioventricular block, complete; I25.10 Atherosclerotic heart disease of native coronary artery without angina pectoris; I50.9 Heart failure, unspecified; E11.9 Type 2 diabetes mellitus without complications; E78.5 Hyperlipidemia, unspecified; N18.30 Chronic kidney disease, stage 3 unspecified; G47.33 Obstructive sleep apnea (adult) (pediatric); F17.200 Nicotine dependence, unspecified, uncomplicated; Z79.82 Long term (current) use of aspirin; Z79.899 Other long term (current) drug therapy; Z88.8 Allergy status to other drugs, medicaments and biological substances; Z88.5 Allergy status to narcotic agent

== ENCOUNTER → 2023-10-30 | Outpatient (CLI) | payer OTHER ==
[~2023-10-30] MED LIST changes: +CARV3.12 PO; +LIDO1PAD TOP
== END ==
LOC: M PAIN 14:30
PROVIDERS: ATTEND Nurse Practitioner Family
DX: M47.816 Spondylosis without myelopathy or radiculopathy, lumbar region (principal); Z79.891 Long term (current) use of opiate analgesic; M96.1 Postlaminectomy syndrome, not elsewhere classified; I25.10 Atherosclerotic heart disease of native coronary artery without angina pectoris; E78.5 Hyperlipidemia, unspecified; E11.51 Type 2 diabetes mellitus with diabetic peripheral angiopathy without gangrene; J44.9 Chronic obstructive pulmonary disease, unspecified; G47.33 Obstructive sleep apnea (adult) (pediatric); K21.9 Gastro-esophageal reflux disease without esophagitis; F33.9 Major depressive disorder, recurrent, unspecified; F41.1 Generalized anxiety disorder; E55.9 Vitamin D deficiency, unspecified; E11.22 Type 2 diabetes mellitus with diabetic chronic kidney disease; N18.30 Chronic kidney disease, stage 3 unspecified; Z79.82 Long term (current) use of aspirin; Z79.899 Other long term (current) drug therapy; Z79.84 Long term (current) use of oral hypoglycemic drugs; F17.210 Nicotine dependence, cigarettes, uncomplicated; Z88.8 Allergy status to other drugs, medicaments and biological substances

== ENCOUNTER → 2023-11-06 | Outpatient (REF) | payer MEDICARE, OTHER | LOC: M SFHCPLAZ 15:07 | PROVIDERS: ATTEND Family Medicine | DX: I50.20 Unspecified systolic (congestive) heart failure (principal); N18.31 Chronic kidney disease, stage 3a; K76.0 Fatty (change of) liver, not elsewhere classified ==

== ENCOUNTER → 2023-11-28 | Outpatient (CLI) | payer MEDICARE, OTHER ==
[2023-11-28 17:37] LABS: BASO # 0.1 10^3/uL (0.0-0.2); BASO % 0.6 % (0.0-1.0); EOS # 0.2 10^3/uL (0.0-0.5); EOS % 2.4 % (0.0-3.0); HEMATOCRIT 45.2 % (42.0-52.0); HEMOGLOBIN 13.9 g/dl (13.5-17.5); LYMPH # 1.5 10^3/uL (1.5-5.0); LYMPH % 17.1 % (24.0-44.0); MEAN CORPUSCULAR HEMOGLOBIN 30.6 pg (27.0-33.0); MEAN CORPUSCULAR HGB CONC 30.8 g/dl (32.0-36.5); MEAN CORPUSCULAR VOLUME 99.6 fl (80.0-96.0); MONO # 0.9 10^3/uL (0.0-0.8); MONO % 10.3 % (2.0-8.0); NEUTROPHILS # 6.2 10^3/uL (1.5-8.5); NEUTROPHILS % 69.3 % (36.0-66.0); PLATELET COUNT, AUTOMATED 217 10^3/uL (150-450); RED BLOOD COUNT 4.54 10^6/uL (4.30-6.10); WHITE BLOOD COUNT 8.9 10^3/uL (4.0-10.0)
[2023-11-28 17:49] LABS: INR 1.1; PARTIAL THROMBOPLASTIN TIME 28.8 SECONDS (24.8-34.2); PROTHROMBIN TIME 13.9 SECONDS (12.5-14.5)
[2023-11-28 18:08] LABS: FERRITIN 43.9 NG/ML (10.5-307.3); VITAMIN B12 LEVEL 397 PG/ML (211-911)
[2023-11-28 18:09] LABS: ALBUMIN 3.4 G/DL (3.2-5.2); ALKALINE PHOSPHATASE 114 U/L (46-116); ALT/SGPT 18 U/L (7.0-40); AST/SGOT 19 U/L (<34); BILIRUBIN,TOTAL 0.3 MG/DL (0.3-1.2); BLOOD UREA NITROGEN 18 MG/DL (9-23); CALCIUM LEVEL 8.8 MG/DL (8.3-10.6); CARBON DIOXIDE LEVEL 28 MMOL/L (20-31); CHLORIDE LEVEL 108 MMOL/L (98-107); CREATININE FOR GFR 1.24 MG/DL (0.70-1.30); GLOMERULAR FILTRATION RATE > 60.0 (>49); GLUCOSE, FASTING 138 MG/DL (74-106); POTASSIUM SERUM 4.8 MMOL/L (3.5-5.1); SODIUM LEVEL 139 MMOL/L (136-145); TOTAL PROTEIN 6.6 G/DL (5.7-8.2)
== END ==
LOC: M PLALAB 15:00
PROVIDERS: ATTEND Family Medicine
DX: I50.20 Unspecified systolic (congestive) heart failure (principal); N18.31 Chronic kidney disease, stage 3a; K76.0 Fatty (change of) liver, not elsewhere classified

== ENCOUNTER 2023-12-01 15:52 | Outpatient (CLI) | payer MEDICARE, OTHER ==
[~2023-12-01] VITALS: Ht 175.3 cm; Wt 90.0 kg
[2023-12-01 16:00] VITALS: BP 136/80; O2SAT 98
[2023-12-01] MEDS: ZOLEDRONIC ACID 5 MG in IV 1 EA IV ONE (16:15)
[2023-12-01 16:50] VITALS: BP 147/77; O2SAT 99
== END 2023-12-01 16:50 ==
LOC: M INFU 15:52
PROVIDERS: ATTEND Family Medicine
DX: M85.80 Other specified disorders of bone density and structure, unspecified site (principal); Z88.5 Allergy status to narcotic agent; Z88.8 Allergy status to other drugs, medicaments and biological substances
CPT/HCPCS: 96365; J3489

== ENCOUNTER → 2024-04-27 | Outpatient (CLI) | payer OTHER ==
[~2024-04-27] MED LIST changes: +GABA-1490 PO; +GABA-1635 PO; -GABA600T4 PO; -GABA800T4 PO; -GLIM1TAB4 PO; +GLIM1TAB84 PO
== END ==
LOC: M PAIN 11:15
PROVIDERS: ATTEND Nurse Practitioner Family
DX: G89.4 Chronic pain syndrome (principal); Z79.891 Long term (current) use of opiate analgesic; M47.816 Spondylosis without myelopathy or radiculopathy, lumbar region; M96.1 Postlaminectomy syndrome, not elsewhere classified; I25.10 Atherosclerotic heart disease of native coronary artery without angina pectoris; E78.2 Mixed hyperlipidemia; E11.51 Type 2 diabetes mellitus with diabetic peripheral angiopathy without gangrene; J44.9 Chronic obstructive pulmonary disease, unspecified; G47.33 Obstructive sleep apnea (adult) (pediatric); N52.9 Male erectile dysfunction, unspecified; K21.9 Gastro-esophageal reflux disease without esophagitis; F41.1 Generalized anxiety disorder; F33.9 Major depressive disorder, recurrent, unspecified; E55.9 Vitamin D deficiency, unspecified; F17.210 Nicotine dependence, cigarettes, uncomplicated; Z79.82 Long term (current) use of aspirin; Z79.899 Other long term (current) drug therapy; Z88.8 Allergy status to other drugs, medicaments and biological substances

== ENCOUNTER → 2024-06-14 | Outpatient (REF) | payer MEDICARE ==
[~2024-06-14] MED LIST changes: +GABA-1172 PO; -GABA-282 PO; -SENN-111 PO; +SENN-165 PO
[2024-06-14 16:26] LABS: APPEARANCE, URINE CLOUDY (CLEAR); BACTERIA, URINE AUTO NEGATIVE (NEGATIVE); BILIRUBIN, URINE AUTO 1+ (NEGATIVE); BLOOD, URINE BLOOD 1+ (NEGATIVE); COLOR, URINE AMBER (YELLOW); GLUCOSE, URINE (UA) AUTO NEGATIVE (NEGATIVE); KETONE, URINE AUTO TRACE mg/dL (NEGATIVE); LEUKOCYTE ESTERASE, URINE AUTO 3+ (NEGATIVE); MUCUS, URINE SMALL (NEGATIVE); NITRITE, URINE AUTO NEGATIVE (NEGATIVE); PROTEIN, URINE AUTO 2+ mg/dL (NEGATIVE); RBC, URINE AUTO 5 /HPF (0-3); SPECIFIC GRAVITY URINE AUTO 1.023 (1.002-1.035); SQUAMOUS EPITHELIAL CELL UR AU 1 /HPF (0-6); WBC, URINE AUTO TNTC /HPF (0-3)
== END ==
LOC: M SFHCPLAZ 14:50
PROVIDERS: ATTEND Family Medicine
DX: N30.00 Acute cystitis without hematuria (principal)

== ENCOUNTER → 2024-06-22 | Outpatient (REF) | payer MEDICARE, OTHER | LOC: M SFHCPLAZ 16:28 | DX: R19.7 Diarrhea, unspecified (principal) ==

== ENCOUNTER → 2024-07-01 | Outpatient (REF) | payer MEDICARE, OTHER | LOC: M SFHCPLAZ 14:56 | DX: R39.9 Unspecified symptoms and signs involving the genitourinary system (principal) ==

== ENCOUNTER → 2024-07-07 | Outpatient (CLI) | payer OTHER, MEDICARE | LOC: M RAD 11:01 | PROVIDERS: ATTEND Podiatrist Foot & Ankle Surgery | DX: I73.9 Peripheral vascular disease, unspecified (principal); Z95.820 Peripheral vascular angioplasty status with implants and grafts ==

== ENCOUNTER → 2024-07-08 | Outpatient (CLI) | payer OTHER, MEDICARE ==
[2024-07-08 14:38] LABS: ALBUMIN 2.6 G/DL (3.2-5.2); BILIRUBIN,TOTAL 0.3 MG/DL (0.3-1.2); CALCIUM LEVEL 9.2 MG/DL (8.3-10.6); CREATININE FOR GFR 1.32 MG/DL (0.70-1.30); GLOMERULAR FILTRATION RATE 57.4 (>49); POTASSIUM SERUM 4.4 MMOL/L (3.5-5.1); TOTAL PROTEIN 7.4 G/DL (5.7-8.2)
== END ==
LOC: M LAB 13:39
PROVIDERS: ATTEND Internal Medicine Cardiovascular Disease
DX: I50.20 Unspecified systolic (congestive) heart failure (principal)

== ENCOUNTER 2024-07-30 04:59 | Emergency (ER) | payer OTHER, MEDICARE ==
[~2024-07-30] VITALS: Ht 175.3 cm; Wt 80.9 kg
[~2024-07-30 04:59] MED LIST changes: +FLUC-1 PO; -FLUC200T4 PO; +META-10 PO; -META1TAB22 PO; +NYST1POW3 TOP; -NYST1POW9 TOP
[2024-07-30] MEDS: NS 1,000 ML IV ONE ×2 (05:10→11:02)
[2024-07-30 05:47] LABS: APPEARANCE, URINE HAZY (CLEAR); BACTERIA, URINE AUTO 2+ (NEGATIVE); BILIRUBIN, URINE AUTO NEGATIVE (NEGATIVE); BLOOD, URINE BLOOD NEGATIVE (NEGATIVE); COLOR, URINE YELLOW (YELLOW); GLUCOSE, URINE (UA) AUTO 3+ mg/dL (NEGATIVE); GRANULAR CAST, URINE AUTO 2 /LPF; KETONE, URINE AUTO TRACE mg/dL (NEGATIVE); LEUKOCYTE ESTERASE, URINE AUTO 3+ (NEGATIVE); MUCUS, URINE SMALL (NEGATIVE); NITRITE, URINE AUTO NEGATIVE (NEGATIVE); PROTEIN, URINE AUTO 2+ mg/dL (NEGATIVE); RBC, URINE AUTO 3 /HPF (0-3); SPECIFIC GRAVITY URINE AUTO 1.015 (1.002-1.035); SQUAMOUS EPITHELIAL CELL UR AU 0 /HPF (0-6); TRANSITIONAL EPITHELIAL AUTO <1 /HPF; WBC, URINE AUTO 130 /HPF (0-3)
[2024-07-30 05:52] LABS: BASO % 0.2 % (0.0-1.0); EOS % 0.3 % (0.0-3.0); HEMATOCRIT 39.2 % (42.0-52.0); HEMOGLOBIN 12.1 g/dl (13.5-17.5); LYMPH # 0.4 10^3/uL (1.5-5.0); LYMPH % 3.5 % (24.0-44.0); MEAN CORPUSCULAR HEMOGLOBIN 26.7 pg (27.0-33.0); MEAN CORPUSCULAR HGB CONC 30.9 g/dl (32.0-36.5); MEAN CORPUSCULAR VOLUME 86.3 fl (80.0-96.0); MONO # 0.4 10^3/uL (0.0-0.8); MONO % 3.5 % (2.0-8.0); NEUTROPHILS # 10.9 10^3/uL (1.5-8.5); NEUTROPHILS % 91.7 % (36.0-66.0); PLATELET COUNT, AUTOMATED 245 10^3/uL (150-450); RED BLOOD COUNT 4.54 10^6/uL (4.30-6.10); WHITE BLOOD COUNT 11.9 10^3/uL (4.0-10.0)
[2024-07-30 06:05] LABS: INR 1.22; PROTHROMBIN TIME 15.7 SECONDS (12.5-14.5)
[2024-07-30 06:08] LABS: AMPHETAMINES LEVEL URINE NEGATIVE (NEGATIVE); BARBITURATES URINE NEGATIVE (NEGATIVE); BENZODIAZEPINES URINE NEGATIVE (NEGATIVE); COCAINE METABOLITE URINE NEGATIVE (NEGATIVE); METHADONE URINE NEGATIVE (NEGATIVE); PHENCYCLIDINE URINE NEGATIVE (NEGATIVE)
[2024-07-30] MEDS: ONDANSETRON 4MG 2ML VIAL IV ONE (06:08)
[2024-07-30 06:09] LABS: CANNABINOIDS URINE NEGATIVE (NEGATIVE); ERYTHROCYTE SEDIMENTATION RATE > 130 mm/hr (0-20)
[2024-07-30] MEDS: MORPHINE 10 MG/ML 1ML VIAL IV ONE (06:10)
[2024-07-30 06:11] LABS: ETHYL ALCOHOL (ETHANOL) 0.006 % (0.000-0.010); LIPASE 30 U/L (12-53); OPIATES URINE POSITIVE (NEGATIVE)
[2024-07-30 06:13] LABS: AMYLASE 44 U/L (30-118); CPK CREATINE PHOSPHOKINASE 45 U/L (46-171)
[2024-07-30 06:23] LABS: ALBUMIN 2.1 G/DL (3.2-5.2); ALKALINE PHOSPHATASE 287 U/L (40-129); ALT/SGPT 76 U/L (7.0-40); AST/SGOT 93 U/L (<34); BILIRUBIN,DIRECT 0.4 MG/DL (<0.4); BILIRUBIN,TOTAL 0.7 MG/DL (0.3-1.2); BLOOD UREA NITROGEN 23 MG/DL (9-23); CARBON DIOXIDE LEVEL 19 MMOL/L (20-31); CHLORIDE LEVEL 104 MMOL/L (98-107); CK-MB VALUE MASS < 1.0 NG/ML (<3.6); CREATININE FOR GFR 1.42 MG/DL (0.70-1.30); GLOMERULAR FILTRATION RATE 52.8 (>49); GLUCOSE, FASTING 116 MG/DL (74-106); MAGNESIUM LEVEL 1.6 MG/DL (1.8-2.4); MB/CK RELATIVE INDEX 2.22 (< OR =4); POTASSIUM SERUM 4.5 MMOL/L (3.5-5.1); SODIUM LEVEL 133 MMOL/L (136-145); TOTAL PROTEIN 7.1 G/DL (5.7-8.2)
[2024-07-30] MEDS: VANCOMYCIN/WATER FOR INJ 1,000 MG in IV 1 EA IV ONE (06:29)
[2024-07-30 06:49] LABS: VENOUS BASE EXCESS -4.2 (-2.0-2.0); VENOUS HCO3 21.5 MMOL/L (23.0-27.0); VENOUS O2 SATURATION 46.9 % (60.0-80.0); VENOUS PARTIAL PRESSURE CO2 42.1 mmHg (38.0-50.0); VENOUS PARTIAL PRESSURE O2 27.5 mmHg (30.0-50.0); VENOUS PH 7.327 UNITS (7.330-7.430); VENOUS TOTAL CO2 22.8 MMOL/L (24.0-28.0)
[2024-07-30 07:01] LABS: PROCALCITONIN 0.65 ng/ml
[2024-07-30] MEDS: GASTROGRAFIN SOLUTION 30ML PO SCH (07:23)
[2024-07-30] MEDS: PIPERACILLIN/TAZOBACTAM SOD 4.5 GM in DEXTROSE 5% (D5W) ADV/MINI-BAG 50 ML IV ONE (07:24)
[2024-07-30] MEDS: ACETAMINOPHEN *IV* 1,000 MG in IV 1 EA IV ONE (07:25)
[2024-07-30 07:27] LABS: CK-MB VALUE MASS < 1.0 NG/ML (<3.6)
[2024-07-30 07:28] LABS: CPK CREATINE PHOSPHOKINASE 42 U/L (46-171); MB/CK RELATIVE INDEX 2.38 (< OR =4)
[2024-07-30] MEDS: MAG SULF 1GM/100ML (MAG RUN) 1 GM in IV 1 EA IV ONE (07:34)
[2024-07-30] MEDS: NS 500 ML IV ONE (07:43)
[2024-07-30] MEDS: fentaNYL 100 MCG/2 ML INJECTION IV PRN (07:55)
[2024-07-30] MEDS: NS 1,000 ML in IV 1 EA IV ONE (07:58)
[2024-07-30] MEDS ORDERED: ROSU10TA61 PO (08:47)
[2024-07-30] MEDS ORDERED: FARX1TAB5 PO (08:47)
[2024-07-30] MEDS ORDERED: SENN-188 PO (08:47)
[2024-07-30] MEDS ORDERED: SPIR-10 PO (08:47)
[2024-07-30] MEDS ORDERED: HOME MED LIST COMPLETE! XX SCH (08:50)
[2024-07-30] MEDS ORDERED: ISOVUE-370 76% 100ML VIAL As Ordered ONE (08:50)
[2024-07-30] MEDS: ACETAMINOPHEN 325 MG TAB PO ONE (08:56)
[2024-07-30] MEDS: NOREPINEPHRINE 4MG IN D5 250ML 4 MG in IV 1 EA IV SCH (09:14)
[2024-07-30] MEDS: fentaNYL 100 MCG/2 ML INJECTION IV ONE (12:00)
[2024-07-30 12:24] VITALS: BP 109/58; TEMP 96.4; O2SAT 94
== END 2024-07-30 12:25 | disposition short-term general hospital (02) ==
LOC: M ED 04:59
DX: L89.154 Pressure ulcer of sacral region, stage 4 (principal); R65.21 Severe sepsis with septic shock; T82.218A Other mechanical complication of coronary artery bypass graft, initial encounter; N39.0 Urinary tract infection, site not specified; N28.1 Cyst of kidney, acquired; L76.32 Postprocedural hematoma of skin and subcutaneous tissue following other procedure; K76.0 Fatty (change of) liver, not elsewhere classified; J98.11 Atelectasis; K21.9 Gastro-esophageal reflux disease without esophagitis; J44.9 Chronic obstructive pulmonary disease, unspecified; I25.10 Atherosclerotic heart disease of native coronary artery without angina pectoris; I11.0 Hypertensive heart disease with heart failure; E11.9 Type 2 diabetes mellitus without complications; E78.5 Hyperlipidemia, unspecified; D64.9 Anemia, unspecified; G47.33 Obstructive sleep apnea (adult) (pediatric); F41.9 Anxiety disorder, unspecified; F32.A Depression, unspecified; Z95.0 Presence of cardiac pacemaker; Z90.5 Acquired absence of kidney; Z93.3 Colostomy status; Z79.899 Other long term (current) drug therapy; Z88.8 Allergy status to other drugs, medicaments and biological substances
CPT/HCPCS: 71045; 74177; 80048; 80076; 80307; 81001; 82077; 82150; 82550; 82553; 82803; 83605; 83690; 83735; 84145; 84484; 85025; 85610; 85652; 85730; 86140; 86850; 86900; 86901; 87040; 87070; 87077; 87088; 87154; 87186; 87205; 87486; 87581; 87633; 87798; 93005; 93041; 94760; 96374; 96375; 99285; J0131; J2405; J2543; J3010; J3372; J3475; Q9963; Q9967

== ENCOUNTER → 2024-08-10 | Outpatient (REF) | payer OTHER, MEDICARE ==
[~2024-08-10] MED LIST changes: +FARX1TAB5 PO; +ROSU10TA61 PO; +SENN-188 PO; +SPIR-10 PO
[2024-08-10 18:31] LABS: BASO # 0.1 10^3/uL (0.0-0.2); BASO % 0.5 % (0.0-1.0); EOS # 0.1 10^3/uL (0.0-0.5); EOS % 0.9 % (0.0-3.0); HEMATOCRIT 38.6 % (42.0-52.0); HEMOGLOBIN 11.4 g/dl (13.5-17.5); LYMPH # 1.3 10^3/uL (1.5-5.0); LYMPH % 10.4 % (24.0-44.0); MEAN CORPUSCULAR HEMOGLOBIN 26.4 pg (27.0-33.0); MEAN CORPUSCULAR HGB CONC 29.5 g/dl (32.0-36.5); MEAN CORPUSCULAR VOLUME 89.4 fl (80.0-96.0); MONO # 1.1 10^3/uL (0.0-0.8); MONO % 8.7 % (2.0-8.0); NEUTROPHILS # 10.1 10^3/uL (1.5-8.5); NEUTROPHILS % 78.9 % (36.0-66.0); RED BLOOD COUNT 4.32 10^6/uL (4.30-6.10); WHITE BLOOD COUNT 12.8 10^3/uL (4.0-10.0)
[2024-08-10 18:55] LABS: ALBUMIN 2.3 G/DL (3.2-5.2); ALKALINE PHOSPHATASE 172 U/L (40-129); ALT/SGPT 21 U/L (7.0-40); AST/SGOT 18 U/L (<34); BILIRUBIN,TOTAL 0.4 MG/DL (0.3-1.2); BLOOD UREA NITROGEN 14 MG/DL (9-23); CALCIUM LEVEL 8.7 MG/DL (8.3-10.6); CARBON DIOXIDE LEVEL 27 MMOL/L (20-31); CHLORIDE LEVEL 105 MMOL/L (98-107); CREATININE FOR GFR 1.21 MG/DL (0.70-1.30); GLOMERULAR FILTRATION RATE > 60.0 (>49); GLUCOSE, FASTING 151 MG/DL (74-106); MAGNESIUM LEVEL 1.9 MG/DL (1.8-2.4); SODIUM LEVEL 136 MMOL/L (136-145); TOTAL PROTEIN 7.6 G/DL (5.7-8.2)
[2024-08-10 18:58] LABS: FERRITIN 153.8 NG/ML (10.5-307.3)
[2024-08-10 19:00] LABS: VITAMIN B12 LEVEL 541 PG/ML (211-911)
== END ==
LOC: M LABDRAWP 16:54
PROVIDERS: ATTEND Family Medicine
DX: N18.31 Chronic kidney disease, stage 3a (principal); I50.20 Unspecified systolic (congestive) heart failure

== ENCOUNTER → 2024-08-17 | Outpatient (CLI) | payer MEDICARE, OTHER ==
[2024-08-17 15:16] LABS: BASO # 0.1 10^3/uL (0.0-0.2); BASO % 0.5 % (0.0-1.0); EOS # 0.2 10^3/uL (0.0-0.5); EOS % 2.5 % (0.0-3.0); HEMATOCRIT 34.2 % (42.0-52.0); LYMPH # 1.6 10^3/uL (1.5-5.0); LYMPH % 16.3 % (24.0-44.0); MEAN CORPUSCULAR HEMOGLOBIN 26.3 pg (27.0-33.0); MEAN CORPUSCULAR HGB CONC 29.2 g/dl (32.0-36.5); MONO # 1.1 10^3/uL (0.0-0.8); MONO % 10.8 % (2.0-8.0); NEUTROPHILS # 6.8 10^3/uL (1.5-8.5); NEUTROPHILS % 69.4 % (36.0-66.0); PLATELET COUNT, AUTOMATED 305 10^3/uL (150-450); WHITE BLOOD COUNT 9.7 10^3/uL (4.0-10.0)
[2024-08-17 15:22] LABS: ALKALINE PHOSPHATASE 167 U/L (40-129); ALT/SGPT 24 U/L (7.0-40); AST/SGOT 21 U/L (<34); BILIRUBIN,TOTAL 0.3 MG/DL (0.3-1.2); BLOOD UREA NITROGEN 16 MG/DL (9-23); CALCIUM LEVEL 8.6 MG/DL (8.3-10.6); CARBON DIOXIDE LEVEL 28 MMOL/L (20-31); CHLORIDE LEVEL 103 MMOL/L (98-107); CREATININE FOR GFR 1.21 MG/DL (0.70-1.30); GLOMERULAR FILTRATION RATE > 60.0 (>49); GLUCOSE, FASTING 154 MG/DL (74-106); POTASSIUM SERUM 4.7 MMOL/L (3.5-5.1); SODIUM LEVEL 137 MMOL/L (136-145); TOTAL PROTEIN 7.5 G/DL (5.7-8.2)
[2024-08-17 15:42] LABS: ERYTHROCYTE SEDIMENTATION RATE > 130 mm/hr (0-20)
[2024-08-17 15:56] LABS: C REACTIVE PROTEIN QUANTITATIV 11.28 MG/DL (<1.0)
== END ==
LOC: M PLALAB 13:39
PROVIDERS: ATTEND Family Medicine
DX: R65.21 Severe sepsis with septic shock (principal); I50.20 Unspecified systolic (congestive) heart failure

== ENCOUNTER → 2024-08-26 | Outpatient (CLI) | payer MEDICARE, OTHER ==
[2024-08-26 14:35] LABS: BASO # 0.1 10^3/uL (0.0-0.2); BASO % 0.5 % (0.0-1.0); EOS # 0.2 10^3/uL (0.0-0.5); EOS % 1.1 % (0.0-3.0); HEMATOCRIT 32.7 % (42.0-52.0); HEMOGLOBIN 9.5 g/dl (13.5-17.5); LYMPH % 7.6 % (24.0-44.0); MEAN CORPUSCULAR HEMOGLOBIN 25.9 pg (27.0-33.0); MEAN CORPUSCULAR HGB CONC 29.1 g/dl (32.0-36.5); MEAN CORPUSCULAR VOLUME 89.1 fl (80.0-96.0); MONO % 7.6 % (2.0-8.0); NEUTROPHILS % 82.3 % (36.0-66.0); PLATELET COUNT, AUTOMATED 339 10^3/uL (150-450); RED BLOOD COUNT 3.67 10^6/uL (4.30-6.10); WHITE BLOOD COUNT 13.4 10^3/uL (4.0-10.0)
[2024-08-26 14:57] LABS: ALBUMIN 1.9 G/DL (3.2-5.2); BILIRUBIN,TOTAL 0.5 MG/DL (0.3-1.2); C REACTIVE PROTEIN QUANTITATIV 12.51 MG/DL (<1.0); CALCIUM LEVEL 8.2 MG/DL (8.3-10.6); CREATININE FOR GFR 1.3 MG/DL (0.70-1.30); GLOMERULAR FILTRATION RATE 58.4 (>49); POTASSIUM SERUM 5.2 MMOL/L (3.5-5.1); TOTAL PROTEIN 7.3 G/DL (5.7-8.2)
[2024-08-26 14:59] LABS: FERRITIN 161.1 NG/ML (10.5-307.3)
== END ==
LOC: M PLALAB 12:06
PROVIDERS: ATTEND Family Medicine
DX: I50.20 Unspecified systolic (congestive) heart failure (principal); N18.31 Chronic kidney disease, stage 3a

== ENCOUNTER → 2024-08-31 | Outpatient (CLI) | payer MEDICARE, OTHER ==
[2024-08-31 15:33] LABS: BASO # 0.1 10^3/uL (0.0-0.2); BASO % 0.4 % (0.0-1.0); EOS # 0.2 10^3/uL (0.0-0.5); EOS % 1.4 % (0.0-3.0); HEMATOCRIT 31.1 % (42.0-52.0); HEMOGLOBIN 9.2 g/dl (13.5-17.5); LYMPH # 1.1 10^3/uL (1.5-5.0); LYMPH % 8.1 % (24.0-44.0); MEAN CORPUSCULAR HEMOGLOBIN 25.8 pg (27.0-33.0); MEAN CORPUSCULAR HGB CONC 29.6 g/dl (32.0-36.5); MEAN CORPUSCULAR VOLUME 87.4 fl (80.0-96.0); MONO # 1.3 10^3/uL (0.0-0.8); MONO % 9.3 % (2.0-8.0); NEUTROPHILS # 10.8 10^3/uL (1.5-8.5); NEUTROPHILS % 80.2 % (36.0-66.0); PLATELET COUNT, AUTOMATED 355 10^3/uL (150-450); RED BLOOD COUNT 3.56 10^6/uL (4.30-6.10); WHITE BLOOD COUNT 13.4 10^3/uL (4.0-10.0)
[2024-08-31 16:05] LABS: ALBUMIN 1.8 G/DL (3.2-5.2); BILIRUBIN,TOTAL 0.7 MG/DL (0.3-1.2); C REACTIVE PROTEIN QUANTITATIV 18.11 MG/DL (<1.0); CALCIUM LEVEL 8.5 MG/DL (8.3-10.6); CREATININE FOR GFR 1.41 MG/DL (0.70-1.30); GLOMERULAR FILTRATION RATE 53.2 (>49); POTASSIUM SERUM 4.6 MMOL/L (3.5-5.1); TOTAL PROTEIN 7.2 G/DL (5.7-8.2)
== END ==
LOC: M PLALAB 13:49
PROVIDERS: ATTEND Family Medicine
DX: I50.20 Unspecified systolic (congestive) heart failure (principal); N18.31 Chronic kidney disease, stage 3a

== ENCOUNTER → 2024-09-01 | Outpatient (CLI) | payer MEDICARE, OTHER | LOC: M RAD 11:27 | PROVIDERS: ATTEND Family Medicine | DX: R91.1 Solitary pulmonary nodule (principal) ==

== ENCOUNTER 2024-09-07 17:01 | Inpatient (IN) | payer MEDICARE, OTHER ==
[2024-09-07] VITALS (10 sets, daily range): BP systolic 77–109; BP diastolic 69–87; TEMP 97.6–97.9; O2SAT 99–100
[2024-09-07] MEDS: LIDOCAINE 2% 5ML JELLY UROJET TOP ONE ×2 (17:25→17:55)
[2024-09-07 17:40] LABS: VENOUS BASE EXCESS -4.1 (-2.0-2.0); VENOUS PARTIAL PRESSURE CO2 38.2 mmHg (38.0-50.0); VENOUS PARTIAL PRESSURE O2 61.8 mmHg (30.0-50.0); VENOUS PH 7.358 UNITS (7.330-7.430); VENOUS TOTAL CO2 22.2 MMOL/L (24.0-28.0)
[2024-09-07 17:42] LABS: BASO % 0.2 % (0.0-1.0); EOS % 0.1 % (0.0-3.0); HEMATOCRIT 28.8 % (42.0-52.0); HEMOGLOBIN 8.7 g/dl (13.5-17.5); LYMPH # 0.6 10^3/uL (1.5-5.0); LYMPH % 2.2 % (24.0-44.0); MEAN CORPUSCULAR HGB CONC 30.2 g/dl (32.0-36.5); MEAN CORPUSCULAR VOLUME 82.8 fl (80.0-96.0); MONO # 0.9 10^3/uL (0.0-0.8); MONO % 3.3 % (2.0-8.0); NEUTROPHILS % 90.9 % (36.0-66.0); PLATELET COUNT, AUTOMATED 278 10^3/uL (150-450); RED BLOOD COUNT 3.48 10^6/uL (4.30-6.10); WHITE BLOOD COUNT 26.4 10^3/uL (4.0-10.0)
[2024-09-07] MEDS ORDERED: MORPHINE 2 MG/ML 1ML VIAL IV ONE (17:50)
[2024-09-07] MEDS: PIPERACILLIN/TAZOBACTAM SOD 4.5 GM in DEXTROSE 5% (D5W) ADV/MINI-BAG 50 ML IV ONE (17:51)
[2024-09-07] MEDS: NS (Normal Saline) 0.9% 2,290 ML in IV 1 EA IV ONE (17:52)
[2024-09-07 18:03] LABS: INR 1.46; PARTIAL THROMBOPLASTIN TIME 28.2 SECONDS (24.8-34.2)
[2024-09-07 18:06] LABS: PROCALCITONIN 3.15 ng/ml
[2024-09-07 18:09] LABS: APPEARANCE, URINE HAZY (CLEAR); BACTERIA, URINE AUTO NEGATIVE (NEGATIVE); BILIRUBIN, URINE AUTO NEGATIVE (NEGATIVE); BLOOD, URINE BLOOD NEGATIVE (NEGATIVE); COLOR, URINE YELLOW (YELLOW); GLUCOSE, URINE (UA) AUTO NEGATIVE (NEGATIVE); KETONE, URINE AUTO NEGATIVE (NEGATIVE); LEUKOCYTE ESTERASE, URINE AUTO 2+ (NEGATIVE); MUCUS, URINE SMALL (NEGATIVE); NITRITE, URINE AUTO NEGATIVE (NEGATIVE); PROTEIN, URINE AUTO 1+ mg/dL (NEGATIVE); RBC, URINE AUTO 2 /HPF (0-3); SPECIFIC GRAVITY URINE AUTO 1.014 (1.002-1.035); SQUAMOUS EPITHELIAL CELL UR AU 0 /HPF (0-6); WBC, URINE AUTO 32 /HPF (0-3)
[2024-09-07 18:17] LABS: ALBUMIN 1.6 G/DL (3.2-5.2); BILIRUBIN,DIRECT 0.4 MG/DL (<0.4); BILIRUBIN,TOTAL 0.5 MG/DL (0.3-1.2); C REACTIVE PROTEIN QUANTITATIV 23.29 MG/DL (<1.0); CALCIUM LEVEL 7.4 MG/DL (8.3-10.6); CK-MB VALUE MASS 1.9 NG/ML (<3.6); CREATININE FOR GFR 1.63 MG/DL (0.70-1.30); MB/CK RELATIVE INDEX 1.16 (< OR =4); POTASSIUM SERUM 5.4 MMOL/L (3.5-5.1); TOTAL PROTEIN 6.9 G/DL (5.7-8.2)
[2024-09-07] MEDS: NOREPINEPHRINE 4MG IN D5 250ML 4 MG in IV 1 EA IV SCH ×2 (18:27→20:40)
[2024-09-07] MEDS: fentaNYL 100 MCG/2 ML INJECTION IV ONE ×2 (18:31→19:25)
[2024-09-07] MEDS ORDERED: CLINDAMYCIN 900 MG in IV 1 EA IV ONE (18:55)
[2024-09-07 19:05] LABS: CK-MB VALUE MASS 1.4 NG/ML (<3.6)
[2024-09-07 19:07] LABS: MB/CK RELATIVE INDEX 1.29 (< OR =4)
[2024-09-07] MEDS: VANCOMYCIN HCL 1,500 MG, VIAL MATE ADAPTER 1 EACH in NS 500 ML IV ONE (19:07)
[2024-09-07] MEDS ORDERED: fentaNYL 100 MCG/2 ML INJECTION IV PRN (20:10)
[2024-09-07] MEDS ORDERED: VANCOMYCIN HCL 500 MG in DEXTROSE 5% (D5W) MINI-BAG PLU 100 ML IV SCH (20:15)
[2024-09-07] MEDS ORDERED: MIDAZOLAM INJ 2MG/2ML VIAL As Ordered ONE (20:47)
[2024-09-07] MEDS ORDERED: ROCURONIUM BROMIDE 50MG/5ML VIAL As Ordered ONE (20:47)
[2024-09-07] MEDS ORDERED: ETOMIDATE INJ 20MG/10ML VIAL As Ordered ONE (20:47)
[2024-09-07] MEDS ORDERED: LIDOCAINE 2% 100MG/5ML SDV (FOR ANES.) As Ordered ONE (20:47)
[2024-09-07] MEDS ORDERED: VASOPRESSIN INJ 20UNITS/ML 1ML VIAL As Ordered ONE (20:47)
[2024-09-07] MEDS ORDERED: ONDANSETRON 4MG 2ML VIAL As Ordered ONE (20:47)
[2024-09-07] MEDS ORDERED: fentaNYL 250 MCG/5 ML INJECTION As Ordered ONE (20:47)
[2024-09-07] MEDS ORDERED: propofoL 200 MG/20 ML VIAL As Ordered ONE (20:47)
[2024-09-07] MEDS: MORPHINE 2 MG/ML 1ML VIAL IV ONE (20:48)
[2024-09-07] MEDS ORDERED: TORS5TAB2 PO (20:49)
[2024-09-07] MEDS ORDERED: BISO5TAB14 PO (20:49)
[2024-09-07] MEDS ORDERED: HOME MED LIST COMPLETE! XX SCH (20:50)
[2024-09-07] MEDS ORDERED: ePHEDrine SULFATE 25 MG/5 ML(5MG/ML) SYRINGE As Ordered ONE (23:03)
[2024-09-07] MEDS ORDERED: PHENYLephrine 500MCG 5ML (100MCG/ML) SYRINGE As Ordered ONE (23:04)
[2024-09-07] MEDS ORDERED: CALCIUM CHLORIDE 10% 1 GM/10 ML SYR As Ordered ONE (23:04)
[2024-09-07] MEDS ORDERED: EPINEPHrine INJ 1 MG/ML 1ML AMP As Ordered ONE (23:04)
[2024-09-07] MEDS ORDERED: SODIUM BICARBONATE 8.4% INJ 50ML SYRINGE As Ordered ONE (23:04)
[2024-09-07] MEDS ORDERED: EPINEPHrine 1MG/10ML SYRINGE 1.5IN As Ordered ONE (23:05)
[2024-09-07 23:15] LABS: ABG BASE EXCESS -18.5 (-2.0-2.0); ABG HCO3 11.1 MMOL/L (22.0-26.0); ABG O2 SATURATION 99.8 % (95.0-99.0); ABG PARTIAL PRESSURE O2 374.5 mmHg (75.0-100.0); ABG STANDARD HCO3 10.5 MMOL/L. (22.0-26.0); ABG TOTAL CO2 12.3 MMOL/L (23.0-31.0)
[2024-09-07 23:17] LABS: ABG pH (ARTERIAL) 7.049 UNITS (7.350-7.450)
[2024-09-07] MEDS: SODIUM BICARBONATE 8.4% INJ 50ML SYRINGE IV STA (23:28)
[2024-09-07 23:40] LABS: LDH LACTATE DEHYDROGENASE 346 U/L (120-246)
[2024-09-07 23:42] LABS: CPK CREATINE PHOSPHOKINASE 107 U/L (46-171)
[2024-09-07] MEDS: VASOPRESSIN IN 0.9 % NACL 20 UNIT in IV 1 EA IV SCH (23:46)
[2024-09-07 23:51] LABS: ALBUMIN 1.2 G/DL (3.2-5.2); ALKALINE PHOSPHATASE 191 U/L (40-129); ALT/SGPT 40 U/L (7.0-40); AST/SGOT 54 U/L (<34); BILIRUBIN,TOTAL 0.4 MG/DL (0.3-1.2); BLOOD UREA NITROGEN 35 MG/DL (9-23); CARBON DIOXIDE LEVEL 15 MMOL/L (20-31); CHLORIDE LEVEL 105 MMOL/L (98-107); CHOLESTEROL LEVEL < 50 MG/DL (<200); CREATININE FOR GFR 1.66 MG/DL (0.70-1.30); GLOMERULAR FILTRATION RATE 44.1 (>49); GLUCOSE, FASTING 307 MG/DL (74-106); MAGNESIUM LEVEL 2.3 MG/DL (1.8-2.4); PHOSPHORUS LEVEL 9.1 MG/DL (2.4-5.1); POTASSIUM SERUM 5.4 MMOL/L (3.5-5.1); SODIUM LEVEL 137 MMOL/L (136-145); TOTAL PROTEIN 5.2 G/DL (5.7-8.2); TRIGLYCERIDES LEVEL 87 MG/DL (<150)
[2024-09-08] VITALS (55 sets, daily range): BP systolic 61–133; BP diastolic 35–79; TEMP 95.9–98.9; O2SAT 99
[2024-09-08 00:22] LABS: HEMATOCRIT 31.5 % (42.0-52.0); HEMOGLOBIN 9.1 g/dl (13.5-17.5); MEAN CORPUSCULAR HEMOGLOBIN 25.4 pg (27.0-33.0); MEAN CORPUSCULAR HGB CONC 28.9 g/dl (32.0-36.5); PLATELET COUNT, AUTOMATED 223 10^3/uL (150-450); RED BLOOD COUNT 3.58 10^6/uL (4.30-6.10); WHITE BLOOD COUNT 26.4 10^3/uL (4.0-10.0)
[2024-09-08] MEDS: EPINEPHrine HCL INJ 4 MG in D5W 996 ML IV SCH (00:30)
[2024-09-08] MEDS: PANTOPRAZOLE 40MG VIAL IV SCH (00:51)
[2024-09-08] MEDS: PIPERACILLIN/TAZOBACTAM SOD 4.5 GM in DEXTROSE 5% (D5W) ADV/MINI-BAG 50 ML IV SCH (00:51)
[2024-09-08] MEDS: SODIUM BICARBONATE 75 MEQ in NS 0.45% 1,000 ML IV SCH (01:00)
[2024-09-08 01:02] LABS: ATYPICAL LYMPH 1 % (0-5); LYMPHOCYTES 5 % (16-44); MONOCYTES 3 % (0-5); NEUTROPHILS 87 % (28-66)
[2024-09-08 01:05] LABS: ANISOCYTOSIS 2+; HYPOCHROMASIA 2+
[2024-09-08 01:06] LABS: OVALOCYTES 1+
[2024-09-08 01:07] LABS: PLATELET ESTIMATE NORMAL (NORMAL); POLYCHROMASIA 1+
[2024-09-08] MEDS: CLINDAMYCIN 900 MG in IV 1 EA IV SCH (02:29)
[2024-09-08] MEDS: ACETAMINOPHEN 650MG SUPP PR ONE (03:00)
[2024-09-08] MEDS ORDERED: LACRILUBE (AKWA TEARS) OPHTH OINT 3.5GM OU PRN (03:00)
[2024-09-08 03:39] LABS: ABG BASE EXCESS -23.6 (-2.0-2.0); ABG HCO3 7.1 MMOL/L (22.0-26.0); ABG O2 SATURATION 98.9 % (95.0-99.0); ABG PARTIAL PRESSURE CO2 32.5 mmHg (35.0-45.0); ABG PARTIAL PRESSURE O2 220.2 mmHg (75.0-100.0); ABG STANDARD HCO3 7.5 MMOL/L. (22.0-26.0); ABG TOTAL CO2 8.1 MMOL/L (23.0-31.0); HEMATOCRIT 35.3 % (42.0-52.0); HEMOGLOBIN 9.7 g/dl (13.5-17.5); MEAN CORPUSCULAR HEMOGLOBIN 25.7 pg (27.0-33.0); MEAN CORPUSCULAR HGB CONC 27.5 g/dl (32.0-36.5); MEAN CORPUSCULAR VOLUME 93.6 fl (80.0-96.0); PLATELET COUNT, AUTOMATED 187 10^3/uL (150-450); RED BLOOD COUNT 3.77 10^6/uL (4.30-6.10); WHITE BLOOD COUNT 24.9 10^3/uL (4.0-10.0)
[2024-09-08 03:57] LABS: INR 2.03; PARTIAL THROMBOPLASTIN TIME 57.6 SECONDS (24.8-34.2); PROTHROMBIN TIME 23.1 SECONDS (12.5-14.5)
[2024-09-08] MEDS: DOPamine HCL 400 MG in IV 1 EA IV SCH (04:29)
[2024-09-08] MEDS: SODIUM BICARBONATE 8.4% INJ 50ML SYRINGE IV STA (05:31)
[2024-09-08 05:58] LABS: ALKALINE PHOSPHATASE 216 U/L (40-129); ALT/SGPT 306 U/L (7.0-40); AST/SGOT 974 U/L (<34); BILIRUBIN,TOTAL 0.9 MG/DL (0.3-1.2); BLOOD UREA NITROGEN 36 MG/DL (9-23); CALCIUM LEVEL 6.4 MG/DL (8.3-10.6); CARBON DIOXIDE LEVEL < 10.0 MMOL/L (20-31); CHLORIDE LEVEL 93 MMOL/L (98-107); CREATININE FOR GFR 1.79 MG/DL (0.70-1.30); GLOMERULAR FILTRATION RATE 40.4 (>49); GLUCOSE, FASTING 501 MG/DL (74-106); MAGNESIUM LEVEL 2.4 MG/DL (1.8-2.4); PHOSPHORUS LEVEL 13.5 MG/DL (2.4-5.1); POTASSIUM SERUM 6.9 MMOL/L (3.5-5.1); SODIUM LEVEL 125 MMOL/L (136-145); TOTAL PROTEIN 4.3 G/DL (5.7-8.2)
[2024-09-08] MEDS ORDERED: DEXTROSE 50% 50ML SYRINGE IV PRN (06:10)
[2024-09-08] MEDS ORDERED: INSULIN IV RATE CHANGE DOCUMENTATION ML/HR XX SCH (06:10)
[2024-09-08] MEDS ORDERED: GLUCOSE 4 GM CHEW PO PRN (06:10)
[2024-09-08] MEDS ORDERED: GLUCAGON INJ 1MG VIAL SC PRN (06:10)
[2024-09-08] MEDS: HumuLIN R (REGULAR) INSULIN (NovoLIN R) **100U/ML** PER UNIT IV STA (06:23)
[2024-09-08] MEDS: INSULIN REGULAR IN 0.9 % NACL 100 UNIT in IV 1 EA IV SCH (06:23)
[2024-09-08] MEDS ORDERED: ACETAMINOPHEN 650MG SUPP PR PRN (07:00)
[2024-09-08 07:17] LABS: ABG BASE EXCESS -22.8 (-2.0-2.0); ABG HCO3 7.8 MMOL/L (22.0-26.0); ABG O2 SATURATION 95.7 % (95.0-99.0); ABG PARTIAL PRESSURE CO2 35.8 mmHg (35.0-45.0); ABG PARTIAL PRESSURE O2 103.2 mmHg (75.0-100.0); ABG STANDARD HCO3 7.4 MMOL/L. (22.0-26.0); ABG TOTAL CO2 8.9 MMOL/L (23.0-31.0)
[2024-09-08 07:21] LABS: ABG pH (ARTERIAL) 6.954 UNITS (7.350-7.450)
[2024-09-08 07:28] LABS: HEMATOCRIT 32.3 % (42.0-52.0); HEMOGLOBIN 8.5 g/dl (13.5-17.5); MEAN CORPUSCULAR HEMOGLOBIN 25.3 pg (27.0-33.0); MEAN CORPUSCULAR HGB CONC 26.3 g/dl (32.0-36.5); MEAN CORPUSCULAR VOLUME 96.1 fl (80.0-96.0); RED BLOOD COUNT 3.36 10^6/uL (4.30-6.10)
[2024-09-08 07:29] LABS: PLATELET COUNT, AUTOMATED 78 10^3/uL (150-450)
[2024-09-08 07:39] LABS: INR 3.75; PARTIAL THROMBOPLASTIN TIME 74.3 SECONDS (24.8-34.2); PROTHROMBIN TIME 36.8 SECONDS (12.5-14.5)
[2024-09-08 07:49] LABS: ATYPICAL LYMPH 2 % (0-5); LYMPHOCYTES 3 % (16-44); MONOCYTES 5 % (0-5); NEUTROPHILS 84 % (28-66); PLATELET ESTIMATE DECREASED (NORMAL)
[2024-09-08 07:50] LABS: ANISOCYTOSIS 2+; HYPOCHROMASIA 2+; POIKILOCYTOSIS 1+; POLYCHROMASIA 1+
[2024-09-08] MEDS ORDERED: INSULIN REGULAR IN 0.9 % NACL 100 UNIT in IV 1 EA IV SCH (08:00)
[2024-09-08] MEDS: INSULIN IV RATE CHANGE DOCUMENTATION ML/HR XX SCH (08:00)
[2024-09-08 08:17] LABS: ALBUMIN 0.8 G/DL (3.2-5.2); ALKALINE PHOSPHATASE 233 U/L (40-129); ALT/SGPT 999 U/L (7.0-40); AST/SGOT 3550 U/L (<34); BILIRUBIN,TOTAL 0.9 MG/DL (0.3-1.2); BLOOD UREA NITROGEN 35 MG/DL (9-23); CALCIUM LEVEL 5.6 MG/DL (8.3-10.6); CARBON DIOXIDE LEVEL < 10.0 MMOL/L (20-31); CHLORIDE LEVEL 87 MMOL/L (98-107); CREATININE FOR GFR 1.71 MG/DL (0.70-1.30); GLOMERULAR FILTRATION RATE 42.6 (>49); GLUCOSE, FASTING 695 MG/DL (74-106); MAGNESIUM LEVEL 2.2 MG/DL (1.8-2.4); PHOSPHORUS LEVEL 12.8 MG/DL (2.4-5.1); POTASSIUM SERUM 6.3 MMOL/L (3.5-5.1); SODIUM LEVEL 120 MMOL/L (136-145); TOTAL PROTEIN 3.7 G/DL (5.7-8.2)
[2024-09-08] MEDS: PHENYLEPHRINE HCL INJ 50 MG in D5W 495 ML IV SCH (08:35)
[2024-09-08] MEDS: HYDROCORTISONE 100MG/2ML VIAL IV STA (08:37)
[2024-09-08] MEDS: LACRILUBE (AKWA TEARS) OPHTH OINT 3.5GM OU SCH (09:00)
[2024-09-08] MEDS: VANCOMYCIN 1,000MG/200 ML IV BAG IV SCH (09:12)
[2024-09-08] MEDS ORDERED: EPINEPHrine HCL INJ 16 MG in D5W 984 ML IV SCH (09:30)
[2024-09-08] MEDS: FUROSEMIDE 100MG/10ML VIAL IV ONE (10:10)
[2024-09-08] MEDS ORDERED: SODIUM BICARBONATE 8.4% INJ 50ML SYRINGE ONE (10:56)
[2024-09-08] MEDS: EPINEPHrine HCL INJ 16 MG in D5W 984 ML IV SCH (11:26)
[2024-09-08] MEDS: CALCIUM GLUCONATE 1,000 MG in DEXTROSE 5% (D5W) MINI-BAG PLU 100 ML IV SCH (11:51)
[2024-09-08 12:18] LABS: HEMATOCRIT 21.4 % (42.0-52.0); MEAN CORPUSCULAR HEMOGLOBIN 26.1 pg (27.0-33.0); MEAN CORPUSCULAR HGB CONC 22.4 g/dl (32.0-36.5); RED BLOOD COUNT 1.84 10^6/uL (4.30-6.10); WHITE BLOOD COUNT 18.5 10^3/uL (4.0-10.0)
[2024-09-08 12:19] LABS: HEMOGLOBIN 4.8 g/dl (13.5-17.5); MEAN CORPUSCULAR VOLUME 116.3 fl (80.0-96.0); PLATELET COUNT, AUTOMATED 19 10^3/uL (150-450)
[2024-09-08 12:38] LABS: ABG BASE EXCESS -23.8 (-2.0-2.0); ABG HCO3 5.6 MMOL/L (22.0-26.0); ABG O2 SATURATION 97.1 % (95.0-99.0); ABG PARTIAL PRESSURE CO2 24.2 mmHg (35.0-45.0); ABG PARTIAL PRESSURE O2 119.6 mmHg (75.0-100.0); ABG STANDARD HCO3 6.2 MMOL/L. (22.0-26.0); ABG TOTAL CO2 6.3 MMOL/L (23.0-31.0)
[2024-09-08 12:44] LABS: MEAN CORPUSCULAR HEMOGLOBIN 25.7 pg (27.0-33.0); MEAN CORPUSCULAR HGB CONC 23.8 g/dl (32.0-36.5); MEAN CORPUSCULAR VOLUME 107.9 fl (80.0-96.0); RED BLOOD COUNT 1.91 10^6/uL (4.30-6.10); WHITE BLOOD COUNT 17.9 10^3/uL (4.0-10.0)
[2024-09-08 12:45] LABS: HEMATOCRIT 20.6 % (42.0-52.0); HEMOGLOBIN 4.9 g/dl (13.5-17.5); PLATELET COUNT, AUTOMATED 14 10^3/uL (150-450)
[2024-09-08] MEDS: SODIUM BICARBONATE 150 MEQ in STERILE WATER LITER BAG 1,000 ML IV SCH (12:51)
[2024-09-08 13:08] LABS: PARTIAL THROMBOPLASTIN TIME < 20.0 SECONDS (24.8-34.2)
[2024-09-08 13:09] LABS: PROTHROMBIN TIME 130.1 SECONDS (12.5-14.5)
[2024-09-08 13:22] LABS: ALBUMIN < 0.5 G/DL (3.2-5.2); ALKALINE PHOSPHATASE 246 U/L (40-129); ALT/SGPT 3622 U/L (7.0-40); AST/SGOT > 6000 U/L (<34); BILIRUBIN,TOTAL 0.4 MG/DL (0.3-1.2); BLOOD UREA NITROGEN 25 MG/DL (9-23); CALCIUM LEVEL 4.4 MG/DL (8.3-10.6); CARBON DIOXIDE LEVEL < 10.0 MMOL/L (20-31); CHLORIDE LEVEL 70 MMOL/L (98-107); CREATININE FOR GFR 1.44 MG/DL (0.70-1.30); GLOMERULAR FILTRATION RATE 51.9 (>49); MAGNESIUM LEVEL 1.9 MG/DL (1.8-2.4); PHOSPHORUS LEVEL 14.2 MG/DL (2.4-5.1); POTASSIUM SERUM 6.9 MMOL/L (3.5-5.1); SODIUM LEVEL 104 MMOL/L (136-145); TOTAL PROTEIN < 2.0 G/DL (5.7-8.2)
[2024-09-08 13:25] LABS: GLUCOSE, FASTING 1190 MG/DL (74-106)
== END 2024-09-08 15:26 | disposition expired | DRG 871 ==
LOC: EDBD 17:01 → M ED 17:01 → M ED INP 20:06 → M ICU 22:12
PROVIDERS: ADMIT Internal Medicine Pulmonary Disease; ATTEND Internal Medicine Pulmonary Disease
PROC: 02HV33Z Insertion of Infusion Device into Superior Vena Cava, Percutaneous Approach (ICD-10-PCS; 2024-09-07)
PROC: 30233N1 Transfusion of Nonautologous Red Blood Cells into Peripheral Vein, Percutaneous Approach (ICD-10-PCS; 2024-09-07)
PROC: 30233K1 Transfusion of Nonautologous Frozen Plasma into Peripheral Vein, Percutaneous Approach (ICD-10-PCS; 2024-09-07)
PROC: B246ZZZ Ultrasonography of Right and Left Heart (ICD-10-PCS; principal; 2024-09-08)
DX: A41.9 Sepsis, unspecified organism (principal); R65.21 Severe sepsis with septic shock; L89.154 Pressure ulcer of sacral region, stage 4; K72.00 Acute and subacute hepatic failure without coma; E87.20 Acidosis, unspecified; N17.9 Acute kidney failure, unspecified; I50.22 Chronic systolic (congestive) heart failure; I13.0 Hypertensive heart and chronic kidney disease with heart failure and stage 1 through stage 4 chronic kidney disease, or unspecified chronic kidney disease; E87.1 Hypo-osmolality and hyponatremia; I25.10 Atherosclerotic heart disease of native coronary artery without angina pectoris; E78.5 Hyperlipidemia, unspecified; I12.9 Hypertensive chronic kidney disease with stage 1 through stage 4 chronic kidney disease, or unspecified chronic kidney disease; G47.33 Obstructive sleep apnea (adult) (pediatric); E11.22 Type 2 diabetes mellitus with diabetic chronic kidney disease; J44.9 Chronic obstructive pulmonary disease, unspecified; K21.9 Gastro-esophageal reflux disease without esophagitis; F41.9 Anxiety disorder, unspecified; F32.A Depression, unspecified; N18.9 Chronic kidney disease, unspecified; F17.200 Nicotine dependence, unspecified, uncomplicated; I87.2 Venous insufficiency (chronic) (peripheral); I46.9 Cardiac arrest, cause unspecified; R57.0 Cardiogenic shock; N49.3 Fournier gangrene; E11.65 Type 2 diabetes mellitus with hyperglycemia; E87.5 Hyperkalemia; Z53.09 Procedure and treatment not carried out because of other contraindication; Z79.82 Long term (current) use of aspirin; Z79.84 Long term (current) use of oral hypoglycemic drugs; Z79.899 Other long term (current) drug therapy; Z93.3 Colostomy status; Z88.5 Allergy status to narcotic agent; Z88.8 Allergy status to other drugs, medicaments and biological substances; Z95.810 Presence of automatic (implantable) cardiac defibrillator; Z90.49 Acquired absence of other specified parts of digestive tract